=== PATIENT | male | born 1970 | race Two or more races ===

== ENCOUNTER 2018-02-10 13:43 | Emergency (ER) | payer SELFPAY ==
[~2018-02-10] VITALS: Ht 165.1 cm; Wt 72.6 kg
[2018-02-10] MEDS ORDERED: SODIUM CHLORIDE 0.9% 1,000 ML IV ONE ×2 (14:15→14:30)
[2018-02-10] MEDS ORDERED: LORazepam 2MG/ML-1ML VIAL IV ONE (14:30)
[2018-02-10 15:06] LABS: Albumin 3.4 g/dL (3.4-5.0); BUN/Creatinine Ratio 5.9; Basophils # (auto) 0.1 uL; Bilirubin, Total 1.7 mg/dL (0.2-1.0); Calcium 7.9 mg/dL (8.5-10.1); Eosinophils # (auto) 0.1 uL; Eosinophils % (auto) 0.7 % (0.0-7.0); Hematocrit 43.8 % (41.0-53.0); Hemoglobin 15.2 g/dL (13.5-17.5); Lymphocytes # (auto) 1.1 uL; Lymphocytes % (auto) 16.4 % (10.0-50.0); Mean Corpuscular Hemoglobin 33.9 pg (28.0-32.0); Mean Corpuscular Hgb Conc. 34.8 g/dL (32.0-36.0); Mean Corpuscular Volume 97.3 fL (80.0-100.0); Monocytes # (auto) 0.6 uL; Monocytes % (auto) 8.9 % (0.0-12.0); Nucleated Red Blood Cells % 0.1 %; Platelet Count (auto) 174 10^3/uL (140-450); Potassium 3.5 mmol/L (3.5-5.1); Total Protein 8.8 g/dL (6.4-8.2); White Blood Cell 6.8 10^3/uL (4.4-10.8)
[2018-02-10 15:40] LABS: Urine Bacteria NONE SEEN /hpf (None Seen); Urine Blood 1+ /uL (Negative); Urine Mucus FEW (None Seen); Urine WBC <1 /hpf (0 - 3)
[2018-02-10 16:27] LABS: Amphetamine Screen, Urine NEGATIVE (NEGATIVE); Barbiturate Scree,Urine NEGATIVE (NEGATIVE); Benzodiazephine Screen, Urine NEGATIVE (NEGATIVE); Cannabinoid Screen, Urine NEGATIVE (NEGATIVE); Cocaine Screen, Urine NEGATIVE (NEGATIVE); Opiate Scree,Urine NEGATIVE (NEGATIVE); Phencyclidine Screen, Urine NEGATIVE (NEGATIVE)
[2018-02-10 17:20] VITALS: BP 159/96
== END 2018-02-10 17:38 | disposition home or self-care (01) ==
LOC: ER 13:46
DX: T78.40XA Allergy, unspecified, initial encounter (principal); F10.239 Alcohol dependence with withdrawal, unspecified; X58.XXXA Exposure to other specified factors, initial encounter
CPT/HCPCS: 36415; 80053; 80307; 80320; 81001; 85025; 93005; 94761; 96361; 96374; 99285; J2060; J7030

== ENCOUNTER 2018-04-02 13:34 | Emergency (ER) | payer MEDICAID ==
[~2018-04-02] VITALS: Ht 165.1 cm; Wt 72.6 kg
[2018-04-02 15:11] VITALS: BP 142/82
[2018-04-02] MEDS ORDERED: GABAPENTIN 300 MG CAP PO ONE (16:15)
== END 2018-04-02 16:21 | disposition home or self-care (01) ==
LOC: ER 13:34
DX: G89.29 Other chronic pain (principal); M79.671 Pain in right foot

== ENCOUNTER → 2020-01-21 | Emergency (ER) | payer MEDICAID ==
[~2020-01-21] VITALS: Ht 165.1 cm; Wt 72.6 kg
[~2020-01-21] MED LIST: LORazepam 2MG/ML-1ML VIAL IV ONE; ONDANSETRON HCL 4 MG/2 ML VIAL IV ONE; SODIUM CHLORIDE 0.9% 1,000 ML IV ONE
[2020-01-21 18:37] LABS: Urine Bacteria NONE SEEN /hpf (None Seen); Urine Blood 2+ /uL (Negative); Urine Mucus FEW (None Seen); Urine Specific Gravity 1.018 (1.001-1.035); Urine WBC 5 /hpf (0 - 3)
[2020-01-21 18:38] LABS: Eosinophils # (auto) 0.1 10 ^3/uL (0-0.8); Hemoglobin 14.4 g/dL (13.5-17.5); Neutrophils # (auto) 4.6 10 ^3/uL (1.6-8.6); White Blood Cell 8.1 10^3/uL (4.4-10.8)
[2020-01-21 18:39] LABS: Urine Hyaline Cast FEW /lpf (0 - 2)
[2020-01-21 18:40] LABS: Basophils # (auto) 0 10 ^3/uL (0-0.2); Basophils % (auto) 0.2 % (0.0-2.0); Eosinophils % (auto) 1.5 % (0.0-7.0); Hematocrit 41.1 % (41.0-53.0); Lymphocytes # (auto) 2.2 10 ^3/uL (0.4-5.4); Lymphocytes % (auto) 27.9 % (10.0-50.0); Mean Corpuscular Hemoglobin 35.8 pg (28.0-32.0); Mean Corpuscular Hgb Conc. 35.1 g/dL (32.0-36.0); Monocytes # (auto) 1.1 10 ^3/uL (0-1.3); Monocytes % (auto) 13.1 % (0.0-12.0); Neutrophils % (auto) 57.3 % (37.0-80.0); Platelet Count (auto) 68 10^3/uL (140-450); Red Blood Cells 4.03 10^6/uL (4.5-5.90); Red Cell Distribution Width 14.5 % (11.8-14.3)
[2020-01-21 18:56] LABS: Albumin 2.5 g/dL (3.4-5.0); BUN/Creatinine Ratio 5.2; Calcium 7.8 mg/dL (8.5-10.1); Potassium 3.6 mmol/L (3.5-5.1)
[2020-01-21 18:58] LABS: Bilirubin, Total 3.4 mg/dL (0.2-1.0); Total Protein 8.7 g/dL (6.4-8.2)
[2020-01-21 19:06] LABS: Amphetamine Screen, Urine NEGATIVE (NEGATIVE); Barbiturate Scree,Urine NEGATIVE (NEGATIVE); Benzodiazephine Screen, Urine NEGATIVE (NEGATIVE); Cannabinoid Screen, Urine NEGATIVE (NEGATIVE); Cocaine Screen, Urine NEGATIVE (NEGATIVE); Opiate Scree,Urine NEGATIVE (NEGATIVE); Phencyclidine Screen, Urine NEGATIVE (NEGATIVE)
[2020-01-22] VITALS: BP 131/75
== END | disposition home or self-care (01) ==
LOC: ER 17:46
DX: F10.239 Alcohol dependence with withdrawal, unspecified (principal); R11.2 Nausea with vomiting, unspecified; R53.1 Weakness; Y90.8 Blood alcohol level of 240 mg/100 ml or more
CPT/HCPCS: 36415; 80053; 80307; 80320; 81001; 82140; 85025; 93005; 96361; 96374; 96375; 99284; J2060; J2405; J7030

== ENCOUNTER 2020-02-25 16:51 | Inpatient (IN) | payer MEDICAID ==
[~2020-02-25] VITALS: Ht 167.6 cm; Wt 72.4 kg
[2020-02-25 18:16] LABS: Basophils # (auto) 0.1 10 ^3/uL (0-0.2); Eosinophils # (auto) 0.2 10 ^3/uL (0-0.8); Eosinophils % (auto) 2.8 % (0.0-7.0); Hemoglobin 13.6 g/dL (13.5-17.5); Monocytes # (auto) 0.9 10 ^3/uL (0-1.3); White Blood Cell 8.4 10^3/uL (4.4-10.8)
[2020-02-25 18:17] LABS: Urine Bacteria FEW /hpf (None Seen); Urine Blood 3+ /uL (Negative); Urine Budding Yeast FEW /hpf (None Seen); Urine Hyaline Cast FEW /lpf (0 - 2); Urine Mucus FEW (None Seen); Urine Specific Gravity 1.018 (1.001-1.035); Urine WBC 8 /hpf (0 - 3)
[2020-02-25 18:18] LABS: Hematocrit 39.7 % (41.0-53.0); Lymphocytes # (auto) 1.9 10 ^3/uL (0.4-5.4); Lymphocytes % (auto) 22.8 % (10.0-50.0); Mean Corpuscular Hemoglobin 35.9 pg (28.0-32.0); Mean Corpuscular Hgb Conc. 34.4 g/dL (32.0-36.0); Mean Corpuscular Volume 104.4 fL (80.0-100.0); Monocytes % (auto) 10.5 % (0.0-12.0); Neutrophils # (auto) 5.3 10 ^3/uL (1.6-8.6); Neutrophils % (auto) 62.9 % (37.0-80.0); Platelet Count (auto) 198 10^3/uL (140-450); Red Cell Distribution Width 13.9 % (11.8-14.3)
[2020-02-25 18:25] LABS: Albumin 2.2 g/dL (3.4-5.0); BUN/Creatinine Ratio 5.1; Calcium 7.6 mg/dL (8.5-10.1); Potassium 3.7 mmol/L (3.5-5.1)
[2020-02-25 18:28] LABS: Bilirubin, Total 2.9 mg/dL (0.2-1.0); Total Protein 7.9 g/dL (6.4-8.2)
[2020-02-25] MEDS ORDERED: MORPHINE SULF INJ 2 MG/ML SYRINGE 1ML IV PRN (20:30)
[2020-02-25] MEDS ORDERED: CEFOTAXIME SODIUM 1 GM in D5W 5% 50 ML IV ONE (20:30)
[2020-02-25] MEDS ORDERED: FUROSEMIDE 100 MG/10ML VIAL IV ONE (20:30)
[2020-02-25] MEDS ORDERED: NITROGLYCERIN 0.4 MG SL TAB SL PRN (20:30)
[2020-02-25] MEDS ORDERED: ALBUMIN 25% 100 ML IV SCH (20:30)
[2020-02-25] MEDS ORDERED: ALBUMIN 5% 50 ML IV ONE (20:30)
[2020-02-25] MEDS ORDERED: PROPRANOLOL HCL 20 MG TAB PO ONE (20:30)
[2020-02-25] MEDS ORDERED: LORazepam 2MG/ML-1ML VIAL IV PRN (20:30)
[2020-02-25] MEDS ORDERED: LACTULOSE 20Gm/30ML SOLN PO ONE (20:45)
[2020-02-25] MEDS ORDERED: LACTULOSE 20Gm/30ML SOLN PR ONE (20:45)
[2020-02-25 22:30] VITALS: BP 151/85
--- NOTE | 2020-02-25 22:30 | NUR ---
Telemetry admit from ER JIAN ETIENNE admitted to Telemetry unit.. Patient oriented to Kim Donald RN primary RN, unit, room, bed, and unit policies regarding patient care and visiting hours. Patient now on continuous telemetry monitoring, tele box # 65. Patient weighed by bedscale and encouraged to call if they need something. All questions and concerns addressed, patient verbalized understanding. Bed is in lowest locked position with bed rails up x2 and call light is within reach of the patient.
[2020-02-25 22:58] VITALS: BP 151/85
[2020-02-26] MEDS ORDERED: PIPERACILLIN-TAZOB 3.375GM 100 ML IV SCH
--- NOTE | 2020-02-26 | NUR ---
Reconcile meds: Patient unable to recall medications from home. Asked the patient if in the AM he could contact brothers to send medication list for medication reconciliation and to notify the nurse. Patient verbalized understanding. Will notify day shift nurse.
--- NOTE | 2020-02-26 00:02 | NUR ---
Hospitalist paged: Paged Hospitalist regarding patients nausea. No nausea medication ordered. Waiting for call back.
--- NOTE | 2020-02-26 00:39 | NUR ---
Hospitalist called back: Hospitalist Adan called back. Updated about patient and notified that the patient was having some nausea with no nuasea medication ordered. New orders received. To place orders.
[2020-02-26] MEDS ORDERED: ONDANSETRON HCL 4 MG/2 ML VIAL IV PRN (00:45)
--- NOTE | 2020-02-26 03:50 | NUR ---
Called lab to verify if Mrsa swab was received: Called lab to verify if MRSA swab of nares was received. tattoo technician confirmed that it was received and that they have it, and that it will take a while to process.
[2020-02-26 05:52] VITALS: BP 125/73
[2020-02-26] MEDS ORDERED: CEFOTAXIME SODIUM 1 GM in D5W 5% 50 ML IV SCH (06:00)
[2020-02-26] MEDS ORDERED: FUROSEMIDE 20 MG/2 ML VIAL IV SCH (06:00)
[2020-02-26] MEDS: LACTULOSE 20Gm/30ML SOLN PO SCH ×3 (06:03→17:37)
[2020-02-26 07:17] LABS: Basophils # (auto) 0.1 10 ^3/uL (0-0.2); Eosinophils # (auto) 0.2 10 ^3/uL (0-0.8); Hematocrit 37.4 % (41.0-53.0); Monocytes # (auto) 0.7 10 ^3/uL (0-1.3); Neutrophils # (auto) 4.4 10 ^3/uL (1.6-8.6); White Blood Cell 6.5 10^3/uL (4.4-10.8)
[2020-02-26 07:20] LABS: Eosinophils % (auto) 3.3 % (0.0-7.0); Hemoglobin 13.1 g/dL (13.5-17.5); Lymphocytes # (auto) 1.2 10 ^3/uL (0.4-5.4); Lymphocytes % (auto) 17.7 % (10.0-50.0); Mean Corpuscular Hemoglobin 36.3 pg (28.0-32.0); Mean Corpuscular Hgb Conc. 35.1 g/dL (32.0-36.0); Mean Corpuscular Volume 103.6 fL (80.0-100.0); Monocytes % (auto) 11.2 % (0.0-12.0); Neutrophils % (auto) 66.8 % (37.0-80.0); Nucleated Red Blood Cells % 0.2 %; Platelet Count (auto) 168 10^3/uL (140-450); Red Blood Cells 3.61 10^6/uL (4.5-5.90); Red Cell Distribution Width 13.9 % (11.8-14.3)
[2020-02-26 07:30] LABS: INR 1.33 (0.9-1.15); Partial Thromboplastin Time 31.2 sec (23.64-32.05)
--- NOTE | 2020-02-26 07:30 | NUR ---
No diet ordered. With orders for Paracentesis.
--- NOTE | 2020-02-26 07:31 | NUR ---
Closing note: Patient resting in bed with breaths even and unlabored. Reminded patient to obtain his medication list from home. Patient verbalized understanding. Bed is in lowest locked position with bed rails up x2 and call light is within reach. Care endorsed to day shift nurse.
[2020-02-26 07:34] LABS: Magnesium 1.4 mg/dL (1.6-2.6); Potassium 3.1 mmol/L (3.5-5.1)
[2020-02-26 07:41] LABS: BUN/Creatinine Ratio 5.3; Bilirubin, Total 3.5 mg/dL (0.2-1.0); Calcium 7.3 mg/dL (8.5-10.1); Phosphorus 3.1 mg/dL (2.5-4.90); Total Protein 7.3 g/dL (6.4-8.2)
--- NOTE | 2020-02-26 08:05 | NUR ---
Patient in bed, awake. Enlarged, distended abdomen noted. Tumbler Machine Operator Helper at bedside.
[2020-02-26 09:00] VITALS: BP 124/80
--- NOTE | 2020-02-26 09:35 | NUR ---
Patient complained he's hungry. No diet ordered. Virgil hare MD.
--- NOTE | 2020-02-26 09:40 | NUR ---
Paged Dr. Martinez.
--- NOTE | 2020-02-26 09:46 | NUR ---
Called Radiology. Spoke with Melissa. No specific time for Paracentesis today, patient can eat as per Radiology.
--- NOTE | 2020-02-26 10:10 | NUR ---
Tour Bus Driver at bedside explaining to patient the Paracentesis.
[2020-02-26] MEDS: PROPRANOLOL HCL 20 MG TAB PO SCH ×2 (10:12→21:56)
[2020-02-26] MEDS: cefTRIAXone 1GM/50ML D5W 50 ML IV SCH (10:12)
[2020-02-26] MEDS: SPIRONOLACTONE 25 MG TAB PO SCH (10:13)
[2020-02-26] MEDS: DOCUSATE SOD 100 MG CAP PO SCH ×2 (10:13→21:56)
[2020-02-26] MEDS: LISINOPRIL 10 MG TAB PO SCH (10:13)
--- NOTE | 2020-02-26 10:15 | NUR ---
Patient stated he will think about in 30 minutes if he will have the Paracentesis today or not.
--- NOTE | 2020-02-26 10:45 | NUR ---
Patient stated he wants to have the Paracentesis.
--- NOTE | 2020-02-26 11:22 | NUR ---
Patient complained of two bulges under his right and left jawline. Will inform the MD.
[2020-02-26] MEDS ORDERED: POTASSIUM CHLORIDE 40 MEQ, LIDOCAINE 1% (LOCAL ANESTH.) 4 ML in SODIUM CHL 0.9% 100 ML IV ONE (12:00)
--- NOTE | 2020-02-26 12:00 | NUR ---
Yusuf Fournier came over. to put in new orders. Dr. Jeff ordered low salt diet after the Paracentesis.
--- NOTE | 2020-02-26 12:05 | NUR ---
Eusebio Diaz has seen the patient for GI Consult. is aware of the Paracentesis. Dr. Boykin put in new orders.
[2020-02-26] MEDS: MAGNESIUM SULFATE 1GM/100ML 100 ML IV SCH ×2 (12:34→14:41)
--- NOTE | 2020-02-26 12:40 | NUR ---
New IV line started on the right AC, 20 gauge, in one attempt, intact and patent. Patient able to tolerate it.
[2020-02-26 13:00] VITALS: BP 133/92
--- NOTE | 2020-02-26 13:20 | NUR ---
Patient off unit. At Radiology for Paracentesis.
--- NOTE | 2020-02-26 14:40 | NUR ---
Patient back to room post paracentesis.
[2020-02-26 16:50] VITALS: BP 144/86
--- NOTE | 2020-02-26 19:20 | NUR ---
Opening Shift Note Assumed care of patient. Patient is awake and alert. No S/S of distress/SOB or pain. Instructed on POC and to call for assist PRN, will continue to monitor for changes Q1hr and PRN. Bed locked in lowest position and bed rails up x2. Call light within reach.
[2020-02-26 22:00] VITALS: BP 125/73
[2020-02-27] MEDS: LACTULOSE 20Gm/30ML SOLN PO SCH ×3 (00:03→11:53)
[2020-02-27 05:00] VITALS: BP 135/77
[2020-02-27 06:22] LABS: Basophils # (auto) 0 10 ^3/uL (0-0.2); Eosinophils # (auto) 0.2 10 ^3/uL (0-0.8); Lymphocytes # (auto) 1.2 10 ^3/uL (0.4-5.4); Monocytes # (auto) 0.8 10 ^3/uL (0-1.3); White Blood Cell 7.6 10^3/uL (4.4-10.8)
[2020-02-27 06:24] LABS: Basophils % (auto) 0.6 % (0.0-2.0); Eosinophils % (auto) 2.4 % (0.0-7.0); Hematocrit 36.8 % (41.0-53.0); Lymphocytes % (auto) 15.9 % (10.0-50.0); Mean Corpuscular Hemoglobin 36.9 pg (28.0-32.0); Mean Corpuscular Hgb Conc. 35.4 g/dL (32.0-36.0); Mean Corpuscular Volume 104.2 fL (80.0-100.0); Monocytes % (auto) 10.8 % (0.0-12.0); Neutrophils # (auto) 5.4 10 ^3/uL (1.6-8.6); Neutrophils % (auto) 70.3 % (37.0-80.0); Platelet Count (auto) 117 10^3/uL (140-450); Red Blood Cells 3.53 10^6/uL (4.5-5.90); Red Cell Distribution Width 13.4 % (11.8-14.3)
[2020-02-27 06:37] LABS: Potassium 3.2 mmol/L (3.5-5.1)
[2020-02-27 06:50] LABS: Albumin 1.7 g/dL (3.4-5.0); BUN/Creatinine Ratio 11.6; Bilirubin, Total 4.6 mg/dL (0.2-1.0); Calcium 7.2 mg/dL (8.5-10.1); Magnesium 1.8 mg/dL (1.6-2.6); Total Protein 6.4 g/dL (6.4-8.2)
[2020-02-27 09:00] VITALS: BP 141/85
[2020-02-27] MEDS: cefTRIAXone 1GM/50ML D5W 50 ML IV SCH (09:04)
[2020-02-27] MEDS: SPIRONOLACTONE 25 MG TAB PO SCH (09:05)
[2020-02-27] MEDS: DOCUSATE SOD 100 MG CAP PO SCH (09:05)
[2020-02-27] MEDS: PROPRANOLOL HCL 20 MG TAB PO SCH (09:07)
[2020-02-27] MEDS: LISINOPRIL 10 MG TAB PO SCH (09:08)
[2020-02-27] MEDS ORDERED: FUROSEMIDE 20 MG TAB PO SCH (10:00)
[2020-02-27 12:32] VITALS: BP 130/77
--- NOTE | 2020-02-27 12:43 | NUR ---
AMA Note JIAN ETIENNE states they want to leave the hospital Against Medical Advice (AMA). Patient encouraged to stay for further treatment/stabilization. Doctor Randee paged to inform of patient's wishes. Patient advised of the risks and benefits of leaving AMA. Patient verbalized understanding. Patient encouraged to return to the ER if symptoms do not improve or worsen. IV removed with catheter intact, pressure dressing applied. Telemetry unit returned to ICU. Patient ambulated to elevator with with all personal belongings.
[2020-02-29 14:13] LABS: Hepatitis A Ab IgM Negative; Hepatitis B Core IgM Negative; Hepatitis B Surface Antigen Negative (Negative); Hepatitis C Antibody Negative (Negative)
== END 2020-02-27 12:43 | disposition left against medical advice (07) | DRG 279 ==
LOC: ER 16:51 → TELE 16:52 → TELE-WESTW 22:32
PROVIDERS: ADMIT Hospitalist; ATTEND Internal Medicine
PROC: 0W9G3ZZ Drainage of Peritoneal Cavity, Percutaneous Approach (ICD-10-PCS; principal; 2020-02-26)
DX: K72.90 Hepatic failure, unspecified without coma (principal); E43 Unspecified severe protein-calorie malnutrition; K65.9 Peritonitis, unspecified; E72.20 Disorder of urea cycle metabolism, unspecified; K70.31 Alcoholic cirrhosis of liver with ascites; K76.6 Portal hypertension; I16.9 Hypertensive crisis, unspecified; F10.10 Alcohol abuse, uncomplicated; F17.200 Nicotine dependence, unspecified, uncomplicated; E87.6 Hypokalemia; Z91.19 Patient's noncompliance with other medical treatment and regimen; Z79.899 Other long term (current) drug therapy; Z68.25 Body mass index [BMI] 25.0-25.9, adult; Z53.29 Procedure and treatment not carried out because of patient's decision for other reasons
CPT/HCPCS: 10022; 36415; 74176; 76705; 76942; 80053; 80061; 80074; 81001; 82105; 82140; 82378; 82728; 83036; 83735; 83986; 84100; 85025; 85610; 85730; 87081; 87205; 89051; 96365; 96375; G0378; J0696; J2001; J2543; J7060

== ENCOUNTER 2020-03-11 23:45 | Emergency (ER) | payer MEDICAID ==
[~2020-03-11] VITALS: Ht 167.6 cm; Wt 72.6 kg
[2020-03-11 23:46] VITALS: BP 145/86
== END 2020-03-12 00:43 | disposition left against medical advice (07) ==
LOC: EDBD 23:45 → EDUNIT# 23:45 → ER 23:47
DX: F10.10 Alcohol abuse, uncomplicated (principal); Z53.21 Procedure and treatment not carried out due to patient leaving prior to being seen by health care provider

== ENCOUNTER 2020-03-14 01:06 | Inpatient (IN) | payer MEDICAID ==
[2020-03-14] VITALS (14 sets, daily range): BP systolic 132–154; BP diastolic 80–97
[~2020-03-14] VITALS: Ht 165.1 cm; Wt 73.7 kg
[2020-03-14 02:00] LABS: Eosinophils # (auto) 0.3 10 ^3/uL (0-0.8); Hemoglobin 14.2 g/dL (13.5-17.5); Monocytes # (auto) 0.8 10 ^3/uL (0-1.3)
[2020-03-14 02:02] LABS: Basophils # (auto) 0.1 10 ^3/uL (0-0.2); Basophils % (auto) 1.5 % (0.0-2.0); Eosinophils % (auto) 3.3 % (0.0-7.0); Hematocrit 41.3 % (41.0-53.0); Lymphocytes # (auto) 2.3 10 ^3/uL (0.4-5.4); Lymphocytes % (auto) 24.9 % (10.0-50.0); Mean Corpuscular Hemoglobin 35.9 pg (28.0-32.0); Mean Corpuscular Hgb Conc. 34.4 g/dL (32.0-36.0); Mean Corpuscular Volume 104.2 fL (80.0-100.0); Monocytes % (auto) 8.8 % (0.0-12.0); Neutrophils # (auto) 5.7 10 ^3/uL (1.6-8.6); Neutrophils % (auto) 61.5 % (37.0-80.0); Nucleated Red Blood Cells % 0.1 %; Platelet Count (auto) 232 10^3/uL (140-450); Red Blood Cells 3.96 10^6/uL (4.5-5.90); Red Cell Distribution Width 13.4 % (11.8-14.3); White Blood Cell 9.3 10^3/uL (4.4-10.8)
[2020-03-14 02:18] LABS: Potassium 4.4 mmol/L (3.5-5.1)
[2020-03-14 02:19] LABS: Calcium 7.7 mg/dL (8.5-10.1)
[2020-03-14 02:22] LABS: BUN/Creatinine Ratio 7.7; Bilirubin, Total 3.3 mg/dL (0.2-1.0); Total Protein 8.2 g/dL (6.4-8.2)
[2020-03-14] MEDS ORDERED: MULTIPLE VITAMIN TAB PO ONE (02:45)
[2020-03-14] MEDS ORDERED: FOLIC ACID 1 MG TAB PO ONE (02:45)
[2020-03-14] MEDS ORDERED: THIAMINE 100mg/ml INJ (200mg/2ml VIAL) IV ONE (02:45)
[2020-03-14] MEDS ORDERED: DOCUSATE SOD 100 MG CAP PO PRN (03:00)
[2020-03-14] MEDS ORDERED: HYDROcodone-ACET 5/325MG TAB PO PRN (03:00)
[2020-03-14] MEDS ORDERED: DEXTROSE (50%) 50ML SYRG IV PRN (03:00)
[2020-03-14] MEDS ORDERED: ONDANSETRON HCL 4 MG/2 ML VIAL IV PRN (03:00)
[2020-03-14] MEDS ORDERED: MORPHINE SULF INJ 2 MG/ML SYRINGE 1ML IV PRN (03:00)
[2020-03-14] MEDS ORDERED: ACETAMINOPHEN 325 MG TAB PO PRN (03:00)
[2020-03-14] MEDS ORDERED: LACTULOSE 20Gm/30ML SOLN PO ONE (03:45)
[2020-03-14] MEDS: chlordiazePOXIDE HCL 25 MG CAP PO SCH ×3 (03:47→18:28)
[2020-03-14] MEDS: ACCU-CHEK COMFORT CURVE STRIP VI SCH ×5 (03:48→23:24)
[2020-03-14] MEDS: InsuLIN REG 1unit/0.01ml Soln (100units/ml) SC SCH ×5 (03:48→20:00)
[2020-03-14 04:11] LABS: Urine Amorphous Crystal FEW /hpf (None Seen); Urine Bacteria FEW /hpf (None Seen); Urine Blood 3+ /uL (Negative); Urine Hyaline Cast MANY /lpf (0 - 2); Urine Mucus FEW (None Seen); Urine Specific Gravity 1.022 (1.001-1.035); Urine WBC 9 /hpf (0 - 3)
[2020-03-14 04:21] LABS: Amphetamine Screen, Urine NEGATIVE (NEGATIVE); Barbiturate Scree,Urine NEGATIVE (NEGATIVE); Benzodiazephine Screen, Urine NEGATIVE (NEGATIVE); Cannabinoid Screen, Urine NEGATIVE (NEGATIVE); Cocaine Screen, Urine NEGATIVE (NEGATIVE); Opiate Scree,Urine NEGATIVE (NEGATIVE); Phencyclidine Screen, Urine NEGATIVE (NEGATIVE)
[2020-03-14 07:16] LABS: Basophils # (auto) 0.1 10 ^3/uL (0-0.2); Eosinophils # (auto) 0.2 10 ^3/uL (0-0.8); Mean Corpuscular Volume 103.2 fL (80.0-100.0)
[2020-03-14 07:18] LABS: Basophils % (auto) 0.8 % (0.0-2.0); Eosinophils % (auto) 2.6 % (0.0-7.0); Hematocrit 38.1 % (41.0-53.0); Hemoglobin 13.2 g/dL (13.5-17.5); Lymphocytes # (auto) 1.5 10 ^3/uL (0.4-5.4); Lymphocytes % (auto) 23.9 % (10.0-50.0); Mean Corpuscular Hemoglobin 35.9 pg (28.0-32.0); Mean Corpuscular Hgb Conc. 34.8 g/dL (32.0-36.0); Monocytes # (auto) 0.7 10 ^3/uL (0-1.3); Monocytes % (auto) 10.3 % (0.0-12.0); Neutrophils % (auto) 62.4 % (37.0-80.0); Nucleated Red Blood Cells % 0.1 %; Platelet Count (auto) 152 10^3/uL (140-450); Red Blood Cells 3.69 10^6/uL (4.5-5.90); White Blood Cell 6.4 10^3/uL (4.4-10.8)
[2020-03-14 07:23] LABS: Calcium 7.6 mg/dL (8.5-10.1)
[2020-03-14 07:26] LABS: BUN/Creatinine Ratio 8.8
[2020-03-14 08:23] LABS: INR 1.3 (0.9-1.15)
[2020-03-14] MEDS: CYANOCOBALAMIN 500 MCG TAB PO SCH (10:00)
[2020-03-14] MEDS: FOLIC ACID 1 MG TAB PO SCH (10:00)
[2020-03-14] MEDS: LACTULOSE 20Gm/30ML SOLN PO SCH (16:03)
[2020-03-14] MEDS: FUROSEMIDE 20 MG TAB PO SCH (16:04)
[2020-03-14] MEDS: SPIRONOLACTONE 25 MG TAB PO SCH (16:04)
[2020-03-15] MEDS: ACCU-CHEK COMFORT CURVE STRIP VI SCH ×3 (00:26→10:31)
[2020-03-15] MEDS: InsuLIN REG 1unit/0.01ml Soln (100units/ml) SC SCH ×3 (04:00→10:32)
[2020-03-15 05:00] VITALS: BP_SYST 151; BP_SYST 157; BP_DIAS 92; BP_DIAS 95
[2020-03-15 05:49] LABS: Basophils # (auto) 0 10 ^3/uL (0-0.2); Basophils % (auto) 0.7 % (0.0-2.0); Eosinophils # (auto) 0.3 10 ^3/uL (0-0.8); Hemoglobin 12.9 g/dL (13.5-17.5); Monocytes # (auto) 0.5 10 ^3/uL (0-1.3); Monocytes % (auto) 9.6 % (0.0-12.0); Neutrophils # (auto) 2.9 10 ^3/uL (1.6-8.6)
[2020-03-15 05:52] LABS: Eosinophils % (auto) 5.6 % (0.0-7.0); Hematocrit 36.8 % (41.0-53.0); Lymphocytes # (auto) 1.1 10 ^3/uL (0.4-5.4); Lymphocytes % (auto) 23.6 % (10.0-50.0); Mean Corpuscular Hemoglobin 36.4 pg (28.0-32.0); Mean Corpuscular Hgb Conc. 35.1 g/dL (32.0-36.0); Mean Corpuscular Volume 103.9 fL (80.0-100.0); Neutrophils % (auto) 60.5 % (37.0-80.0); Platelet Count (auto) 95 10^3/uL (140-450); Red Blood Cells 3.54 10^6/uL (4.5-5.90); Red Cell Distribution Width 12.9 % (11.8-14.3); White Blood Cell 4.8 10^3/uL (4.4-10.8)
[2020-03-15 06:14] LABS: Albumin 1.5 g/dL (3.4-5.0); BUN/Creatinine Ratio 12.9; Bilirubin, Total 5.3 mg/dL (0.2-1.0); Potassium 3.5 mmol/L (3.5-5.1); Total Protein 6.3 g/dL (6.4-8.2)
[2020-03-15 09:00] VITALS: BP 161/94
[2020-03-15] MEDS ORDERED: chlordiazePOXIDE HCL 25 MG CAP PO SCH (10:00)
[2020-03-15] MEDS: FUROSEMIDE 20 MG TAB PO SCH (10:05)
[2020-03-15] MEDS: CYANOCOBALAMIN 500 MCG TAB PO SCH (10:05)
[2020-03-15] MEDS: SPIRONOLACTONE 25 MG TAB PO SCH (10:05)
[2020-03-15] MEDS: FOLIC ACID 1 MG TAB PO SCH (10:05)
[2020-03-15] MEDS: LACTULOSE 20Gm/30ML SOLN PO SCH (10:31)
[2020-03-16] MEDS ORDERED: chlordiazePOXIDE HCL 25 MG CAP PO SCH (10:00)
[2020-03-17] MEDS ORDERED: chlordiazePOXIDE HCL 25 MG CAP PO SCH (07:00)
== END 2020-03-15 12:35 | disposition home or self-care (01) | DRG 280 ==
LOC: ER 01:07 → OVERFLOW 01:08 → WEST WING 04:47
PROVIDERS: ADMIT Hospitalist; ATTEND Internal Medicine
PROC: 0W9G3ZX Drainage of Peritoneal Cavity, Percutaneous Approach, Diagnostic (ICD-10-PCS; principal; 2020-03-14)
DX: K70.31 Alcoholic cirrhosis of liver with ascites (principal); E43 Unspecified severe protein-calorie malnutrition; G92 Toxic encephalopathy; D69.59 Other secondary thrombocytopenia; K76.6 Portal hypertension; E88.09 Other disorders of plasma-protein metabolism, not elsewhere classified; R60.1 Generalized edema; I10 Essential (primary) hypertension; R73.9 Hyperglycemia, unspecified; F10.129 Alcohol abuse with intoxication, unspecified; Y90.0 Blood alcohol level of less than 20 mg/100 ml; Z82.49 Family history of ischemic heart disease and other diseases of the circulatory system; Z91.14 Patient's other noncompliance with medication regimen; Z68.27 Body mass index [BMI] 27.0-27.9, adult; Z79.899 Other long term (current) drug therapy
CPT/HCPCS: 10022; 36415; 74176; 76942; 80048; 80053; 80307; 80320; 81001; 82140; 82150; 82962; 83036; 83690; 83986; 85025; 85610; 87081; 87205; 89051; G0378; J1815

== ENCOUNTER 2020-04-09 22:27 | Inpatient (IN) | payer MEDICAID ==
[~2020-04-09] VITALS: Ht 167.6 cm; Wt 74.8 kg
[2020-04-09 23:01] LABS: Eosinophils # (auto) 0.2 10 ^3/uL (0-0.8); Mean Corpuscular Hemoglobin 36.2 pg (28.0-32.0); Mean Corpuscular Hgb Conc. 35.1 g/dL (32.0-36.0); Monocytes # (auto) 0.8 10 ^3/uL (0-1.3)
[2020-04-09 23:03] LABS: Basophils # (auto) 0.1 10 ^3/uL (0-0.2); Basophils % (auto) 0.8 % (0.0-2.0); Eosinophils % (auto) 2.8 % (0.0-7.0); Hematocrit 38.1 % (41.0-53.0); Hemoglobin 13.4 g/dL (13.5-17.5); Lymphocytes # (auto) 1.4 10 ^3/uL (0.4-5.4); Lymphocytes % (auto) 19.5 % (10.0-50.0); Mean Corpuscular Volume 103.1 fL (80.0-100.0); Monocytes % (auto) 11.7 % (0.0-12.0); Neutrophils # (auto) 4.6 10 ^3/uL (1.6-8.6); Neutrophils % (auto) 65.2 % (37.0-80.0); Nucleated Red Blood Cells % 0.1 %; Red Cell Distribution Width 13.8 % (11.8-14.3)
[2020-04-09 23:04] LABS: Platelet Count (auto) 82 10^3/uL (140-450)
[2020-04-09 23:15] LABS: INR 1.29 (0.9-1.15); Partial Thromboplastin Time 29.2 sec (23.64-32.05)
[2020-04-09 23:19] LABS: BUN/Creatinine Ratio 5.5; Calcium 7.8 mg/dL (8.5-10.1); Potassium 3.5 mmol/L (3.5-5.1)
[2020-04-10] MEDS ORDERED: SODIUM CHLORIDE 0.9% 1,000 ML IV ONE (08:47)
[2020-04-10] MEDS ORDERED: PANTOPRAZOLE 40 MG/10 ML VIAL INJ IV STA (08:47)
[2020-04-10] MEDS ORDERED: FUROSEMIDE 40 MG/4 ML VIAL ONE (08:58)
[2020-04-10] MEDS ORDERED: LORazepam 2MG/ML-1ML VIAL IV ONE (09:00)
[2020-04-10] MEDS ORDERED: LACTULOSE 20Gm/30ML SOLN PO ONE (09:00)
[2020-04-10] MEDS ORDERED: FUROSEMIDE 40 MG/4 ML VIAL IV ONE (09:00)
[2020-04-10] MEDS ORDERED: SPIRONOLACTONE 25 MG TAB PO ONE (09:00)
[2020-04-10 10:24] LABS: Magnesium 1.7 mg/dL (1.6-2.6)
[2020-04-10 10:53] LABS: Urine Bacteria FEW /hpf (None Seen); Urine Blood 3+ /uL (Negative); Urine Specific Gravity 1.006 (1.001-1.035); Urine WBC 3 /hpf (0 - 3)
[2020-04-10] MEDS ORDERED: NITROGLYCERIN 0.4 MG SL TAB SL PRN (12:30)
[2020-04-10] MEDS ORDERED: MORPHINE SULF INJ 2 MG/ML SYRINGE 1ML IV PRN (12:30)
[2020-04-10] MEDS: FOLIC ACID 1 MG TAB PO SCH (12:44)
[2020-04-10] MEDS: MULTIPLE VITAMIN TAB PO SCH (12:45)
[2020-04-10] MEDS: THIAMINE 100mg/ml INJ (200mg/2ml VIAL) IV SCH (12:45)
[2020-04-10 14:05] LABS: Amphetamine Screen, Urine NEGATIVE (NEGATIVE); Barbiturate Scree,Urine NEGATIVE (NEGATIVE); Benzodiazephine Screen, Urine NEGATIVE (NEGATIVE); Cannabinoid Screen, Urine NEGATIVE (NEGATIVE); Cocaine Screen, Urine NEGATIVE (NEGATIVE); Opiate Scree,Urine NEGATIVE (NEGATIVE); Phencyclidine Screen, Urine NEGATIVE (NEGATIVE)
[2020-04-10] MEDS: FUROSEMIDE 20 MG/2 ML VIAL IV SCH (18:14)
[2020-04-10] MEDS: chlordiazePOXIDE HCL 25 MG CAP PO SCH ×2 (18:28→23:46)
[2020-04-10] MEDS: PROPRANOLOL HCL 20 MG TAB PO SCH (21:47)
[2020-04-11] MEDS: chlordiazePOXIDE HCL 25 MG CAP PO SCH ×4 (05:44→23:59)
[2020-04-11] MEDS: FUROSEMIDE 20 MG/2 ML VIAL IV SCH (05:50)
[2020-04-11] MEDS: FOLIC ACID 1 MG TAB PO SCH (09:22)
[2020-04-11] MEDS: MULTIPLE VITAMIN TAB PO SCH (09:22)
[2020-04-11] MEDS: SPIRONOLACTONE 25 MG TAB PO SCH (09:23)
[2020-04-11] MEDS: PROPRANOLOL HCL 20 MG TAB PO SCH ×2 (09:24→21:45)
[2020-04-11] MEDS: THIAMINE 100mg/ml INJ (200mg/2ml VIAL) IV SCH (09:29)
[2020-04-11 11:37] VITALS: BP 123/85
[2020-04-11 13:00] VITALS: BP 123/85
[2020-04-11] MEDS ORDERED: ALBUMIN 25% 100 ML IV SCH (13:00)
[2020-04-11 16:54] VITALS: BP 129/79
[2020-04-11] MEDS ORDERED: PROP10TA57 PO (18:34)
[2020-04-11] MEDS ORDERED: FURO40TA4 PO (18:34)
[2020-04-11] MEDS ORDERED: SPIR50TA5 PO (18:34)
[2020-04-11] MEDS ORDERED: LACT10SO59 PO (18:34)
[2020-04-11 22:00] VITALS: BP 119/78
[2020-04-12 05:52] VITALS: BP 115/66
[2020-04-12] MEDS: chlordiazePOXIDE HCL 25 MG CAP PO SCH ×2 (06:45→12:04)
[2020-04-12 08:46] VITALS: BP 100/62
[2020-04-12] MEDS ORDERED: THIAMINE HCL 100 MG TAB PO SCH (10:00)
[2020-04-12] MEDS: MULTIPLE VITAMIN TAB PO SCH (10:00)
[2020-04-12] MEDS: PROPRANOLOL HCL 20 MG TAB PO SCH (10:00)
[2020-04-12] MEDS ORDERED: FUROSEMIDE 40 MG TAB PO SCH (10:00)
[2020-04-12] MEDS: SPIRONOLACTONE 25 MG TAB PO SCH (10:00)
[2020-04-12] MEDS: FOLIC ACID 1 MG TAB PO SCH (10:00)
[2020-04-12] MEDS ORDERED: MULTTAB99 PO (10:52)
[2020-04-12 12:54] VITALS: BP 118/73
[2020-04-12] MEDS: ALBUMIN 25% 100 ML IV SCH ×2 (13:28→14:58)
[2020-04-12 15:01] VITALS: BP 118/73
== END 2020-04-12 16:37 | disposition home or self-care (01) | DRG 280 ==
LOC: ER 22:28 → TELE 22:29 → TELE-CENTR 04-11 10:53 → CENTRAL 04-11 20:15
PROVIDERS: ADMIT Nurse Practitioner Acute Care; ATTEND Internal Medicine
PROC: 0W9G3ZZ Drainage of Peritoneal Cavity, Percutaneous Approach (ICD-10-PCS; principal; 2020-04-12)
DX: K70.31 Alcoholic cirrhosis of liver with ascites (principal); E43 Unspecified severe protein-calorie malnutrition; D69.6 Thrombocytopenia, unspecified; D68.9 Coagulation defect, unspecified; K76.6 Portal hypertension; E88.09 Other disorders of plasma-protein metabolism, not elsewhere classified; F10.239 Alcohol dependence with withdrawal, unspecified; I10 Essential (primary) hypertension; D63.8 Anemia in other chronic diseases classified elsewhere; Z91.14 Patient's other noncompliance with medication regimen; Z80.8 Family history of malignant neoplasm of other organs or systems; Z79.899 Other long term (current) drug therapy; Z82.49 Family history of ischemic heart disease and other diseases of the circulatory system; Z68.26 Body mass index [BMI] 26.0-26.9, adult
CPT/HCPCS: 10022; 36415; 49083; 71046; 76705; 76942; 80053; 80307; 81001; 82140; 83690; 83735; 85025; 85610; 85730; 93005; 96361; 96374; 96375; C9113; G0378; P9047

== ENCOUNTER → 2020-04-25 | Emergency (ER) | payer MEDICAID ==
[~2020-04-25] VITALS: Ht 165.1 cm; Wt 79.8 kg
[~2020-04-25] MED LIST changes: +FURO40TA4 PO; +LACT10SO59 PO; -LORazepam 2MG/ML-1ML VIAL IV ONE; +MULTTAB99 PO; -ONDANSETRON HCL 4 MG/2 ML VIAL IV ONE; +PROP10TA57 PO; -SODIUM CHLORIDE 0.9% 1,000 ML IV ONE; +SPIR50TA5 PO
[2020-04-25 08:58] LABS: Basophils # (auto) 0.1 10 ^3/uL (0-0.2); Eosinophils # (auto) 0.1 10 ^3/uL (0-0.8); Eosinophils % (auto) 2.3 % (0.0-7.0); Hemoglobin 12.7 g/dL (13.5-17.5); Neutrophils % (auto) 72.3 % (37.0-80.0)
[2020-04-25 09:00] LABS: Basophils % (auto) 0.9 % (0.0-2.0); Hematocrit 36.3 % (41.0-53.0); Lymphocytes # (auto) 0.9 10 ^3/uL (0.4-5.4); Mean Corpuscular Hemoglobin 36.4 pg (28.0-32.0); Mean Corpuscular Hgb Conc. 35.1 g/dL (32.0-36.0); Mean Corpuscular Volume 103.7 fL (80.0-100.0); Monocytes # (auto) 0.6 10 ^3/uL (0-1.3); Monocytes % (auto) 10.5 % (0.0-12.0); Neutrophils # (auto) 4.5 10 ^3/uL (1.6-8.6); Nucleated Red Blood Cells % 0.1 %; Platelet Count (auto) 141 10^3/uL (140-450); Red Cell Distribution Width 14.3 % (11.8-14.3); White Blood Cell 6.2 10^3/uL (4.4-10.8)
[2020-04-25 09:12] LABS: INR 1.34 (0.9-1.15); Partial Thromboplastin Time 30.3 sec (23.64-32.05)
[2020-04-25 09:18] LABS: Albumin 1.8 g/dL (3.4-5.0); Calcium 7.2 mg/dL (8.5-10.1); Chloride 101 mmol/L (98-107); Lipase 246 U/L (73-393); Potassium 3.8 mmol/L (3.5-5.1); Sodium 132 mmol/L (136-145)
[2020-04-25 09:26] LABS: Alanine Aminotransferase 33 U/L (16-61); Alkaline Phosphatase 137 U/L (45-117); Anion Gap 6 (5-15); Aspartate Aminotransferase 82 U/L (15-37); BUN/Creatinine Ratio 12.3; Bilirubin, Total 3.1 mg/dL (0.2-1.0); Blood Urea Nitrogen 15 mg/dL (7-18); Carbon Dioxide 25 mmol/L (21-32); GFR African American 82 mL/min; GFR Non-African American 67 mL/min; Glucose 90 mg/dL (74-106)
[2020-04-25 12:27] VITALS: BP 113/64
== END | disposition home or self-care (01) ==
LOC: ER 07:50
DX: K70.31 Alcoholic cirrhosis of liver with ascites (principal); E83.51 Hypocalcemia; E87.1 Hypo-osmolality and hyponatremia; R14.0 Abdominal distension (gaseous); E43 Unspecified severe protein-calorie malnutrition; I10 Essential (primary) hypertension; Z68.29 Body mass index [BMI] 29.0-29.9, adult
CPT/HCPCS: 36415; 49083; 76705; 76942; 80053; 83690; 84484; 85025; 85610; 85730; 99285; C1729; 10022; 99291

== ENCOUNTER 2020-05-31 06:11 | Emergency (ER) | payer MEDICAID ==
[~2020-05-31] VITALS: Ht 165.1 cm; Wt 77.1 kg
[2020-05-31 08:36] LABS: Eosinophils # (auto) 0.3 10 ^3/uL (0-0.8); Lymphocytes # (auto) 1.1 10 ^3/uL (0.4-5.4); Neutrophils # (auto) 3.3 10 ^3/uL (1.6-8.6); White Blood Cell 5.4 10^3/uL (4.4-10.8)
[2020-05-31 08:38] LABS: Basophils # (auto) 0 10 ^3/uL (0-0.2); Basophils % (auto) 0.6 % (0.0-2.0); Eosinophils % (auto) 4.9 % (0.0-7.0); Hematocrit 35.5 % (41.0-53.0); Hemoglobin 12.3 g/dL (13.5-17.5); Lymphocytes % (auto) 19.7 % (10.0-50.0); Mean Corpuscular Hemoglobin 35.4 pg (28.0-32.0); Mean Corpuscular Hgb Conc. 34.6 g/dL (32.0-36.0); Mean Corpuscular Volume 102.4 fL (80.0-100.0); Monocytes # (auto) 0.7 10 ^3/uL (0-1.3); Monocytes % (auto) 13.1 % (0.0-12.0); Neutrophils % (auto) 61.7 % (37.0-80.0); Nucleated Red Blood Cells % 0.1 %; Platelet Count (auto) 151 10^3/uL (140-450); Red Blood Cells 3.47 10^6/uL (4.5-5.90)
[2020-05-31 08:56] LABS: Potassium 3.9 mmol/L (3.5-5.1)
[2020-05-31 09:02] LABS: Albumin 1.9 g/dL (3.4-5.0); BUN/Creatinine Ratio 13.1; Calcium 8.2 mg/dL (8.5-10.1); Total Protein 7.4 g/dL (6.4-8.2)
[2020-05-31 09:51] LABS: Urine Bacteria NONE SEEN /hpf (None Seen); Urine Blood 3+ /uL (Negative); Urine Specific Gravity 1.018 (1.001-1.035); Urine WBC 4 /hpf (0 - 3)
[2020-05-31 11:01] LABS: INR 1.26 (0.9-1.15)
--- NOTE | 2020-05-31 11:52 | NUR ---
PT IN ULTRASOUND FOR A PARACENTESIS WITH DR MARCH. VS [id number]%.
[2020-05-31 14:24] VITALS: BP 100/60
== END 2020-05-31 14:27 | disposition home or self-care (01) ==
LOC: ER 06:11
DX: R14.0 Abdominal distension (gaseous) (principal); K70.31 Alcoholic cirrhosis of liver with ascites; I10 Essential (primary) hypertension; Z79.899 Other long term (current) drug therapy
CPT/HCPCS: 36415; 49083; 76705; 76942; 80053; 81001; 85025; 85610; 99285; C1729; 10022

== ENCOUNTER 2020-06-21 07:33 | Emergency (ER) | payer MEDICAID ==
[~2020-06-21] VITALS: Ht 165.1 cm; Wt 67.8 kg
[2020-06-21 08:52] LABS: Basophils # (auto) 0 10 ^3/uL (0-0.2); Monocytes # (auto) 0.9 10 ^3/uL (0-1.3); Neutrophils # (auto) 3.3 10 ^3/uL (1.6-8.6)
[2020-06-21 08:53] LABS: Basophils % (auto) 0.6 % (0.0-2.0); Eosinophils # (auto) 0.3 10 ^3/uL (0-0.8); Eosinophils % (auto) 4.1 % (0.0-7.0); Hematocrit 37.7 % (41.0-53.0); Hemoglobin 12.9 g/dL (13.5-17.5); Lymphocytes # (auto) 1.6 10 ^3/uL (0.4-5.4); Lymphocytes % (auto) 25.6 % (10.0-50.0); Mean Corpuscular Hemoglobin 35.1 pg (28.0-32.0); Mean Corpuscular Hgb Conc. 34.2 g/dL (32.0-36.0); Mean Corpuscular Volume 102.8 fL (80.0-100.0); Monocytes % (auto) 15.2 % (0.0-12.0); Neutrophils % (auto) 54.5 % (37.0-80.0); Nucleated Red Blood Cells % 0.2 %; Platelet Count (auto) 172 10^3/uL (140-450); Red Blood Cells 3.67 10^6/uL (4.5-5.90); White Blood Cell 6.1 10^3/uL (4.4-10.8)
[2020-06-21 09:05] LABS: INR 1.21 (0.9-1.15); Partial Thromboplastin Time 29.6 sec (23.0-31.2)
[2020-06-21 09:17] LABS: Albumin 2.2 g/dL (3.4-5.0); Calcium 8.5 mg/dL (8.5-10.1); Potassium 3.7 mmol/L (3.5-5.1)
[2020-06-21 09:20] LABS: BUN/Creatinine Ratio 9.9; Bilirubin, Total 2.2 mg/dL (0.2-1.0); Total Protein 7.9 g/dL (6.4-8.2)
[2020-06-21 11:35] LABS: Urine Bacteria NONE SEEN /hpf (None Seen); Urine Blood 3+ /uL (Negative); Urine Specific Gravity 1.008 (1.001-1.035); Urine WBC 2 /hpf (0 - 3)
[2020-06-21 11:43] VITALS: BP 111/66
== END 2020-06-21 12:30 | disposition home or self-care (01) ==
LOC: ER 07:33
DX: K70.31 Alcoholic cirrhosis of liver with ascites (principal)
CPT/HCPCS: 36415; 49083; 76700; 76942; 80053; 81001; 85025; 85610; 85730; 99285; C1729; 10022

== ENCOUNTER 2020-08-09 00:16 | Emergency (ER) | payer MEDICAID ==
[~2020-08-09] VITALS: Ht 165.1 cm; Wt 68.9 kg
[2020-08-09 04:08] LABS: Basophils # (auto) 0 10 ^3/uL (0-0.2); Basophils % (auto) 0.4 % (0.0-2.0); Eosinophils # (auto) 0.1 10 ^3/uL (0-0.8); Eosinophils % (auto) 2.3 % (0.0-7.0); Hematocrit 37.3 % (41.0-53.0); Hemoglobin 12.9 g/dL (13.5-17.5); Lymphocytes # (auto) 0.9 10 ^3/uL (0.4-5.4); Lymphocytes % (auto) 17.4 % (10.0-50.0); Mean Corpuscular Hemoglobin 33.7 pg (28.0-32.0); Mean Corpuscular Hgb Conc. 34.5 g/dL (32.0-36.0); Mean Corpuscular Volume 97.6 fL (80.0-100.0); Monocytes # (auto) 0.5 10 ^3/uL (0-1.3); Monocytes % (auto) 10.9 % (0.0-12.0); Neutrophils # (auto) 3.5 10 ^3/uL (1.6-8.6); Nucleated Red Blood Cells % 0.1 %; Platelet Count (auto) 84 10^3/uL (140-450); Red Blood Cells 3.82 10^6/uL (4.5-5.90); Red Cell Distribution Width 14.1 % (11.8-14.3)
[2020-08-09 04:30] LABS: Albumin 2.4 g/dL (3.4-5.0); Anion Gap 8 (5-15); Blood Urea Nitrogen 7 mg/dL (7-18); Calcium 7.9 mg/dL (8.5-10.1); Carbon Dioxide 24 mmol/L (21-32); Chloride 105 mmol/L (98-107); Glucose 96 mg/dL (74-106); Magnesium 1.8 mg/dL (1.6-2.6); Potassium 3.3 mmol/L (3.5-5.1); Sodium 137 mmol/L (136-145)
[2020-08-09 04:36] LABS: Alanine Aminotransferase 23 U/L (16-61); Alkaline Phosphatase 103 U/L (45-117); Aspartate Aminotransferase 46 U/L (15-37); Bilirubin, Total 2.8 mg/dL (0.2-1.0); GFR African American 154 mL/min; GFR Non-African American 127 mL/min; Total Protein 6.6 g/dL (6.4-8.2)
[2020-08-09 04:46] LABS: INR 1.24 (0.9-1.15); Partial Thromboplastin Time 31.5 sec (23.0-31.2)
[2020-08-09 14:42] LABS: Urine Bacteria FEW /hpf (None Seen); Urine Blood 3+ /uL (Negative); Urine Mucus FEW (None Seen); Urine Specific Gravity 1.015 (1.001-1.035); Urine WBC 46 /hpf (0 - 3)
[2020-08-09 15:00] VITALS: BP 159/96
== END 2020-08-09 15:27 | disposition home or self-care (01) ==
LOC: ER 00:21
DX: R60.1 Generalized edema (principal); K70.31 Alcoholic cirrhosis of liver with ascites; K80.20 Calculus of gallbladder without cholecystitis without obstruction
CPT/HCPCS: 36415; 49083; 71045; 71250; 74176; 76705; 76942; 80053; 80320; 81001; 82140; 83735; 83880; 84484; 85025; 85379; 85610; 85730; 93005; 99285; C1729; 10022

== ENCOUNTER 2020-08-30 15:25 | Inpatient (IN) | payer MEDICAID ==
[~2020-08-30] VITALS: Ht 165.1 cm; Wt 67.6 kg
[2020-08-30 17:05] LABS: Basophils # (auto) 0 10 ^3/uL (0-0.2); Basophils % (auto) 0.5 % (0.0-2.0); Eosinophils # (auto) 0.2 10 ^3/uL (0-0.8); Eosinophils % (auto) 2.1 % (0.0-7.0); Hematocrit 37.4 % (41.0-53.0); Hemoglobin 13.5 g/dL (13.5-17.5); Lymphocytes # (auto) 2.2 10 ^3/uL (0.4-5.4); Lymphocytes % (auto) 26.2 % (10.0-50.0); Mean Corpuscular Hemoglobin 35.4 pg (28.0-32.0); Mean Corpuscular Volume 98.3 fL (80.0-100.0); Monocytes # (auto) 0.7 10 ^3/uL (0-1.3); Monocytes % (auto) 8.3 % (0.0-12.0); Neutrophils # (auto) 5.3 10 ^3/uL (1.6-8.6); Neutrophils % (auto) 62.9 % (37.0-80.0); Platelet Count (auto) 134 10^3/uL (140-450); Red Blood Cells 3.81 10^6/uL (4.5-5.90); Red Cell Distribution Width 14.5 % (11.8-14.3); White Blood Cell 8.4 10^3/uL (4.4-10.8)
[2020-08-30 17:13] LABS: INR 1.18 (0.9-1.15); Partial Thromboplastin Time 30.1 sec (23.0-31.2)
[2020-08-30 21:40] LABS: Calcium 7.5 mg/dL (8.5-10.1); Potassium 3.5 mmol/L (3.5-5.1)
[2020-08-30 21:51] LABS: Albumin 2.8 g/dL (3.4-5.0); BUN/Creatinine Ratio 6.1; Bilirubin, Total 2.3 mg/dL (0.2-1.0); Total Protein 7.5 g/dL (6.4-8.2)
[2020-08-30] MEDS ORDERED: PROP20TA73 PO (22:06)
[2020-08-30] MEDS ORDERED: LISI-646 PO (22:06)
[2020-08-30] MEDS ORDERED: DOCUSATE SOD 100 MG CAP PO PRN (22:15)
[2020-08-30] MEDS ORDERED: MORPHINE SULF INJ 2 MG/ML SYRINGE 1ML IV PRN (22:15)
[2020-08-30] MEDS ORDERED: TEMAZEPAM 15 MG CAP PO PRN (22:15)
[2020-08-30] MEDS ORDERED: NITROGLYCERIN 0.4 MG SL TAB SL PRN (22:15)
[2020-08-30] MEDS ORDERED: ONDANSETRON HCL 4 MG/2 ML VIAL IV PRN (22:15)
[2020-08-31 01:07] LABS: Amphetamine Screen, Urine NEGATIVE (NEGATIVE); Barbiturate Scree,Urine NEGATIVE (NEGATIVE); Benzodiazephine Screen, Urine NEGATIVE (NEGATIVE); Cannabinoid Screen, Urine NEGATIVE (NEGATIVE); Cocaine Screen, Urine NEGATIVE (NEGATIVE); Opiate Scree,Urine NEGATIVE (NEGATIVE); Phencyclidine Screen, Urine NEGATIVE (NEGATIVE)
--- NOTE | 2020-08-31 05:45 | NUR ---
Telemetry admit from ER JIAN ETIENNE admitted to Telemetry unit after SBAR received. Patient oriented to Chacha Sanders, primary RN, unit, room, bed, and unit policies regarding patient care and visiting hours. Patient now on continuous telemetry monitoring, tele box # 78 and telemetry reading on arrival to unit is . Patient placed on bedside oxygen, weighed by bedscale and encouraged to call if they need something. All questions and concerns addressed, patient verbalized understanding. Note:
[2020-08-31 06:19] VITALS: BP 139/78
--- NOTE | 2020-08-31 07:30 | NUR ---
Opening Shift Note Assumed care of patient, awake and alert. No S/S of distress/SOB or pain. Instructed on POC and to call for assistance PRN bed is locked and in lowest position , bed rails up x2 . Will continue to monitor for changes Q1hr and PRN.
[2020-08-31 07:34] LABS: Eosinophils # (auto) 0.1 10 ^3/uL (0-0.8); Hemoglobin 12.7 g/dL (13.5-17.5); Lymphocytes # (auto) 0.8 10 ^3/uL (0.4-5.4); Monocytes # (auto) 0.5 10 ^3/uL (0-1.3); Nucleated Red Blood Cells % 0.1 %; White Blood Cell 5.8 10^3/uL (4.4-10.8)
[2020-08-31 07:35] LABS: Basophils # (auto) 0.1 10 ^3/uL (0-0.2); Basophils % (auto) 0.9 % (0.0-2.0); Eosinophils % (auto) 1.9 % (0.0-7.0); Hematocrit 36.3 % (41.0-53.0); Lymphocytes % (auto) 14.2 % (10.0-50.0); Mean Corpuscular Hemoglobin 34.5 pg (28.0-32.0); Mean Corpuscular Hgb Conc. 34.9 g/dL (32.0-36.0); Mean Corpuscular Volume 99.1 fL (80.0-100.0); Monocytes % (auto) 9.1 % (0.0-12.0); Neutrophils # (auto) 4.3 10 ^3/uL (1.6-8.6); Neutrophils % (auto) 73.9 % (37.0-80.0); Platelet Count (auto) 96 10^3/uL (140-450); Red Blood Cells 3.67 10^6/uL (4.5-5.90); Red Cell Distribution Width 14.6 % (11.8-14.3)
[2020-08-31 07:59] LABS: Albumin 2.3 g/dL (3.4-5.0); Calcium 7.7 mg/dL (8.5-10.1); Potassium 3.7 mmol/L (3.5-5.1)
[2020-08-31 08:02] LABS: BUN/Creatinine Ratio 6.9; Bilirubin, Total 2.5 mg/dL (0.2-1.0); Total Protein 6.6 g/dL (6.4-8.2)
[2020-08-31 09:00] VITALS: BP 134/92
[2020-08-31] MEDS ORDERED: FAMOTIDINE 20 MG TAB PO SCH (10:00)
[2020-08-31] MEDS ORDERED: MULTIPLE VITAMIN TAB PO SCH (10:00)
[2020-08-31] MEDS ORDERED: PROPRANOLOL HCL 20 MG TAB PO SCH (10:00)
[2020-08-31] MEDS ORDERED: FUROSEMIDE 40 MG TAB PO SCH (10:00)
[2020-08-31] MEDS ORDERED: LISINOPRIL 20 MG TAB PO SCH (10:00)
[2020-08-31] MEDS ORDERED: LACTULOSE 10g/15ml SOLN PO SCH (10:00)
--- NOTE | 2020-08-31 10:30 | NUR ---
Paracentesis done at bedside [id number] was removed
[2020-08-31 13:00] VITALS: BP 132/66
--- NOTE | 2020-08-31 16:18 | NUR ---
AMA Note JIAN ETIENNE states they want to leave the hospital Against Medical Advice (AMA). Patient encouraged to stay for further treatment/stabilization. Patient advised of the risks and benefits of leaving AMA. Patient verbalized understanding. Patient encouraged to return to the ER if symptoms do not improve or worsen.
[2020-09-01] MEDS ORDERED: LACTULOSE 20Gm/30ML SOLN PO SCH (10:00)
== END 2020-08-31 16:15 | disposition left against medical advice (07) | DRG 280 ==
LOC: ER 15:25 → WEST WING 15:26 → TELE 22:47 → TELE-WESTW 08-31 05:27
PROVIDERS: ADMIT Nurse Practitioner; ATTEND Internal Medicine
PROC: 0W9G3ZZ Drainage of Peritoneal Cavity, Percutaneous Approach (ICD-10-PCS; principal; 2020-08-31)
DX: K70.31 Alcoholic cirrhosis of liver with ascites (principal); I10 Essential (primary) hypertension; E66.9 Obesity, unspecified; Z53.29 Procedure and treatment not carried out because of patient's decision for other reasons; F10.10 Alcohol abuse, uncomplicated; Z68.24 Body mass index [BMI] 24.0-24.9, adult; Z82.0 Family history of epilepsy and other diseases of the nervous system; Z91.14 Patient's other noncompliance with medication regimen; Z79.899 Other long term (current) drug therapy
CPT/HCPCS: 10022; 36415; 76700; 76942; 80053; 80307; 83690; 85025; 85610; 85730; G0378

== ENCOUNTER 2020-10-08 18:42 | Emergency (ER) | payer MEDICAID ==
[~2020-10-08] VITALS: Ht 165.1 cm; Wt 68.0 kg
[~2020-10-08 18:42] MED LIST changes: +LISI-646 PO; -PROP10TA57 PO; +PROP20TA73 PO; -SPIR50TA5 PO
[2020-10-08 19:59] LABS: Basophils # (auto) 0 10 ^3/uL (0-0.2); Basophils % (auto) 0.5 % (0.0-2.0); Eosinophils # (auto) 0.1 10 ^3/uL (0-0.8); Eosinophils % (auto) 1.6 % (0.0-7.0); Hematocrit 40.2 % (41.0-53.0); Lymphocytes # (auto) 1.3 10 ^3/uL (0.4-5.4); Lymphocytes % (auto) 21.1 % (10.0-50.0); Mean Corpuscular Hemoglobin 33.8 pg (28.0-32.0); Mean Corpuscular Volume 96.7 fL (80.0-100.0); Monocytes # (auto) 0.4 10 ^3/uL (0-1.3); Monocytes % (auto) 7.2 % (0.0-12.0); Neutrophils # (auto) 4.2 10 ^3/uL (1.6-8.6); Neutrophils % (auto) 69.6 % (37.0-80.0); Nucleated Red Blood Cells % 0.1 %; Platelet Count (auto) 117 10^3/uL (140-450); Red Blood Cells 4.15 10^6/uL (4.5-5.90); Red Cell Distribution Width 13.5 % (11.8-14.3)
[2020-10-08] MEDS ORDERED: SODIUM CHLORIDE 0.9% 3,000 ML IV ONE (20:00)
[2020-10-08 20:14] LABS: Albumin 2.7 g/dL (3.4-5.0); Calcium 7.7 mg/dL (8.5-10.1)
[2020-10-08 20:20] LABS: BUN/Creatinine Ratio 10.7; Bilirubin, Total 2.5 mg/dL (0.2-1.0); Total Protein 7.7 g/dL (6.4-8.2)
[2020-10-08] MEDS ORDERED: CALCIUM GLUC 4.65meq/50ml D5AE 50 ML IV ONE (21:45)
[2020-10-09] MEDS ORDERED: ONDANSETRON ODT 4 MG TAB PO ONE (02:45)
[2020-10-09 08:30] VITALS: BP 153/80
== END 2020-10-09 08:37 | disposition home or self-care (01) ==
LOC: EDBD 18:42 → EDUNIT# 18:42 → ER 18:44
DX: F10.929 Alcohol use, unspecified with intoxication, unspecified (principal); R94.5 Abnormal results of liver function studies; E87.6 Hypokalemia; I10 Essential (primary) hypertension; Z79.899 Other long term (current) drug therapy
CPT/HCPCS: 36415; 70490; 80053; 80320; 85025; 96361; 96365; 99285; J0610; J7030; Q0162

== ENCOUNTER 2020-11-18 15:28 | Emergency (ER) | payer MEDICAID ==
[~2020-11-18] VITALS: Ht 167.6 cm; Wt 72.6 kg
[2020-11-18 17:37] VITALS: BP 138/88
== END 2020-11-18 18:45 | disposition home or self-care (01) ==
LOC: ER 15:28
DX: K70.31 Alcoholic cirrhosis of liver with ascites (principal); K80.20 Calculus of gallbladder without cholecystitis without obstruction; K42.9 Umbilical hernia without obstruction or gangrene; I10 Essential (primary) hypertension
CPT/HCPCS: 74176; 93005

== ENCOUNTER 2020-12-15 19:34 | Inpatient (IN) | payer MEDICAID ==
[~2020-12-15] VITALS: Ht 165.1 cm; Wt 71.2 kg
[~2020-12-15 19:34] MED LIST changes: -LISI-646 PO; +LISI20TA28 PO
[2020-12-15 23:00] LABS: Basophils # (auto) 0 10 ^3/uL (0-0.2); Basophils % (auto) 0.5 % (0.0-2.0); Eosinophils # (auto) 0.2 10 ^3/uL (0-0.8); Eosinophils % (auto) 3.6 % (0.0-7.0); Hematocrit 35.7 % (41.0-53.0); Hemoglobin 12.6 g/dL (13.5-17.5); Lymphocytes # (auto) 1.2 10 ^3/uL (0.4-5.4); Lymphocytes % (auto) 18.7 % (10.0-50.0); Mean Corpuscular Hemoglobin 35.2 pg (28.0-32.0); Mean Corpuscular Hgb Conc. 35.3 g/dL (32.0-36.0); Mean Corpuscular Volume 99.9 fL (80.0-100.0); Monocytes # (auto) 0.6 10 ^3/uL (0-1.3); Monocytes % (auto) 9.9 % (0.0-12.0); Neutrophils # (auto) 4.2 10 ^3/uL (1.6-8.6); Neutrophils % (auto) 67.3 % (37.0-80.0); Red Blood Cells 3.57 10^6/uL (4.5-5.90); Red Cell Distribution Width 15.3 % (11.8-14.3); White Blood Cell 6.2 10^3/uL (4.4-10.8)
[2020-12-15 23:22] LABS: Potassium 3.3 mmol/L (3.5-5.1)
[2020-12-15 23:28] LABS: Albumin 2.6 g/dL (3.4-5.0); BUN/Creatinine Ratio 6.3; Calcium 7.6 mg/dL (8.5-10.1)
[2020-12-15 23:31] LABS: Bilirubin, Total 2.7 mg/dL (0.2-1.0); Total Protein 7.4 g/dL (6.4-8.2)
[2020-12-16 04:18] LABS: Urine Bacteria FEW /hpf (None Seen); Urine Blood 3+ /uL (Negative); Urine Hyaline Cast MOD /lpf (0 - 2); Urine Mucus FEW (None Seen); Urine Specific Gravity 1.012 (1.001-1.035); Urine WBC 1 /hpf (0 - 3)
[2020-12-16 04:20] LABS: Amphetamine Screen, Urine NEGATIVE (NEGATIVE); Barbiturate Scree,Urine NEGATIVE (NEGATIVE); Benzodiazephine Screen, Urine POSITIVE (NEGATIVE); Cannabinoid Screen, Urine NEGATIVE (NEGATIVE); Cocaine Screen, Urine NEGATIVE (NEGATIVE); Opiate Scree,Urine NEGATIVE (NEGATIVE); Phencyclidine Screen, Urine NEGATIVE (NEGATIVE)
[2020-12-16] MEDS ORDERED: MORPHINE SULFATE INJECTION 2 MG/ML SYRG IV PRN (07:30)
[2020-12-16] MEDS ORDERED: ACETAMINOPHEN 325 MG TAB PO PRN (07:30)
[2020-12-16] MEDS ORDERED: POTASSIUM CHL 20MEQ/100ML 100 ML IV ONE (07:30)
[2020-12-16] MEDS ORDERED: ONDANSETRON HCL 4 MG/2 ML VIAL IV PRN (07:30)
[2020-12-16] MEDS ORDERED: HYDROcodone-ACET 5/325MG TAB PO PRN (07:30)
[2020-12-16] MEDS ORDERED: hydrALAZINE HCL 20 MG/ML VL IV PRN (07:30)
[2020-12-16] MEDS ORDERED: ALBUMIN 5% 250 ML IV ONE (07:30)
[2020-12-16] MEDS ORDERED: NITROGLYCERIN 0.4 MG SL TAB SL PRN (07:30)
[2020-12-16 08:14] LABS: Basophils # (auto) 0 10 ^3/uL (0-0.2); Lymphocytes # (auto) 0.9 10 ^3/uL (0.4-5.4); Mean Corpuscular Hemoglobin 35.4 pg (28.0-32.0); Neutrophils # (auto) 3.7 10 ^3/uL (1.6-8.6); White Blood Cell 5.3 10^3/uL (4.4-10.8)
[2020-12-16 08:15] LABS: Albumin 2.5 g/dL (3.4-5.0); Calcium 7.3 mg/dL (8.5-10.1); Potassium 3.5 mmol/L (3.5-5.1)
[2020-12-16 08:17] LABS: Basophils % (auto) 0.5 % (0.0-2.0); Eosinophils # (auto) 0.1 10 ^3/uL (0-0.8); Eosinophils % (auto) 2.7 % (0.0-7.0); Hemoglobin 12.1 g/dL (13.5-17.5); Lymphocytes % (auto) 17.7 % (10.0-50.0); Mean Corpuscular Hgb Conc. 35.6 g/dL (32.0-36.0); Mean Corpuscular Volume 99.4 fL (80.0-100.0); Monocytes # (auto) 0.6 10 ^3/uL (0-1.3); Monocytes % (auto) 10.5 % (0.0-12.0); Neutrophils % (auto) 68.6 % (37.0-80.0); Red Blood Cells 3.42 10^6/uL (4.5-5.90); Red Cell Distribution Width 15.3 % (11.8-14.3)
[2020-12-16 08:19] LABS: BUN/Creatinine Ratio 9.9; Total Protein 7.1 g/dL (6.4-8.2)
[2020-12-16] MEDS: FAMOTIDINE (10MG/ML) 2ML VL IV SCH ×2 (09:01→21:39)
[2020-12-16] MEDS: THIAMINE HCL 100 MG TAB PO SCH (09:03)
[2020-12-16] MEDS: FOLIC ACID 1 MG TAB PO SCH (09:03)
[2020-12-16] MEDS: MULTIPLE VITAMIN TAB PO SCH (09:03)
[2020-12-16] MEDS: LISINOPRIL 20 MG TAB PO SCH ×2 (09:05→21:41)
[2020-12-16 09:45] LABS: INR 1.23 (0.9-1.15); Partial Thromboplastin Time 29.1 sec (23.0-31.2)
[2020-12-16] MEDS ORDERED: amLODIPine BESYLATE 5 MG TAB PO SCH (10:00)
[2020-12-16] MEDS: SODIUM CHLOR 0.9% PF (SALINE LOCK) 10ML VIAL/SYR IV SCH ×2 (13:57→21:16)
[2020-12-16] MEDS: SPIRONOLACTONE 25 MG TAB PO SCH (18:06)
[2020-12-16] MEDS: PROPRANOLOL HCL 20 MG TAB PO SCH (21:41)
[2020-12-16 23:50] VITALS: BP 139/78
[2020-12-17 01:54] LABS: Basophils # (auto) 0 10 ^3/uL (0-0.2); Basophils % (auto) 0.3 % (0.0-2.0); Hemoglobin 11.1 g/dL (13.5-17.5); Monocytes # (auto) 0.5 10 ^3/uL (0-1.3)
[2020-12-17 01:56] LABS: Eosinophils # (auto) 0.3 10 ^3/uL (0-0.8); Eosinophils % (auto) 5.9 % (0.0-7.0); Hematocrit 31.2 % (41.0-53.0); Lymphocytes % (auto) 21.7 % (10.0-50.0); Mean Corpuscular Hemoglobin 35.7 pg (28.0-32.0); Mean Corpuscular Hgb Conc. 35.7 g/dL (32.0-36.0); Monocytes % (auto) 10.7 % (0.0-12.0); Neutrophils # (auto) 2.8 10 ^3/uL (1.6-8.6); Neutrophils % (auto) 61.4 % (37.0-80.0); Nucleated Red Blood Cells % 0.1 %; Red Blood Cells 3.12 10^6/uL (4.5-5.90); Red Cell Distribution Width 15.2 % (11.8-14.3); White Blood Cell 4.6 10^3/uL (4.4-10.8)
[2020-12-17 02:05] LABS: BUN/Creatinine Ratio 13.8; Calcium 7.4 mg/dL (8.5-10.1); Potassium 3.5 mmol/L (3.5-5.1)
[2020-12-17 02:08] LABS: Bilirubin, Total 2.9 mg/dL (0.2-1.0); Total Protein 5.6 g/dL (6.4-8.2)
[2020-12-17 04:30] VITALS: BP 127/75
[2020-12-17] MEDS: SPIRONOLACTONE 25 MG TAB PO SCH (05:25)
[2020-12-17] MEDS: SODIUM CHLOR 0.9% PF (SALINE LOCK) 10ML VIAL/SYR IV SCH (05:25)
[2020-12-17 07:21] LABS: Basophils # (auto) 0 10 ^3/uL (0-0.2); Eosinophils # (auto) 0.3 10 ^3/uL (0-0.8); Hemoglobin 11.3 g/dL (13.5-17.5); Lymphocytes # (auto) 1.1 10 ^3/uL (0.4-5.4); Mean Corpuscular Volume 99.6 fL (80.0-100.0); Neutrophils # (auto) 2.6 10 ^3/uL (1.6-8.6); White Blood Cell 4.4 10^3/uL (4.4-10.8)
[2020-12-17 07:24] LABS: Basophils % (auto) 0.3 % (0.0-2.0); Eosinophils % (auto) 6.6 % (0.0-7.0); Hematocrit 31.7 % (41.0-53.0); Lymphocytes % (auto) 24.1 % (10.0-50.0); Mean Corpuscular Hemoglobin 35.4 pg (28.0-32.0); Mean Corpuscular Hgb Conc. 35.5 g/dL (32.0-36.0); Monocytes # (auto) 0.5 10 ^3/uL (0-1.3); Monocytes % (auto) 10.6 % (0.0-12.0); Neutrophils % (auto) 58.4 % (37.0-80.0); Nucleated Red Blood Cells % 0.1 %; Red Blood Cells 3.18 10^6/uL (4.5-5.90); Red Cell Distribution Width 14.9 % (11.8-14.3)
[2020-12-17 08:39] LABS: Calcium 7.1 mg/dL (8.5-10.1); Magnesium 1.4 mg/dL (1.6-2.6); Potassium 3.4 mmol/L (3.5-5.1)
[2020-12-17 08:43] VITALS: BP 122/78
[2020-12-17 08:45] LABS: BUN/Creatinine Ratio 13.7; Bilirubin, Total 3.4 mg/dL (0.2-1.0); Total Protein 5.8 g/dL (6.4-8.2)
[2020-12-17] MEDS: FAMOTIDINE (10MG/ML) 2ML VL IV SCH (09:39)
[2020-12-17] MEDS: MULTIPLE VITAMIN TAB PO SCH (09:40)
[2020-12-17] MEDS: PROPRANOLOL HCL 20 MG TAB PO SCH (09:40)
[2020-12-17] MEDS: LISINOPRIL 20 MG TAB PO SCH (09:41)
[2020-12-17] MEDS: FOLIC ACID 1 MG TAB PO SCH (09:41)
[2020-12-17] MEDS: THIAMINE HCL 100 MG TAB PO SCH (09:45)
[2020-12-17] MEDS ORDERED: POTASSIUM CHLORIDE 20 MEQ, LIDOCAINE 1% (LOCAL ANESTH.) 2 ML in SODIUM CHL 0.9% 100 ML IV ONE (10:00)
[2020-12-17] MEDS: MAGNESIUM SULFATE 1GM/100ML 100 ML IV SCH ×2 (10:31→11:47)
[2020-12-17 13:00] VITALS: BP 117/77
[2020-12-17 15:11] VITALS: BP 117/77
== END 2020-12-17 17:05 | disposition home or self-care (01) | DRG 280 ==
LOC: ER 19:34 → TELE 19:35 → MERGE 19:35 → TELE-WESTW 12-16 23:15
PROVIDERS: ADMIT Nurse Practitioner Family; ATTEND Internal Medicine
PROC: 0W9G3ZZ Drainage of Peritoneal Cavity, Percutaneous Approach (ICD-10-PCS; principal; 2020-12-16)
DX: K70.31 Alcoholic cirrhosis of liver with ascites (principal); E43 Unspecified severe protein-calorie malnutrition; D69.6 Thrombocytopenia, unspecified; D64.9 Anemia, unspecified; E83.42 Hypomagnesemia; Z20.822 Contact with and (suspected) exposure to COVID-19; E87.6 Hypokalemia; F10.229 Alcohol dependence with intoxication, unspecified; I10 Essential (primary) hypertension; K75.9 Inflammatory liver disease, unspecified; Y90.3 Blood alcohol level of 60-79 mg/100 ml; E88.09 Other disorders of plasma-protein metabolism, not elsewhere classified; Z91.19 Patient's noncompliance with other medical treatment and regimen; Z79.899 Other long term (current) drug therapy; Z79.891 Long term (current) use of opiate analgesic; Z79.01 Long term (current) use of anticoagulants
CPT/HCPCS: 10022; 36415; 71045; 76700; 76942; 80053; 80307; 80320; 81001; 82140; 82150; 83690; 83735; 85025; 85610; 85730; 96365; 96375; G0378; J2001; J2405; J3490

== ENCOUNTER 2022-05-01 13:43 | Emergency (ER) | payer MEDICAID ==
[~2022-05-01] VITALS: Ht 167.6 cm; Wt 81.6 kg
[2022-05-01 13:45] VITALS: BP 163/88
[2022-05-01] MEDS ORDERED: THIAMINE 100mg/ml INJ (200mg/2ml VIAL) IV ONE (14:00)
[2022-05-01] MEDS ORDERED: SODIUM CHLORIDE 0.9% 1,000 ML IVB ONE (14:00)
[2022-05-01 14:36] LABS: Basophils # (auto) 0 10 ^3/uL (0-0.2); Eosinophils # (auto) 0.1 10 ^3/uL (0-0.8); Hematocrit 42.1 % (41.0-53.0); Hemoglobin 14.3 g/dL (13.5-17.5); Monocytes # (auto) 0.3 10 ^3/uL (0-1.3); White Blood Cell 3.6 10^3/uL (4.4-10.8)
[2022-05-01 14:37] LABS: Basophils % (auto) 0.4 % (0.0-2.0); Eosinophils % (auto) 1.4 % (0.0-7.0); Lymphocytes # (auto) 0.5 10 ^3/uL (0.4-5.4); Lymphocytes % (auto) 15.2 % (10.0-50.0); Mean Corpuscular Hemoglobin 32.2 pg (28.0-32.0); Mean Corpuscular Volume 94.7 fL (80.0-100.0); Monocytes % (auto) 8.9 % (0.0-12.0); Neutrophils # (auto) 2.7 10 ^3/uL (1.6-8.6); Neutrophils % (auto) 74.1 % (37.0-80.0); Red Blood Cells 4.45 10^6/uL (4.5-5.90); Red Cell Distribution Width 13.8 % (11.8-14.3)
[2022-05-01 14:57] LABS: Albumin 3.2 g/dL (3.4-5.0); Calcium 7.8 mg/dL (8.5-10.1); Potassium 3.3 mmol/L (3.5-5.1)
[2022-05-01 14:59] LABS: BUN/Creatinine Ratio 8.1
[2022-05-01] MEDS ORDERED: ACETAMINOPHEN 325 MG TAB PO ONE ×2 (15:00→15:01)
[2022-05-01 15:01] LABS: Bilirubin, Total 3.1 mg/dL (0.2-1.0); Total Protein 7.5 g/dL (6.4-8.2)
== END 2022-05-01 17:11 | disposition home or self-care (01) ==
LOC: EDBD 13:43 → ER 13:43
DX: K70.30 Alcoholic cirrhosis of liver without ascites (principal); F10.20 Alcohol dependence, uncomplicated; I10 Essential (primary) hypertension; Z98.890 Other specified postprocedural states
CPT/HCPCS: 36415; 71045; 80053; 80320; 85025; 96361; 96374; 99284; J3411; J7030

== ENCOUNTER 2022-07-02 06:01 | Emergency (ER) | payer MEDICAID ==
[~2022-07-02] VITALS: Ht 165.1 cm; Wt 90.5 kg
[2022-07-02] MEDS ORDERED: SODIUM CHLORIDE 0.9% 1,000 ML IV ONE (06:30)
[2022-07-02 07:15] VITALS: BP 172/95
[2022-07-02 07:17] LABS: Basophils # (auto) 0 10 ^3/uL (0-0.2); Basophils % (auto) 0.5 % (0.0-2.0); Eosinophils # (auto) 0 10 ^3/uL (0-0.8); Eosinophils % (auto) 0.8 % (0.0-7.0); Hematocrit 42.3 % (41.0-53.0); Hemoglobin 14.6 g/dL (13.5-17.5); Lymphocytes # (auto) 0.8 10 ^3/uL (0.4-5.4); Lymphocytes % (auto) 16.9 % (10.0-50.0); Mean Corpuscular Hemoglobin 33.1 pg (28.0-32.0); Mean Corpuscular Hgb Conc. 34.4 g/dL (32.0-36.0); Mean Corpuscular Volume 96.2 fL (80.0-100.0); Monocytes # (auto) 0.3 10 ^3/uL (0-1.3); Monocytes % (auto) 7.3 % (0.0-12.0); Neutrophils # (auto) 3.5 10 ^3/uL (1.6-8.6); Neutrophils % (auto) 74.5 % (37.0-80.0); Nucleated Red Blood Cells % 0.1 %; Red Cell Distribution Width 13.7 % (11.8-14.3); White Blood Cell 4.7 10^3/uL (4.4-10.8)
[2022-07-02 07:47] LABS: Albumin 3.3 g/dL (3.4-5.0); Calcium 8.1 mg/dL (8.5-10.1); Potassium 3.6 mmol/L (3.5-5.1)
[2022-07-02 07:51] LABS: Bilirubin, Total 3.1 mg/dL (0.2-1.0); Total Protein 7.4 g/dL (6.4-8.2)
[2022-07-02 08:02] LABS: Urine Bacteria FEW /hpf (None Seen); Urine Blood 1+ /uL (Negative); Urine Specific Gravity 1.017 (1.001-1.035); Urine WBC <1 /hpf (0 - 3)
[2022-07-02 08:09] LABS: Amphetamine Screen, Urine NEGATIVE (NEGATIVE); Barbiturate Scree,Urine NEGATIVE (NEGATIVE); Benzodiazephine Screen, Urine NEGATIVE (NEGATIVE); Cannabinoid Screen, Urine NEGATIVE (NEGATIVE); Cocaine Screen, Urine NEGATIVE (NEGATIVE); Opiate Scree,Urine NEGATIVE (NEGATIVE); Phencyclidine Screen, Urine NEGATIVE (NEGATIVE)
[2022-07-02] MEDS ORDERED: LOSA25TA38 PO (08:23)
== END 2022-07-02 09:30 | disposition home or self-care (01) ==
LOC: EDUNIT# 06:01 → ER 06:01 → EDBD 06:01 → ER 09:29
DX: I16.0 Hypertensive urgency (principal); F10.129 Alcohol abuse with intoxication, unspecified
CPT/HCPCS: 36415; 70450; 80053; 80307; 80320; 81001; 85025; 93005; 96360; 99285; J7030

== ENCOUNTER 2022-07-02 17:30 | Emergency (ER) | payer MEDICAID ==
[~2022-07-02] VITALS: Ht 167.6 cm; Wt 85.0 kg
[~2022-07-02 17:30] MED LIST changes: +LOSA25TA38 PO
[2022-07-02] MEDS ORDERED: cloNIDine HCL 0.1 MG TAB ONE (18:39)
[2022-07-02] MEDS ORDERED: cloNIDine HCL 0.1 MG TAB PO ONE (18:45)
[2022-07-02] MEDS ORDERED: amLODIPine BESYLATE 5 MG TAB PO ONE (23:00)
[2022-07-03 00:30] VITALS: BP 175/98
== END 2022-07-03 02:30 | disposition home or self-care (01) ==
LOC: ER 17:30
DX: I16.0 Hypertensive urgency (principal); K74.60 Unspecified cirrhosis of liver; I10 Essential (primary) hypertension
CPT/HCPCS: 36415; 74176; 84484; 93005

== ENCOUNTER 2022-08-13 16:39 | Emergency (ER) | payer MEDICAID ==
[~2022-08-13] VITALS: Ht 165.1 cm; Wt 79.5 kg
[2022-08-13] MEDS ORDERED: ACETAMINOPHEN 325 MG TAB PO ONE (17:45)
[2022-08-13 19:29] LABS: Basophils # (auto) 0 10 ^3/uL (0-0.2); Eosinophils # (auto) 0 10 ^3/uL (0-0.8); Lymphocytes # (auto) 0.5 10 ^3/uL (0.4-5.4); Mean Corpuscular Hemoglobin 33.5 pg (28.0-32.0); Monocytes # (auto) 0.5 10 ^3/uL (0-1.3); Neutrophils # (auto) 3.4 10 ^3/uL (1.6-8.6); Red Blood Cells 4.25 10^6/uL (4.5-5.90)
[2022-08-13 19:32] LABS: Basophils % (auto) 0.5 % (0.0-2.0); Eosinophils % (auto) 0.9 % (0.0-7.0); Hematocrit 40.9 % (41.0-53.0); Hemoglobin 14.2 g/dL (13.5-17.5); Lymphocytes % (auto) 11.1 % (10.0-50.0); Mean Corpuscular Hgb Conc. 34.8 g/dL (32.0-36.0); Mean Corpuscular Volume 96.2 fL (80.0-100.0); Monocytes % (auto) 11.4 % (0.0-12.0); Neutrophils % (auto) 76.1 % (37.0-80.0); Nucleated Red Blood Cells % 0.2 %; White Blood Cell 4.5 10^3/uL (4.4-10.8)
[2022-08-13 19:48] LABS: Albumin 3.7 g/dL (3.4-5.0); BUN/Creatinine Ratio 5.6; Calcium 8.2 mg/dL (8.5-10.1); Potassium 3.9 mmol/L (3.5-5.1)
[2022-08-13 19:50] LABS: Bilirubin, Total 3.2 mg/dL (0.2-1.0); Total Protein 8.2 g/dL (6.4-8.2)
[2022-08-13] MEDS: SODIUM CHLORIDE 0.9% 1,000 ML IV ONE ×2 (21:54→22:10)
[2022-08-13 23:41] VITALS: BP 184/99
== END 2022-08-13 23:40 | disposition home or self-care (01) ==
LOC: ER 16:48
DX: F10.239 Alcohol dependence with withdrawal, unspecified (principal); R51.9 Headache, unspecified; I10 Essential (primary) hypertension; Z79.899 Other long term (current) drug therapy; Y90.9 Presence of alcohol in blood, level not specified
CPT/HCPCS: 36415; 70450; 80053; 82140; 85025; 93005; 96360; 99285; J7030

== ENCOUNTER 2022-09-30 21:25 | Emergency (ER) | payer MEDICAID ==
[~2022-09-30] VITALS: Ht 165.1 cm; Wt 81.4 kg
[2022-09-30 23:43] LABS: Urine Bacteria NONE SEEN /hpf (None Seen); Urine Blood 2+ /uL (Negative); Urine Specific Gravity 1.018 (1.001-1.035); Urine WBC <1 /hpf (0 - 3)
[2022-09-30] MEDS ORDERED: cloNIDine HCL 0.1 MG TAB PO ONE (23:45)
[2022-09-30 23:57] LABS: Amphetamine Screen, Urine NEGATIVE (NEGATIVE); Barbiturate Scree,Urine NEGATIVE (NEGATIVE); Benzodiazephine Screen, Urine NEGATIVE (NEGATIVE); Cannabinoid Screen, Urine NEGATIVE (NEGATIVE); Cocaine Screen, Urine NEGATIVE (NEGATIVE); Opiate Scree,Urine NEGATIVE (NEGATIVE); Phencyclidine Screen, Urine NEGATIVE (NEGATIVE)
[2022-10-01 00:26] LABS: Alanine Aminotransferase 43 U/L (16-61); Albumin 3.2 g/dL (3.4-5.0); Amylase 92 U/L (25-115); Anion Gap 8 (5-15); Aspartate Aminotransferase 48 U/L (15-37); BUN/Creatinine Ratio 8.9; Blood Urea Nitrogen 7 mg/dL (7-18); Calcium 8.6 mg/dL (8.5-10.1); Carbon Dioxide 23 mmol/L (21-32); Chloride 109 mmol/L (98-107); GFR African American 133 mL/min; GFR Non-African American 110 mL/min; Glucose 102 mg/dL (74-106); Lipase 214 U/L (73-393); Potassium 4.3 mmol/L (3.5-5.1); Sodium 140 mmol/L (136-145)
[2022-10-01 00:29] LABS: Alkaline Phosphatase 103 U/L (45-117); Bilirubin, Total 1.4 mg/dL (0.2-1.0)
[2022-10-01 02:09] LABS: Basophils # (auto) 0 10 ^3/uL (0-0.2); Basophils % (auto) 0.5 % (0.0-2.0); Eosinophils # (auto) 0.3 10 ^3/uL (0-0.8); Eosinophils % (auto) 4.5 % (0.0-7.0); Hematocrit 45.3 % (41.0-53.0); Hemoglobin 15.4 g/dL (13.5-17.5); Lymphocytes # (auto) 1.3 10 ^3/uL (0.4-5.4); Lymphocytes % (auto) 23.5 % (10.0-50.0); Mean Corpuscular Hemoglobin 33.5 pg (28.0-32.0); Mean Corpuscular Hgb Conc. 33.9 g/dL (32.0-36.0); Mean Corpuscular Volume 98.7 fL (80.0-100.0); Monocytes # (auto) 0.8 10 ^3/uL (0-1.3); Monocytes % (auto) 14.4 % (0.0-12.0); Neutrophils # (auto) 3.3 10 ^3/uL (1.6-8.6); Neutrophils % (auto) 57.1 % (37.0-80.0); Nucleated Red Blood Cells % 0.1 %; Red Blood Cells 4.59 10^6/uL (4.5-5.90); Red Cell Distribution Width 14.1 % (11.8-14.3); White Blood Cell 5.7 10^3/uL (4.4-10.8)
[2022-10-01 05:09] VITALS: BP 165/86
== END 2022-10-01 05:17 | disposition home or self-care (01) ==
LOC: ER 21:26
DX: K42.9 Umbilical hernia without obstruction or gangrene (principal); K70.31 Alcoholic cirrhosis of liver with ascites; I10 Essential (primary) hypertension; Z79.899 Other long term (current) drug therapy
CPT/HCPCS: 36415; 74176; 80053; 80307; 80320; 81001; 82140; 82150; 83690; 85025

== ENCOUNTER 2022-10-15 00:11 | Emergency (ER) | payer MEDICAID ==
[~2022-10-15] VITALS: Ht 165.1 cm; Wt 98.8 kg
[2022-10-15 00:57] LABS: Basophils # (auto) 0.1 10 ^3/uL (0-0.2); Basophils % (auto) 1.4 % (0.0-2.0); Eosinophils # (auto) 0.2 10 ^3/uL (0-0.8); Eosinophils % (auto) 3.5 % (0.0-7.0); Hematocrit 44.3 % (41.0-53.0); Hemoglobin 15.2 g/dL (13.5-17.5); Lymphocytes # (auto) 2.5 10 ^3/uL (0.4-5.4); Mean Corpuscular Hemoglobin 33.5 pg (28.0-32.0); Mean Corpuscular Hgb Conc. 34.3 g/dL (32.0-36.0); Mean Corpuscular Volume 97.7 fL (80.0-100.0); Monocytes # (auto) 0.4 10 ^3/uL (0-1.3); Monocytes % (auto) 6.9 % (0.0-12.0); Neutrophils # (auto) 3.1 10 ^3/uL (1.6-8.6); Neutrophils % (auto) 49.2 % (37.0-80.0); Nucleated Red Blood Cells % 0.1 %; Red Blood Cells 4.53 10^6/uL (4.5-5.90); Red Cell Distribution Width 13.8 % (11.8-14.3); White Blood Cell 6.3 10^3/uL (4.4-10.8)
[2022-10-15 01:05] LABS: Albumin 3.4 g/dL (3.4-5.0); Calcium 8.4 mg/dL (8.5-10.1); Potassium 3.7 mmol/L (3.5-5.1)
[2022-10-15 01:07] LABS: BUN/Creatinine Ratio 7.4
[2022-10-15 01:09] LABS: Bilirubin, Total 2.4 mg/dL (0.2-1.0)
[2022-10-15 02:37] LABS: Urine Blood 2+ /uL (Negative); Urine Specific Gravity 1.009 (1.001-1.035); Urine WBC <1 /hpf (0 - 3)
[2022-10-15] MEDS ORDERED: LORazepam 2MG/ML-1ML VIAL IM ONE (06:00)
[2022-10-15] MEDS ORDERED: MORPHINE SULFATE INJ 2 MG/ml SYRG IM ONE (06:00)
[2022-10-15] MEDS ORDERED: SODIUM CHLORIDE 0.9% 1,000 ML IV ONE (06:00)
[2022-10-15 06:39] VITALS: BP 158/84
== END 2022-10-15 06:58 | disposition home or self-care (01) ==
LOC: ER 00:11
DX: K74.60 Unspecified cirrhosis of liver (principal); F10.10 Alcohol abuse, uncomplicated; I10 Essential (primary) hypertension
CPT/HCPCS: 36415; 80053; 81001; 82150; 83690; 84484; 85025; 93005; 96360; 96372; 99285; J2060; J2270; J7030

== ENCOUNTER 2023-01-31 17:27 | Inpatient (IN) | payer MEDICAID ==
[~2023-01-31] VITALS: Ht 165.1 cm; Wt 85.0 kg
[2023-01-31] MEDS ORDERED: SODIUM CHLORIDE 0.9% 1,000 ML IV ONE (18:15)
[2023-01-31] MEDS ORDERED: THIAMINE HCL 100 MG TAB PO ONE (18:15)
[2023-01-31 18:42] LABS: Basophils # (auto) 0 10 ^3/uL (0-0.2); Eosinophils # (auto) 0 10 ^3/uL (0-0.8); Hemoglobin 14.4 g/dL (13.5-17.5); Lymphocytes # (auto) 0.5 10 ^3/uL (0.4-5.4); Mean Corpuscular Hemoglobin 33.9 pg (28.0-32.0); Monocytes # (auto) 0.5 10 ^3/uL (0-1.3); Neutrophils # (auto) 3.7 10 ^3/uL (1.6-8.6); White Blood Cell 4.8 10^3/uL (4.4-10.8)
[2023-01-31 18:44] LABS: Basophils % (auto) 0.2 % (0.0-2.0); Hematocrit 40.7 % (41.0-53.0); Lymphocytes % (auto) 9.8 % (10.0-50.0); Mean Corpuscular Hgb Conc. 35.4 g/dL (32.0-36.0); Mean Corpuscular Volume 95.9 fL (80.0-100.0); Nucleated Red Blood Cells % 0.2 %; Red Blood Cells 4.25 10^6/uL (4.5-5.90); Red Cell Distribution Width 14.1 % (11.8-14.3)
[2023-01-31 19:01] LABS: Albumin 3.4 g/dL (3.4-5.0); Anion Gap 9 (5-15); Blood Urea Nitrogen 6 mg/dL (7-18); Calcium 8.3 mg/dL (8.5-10.1); Carbon Dioxide 21 mmol/L (21-32); Chloride 103 mmol/L (98-107); Glucose 130 mg/dL (74-106); Magnesium 1.5 mg/dL (1.6-2.6); Potassium 3.5 mmol/L (3.5-5.1); Sodium 133 mmol/L (136-145)
[2023-01-31 19:06] LABS: Alanine Aminotransferase 101 U/L (16-61); Alkaline Phosphatase 124 U/L (45-117); Aspartate Aminotransferase 168 U/L (15-37); BUN/Creatinine Ratio 8.6 (10.0-20.0); Blood Alcohol < 3.0 mg/dL (0-5); GFR African American 153 mL/min; GFR Non-African American 126 mL/min; Total Protein 7.8 g/dL (6.4-8.2)
[2023-01-31] MEDS ORDERED: MAGNESIUM SULFATE 1GM/100ML 100 ML IV ONE (19:30)
[2023-01-31] MEDS ORDERED: LORazepam 2MG/ML-1ML VIAL IV ONE (19:45)
[2023-01-31] MEDS ORDERED: chlordiazePOXIDE HCL 25 MG CAP PO ONE (20:45)
[2023-01-31 21:43] LABS: Amphetamine Screen, Urine NEGATIVE (NEGATIVE); Barbiturate Scree,Urine NEGATIVE (NEGATIVE); Benzodiazephine Screen, Urine NEGATIVE (NEGATIVE); Cannabinoid Screen, Urine NEGATIVE (NEGATIVE); Cocaine Screen, Urine NEGATIVE (NEGATIVE); Opiate Scree,Urine NEGATIVE (NEGATIVE); Phencyclidine Screen, Urine NEGATIVE (NEGATIVE)
[2023-01-31 22:11] LABS: Urine Bacteria NONE SEEN /hpf (None Seen); Urine Blood 2+ /uL (Negative); Urine Hyaline Cast FEW /lpf (0 - 2); Urine Mucus FEW (None Seen); Urine Specific Gravity 1.021 (1.001-1.035); Urine WBC 2 /hpf (0 - 3)
[2023-02-01] MEDS ORDERED: DOCUSATE SOD 100 MG CAP PO PRN (08:00)
[2023-02-01] MEDS ORDERED: ONDANSETRON HCL 4 MG/2 ML VIAL IV PRN (08:00)
[2023-02-01] MEDS ORDERED: NITROGLYCERIN 0.4 MG SL TAB SL PRN (08:00)
[2023-02-01] MEDS ORDERED: MORPHINE SULFATE INJ 2 MG/ml SYRG IV PRN (08:00)
[2023-02-01] MEDS: chlordiazePOXIDE HCL 25 MG CAP PO SCH ×2 (08:21→16:13)
[2023-02-01] MEDS: SODIUM CHLORIDE 0.9% 1,000 ML IV SCH ×2 (08:23→16:20)
[2023-02-01] MEDS: FOLIC ACID 1 MG, MULTIPLE VITAMIN 10 ML, MAGNESIUM SULF SDV 50% 8 MEQ, THIAMINE INJ 100... INJ SCH ×5 (13:05)
[2023-02-01 21:30] VITALS: BP 145/85
[2023-02-01 22:00] VITALS: BP 145/85
[2023-02-01] MEDS: PROPRANOLOL HCL 20 MG TAB PO SCH (22:36)
[2023-02-02] VITALS (7 sets, daily range): BP systolic 115–132; BP diastolic 71–84
[2023-02-02] MEDS ORDERED: chlordiazePOXIDE HCL 25 MG CAP PO SCH ×2 (00:15→10:00)
[2023-02-02] MEDS: chlordiazePOXIDE HCL 25 MG CAP PO SCH (00:20)
[2023-02-02] MEDS: SODIUM CHLORIDE 0.9% 1,000 ML IV SCH ×3 (04:43→17:20)
[2023-02-02 07:35] LABS: Potassium 3.5 mmol/L (3.5-5.1)
[2023-02-02 07:59] LABS: Albumin 2.7 g/dL (3.4-5.0); BUN/Creatinine Ratio 9.5 (10.0-20.0); Bilirubin, Total 4.9 mg/dL (0.2-1.0); Total Protein 6.7 g/dL (6.4-8.2)
[2023-02-02 08:52] LABS: Eosinophils # (auto) 0.2 10 ^3/uL (0-0.8); Lymphocytes # (auto) 0.8 10 ^3/uL (0.4-5.4); Monocytes # (auto) 0.6 10 ^3/uL (0-1.3); Neutrophils # (auto) 3.1 10 ^3/uL (1.6-8.6)
[2023-02-02 08:54] LABS: Basophils # (auto) 0.1 10 ^3/uL (0-0.2); Basophils % (auto) 1.2 % (0.0-2.0); Hematocrit 39.1 % (41.0-53.0); Hemoglobin 13.8 g/dL (13.5-17.5); Lymphocytes % (auto) 16.5 % (10.0-50.0); Mean Corpuscular Hemoglobin 34.5 pg (28.0-32.0); Mean Corpuscular Hgb Conc. 35.2 g/dL (32.0-36.0); Mean Corpuscular Volume 98.1 fL (80.0-100.0); Monocytes % (auto) 13.3 % (0.0-12.0); Red Blood Cells 3.99 10^6/uL (4.5-5.90); Red Cell Distribution Width 15.1 % (11.8-14.3); White Blood Cell 4.8 10^3/uL (4.4-10.8)
[2023-02-02] MEDS: PROPRANOLOL HCL 20 MG TAB PO SCH (09:18)
[2023-02-02] MEDS ORDERED: LACTULOSE 20Gm/30ML SOLN PO SCH (10:00)
[2023-02-02] MEDS ORDERED: LISINOPRIL 20 MG TAB PO SCH (10:00)
[2023-02-02] MEDS ORDERED: PANTOPRAZOLE 40 MG TAB PO SCH (10:00)
[2023-02-02] MEDS ORDERED: CHL25C PO (12:42)
[2023-02-02] MEDS: FOLIC ACID 1 MG, MULTIPLE VITAMIN 10 ML, MAGNESIUM SULF SDV 50% 8 MEQ, THIAMINE INJ 100... INJ SCH ×5 (12:50)
[2023-02-03] MEDS ORDERED: chlordiazePOXIDE HCL 25 MG CAP PO SCH (10:00)
[2023-02-04] MEDS ORDERED: chlordiazePOXIDE HCL 25 MG CAP PO SCH (07:00)
== END 2023-02-02 18:15 | disposition home health service (06) | DRG 775 ==
LOC: ER 17:27 → TELE 02-01 08:00 → TELE-WESTW 02-01 21:06
PROVIDERS: ADMIT Nurse Practitioner; ATTEND Nurse Practitioner
DX: F10.139 Alcohol abuse with withdrawal, unspecified (principal); F10.129 Alcohol abuse with intoxication, unspecified; D69.6 Thrombocytopenia, unspecified; K74.60 Unspecified cirrhosis of liver; E83.42 Hypomagnesemia; F41.9 Anxiety disorder, unspecified; F32.A Depression, unspecified; R79.89 Other specified abnormal findings of blood chemistry; Z20.822 Contact with and (suspected) exposure to COVID-19; I10 Essential (primary) hypertension; Z82.0 Family history of epilepsy and other diseases of the nervous system; Z82.49 Family history of ischemic heart disease and other diseases of the circulatory system
CPT/HCPCS: 36415; 70450; 71045; 80053; 80307; 80320; 81001; 82140; 83605; 83690; 83735; 84484; 85025; 87426; 96361; 96365; 96366; 96367; 96375; 99291; G0378

== ENCOUNTER 2023-05-28 08:00 | Inpatient (IN) | payer MEDICAID ==
[~2023-05-28] VITALS: Ht 165.1 cm; Wt 84.6 kg
[~2023-05-28 08:00] MED LIST changes: +CHL25C PO; -LISI20TA28 PO; +LISI20TA56 PO; -LOSA25TA38 PO; -MULTTAB99 PO; +PROP1TAB53 PO; -PROP20TA73 PO
[2023-05-28 09:22] LABS: Basophils # (auto) 0 10 ^3/uL (0-0.2); Eosinophils # (auto) 0.1 10 ^3/uL (0-0.8); Hemoglobin 15.3 g/dL (13.5-17.5); Monocytes # (auto) 0.4 10 ^3/uL (0-1.3); Neutrophils # (auto) 2.5 10 ^3/uL (1.6-8.6); White Blood Cell 3.7 10^3/uL (4.4-10.8)
[2023-05-28 09:25] LABS: Basophils % (auto) 1.1 % (0.0-2.0); Eosinophils % (auto) 3.7 % (0.0-7.0); Hematocrit 44.5 % (41.0-53.0); Lymphocytes # (auto) 0.6 10 ^3/uL (0.4-5.4); Lymphocytes % (auto) 15.9 % (10.0-50.0); Mean Corpuscular Hgb Conc. 34.3 g/dL (32.0-36.0); Monocytes % (auto) 11.8 % (0.0-12.0); Neutrophils % (auto) 67.5 % (37.0-80.0); Nucleated Red Blood Cells % 0.3 %; Red Blood Cells 4.37 10^6/uL (4.5-5.90); Red Cell Distribution Width 14.9 % (11.8-14.3)
[2023-05-28 09:37] LABS: Urine Bacteria FEW /hpf (None Seen); Urine Blood 2+ /uL (Negative); Urine Specific Gravity 1.013 (1.001-1.035); Urine WBC 2 /hpf (0 - 3)
[2023-05-28] MEDS ORDERED: ONDANSETRON ODT 4 MG TAB PO ONE (10:30)
[2023-05-28] MEDS ORDERED: THIAMINE 100mg/ml INJ (200mg/2ml VIAL) IV ONE (10:30)
[2023-05-28] MEDS ORDERED: PANTOPRAZOLE 40 MG/10 ML VIAL INJ IV ONE (10:30)
[2023-05-28] MEDS ORDERED: SODIUM CHLORIDE 0.9% 1,000 ML IV ONE (10:30)
[2023-05-28 10:59] LABS: Albumin 3.5 g/dL (3.4-5.0); Calcium 8.2 mg/dL (8.5-10.1); Potassium 3.6 mmol/L (3.5-5.1)
[2023-05-28 11:03] LABS: BUN/Creatinine Ratio 5.6 (10.0-20.0); Bilirubin, Total 2.9 mg/dL (0.2-1.0); Total Protein 7.9 g/dL (6.4-8.2)
[2023-05-28 11:08] LABS: INR 1.36 (0.9-1.15); Partial Thromboplastin Time 28.9 SEC (24.5-34.5)
[2023-05-28 11:11] LABS: Magnesium 1.8 mg/dL (1.6-2.6)
[2023-05-28] MEDS ORDERED: IOHEXOL 300 MG/ML 100ML BOTTLE IJ ONE (11:27)
[2023-05-28] MEDS ORDERED: NITROGLYCERIN 0.4 MG SL TAB SL PRN (14:15)
[2023-05-28] MEDS ORDERED: MORPHINE SULFATE INJ 2 MG/ml SYRG IV PRN (14:15)
[2023-05-28 14:20] VITALS: PULSE 85; RESP 14; O2SAT 99
[2023-05-28] MEDS ORDERED: ALPRAZolam 0.5 MG TAB PO PRN (14:45)
[2023-05-28] MEDS: SODIUM CHLORIDE 0.9% 1,000 ML IV SCH ×2 (15:01→22:06)
[2023-05-28] MEDS: OCTREOTIDE ACETATE 500 MCG in SODIUM CHL 0.9% 99 ML IV SCH (15:23)
[2023-05-28 19:25] VITALS: PULSE 102; RESP 17; O2SAT 96
[2023-05-28] MEDS: MORPHINE SULFATE INJ 2 MG/ml SYRG IV PRN ×2 (19:28→23:34)
[2023-05-28] MEDS: ONDANSETRON HCL 4 MG/2 ML VIAL IV PRN ×2 (19:28→23:33)
[2023-05-28] MEDS: GABAPENTIN 300 MG CAP PO SCH (22:06)
[2023-05-28] MEDS: PANTOPRAZOLE 40 MG/10 ML VIAL INJ IV SCH (22:06)
[2023-05-29] VITALS (7 sets, daily range): BP systolic 154–166; BP diastolic 87–89; PULSE 73–89; RESP 10–18; TEMP 98.1–98.2; O2SAT 96–99
[2023-05-29] MEDS ORDERED: hydrALAZINE HCL 20 MG/ML VL IV ONE (00:15)
[2023-05-29] MEDS ORDERED: OCTREOTIDE ACETATE 500 MCG/ML VL ONE (00:44)
[2023-05-29] MEDS: OCTREOTIDE ACETATE 500 MCG in SODIUM CHL 0.9% 99 ML IV SCH (00:50)
[2023-05-29] MEDS: ONDANSETRON HCL 4 MG/2 ML VIAL IV PRN (04:32)
[2023-05-29] MEDS: MORPHINE SULFATE INJ 2 MG/ml SYRG IV PRN (04:33)
[2023-05-29 04:48] LABS: Basophils # (auto) 0 10 ^3/uL (0-0.2); Eosinophils # (auto) 0.1 10 ^3/uL (0-0.8); Hemoglobin 15.2 g/dL (13.5-17.5); Lymphocytes # (auto) 0.4 10 ^3/uL (0.4-5.4); Monocytes # (auto) 0.5 10 ^3/uL (0-1.3); Nucleated Red Blood Cells % 0.1 %
[2023-05-29 04:50] LABS: Basophils % (auto) 1.1 % (0.0-2.0); Eosinophils % (auto) 3.6 % (0.0-7.0); Hematocrit 43.4 % (41.0-53.0); Lymphocytes % (auto) 13.6 % (10.0-50.0); Mean Corpuscular Hemoglobin 35.2 pg (28.0-32.0); Mean Corpuscular Hgb Conc. 35.1 g/dL (32.0-36.0); Mean Corpuscular Volume 100.5 fL (80.0-100.0); Monocytes % (auto) 15.4 % (0.0-12.0); Neutrophils % (auto) 66.3 % (37.0-80.0); Red Blood Cells 4.31 10^6/uL (4.5-5.90); Red Cell Distribution Width 14.9 % (11.8-14.3); White Blood Cell 2.9 10^3/uL (4.4-10.8)
[2023-05-29 05:03] LABS: Albumin 3.4 g/dL (3.4-5.0); Calcium 7.8 mg/dL (8.5-10.1); Potassium 3.3 mmol/L (3.5-5.1)
[2023-05-29 05:08] LABS: BUN/Creatinine Ratio 6.4 (10.0-20.0); Bilirubin, Total 5.2 mg/dL (0.2-1.0); Total Protein 7.9 g/dL (6.4-8.2)
[2023-05-29] MEDS: SODIUM CHLORIDE 0.9% 1,000 ML IV SCH ×3 (06:20→18:17)
[2023-05-29] MEDS: GABAPENTIN 300 MG CAP PO SCH ×3 (06:28→22:25)
[2023-05-29] MEDS: PANTOPRAZOLE 40 MG/10 ML VIAL INJ IV SCH ×2 (11:18→22:24)
[2023-05-29] MEDS: FOLIC ACID 1 MG, MULTIPLE VITAMIN 10 ML, MAGNESIUM SULF SDV 50% 8 MEQ, THIAMINE INJ 100... INJ SCH ×5 (12:37)
[2023-05-29] MEDS ORDERED: PROPOFOL 10 MG/ML 20 ML IV ONE (15:16)
[2023-05-29] MEDS ORDERED: ONDANSETRON HCL 4 MG/2 ML VIAL IV PRN (15:45)
[2023-05-29] MEDS: SUCRALFATE 1 GM/10 ML ORAL SUSP PO SCH ×2 (18:16→22:24)
[2023-05-30 05:00] VITALS: BP 144/78; PULSE 99; RESP 18; TEMP 98; O2SAT 95
[2023-05-30] MEDS: GABAPENTIN 300 MG CAP PO SCH ×2 (05:50→13:56)
[2023-05-30] MEDS: SUCRALFATE 1 GM/10 ML ORAL SUSP PO SCH ×3 (05:51→17:00)
[2023-05-30 08:00] VITALS: BP 134/72; PULSE 77; PULSE 81; RESP 20; TEMP 98.3; O2SAT 95
[2023-05-30] MEDS: PANTOPRAZOLE 40 MG/10 ML VIAL INJ IV SCH (09:58)
[2023-05-30 12:00] VITALS: BP 124/71; PULSE 93; RESP 20; TEMP 98.2; O2SAT 97
[2023-05-30] MEDS: FOLIC ACID 1 MG, MULTIPLE VITAMIN 10 ML, MAGNESIUM SULF SDV 50% 8 MEQ, THIAMINE INJ 100... INJ SCH ×5 (12:36)
[2023-05-30 16:00] VITALS: BP 131/89; PULSE 80; RESP 20; TEMP 98.3; O2SAT 96
[2023-05-30] MEDS ORDERED: PANT40TA2 PO (16:15)
[2023-05-30] MEDS: SODIUM CHLORIDE 0.9% 1,000 ML IV SCH (16:15)
[2023-05-30] MEDS ORDERED: SUCR1TAB22 OR (16:15)
[2023-05-30 18:17] VITALS: BP 161/96; TEMP 36.8
== END 2023-05-30 19:12 | disposition home or self-care (01) | DRG 241 ==
LOC: ER 08:00 → TELE 14:04 → TELE-WESTW 05-29 17:20
PROVIDERS: ADMIT Nurse Practitioner; ATTEND Nurse Practitioner
PROC: 0DB98ZX Excision of Duodenum, Via Natural or Artificial Opening Endoscopic, Diagnostic (ICD-10-PCS; 2023-05-29)
PROC: 0DB68ZX Excision of Stomach, Via Natural or Artificial Opening Endoscopic, Diagnostic (ICD-10-PCS; principal; 2023-05-29 15:14)
DX: K29.71 Gastritis, unspecified, with bleeding (principal); E72.20 Disorder of urea cycle metabolism, unspecified; K74.60 Unspecified cirrhosis of liver; F10.129 Alcohol abuse with intoxication, unspecified; F41.9 Anxiety disorder, unspecified; F32.A Depression, unspecified; F10.139 Alcohol abuse with withdrawal, unspecified; D64.9 Anemia, unspecified; I85.00 Esophageal varices without bleeding; I10 Essential (primary) hypertension; Z82.49 Family history of ischemic heart disease and other diseases of the circulatory system; Z82.0 Family history of epilepsy and other diseases of the nervous system; Z80.9 Family history of malignant neoplasm, unspecified; Y90.6 Blood alcohol level of 120-199 mg/100 ml; K25.4 Chronic or unspecified gastric ulcer with hemorrhage
CPT/HCPCS: 36415; 74177; 80053; 80320; 81001; 82140; 82270; 83690; 83735; 85025; 85610; 85730; 96361; 96374; 96375; C9113; G0378; J2405; J2704; Q0162

== ENCOUNTER 2023-12-06 09:41 | Inpatient (IN) | payer MEDICAID ==
[~2023-12-06] VITALS: Ht 317.5 cm; Wt 89.8 kg
[~2023-12-06 09:41] MED LIST changes: -CHL25C PO; +PANT40TA2 PO; +SUCR1TAB22 OR
[2023-12-06 10:31] LABS: Chloride 100 mmol/L (98-107); Potassium 3.6 mmol/L (3.5-5.1); Sodium 133 mmol/L (136-145)
[2023-12-06 10:32] LABS: Anion Gap 11 (5-15); Calcium 9.1 mg/dL (8.5-10.1); Carbon Dioxide 22 mmol/L (20-30)
[2023-12-06 10:37] LABS: Glucose 127 mg/dL (74-106)
[2023-12-06 10:52] LABS: Basophils # (auto) 0 10 ^3/uL (0-0.2); Eosinophils # (auto) 0 10 ^3/uL (0-0.8); Eosinophils % (auto) 0.7 % (0.0-7.0); Lymphocytes # (auto) 0.5 10 ^3/uL (0.4-5.4); Nucleated Red Blood Cells % 0.3 %; White Blood Cell 3.9 10^3/uL (4.4-10.8)
[2023-12-06 10:54] LABS: BUN/Creatinine Ratio 6.7 (10.0-20.0); Basophils % (auto) 0.3 % (0.0-2.0); Blood Urea Nitrogen < 5 mg/dL (9-23); Hematocrit 46.6 % (41.0-53.0); Hemoglobin 16.1 g/dL (13.5-17.5); Lymphocytes % (auto) 12.7 % (10.0-50.0); Mean Corpuscular Hemoglobin 34.6 pg (28.0-32.0); Mean Corpuscular Hgb Conc. 34.5 g/dL (32.0-36.0); Mean Corpuscular Volume 100.4 fL (80.0-100.0); Monocytes # (auto) 0.3 10 ^3/uL (0-1.3); Monocytes % (auto) 8.8 % (0.0-12.0); Neutrophils # (auto) 3.1 10 ^3/uL (1.6-8.6); Neutrophils % (auto) 77.5 % (37.0-80.0); Red Blood Cells 4.64 10^6/uL (4.5-5.90); Red Cell Distribution Width 14.1 % (11.8-14.3)
[2023-12-06 12:36] LABS: Blood Alcohol 4.4 mg/dL (<10)
[2023-12-06] MEDS ORDERED: NITROGLYCERIN 0.4 MG SL TAB SL PRN (15:15)
[2023-12-06] MEDS ORDERED: MORPHINE SULFATE INJ 2 MG/ml SYRG IV PRN (15:15)
[2023-12-06] MEDS: SODIUM CHLORIDE 0.9% 1,000 ML IV ONE ×2 (15:42→16:16)
[2023-12-06 16:21] LABS: Urine Bacteria MOD /hpf (None Seen); Urine Blood 3+ /uL (Negative); Urine Clarity HAZY (Clear); Urine Color Brown (Yellow); Urine Mucus FEW (None Seen); Urine Protein, UAD 3+ (Negative); Urine Specific Gravity 1.026 (1.001-1.035); Urine Sperm PRESENT /hpf (None Seen); Urine WBC 5 /hpf (0 - 3); Urine pH 6.5 (5.0-8.0)
[2023-12-06 16:23] LABS: Amphetamine Screen, Urine Neg (NEGATIVE); Barbiturate Scree,Urine Neg (NEGATIVE); Benzodiazephine Screen, Urine Neg (NEGATIVE); Cocaine Screen, Urine Neg (NEGATIVE); Opiate Scree,Urine Neg (NEGATIVE)
[2023-12-06 16:24] LABS: Cannabinoid Screen, Urine Neg (NEGATIVE); Phencyclidine Screen, Urine Neg (NEGATIVE)
[2023-12-06] MEDS: SODIUM CHLORIDE 0.9% 1,000 ML IV SCH (16:27)
[2023-12-06] MEDS: MORPHINE SULFATE INJ 2 MG/ml SYRG IV PRN (16:28)
[2023-12-06] MEDS: THIAMINE 100mg/ml INJ (200mg/2ml VIAL) IV ONE (17:09)
[2023-12-06 17:25] LABS: Folate (Folic Acid) 13.84 ng/mL (>5.38)
[2023-12-06 17:41] LABS: Alanine Aminotransferase 93 U/L (7-40); Alkaline Phosphatase 117 U/L (46-116); Calcium 8.7 mg/dL (8.5-10.1); Carbon Dioxide 22 mmol/L (20-30); Chloride 102 mmol/L (98-107); Glucose 147 mg/dL (74-106); Potassium 3.5 mmol/L (3.5-5.1)
[2023-12-06 17:42] LABS: Albumin 3.8 g/dL (3.2-4.8); Anion Gap 10 (5-15); Aspartate Aminotransferase 213 U/L (13-40); BUN/Creatinine Ratio 7.5 (10.0-20.0); Bilirubin, Total 7.8 mg/dL (0.2-1.0); Blood Urea Nitrogen 7 mg/dL (9-23); Sodium 134 mmol/L (136-145); Total Protein 8.1 g/dL (5.7-8.2)
[2023-12-06] MEDS: SUCRALFATE 1 GM TAB PO SCH (18:26)
[2023-12-06] MEDS: PROPRANOLOL HCL 20 MG TAB PO SCH (21:53)
[2023-12-06] MEDS: PANTOPRAZOLE 40 MG TAB PO SCH (21:53)
[2023-12-07] VITALS (8 sets, daily range): BP systolic 131–169; BP diastolic 78–98; PULSE 74–80; RESP 16–20; TEMP 98.2–98.6; O2SAT 95–99
[2023-12-07 05:01] LABS: Monocytes % (auto) 13.3 % (0.0-12.0)
[2023-12-07 05:02] LABS: Basophils # (auto) 0 10 ^3/uL (0-0.2); Hemoglobin 15.4 g/dL (13.5-17.5); Lymphocytes # (auto) 0.6 10 ^3/uL (0.4-5.4); Monocytes # (auto) 0.7 10 ^3/uL (0-1.3); Neutrophils # (auto) 3.6 10 ^3/uL (1.6-8.6); Red Cell Distribution Width 14.4 % (11.8-14.3)
[2023-12-07 05:03] LABS: Basophils % (auto) 0.4 % (0.0-2.0); Eosinophils # (auto) 0.2 10 ^3/uL (0-0.8); Eosinophils % (auto) 3.4 % (0.0-7.0); Hematocrit 44.4 % (41.0-53.0); Lymphocytes % (auto) 12.3 % (10.0-50.0); Mean Corpuscular Hemoglobin 35.1 pg (28.0-32.0); Mean Corpuscular Hgb Conc. 34.7 g/dL (32.0-36.0); Mean Corpuscular Volume 101.1 fL (80.0-100.0); Neutrophils % (auto) 70.6 % (37.0-80.0); Nucleated Red Blood Cells % 0.7 %; Red Blood Cells 4.39 10^6/uL (4.5-5.90); White Blood Cell 5.1 10^3/uL (4.4-10.8)
[2023-12-07 05:19] LABS: Alanine Aminotransferase 78 U/L (7-40); Albumin 3.4 g/dL (3.2-4.8); Alkaline Phosphatase 101 U/L (46-116); Anion Gap 10 (5-15); Aspartate Aminotransferase 164 U/L (13-40); BUN/Creatinine Ratio 10.5 (10.0-20.0); Blood Urea Nitrogen 8 mg/dL (9-23); Calcium 8.2 mg/dL (8.7-10.4); Carbon Dioxide 21 mmol/L (20-30); Chloride 104 mmol/L (98-107); Glucose 93 mg/dL (74-106); Lipase 59 U/L (12-53); Potassium 3.7 mmol/L (3.5-5.1); Sodium 135 mmol/L (136-145)
[2023-12-07 05:20] LABS: Bilirubin, Total 7.3 mg/dL (0.2-1.0); Total Protein 7.4 g/dL (5.7-8.2)
[2023-12-07] MEDS: LISINOPRIL 20 MG TAB PO SCH (09:01)
[2023-12-07] MEDS: PANTOPRAZOLE 40 MG/10 ML VIAL INJ IV SCH (09:01)
[2023-12-07] MEDS: FUROSEMIDE 40 MG TAB PO SCH (09:02)
[2023-12-07] MEDS: ENOXAPARIN SOD 40 MG/0.4 ML SYRINGE SC SCH (09:05)
[2023-12-07] MEDS: D5W/SOD CHLO 0.9% 1,000 ML IV SCH (14:30)
[2023-12-08 05:02] VITALS: BP 137/81; PULSE 75; RESP 18; TEMP 98.1; O2SAT 97
[2023-12-08 06:03] LABS: Alanine Aminotransferase 64 U/L (7-40); Albumin 3.2 g/dL (3.2-4.8); Alkaline Phosphatase 91 U/L (46-116); Anion Gap 8 (5-15); Aspartate Aminotransferase 116 U/L (13-40); BUN/Creatinine Ratio 10.8 (10.0-20.0); Bilirubin, Total 5.4 mg/dL (0.2-1.0); Blood Urea Nitrogen 9 mg/dL (9-23); Calcium 7.8 mg/dL (8.7-10.4); Carbon Dioxide 24 mmol/L (20-30); Chloride 105 mmol/L (98-107); Glucose 95 mg/dL (74-106); Lipase 87 U/L (12-53); Potassium 3.4 mmol/L (3.5-5.1); Sodium 137 mmol/L (136-145)
[2023-12-08 06:04] LABS: Total Protein 6.8 g/dL (5.7-8.2)
[2023-12-08 06:16] LABS: Basophils # (auto) 0 10 ^3/uL (0-0.2); Eosinophils # (auto) 0.2 10 ^3/uL (0-0.8); Hemoglobin 14.8 g/dL (13.5-17.5); Red Cell Distribution Width 14.1 % (11.8-14.3)
[2023-12-08 06:24] LABS: Basophils % (auto) 0.5 % (0.0-2.0); Eosinophils % (auto) 4.8 % (0.0-7.0); Hematocrit 43.3 % (41.0-53.0); Lymphocytes # (auto) 0.8 10 ^3/uL (0.4-5.4); Lymphocytes % (auto) 18.3 % (10.0-50.0); Mean Corpuscular Hemoglobin 34.7 pg (28.0-32.0); Mean Corpuscular Hgb Conc. 34.2 g/dL (32.0-36.0); Mean Corpuscular Volume 101.4 fL (80.0-100.0); Monocytes # (auto) 0.8 10 ^3/uL (0-1.3); Monocytes % (auto) 16.6 % (0.0-12.0); Neutrophils # (auto) 2.7 10 ^3/uL (1.6-8.6); Neutrophils % (auto) 59.8 % (37.0-80.0); Nucleated Red Blood Cells % 0.3 %; Red Blood Cells 4.27 10^6/uL (4.5-5.90); White Blood Cell 4.5 10^3/uL (4.4-10.8)
[2023-12-08 08:26] VITALS: PULSE 70; RESP 18; O2SAT 98
[2023-12-08 09:00] VITALS: BP 125/74; PULSE 70; RESP 18; TEMP 97.9; O2SAT 98
[2023-12-08] MEDS: ONDANSETRON ODT 4 MG TAB PO ONE (10:17)
[2023-12-08] MEDS: LACTULOSE 20Gm/30ML SOLN PO ONE (10:17)
[2023-12-08] MEDS ORDERED: PANT40TA2 PO (11:21)
[2023-12-08] MEDS ORDERED: LACT10SO59 PO (11:21)
[2023-12-08] MEDS ORDERED: POTASSIUM EFFERVESENT TAB 25 MEQ PO ONE (11:30)
[2023-12-08 11:34] VITALS: BP 125/74; PULSE 70; RESP 18; TEMP 97.9; O2SAT 98
[2023-12-09 10:06] LABS: AFP Serum Tumor Marker 4.3 ng/mL (0.0-8.4); PSA Free 0.18 ng/mL; Prostate Specific Antigen 0.3 ng/mL (0.0-4.0)
== END 2023-12-08 13:11 | disposition home or self-care (01) | DRG 241 ==
LOC: ER 09:41 → OVERFLOW 15:16 → WEST WING 15:16
PROVIDERS: ADMIT Nurse Practitioner Family; ATTEND Nurse Practitioner Family
DX: K29.20 Alcoholic gastritis without bleeding (principal); K85.20 Alcohol induced acute pancreatitis without necrosis or infection; D69.6 Thrombocytopenia, unspecified; K70.31 Alcoholic cirrhosis of liver with ascites; E87.1 Hypo-osmolality and hyponatremia; F32.A Depression, unspecified; F41.9 Anxiety disorder, unspecified; I10 Essential (primary) hypertension; E80.6 Other disorders of bilirubin metabolism; F10.239 Alcohol dependence with withdrawal, unspecified; K80.20 Calculus of gallbladder without cholecystitis without obstruction; Z82.0 Family history of epilepsy and other diseases of the nervous system; Z82.49 Family history of ischemic heart disease and other diseases of the circulatory system
CPT/HCPCS: 36415; 74176; 80048; 80053; 80307; 80320; 81001; 82105; 82140; 82607; 82746; 83690; 84154; 85025; C9113; G0378; J7042; Q0162

== ENCOUNTER 2024-02-17 08:23 | Emergency (ER) | payer MEDICAID ==
[~2024-02-17] VITALS: Ht 165.1 cm; Wt 88.8 kg
[~2024-02-17 08:23] MED LIST changes: -SUCR1TAB22 OR; +SUCR1TAB31 OR
[2024-02-17] MEDS: SODIUM CHLORIDE 0.9% 1,000 ML IV ONE (09:16)
[2024-02-17] MEDS: cloNIDine HCL 0.1 MG TAB PO ONE (09:18)
[2024-02-17 09:56] LABS: Basophils # (auto) 0 10 ^3/uL (0-0.2); Eosinophils # (auto) 0.1 10 ^3/uL (0-0.8); Monocytes # (auto) 0.4 10 ^3/uL (0-1.3); Neutrophils # (auto) 2.9 10 ^3/uL (1.6-8.6); White Blood Cell 4.3 10^3/uL (4.4-10.8)
[2024-02-17 09:57] LABS: Chloride 105 mmol/L (98-107); Potassium 3.9 mmol/L (3.5-5.1); Sodium 137 mmol/L (136-145)
[2024-02-17 09:58] LABS: Anion Gap 12 (5-15); Basophils % (auto) 1.1 % (0.0-2.0); Calcium 8.3 mg/dL (8.5-10.1); Carbon Dioxide 20 mmol/L (20-30); Eosinophils % (auto) 2.3 % (0.0-7.0); Hematocrit 44.1 % (41.0-53.0); Hemoglobin 15.5 g/dL (13.5-17.5); Lymphocytes # (auto) 0.8 10 ^3/uL (0.4-5.4); Lymphocytes % (auto) 19.4 % (10.0-50.0); Mean Corpuscular Hemoglobin 35.7 pg (28.0-32.0); Mean Corpuscular Hgb Conc. 35.1 g/dL (32.0-36.0); Mean Corpuscular Volume 101.6 fL (80.0-100.0); Monocytes % (auto) 8.8 % (0.0-12.0); Neutrophils % (auto) 68.4 % (37.0-80.0); Nucleated Red Blood Cells % 0.5 %; Red Blood Cells 4.35 10^6/uL (4.5-5.90); Red Cell Distribution Width 15.1 % (11.8-14.3)
[2024-02-17 10:03] LABS: Glucose 155 mg/dL (74-106)
[2024-02-17 10:09] LABS: BUN/Creatinine Ratio 8.1 (10.0-20.0); Blood Urea Nitrogen < 5 mg/dL (9-23)
[2024-02-17 10:30] LABS: Magnesium 1.5 mg/dL (1.6-2.6)
[2024-02-17 11:12] VITALS: BP 143/82; PULSE 94; RESP 15; TEMP 98.2; O2SAT 96
[2024-02-17] MEDS ORDERED: MULT-1018 PO (11:18)
[2024-02-17 11:31] LABS: Platelet Estimate Decreased
[2024-02-17 11:32] LABS: Macrocytosis Slight
== END 2024-02-17 11:27 | disposition home or self-care (01) ==
LOC: ER 08:23
DX: S01.511A Laceration without foreign body of lip, initial encounter (principal); I16.0 Hypertensive urgency; F10.10 Alcohol abuse, uncomplicated; F41.9 Anxiety disorder, unspecified; F32.9 Major depressive disorder, single episode, unspecified; Z98.890 Other specified postprocedural states; Z79.899 Other long term (current) drug therapy; X58.XXXA Exposure to other specified factors, initial encounter; Y93.89 Activity, other specified; Y92.89 Other specified places as the place of occurrence of the external cause; Y99.8 Other external cause status; Y90.0 Blood alcohol level of less than 20 mg/100 ml
CPT/HCPCS: 36415; 80048; 83735; 85025; 93005; 96360; 99284; J7030

== ENCOUNTER 2024-04-04 09:17 | Inpatient (IN) | payer MEDICAID ==
[~2024-04-04] VITALS: Ht 167.6 cm; Wt 89.3 kg
[2024-04-04 01:00] VITALS: BP 155/90; PULSE 83; RESP 18; TEMP 98.3; O2SAT 96
[~2024-04-04 09:17] MED LIST changes: +MULT-1018 PO
[2024-04-04 09:55] VITALS: PULSE 109; RESP 16; O2SAT 94
[2024-04-04] MEDS: THIAMINE 100mg/ml INJ (200mg/2ml VIAL) IV ONE (10:14)
[2024-04-04] MEDS: LORazepam 2MG/ML-1ML VIAL IV ONE (10:14)
[2024-04-04] MEDS: SODIUM CHLORIDE 0.9% 1,000 ML IVB ONE (10:14)
[2024-04-04 10:27] LABS: Basophils # (auto) 0 10 ^3/uL (0-0.2); Eosinophils # (auto) 0.1 10 ^3/uL (0-0.8); Hemoglobin 15.4 g/dL (13.5-17.5); Lymphocytes # (auto) 1.1 10 ^3/uL (0.4-5.4); Monocytes # (auto) 0.5 10 ^3/uL (0-1.3); Neutrophils # (auto) 2.6 10 ^3/uL (1.6-8.6)
[2024-04-04 10:29] LABS: Eosinophils % (auto) 1.7 % (0.0-7.0); Hematocrit 44.3 % (41.0-53.0); Mean Corpuscular Hemoglobin 35.4 pg (28.0-32.0); Mean Corpuscular Hgb Conc. 34.8 g/dL (32.0-36.0); Mean Corpuscular Volume 101.8 fL (80.0-100.0); Monocytes % (auto) 12.3 % (0.0-12.0); Nucleated Red Blood Cells % 0.2 %; Red Blood Cells 4.36 10^6/uL (4.5-5.90); Red Cell Distribution Width 13.9 % (11.8-14.3); White Blood Cell 4.3 10^3/uL (4.4-10.8)
[2024-04-04 10:37] LABS: Chloride 103 mmol/L (98-107); Potassium 3.2 mmol/L (3.5-5.1); Sodium 136 mmol/L (136-145)
[2024-04-04 10:38] LABS: Anion Gap 10 (5-15); Calcium 8.5 mg/dL (8.5-10.1); Carbon Dioxide 23 mmol/L (20-30)
[2024-04-04 10:43] LABS: Blood Alcohol 282.6 mg/dL (<10); Glucose 132 mg/dL (74-106)
[2024-04-04 10:44] LABS: BUN/Creatinine Ratio 6.9 (10.0-20.0); Blood Urea Nitrogen < 5 mg/dL (9-23)
[2024-04-04] MEDS ORDERED: ACETAMINOPHEN 325 MG TAB PO PRN (13:30)
[2024-04-04] MEDS ORDERED: NITROGLYCERIN 0.4 MG SL TAB SL PRN (13:30)
[2024-04-04] MEDS ORDERED: MORPHINE SULFATE INJ 2 MG/ml SYRG IV PRN (13:30)
[2024-04-04 14:12] LABS: Alanine Aminotransferase 56 U/L (7-40); Albumin 3.2 g/dL (3.2-4.8); Alkaline Phosphatase 89 U/L (46-116); Anion Gap 6 (5-15); Aspartate Aminotransferase 135 U/L (13-40); Bilirubin, Total 2.9 mg/dL (0.2-1.0); Carbon Dioxide 27 mmol/L (20-30); Chloride 106 mmol/L (98-107); Glucose 111 mg/dL (74-106); Potassium 3.6 mmol/L (3.5-5.1); Sodium 139 mmol/L (136-145); Total Protein 7.2 g/dL (5.7-8.2)
[2024-04-04 14:14] LABS: BUN/Creatinine Ratio 7.7 (10.0-20.0); Blood Urea Nitrogen < 5 mg/dL (9-23)
[2024-04-04] MEDS ORDERED: LORazepam 2MG/ML-1ML VIAL IV PRN (15:00)
[2024-04-04] MEDS: POTASSIUM EFFERVESENT TAB 25 MEQ PO ONE (15:16)
[2024-04-04] MEDS: SODIUM CHLORIDE 0.9% 2,000 ML IV ONE (15:18)
[2024-04-04] MEDS: SODIUM CHLORIDE 0.9% 1,000 ML IV SCH (17:52)
[2024-04-04] MEDS: FOLIC ACID 1 MG, MAGNESIUM SULF SDV 50% 8 MEQ, MULTIPLE VITAMIN 10 ML, THIAMINE INJ 100... INJ SCH (18:29)
[2024-04-04] MEDS: SUCRALFATE 1 GM TAB PO SCH (18:45)
[2024-04-04] MEDS: ONDANSETRON HCL 4 MG/2 ML VIAL IV PRN (20:46)
[2024-04-04] MEDS: PROPRANOLOL HCL 20 MG TAB PO SCH (21:36)
[2024-04-04] MEDS: PANTOPRAZOLE 40 MG TAB PO SCH (21:37)
[2024-04-04 23:34] VITALS: O2SAT 96
[2024-04-05] VITALS (8 sets, daily range): BP systolic 133–154; BP diastolic 68–92; PULSE 69–98; RESP 16–18; TEMP 97.6–98.5; O2SAT 95–96
[2024-04-05 05:42] LABS: Basophils # (auto) 0 10 ^3/uL (0-0.2); Basophils % (auto) 0.4 % (0.0-2.0); Eosinophils # (auto) 0 10 ^3/uL (0-0.8); Eosinophils % (auto) 1.1 % (0.0-7.0); Hemoglobin 14.1 g/dL (13.5-17.5); Lymphocytes # (auto) 0.5 10 ^3/uL (0.4-5.4); Lymphocytes % (auto) 9.7 % (10.0-50.0); Mean Corpuscular Hemoglobin 35.7 pg (28.0-32.0); Mean Corpuscular Hgb Conc. 35.3 g/dL (32.0-36.0); Monocytes # (auto) 0.5 10 ^3/uL (0-1.3); Monocytes % (auto) 11.4 % (0.0-12.0); Neutrophils # (auto) 3.6 10 ^3/uL (1.6-8.6); Neutrophils % (auto) 77.4 % (37.0-80.0); Nucleated Red Blood Cells % 0.1 %; Red Blood Cells 3.96 10^6/uL (4.5-5.90); Red Cell Distribution Width 14.1 % (11.8-14.3); White Blood Cell 4.7 10^3/uL (4.4-10.8)
[2024-04-05 05:57] LABS: Alanine Aminotransferase 64 U/L (7-40); Albumin 3.2 g/dL (3.2-4.8); Alkaline Phosphatase 95 U/L (46-116); Anion Gap 8 (5-15); Aspartate Aminotransferase 182 U/L (13-40); Calcium 7.5 mg/dL (8.7-10.4); Carbon Dioxide 25 mmol/L (20-30); Chloride 101 mmol/L (98-107); Glucose 143 mg/dL (74-106); Potassium 3.4 mmol/L (3.5-5.1)
[2024-04-05 05:58] LABS: Bilirubin, Total 5.4 mg/dL (0.2-1.0); Total Protein 7.1 g/dL (5.7-8.2)
[2024-04-05 06:18] LABS: BUN/Creatinine Ratio 6.9 (10.0-20.0); Blood Urea Nitrogen < 5 mg/dL (9-23); Sodium 134 mmol/L (136-145)
[2024-04-05 07:08] LABS: Macrocytosis Slight; Platelet Estimate Decreased
[2024-04-05] MEDS ORDERED: MULTIPLE VITAMIN TAB PO SCH (10:00)
[2024-04-05] MEDS ORDERED: LISINOPRIL 20 MG TAB PO SCH (10:00)
[2024-04-05] MEDS ORDERED: ENOXAPARIN SOD 40 MG/0.4 ML SYRINGE SC SCH (10:00)
[2024-04-05] MEDS: chlordiazePOXIDE HCL 5 MG CAP PO SCH (11:32)
[2024-04-06] VITALS (7 sets, daily range): BP systolic 142–150; BP diastolic 87–92; PULSE 65–80; RESP 16–18; TEMP 98–98.4; O2SAT 95–97
[2024-04-06] MEDS: POTASSIUM EFFERVESENT TAB 25 MEQ PO ONE (12:04)
[2024-04-06] MEDS ORDERED: SUCR1TAB31 OR (12:41)
[2024-04-06] MEDS ORDERED: LISI20TA56 PO (12:41)
[2024-04-06] MEDS ORDERED: FURO40TA4 PO (12:41)
[2024-04-06] MEDS ORDERED: PROP1TAB53 PO (12:41)
[2024-04-06] MEDS ORDERED: MULT-1018 PO (12:42)
[2024-04-06] MEDS ORDERED: LACT10SO59 PO (12:42)
[2024-04-06] MEDS ORDERED: PANT40TA2 PO (12:42)
== END 2024-04-06 15:30 | disposition home or self-care (01) | DRG 280 ==
LOC: ER 09:17 → TELE 13:26 → TELE-WESTW 23:12
PROVIDERS: ADMIT Nurse Practitioner Family; ATTEND Nurse Practitioner Acute Care
DX: K70.31 Alcoholic cirrhosis of liver with ascites (principal); D69.6 Thrombocytopenia, unspecified; E66.01 Morbid (severe) obesity due to excess calories; F10.139 Alcohol abuse with withdrawal, unspecified; F10.129 Alcohol abuse with intoxication, unspecified; E87.6 Hypokalemia; I10 Essential (primary) hypertension; F32.A Depression, unspecified; Y90.8 Blood alcohol level of 240 mg/100 ml or more; F41.9 Anxiety disorder, unspecified; Z79.899 Other long term (current) drug therapy; Z68.31 Body mass index [BMI] 31.0-31.9, adult
CPT/HCPCS: 36415; 80048; 80053; 80320; 83735; 85025; 96361; 96374; 96375; G0378; J2405

== ENCOUNTER 2024-07-29 16:15 | Inpatient (IN) | payer MEDICAID ==
[~2024-07-29] VITALS: Ht 160 cm; Wt 82.4 kg
[2024-07-29 16:49] LABS: Urine Bacteria None Seen /hpf (None Seen)
[2024-07-29 17:02] LABS: Amphetamine Screen, Urine Neg (NEGATIVE); Barbiturate Scree,Urine Neg (NEGATIVE); Benzodiazephine Screen, Urine Neg (NEGATIVE); Cocaine Screen, Urine Neg (NEGATIVE); Opiate Scree,Urine Neg (NEGATIVE)
[2024-07-29 17:03] LABS: Cannabinoid Screen, Urine Neg (NEGATIVE); Phencyclidine Screen, Urine Neg (NEGATIVE)
[2024-07-29 17:06] LABS: Urine Blood 1+ /uL (Negative); Urine Clarity Clear (Clear); Urine Color Yellow (Yellow); Urine Protein, UAD Negative (Negative); Urine Specific Gravity 1.003 (1.001-1.035); Urine Urobilinogen 2 mg/dL (Negative); Urine WBC <1 /hpf (0 - 3); Urine pH 5.5 (5.0-9.0)
[2024-07-29 18:16] LABS: Basophils # (auto) 0.1 10 ^3/uL (0-0.2); Hemoglobin 14.4 g/dL (13.5-17.5); Lymphocytes # (auto) 1.9 10 ^3/uL (0.4-5.4); Nucleated Red Blood Cells % 0.1 %; Platelet Count (auto) 179 10^3/uL (140-450)
[2024-07-29 18:18] LABS: Basophils % (auto) 1.2 % (0.0-2.0); Eosinophils # (auto) 0.4 10 ^3/uL (0-0.8); Eosinophils % (auto) 6.4 % (0.0-7.0); Hematocrit 39.7 % (41.0-53.0); Lymphocytes % (auto) 27.5 % (10.0-50.0); Mean Corpuscular Hemoglobin 38.5 pg (28.0-32.0); Mean Corpuscular Hgb Conc. 36.3 g/dL (32.0-36.0); Mean Corpuscular Volume 106.1 fL (80.0-100.0); Monocytes % (auto) 14.6 % (0.0-12.0); Neutrophils # (auto) 3.4 10 ^3/uL (1.6-8.6); Neutrophils % (auto) 50.3 % (37.0-80.0); Red Blood Cells 3.74 10^6/uL (4.5-5.90); White Blood Cell 6.8 10^3/uL (4.4-10.8)
[2024-07-29 18:32] LABS: Alanine Aminotransferase 119 U/L (7-40); Albumin 3.2 g/dL (3.2-4.8); Alkaline Phosphatase 116 U/L (46-116); Anion Gap 7 (5-15); Aspartate Aminotransferase 221 U/L (13-40); Bilirubin, Total 5.5 mg/dL (0.2-1.0); Calcium 8.6 mg/dL (8.7-10.4); Carbon Dioxide 23 mmol/L (20-30); Chloride 110 mmol/L (98-107); Glucose 98 mg/dL (74-106); Lipase 36 U/L (12-53); Potassium 3.5 mmol/L (3.5-5.1); Sodium 140 mmol/L (136-145)
[2024-07-29 18:33] LABS: Total Protein 7.4 g/dL (5.7-8.2)
[2024-07-29 18:38] LABS: Lactic Acid w/Reflex 2.1 mmol/L (0.4-2.0)
[2024-07-29 18:39] LABS: BUN/Creatinine Ratio 6.3 (10.0-20.0); Blood Urea Nitrogen < 5 mg/dL (9-23)
[2024-07-29 21:56] LABS: INR 1.3 (0.9-1.15); Partial Thromboplastin Time 28.8 SEC (24.5-34.5); Prothrombin Time 13.5 sec (9.3-11.8)
[2024-07-30] VITALS (10 sets, daily range): BP systolic 120–157; BP diastolic 53–98; PULSE 94–120; RESP 16–27; TEMP 98–98.3; O2SAT 96–100
[2024-07-30] MEDS: FUROSEMIDE 20 MG TAB PO ONE (00:03)
[2024-07-30] MEDS: SPIRONOLACTONE 25 MG TAB PO ONE (00:03)
[2024-07-30] MEDS: THIAMINE 100mg/ml INJ (200mg/2ml VIAL) IV ONE (00:19)
[2024-07-30] MEDS ORDERED: ACETAMINOPHEN 500 MG TAB PO PRN (06:15)
[2024-07-30] MEDS ORDERED: hydrALAZINE HCL 20 MG/ML VL IV PRN (06:15)
[2024-07-30] MEDS: ENOXAPARIN SOD 40 MG/0.4 ML SYRINGE SC ONE (06:38)
[2024-07-30 09:09] LABS: Hepatitis B Core Total AB Negative (Negative)
[2024-07-30 09:42] LABS: Chloride 105 mmol/L (98-107); Potassium 3.1 mmol/L (3.5-5.1); Sodium 140 mmol/L (136-145)
[2024-07-30 09:43] LABS: Calcium 8.8 mg/dL (8.7-10.4)
[2024-07-30 09:48] LABS: Glucose 107 mg/dL (74-106)
[2024-07-30 10:05] LABS: BUN/Creatinine Ratio 6.3 (10.0-20.0); Blood Urea Nitrogen < 5 mg/dL (9-23)
[2024-07-30 10:07] LABS: Lactic Acid w/Reflex 2.8 mmol/L (0.4-2.0)
[2024-07-30 10:15] LABS: Anion Gap 11 (5-15); Carbon Dioxide 24 mmol/L (20-31)
[2024-07-30 10:19] LABS: Hepatitis A Total Antibody Positive (Negative); Hepatitis B Surface Antibody Negative (Negative); Hepatitis B Surface Antigen Negative (Negative); Hepatitis C Antibody Negative (Negative)
[2024-07-30] MEDS: FUROSEMIDE 40 MG TAB PO SCH (10:54)
[2024-07-30] MEDS: SPIRONOLACTONE 25 MG TAB PO SCH (10:54)
[2024-07-30 11:09] LABS: Basophils # (auto) 0 10 ^3/uL (0-0.2); Basophils % (auto) 0.6 % (0.0-2.0); Eosinophils # (auto) 0.3 10 ^3/uL (0-0.8); Eosinophils % (auto) 5.1 % (0.0-7.0); Hematocrit 41.9 % (41.0-53.0); Hemoglobin 15.2 g/dL (13.5-17.5); Lymphocytes # (auto) 1.3 10 ^3/uL (0.4-5.4); Lymphocytes % (auto) 24.3 % (10.0-50.0); Mean Corpuscular Hemoglobin 38.7 pg (28.0-32.0); Mean Corpuscular Hgb Conc. 36.3 g/dL (32.0-36.0); Mean Corpuscular Volume 106.7 fL (80.0-100.0); Monocytes # (auto) 0.7 10 ^3/uL (0-1.3); Monocytes % (auto) 12.7 % (0.0-12.0); Neutrophils % (auto) 57.3 % (37.0-80.0); Nucleated Red Blood Cells % 0.3 %; Platelet Count (auto) 164 10^3/uL (140-450); Red Blood Cells 3.93 10^6/uL (4.5-5.90); White Blood Cell 5.2 10^3/uL (4.4-10.8)
[2024-07-30 12:32] LABS: Albumin 3.3 g/dL (3.2-4.8); Bilirubin, Direct 4.1 mg/dL (<0.3); Bilirubin, Total 5.9 mg/dL (0.2-1.0)
[2024-07-30] MEDS: LISINOPRIL 20 MG TAB PO SCH (16:37)
[2024-07-30] MEDS ORDERED: ONDANSETRON HCL 4 MG/2 ML VIAL IV PRN (17:15)
[2024-07-30] MEDS: POTASSIUM CHL 20 Meq TABLET PO ONE (18:06)
[2024-07-30] MEDS: FOLIC ACID 1 MG, MULTIPLE VITAMIN 10 ML, MAGNESIUM SULF SDV 50% 8 MEQ, THIAMINE INJ 100... INJ SCH (18:10)
[2024-07-30] MEDS: MAGNESIUM OXIDE 400 MG TAB PO SCH (21:40)
[2024-07-30 22:35] LABS: Body Fluid Polymorphonuclear 3 % (0-25); Body Fluid Red Blood Cells 730 CUMM (0-2000); Body Fluid White Blood Cells 152 CUMM (0-200)
[2024-07-31] VITALS (7 sets, daily range): BP systolic 133–149; BP diastolic 76–85; PULSE 86–106; RESP 17–20; TEMP 98.1–98.8; O2SAT 98–99
[2024-07-31] MEDS ORDERED: HYDROcodone-ACET 5/325MG TAB PO PRN (00:15)
[2024-07-31 07:47] LABS: Basophils # (auto) 0 10 ^3/uL (0-0.2); Basophils % (auto) 0.5 % (0.0-2.0); Eosinophils # (auto) 0.2 10 ^3/uL (0-0.8); Eosinophils % (auto) 4.5 % (0.0-7.0); Hematocrit 37.8 % (41.0-53.0); Hemoglobin 13.6 g/dL (13.5-17.5); Lymphocytes % (auto) 19.9 % (10.0-50.0); Mean Corpuscular Hemoglobin 38.6 pg (28.0-32.0); Mean Corpuscular Hgb Conc. 36.1 g/dL (32.0-36.0); Monocytes # (auto) 0.8 10 ^3/uL (0-1.3); Monocytes % (auto) 15.3 % (0.0-12.0); Neutrophils % (auto) 59.8 % (37.0-80.0); Nucleated Red Blood Cells % 0.2 %; Platelet Count (auto) 119 10^3/uL (140-450); Red Blood Cells 3.53 10^6/uL (4.5-5.90)
[2024-07-31 08:10] LABS: Alanine Aminotransferase 90 U/L (7-40); Albumin 2.8 g/dL (3.2-4.8); Alkaline Phosphatase 116 U/L (46-116); Anion Gap 8 (5-15); Aspartate Aminotransferase 156 U/L (13-40); Calcium 8.3 mg/dL (8.7-10.4); Carbon Dioxide 27 mmol/L (20-31); Chloride 103 mmol/L (98-107); Glucose 106 mg/dL (74-106); Magnesium 1.6 mg/dL (1.6-2.6); Potassium 3.1 mmol/L (3.5-5.1); Sodium 138 mmol/L (136-145)
[2024-07-31 08:11] LABS: Bilirubin, Total 7.5 mg/dL (0.2-1.0)
[2024-07-31 08:16] LABS: BUN/Creatinine Ratio 6.8 (10.0-20.0); Blood Urea Nitrogen < 5 mg/dL (9-23)
[2024-07-31] MEDS: POTASSIUM CHL 20 Meq TABLET PO ONE ×2 (08:30→15:18)
[2024-07-31] MEDS: ENOXAPARIN SOD 40 MG/0.4 ML SYRINGE SC SCH (10:30)
[2024-07-31] MEDS ORDERED: THIA100T10 PO (11:23)
[2024-07-31] MEDS ORDERED: FOLI-119 PO (11:23)
[2024-07-31] MEDS ORDERED: OMEP1CAP70 PO (11:23)
[2024-07-31] MEDS ORDERED: ACAM1TAB PO (11:23)
[2024-07-31] MEDS ORDERED: SPIR100T PO (12:14)
[2024-07-31] MEDS ORDERED: MAGN400T40 OR (16:03)
[2024-07-31] MEDS ORDERED: POTA-180 PO (16:03)
[2024-07-31] MEDS ORDERED: FURO1TAB31 PO (16:03)
[2024-08-01 12:06] LABS: Protein, Body Fluid 2.7 g/dL (.)
== END 2024-07-31 16:54 | disposition home or self-care (01) | DRG 280 ==
LOC: ER 16:15 → OVERFLOW 07-30 00:51 → WEST WING 07-30 00:51
PROVIDERS: ADMIT Internal Medicine Geriatric Medicine; ATTEND Emergency Medicine
PROC: 0W9G3ZZ Drainage of Peritoneal Cavity, Percutaneous Approach (ICD-10-PCS; principal; 2024-07-30)
DX: K70.31 Alcoholic cirrhosis of liver with ascites (principal); D75.89 Other specified diseases of blood and blood-forming organs; F10.10 Alcohol abuse, uncomplicated; F41.9 Anxiety disorder, unspecified; F32.A Depression, unspecified; K80.20 Calculus of gallbladder without cholecystitis without obstruction; K42.9 Umbilical hernia without obstruction or gangrene; F10.139 Alcohol abuse with withdrawal, unspecified; E80.6 Other disorders of bilirubin metabolism; I10 Essential (primary) hypertension; R74.01 Elevation of levels of liver transaminase levels; Y90.9 Presence of alcohol in blood, level not specified; Z79.899 Other long term (current) drug therapy
CPT/HCPCS: 36415; 49083; 71046; 74176; 76705; 76942; 80048; 80053; 80076; 80307; 80320; 81001; 82140; 82306; 82607; 82746; 83036; 83605; 83615; 83690; 83735; 83986; 84100; 84443; 85025; 85610; 85730; 86704; 86706; 86708; 86803; 87077; 87186; 87205; 87340; 89051; G0378

== ENCOUNTER 2024-08-21 08:06 | Emergency (ER) | payer MEDICAID ==
[~2024-08-21] VITALS: Ht 165.1 cm; Wt 83.6 kg
[~2024-08-21 08:06] MED LIST changes: +ACAM1TAB PO; +FOLI-119 PO; +FURO1TAB31 PO; +MAGN400T40 OR; +OMEP1CAP70 PO; -PANT40TA2 PO; +POTA-180 PO; +SPIR100T PO; +THIA100T10 PO
[2024-08-21 08:46] VITALS: BP 142/79; PULSE 72; RESP 18; TEMP 98.9; O2SAT 98
[2024-08-21] MEDS: LIDOCAINE 1% HCL (LOCAL ANESTH.) INJ 20ML MDV IJ ONE (09:05)
[2024-08-21] MEDS: cefTRIAXone SOD 1,000 MG VL IM ONE (09:15)
[2024-08-21] MEDS ORDERED: BACDST PO (09:25)
[2024-08-21] MEDS ORDERED: NAPR-746 PO (09:25)
== END 2024-08-21 09:41 | disposition home or self-care (01) ==
LOC: ER 08:06
DX: N49.2 Inflammatory disorders of scrotum (principal); I10 Essential (primary) hypertension; F41.9 Anxiety disorder, unspecified; F32.A Depression, unspecified; K74.60 Unspecified cirrhosis of liver; Z79.899 Other long term (current) drug therapy; Z98.890 Other specified postprocedural states
CPT/HCPCS: 55100; 87070; 87075; 87076; 99284; J0696; J2003

== ENCOUNTER 2024-08-23 09:32 | Emergency (ER) | payer MEDICAID ==
[~2024-08-23] VITALS: Ht 165.1 cm; Wt 83.9 kg
[~2024-08-23 09:32] MED LIST changes: +BACDST PO; +NAPR-746 PO
[2024-08-23 10:07] VITALS: BP 128/75; PULSE 71; RESP 18; TEMP 98.6; O2SAT 99
== END 2024-08-23 10:49 | disposition home or self-care (01) ==
LOC: ER 09:32
DX: N45.4 Abscess of epididymis or testis (principal); I10 Essential (primary) hypertension; F41.9 Anxiety disorder, unspecified; F32.9 Major depressive disorder, single episode, unspecified; F10.90 Alcohol use, unspecified, uncomplicated; Z48.01 Encounter for change or removal of surgical wound dressing; Z98.890 Other specified postprocedural states; Z79.899 Other long term (current) drug therapy; Y90.0 Blood alcohol level of less than 20 mg/100 ml

== ENCOUNTER 2024-08-25 09:17 | Emergency (ER) | payer MEDICAID ==
[~2024-08-25] VITALS: Ht 165.1 cm; Wt 83.1 kg
[2024-08-25 10:30] VITALS: BP 122/72; PULSE 74; RESP 17; TEMP 98.4; O2SAT 97
== END 2024-08-25 11:04 | disposition home or self-care (01) ==
LOC: ER 09:17
DX: Z48.817 Encounter for surgical aftercare following surgery on the skin and subcutaneous tissue (principal); I10 Essential (primary) hypertension; Z79.899 Other long term (current) drug therapy; Z98.890 Other specified postprocedural states; Z87.442 Personal history of urinary calculi

== ENCOUNTER 2024-08-27 08:44 | Emergency (ER) | payer MEDICAID ==
[~2024-08-27] VITALS: Ht 165.1 cm; Wt 85.0 kg
[2024-08-27 09:10] VITALS: BP 116/72; PULSE 76; RESP 18; TEMP 97.9; O2SAT 98
== END 2024-08-27 09:39 | disposition home or self-care (01) ==
LOC: ER 08:44
DX: L02.214 Cutaneous abscess of groin (principal); I10 Essential (primary) hypertension; F41.9 Anxiety disorder, unspecified; F32.9 Major depressive disorder, single episode, unspecified; F10.90 Alcohol use, unspecified, uncomplicated; Z48.01 Encounter for change or removal of surgical wound dressing; Z98.890 Other specified postprocedural states; Z79.899 Other long term (current) drug therapy; Y90.0 Blood alcohol level of less than 20 mg/100 ml

== ENCOUNTER 2024-08-29 09:08 | Emergency (ER) | payer MEDICAID ==
[~2024-08-29] VITALS: Ht 165.1 cm; Wt 80.9 kg
[2024-08-29 09:38] VITALS: BP 102/77; PULSE 78; RESP 20; TEMP 99.7; O2SAT 100
== END 2024-08-29 09:46 | disposition home or self-care (01) ==
LOC: ER 09:08
DX: Z48.00 Encounter for change or removal of nonsurgical wound dressing (principal); I10 Essential (primary) hypertension; F41.9 Anxiety disorder, unspecified; F32.A Depression, unspecified; Z79.899 Other long term (current) drug therapy; Z98.890 Other specified postprocedural states

== ENCOUNTER 2024-10-22 08:14 | Emergency (ER) | payer MEDICAID ==
[~2024-10-22] VITALS: Ht 165.1 cm; Wt 91.0 kg
--- NOTE | 2024-10-22 08:38 | ED.PDOC ---
GI ASSESSMENT HPI Comments 54 year old male presents to the ED with chief complaint of abdominal distention. Patient reports that he has liver cirrhosis and has been experiencing abdominal distention over the past few days. Patient relays that he has been without his water pill medication for the past week, unable to get a refill from his PCP. Patient states he last needed to be drained of fluid about 2 months ago. Patient denies any N/V/D, abdominal pain, dizziness, fever, chills, or SOB. Chief Complaint: Abdominal Pain Time Seen by MD: 08:35 Primary Care Provider: ? Reviewed Notes: Nurses Notes, Medications, Allergies Allergies: Coded Allergies: NO KNOWN ALLERGIES (Unverified , 03/12/20) Home Meds Active Scripts Naproxen (Naproxen) 500 Mg Tab, 500 MG PO BID, #30 TAB Prov:JIMBO ALEXANDER 08/21/24 Sulfamethoxazole W/Trimethopri (Bactrim Ds Tablet) 1 Tab Tb, 1 TAB PO BID for 10 Days, #20 TAB Prov:JIMBO ALEXANDER 08/21/24 Magnesium Oxide (MAGNESIUM OXIDE) 400 Mg Tab, 400 MG OR DAILY for 30 Days, #30 TAB Prov:PORSCHE CROWE RESIDENT 07/31/24 Potassium Chloride (Potassium Chloride ER) 20 Meq Tab, 20 MEQ PO DAILY for 30 Days, #30 TAB Prov:PORSCHE CROWE [facility] 07/31/24 Furosemide (Lasix) 40 Mg Tab, 40 MG PO DAILY for 30 Days, #30 TAB Prov:PORSCHE CROWE [facility] 07/31/24 Spironolactone (Aldactone) 100 Mg Tab, 100 MG PO DAILY for 30 Days, #30 TAB 2 Refills Prov:PORSCHE CROWE RESIDENT 07/31/24 Multiple Vitamin (Multivitamins) Tab, 1 TAB PO DAILY for 90 Days, #90 TAB 0 Refills Prov:SALCANDYONENITALESLIE PRINT PROJECT MANAGER 04/06/24 Lactulose (Enulose) 10 Gm/15 Ml Sharon, 30 ML PO DAILY for 30 Days, #473 ML Prov:SALNENITA MONTANOOLPH PRINT PROJECT MANAGER 04/06/24 Sucralfate (CARAFATE) 1 Gm Tab, 1 GM OR QID for 30 Days, #120 TAB Prov:NENITA MULLIGANOLPH PRINT PROJECT MANAGER 04/06/24 Lisinopril (Lisinopril) 20 Mg Tab, 1 TAB PO DAILYPRN for 60 Days, #60 TAB Prov:ANUJ MULLIGAN PRINT PROJECT MANAGER 04/06/24 Propranolol HCl (Propranolol Hydrochloride) 20 Mg Tab, 1 TAB PO BID for 60 Days, #120 TAB Prov:ANUJ MULLIGAN PRINT PROJECT MANAGER 04/06/24 Furosemide (Furosemide) 40 Mg Tab, 40 MG PO DAILY for 60 Days, #60 TAB Prov:ANUJ MULLIGAN PRINT PROJECT MANAGER 04/06/24 Reported Medications Acamprosate Calcium (ACAMPROSATE CALCIUM DR) 333 Mg Tab, 333 MG PO QID, TAB 07/31/24 Folic Acid (Folic Acid) 1 Mg Tab, 1 MG PO DAILY, TAB 07/31/24 Thiamine Hcl (VITAMIN B-1) 100 Mg Tb, 100 MG PO DAILY, TAB 07/31/24 Omeprazole (Omeprazole Dr) 20 Mg Cap, 20 MG PO DAILY, CAP 07/31/24 Information Source: Patient Mode of Arrival: Ambulatory Timing: Days Duration: Since onset Prehospital treatment: None Quality: None Vomitus: None Stool: Normal Severity: Moderate Recent: None Recent Hx of: Liver Disease Past Medical History PAST MEDICAL HISTORY: Anxiety, Depression, HTN, Kidney Stones, Liver Surgical History: Hernia Repair Family History Family History: Reviewed,noncontributory to illness, Family hx of Cancer Social History Smoker: Non-Smoker Alcohol: Heavy, Sober Drugs: Denies Drug Use Lives In: Home Constitutional: denies: chills, diaphoresis, fatigue, fever, malaise, sweats, weakness, others EENTM: denies: blurred vision, double vision, ear bleeding, ear discharge, ear drainage, ear pain, ear ringing, eye pain, eye redness, hearing loss, mouth pain, mouth swelling, nasal discharge, nose bleeding, nose congestion, nose pain, photophobia, tearing, throat pain, throat swelling, voice changes, others Respiratory: denies: cough, hemoptysis, orthopnea, SOB at rest, shortness of breath, SOB with excertion, stridor, wheezing, others Cardiovascular: denies: chest pain, dizzy spells, diaphoresis, Dyspnea on exertion, edema, irregular heart beat, left arm pain, lightheadedness, palpitations, PND, syncope, others Gastrointestinal: reports: abdomen distended; denies: abdominal pain, blood streaked bowels, constipated, diarrhea, dysphagia, difficulty swallowing, hematemesis, melena, nausea, poor appetite, poor fluid intake, rectal bleeding, rectal pain, vomiting, others Genitourinary: denies: burning, dysuria, flank pain, frequency, hematuria, incontinence, penile discharge, penile sore, pain, testicle pain, testicle swelling, urgency, others Neurological: denies: dizziness, fainting, headache, left sided numbness, left sided weakness, numbness, paresthesia, pre-existing deficit, right sided numbness, right sided weakness, seizure, speech problems, tingling, tremors, weakness, others Musculoskeletal: denies: back pain, gout, joint pain, joint swelling, muscle pain, muscle stiffness, neck pain, others Integumetry: denies: bruises, change in color, change in hair/nails, dryness, laceration, lesions, lumps, rash, wounds, others Allergic/Immunocompromised: denies: Difficulty Healing, Frequent Infections, Hives, Itching, others Hematologic/Lymphatic: denies: anemia, blood clots, easy bleeding, easy bruising, swollen glands, others Endocrine: denies: excessive hunger, excessive sweating, excessive thirst, excessive urination, flushing, intolerance to cold, intolerance to heat, unexplained weight gain, unexplained weight loss, others Psychiatric: denies: anxiety, bipolar disorder, depression, hopeless, panic disorder, schizophrenia, sleepless, suicidal, others All Other Systems: Reviewed and Negative Physical Exam General Appearance: Moderate Distress, Normal HEENT: Normal ENT Inspection, PERRL/EOMI, Scleral Icterus (L), Scleral Icterus (R) Neck: Full Range of Motion, Non-Tender, Normal, Normal Inspection Respiratory: Chest Non-Tender, Lungs Clear, No Accessory Muscle Use, No Respira tory Distress, Normal Breath Sounds Cardiovascular: No Edema, No JVD, No Murmur, No Gallop, Normal Peripheral Pulses, Regular Rate/Rhythm Breast Exam: Deferred Gastrointestinal: Distended, No Organomegaly, Non Tender, No Pulsatile Mass, Normal Bowel Sounds Genitalia: Deferred Pelvic: Deferred Rectal: Deferred Extremities: No calf tenderness, Normal capillary refill, Normal inspection, Normal range of motion, Non-tender, No pedal edema Musculoskeletal : Apperance: Normal Neurologic: Alert, school age program teacher II-XII nml as Tested, No Motor Deficits, Normal Affect, Normal Mood, No Sensory Deficits Cerebellar Function: Normal Reflexes: Normal Skin: Dry, Normal Color, Warm Peripheral Pulses: 3+ Radial (R), 3+ Radial (L) Lymphatic: No Adenopathy Was a procedure done? Was a procedure done?: No GI differential Dx Differential Diagnosis: Diverticular disease, Esophagitis, Gastritis/PUD, Gastroenteritis X-Ray, Labs, Meds, VS Vital Signs Date Time Temp Pulse Resp B/P (MAP) Pulse Ox O2 Delivery O2 Flow Rate FiO2 10/22/24 08:34 98.5 82 16 116/75 (89) 99 Patient alert. Abdominal distention. Continues to drink alcohol. Vitals stable. Abdomen is distended. Sclerae icterus. Liver cirrhosis. It has been few months since he had paracentesis. Reviewed his previous visit. Explained to the patient. Continue cardiac monitoring. Time of 1ST Reevaluation: 09:35 Reevaluation 1ST: Unchanged Patient Education/Counseling: Diagnosis, Treatment Family Education/Counseling: No Family Present Departure 1 Departure Time of Disposition: 09:14 Impression: Primary Impression: Alcoholic cirrhosis of liver with ascites Disposition: ADMITTED INPATIENT Admit to: Med Surg Condition: Guarded Critical Care Note Critical Care Time?: Yes (45 min-critical care time only) Stability Stability form required: No Heart Score Heart Score: Heart Score Response (Comments) Value History N/A 0 EKG N/A 0 Age N/A 0 Risk Factors N/A 0 Troponin N/A 0 Total 0 I personally scribed for JUN BRYANT MD ([email or web address]) on 10/22/24 at 08:38. Electronically submitted by Raj Fuentes ([email or web address]). JUN BRYANT MD Oct 22, 2024 08:38
[2024-10-22 10:12] LABS: Hemoglobin 13.7 g/dL (13.5-17.5); White Blood Cell 4.3 10^3/uL (4.4-10.8)
[2024-10-22 10:14] LABS: Hematocrit 39.6 % (41.0-53.0); Mean Corpuscular Hemoglobin 38.3 pg (28.0-32.0); Mean Corpuscular Hgb Conc. 34.5 g/dL (32.0-36.0); Mean Corpuscular Volume 111.1 fL (80.0-100.0); Platelet Count (auto) 131 10^3/uL (140-450); Red Blood Cells 3.56 10^6/uL (4.5-5.90); Red Cell Distribution Width 15.3 % (11.8-14.3)
[2024-10-22 10:15] LABS: Potassium 4.9 mmol/L (3.5-5.1); Sodium 138 mmol/L (136-145)
[2024-10-22 10:16] LABS: Anion Gap 4 (5-15); Carbon Dioxide 25 mmol/L (20-31)
[2024-10-22 10:17] LABS: Calcium 9.1 mg/dL (8.7-10.4)
[2024-10-22 10:21] LABS: BUN/Creatinine Ratio 10.2 (10.0-20.0); Glucose 97 mg/dL (74-106)
[2024-10-22 10:26] LABS: Band Neutrophils % (manual) 0; Basophils % (manual) 0 (0.0-2.0); Blast Cells 0; Metamyelocytes % 0; Myelocytes % 0; Promyelocytes % 0; Reactive Lymphocytes 0
[2024-10-22 10:40] LABS: Blood Urea Nitrogen 9 mg/dL (9-23); Chloride 109 mmol/L (98-107)
[2024-10-22 10:41] LABS: Anisocytosis Slight; Eosinophils % (manual) 1 (0-7); Lymphocytes % (manual) 12 (10.0-50.0); Macrocytosis Slight; Monocytes % (manual) 23 (0-12); Platelet Estimate Decreased
[2024-10-22 11:12] LABS: INR 1.41 (0.9-1.15); Partial Thromboplastin Time 28.1 SEC (24.5-34.5); Prothrombin Time 14.6 sec (9.3-11.8)
[2024-10-22 12:10] VITALS: BP 143/80; PULSE 74; RESP 16; TEMP 98.1; O2SAT 99
[2024-10-22] MEDS ORDERED: SPIR100T4 PO (22:39)
== END 2024-10-22 12:22 | disposition left against medical advice (07) ==
LOC: ER 08:20
DX: K70.31 Alcoholic cirrhosis of liver with ascites (principal); I10 Essential (primary) hypertension; F41.9 Anxiety disorder, unspecified; F32.9 Major depressive disorder, single episode, unspecified; F10.90 Alcohol use, unspecified, uncomplicated; Z98.890 Other specified postprocedural states; Z79.899 Other long term (current) drug therapy; Y90.0 Blood alcohol level of less than 20 mg/100 ml
CPT/HCPCS: 36415; 80048; 85007; 85027; 85610; 85730

== ENCOUNTER 2024-10-22 22:18 | Emergency (ER) | payer MEDICAID ==
[~2024-10-22] VITALS: Ht 167.6 cm; Wt 92.7 kg
[2024-10-22] MEDS ORDERED: SPIR100T4 PO (22:39)
--- NOTE | 2024-10-22 22:47 | ED.PDOC ---
GI ASSESSMENT HPI Comments 54-year-old male who came to ER for abdominal pain. Patient does have history of alcoholic liver cirrhosis with ascites. Patient was seen here earlier today, for similar complaints of abdominal pain and distention, was advised admission for paracentesis, however patient decided to sign AMA. Paracentesis was not done. Patient coming back today still with abdominal pain and distention, with protruding umbilical hernia. Chief Complaint: Abdominal Pain Time Seen by MD: 22:46 Primary Care Provider: ? Reviewed Notes: Nurses Notes Allergies: Coded Allergies: NO KNOWN ALLERGIES (Unverified , 03/12/20) Home Meds Active Scripts Spironolactone (Spironolactone) 100 Mg Tab, 1 TAB PO DAILY for 90 Days, #90 TAB 3 Refills Prov:ALCIDES SIMON MD 10/22/24 Naproxen (Naproxen) 500 Mg Tab, 500 MG PO BID, #30 TAB Prov:JIMBO ALEXANDER 08/21/24 Sulfamethoxazole W/Trimethopri (Bactrim Ds Tablet) 1 Tab Tb, 1 TAB PO BID for 10 Days, #20 TAB Prov:JIMBO ALEXANDER 08/21/24 Magnesium Oxide (MAGNESIUM OXIDE) 400 Mg Tab, 400 MG OR DAILY for 30 Days, #30 TAB Prov:PORSCHE CROWE RESIDENT 07/31/24 Potassium Chloride (Potassium Chloride ER) 20 Meq Tab, 20 MEQ PO DAILY for 30 Days, #30 TAB Prov:PORSCHE CROWE RESIDENT 07/31/24 Furosemide (Lasix) 40 Mg Tab, 40 MG PO DAILY for 30 Days, #30 TAB Prov:PORSCHE CROWE RESIDENT 07/31/24 Spironolactone (Aldactone) 100 Mg Tab, 100 MG PO DAILY for 30 Days, #30 TAB 2 Refills Prov:PORSCHE CROWE RESIDENT 07/31/24 Multiple Vitamin (Multivitamins) Tab, 1 TAB PO DAILY for 90 Days, #90 TAB 0 Refills Prov:ANUJ MULLIGAN GREEN END DEPARTMENT SUPERVISOR 04/06/24 Lactulose (Enulose) 10 Gm/15 Ml Sharon, 30 ML PO DAILY for 30 Days, #473 ML Prov:ANUJ MULLIGAN GREEN END DEPARTMENT SUPERVISOR 04/06/24 Sucralfate (CARAFATE) 1 Gm Tab, 1 GM OR QID for 30 Days, #120 TAB Prov:SALBINO,LESLIE GREEN END DEPARTMENT SUPERVISOR 04/06/24 Lisinopril (Lisinopril) 20 Mg Tab, 1 TAB PO DAILYPRN for 60 Days, #60 TAB Prov:ANUJ MULLIGAN GREEN END DEPARTMENT SUPERVISOR 04/06/24 Propranolol HCl (Propranolol Hydrochloride) 20 Mg Tab, 1 TAB PO BID for 60 Days, #120 TAB Prov:ANUJ MULLIGAN GREEN END DEPARTMENT SUPERVISOR 04/06/24 Furosemide (Furosemide) 40 Mg Tab, 40 MG PO DAILY for 60 Days, #60 TAB Prov:ANUJ MULLIGAN GREEN END DEPARTMENT SUPERVISOR 04/06/24 Reported Medications Acamprosate Calcium (ACAMPROSATE CALCIUM DR) 333 Mg Tab, 333 MG PO QID, TAB 07/31/24 Folic Acid (Folic Acid) 1 Mg Tab, 1 MG PO DAILY, TAB 07/31/24 Thiamine Hcl (VITAMIN B-1) 100 Mg Tb, 100 MG PO DAILY, TAB 07/31/24 Omeprazole (Omeprazole Dr) 20 Mg Cap, 20 MG PO DAILY, CAP 07/31/24 Information Source: Patient Mode of Arrival: Ambulatory Timing: Hours Duration: Since onset Prehospital treatment: None Quality: Aching Vomitus: None Stool: Normal Severity: Moderate Recent Hx of: Liver Disease Pain Location: Periumbilical Modifying Factors: Nothing Associated sign and symptoms: Abdominal Pain Past Medical History PAST MEDICAL HISTORY: Anxiety, Depression, HTN, Kidney Stones, Liver Surgical History: Hernia Repair Family History Family History: Reviewed,noncontributory to illness, Family hx of Cancer Social History Smoker: Non-Smoker Alcohol: Heavy Drugs: Denies Drug Use Lives In: Home Constitutional: denies: chills, diaphoresis, fatigue, fever, malaise, sweats, weakness, others EENTM: denies: blurred vision, double vision, ear bleeding, ear discharge, ear drainage, ear pain, ear ringing, eye pain, eye redness, hearing loss, mouth pain, mouth swelling, nasal discharge, nose bleeding, nose congestion, nose pain, photophobia, tearing, throat pain, throat swelling, voice changes, others Respiratory: denies: cough, hemoptysis, orthopnea, SOB at rest, shortness of breath, SOB with excertion, stridor, wheezing, others Cardiovascular: denies: chest pain, dizzy spells, diaphoresis, Dyspnea on exertion, edema, irregular heart beat, left arm pain, lightheadedness, palpitations, PND, syncope, others Gastrointestinal: reports: abdomen distended, abdominal pain; denies: blood streaked bowels, constipated, diarrhea, dysphagia, difficulty swallowing, hematemesis, melena, nausea, poor appetite, poor fluid intake, rectal bleeding, rectal pain, vomiting, others Genitourinary: denies: burning, dysuria, flank pain, frequency, hematuria, incontinence, penile discharge, penile sore, pain, testicle pain, testicle swelling, urgency, others Neurological: denies: dizziness, fainting, headache, left sided numbness, left sided weakness, numbness, paresthesia, pre-existing deficit, right sided numbness, right sided weakness, seizure, speech problems, tingling, tremors, weakness, others Musculoskeletal: denies: back pain, gout, joint pain, joint swelling, muscle pain, muscle stiffness, neck pain, others Integumetry: denies: bruises, change in color, change in hair/nails, dryness, laceration, lesions, lumps, rash, wounds, others Allergic/Immunocompromised: denies: Difficulty Healing, Frequent Infections, Hives, Itching, others Hematologic/Lymphatic: denies: anemia, blood clots, easy bleeding, easy bruising, swollen glands, others Endocrine: denies: excessive hunger, excessive sweating, excessive thirst, excessive urination, flushing, intolerance to cold, intolerance to heat, unexplained weight gain, unexplained weight loss, others Psychiatric: denies: anxiety, bipolar disorder, depression, hopeless, panic disorder, schizophrenia, sleepless, suicidal, others Physical Exam General Appearance: No Apparent Distress, Normal HEENT: Normal ENT Inspection, Pharynx Normal, TMs Normal Neck: Full Range of Motion, Non-Tender, Normal, Normal Inspection Respiratory: Chest Non-Tender, Lungs Clear, No Accessory Muscle Use, No Respiratory Distress, Normal Breath Sounds Cardiovascular: No Edema, No JVD, No Murmur, No Gallop, Normal Peripheral Pulses, Regular Rate/Rhythm Breast Exam: Deferred Gastrointestinal: No Organomegaly, Non Tender, No Pulsatile Mass, Normal Bowel Sounds, Soft Genitalia: Deferred Pelvic: Deferred Rectal: Deferred Extremities: No calf tenderness, Normal capillary refill, Normal inspection, Normal range of motion, Non-tender, No pedal edema Musculoskeletal : Apperance: Normal Neurologic: Alert, single needle operator II-XII nml as Tested, No Motor Deficits, Normal Affect, Normal Mood, No Sensory Deficits Cerebellar Function: Normal Reflexes: Normal Skin: Dry, Normal Color, Warm Lymphatic: No Adenopathy Was a procedure done? Was a procedure done?: No GI differential Dx Differential Diagnosis: Bowel Obstruction, Gastritis/PUD, Gastroenteritis, Hernia, Hepatitis, Other (Liver cirrhosis) X-Ray, Labs, Meds, VS Vital Signs Date Time Temp Pulse Resp B/P (MAP) Pulse Ox O2 Delivery O2 Flow Rate FiO2 10/22/24 22:39 99.5 79 18 154/81 (105) 99 Time of 1ST Reevaluation: 22:44 Reevaluation 1ST: Unchanged Time of 2ND Reevaluation: 23:00 Reevaluation 2ND: Improved Patient Education/Counseling: Diagnosis, Treatment Family Education/Counseling: No Family Present Departure 1 Departure Time of Disposition: 23:00 Impression: Primary Impression: Abdominal ascites Additional Impression: Cirrhosis of liver Disposition: 01 HOME / SELF CARE / HOMELESS Condition: Stable Additional Instructions: Follow up with your primary physician Return to the ED for any worsening symptoms or concerns e-Prescriptions Spironolactone (Spironolactone) 100 Mg Tab 1 TAB PO DAILY for 90 Days, #90 TAB 3 Refills Prov: ALCIDES SIMON MD 10/22/24 Discharged With: Self Critical Care Note Critical Care Time?: No Stability Stability form required: No Heart Score Heart Score: Heart Score Response (Comments) Value History N/A 0 EKG N/A 0 Age N/A 0 Risk Factors N/A 0 Troponin N/A 0 Total 0 I personally scribed for ALCIDES SIMON MD ([email or web address]) on 10/22/24 at 22:47. Electronically submitted by Sathya Whitaker ([email or web address]). ALCIDES SIMON MD Oct 22, 2024 22:47
[2024-10-23] MEDS: SPIRONOLACTONE 25 MG TAB PO ONE (03:48)
[2024-10-23 03:51] VITALS: BP 142/82; PULSE 67; RESP 19; TEMP 98; O2SAT 100
== END 2024-10-23 04:00 | disposition home or self-care (01) ==
LOC: ER 22:18
DX: K74.60 Unspecified cirrhosis of liver (principal); R18.8 Other ascites; I10 Essential (primary) hypertension; F41.9 Anxiety disorder, unspecified; F32.9 Major depressive disorder, single episode, unspecified; F10.90 Alcohol use, unspecified, uncomplicated; Z98.890 Other specified postprocedural states; Z79.899 Other long term (current) drug therapy; Y90.0 Blood alcohol level of less than 20 mg/100 ml

== ENCOUNTER 2024-11-25 11:35 | Inpatient (IN) | payer MEDICAID ==
[~2024-11-25] VITALS: Ht 165.1 cm; Wt 89.1 kg
[~2024-11-25 11:35] MED LIST changes: +SPIR100T4 PO
--- NOTE | 2024-11-25 11:54 | ED.PDOC ---
GI ASSESSMENT HPI Comments 54 y/o M with PMHX of liver cirrhosis presents to the ED for CC of abdominal distension. Patient states that he has been experiencing abdominal distension with associated cough and abdominal discomfort x months. Patient relays, that discomfort is unbearable and worsens at night waking him up from his sleep. Patient drinks heavily, denies smoking tobacco, or illicit drugs. Patient denies fever, chills, headache, body-aches, or N/V/D. No other symptoms or modifying factors at this time. Time Seen by MD: 11:45 Primary Care Provider: ? Reviewed Notes: Nurses Notes, Medications, Allergies Allergies: Coded Allergies: NO KNOWN ALLERGIES (Unverified , 03/12/20) Home Meds Active Scripts Spironolactone (Spironolactone) 100 Mg Tab, 1 TAB PO DAILY for 90 Days, #90 TAB 3 Refills Prov:ALCIDES SIMON MD 10/22/24 Naproxen (Naproxen) 500 Mg Tab, 500 MG PO BID, #30 TAB Prov:JIMBO ALEXANDER 08/21/24 Sulfamethoxazole W/Trimethopri (Bactrim Ds Tablet) 1 Tab Tb, 1 TAB PO BID for 10 Days, #20 TAB Prov:JIMBO ALEXANDER 08/21/24 Magnesium Oxide (MAGNESIUM OXIDE) 400 Mg Tab, 400 MG OR DAILY for 30 Days, #30 TAB Prov:PORSCHE CROWE RESIDENT 07/31/24 Potassium Chloride (Potassium Chloride ER) 20 Meq Tab, 20 MEQ PO DAILY for 30 Days, #30 TAB Prov:PORSCHE CROWE RESIDENT 07/31/24 Furosemide (Lasix) 40 Mg Tab, 40 MG PO DAILY for 30 Days, #30 TAB Prov:PORSCHE CROWE RESIDENT 07/31/24 Spironolactone (Aldactone) 100 Mg Tab, 100 MG PO DAILY for 30 Days, #30 TAB 2 Refills Prov:PORSCHE CROWE 07/31/24 Multiple Vitamin (Multivitamins) Tab, 1 TAB PO DAILY for 90 Days, #90 TAB 0 Refills Prov:ANUJ MULLIGAN [employer] 04/06/24 Lactulose (Enulose) 10 Gm/15 Ml [place], 30 ML PO DAILY for 30 Days, #473 ML Prov:ANUJ MULLIGAN [employer] 04/06/24 Sucralfate (CARAFATE) 1 Gm Tab, 1 GM OR QID for 30 Days, #120 TAB Prov:ANUJ MULLIGAN [employer] 04/06/24 Lisinopril (Lisinopril) 20 Mg Tab, 1 TAB PO DAILYPRN for 60 Days, #60 TAB Prov:ANUJ MULLIGAN [employer] 04/06/24 Propranolol HCl (Propranolol Hydrochloride) 20 Mg Tab, 1 TAB PO BID for 60 Days, #120 TAB Prov:ANUJ MULLIGAN [employer] 04/06/24 Furosemide (Furosemide) 40 Mg Tab, 40 MG PO DAILY for 60 Days, #60 TAB Prov:ANUJ MULLIGAN [employer] 04/06/24 Reported Medications Acamprosate Calcium (ACAMPROSATE CALCIUM DR) 333 Mg Tab, 333 MG PO QID, TAB 07/31/24 Folic Acid (Folic Acid) 1 Mg Tab, 1 MG PO DAILY, TAB 07/31/24 Thiamine Hcl (VITAMIN B-1) 100 Mg Tb, 100 MG PO DAILY, TAB 07/31/24 Omeprazole (Omeprazole Dr) 20 Mg Cap, 20 MG PO DAILY, CAP 07/31/24 Information Source: Patient Mode of Arrival: Ambulatory Timing: Months Duration: Since onset Prehospital treatment: None Quality: None Vomitus: None Stool: Normal Severity: Moderate Recent: None Recent Hx of: None Pain Location: Diffuse Modifying Factors: Nothing Associated sign and symptoms: None Past Medical History PAST MEDICAL HISTORY: Anxiety, Depression, HTN, Kidney Stones, Liver Surgical History: Hernia Repair Family History Family History: Reviewed,noncontributory to illness, Family hx of Cancer Social History Smoker: Non-Smoker Alcohol: Heavy Drugs: Denies Drug Use Lives In: Home Constitutional: denies: chills, diaphoresis, fatigue, fever, malaise, sweats, weakness, others EENTM: denies: blurred vision, double vision, ear bleeding, ear discharge, ear drainage, ear pain, ear ringing, eye pain, eye redness, hearing loss, mouth pain, mouth swelling, nasal discharge, nose bleeding, nose congestion, nose pain, photophobia, tearing, throat pain, throat swelling, voice changes, others Respiratory: reports: cough; denies: hemoptysis, orthopnea, SOB at rest, shortness of breath, SOB with excertion, stridor, wheezing, others Cardiovascular: denies: chest pain, dizzy spells, diaphoresis, Dyspnea on exertion, edema, irregular heart beat, left arm pain, lightheadedness, palpitations, PND, syncope, others Gastrointestinal: reports: abdomen distended, abdominal pain; denies: blood streaked bowels, constipated, diarrhea, dysphagia, difficulty swallowing, hematemesis, melena, nausea, poor appetite, poor fluid intake, rectal bleeding, rectal pain, vomiting, others Genitourinary: denies: burning, dysuria, flank pain, frequency, hematuria, incontinence, penile discharge, penile sore, pain, testicle pain, testicle swelling, urgency, others Neurological: denies: dizziness, fainting, headache, left sided numbness, left sided weakness, numbness, paresthesia, pre-existing deficit, right sided numbness, right sided weakness, seizure, speech problems, tingling, tremors, weakness, others Musculoskeletal: denies: back pain, gout, joint pain, joint swelling, muscle pain, muscle stiffness, neck pain, others Integumetry: denies: bruises, change in color, change in hair/nails, dryness, laceration, lesions, lumps, rash, wounds, others Allergic/Immunocompromised: denies: Difficulty Healing, Frequent Infections, Hives, Itching, others Hematologic/Lymphatic: denies: anemia, blood clots, easy bleeding, easy bruising, swollen glands, others Endocrine: denies: excessive hunger, excessive sweating, excessive thirst, excessive urination, flushing, intolerance to cold, intolerance to heat, unexplained weight gain, unexplained weight loss, others Psychiatric: denies: anxiety, bipolar disorder, depression, hopeless, panic disorder, schizophrenia, sleepless, suicidal, others All Other Systems: Reviewed and Negative Physical Exam General Appearance: Moderate Distress HEENT: Normal ENT Inspection, Pharynx Normal, TMs Normal Neck: Full Range of Motion, Non-Tender, Normal, Normal Inspection Respiratory: Chest Non-Tender, Lungs Clear, No Accessory Muscle Use, No Respiratory Distress, Normal Breath Sounds Cardiovascular: No Edema, No JVD, No Murmur, No Gallop, Normal Peripheral Pul ses, Regular Rate/Rhythm Breast Exam: Deferred Gastrointestinal: Distended, Hepatomegaly, Non Tender, No Pulsatile Mass, Normal Bowel Sounds Genitalia: Deferred Pelvic: Deferred Rectal: Deferred Extremities: No calf tenderness, Normal capillary refill, Pedal edema Musculoskeletal : Apperance: Normal Neurologic: Alert, homeworker II-XII nml as Tested, Motor Weakness, Normal Affect, Normal Mood, No Sensory Deficits Cerebellar Function: Normal Reflexes: Normal Skin: Dry, Normal Color, Warm Lymphatic: No Adenopathy EKG EKG : Pulse Rate (adult): 134 [place]: Normal Cardiac Rhythm: ST Block: None Hypertrophy: None ST: Normal Was a procedure done? Was a procedure done?: No GI differential Dx Differential Diagnosis: Gastritis/PUD, Gastroenteritis, Electrolyte Imbalance, Food Poisoning, Bacterial, Viral X-Ray, Labs, Meds, VS Vital Signs Date Time Temp Pulse Resp B/P (MAP) Pulse Ox O2 Delivery O2 Flow Rate FiO2 11/25/24 12:11 134 11/25/24 12:03 98.5 139 20 168/95 (119) 99 Lab Test 11/25/24 11:54 Range/Units White Blood Count 3.0 L 4.4-10.8 10^3/uL Red Blood Count 4.34 L 4.5-5.90 10^6/uL Hemoglobin 16.1 13.5-17.5 g/dL Hematocrit 45.3 41.0-53.0 % Mean Corpuscular Volume 104.4 H 80.0-100.0 fL Mean Corpuscular Hemoglobin 37.2 H 28.0-32.0 pg Mean Corpuscular Hemoglobin Concent 35.6 32.0-36.0 g/dL Red Cell Distribution Width 13.6 11.8-14.3 % Platelet Count 118 L 140-450 10^3/uL Mean Platelet Volume 6.5 L 6.9-10.8 fL Neutrophils (%) (Auto) 68.3 37.0-80.0 % Lymphocytes (%) (Auto) 18.2 10.0-50.0 % Monocytes (%) (Auto) 11.6 0.0-12.0 % Eosinophils (%) (Auto) 1.2 0.0-7.0 % Basophils (%) (Auto) 0.7 0.0-2.0 % Neutrophils # (Auto) 2.0 1.6-8.6 10 ^3/uL Lymphocytes # (Auto) 0.5 0.4-5.4 10 ^3/uL Monocytes # (Auto) 0.3 0-1.3 10 ^3/uL Eosinophils # (Auto) 0 0-0.8 10 ^3/uL Basophils # (Auto) 0 0-0.2 10 ^3/uL Nucleated Red Blood Cells 0.2 % Prothrombin Time 13.3 H 9.3-11.8 sec Prothrombin Time INR 1.29 H 0.9-1.15 Activated Partial Thromboplast Time 30.1 24.5-34.5 SEC Sodium Level 138 136-145 mmol/L Potassium Level 3.5 3.5-5.1 mmol/L Chloride Level 106 98-107 mmol/L Carbon Dioxide Level 24 20-31 mmol/L Anion Gap 8 5-15 Blood Urea Nitrogen < 5 L 9-23 mg/dL Creatinine 0.76 0.700-1.30 mg/dL Glomerular Filtration Rate Calc 107 >90 mL/min BUN/Creatinine Ratio 6.6 L 10.0-20.0 Serum Glucose 123 H 74-106 mg/dL Calcium Level 8.6 L 8.7-10.4 mg/dL Total Bilirubin 3.7 H 0.2-1.0 mg/dL Aspartate Amino Transferase (AST) 134 H 13-40 U/L Alanine Aminotransferase (ALT) 46 H 7-40 U/L Alkaline Phosphatase 113 46-116 U/L Ammonia 26 11-32 umol/L Total Protein 8.4 H 5.7-8.2 g/dL Albumin 3.3 3.2-4.8 g/dL Lipase 39 12-53 U/L Plasma/Serum Blood Alcohol 251.2 H <10 mg/dL CT ABD PEL: FINDINGS: Lung bases: Minimal atelectasis in the lung bases. Liver: Cirrhotic liver morphology with lobulated contour relative enlargement of the left hepatic lobe. Heterogeneous density of the liver. Limited evaluation for liver lesions on noncontrast enhanced exam. Biliary: Multiple calcified gallstones in the gallbladder. Spleen: Unremarkable. Pancreas: Grossly unremarkable in its noncontrast enhanced appearance. Adrenal glands: Unremarkable. No mass. Kidneys: No hydronephrosis. No renal or ureteral calculi. Aorta/Vascular: Scattered atherosclerotic calcification. No abdominal aortic aneurysm. Retroperitoneum: No mass or lymphadenopathy. Bowel/mesentery: No small bowel obstruction. Appendix is visualized and appears unremarkable. Moderate to large amount of abdominal and pelvic ascites. Edematous appearance of the omentum, likely due to the ascites, with no discrete omental masses visualized, similar in appearance compared to the prior CT. There are gastric and esophageal varices. Pelvic organs: Grossly unremarkable. Bladder: Unremarkable. No mass. Abdominal wall: Moderate sized umbilical hernia containing ascites, measuring up to 9 cm. Bones: No acute fracture or suspicious intraosseous lesion. IMPRESSION: 1. Cirrhotic liver morphology. 2. Moderate to large amount of abdominal and pelvic ascites. 3. Esophageal and gastric varices. 4. Umbilical hernia containing ascites. 5. Cholelithiasis. 6. Additional findings as detailed above. ATED BY: MANJEET SCHMITT DO DICTATED DATE/TIME: 11/25/241247 SIGNED BY: MANJEET SCHMITT DO SIGNED DATE/TIME: 11/25/241247 CC: The patient will be admitted to the hospitalist The patient has cholelithiasis as well as ascites from liver cirrhosis The patient's alcohol level is 251 The lipase is within normal limits The liver enzymes are elevated The CBC shows within normal limits The INR is 1.29 The patient was being admitted Images Reviewed?: Images reviewed and evaluated by me Time of 1ST Reevaluation: 12:25 Reevaluation 1ST: Unchanged Patient Education/Counseling: Diagnosis, Treatment, Prognosis Family Education/Counseling: No Family Present Departure 1 Departure Time of Disposition: 13:54 Impression: Primary Impression: Alcohol abuse Additional Impressions: Intractable abdominal pain Cholelithiasis Qualified Codes: K80.20 - Calculus of gallbladder without cholecystitis without obstruction Liver cirrhosis Qualified Codes: K70.31 - Alcoholic cirrhosis of liver with ascites Disposition: 09 ADMITTED INPATIENT Admit to: Med Surg Condition: Fair Critical Care Note Critical Care Time?: Yes (35 min-critical care time only) Stability Stability form required: Yes Unstable for transfer: Telemetry monitoring (Telemetry monitoring required), ED Physician Assesment (Clinical assesment) Heart Score Heart Score: Heart Score Response (Comments) Value History N/A 0 EKG N/A 0 Age N/A 0 Risk Factors N/A 0 Troponin N/A 0 Total 0 I personally scribed for RG BLOUNT MD ([email or web address]) on 11/25/24 at 11:54. Electronically submitted by Cara Joaquin ([email or web address]). I personally scribed for RG BLOUNT MD ([email or web address]) on 11/25/24 at 12:11. Electronically submitted by Cara Nuñez ([email or web address]). I personally scribed for RG BLOUNT MD ([email or web address]) on 11/25/24 at 12:57. Electronically submitted by Cara Nuñez [email or web address]). RG BLOUNT MD Nov 25, 2024 11:54
[2024-11-25 12:11] LABS: Basophils # (auto) 0 10 ^3/uL (0-0.2); Eosinophils # (auto) 0 10 ^3/uL (0-0.8); Eosinophils % (auto) 1.2 % (0.0-7.0); Lymphocytes # (auto) 0.5 10 ^3/uL (0.4-5.4); Mean Corpuscular Volume 104.4 fL (80.0-100.0); Red Cell Distribution Width 13.6 % (11.8-14.3)
[2024-11-25 12:13] LABS: Basophils % (auto) 0.7 % (0.0-2.0); Hematocrit 45.3 % (41.0-53.0); Hemoglobin 16.1 g/dL (13.5-17.5); Lymphocytes % (auto) 18.2 % (10.0-50.0); Mean Corpuscular Hemoglobin 37.2 pg (28.0-32.0); Mean Corpuscular Hgb Conc. 35.6 g/dL (32.0-36.0); Monocytes # (auto) 0.3 10 ^3/uL (0-1.3); Monocytes % (auto) 11.6 % (0.0-12.0); Neutrophils % (auto) 68.3 % (37.0-80.0); Nucleated Red Blood Cells % 0.2 %; Platelet Count (auto) 118 10^3/uL (140-450); Red Blood Cells 4.34 10^6/uL (4.5-5.90)
[2024-11-25 12:30] LABS: Albumin 3.3 g/dL (3.2-4.8); Alkaline Phosphatase 113 U/L (46-116); Anion Gap 8 (5-15); Carbon Dioxide 24 mmol/L (20-31); Chloride 106 mmol/L (98-107); Lipase 39 U/L (12-53); Potassium 3.5 mmol/L (3.5-5.1); Sodium 138 mmol/L (136-145)
[2024-11-25 12:36] LABS: INR 1.29 (0.9-1.15); Partial Thromboplastin Time 30.1 SEC (24.5-34.5); Prothrombin Time 13.3 sec (9.3-11.8)
[2024-11-25 12:43] LABS: Alanine Aminotransferase 46 U/L (7-40); Aspartate Aminotransferase 134 U/L (13-40); BUN/Creatinine Ratio 6.6 (10.0-20.0); Bilirubin, Total 3.7 mg/dL (0.2-1.0); Blood Urea Nitrogen < 5 mg/dL (9-23); Calcium 8.6 mg/dL (8.7-10.4); Glucose 123 mg/dL (74-106); Total Protein 8.4 g/dL (5.7-8.2)
--- NOTE | 2024-11-25 12:50 | DVH ---
CLINICAL INFORMATION: 54 years old, Male; pain. TECHNIQUE: Axial CT images of the abdomen and pelvis were obtained without IV contrast. Coronal and sagittal reformatted images were obtained, reviewed, and stored. Evaluation of the parenchymal organs is limited without IV contrast. Evaluation of the bowel and mesentery is limited without oral contra st. All CT scans at this medical facility are performed using dose modulation techniques as appropria te to a performed exam including the following: Automated exposure control was utilized; adjustment o f the MA and/or KV according to patient size; and use of iterative reconstruction technique. CTDIvol = 21.17, 0.07, 0.07 mGy DLP = 1293.08 mGy-cm COMPARISON: CT CT AB PEL WO CON-NO ORAL OR IV on DOS: 07/29/24, CT CT AB PEL WO CON-NO ORAL OR IV on D OS: 12/06/23, CT ABD PELVIS WO CONTRAST on DOS: 09/30/22 FINDINGS: Lung bases: Minimal atelectasis in the lung bases. Liver: Cirrhotic liver morphology with lobulated contour relative enlargement of the left hepatic lo be. Heterogeneous density of the liver. Limited evaluation for liver lesions on noncontrast enhanced exam. Biliary: Multiple calcified gallstones in the gallbladder. Spleen: Unremarkable. Pancreas: Grossly unremarkable in its noncontrast enhanced appearance. Adrenal glands: Unremarkable. No mass. Kidneys: No hydronephrosis. No renal or ureteral calculi. Aorta/Vascular: Scattered atherosclerotic calcification. No abdominal aortic aneurysm. Retroperitoneum: No mass or lymphadenopathy. Bowel/mesentery: No small bowel obstruction. Appendix is visualized and appears unremarkable. Modera te to large amount of abdominal and pelvic ascites. Edematous appearance of the omentum, likely due t o the ascites, with no discrete omental masses visualized, similar in appearance compared to the prio r CT. There are gastric and esophageal varices. Pelvic organs: Grossly unremarkable. Bladder: Unremarkable. No mass. Abdominal wall: Moderate sized umbilical hernia containing ascites, measuring up to 9 cm. Bones: No acute fracture or suspicious intraosseous lesion. IMPRESSION: 1. Cirrhotic liver morphology. 2. Moderate to large amount of abdominal and pelvic ascites. 3. Esophageal and gastric varices. 4. Umbilical hernia containing ascites. 5. Cholelithiasis. 6. Additional findings as detailed above.
[2024-11-25] MEDS ORDERED: LORazepam 2MG/ML-1ML VIAL IV PRN (14:15)
[2024-11-25] MEDS ORDERED: ACETAMINOPHEN 325 MG TAB PO PRN (14:15)
[2024-11-25] MEDS ORDERED: ONDANSETRON HCL 4 MG/2 ML VIAL IV PRN (14:15)
--- NOTE | 2024-11-25 14:22 | DVHHP2 ---
History of Present Illness Reason for Visit: Abdominal distention History of Present Illness Yang Martin is a 54-year-old male with past medical history of hypertension, anxiety, depression, kidney stones, esophageal varices, umbilical hernia, cholelithiasis, alcohol dependence, alcoholic liver cirrhosis who presents to the ED for abdominal distention and pain for 2-3 months. Patient also states that he has a cough, nausea, and headache which is constant and throbbing 10/10. Patient reports that he drinks 6 beers per day, quit smoking, and does not use illicit drugs. Patient denies any chest pain, shortness of breath, abdominal pain, vomiting, diarrhea,, lightheadedness, fever, chills, dizziness, visual disturbances, and tremors. Hepatobiliary: Cirrhosis Psych: Anxiety, Depression Past Medical History Alcoholic liver cirrhosis Alcohol dependence Kidney stones Esophageal varices Umbilical hernia Cholelithiasis Past Surgical History: Hernia Repair, Other (EGD) Family History: Cancer, DM, Other (Mom with cancer and brother with diabetes) Smoke: Quit ALCOHOL: heavy Drugs: None Lives: with Family Domestic Violence: Neg Review of Systems Constitutional: Yes: Other (Headache); No: Fever, Chills, Sweats, Weakness, Malaise Eyes: No: Pain, Vision change, Conjunctivae inflammation, Eyelid inflammation, Other, Redness ENT: No: Ear pain, Ear discharge, Nose pain, Nose discharge, Nose congestion, Mouth pain, Mouth swelling, Throat pain, Throat swelling, Other Respiratory: Cough; No: Dry, Shortness of breath, SOB with excertion, Wheezing, Hemoptysis, Pleuritic Pain, Sputum, Wheezing, Other Cardiovascular: No: Chest Pain, Palpitations, Orthopnea, Paroxysmal Noc. Dyspnea, Edema, Lt Headedness, Other Gastrointestinal: Nausea, Abdominal Pain, Other (Abdominal distention); No: Vomiting, Diarrhea, Constipation, Melena, Hematochezia Genitourinary: No Dysuria, No Frequency, No Incontinence, No Hematuria, No Retention, No Other Musculoskeletal: No: other, neck pain, shoulder pain, arm pain, back pain, hand pain, leg pain, foot pain Skin: No: Rash, Lesions, Jaundice, Bruising, Other Neurological: No: Weakness, Numbness, Incoordination, Change in speech, Confusion, Seizures, Other Allergies: Coded Allergies: NO KNOWN ALLERGIES (Unverified , 5/9/20) Medications Current Medications Medications Dose Ordered Sig/Adama Route Start Time Stop Time Status Last Admin Dose Admin Thiamine HCl 100 mg DAILY PO 11/26/24 10:00 UNV Folic Acid 1 mg DAILY PO 11/26/24 10:00 UNV Multivitamins 1 tab DAILY PO 11/26/24 10:00 UNV Lorazepam 2 mg Q4H PO 11/25/24 14:15 UNV Lorazepam 1 mg Q2HPRN PRN IV 11/25/24 14:15 UNV Sodium Chloride 1,000 ml @ 60 mls/hr [id number] IV 11/25/24 14:15 UNV Acetaminophen/ Hydrocodone Bitart 1 tab Q4HP PRN PO 11/25/24 14:15 UNV Ondansetron HCl 4 mg Q4HP PRN IV 11/25/24 14:15 UNV Acetaminophen 650 mg Q6HP PRN PO 11/25/24 14:15 UNV Furosemide 40 mg DAILY IV 11/26/24 10:00 UNV Spironolactone 25 mg DAILY PO 11/26/24 10:00 UNV Exam Vital Signs Vital Signs Date Time Temp Pulse Resp B/P (MAP) Pulse Ox O2 Delivery O2 Flow Rate FiO2 11/25/24 12:11 134 11/25/24 12:03 98.5 20 168/95 (119) 99 General Appearance: Alert, Oriented X3, Cooperative HEENT: Atraumatic, PERRLA, EOMI, Mucous membr. moist/pink Respiratory: Normal air movement Cardiovascular: Normal S1, Normal S2, No murmurs Extremities: No cyanosis, Normal pulses Skin: No significant lesion Neuro: Normal gait, Normal speech, Strength at 5/5 X4 ext, Normal tone, Sensation intact Psych/Mental Status: Mental status NL, Mood NL Labs/Xrays Labs Test 11/25/24 11:54 Range/Units White Blood Count 3.0 L 4.4-10.8 10^3/uL Red Blood Count 4.34 L 4.5-5.90 10^6/uL Hemoglobin 16.1 13.5-17.5 g/dL Hematocrit 45.3 41.0-53.0 % Mean Corpuscular Volume 104.4 H 80.0-100.0 fL Mean Corpuscular Hemoglobin 37.2 H 28.0-32.0 pg Mean Corpuscular Hemoglobin Concent 35.6 32.0-36.0 g/dL Red Cell Distribution Width 13.6 11.8-14.3 % Platelet Count 118 L 140-450 10^3/uL Mean Platelet Volume 6.5 L 6.9-10.8 fL Neutrophils (%) (Auto) 68.3 37.0-80.0 % Lymphocytes (%) (Auto) 18.2 10.0-50.0 % Monocytes (%) (Auto) 11.6 0.0-12.0 % Eosinophils (%) (Auto) 1.2 0.0-7.0 % Basophils (%) (Auto) 0.7 0.0-2.0 % Neutrophils # (Auto) 2.0 1.6-8.6 10 ^3/uL Lymphocytes # (Auto) 0.5 0.4-5.4 10 ^3/uL Monocytes # (Auto) 0.3 0-1.3 10 ^3/uL Eosinophils # (Auto) 0 0-0.8 10 ^3/uL Basophils # (Auto) 0 0-0.2 10 ^3/uL Nucleated Red Blood Cells 0.2 % Prothrombin Time 13.3 H 9.3-11.8 sec Prothrombin Time INR 1.29 H 0.9-1.15 Activated Partial Thromboplast Time 30.1 24.5-34.5 SEC Sodium Level 138 136-145 mmol/L Potassium Level 3.5 3.5-5.1 mmol/L Chloride Level 106 98-107 mmol/L Carbon Dioxide Level 24 20-31 mmol/L Anion Gap 8 5-15 Blood Urea Nitrogen < 5 L 9-23 mg/dL Creatinine 0.76 0.700-1.30 mg/dL Glomerular Filtration Rate Calc 107 >90 mL/min BUN/Creatinine Ratio 6.6 L 10.0-20.0 Serum Glucose 123 H 74-106 mg/dL Calcium Level 8.6 L 8.7-10.4 mg/dL Total Bilirubin 3.7 H 0.2-1.0 mg/dL Aspartate Amino Transferase (AST) 134 H 13-40 U/L Alanine Aminotransferase (ALT) 46 H 7-40 U/L Alkaline Phosphatase 113 46-116 U/L Ammonia 26 11-32 umol/L Total Protein 8.4 H 5.7-8.2 g/dL Albumin 3.3 3.2-4.8 g/dL Lipase 39 12-53 U/L Plasma/Serum Blood Alcohol 251.2 H <10 mg/dL CLINICAL INFORMATION: 54 years old, Male; pain. TECHNIQUE: Axial CT images of the abdomen and pelvis were obtained without IV contrast. Coronal and sagittal reformatted images were obtained, reviewed, and stored. Evaluation of the parenchymal organs is limited without IV contrast. Evaluation of the bowel and mesentery is limited without oral contrast. All CT scans at this medical facility are performed using dose modulation techniques as appropriate to a performed exam including the following: Automated exposure control was utilized; adjustment of the MA and/or KV according to patient size; and use of iterative reconstruction technique. CTDIvol = 21.17, 0.07, 0.07 mGy DLP = 1293.08 mGy-cm COMPARISON: CT CT AB PEL WO CON-NO ORAL OR IV on DOS: 07/29/24, CT CT AB PEL WO CON-NO ORAL OR IV on DOS: 12/06/23, CT ABD PELVIS WO CONTRAST on DOS: 09/30/22 FINDINGS: Lung bases: Minimal atelectasis in the lung bases. Liver: Cirrhotic liver morphology with lobulated contour relative enlargement of the left hepatic lobe. Heterogeneous density of the liver. Limited evaluation for liver lesions on noncontrast enhanced exam. Biliary: Multiple calcified gallstones in the gallbladder. Spleen: Unremarkable. Pancreas: Grossly unremarkable in its noncontrast enhanced appearance. Adrenal glands: Unremarkable. No mass. Kidneys: No hydronephrosis. No renal or ureteral calculi. Aorta/Vascular: Scattered atherosclerotic calcification. No abdominal aortic aneurysm. Retroperitoneum: No mass or lymphadenopathy. Bowel/mesentery: No small bowel obstruction. Appendix is visualized and appears unremarkable. Moderate to large amount of abdominal and pelvic ascites. Edematous appearance of the omentum, likely due to the ascites, with no discrete omental masses visualized, similar in appearance compared to the prior CT. There are gastric and esophageal varices. Pelvic organs: Grossly unremarkable. Bladder: Unremarkable. No mass. Abdominal wall: Moderate sized umbilical hernia containing ascites, measuring up to 9 cm. Bones: No acute fracture or suspicious intraosseous lesion. IMPRESSION: 1. Cirrhotic liver morphology. 2. Moderate to large amount of abdominal and pelvic ascites. 3. Esophageal and gastric varices. 4. Umbilical hernia containing ascites. 5. Cholelithiasis. 6. Additional findings as detailed above. Assessment/Plan Assessment/Plan Assessment/Plan: Liver cirrhosis with ascites Thrombocytopenia Leukopenia Transaminitis Moderate to large amount of abdominal and pelvic ascites Umbilical hernia containing ascites. Labs EKG Blood alcohol Pneumonia PT/PTT CT abdomen and pelvis UA Lipase Hepatitis panel UDS CIWA Magnesium level UDS Thiamine Folic acid Multivitamins Librium Lasix and spironolactone IR consult Antiemetics Pain management Esophageal and gastric varices. Cholelithiasis. Follow up outpatient with PCP Chronic hypertension Continue home medications Chronic anxiety Chronic depression Follow up outpatient with PCP ETOH abuse Counseled patient on cessation of EtOH use Obesity Educated patient on lifestyle modifications, diet, and exercise FEN/PPX diet HL DVT ppx - hold ac d/t thrombocytopenia PUD PPX -Protonix and sucralfate, home medication Admit patient to telemetry Discussed plan of care with patient and nurse Home meds reconciled Meld score 14 points with 6% estimated 3 month mortality CIWA score at time of admission 11 points Plan discussed with: Patient My Orders Orders - CAMILO PARSONS [employer] DIRECT[employer] Procedure Category Date Status Time * Radiologist Consult CONS 11/25/24 Transmitted 13:36 Acute Hepatitis Panel LAB 11/25/24 Logged 14:02 Drug Screen LAB 11/25/24 Logged 14:02 Chlordiazepoxide Hcl PHA 11/25/24 Logged Capsule (Librium Ca 14:15 Magnesium LAB 11/25/24 Logged 14:02 Thiamine Tab PHA 11/26/24 Logged 10:00 Folic Acid Tablet PHA 11/26/24 Logged 10:00 Multiple Vitamin PHA 11/26/24 Logged Tablet (Mvi Tab) 10:00 Thiamine Tab PHA 11/25/24 Logged 14:15 Multiple Vitamin PHA 11/25/24 Logged Tablet (Mvi Tab) 14:15 Folic Acid Tablet PHA 11/25/24 Logged 14:15 Lorazepam Tablet PHA 11/25/24 Logged (Ativan Tablet) 14:15 Lorazepam Tablet PHA 11/25/24 Logged (Ativan Tablet) 14:15 Lorazepam 2mg/Ml Inj PHA 11/25/24 Logged (Ativan Inj) 14:15 Etoh Withdrawal JOSE 11/25/24 In Process Assessment 14:02 Etoh Withdrawal JOSE 11/25/24 In Process Assessment 14:02 Admit ADMIT 11/25/24 Transmitted 14:02 Allergies JOSE 11/25/24 In Process 14:02 Code Status CODE 11/25/24 Transmitted 14:02 2 Gm Sodium Diet DIET 11/25/24 Transmitted Dinner Sodium Chloride 0.9% PHA 11/25/24 Logged 14:15 Hydrocodone-Acet PHA 11/25/24 Logged 5/325mg Tab ([place] 14:15 Ondansetron Hcl PHA 11/25/24 Logged (Zofran) 14:15 Complete Blood Count LAB 11/26/24 Verified 04:00 Comprehensive LAB 11/26/24 Verified Metabolic Panel 04:00 Acetaminophen Tablet PHA 11/25/24 Logged (Tylenol Tablet) 14:15 Furosemide Injection PHA 11/26/24 Logged (Lasix Injection) 10:00 Furosemide Injection PHA 11/25/24 Logged (Lasix Injection) 14:15 Spironolactone PHA 11/26/24 Logged (Aldactone) 10:00 Spironolactone PHA 11/25/24 Logged (Aldactone) 14:15 Date of Service: Nov 25, 2024 Billing Provider: CAMILO PARSONS Common Visit Codes: [id number] INP/OBS CARE (HIGH) CAMILO PARSONS Nov 25, 2024 14:22
[2024-11-25] MEDS: LORazepam 0.5 MG TAB PO ONE (14:44)
[2024-11-25] MEDS: LORazepam 0.5 MG TAB PO SCH (14:56)
[2024-11-25] MEDS: FOLIC ACID 1 MG TAB PO ONE (14:56)
[2024-11-25] MEDS: MULTIPLE VITAMIN TAB PO ONE (14:57)
[2024-11-25] MEDS: SPIRONOLACTONE 25 MG TAB PO ONE (14:57)
[2024-11-25] MEDS: chlordiazePOXIDE HCL 25 MG CAP PO ONE (14:57)
[2024-11-25] MEDS: THIAMINE HCL 100 MG TAB PO ONE (14:57)
[2024-11-25] MEDS: SODIUM CHLORIDE 0.9% 1,000 ML IV SCH (14:58)
[2024-11-25] MEDS: FUROSEMIDE 40 MG/4 ML VIAL IV ONE (15:09)
[2024-11-25] MEDS ORDERED: LACT10SO3 PO (15:14)
[2024-11-25 15:18] LABS: Urine Bacteria None Seen /hpf (None Seen)
[2024-11-25 15:34] LABS: Urine Blood 2+ /uL (Negative); Urine Clarity Clear (Clear); Urine Color Dark-Yellow (Yellow); Urine Mucus FEW (None Seen); Urine Protein, UAD 1+ (Negative); Urine Specific Gravity 1.022 (1.001-1.035); Urine Squamous Epithelial Cell None Seen /hpf (<5); Urine Urobilinogen 12 mg/dL (Negative); Urine WBC 2 /HPF (0-3)
[2024-11-25 15:49] LABS: Amphetamine Screen, Urine Neg (NEGATIVE)
[2024-11-25 16:06] LABS: Barbiturate Scree,Urine Neg (NEGATIVE); Benzodiazephine Screen, Urine Neg (NEGATIVE); Cannabinoid Screen, Urine Neg (NEGATIVE); Cocaine Screen, Urine Neg (NEGATIVE); Opiate Scree,Urine Neg (NEGATIVE); Phencyclidine Screen, Urine Neg (NEGATIVE)
[2024-11-25] MEDS: ACAMPROSATE CALCIUM 333 MG PO SCH (22:00)
[2024-11-25] MEDS ORDERED: MAGNESIUM OXIDE 400 MG TAB PO SCH (22:00)
[2024-11-25] MEDS: SUCRALFATE 1 GM TAB PO SCH (22:00)
[2024-11-25] MEDS: PROPRANOLOL HCL 20 MG TAB PO SCH (22:18)
[2024-11-25] MEDS: HYDROcodone-ACET 5/325MG TAB PO PRN (22:18)
[2024-11-25 22:39] VITALS: PULSE 120; RESP 18; O2SAT 96
[2024-11-26 07:25] LABS: Hemoglobin 14.5 g/dL (13.5-17.5); White Blood Cell 2.8 10^3/uL (4.4-10.8)
[2024-11-26 07:27] LABS: Hematocrit 40.9 % (41.0-53.0); Mean Corpuscular Hemoglobin 37.2 pg (28.0-32.0); Mean Corpuscular Hgb Conc. 35.5 g/dL (32.0-36.0); Mean Corpuscular Volume 104.9 fL (80.0-100.0); Platelet Count (auto) 86 10^3/uL (140-450); Red Cell Distribution Width 13.2 % (11.8-14.3)
[2024-11-26 07:36] LABS: Albumin 3.4 g/dL (3.2-4.8); Alkaline Phosphatase 105 U/L (46-116); Anion Gap 8 (5-15); Carbon Dioxide 25 mmol/L (20-31); Chloride 101 mmol/L (98-107); Glucose 104 mg/dL (74-106); Potassium 3.7 mmol/L (3.5-5.1); Total Protein 8.1 g/dL (5.7-8.2)
[2024-11-26 07:38] LABS: Basophils % (manual) 0 (0.0-2.0); Blast Cells 0; Metamyelocytes % 0; Myelocytes % 0; Promyelocytes % 0; Reactive Lymphocytes 0
[2024-11-26 07:39] LABS: Alanine Aminotransferase 44 U/L (7-40); Aspartate Aminotransferase 131 U/L (13-40); BUN/Creatinine Ratio 6.1 (10.0-20.0); Bilirubin, Total 3.7 mg/dL (0.2-1.0); Blood Urea Nitrogen < 5 mg/dL (9-23); Calcium 8.2 mg/dL (8.7-10.4); Sodium 134 mmol/L (136-145)
[2024-11-26 08:12] LABS: Band Neutrophils % (manual) 1; Eosinophils % (manual) 3 (0-7); Lymphocytes % (manual) 12 (10.0-50.0); Monocytes % (manual) 22 (0-12); Platelet Estimate Decreased
[2024-11-26 09:22] LABS: Hepatitis A Ab IgM Negative; Hepatitis B Core IgM Negative (Negative); Hepatitis B Surface Antigen Negative (Negative)
[2024-11-26 09:23] LABS: Hepatitis C Antibody Negative (Negative)
[2024-11-26] MEDS ORDERED: PATIENTS OWN MEDICATION (Magnesium Oxide 400 MG) OR SCH (10:00)
--- NOTE | 2024-11-26 11:22 | DVH ---
US PARACENTESIS, HISTORY: ASCITES PROCEDURE: Informed consent was obtained. The patient was placed in supine position. A limited locali zation ultrasound of the abdomen was obtained, and the skin site over the largest pocket of fluid was marked and entry site was prepped with chlorhexidine which was allowed to dry and draped in the usua l sterile fashion. Time out was performed. Following administration of 1% lidocaine local anesthetic, a 5 [place] centesis needle catheter was percutaneously inserted into the peritoneal collection until fluid was aspirated. The catheter was advanced into the fluid collection and the needle removed. Abo ut 8400 cc of fluid was aspirated and specimen sent for appropriate cultures/cytology/cultures and cy tology. The catheter was then removed and a sterile dressing applied. 25 gm of albumin colloid infusi on was given IV. No immediate complication was identified. FINDINGS: Limited ultrasound imaging demonstrates moderate ascites. Aspirated fluid was clear and ser ous. IMPRESSION: US-guided paracentesis with 8.4L removed.
[2024-11-26] MEDS: FUROSEMIDE 40 MG/4 ML VIAL IV SCH (11:47)
[2024-11-26] MEDS: ALBUMIN 25% 100 ML IV ONE (11:47)
[2024-11-26] MEDS: LACTULOSE 20Gm/30ML SOLN PO SCH (11:49)
[2024-11-26] MEDS: MULTIPLE VITAMIN TAB PO SCH (11:49)
[2024-11-26] MEDS: FOLIC ACID 1 MG TAB PO SCH (11:49)
[2024-11-26] MEDS: MAGNESIUM OXIDE 400 MG TAB PO SCH (11:50)
[2024-11-26] MEDS: SPIRONOLACTONE 25 MG TAB PO SCH (11:51)
[2024-11-26] MEDS: LISINOPRIL 20 MG TAB PO SCH (11:52)
[2024-11-26] MEDS: THIAMINE HCL 100 MG TAB PO SCH (12:37)
[2024-11-26 12:48] VITALS: PULSE 97; RESP 12; O2SAT 98
[2024-11-26 13:00] VITALS: BP 145/84; PULSE 91; RESP 21; TEMP 98.1; O2SAT 96
--- NOTE | 2024-11-26 13:44 | DVHPN2 ---
Reviewed: Care Plan, H&P, Labs, Medications, Previous Orders, Radiology Changes from previous H/P or p: No Changes General: Per HPI Eyes: No Pain, No Vision change, No Conjunctivae inflammation, No Eyelid inflammation, No Other, No Redness ENT: No Ear pain, No Ear discharge, No Nose pain, No Nose discharge, No Nose congestion, No Mouth pain, No Mouth swelling, No Throat pain, No Throat swelling, No Other Cardiovascular: No Chest Pain, No Palpitations, No Orthopnea, No Paroxysmal Noc. Dyspnea, No Edema, No Lt Headedness, No Other Respiratory: Cough; No Dry, No Shortness of breath, No SOB with excertion, No Wheezing, No Hemoptysis, No Pleuritic Pain, No Sputum, No Other Gastrointestinal: Nausea; No Vomiting; Abdominal Pain; No Diarrhea, No Constipation, No Melena, No Hematochezia; Other (Abdominal distention) Genitourinary: No Dysuria, No Frequency, No Incontinence, No Hematuria, No Retention, No Other Musculoskeletal: No other, No neck pain, No shoulder pain, No arm pain, No back pain, No hand pain, No leg pain, No foot pain Skin: No Rash, No Lesions, No Jaundice, No Bruising, No Other Objective Vitals Vital Signs Date Time Temp Pulse Resp B/P (MAP) Pulse Ox O2 Delivery O2 Flow Rate FiO2 11/26/24 12:48 97 12 98 Room Air* 0 21 11/26/24 11:52 146/82 11/26/24 11:35 100.7 100.7 Medications Current Medications Medications Dose Ordered Sig/Adama Route Start Time Stop Time Status Last Admin Dose Admin Thiamine HCl 100 mg DAILY PO 11/26/24 10:00 11/26/24 12:37 100 MG Folic Acid 1 mg DAILY PO 11/26/24 10:00 11/26/24 11:49 1 MG Multivitamins 1 tab DAILY PO 11/26/24 10:00 11/26/24 11:49 1 TAB Lorazepam 2 mg Q4H PO 11/25/24 14:15 11/26/24 07:19 2 MG Lorazepam 1 mg Q2HPRN PRN IV 11/25/24 14:15 Acetaminophen/ Hydrocodone Bitart 1 tab Q4HP PRN PO 11/25/24 14:15 11/25/24 22:18 1 TAB Ondansetron HCl 4 mg Q4HP PRN IV 11/25/24 14:15 Acetaminophen 650 mg Q6HP PRN PO 11/25/24 14:15 Furosemide 40 mg DAILY IV 11/26/24 10:00 11/26/24 11:47 40 MG Spironolactone 25 mg DAILY PO 11/26/24 10:00 11/26/24 11:51 25 MG Lactulose 30 ml DAILY PO 11/26/24 10:00 11/26/24 11:49 30 ML Lisinopril 20 mg DAILYPRN PO 11/26/24 10:00 11/26/24 11:52 20 MG Propranolol HCl 20 mg BID PO 11/25/24 22:00 11/26/24 11:51 20 MG Sucralfate 1 gm QID PO 11/25/24 18:00 11/26/24 12:37 1 GM Patient Own Medication 333 mg QID PO 11/25/24 18:00 Patient Own Medication 400 mg DAILY OR 11/26/24 10:00 UNV Magnesium Oxide 40 mg DAILY PO 11/26/24 10:00 11/26/24 11:50 40 MG Laboratory Results Laboratory Tests 11/26/24 07:09 Chemistry Test 11/26/24 07:09 Albumin 3.4 g/dL (3.2-4.8) Calcium Level 8.2 mg/dL (8.7-10.4) L Total Protein 8.1 g/dL (5.7-8.2) LFT Test 11/26/24 07:09 Alanine Aminotransferase (ALT) 44 U/L (7-40) H Alkaline Phosphatase 105 U/L (46-116) Aspartate Amino Transferase (AST) 131 U/L (13-40) H Total Bilirubin 3.7 mg/dL (0.2-1.0) H Urinalysis Test 11/25/24 15:17 Urine Color Dark-yellow (Yellow) Urine Clarity Clear (Clear) Urine pH 6.0 (5.0-9.0) Urine Specific [place] 1.022 (1.001-1.035) Urine Protein 1+ (Negative) H Urine Ketones 1+ (Negative) H Urine Blood 2+ /uL (Negative) H Urine Nitrite Negative (Negative) Urine Bilirubin 1+ (Negative) Urine Urobilinogen 12 mg/dL (Negative) H Urine Leukocyte Esterase Negative /uL (Negative) Urine RBC 46 /hpf (0 - 3) Urine Microscopic WBC 2 /HPF (0-3) Urine Squamous Epithelial Cells None seen /hpf (<5) Urine Bacteria None seen /hpf (None Seen) Urine Mucus Few (None Seen) Urine Glucose Normal mg/dL (Normal) Assessment/Plan Assessment/Plan Yang Martin is a 54-year-old male with past medical history of hypertension, anxiety, depression, kidney stones, esophageal varices, umbilical hernia, cholelithiasis, alcohol dependence, alcoholic liver cirrhosis who presents to the ED for abdominal distention and pain for 2-3 months. Patient also states that he has a cough, nausea, and headache which is constant and throbbing 10/10. Patient reports that he drinks 6 beers per day, quit smoking, and does not use illicit drugs. Patient denies any chest pain, shortness of breath, abdominal pain, vomiting, diarrhea,, lightheadedness, fever, chills, dizziness, visual disturbances, and tremors. Liver cirrhosis with ascites Thrombocytopenia Leukopenia Transaminitis Moderate to large amount of abdominal and pelvic ascites Umbilical hernia containing ascites. Esophageal and gastric varices. Cholelithiasis. Chronic hypertension Chronic anxiety Chronic depression ETOH abuse Obesity Plan discussed with: Patient My Orders Orders - KAYLAN MELVIN DO Procedure Category Date Status Time Lactate LAB 11/26/24 In Process Dehydrogenase, Fluid 11:24 AKYLAN MELVIN DO Nov 26, 2024 13:44
[2024-11-26 13:56] LABS: Body Fluid Polymorphonuclear 11 % (0-25); Body Fluid Red Blood Cells 730 CUMM (0-2000); Body Fluid White Blood Cells 253 CUMM (0-200)
[2024-11-26 14:21] VITALS: BP 141/92; PULSE 92; RESP 15; TEMP 98; O2SAT 98
[2024-11-26 17:00] VITALS: BP 163/93; PULSE 90; RESP 19; TEMP 98.6; O2SAT 97
[2024-11-26 20:00] VITALS: PULSE 91; RESP 20; O2SAT 97
[2024-11-26 21:00] VITALS: BP 140/84; PULSE 96; RESP 20; TEMP 98.5; O2SAT 97
[2024-11-27 05:00] VITALS: BP 117/76; PULSE 82; RESP 19; TEMP 98.5; O2SAT 97
[2024-11-27 08:00] VITALS: PULSE 78; PULSE 80; RESP 16; O2SAT 97
[2024-11-27 09:00] VITALS: BP 119/75; PULSE 80; RESP 16; TEMP 97.8; O2SAT 97
--- NOTE | 2024-11-27 09:34 | ECG ---
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
[2024-11-27 11:06] LABS: Protein, Body Fluid 2.9 g/dL (.)
[2024-11-27 13:00] VITALS: BP 118/71; PULSE 85; RESP 16; TEMP 97.8; O2SAT 98
[2024-11-27] MEDS ORDERED: THIA100T10 PO (13:53)
[2024-11-27] MEDS ORDERED: SPIR25TA PO (13:53)
--- NOTE | 2024-11-27 13:54 | DVHDS2 ---
Discharge Summary Date of Admission Nov 25, 2024 at 14:02 Date of Discharge: Nov 27, 2024 Labs/Diagnostic Data: Laboratory Results Test 11/26/24 11:10 11/26/24 07:09 11/25/24 15:17 11/25/24 11:54 Body Fluid Source Ascities fluid Body Fluid pH 8.0 Body Fluid WBC (Manual) 253 CUMM (0-200) Body Fluid RBC (Manual) 730 CUMM (0-2000) Body Fluid Mononuclear Cells 89 % Body Fluid Polymorphonuclear Cells 11 % (0-25) Body Fluid Glucose 117 mg/dL (.) Body Fluid Total Protein 2.9 g/dL (.) Body Fluid Lactate Dehydrogenase 77 IU/L (.) White Blood Count 2.8 10^3/uL (4.4-10.8) Red Blood Count 3.90 10^6/uL (4.5-5.90) Hemoglobin 14.5 g/dL (13.5-17.5) Hematocrit 40.9 % (41.0-53.0) Mean Corpuscular Volume 104.9 fL (80.0-100.0) Mean Corpuscular Hemoglobin 37.2 pg (28.0-32.0) Mean Corpuscular Hemoglobin Concent 35.5 g/dL (32.0-36.0) Red Cell Distribution Width 13.2 % (11.8-14.3) Platelet Count 86 10^3/uL (140-450) Mean Platelet Volume 6.6 fL (6.9-10.8) Neutrophils (%) (Auto) % (37.0-80.0) Lymphocytes (%) (Auto) % (10.0-50.0) Monocytes (%) (Auto) % (0.0-12.0) Basophils (%) (Auto) % (0.0-2.0) Neutrophils # (Auto) 10 ^3/uL (1.6-8.6) Lymphocytes # (Auto) 10 ^3/uL (0.4-5.4) Monocytes # (Auto) 10 ^3/uL (0-1.3) Differential Total Cells Counted 100.0 (100) Neutrophils % (Manual) 62 (37.0-80.0) Band Neutrophils % (Manual) 1 Lymphocytes % (Manual) 12 (10.0-50.0) Monocytes % (Manual) 22 (0-12) Eosinophils % (Manual) 3 (0-7) Basophils % (Manual) 0 (0.0-2.0) Metamyelocytes % (manual) 0 Myelocytes % (Manual) 0 Promyelocytes % (Manual) 0 Blast Cells % (Manual) 0 Reactive Lymphocytes 0 Platelet Estimate Decreased Sodium Level 134 mmol/L (136-145) Potassium Level 3.7 mmol/L (3.5-5.1) Chloride Level 101 mmol/L (98-107) Carbon Dioxide Level 25 mmol/L (20-31) Anion Gap 8 (5-15) Blood Urea Nitrogen < 5 mg/dL (9-23) Creatinine 0.82 mg/dL (0.700-1.30) Glomerular Filtration Rate Calc 105 mL/min (>90) BUN/Creatinine Ratio 6.1 (10.0-20.0) Serum Glucose 104 mg/dL (74-106) Calcium Level 8.2 mg/dL (8.7-10.4) Total Bilirubin 3.7 mg/dL (0.2-1.0) Aspartate Amino Transferase (AST) 131 U/L (13-40) Alanine Aminotransferase (ALT) 44 U/L (7-40) Alkaline Phosphatase 105 U/L (46-116) Lactate Dehydrogenase 195 U/L (120-246) Total Protein 8.1 g/dL (5.7-8.2) Albumin 3.4 g/dL (3.2-4.8) Urine Color Dark-yellow (Yellow) Urine Clarity Clear (Clear) Urine pH 6.0 (5.0-9.0) Urine Specific [place] 1.022 (1.001-1.035) Urine Protein 1+ (Negative) Urine Ketones 1+ (Negative) Urine Blood 2+ /uL (Negative) Urine Nitrite Negative (Negative) Urine Bilirubin 1+ (Negative) Urine Urobilinogen 12 mg/dL (Negative) Urine Leukocyte Esterase Negative /uL (Negative) Urine RBC 46 /hpf (0 - 3) Urine Microscopic WBC 2 /HPF (0-3) Urine Squamous Epithelial Cells None seen /hpf (<5) Urine Bacteria None seen /hpf (None Seen) Urine Mucus Few (None Seen) Urine Glucose Normal mg/dL (Normal) Urine Opiates Screen Neg (NEGATIVE) Urine Fentanyl Screen Neg (NEGATIVE) Urine Barbiturates Screen Neg (NEGATIVE) Urine Phencyclidine Screen Neg (NEGATIVE) Urine Amphetamines Screen Neg (NEGATIVE) Urine Benzodiazepines Screen Neg (NEGATIVE) Urine Cocaine Screen Neg (NEGATIVE) Urine Cannabinoids Screen Neg (NEGATIVE) Eosinophils (%) (Auto) 1.2 % (0.0-7.0) Eosinophils # (Auto) 0 10 ^3/uL (0-0.8) Basophils # (Auto) 0 10 ^3/uL (0-0.2) Nucleated Red Blood Cells 0.2 % Prothrombin Time 13.3 sec (9.3-11.8) Prothrombin Time INR 1.29 (0.9-1.15) Activated Partial Thromboplast Time 30.1 SEC (24.5-34.5) Magnesium Level 1.4 mg/dL (1.6-2.6) Ammonia 26 umol/L (11-32) Lipase 39 U/L (12-53) Plasma/Serum Blood Alcohol 251.2 mg/dL (<10) Hepatitis A IgM Antibody Negative Hepatitis B Surface Antigen Negative (Negative) Hepatitis B Core IgM Antibody Negative (Negative) Hepatitis C Antibody Negative (Negative) Other Laboratory Tests 11/26/24 07:09 Discharge Statement: "Patient was advised to return to the ER or call 911 if any headaches, dizziness, shortness of breath, chest pain, abdominal pain, bleeding, fevers, or worsening of medical condition. Patient was counseled about treatment plan, medications, possible side effects, patientverbalized understanding. All questions were answered to the best of my ability. This discharge took greater then 30 minutes in planning, reviewing documentation, counseling the patient, and discussing with other team members." ASSESSMENT ASSESSMENT Assessment Date of Service: Nov 27, 2024 Billing Provider: KAYLAN MELVIN DO Common Visit Codes: [id number] DISCH DAY >30min KAYLAN MELVIN DO Nov 27, 2024 13:54
[2024-11-27 16:19] VITALS: BP 119/75; PULSE 80; RESP 16; TEMP 97.8; O2SAT 97
== END 2024-11-27 17:00 | disposition home or self-care (01) | DRG 280 ==
LOC: ER 11:35 → TELE 14:02 → TELE-CENTR 11-26 13:42
PROVIDERS: ADMIT Internal Medicine; ATTEND Internal Medicine
PROC: 0W9G3ZZ Drainage of Peritoneal Cavity, Percutaneous Approach (ICD-10-PCS; principal; 2024-11-26)
DX: K70.31 Alcoholic cirrhosis of liver with ascites (principal); D69.6 Thrombocytopenia, unspecified; I85.10 Secondary esophageal varices without bleeding; D72.819 Decreased white blood cell count, unspecified; F32.A Depression, unspecified; F41.9 Anxiety disorder, unspecified; I10 Essential (primary) hypertension; I86.4 Gastric varices; K42.9 Umbilical hernia without obstruction or gangrene; K80.20 Calculus of gallbladder without cholecystitis without obstruction; E66.9 Obesity, unspecified; F10.20 Alcohol dependence, uncomplicated; Z80.9 Family history of malignant neoplasm, unspecified; Z87.442 Personal history of urinary calculi; Z83.3 Family history of diabetes mellitus; Z87.891 Personal history of nicotine dependence; Z68.32 Body mass index [BMI] 32.0-32.9, adult
CPT/HCPCS: 36415; 49083; 74176; 76942; 80053; 80074; 80307; 80320; 81001; 82140; 83615; 83690; 83735; 83986; 85007; 85025; 85027; 85610; 85730; 87205; 89051; 93005; 99291; G0378; P9047

== ENCOUNTER 2025-01-05 13:45 | Inpatient (IN) | payer MEDICAID ==
[~2025-01-05] VITALS: Ht 165.1 cm; Wt 87.0 kg
[~2025-01-05 13:45] MED LIST changes: +LACT10SO3 PO; +SPIR25TA PO
--- NOTE | 2025-01-05 14:15 | ED.PDOC ---
GI ASSESSMENT HPI Comments 54 y/o M, with PMHX of HTN and liver disease presents to the ED for CC of abdominal pain. Patient states, he has been experiencing diffuse abdominal pain x5days with associated new onset symptoms of cough x3days. Patient comments on, currently taking diuretics. Patient drinks occasional ETOH denies tobacco usage or illicit drug usage. Patient denies fever, chills, body-aches, or N/V/D. No other symptoms or modifying factors at this time. Time Seen by MD: 14:00 Primary Care Provider: ? Reviewed Notes: Nurses Notes, Medications, Allergies Allergies: Coded Allergies: NO KNOWN ALLERGIES (Unverified , 03/12/20) Home Meds Active Scripts Thiamine Hcl (VITAMIN B-1) 100 Mg Tb, 100 MG PO DAILY for 30 Days, #30 TAB 3 Ref ills Prov:KAYLAN MELVIN DO 11/27/24 Spironolactone (Aldactone) 25 Mg Tab, 25 MG PO DAILY for 30 Days, #30 TAB 3 Refills Prov:KAYLAN MELVIN DO 11/27/24 Spironolactone (Spironolactone) 100 Mg Tab, 1 TAB PO DAILY for 90 Days, #90 TAB 3 Refills Prov:ALCIDES SIMON MD 10/22/24 Naproxen (Naproxen) 500 Mg Tab, 500 MG PO BID, #30 TAB Prov:JIMBO ALEXANDER 08/21/24 Sulfamethoxazole W/Trimethopri (Bactrim Ds Tablet) 1 Tab Tb, 1 TAB PO BID for 10 Days, #20 TAB Prov:JIMBO ALEXANDER 08/21/24 Magnesium Oxide (MAGNESIUM OXIDE) 400 Mg Tab, 400 MG OR DAILY for 30 Days, #30 TAB Prov:PORSCHE CROWE RESIDENT 07/31/24 Potassium Chloride (Potassium Chloride ER) 20 Meq Tab, 20 MEQ PO DAILY for 30 Days, #30 TAB Prov:PORSCHE CROWE RESIDENT 07/31/24 Furosemide (Lasix) 40 Mg Tab, 40 MG PO DAILY for 30 Days, #30 TAB Prov:PORSCHE CROWE RESIDENT 07/31/24 Spironolactone (Aldactone) 100 Mg Tab, 100 MG PO DAILY for 30 Days, #30 TAB 2 Refills Prov:PORSCHE CROWE RESIDENT 07/31/24 Multiple Vitamin (Multivitamins) Tab, 1 TAB PO DAILY for 90 Days, #90 TAB 0 Refills Prov:ANUJ MULLIGAN [employer] 04/06/24 Lactulose (Enulose) 10 Gm/15 Ml Sharon, 30 ML PO DAILY for 30 Days, #473 ML Prov:ANUJ MULLIGAN [employer] 04/06/24 Sucralfate (CARAFATE) 1 Gm Tab, 1 GM OR QID for 30 Days, #120 TAB Prov:AMELIE MULLIGANPH [employer] 04/06/24 Lisinopril (Lisinopril) 20 Mg Tab, 1 TAB PO DAILYPRN for 60 Days, #60 TAB Prov:ANUJ MULLIGAN [employer] 04/06/24 Propranolol HCl (Propranolol Hydrochloride) 20 Mg Tab, 1 TAB PO BID for 60 Days, #120 TAB Prov:ANUJ MULLIGAN [employer] 04/06/24 Furosemide (Furosemide) 40 Mg Tab, 40 MG PO DAILY for 60 Days, #60 TAB Prov:ANUJ MULLIGAN [employer] 04/06/24 Reported Medications Lactulose (Lactulose) 10 Gm/15 Ml Sharon, ML PO 11/25/24 Acamprosate Calcium (ACAMPROSATE CALCIUM DR) 333 Mg Tab, 333 MG PO QID, TAB 07/31/24 Folic Acid (Folic Acid) 1 Mg Tab, 1 MG PO DAILY, TAB 07/31/24 Thiamine Hcl (VITAMIN B-1) 100 Mg Tb, 100 MG PO DAILY, TAB 07/31/24 Omeprazole (Omeprazole Dr) 20 Mg Cap, 20 MG PO DAILY, CAP 07/31/24 Information Source: Patient Mode of Arrival: Ambulatory Timing: Days Duration: Since onset Prehospital treatment: None Quality: None Vomitus: None Stool: Normal Severity: Moderate Recent: None Recent Hx of: None Pain Location: Diffuse Associated sign and symptoms: None Past Medical History PAST MEDICAL HISTORY: Anxiety, Depression, HTN, Kidney Stones, Liver Surgical History: Hernia Repair Family History Family History: Reviewed,noncontributory to illness, Family hx of Cancer Social History Smoker: Non-Smoker Alcohol: Heavy Drugs: Denies Drug Use Lives In: Home Constitutional: denies: chills, diaphoresis, fatigue, fever, malaise, sweats, weakness, others EENTM: denies: blurred vision, double vision, ear bleeding, ear discharge, ear drainage, ear pain, ear ringing, eye pain, eye redness, hearing loss, mouth pain, mouth swelling, nasal discharge, nose bleeding, nose congestion, nose pain, photophobia, tearing, throat pain, throat swelling, voice changes, others Respiratory: reports: cough; denies: hemoptysis, orthopnea, SOB at rest, shortness of breath, SOB with excertion, stridor, wheezing, others Cardiovascular: denies: chest pain, dizzy spells, diaphoresis, Dyspnea on exertion, edema, irregular heart beat, left arm pain, lightheadedness, palpitations, PND, syncope, others Gastrointestinal: reports: abdominal pain; denies: abdomen distended, blood streaked bowels, constipated, diarrhea, dysphagia, difficulty swallowing, he matemesis, melena, nausea, poor appetite, poor fluid intake, rectal bleeding, rectal pain, vomiting, others Genitourinary: denies: burning, dysuria, flank pain, frequency, hematuria, incontinence, penile discharge, penile sore, pain, testicle pain, testicle swelling, urgency, others Neurological: denies: dizziness, fainting, headache, left sided numbness, left sided weakness, numbness, paresthesia, pre-existing deficit, right sided numbness, right sided weakness, seizure, speech problems, tingling, tremors, weakness, others Musculoskeletal: denies: back pain, gout, joint pain, joint swelling, muscle pain, muscle stiffness, neck pain, others Integumetry: denies: bruises, change in color, change in hair/nails, dryness, laceration, lesions, lumps, rash, wounds, others Allergic/Immunocompromised: denies: Difficulty Healing, Frequent Infections, Hives, Itching, others Hematologic/Lymphatic: denies: anemia, blood clots, easy bleeding, easy bruising, swollen glands, others Endocrine: denies: excessive hunger, excessive sweating, excessive thirst, excessive urination, flushing, intolerance to cold, intolerance to heat, unexplained weight gain, unexplained weight loss, others Psychiatric: denies: anxiety, bipolar disorder, depression, hopeless, panic disorder, schizophrenia, sleepless, suicidal, others All Other Systems: Reviewed and Negative Physical Exam General Appearance: Moderate Distress, Obese HEENT: Pharynx Normal, Scleral Icterus (L), Scleral Icterus (R), TMs Normal Neck: Full Range of Motion, Non-Tender, Normal, Normal Inspection Respiratory: Chest Non-Tender, Lungs Clear, No Accessory Muscle Use, No Respiratory Distress, Normal Breath Sounds Cardiovascular: No Edema, No JVD, No Murmur, No Gallop, Normal Peripheral Pulses, Regular Rate/Rhythm Breast Exam: Deferred Gastrointestinal: Distended, Hepatomegaly, Non Tender, Soft Genitalia: Deferred Pelvic: Deferred Rectal: Deferred Extremities: No calf tenderness, Normal capillary refill, Pedal edema Musculoskeletal : Apperance: Normal Neurologic: Alert, billing clinician II-XII nml as Tested, Motor Weakness, Normal Affect, Normal Mood, No Sensory Deficits Cerebellar Function: Normal Reflexes: Normal Skin: Dry, Normal Color, Warm Lymphatic: No Adenopathy Was a procedure done? Was a procedure done?: No GI differential Dx Differential Diagnosis: Gastritis/PUD, Gastroenteritis, Inflammatory BD, Ischemic Bowel, Pancreatitis, Other (Liver cirrhosis, ascites) X-Ray, Labs, Meds, VS Vital Signs Date Time Temp Pulse Resp B/P (MAP) Pulse Ox O2 Delivery O2 Flow Rate FiO2 01/05/25 14:22 98.3 100 18 148/108 (121) 96 Lab Test 01/05/25 14:52 Range/Units White Blood Count 4.8 4.4-10.8 10^3/uL Red Blood Count 3.85 L 4.5-5.90 10^6/uL Hemoglobin 14.4 13.5-17.5 g/dL Hematocrit 40.8 L 41.0-53.0 % Mean Corpuscular Volume 106.0 H 80.0-100.0 fL Mean Corpuscular Hemoglobin 37.4 H 28.0-32.0 pg Mean Corpuscular Hemoglobin Concent 35.3 32.0-36.0 g/dL Red Cell Distribution Width 15.1 H 11.8-14.3 % Platelet Count 75 L 140-450 10^3/uL Mean Platelet Volume 7.5 6.9-10.8 fL Neutrophils (%) (Auto) 64.0 37.0-80.0 % Lymphocytes (%) (Auto) 18.0 10.0-50.0 % Monocytes (%) (Auto) 15.1 H 0.0-12.0 % Eosinophils (%) (Auto) 2.3 0.0-7.0 % Basophils (%) (Auto) 0.6 0.0-2.0 % Neutrophils # (Auto) 3.0 1.6-8.6 10 ^3/uL Lymphocytes # (Auto) 0.9 0.4-5.4 10 ^3/uL Monocytes # (Auto) 0.7 0-1.3 10 ^3/uL Eosinophils # (Auto) 0.1 0-0.8 10 ^3/uL Basophils # (Auto) 0 0-0.2 10 ^3/uL Nucleated Red Blood Cells 0.1 % Prothrombin Time 14.9 H 9.3-11.8 sec Prothrombin Time INR 1.46 H 0.9-1.15 Activated Partial Thromboplast Time 30.3 24.5-34.5 SEC Sodium Level 132 L 136-145 mmol/L Potassium Level 3.7 3.5-5.1 mmol/L Chloride Level 99 98-107 mmol/L Carbon Dioxide Level 24 20-31 mmol/L Anion Gap 9 5-15 Blood Urea Nitrogen 6 L 9-23 mg/dL Creatinine 0.82 0.700-1.30 mg/dL Glomerular Filtration Rate Calc 105 >90 mL/min BUN/Creatinine Ratio 7.3 L 10.0-20.0 Serum Glucose 104 74-106 mg/dL Calcium Level 8.5 L 8.7-10.4 mg/dL Total Bilirubin 6.0 H 0.2-1.0 mg/dL Aspartate Amino Transferase (AST) 118 H 13-40 U/L Alanine Aminotransferase (ALT) 46 H 7-40 U/L Alkaline Phosphatase 149 H 46-116 U/L Total Protein 7.9 5.7-8.2 g/dL Albumin 3.0 L 3.2-4.8 g/dL Ultrasound was done for paracentesis. The patient's CBC is within normal limits The INR is 1.46 The chemistry panel shows a bilirubin of 6.0 and the liver enzymes are elevated The patient was being admitted to the hospitalist The patient was receive a paracentesis The patient's ammonia level was done which is pending The patient was being admitted Images Reviewed?: Images reviewed and evaluated by me Time of 1ST Reevaluation: 14:30 Reevaluation 1ST: Unchanged Patient Education/Counseling: Diagnosis, Treatment, Prognosis Family Education/Counseling: No Family Present Departure 1 Departure Time of Disposition: 16:52 Impression: Primary Impression: Alcoholic cirrhosis of liver with ascites Additional Impression: Abdominal distension Disposition: 09 ADMITTED INPATIENT Admit to: Tele Condition: Fair Critical Care Note Critical Care Time?: Yes (45 min-critical care time only) Stability Stability form required: Yes Unstable for transfer: Telemetry monitoring (Telemetry monitoring required), ED Physician Assesment (Clinical assesment) Heart Score Heart Score: Heart Score Response (Comments) Value History N/A 0 EKG N/A 0 Age N/A 0 Risk Factors N/A 0 Troponin N/A 0 Total 0 I personally scribed for RG BLOUNT MD ([email or web address]) on 01/05/25 at 14:15. Electronically submitted by Cara Nuñez ([email or web address]). RG BLOUNT MD Jan 05, 2025 14:15
--- NOTE | 2025-01-05 14:34 | DVH ---
CLINICAL HISTORY: 54 years old, Male; ASCITES CHECK. TECHNIQUE: Grayscale sonographic imaging of the abdomen was performed, assisted by color doppler malinda hnique. COMPARISON: US ABDOMEN LIMITED on DOS: 07/30/24 FINDINGS: Ascites visualized in all 4 quadrants, Likely moderate severe ascites. IMPRESSION: Ascites visualized in all 4 quadrants.
[2025-01-05 15:14] LABS: Basophils # (auto) 0 10 ^3/uL (0-0.2); Basophils % (auto) 0.6 % (0.0-2.0); Eosinophils # (auto) 0.1 10 ^3/uL (0-0.8); Lymphocytes # (auto) 0.9 10 ^3/uL (0.4-5.4)
[2025-01-05 15:16] LABS: Eosinophils % (auto) 2.3 % (0.0-7.0); Hematocrit 40.8 % (41.0-53.0); Hemoglobin 14.4 g/dL (13.5-17.5); Mean Corpuscular Hemoglobin 37.4 pg (28.0-32.0); Mean Corpuscular Hgb Conc. 35.3 g/dL (32.0-36.0); Monocytes # (auto) 0.7 10 ^3/uL (0-1.3); Monocytes % (auto) 15.1 % (0.0-12.0); Nucleated Red Blood Cells % 0.1 %; Platelet Count (auto) 75 10^3/uL (140-450); Red Blood Cells 3.85 10^6/uL (4.5-5.90); Red Cell Distribution Width 15.1 % (11.8-14.3); White Blood Cell 4.8 10^3/uL (4.4-10.8)
[2025-01-05 15:30] LABS: INR 1.46 (0.9-1.15); Partial Thromboplastin Time 30.3 SEC (24.5-34.5); Prothrombin Time 14.9 sec (9.3-11.8)
[2025-01-05 15:38] LABS: Anion Gap 9 (5-15); BUN/Creatinine Ratio 7.3 (10.0-20.0); Carbon Dioxide 24 mmol/L (20-31); Chloride 99 mmol/L (98-107); Glucose 104 mg/dL (74-106); Potassium 3.7 mmol/L (3.5-5.1); Total Protein 7.9 g/dL (5.7-8.2)
[2025-01-05 15:40] LABS: Alanine Aminotransferase 46 U/L (7-40); Alkaline Phosphatase 149 U/L (46-116); Aspartate Aminotransferase 118 U/L (13-40); Blood Urea Nitrogen 6 mg/dL (9-23); Calcium 8.5 mg/dL (8.7-10.4); Sodium 132 mmol/L (136-145)
[2025-01-05] MEDS ORDERED: ONDANSETRON HCL 4 MG/2 ML VIAL IV PRN (18:45)
[2025-01-06] MEDS: PROPRANOLOL HCL 20 MG TAB PO SCH (00:27)
[2025-01-06 00:28] VITALS: PULSE 106; RESP 18; O2SAT 97
--- NOTE | 2025-01-06 04:03 | DVHHP2 ---
History of Present Illness Reason for Visit: Abdominal pain History of Present Illness 54-year-old male with a history of liver cirrhosis presents for evaluation of abdominal distention. Patient reports noticing increased in abdominal distention over the past five days. He states having his last paracentesis approximately two months ago. Denies fever or chills. No nausea or vomiting. No other acute complaints reported. Past Medical History Hypertension, liver disease, depression Past Surgical History Hernia repair Family History Cancer Smoke: No ALCOHOL: heavy Drugs: None Lives: with Family Review of Systems Review of Systems Review of systems are currently negative otherwise addressed in HPI. Allergies: Coded Allergies: NO KNOWN ALLERGIES (Unverified , 03/12/20) Medications Current Medications Medications Dose Ordered Sig/Adama Route Start Time Stop Time Status Last Admin Dose Admin Propranolol HCl 20 mg BID PO 01/05/25 22:00 01/06/25 00:27 20 MG Lisinopril 20 mg DAILY PO 01/06/25 10:00 Spironolactone 100 mg DAILY PO 01/06/25 10:00 Furosemide 40 mg DAILY PO 01/06/25 10:00 Ondansetron HCl 4 mg Q4HP PRN IV 01/05/25 18:45 Exam Vital Signs Vital Signs Date Time Temp Pulse Resp B/P (MAP) Pulse Ox O2 Delivery O2 Flow Rate FiO2 01/06/25 00:28 106 18 97 Room Air* 0 21 01/06/25 00:27 130/81 01/06/25 00:13 98.7 98.7 Exam Gen: 64-year-old male in mild distress Skin: Warm, dry, normal color and texture, no rash. HEENT: Normocephalic atraumatic, mucous membranes moist and pink. Neck: Cervical and supraclavicular nodes normal without enlargement, trachea is midline, thyroid gland is normal without masses. Pulmonary: Clear to auscultation and percussion bilaterally. Cardiac: Regular rate and rhythm. No murmur Abdomen: Soft, nontender, distended, bowel sounds present all 4 quadrants, no guarding, no rigidity, no organomegaly. Extremities: No cyanosis, clubbing, no edema Neuro: Cranial nerves II through XII grossly intact, normal affect and speech, no focal motor deficits. Labs/Xrays ORDERING PHYSICIAN: RG BLOUNT MD PROCEDURE(s): ABDL - ABDOMEN LIMITED REASON: ASCITES CHECK ORDER NUMBER(s): [id number], ACCESSION NUMBER(s): [id number] CLINICAL HISTORY: 54 years old, Male; ASCITES CHECK. TECHNIQUE: Grayscale sonographic imaging of the abdomen was performed, assisted by color doppler technique. COMPARISON: US ABDOMEN LIMITED on DOS: 07/30/24 FINDINGS: Ascites visualized in all 4 quadrants, Likely moderate severe ascites. IMPRESSION: Ascites visualized in all 4 quadrants. Labs Test 01/05/25 19:03 01/05/25 14:52 Range/Units Ammonia 33 H 11-32 umol/L White Blood Count 4.8 4.4-10.8 10^3/uL Red Blood Count 3.85 L 4.5-5.90 10^6/uL Hemoglobin 14.4 13.5-17.5 g/dL Hematocrit 40.8 L 41.0-53.0 % Mean Corpuscular Volume 106.0 H 80.0-100.0 fL Mean Corpuscular Hemoglobin 37.4 H 28.0-32.0 pg Mean Corpuscular Hemoglobin Concent 35.3 32.0-36.0 g/dL Red Cell Distribution Width 15.1 H 11.8-14.3 % Platelet Count 75 L 140-450 10^3/uL Mean Platelet Volume 7.5 6.9-10.8 fL Neutrophils (%) (Auto) 64.0 37.0-80.0 % Lymphocytes (%) (Auto) 18.0 10.0-50.0 % Monocytes (%) (Auto) 15.1 H 0.0-12.0 % Eosinophils (%) (Auto) 2.3 0.0-7.0 % Basophils (%) (Auto) 0.6 0.0-2.0 % Neutrophils # (Auto) 3.0 1.6-8.6 10 ^3/uL Lymphocytes # (Auto) 0.9 0.4-5.4 10 ^3/uL Monocytes # (Auto) 0.7 0-1.3 10 ^3/uL Eosinophils # (Auto) 0.1 0-0.8 10 ^3/uL Basophils # (Auto) 0 0-0.2 10 ^3/uL Nucleated Red Blood Cells 0.1 % Prothrombin Time 14.9 H 9.3-11.8 sec Prothrombin Time INR 1.46 H 0.9-1.15 Activated Partial Thromboplast Time 30.3 24.5-34.5 SEC Sodium Level 132 L 136-145 mmol/L Potassium Level 3.7 3.5-5.1 mmol/L Chloride Level 99 98-107 mmol/L Carbon Dioxide Level 24 20-31 mmol/L Anion Gap 9 5-15 Blood Urea Nitrogen 6 L 9-23 mg/dL Creatinine 0.82 0.700-1.30 mg/dL Glomerular Filtration Rate Calc 105 >90 mL/min BUN/Creatinine Ratio 7.3 L 10.0-20.0 Serum Glucose 104 74-106 mg/dL Calcium Level 8.5 L 8.7-10.4 mg/dL Total Bilirubin 6.0 H 0.2-1.0 mg/dL Aspartate Amino Transferase (AST) 118 H 13-40 U/L Alanine Aminotransferase (ALT) 46 H 7-40 U/L Alkaline Phosphatase 149 H 46-116 U/L Total Protein 7.9 5.7-8.2 g/dL Albumin 3.0 L 3.2-4.8 g/dL Assessment/Plan Assessment/Plan Assessment Abdominal distention with ascites Liver cirrhosis Transaminitis moderate protein malnutrition with associated hypoalbuminemia Plan discussed with: Patient My Orders Orders - HARSHA OBREGON Procedure Category Date Status Time Propranolol Hcl PHA 01/05/25 In Process Tablet (Inderal 22:00 Lisinopril Tablet PHA 01/06/25 In Process (Zestril Tablet) 10:00 Spironolactone PHA 01/06/25 In Process (Aldactone) 10:00 Furosemide Tablet PHA 01/06/25 In Process (Lasix Tablet) 10:00 * Radiologist Consult CONS 01/05/25 Transmitted 18:34 Basic Metabolic Panel LAB 01/06/25 Logged 04:00 Admit ADMIT 01/05/25 Transmitted 18:34 Ondansetron Hcl PHA 01/05/25 In Process (Zofran) 18:45 Condition: Stable JOSE 01/05/25 In Process 18:34 Bedrest With Bathroom JOSE 01/05/25 In Process Privileg 18:34 Hepatic Diet DIET 01/06/25 Transmitted (50gmpro,2gmna) Breakfast Date of Service: Jan 05, 2025 Billing Provider: HARSHA OBRGEON Common Visit Codes: [id number] INP/OBS CARE (MOD) HARSHA OBREGON Jan 06, 2025 04:03
[2025-01-06 07:09] LABS: Anion Gap 11 (5-15); Carbon Dioxide 22 mmol/L (20-31); Chloride 99 mmol/L (98-107); Potassium 4.3 mmol/L (3.5-5.1)
[2025-01-06 07:11] LABS: Calcium 8.8 mg/dL (8.7-10.4)
[2025-01-06 07:15] LABS: Glucose 91 mg/dL (74-106); Sodium 132 mmol/L (136-145)
[2025-01-06 07:16] LABS: BUN/Creatinine Ratio 10.1 (10.0-20.0); Blood Urea Nitrogen 9 mg/dL (9-23)
--- NOTE | 2025-01-06 10:01 | DVH ---
US PARACENTESIS, HISTORY: ASCITES PROCEDURE: Informed consent was obtained. The patient was placed in supine position. A limited locali zation ultrasound of the abdomen was obtained, and the skin site over the largest pocket of fluid was marked and entry site was prepped with chlorhexidine which was allowed to dry and draped in the usua l sterile fashion. Time out was performed. Following administration of 1% lidocaine local anesthetic, a 5 [place] centesis needle catheter was percutaneously inserted into the peritoneal collection until fluid was aspirated. The catheter was advanced into the fluid collection and [place] [id number] cc of fluid was aspirated and specimen sent for appropriate cultures/cytology/cultures and c ytology. The catheter was then removed and a sterile dressing applied. No immediate complication was identified. FINDINGS: Limited ultrasound imaging demonstrates moderate ascites. Aspirated fluid was clear and ser ous. IMPRESSION: US-guided paracentesis with 10.1L removed.
[2025-01-06] MEDS: ALBUMIN 25% 100 ML IV ONE (10:57)
[2025-01-06] MEDS: LACTULOSE 20Gm/30ML SOLN PO SCH (11:39)
[2025-01-06] MEDS: SPIRONOLACTONE 25 MG TAB PO SCH (11:40)
[2025-01-06] MEDS: FUROSEMIDE 40 MG TAB PO SCH (11:43)
[2025-01-06] MEDS: LISINOPRIL 20 MG TAB PO SCH (11:44)
[2025-01-06 11:57] LABS: Body Fluid Polymorphonuclear 8 % (0-25); Body Fluid Red Blood Cells 801 CUMM (0-2000); Body Fluid White Blood Cells 220 CUMM (0-200)
[2025-01-06 17:05] VITALS: BP 122/62; PULSE 90; RESP 20; TEMP 98.4; O2SAT 99
[2025-01-06 20:00] VITALS: PULSE 90
[2025-01-06 21:00] VITALS: BP 93/56; PULSE 91; RESP 17; TEMP 98.5; O2SAT 99
[2025-01-07 01:00] VITALS: BP 93/52; PULSE 84; RESP 18; TEMP 98; O2SAT 96
[2025-01-07 01:48] VITALS: BP 93/52; PULSE 84; RESP 18; TEMP 98; O2SAT 96
[2025-01-07 05:00] VITALS: BP 101/54; PULSE 80; RESP 18; TEMP 98.4; O2SAT 97
[2025-01-07 12:06] LABS: Protein, Body Fluid 2.7 g/dL (.)
== END 2025-01-07 08:07 | disposition left against medical advice (07) | DRG 280 ==
LOC: ER 13:45 → OVERFLOW 18:34 → WEST WING 01-06 17:03
PROVIDERS: ADMIT Hospitalist; ATTEND Hospitalist
PROC: 0W9G3ZX Drainage of Peritoneal Cavity, Percutaneous Approach, Diagnostic (ICD-10-PCS; principal; 2025-01-06)
DX: K70.31 Alcoholic cirrhosis of liver with ascites (principal); E44.0 Moderate protein-calorie malnutrition; E88.09 Other disorders of plasma-protein metabolism, not elsewhere classified; I10 Essential (primary) hypertension; Z53.29 Procedure and treatment not carried out because of patient's decision for other reasons; F41.9 Anxiety disorder, unspecified; F32.A Depression, unspecified; Z68.31 Body mass index [BMI] 31.0-31.9, adult; Z79.1 Long term (current) use of non-steroidal anti-inflammatories (NSAID); Z79.2 Long term (current) use of antibiotics; Z79.899 Other long term (current) drug therapy; Z87.442 Personal history of urinary calculi
CPT/HCPCS: 36415; 49083; 76705; 76942; 80048; 80053; 82140; 83986; 85025; 85610; 85730; 87205; 89051; 99291; G0378; P9047

== ENCOUNTER 2025-02-02 13:36 | Inpatient (IN) | payer MEDICAID ==
[~2025-02-02] VITALS: Ht 165.1 cm; Wt 86.1 kg
[~2025-02-02 13:36] MED LIST changes: +BUME1TAB3 PO; +CHOL20002 PO; +PANT40TA2 PO; +SPIR25TA8 PO
--- NOTE | 2025-02-02 14:05 | ECG ---
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
[2025-02-02 14:20] LABS: Urine Bacteria None Seen /hpf (None Seen)
--- NOTE | 2025-02-02 14:34 | ED.PDOC ---
GI ASSESSMENT HPI Comments HPI: 54 y/o M, withb PMHX of HTN, ASCITES, LIVER CIRRHOSIS presents to the ED for CC of abdominal pain /distention. Patient complains of current 9/10 pain although he does not appear to be in much distress. Patient endorses, being non-complaint with prescription medications. Patient drinks heavily, denies tobacco or illicit drug usage. No other symptoms or modifying factors present at this time. VITALS: Temp: 100.0 BP: 161/112 HR: 130 RR: 17 SPO2: 98% Past medical history: HTN, ASCITES, LIVER CIRRHOSIS Past surgical history: HERNIA chua: HPI: Poor Historian. REVIEW OF SYSTEMS: CONSTITUTIONAL: Denies acute: fever, diaphoresis, chills, HEAD: Denies acute: headache, photophobia Eyes: Denies acute: Double vision, vision loss, eye pain, eye discharge. EARS: Denies acute: tinnitus, hearing loss, ear discharge, ear pain, THROAT: Denies acute: sore throat, swelling, difficulty swallowing , pain with swallowing, change in voice. NECK: Denies acute: neck pain, neck swelling, stiff neck. HEART: Denies acute : chest pain, palpitations, LUNGS: Denies acute: SOB, wheezing, cough, hemoptysis ABDOMEN: Denies acute: Nausea, Vomiting, diarrhea, melena , hematemesis, hematochezia SKIN: Denies acute: rash, redness, lesions, itchiness. EXTREMITIES: Denies acute: calf pain, numbness, tingling, weakness, denies pain in extremity. Denies acute: Low back pain. Neuro: Denies acute: focal neurological deficit, motor or sensory focal neurological deficit, tremors, seizure like activity, confusion, dizziness, change in mental status, loss of bowel or bladder function, cauda equina like symptoms. : Denies acute: dysuria, hematuria, flank pain, increase in urinary frequency. PSYCH: Denies acute: hallucination, suicidal ideation, homicidal ideation. PHYSICAL EXAM: General: ----mild----acute distress, awake and alert. Foul odor poor hygiene appears homeless but denies being homeless Head: normocephalic, atraumatic. Neck: supple, trachea is midline, no swelling. Throat: Normal phonation. Eyes:, no erythema, no purulent discharge, no proptosis, no icterus. Heart: regular tachycardia no significant murmur appreciated. Lungs: no apparent respiratory distress, Able to speak in full sentences. No wheezing, no rhonchi, no crackles. No stridors Clear to auscultation bilaterally. Abdomen: non tender to palpation, noted distended, soft, no guarding, no rebound, + bowel sounds. Umbilical hernia reducible Neuro: Awake, Alert, oriented to name, self, situation, follows commands GCS=15. Speech is normal. Skin: no petechia, no purpura, no cyanosis, non-pale, not jaundice. Lower extremities: --3/4 b/l- Pitting edema no deformity, no focal swelling, no calf TTP. Makes eye contact. moves all four extremities. Face: no apparent facial droop. Ambulating in the ED independently. Chief Complaint: Abdominal Pain Time Seen by MD: 14:00 Primary Care Provider: none Reviewed Notes: Nurses Notes, Medications, Allergies Allergies: Coded Allergies: NO KNOWN ALLERGIES (Unverified , 03/12/20) Home Meds Active Scripts Magnesium Oxide (MAGNESIUM OXIDE) 400 Mg Tab, 400 MG OR DAILY for 30 Days, #30 TAB Prov:PORSCHE CROWE RESIDENT 07/31/24 Potassium Chloride (Potassium Chloride ER) 20 Meq Tab, 20 MEQ PO DAILY for 30 Days, #30 TAB Prov:PORSCHE CROWE RESIDENT 07/31/24 Multiple Vitamin (Multivitamins) Tab, 1 TAB PO DAILY for 90 Days, #90 TAB 0 Refills Prov:ANUJ MULLIGAN PRECISION AGRONOMIST 04/06/24 Sucralfate (CARAFATE) 1 Gm Tab, 1 GM OR QID for 30 Days, #120 TAB Prov:ANUJ MULLIGAN PRECISION AGRONOMIST 04/06/24 Lisinopril (Lisinopril) 20 Mg Tab, 1 TAB PO DAILYPRN for 60 Days, #60 TAB Prov:ANUJ MULLIGAN PRECISION AGRONOMIST 04/06/24 Propranolol HCl (Propranolol Hydrochloride) 20 Mg Tab, 1 TAB PO BID for 60 Days, #120 TAB Prov:ANUJ MULLIGAN PRECISION AGRONOMIST 04/06/24 Reported Medications Furosemide (Furosemide) 40 Mg Tab, 1 TAB PO DAILY for 14 Days, #14 02/03/25 Cholecalciferol (VITAMIN D3) 2,000 Unit Tab, 1 TAB PO DAILY for 90 Days, #90 02/03/25 Spironolactone (Spironolactone) 25 Mg Tab, 1 TAB PO DAILY for 30 Days, #30 02/03/25 Pantoprazole Sodium Sesquihydr (Protonix) 40 Mg Tab, 1 TAB PO BID for 30 Days, #60 02/02/25 Bumetanide (Bumetanide) 1 Mg Tab, 1 TAB PO DAILY for 30 Days, #30 02/02/25 Lactulose (Lactulose) 10 Gm/15 Ml Sharon, ML PO 11/25/24 Acamprosate Calcium (ACAMPROSATE CALCIUM DR) 333 Mg Tab, 333 MG PO QID, TAB 07/31/24 Folic Acid (Folic Acid) 1 Mg Tab, 1 MG PO DAILY, TAB 07/31/24 Thiamine Hcl (VITAMIN B-1) 100 Mg Tb, 1 TAB PO DAILY for 30 Days, #30 07/31/24 Information Source: Patient Mode of Arrival: Ambulatory Timing: Days Duration: Since onset Prehospital treatment: None Quality: None Vomitus: None Stool: Normal Severity: Moderate Recent: None Recent Hx of: None Pain Location: Diffuse Modifying Factors: Nothing Associated sign and symptoms: None Was a procedure done? Was a procedure done?: No GI differential Dx Differential Diagnosis: Gastritis/PUD, Gastroenteritis, Electrolyte Imbalance, Food Poisoning, Bacterial, Viral, Other (DDX include but not limited to diverticulitis, colitis, gastroenteritis, acute abdomen, SBO, enteritis, constipation, volvulus, appendicitis, Gallbladder disease, choledocolithiasis, ascending cholangitis, pancreatitis, intraAbdominal mass/neoplasm, hepatitis, U TI, pylonephritis, kidney stone, aneurysm, dissection, Inflammatory bowel disease, gastroparesis, ischemic bowel.) X-Ray, Labs, Meds, VS Vital Signs Date Time Temp Pulse Resp B/P (MAP) Pulse Ox O2 Delivery O2 Flow Rate FiO2 02/02/25 21:03 22 96 Room Air* 0 21 21 02/02/25 20:16 153/68 02/02/25 19:35 98.9 130 22 153/68 (96) 97 98.9 02/02/25 17:44 98.6 122 22 160/102 (121) 97 98.6 02/02/25 13:55 126 02/02/25 13:46 100.0 130 17 161/112 (128) 98 100.0 Lab Test 02/02/25 16:40 02/02/25 14:51 02/02/25 13:50 Range/Units Lactic Acid Level 2.8 *H 2.7 *H 0.4-2.0 mmol/L Troponin I High Sensitivity 4 4 </=54 ng/L White Blood Count 5.6 4.4-10.8 10^3/uL Red Blood Count 3.85 L 4.5-5.90 10^6/uL Hemoglobin 14.1 13.5-17.5 g/dL Hematocrit 40.1 L 41.0-53.0 % Mean Corpuscular Volume 104.2 H 80.0-100.0 fL Mean Corpuscular Hemoglobin 36.6 H 28.0-32.0 pg Mean Corpuscular Hemoglobin Concent 35.1 32.0-36.0 g/dL Red Cell Distribution Width 14.0 11.8-14.3 % Platelet Count 99 L 140-450 10^3/uL Mean Platelet Volume 6.7 L 6.9-10.8 fL Neutrophils (%) (Auto) 67.3 37.0-80.0 % Lymphocytes (%) (Auto) 17.5 10.0-50.0 % Monocytes (%) (Auto) 13.4 H 0.0-12.0 % Eosinophils (%) (Auto) 1.3 0.0-7.0 % Basophils (%) (Auto) 0.5 0.0-2.0 % Neutrophils # (Auto) 3.7 1.6-8.6 10 ^3/uL Lymphocytes # (Auto) 1.0 0.4-5.4 10 ^3/uL Monocytes # (Auto) 0.7 0-1.3 10 ^3/uL Eosinophils # (Auto) 0.1 0-0.8 10 ^3/uL Basophils # (Auto) 0 0-0.2 10 ^3/uL Nucleated Red Blood Cells 0.0 % Prothrombin Time 13.8 H 9.3-11.8 sec Prothrombin Time INR 1.34 H 0.9-1.15 Activated Partial Thromboplast Time 30.0 24.5-34.5 SEC Sodium Level 132 L 136-145 mmol/L Potassium Level 4.3 3.5-5.1 mmol/L Chloride Level 103 98-107 mmol/L Carbon Dioxide Level 22 20-31 mmol/L Anion Gap 7 5-15 Blood Urea Nitrogen < 5 L 9-23 mg/dL Creatinine 0.73 0.700-1.30 mg/dL Glomerular Filtration Rate Calc 109 >90 mL/min BUN/Creatinine Ratio 6.8 L 10.0-20.0 Serum Glucose 128 H 74-106 mg/dL Calcium Level 8.2 L 8.7-10.4 mg/dL Magnesium Level 1.5 L 1.6-2.6 mg/dL Total Bilirubin 4.1 H 0.2-1.0 mg/dL Aspartate Amino Transferase (AST) 122 H 13-40 U/L Alanine Aminotransferase (ALT) 50 H 7-40 U/L Alkaline Phosphatase 153 H 46-116 U/L B-Type Natriuretic Peptide 10.82 0-100 pg/mL Total Protein 7.8 5.7-8.2 g/dL Albumin 2.9 L 3.2-4.8 g/dL Lipase 38 12-53 U/L Urine Color Yellow Yellow Urine Clarity Turbid H Clear Urine pH 6.0 5.0-9.0 Urine Specific West 1.009 1.001-1.035 Urine Protein Trace H Negative Urine Ketones Negative Negative Urine Blood 1+ H Negative /uL Urine Nitrite Negative Negative Urine Bilirubin 1+ Negative Urine Urobilinogen 12 H Negative mg/dL Urine Leukocyte Esterase Negative Negative /uL Urine RBC <1 0 - 3 /hpf Urine Microscopic WBC 3 0-3 /HPF Urine Squamous Epithelial Cells None seen <5 /hpf Urine Bacteria None seen None Seen /hpf Urine Hyaline Casts Few 0 - 2 /lpf Urine Mucus Few None Seen Urine Sperm Present None Seen /hpf Urine Glucose Normal Normal mg/dL [place] [address] Ph: [phone] DIAGNOSTIC IMAGING Diagnostic Imaging Report : [id number] Signed PATIENT: JIAN ROSA ACCT: [id number] UNIT: [id number] : 1970 LOC: ER ROOM / BED: / AGE / SEX: 54 / M ADM STATUS: REG ER SERVICE 1401 ORDERING PHYSICIAN: MARTA WHITAKER DO PROCEDURE(s): CXRP - CHEST PORTABLE REASON: abd distension ORDER NUMBER(s): [id number], ACCESSION NUMBER(s): [id number] CHEST RADIOGRAPH Indication: abd distension Technique: Single frontal view of the chest was obtained COMPARISON: XY CHEST PORTABLE on DOS: 01/31/23, CXRP on DOS: 05/01/22, CHEST PORTABLE on DOS: 05/01/22 FINDINGS: Lines and Tubes: None Lungs: Bibasilar subsegmental atelectasis. Pleura: No effusion. No pneumothorax. Cardiomediastinal contours: Unremarkable Bones: Unremarkable IMPRESSION: Bibasilar subsegmental atelectasis. ATED BY: URIEL RODRIGUES MD DICTATED DATE/TIME: 02/02/251433 SIGNED BY: URIEL RODRIGUES MD SIGNED DATE/TIME: 02/02/251433 CC: [place] [address] Ph: [phone] DIAGNOSTIC IMAGING Diagnostic Imaging Report : [id number] Signed PATIENT: JIAN ROSA ACCT: [id number] UNIT: [id number] : 1970 LOC: ER ROOM / BED: / AGE / SEX: 54 / M ADM STATUS: REG ER SERVICE 1401 ORDERING PHYSICIAN: MARTA WHITAKER DO PROCEDURE(s): ABPL - CT AB PEL WO CON-NO ORAL OR IV REASON: ascites ORDER NUMBER(s): [id number], ACCESSION NUMBER(s): [id number] CT ABDOMEN AND PELVIS WITHOUT CONTRAST CLINICAL HISTORY: ascites TECHNIQUE: Multiple contiguous axial images of the abdomen and pelvis without intravenous contrast. The images were reformatted degenerate coronal and sagittal reconstructions. All CT scans at this medical facility are performed using dose modulation techniques as appropriate to a performed exam including the following:Automated exposure control was utilized; adjustment of the MA and/or KV according to patient size; and use of iterative reconstruction technique. Radiation Dose Information: CT Dose: CTDI volume is 21.44 mGy. Dose-length product is 1159.29 mGy*cm Comparison: CT CT AB PEL WO CON-NO ORAL OR IV on DOS: 11/25/24, CT CT AB PEL WO CON-NO ORAL OR IV on DOS: 07/29/24 FINDINGS: Evaluation of the abdomen and pelvis is limited without intravenous contrast. The liver again demonstrates cirrhotic morphology with heterogeneous attenuation. There are stable paraesophageal varices. There are calcified gallstones in the gallbladder. The pancreas, kidneys, adrenal glands, and spleen appear within normal limits. There is large amount of ascites. There is no free intraperitoneal air. There is a moderate size umbilical hernia containing ascites. The stomach grossly appears unremarkable. The small and large bowel loops demonstrate normal caliber and distribution. A normal appearing appendix is seen in the right lower quadrant abdomen. The abdominal aorta and IVC appear within normal limits. The bladder appears unremarkable for the degree of distention. Pelvic organ appears within normal limits. There is no gross evidence of a pelvic mass. There is fluid in the pelvis. There is mild atelectasis in the lung bases. There is no acute osseous abnormality. IMPRESSION: 1. Redemonstration of cirrhotic liver with large amount of ascites in esophageal varices. 2. Cholelithiasis. 3. Moderate size umbilical hernia containing ascites. HS:Y ATED BY: CHRIS MCMANUS MD DICTATED DATE/TIME: 02/02/251452 SIGNED BY: CHRIS MCMANUS MD SIGNED DATE/TIME: 02/02/251452 CC: [place] [address] Ph: [phone] DIAGNOSTIC IMAGING Diagnostic Imaging Report : [id number] Signed PATIENT: JIAN ROSA ACCT: [id number] UNIT: [id number] : 1970 LOC: ER ROOM / BED: / AGE / SEX: 54 / M ADM STATUS: REG ER SERVICE 0000 ORDERING PHYSICIAN: MARTA WHITAKER DO PROCEDURE(s): ABDL - ABDOMEN LIMITED REASON: FLUID CHECK ORDER NUMBER(s): [id number], ACCESSION NUMBER(s): [id number] Limited Abdominal Ultrasound - Ascites Evaluation Clinical History: FLUID CHECK Comparison: US ABDOMEN LIMITED on DOS: 01/05/25, US ABDOMEN LIMITED on DOS: 07/30/24 Technique/Findings/Impression: Limited sonographic evaluation of the abdomen was performed to assess for ascites. There is moderate ascites detected. ATED BY: URIEL RODRIGUES MD DICTATED DATE/TIME: 02/02/251625 SIGNED BY: URIEL RODRIGUES MD SIGNED DATE/TIME: 02/02/251625 CC: Time of 1ST Reevaluation: 14:30 Reevaluation 1ST: Unchanged Patient Education/Counseling: Diagnosis, Treatment Family Education/Counseling: Other Comments Patient presented with the above HPI.---abdominal pain/distention---workup was initiated. patient was found with the above mentioned diagnosis. the following medications were ordered: please refer to order lists of meds and tests obtained by myself Dr. Whitaker. Patient ED course and VS have been stabilized. Patient has been reassessed in the ED and remained in a stable condition. Pertinent incidental findings were discussed with the patient and/or family. Patient/family voices understanding and is agreeable with plan. Patient has been observed in the ED adequate length of time to insure improvement/stability. Escalation of care considered: Consideration of escalation to observation or admission Sepsis protocol was initiated. Fluids gestation was appearing conservative given the patient's presentation of volume overload. Lasix was given instead. Patient was ADMITTED to the medicine team for further evaluation and treatment of their presentation. All the reports of any imaging studies that were ordered by myself were reviewed by myself. Departure 1 Departure Time of Disposition: 17:17 Impression: Primary Impression: Sepsis Additional Impression: Ascites Disposition: ADMITTED INPATIENT Admit to: [facility] Condition: Guarded Additional Instructions: [place] [address] Ph: [phone] DIAGNOSTIC IMAGING Diagnostic Imaging Report : [id number] Signed PATIENT: JIAN ROSA ACCT: [id number] UNIT: [id number] : 1970 LOC: ER ROOM / BED: / AGE / SEX: 54 / M ADM STATUS: REG ER SERVICE 1401 ORDERING PHYSICIAN: MARTA WHITAKER DO PROCEDURE(s): CXRP - CHEST PORTABLE REASON: abd distension ORDER NUMBER(s): [id number], ACCESSION NUMBER(s): [id number] CHEST RADIOGRAPH Indication: abd distension Technique: Single frontal view of the chest was obtained COMPARISON: XY CHEST PORTABLE on DOS: 01/31/23, CXRP on DOS: 05/01/22, CHEST PORTABLE on DOS: 05/01/22 FINDINGS: Lines and Tubes: None Lungs: Bibasilar subsegmental atelectasis. Pleura: No effusion. No pneumothorax. Cardiomediastinal contours: Unremarkable Bones: Unremarkable IMPRESSION: Bibasilar subsegmental atelectasis. ATED BY: URIEL RODRIGUES MD DICTATED DATE/TIME: 02/02/251433 SIGNED BY: URIEL RODRIGUES MD SIGNED DATE/TIME: 02/02/251433 CC: [place] [address] Ph: [phone] DIAGNOSTIC IMAGING Diagnostic Imaging Report : [id number] Signed PATIENT: JIAN ROSA ACCT: [id number] UNIT: [id number] : 1970 LOC: ER ROOM / BED: / AGE / SEX: 54 / M ADM STATUS: REG ER SERVICE 1401 ORDERING PHYSICIAN: MARTA WHITAKER DO PROCEDURE(s): ABPL - CT AB PEL WO CON-NO ORAL OR IV REASON: ascites ORDER NUMBER(s): [id number], ACCESSION NUMBER(s): [id number] CT ABDOMEN AND PELVIS WITHOUT CONTRAST CLINICAL HISTORY: ascites TECHNIQUE: Multiple contiguous axial images of the abdomen and pelvis without intravenous contrast. The images were reformatted degenerate coronal and sagittal reconstructions. All CT scans at this medical facility are performed using dose modulation techniques as appropriate to a performed exam including the following:Automated exposure control was utilized; adjustment of the MA and/or KV according to patient size; and use of iterative reconstruction technique. Radiation Dose Information: CT Dose: CTDI volume is 21.44 mGy. Dose-length product is 1159.29 mGy*cm Comparison: CT CT AB PEL WO CON-NO ORAL OR IV on DOS: 11/25/24, CT CT AB PEL WO CON-NO ORAL OR IV on DOS: 07/29/24 FINDINGS: Evaluation of the abdomen and pelvis is limited without intravenous contrast. The liver again demonstrates cirrhotic morphology with heterogeneous attenuation. There are stable paraesophageal varices. There are calcified gallstones in the gallbladder. The pancreas, kidneys, adrenal glands, and spleen appear within normal limits. There is large amount of ascites. There is no free intraperitoneal air. There is a moderate size umbilical hernia containing ascites. The stomach grossly appears unremarkable. The small and large bowel loops demonstrate normal caliber and distribution. A normal appearing appendix is seen in the right lower quadrant abdomen. The abdominal aorta and IVC appear within normal limits. The bladder appears unremarkable for the degree of distention. Pelvic organ appears within normal limits. There is no gross evidence of a pelvic mass. There is fluid in the pelvis. There is mild atelectasis in the lung bases. There is no acute osseous abnormality. IMPRESSION: 1. Redemonstration of cirrhotic liver with large amount of ascites in esophageal varices. 2. Cholelithiasis. 3. Moderate size umbilical hernia containing ascites. HS:Y ATED BY: CHRIS MCMANUS MD DICTATED DATE/TIME: 02/02/251452 SIGNED BY: CHRIS MCMANUS MD SIGNED DATE/TIME: 02/02/251452 CC: [place] [address] Ph: [phone] DIAGNOSTIC IMAGING Diagnostic Imaging Report : [id number] Signed PATIENT: JIAN ROSA ACCT: [id number] UNIT: [id number] : 1970 LOC: ER ROOM / BED: / AGE / SEX: 54 / M ADM STATUS: REG ER SERVICE 0000 ORDERING PHYSICIAN: MARTA WHITAKER DO PROCEDURE(s): ABDL - ABDOMEN LIMITED REASON: FLUID CHECK ORDER NUMBER(s): [id number], ACCESSION NUMBER(s): [id number] Limited Abdominal Ultrasound - Ascites Evaluation Clinical History: FLUID CHECK Comparison: US ABDOMEN LIMITED on DOS: 01/05/25, US ABDOMEN LIMITED on DOS: 07/30/24 Technique/Findings/Impression: Limited sonographic evaluation of the abdomen was performed to assess for ascites. There is moderate ascites detected. ATED BY: URIEL RODRIGUES MD DICTATED DATE/TIME: 02/02/251625 SIGNED BY: URIEL RODRIGUES MD SIGNED DATE/TIME: 02/02/251625 CC: Discharged With: Self Critical Care Note Critical Care Time?: Yes (35 min-critical care time only) Heart Score Heart Score: Heart Score Response (Comments) Value History N/A 0 EKG N/A 0 Age N/A 0 Risk Factors N/A 0 Troponin N/A 0 Total 0 I personally scribed for JULIANNE,MARTA J DO ([email or web address]) on 02/02/25 at 14:34. Electronically submitted by Cara Nuñez ([email or web address]). I personally scribed for JULIANNE,MARTA J DO ([email or web address]) on 02/02/25 at 18:22. Electronically submitted by Cara Nuñez ([email or web address]). I personally scribed for JULIANNE,MARTA J DO ([email or web address]) on 02/02/25 at 18:23. Electronically submitted by Cara Nuñez ([email or web address]). I personally scribed for JULIANNE,MARTA J DO ([email or web address]) on 02/02/25 at 18:24. Electronically submitted by Cara Nuñez ([email or web address]). I personally scribed for JULIANNE,MARTA J DO ([email or web address]) on 02/02/25 at 18:33. Electronically submitted by Cara Nuñez ([email or web address]). I personally scribed for JULIANNE,MARTA J DO ([email or web address]) on 02/02/25 at 19:43. Electronically submitted by Cara Nuñez ([email or web address]). JULIANNE,MARTA J DO Feb 02, 2025 14:34
--- NOTE | 2025-02-02 14:34 | ED.PDOC ---
GI ASSESSMENT HPI Comments chua: HPI: Poor Historian. Past Medical History: Past Surgical History: REVIEW OF SYSTEMS: CONSTITUTIONAL: Denies acute: fever, diaphoresis, chills, HEAD: Denies acute: headache, photophobia Eyes: Denies acute: Double vision, vision loss, eye pain, eye discharge. EARS: Denies acute: tinnitus, hearing loss, ear discharge, ear pain, THROAT: Denies acute: sore throat, swelling, difficulty swallowing , pain with swallowing, change in voice. NECK: Denies acute: neck pain, neck swelling, stiff neck. HEART: Denies acute : chest pain, palpitations, LUNGS: Denies acute: SOB, wheezing, cough, hemoptysis ABDOMEN: Denies acute: Nausea, Vomiting, diarrhea, melena , hematemesis, hematochezia SKIN: Denies acute: rash, redness, lesions, itchiness. EXTREMITIES: Denies acute: calf pain, numbness, tingling, weakness, denies pain in extremity. Denies acute: Low back pain. Neuro: Denies acute: focal neurological deficit, motor or sensory focal neurological deficit, tremors, seizure like activity, confusion, dizziness, change in mental status, loss of bowel or bladder function, cauda equina like symptoms. : Denies acute: dysuria, hematuria, flank pain, increase in urinary frequency. PSYCH: Denies acute: hallucination, suicidal ideation, homicidal ideation. PHYSICAL EXAM: General: ----mild----acute distress, awake and alert. Head: normocephalic, atraumatic. Neck: supple, trachea is midline, no swelling. Throat: Normal phonation. Eyes:, no erythema, no purulent discharge, no proptosis, no icterus. Heart: regular tachycardia no significant murmur appreciated. Lungs: no apparent respiratory distress, Able to speak in full sentences. No wheezing, no rhonchi, no crackles. No stridors Clear to auscultation bilaterally. Abdomen: non tender to palpation, noted distended, soft, no guarding, no rebound, + bowel sounds. Umbilical hernia reducible Neuro: Awake, Alert, oriented to name, self, situation, follows commands GCS=15. Speech is normal. Skin: no petechia, no purpura, no cyanosis, non-pale, not jaundice. Lower extremities: --3/4 b/l- Pitting edema no deformity, no focal swelling, no calf TTP. Makes eye contact. moves all four extremities. Face: no apparent facial droop. Ambulating in the ED independently. ED COURSE: Chief Complaint: Abdominal Pain Time Seen by MD: 13:56 Primary Care Provider: none Reviewed Notes: Nurses Notes, Allergies Allergies: Coded Allergies: NO KNOWN ALLERGIES (Unverified , 03/12/20) Home Meds Active Scripts Thiamine Hcl (VITAMIN B-1) 100 Mg Tb, 100 MG PO DAILY for 30 Days, #30 TAB 3 Refills Prov:KAYLAN MELVIN DO 11/27/24 Spironolactone (Aldactone) 25 Mg Tab, 25 MG PO DAILY for 30 Days, #30 TAB 3 Refills Prov:KAYLAN MELVIN DO 11/27/24 Spironolactone (Spironolactone) 100 Mg Tab, 1 TAB PO DAILY for 90 Days, #90 TAB 3 Refills Prov:ALCIDES SIMON MD 10/22/24 Naproxen (Naproxen) 500 Mg Tab, 500 MG PO BID, #30 TAB Prov:JIMBO ALEXANDER 08/21/24 Sulfamethoxazole W/Trimethopri (Bactrim Ds Tablet) 1 Tab Tb, 1 TAB PO BID for 10 Days, #20 TAB Prov:JIMBO ALEXANDER 08/21/24 Magnesium Oxide (MAGNESIUM OXIDE) 400 Mg Tab, 400 MG OR DAILY for 30 Days, #30 TAB Prov:PORSCHE CROWE RESIDENT 07/31/24 Potassium Chloride (Potassium Chloride ER) 20 Meq Tab, 20 MEQ PO DAILY for 30 Days, #30 TAB Prov:PORSCHE CROWE RESIDENT 07/31/24 Furosemide (Lasix) 40 Mg Tab, 40 MG PO DAILY for 30 Days, #30 TAB Prov:PORSCHE CROWE RESIDENT 07/31/24 Spironolactone (Aldactone) 100 Mg Tab, 100 MG PO DAILY for 30 Days, #30 TAB 2 Refills Prov:PORSCHE CROWE RESIDENT 07/31/24 Multiple Vitamin (Multivitamins) Tab, 1 TAB PO DAILY for 90 Days, #90 TAB 0 Refills Prov:AMELIE MULLIGANPH ADJUNCT PHYSICAL EDUCATION INSTRUCTOR 04/06/24 Lactulose (Enulose) 10 Gm/15 Ml Sharon, 30 ML PO DAILY for 30 Days, #473 ML Prov:AMELIE MULLIGANPH ADJUNCT PHYSICAL EDUCATION INSTRUCTOR 04/06/24 Sucralfate (CARAFATE) 1 Gm Tab, 1 GM OR QID for 30 Days, #120 TAB Prov:AMELIE MULLIGANPH ADJUNCT PHYSICAL EDUCATION INSTRUCTOR 04/06/24 Lisinopril (Lisinopril) 20 Mg Tab, 1 TAB PO DAILYPRN for 60 Days, #60 TAB Prov:AMELIE MULLIGANPH ADJUNCT PHYSICAL EDUCATION INSTRUCTOR 04/06/24 Propranolol HCl (Propranolol Hydrochloride) 20 Mg Tab, 1 TAB PO BID for 60 Days, #120 TAB Prov:AMELIE MULLIGANPH ADJUNCT PHYSICAL EDUCATION INSTRUCTOR 04/06/24 Furosemide (Furosemide) 40 Mg Tab, 40 MG PO DAILY for 60 Days, #60 TAB Prov:AMELIE MULLIGANPH ADJUNCT PHYSICAL EDUCATION INSTRUCTOR 04/06/24 Reported Medications Lactulose (Lactulose) 10 Gm/15 Ml Sharon, ML PO 11/25/24 Acamprosate Calcium (ACAMPROSATE CALCIUM DR) 333 Mg Tab, 333 MG PO QID, TAB 07/31/24 Folic Acid (Folic Acid) 1 Mg Tab, 1 MG PO DAILY, TAB 07/31/24 Thiamine Hcl (VITAMIN B-1) 100 Mg Tb, 100 MG PO DAILY, TAB 07/31/24 Omeprazole (Omeprazole Dr) 20 Mg Cap, 20 MG PO DAILY, CAP 07/31/24 Mode of Arrival: Ambulatory Past Medical History PAST MEDICAL HISTORY: Anxiety, Depression, HTN, Kidney Stones, Liver Surgical History: Hernia Repair Family History Family History: Reviewed,noncontributory to illness, Family hx of Cancer Social History Smoker: Non-Smoker Alcohol: Heavy Drugs: Denies Drug Use Lives In: Home X-Ray, Labs, Meds, VS Vital Signs Date Time Temp Pulse Resp B/P (MAP) Pulse Ox O2 Delivery O2 Flow Rate FiO2 02/02/25 17:44 98.6 122 22 160/102 (121) 97 98.6 02/02/25 13:55 126 02/02/25 13:46 100.0 130 17 161/112 (128) 98 100.0 Lab Test 02/02/25 16:40 02/02/25 14:51 02/02/25 13:50 Range/Units Lactic Acid Level 2.8 *H 2.7 *H 0.4-2.0 mmol/L Troponin I High Sensitivity 4 4 </=54 ng/L White Blood Count 5.6 4.4-10.8 10^3/uL Red Blood Count 3.85 L 4.5-5.90 10^6/uL Hemoglobin 14.1 13.5-17.5 g/dL Hematocrit 40.1 L 41.0-53.0 % Mean Corpuscular Volume 104.2 H 80.0-100.0 fL Mean Corpuscular Hemoglobin 36.6 H 28.0-32.0 pg Mean Corpuscular Hemoglobin Concent 35.1 32.0-36.0 g/dL Red Cell Distribution Width 14.0 11.8-14.3 % Platelet Count 99 L 140-450 10^3/uL Mean Platelet Volume 6.7 L 6.9-10.8 fL Neutrophils (%) (Auto) 67.3 37.0-80.0 % Lymphocytes (%) (Auto) 17.5 10.0-50.0 % Monocytes (%) (Auto) 13.4 H 0.0-12.0 % Eosinophils (%) (Auto) 1.3 0.0-7.0 % Basophils (%) (Auto) 0.5 0.0-2.0 % Neutrophils # (Auto) 3.7 1.6-8.6 10 ^3/uL Lymphocytes # (Auto) 1.0 0.4-5.4 10 ^3/uL Monocytes # (Auto) 0.7 0-1.3 10 ^3/uL Eosinophils # (Auto) 0.1 0-0.8 10 ^3/uL Basophils # (Auto) 0 0-0.2 10 ^3/uL Nucleated Red Blood Cells 0.0 % Prothrombin Time 13.8 H 9.3-11.8 sec Prothrombin Time INR 1.34 H 0.9-1.15 Activated Partial Thromboplast Time 30.0 24.5-34.5 SEC Sodium Level 132 L 136-145 mmol/L Potassium Level 4.3 3.5-5.1 mmol/L Chloride Level 103 98-107 mmol/L Carbon Dioxide Level 22 20-31 mmol/L Anion Gap 7 5-15 Blood Urea Nitrogen < 5 L 9-23 mg/dL Creatinine 0.73 0.700-1.30 mg/dL Glomerular Filtration Rate Calc 109 >90 mL/min BUN/Creatinine Ratio 6.8 L 10.0-20.0 Serum Glucose 128 H 74-106 mg/dL Calcium Level 8.2 L 8.7-10.4 mg/dL Magnesium Level 1.5 L 1.6-2.6 mg/dL Total Bilirubin 4.1 H 0.2-1.0 mg/dL Aspartate Amino Transferase (AST) 122 H 13-40 U/L Alanine Aminotransferase (ALT) 50 H 7-40 U/L Alkaline Phosphatase 153 H 46-116 U/L B-Type Natriuretic Peptide 10.82 0-100 pg/mL Total Protein 7.8 5.7-8.2 g/dL Albumin 2.9 L 3.2-4.8 g/dL Lipase 38 12-53 U/L Urine Color Yellow Yellow Urine Clarity Turbid H Clear Urine pH 6.0 5.0-9.0 Urine Specific [place] 1.009 1.001-1.035 Urine Protein Trace H Negative Urine Ketones Negative Negative Urine Blood 1+ H Negative /uL Urine Nitrite Negative Negative Urine Bilirubin 1+ Negative Urine Urobilinogen 12 H Negative mg/dL Urine Leukocyte Esterase Negative Negative /uL Urine RBC <1 0 - 3 /hpf Urine Microscopic WBC 3 0-3 /HPF Urine Squamous Epithelial Cells None seen <5 /hpf Urine Bacteria None seen None Seen /hpf Urine Hyaline Casts Few 0 - 2 /lpf Urine Mucus Few None Seen Urine Sperm Present None Seen /hpf Urine Glucose Normal Normal mg/dL I personally scribed for MARTA WHITAKER DO ([email or web address]) on 02/02/25 at 18:26. Electron ically submitted by Cara Nuñez ([email or web address]). MARTA WHITAKER DO Feb 02, 2025 14:34
[2025-02-02 14:35] LABS: Urine Blood 1+ /uL (Negative); Urine Clarity Turbid (Clear); Urine Color Yellow (Yellow); Urine Hyaline Cast FEW /lpf (0 - 2); Urine Mucus FEW (None Seen); Urine Protein, UAD TRACE (Negative); Urine Specific Gravity 1.009 (1.001-1.035); Urine Sperm PRESENT /hpf (None Seen); Urine Squamous Epithelial Cell None Seen /hpf (<5); Urine Urobilinogen 12 mg/dL (Negative); Urine WBC 3 /HPF (0-3)
--- NOTE | 2025-02-02 14:55 | DVH ---
CT ABDOMEN AND PELVIS WITHOUT CONTRAST CLINICAL HISTORY: ascites TECHNIQUE: Multiple contiguous axial images of the abdomen and pelvis without intravenous contrast. T he images were reformatted degenerate coronal and sagittal reconstructions. All CT scans at this medical facility are performed using dose modulation techniques as appropriate t o a performed exam including the following:Automated exposure control was utilized; adjustment of the MA and/or KV according to patient size; and use of iterative reconstruction technique. Radiation Dose Information: CT Dose: CTDI volume is 21.44 mGy. Dose-length product is 1159.29 mGy*cm Comparison: CT CT AB PEL WO CON-NO ORAL OR IV on DOS: 11/25/24, CT CT AB PEL WO CON-NO ORAL OR IV on D OS: 07/29/24 FINDINGS: Evaluation of the abdomen and pelvis is limited without intravenous contrast. The liver again demonstrates cirrhotic morphology with heterogeneous attenuation. There are stable pa raesophageal varices. There are calcified gallstones in the gallbladder. The pancreas, kidneys, adrenal glands, and spleen appear within normal limits. There is large amount of ascites. There is no free intraperitoneal air. There is a moderate size umb ilical hernia containing ascites. The stomach grossly appears unremarkable. The small and large bowel loops demonstrate normal caliber and distribution. A normal appearing appendix is seen in the right lower quadrant abdomen. The abdominal aorta and IVC appear within normal limits. The bladder appears unremarkable for the degree of distention. Pelvic organ appears within normal pisano its. There is no gross evidence of a pelvic mass. There is fluid in the pelvis. There is mild atelectasis in the lung bases. There is no acute osseous abnormality. IMPRESSION: 1. Redemonstration of cirrhotic liver with large amount of ascites in esophageal varices. 2. Cholelithiasis. 3. Moderate size umbilical hernia containing ascites. HS:Y
[2025-02-02 15:16] LABS: Eosinophils # (auto) 0.1 10 ^3/uL (0-0.8); Monocytes # (auto) 0.7 10 ^3/uL (0-1.3); Neutrophils # (auto) 3.7 10 ^3/uL (1.6-8.6); White Blood Cell 5.6 10^3/uL (4.4-10.8)
[2025-02-02 15:18] LABS: Basophils # (auto) 0 10 ^3/uL (0-0.2); Basophils % (auto) 0.5 % (0.0-2.0); Eosinophils % (auto) 1.3 % (0.0-7.0); Hematocrit 40.1 % (41.0-53.0); Hemoglobin 14.1 g/dL (13.5-17.5); Lymphocytes % (auto) 17.5 % (10.0-50.0); Mean Corpuscular Hemoglobin 36.6 pg (28.0-32.0); Mean Corpuscular Hgb Conc. 35.1 g/dL (32.0-36.0); Mean Corpuscular Volume 104.2 fL (80.0-100.0); Monocytes % (auto) 13.4 % (0.0-12.0); Neutrophils % (auto) 67.3 % (37.0-80.0); Platelet Count (auto) 99 10^3/uL (140-450); Red Blood Cells 3.85 10^6/uL (4.5-5.90)
[2025-02-02 15:29] LABS: Anion Gap 7 (5-15); Carbon Dioxide 22 mmol/L (20-31); Chloride 103 mmol/L (98-107); Lipase 38 U/L (12-53); Potassium 4.3 mmol/L (3.5-5.1); Total Protein 7.8 g/dL (5.7-8.2)
[2025-02-02 15:32] LABS: INR 1.34 (0.9-1.15); Prothrombin Time 13.8 sec (9.3-11.8)
[2025-02-02 15:37] LABS: Alanine Aminotransferase 50 U/L (7-40); Albumin 2.9 g/dL (3.2-4.8); Alkaline Phosphatase 153 U/L (46-116); Aspartate Aminotransferase 122 U/L (13-40); BUN/Creatinine Ratio 6.8 (10.0-20.0); Bilirubin, Total 4.1 mg/dL (0.2-1.0); Blood Urea Nitrogen < 5 mg/dL (9-23); Calcium 8.2 mg/dL (8.7-10.4); Glucose 128 mg/dL (74-106); Magnesium 1.5 mg/dL (1.6-2.6); Sodium 132 mmol/L (136-145)
[2025-02-02 15:44] LABS: Lactic Acid w/Reflex 2.7 mmol/L (0.4-2.0)
--- NOTE | 2025-02-02 16:28 | DVH ---
Limited Abdominal Ultrasound - Ascites Evaluation Clinical History: FLUID CHECK Comparison: US ABDOMEN LIMITED on DOS: 01/05/25, US ABDOMEN LIMITED on DOS: 07/30/24 Technique/Findings/Impression: Limited sonographic evaluation of the abdomen was performed to assess for ascites. There is moderate ascites detected.
[2025-02-02] MEDS: MAGNESIUM SULFATE 1GM/100ML 100 ML IV ONE (20:16)
[2025-02-02] MEDS: FUROSEMIDE 100 MG/10ML VIAL IV ONE (20:16)
[2025-02-02] MEDS: cefTRIAXone 1GM/50ML D5W 50 ML IV ONE (20:16)
[2025-02-02 21:03] VITALS: RESP 22; O2SAT 96
--- NOTE | 2025-02-02 22:54 | DVHHPRES ---
History of Present Illness Resident Creating Document: JUSTO RETANA RESIDENT Reason for Visit: abdominal distension and pain History of Present Illness This is a 54-year-old male with a history of liver cirrhosis status post multiple paracentesis presented to the ED tonight today with progressively distended abdomen making it difficult for him to breathe and feeling tired. Patient was actually seen here on January 07 for abdominal pain and distention where he had paracentesis. Patient's home medications include bumetanide, propranolol, pantoprazole and folic acid. Patient admits that has not been compliant with his medication he still drinks. His last drink was actually this morning. He denies any fever, hematemesis, but admits to dark tarry stool and lower abdoinal pain. Patient is not confused at this time. In the ED initial vitals were temperature of 100, pulse of 130 respiratory of 32 and blood pressure of 161/112. His lab values were showed mildly mild hypo natremia elevated lactic acid 2.7 and magnesium was low at 1.5. Past medical history: Cirrhosis, hypertension, depression, alcoholism Past surgical history: Hernia repair Social History: Patient lives with friends. He said he was at any job whatever he can find fine his hands do he would do it. Family history is noncontributory Past Medical History See HPI Past Surgical History See HPI Family History See HPI Review of Systems Review of Systems Constitutional: Denies fever no chills; feeling of malaise HEENT: Denies headache, ear pain, ear discharges, conjunctivitis, nasal discharge throat pain Cardiovascular: Denies chest pain, palpitation, orthopnea, PND, or pedal edema Respiratory: Denies shortness of breath, cough cough, sputum production, hemoptysis, GI: abdominal pain, nausea,vomiting, diarrhea distended abdomen, Hematemesis, hematochezia, : Denies frequency, urgency, hematuria, Endocrine: Denies unintentional weight gain or weight loss, feeling of hot flashes, Ankit: Denies easy bruising, bleeding disorders, epistaxis Musculoskeletal: Denies joint pains, muscle aches Psych: No evidence of depression, katherine, suicidal ideation Allergies: Coded Allergies: NO KNOWN ALLERGIES (Unverified , 03/12/20) Exam Vital Signs Vital Signs Date Time Temp Pulse Resp B/P (MAP) Pulse Ox O2 Delivery O2 Flow Rate FiO2 02/02/25 21:03 22 96 Room Air* 0 21 21 02/02/25 20:16 153/68 02/02/25 19:35 98.9 130 98.9 Exam General Appearance: Alert, Oriented X3, Cooperative, mild acute distress HEENT: Atraumatic, PERRLA, EOMI, Mucous membrane moist/pink Respiratory: tachypneic, Clear to auscultation, Normal air movement Cardiovascular: tachycardia, S1, Normal S2, No murmurs, no chest wall t enderness Abdominal: distention, tenderness, bowel sounds present, no scars noted Extremities: No clubbing, No cyanosis, No edema, Normal pulses, No tenderness/swelling Skin: No rashes, No breakdown, No significant lesion Neuro: Normal gait, Normal speech, Strength at 5/5 X4 ext, Normal tone, Sensation intact, Cranial nerves 3-12 NL, Reflexes 2+ Psych/Mental Status: Mental status NL, Mood NL Labs/Xrays Labs Test 02/02/25 16:40 02/02/25 14:51 02/02/25 13:50 Range/Units Lactic Acid Level 2.8 *H 0.4-2.0 mmol/L Troponin I High Sensitivity 4 </=54 ng/L White Blood Count 5.6 4.4-10.8 10^3/uL Red Blood Count 3.85 L 4.5-5.90 10^6/uL Hemoglobin 14.1 13.5-17.5 g/dL Hematocrit 40.1 L 41.0-53.0 % Mean Corpuscular Volume 104.2 H 80.0-100.0 fL Mean Corpuscular Hemoglobin 36.6 H 28.0-32.0 pg Mean Corpuscular Hemoglobin Concent 35.1 32.0-36.0 g/dL Red Cell Distribution Width 14.0 11.8-14.3 % Platelet Count 99 L 140-450 10^3/uL Mean Platelet Volume 6.7 L 6.9-10.8 fL Neutrophils (%) (Auto) 67.3 37.0-80.0 % Lymphocytes (%) (Auto) 17.5 10.0-50.0 % Monocytes (%) (Auto) 13.4 H 0.0-12.0 % Eosinophils (%) (Auto) 1.3 0.0-7.0 % Basophils (%) (Auto) 0.5 0.0-2.0 % Neutrophils # (Auto) 3.7 1.6-8.6 10 ^3/uL Lymphocytes # (Auto) 1.0 0.4-5.4 10 ^3/uL Monocytes # (Auto) 0.7 0-1.3 10 ^3/uL Eosinophils # (Auto) 0.1 0-0.8 10 ^3/uL Basophils # (Auto) 0 0-0.2 10 ^3/uL Nucleated Red Blood Cells 0.0 % Prothrombin Time 13.8 H 9.3-11.8 sec Prothrombin Time INR 1.34 H 0.9-1.15 Activated Partial Thromboplast Time 30.0 24.5-34.5 SEC Sodium Level 132 L 136-145 mmol/L Potassium Level 4.3 3.5-5.1 mmol/L Chloride Level 103 98-107 mmol/L Carbon Dioxide Level 22 20-31 mmol/L Anion Gap 7 5-15 Blood Urea Nitrogen < 5 L 9-23 mg/dL Creatinine 0.73 0.700-1.30 mg/dL Glomerular Filtration Rate Calc 109 >90 mL/min BUN/Creatinine Ratio 6.8 L 10.0-20.0 Serum Glucose 128 H 74-106 mg/dL Calcium Level 8.2 L 8.7-10.4 mg/dL Magnesium Level 1.5 L 1.6-2.6 mg/dL Total Bilirubin 4.1 H 0.2-1.0 mg/dL Aspartate Amino Transferase (AST) 122 H 13-40 U/L Alanine Aminotransferase (ALT) 50 H 7-40 U/L Alkaline Phosphatase 153 H 46-116 U/L B-Type Natriuretic Peptide 10.82 0-100 pg/mL Total Protein 7.8 5.7-8.2 g/dL Albumin 2.9 L 3.2-4.8 g/dL Lipase 38 12-53 U/L Urine Color Yellow Yellow Urine Clarity Turbid H Clear Urine pH 6.0 5.0-9.0 Urine Specific [place] 1.009 1.001-1.035 Urine Protein Trace H Negative Urine Ketones Negative Negative Urine Blood 1+ H Negative /uL Urine Nitrite Negative Negative Urine Bilirubin 1+ Negative Urine Urobilinogen 12 H Negative mg/dL Urine Leukocyte Esterase Negative Negative /uL Urine RBC <1 0 - 3 /hpf Urine Microscopic WBC 3 0-3 /HPF Urine Squamous Epithelial Cells None seen <5 /hpf Urine Bacteria None seen None Seen /hpf Urine Hyaline Casts Few 0 - 2 /lpf Urine Mucus Few None Seen Urine Sperm Present None Seen /hpf Urine Glucose Normal Normal mg/dL Assessment/Plan Assessment/Plan Assessment Sepsis likely due to SBP Alcoholic liver cirrhosis Moderate ascites detected on US Abdominal Hernia Mild hyponatremia Alcoholic pattern transaminitis Cirrhotic liver with large amount of ascites in esophageal varices. Cholelithiasis. Moderate size umbilical hernia containing ascites. Thrombocytopenia Coagulopathy Melena stool Bibasilar subsegmental atelectasis. Plan Empirical coverage: Ceftriaxone Paracentesis today Blood culture Ascitic fluid culture and cytology Incentive spirometry albumin ? GI consult for probable EGD versus colonoscopy Goal of care discussed for more than 35 minutes: Full code Case and plan discussed with Dr. Huntley Plan discussed with: Patient My Orders Orders - JUSTO RETANA RESIDENT Procedure Category Date Status Time Admit ADMIT 02/02/25 Transmitted 22:28 Code Status CODE 02/02/25 Transmitted 22:28 Vital Signs JOSE 02/02/25 In Process 22:28 Review Orders With JOSE 02/02/25 In Process Adm.Md 22:28 Notify Of Changes JOSE 02/02/25 In Process From Base 22:28 Advance Directive JOSE 02/02/25 In Process 22:28 Blood Culture JUAN 02/02/25 Logged 22:28 Patient Condition ORDERS 02/02/25 Transmitted 22:28 Allergies JOSE 02/02/25 In Process 22:28 Drug Screen LAB 02/02/25 Logged 22:28 Notify Of Changes JOSE 02/02/25 In Process From Base 22:28 PTPTT LAB 02/02/25 Logged 22:28 Thyroid Stimulating LAB 02/02/25 Logged Hormone 22:28 Complete Blood Count LAB 02/03/25 Verified 04:00 Comprehensive LAB 02/03/25 Verified Metabolic Panel 04:00 Body Fluid Ph LAB 02/02/25 Logged 22:28 Body Fluid Culture W/ JUAN 02/02/25 Logged GS 22:28 Body Fluids, Diff. LAB 02/02/25 Logged Cell Count 22:28 Lactate LAB 02/02/25 Logged Dehydrogenase, Fluid 22:28 Albumin; Body Fluid LAB 02/02/25 Logged 22:28 Glucose Body Fluid LAB 02/02/25 Logged 22:28 Date of Service: Feb 02, 2025 Billing Provider: YARELIS HUNTLEY MD Common Visit Codes: [id number] INP/OBS CARE (HIGH) JUSTO RETANA RESIDENT Feb 02, 2025 22:54 YARELIS HUNTLEY MD Feb 03, 2025 14:26
[2025-02-02 23:20] LABS: INR 1.31 (0.9-1.15); Partial Thromboplastin Time 28.7 SEC (24.5-34.5); Prothrombin Time 13.5 sec (9.3-11.8)
[2025-02-02 23:30] VITALS: BP 153/95; PULSE 120; RESP 16; TEMP 98.1; O2SAT 98
[2025-02-03] MEDS: FUROSEMIDE 40 MG/4 ML VIAL IV ONE (00:28)
[2025-02-03] MEDS: SPIRONOLACTONE 25 MG TAB PO ONE (00:28)
[2025-02-03] MEDS: ALBUMIN 25% 50 ML IV ONE ×3 (00:30→10:21)
--- NOTE | 2025-02-03 06:25 | DVHNC2 ---
JUNI DEVLIN RESIDENT 02/03/25 0625: Procedure - Paracentesis Procedure Note INDICATION: Liver cirrhosis, massive ascites, paracentesis last 01/07 with 10 L of fluid extraction. PROCEDURE AWNING HANGER: Juni Devlin MD Ultrasound used to [place] location: Y CONSENT: Consent was obtained from the patient prior to the procedure. Indications, risks, and benefits were explained at length. PROCEDURE SUMMARY: A time-out was performed. My hands were washed immediately prior to the procedure. I wore a surgical cap, mask with protective eyewear, sterile gown and sterile gloves throughout the procedure. The area was cleansed and draped in usual sterile fashion using chlorhexidine scrub. Anesthesia was achieved with 1% lidocaine. The RLQ of the abdomen was prepped and draped in a sterile fashion using chlorhexidine scrub. 1% lidocaine was used to numb the skin, soft tissue and peritoneum. The paracentesis catheter was inserted and advanced with negative pressure until straw yellow colored fluid was aspirated. Approximately 60 mL of ascitic fluid was collected and sent for laboratory analysis. The catheter was then connected to the vaccutainer and 9 liters of additional ascitic fluid were drained. The catheter was removed and no leaking was noted. A bandaid was placed over the puncture wound. The patient tolerated the procedure well without any immediate complications. Estimated blood loss was less than 5 mL. The patient tolerated well, hemodynamically stable, patient was given 2 units of 12.5 g of albumin. Appreciate the RN help of Desiree. Appreciate the Support of Dr. Adorno. YARELIS FLANAGAN MD 02/03/25 1446: Date of Service: Feb 03, 2025 Billing Provider: YARELIS FLANAGAN MD Common Visit Codes: PROCEDURE ONLY Procedure Codes: [id number] W/O IMAGING JUNI DEVLIN Feb 03, 2025 06:25 YARELIS FLANAGAN MD Feb 03, 2025 14:46
[2025-02-03 07:45] VITALS: PULSE 127; RESP 16; O2SAT 99
[2025-02-03] MEDS: SODIUM CHLORIDE 0.9% 500 ML IV ONE ×2 (08:23→09:51)
[2025-02-03 08:25] LABS: Basophils # (auto) 0.1 10 ^3/uL (0-0.2); Basophils % (auto) 1.1 % (0.0-2.0); Eosinophils # (auto) 0 10 ^3/uL (0-0.8); Eosinophils % (auto) 0.4 % (0.0-7.0); Hematocrit 36.5 % (41.0-53.0); Hemoglobin 13.1 g/dL (13.5-17.5); Lymphocytes # (auto) 0.7 10 ^3/uL (0.4-5.4); Lymphocytes % (auto) 14.4 % (10.0-50.0); Mean Corpuscular Hgb Conc. 36.1 g/dL (32.0-36.0); Mean Corpuscular Volume 102.7 fL (80.0-100.0); Monocytes # (auto) 0.6 10 ^3/uL (0-1.3); Monocytes % (auto) 11.2 % (0.0-12.0); Neutrophils # (auto) 3.6 10 ^3/uL (1.6-8.6); Neutrophils % (auto) 72.9 % (37.0-80.0); Platelet Count (auto) 68 10^3/uL (140-450); Red Blood Cells 3.55 10^6/uL (4.5-5.90); Red Cell Distribution Width 14.1 % (11.8-14.3)
[2025-02-03 08:39] LABS: Alanine Aminotransferase 38 U/L (7-40); Anion Gap 14 (5-15); Carbon Dioxide 20 mmol/L (20-31); Chloride 98 mmol/L (98-107); Glucose 103 mg/dL (74-106); Total Protein 7.6 g/dL (5.7-8.2)
[2025-02-03 08:40] LABS: Phosphorus 3.5 mg/dL (2.4-5.1)
[2025-02-03 08:42] LABS: Magnesium 1.5 mg/dL (1.6-2.6); Potassium 3.5 mmol/L (3.5-5.1); Sodium 132 mmol/L (136-145)
[2025-02-03 08:43] LABS: Albumin 3.2 g/dL (3.2-4.8); Alkaline Phosphatase 135 U/L (46-116); Aspartate Aminotransferase 85 U/L (13-40); BUN/Creatinine Ratio 6.3 (10.0-20.0); Bilirubin, Total 4.8 mg/dL (0.2-1.0); Blood Urea Nitrogen < 5 mg/dL (9-23); Calcium 8.5 mg/dL (8.7-10.4)
[2025-02-03 08:55] LABS: Lactic Acid w/Reflex 3.5 mmol/L (0.4-2.0)
[2025-02-03] MEDS: MAGNESIUM SULFATE 1GM/100ML 100 ML IV ONE (08:59)
[2025-02-03] MEDS: chlordiazePOXIDE HCL 25 MG CAP PO ONE (09:43)
[2025-02-03] MEDS: SPIRONOLACTONE 25 MG TAB PO SCH (09:46)
[2025-02-03] MEDS: cefTRIAXone 1GM/50ML D5W 50 ML IV SCH (09:59)
[2025-02-03 14:30] VITALS: BP 142/70; PULSE 131; RESP 18; TEMP 98.4; O2SAT 98
[2025-02-03 14:48] VITALS: PULSE 130; RESP 18; O2SAT 96
[2025-02-03 16:39] VITALS: BP 145/83; PULSE 128; RESP 18; TEMP 98; O2SAT 100
[2025-02-03 20:00] VITALS: PULSE 123; RESP 18; O2SAT 96
[2025-02-03 21:00] VITALS: BP 128/71; PULSE 124; RESP 18; TEMP 98.5; O2SAT 97
[2025-02-03] MEDS ORDERED: LORazepam 2MG/ML-1ML VIAL IV PRN (21:00)
--- NOTE | 2025-02-03 21:12 | DVHPNRES ---
Progress Note Date Seen: Feb 03, 2025 Resident Creating Document: SHONAJERSONCIPRIANOPAVEL RESIDENT Medical Necessity Reason Pt with a Central, PICC or Fol: No Subjective Review of Systems This is a 54-year-old male with a history of liver cirrhosis status post multiple paracentesis presented to the ED tonight today with progressively distended abdomen making it difficult for him to breathe and feeling tired. Patient was actually seen here on January 07 for abdominal pain and distention where he had paracentesis. Patient's home medications include bumetanide, propranolol, pantoprazole and folic acid. Patient admits that has not been compliant with his medication and he still drinks. His last drink was actually this morning. He denies any fever, hematemesis, but admits to dark tarry stool and lower abdoinal pain. Patient is not confused at this time. In the ED initial vitals were temperature of 100, pulse of 130 respiratory of 32 and blood pressure of 161/112. His lab values were showed mildly mild hypo natremia elevated lactic acid 2.7 and magnesium was low at 1.5. Past medical history: Cirrhosis, hypertension, depression, alcoholism Past surgical history: Hernia repair Social History: Patient lives with friends. He said he was at any job whatever he can find fine his hands do he would do it. Family history is noncontributory Review of systems Patient was seen and examined at the bedside in the morning, reported significant improvement in the abdominal distention and the pain Denies shortness of breath, chest pain Patient was seen to have tachycardia and sweating, tremors on and extension, mild headache with a CIWA score 11. Patient reported last drink about 24 hours prior to assessment Objective vital signs Vital Sign Date Time Temp Pulse Resp B/P (MAP) Pulse Ox O2 Delivery O2 Flow Rate FiO2 02/03/25 16:39 98.0 128 18 145/83 (103) 100 98.0 02/03/25 14:48 Room Air* 0 21 medications Current Medications Medications Dose Ordered Sig/Adama Route Start Time Stop Time Status Last Admin Dose Admin Spironolactone 100 mg DAILY PO 02/03/25 10:00 02/03/25 09:46 100 MG Ceftriaxone Sodium 50 ml @ 100 mls/hr DAILY@09 IV 02/03/25 09:00 02/03/25 09:59 100 MLS/HR Chlordiazepoxide HCl 50 mg Q8HR PRN PO 02/03/25 22:00 02/04/25 11:00 Examination Constitutional: Patient was alert and oriented X 3 and does not appear to be in acute distress Gen - no pallor, mild scleral icterus, no cyanosis, no clubbing, no LAD, 1+ bilateral lower extremity edema Skin - Patients skin is warm and dry. HEENT - normocephalic, atraumatic, dry mucous membranes. Neck - full ROM, no LAD Pulmonary - B/L equal breath sounds, no crackles , no wheezing, no stridor. cardiovascular - variable S1,S2 heard, no added sounds, no murmurs heard. GI - soft abdomen with distention and flank fullness. No tenderness, guarding or rebound tenderness. no hepatospleenomegaly. Bowel sounds normoactive Neurological - Bilateral upper extremity strength 5/5, bilateral lower extremity strength 5/5, no facial droop, normal speech, no tremor, no sensory deficiets. 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 Redemonstration of cirrhotic liver with large amount of ascites in esophageal varices. 2. Cholelithiasis. 3. Moderate size umbilical hernia containing ascites. Plan - 9 L of ascitic fluid removed and sent to lab for differential cell count, culture, albumin, LDH which are pending - patient given IV fluids and 37.5 g of albumin - Librium and Ativan for alcohol withdrawal - empiric antibiotics ceftriaxone - spironolactone 100 mg daily - Lasix - patient on telemetry Goals of care discussed with the patient for over 20 mins. Full code Plan discussed with Dr. Escudero Plan discussed with: Patient My Orders My Orders Orders - LESLY STEWARD RESIDENT Procedure Category Date Status Time 2 Gm Sodium Diet DIET 02/03/25 Transmitted Breakfast Chlordiazepoxide Hcl PHA 02/03/25 In Process Capsule (Librium Ca 22:00 Date of Service: Feb 03, 2025 Billing Provider: MIKE ESCUDERO MD Common Visit Codes: [id number] INP/OBS CARE(HIGH) LESLY STEWARD RESIDENT Feb 03, 2025 21:12 MIKE ESCUDERO MD Feb 15, 2025 21:50
[2025-02-03 21:14] LABS: Body Fluid Red Blood Cells 228 CUMM (0-2000); Body Fluid White Blood Cells 114 CUMM (0-200)
[2025-02-03] MEDS ORDERED: chlordiazePOXIDE HCL 25 MG CAP PO PRN (22:00)
[2025-02-03] MEDS: LORazepam 2MG/ML-1ML VIAL IV ONE (22:20)
[2025-02-03] MEDS: PANTOPRAZOLE 40 MG TAB PO ONE (22:20)
[2025-02-04] VITALS (8 sets, daily range): BP systolic 120–142; BP diastolic 71–92; PULSE 105–119; RESP 16–19; TEMP 97.9–98.5; O2SAT 96–99
[2025-02-04 04:54] LABS: Basophils # (auto) 0 10 ^3/uL (0-0.2); Eosinophils # (auto) 0.2 10 ^3/uL (0-0.8); Monocytes # (auto) 0.5 10 ^3/uL (0-1.3); Nucleated Red Blood Cells % 0.2 %
[2025-02-04 04:56] LABS: White Blood Cell 3.3 10^3/uL (4.4-10.8)
[2025-02-04 05:14] LABS: Alanine Aminotransferase 31 U/L (7-40); Alkaline Phosphatase 111 U/L (46-116); Anion Gap 8 (5-15); BUN/Creatinine Ratio 9.7 (10.0-20.0); Carbon Dioxide 23 mmol/L (20-31); Chloride 103 mmol/L (98-107); Glucose 102 mg/dL (74-106); Total Protein 6.3 g/dL (5.7-8.2)
[2025-02-04 05:15] LABS: Albumin 2.5 g/dL (3.2-4.8); Aspartate Aminotransferase 73 U/L (13-40); Bilirubin, Total 4.9 mg/dL (0.2-1.0); Blood Urea Nitrogen 7 mg/dL (9-23); Magnesium 1.6 mg/dL (1.6-2.6); Potassium 3.3 mmol/L (3.5-5.1); Sodium 134 mmol/L (136-145)
[2025-02-04 05:32] LABS: Basophils % (auto) 0.4 % (0.0-2.0); Eosinophils % (auto) 7.3 % (0.0-7.0); Hematocrit 32.9 % (41.0-53.0); Hemoglobin 11.9 g/dL (13.5-17.5); Lymphocytes # (auto) 0.7 10 ^3/uL (0.4-5.4); Lymphocytes % (auto) 22.4 % (10.0-50.0); Mean Corpuscular Hemoglobin 37.4 pg (28.0-32.0); Mean Corpuscular Hgb Conc. 36.1 g/dL (32.0-36.0); Mean Corpuscular Volume 103.5 fL (80.0-100.0); Monocytes % (auto) 15.9 % (0.0-12.0); Neutrophils # (auto) 1.8 10 ^3/uL (1.6-8.6); Platelet Count (auto) 48 10^3/uL (140-450); Red Blood Cells 3.18 10^6/uL (4.5-5.90); Red Cell Distribution Width 13.8 % (11.8-14.3)
[2025-02-04 06:40] LABS: Macrocytosis Slight; Platelet Estimate Decreased
[2025-02-04] MEDS: PANTOPRAZOLE 40 MG/10 ML VIAL INJ IV SCH (10:19)
[2025-02-04] MEDS: POTASSIUM CHL 20 Meq TABLET PO ONE (10:20)
[2025-02-04] MEDS: SODIUM CHLORIDE 0.9% 500 ML IV ONE ×2 (12:15→20:15)
[2025-02-04] MEDS: chlordiazePOXIDE HCL 25 MG CAP PO ONE ×2 (12:16→22:15)
--- NOTE | 2025-02-04 22:27 | DVHPNRES ---
Progress Note Date Seen: Feb 04, 2025 Resident Creating Document: LESLY STEWARD RESIDENT Medical Necessity Reason Pt with a Central, PICC or Fol: No Subjective Review of Systems Patient was seen and examined at the bedside Denies abdominal pain, shortness of breath, chest pain Objective vital signs Vital Sign Date Time Temp Pulse Resp B/P (MAP) Pulse Ox O2 Delivery O2 Flow Rate FiO2 02/04/25 20:53 97.9 107 16 120/76 (91) 96 97.9 02/04/25 19:32 Room Air* 0 21 Total Intake and Output 02/03/25 02/03/25 02/04/25 15:00 23:00 07:00 Intake Total 1200 ml 660 ml 730 ml Output Total 450 ml Balance 1200 ml 660 ml 280 ml medications Current Medications Medications Dose Ordered Sig/Adama Route Start Time Stop Time Status Last Admin Dose Admin Spironolactone 100 mg DAILY PO 02/03/25 10:00 02/04/25 10:18 100 MG Ceftriaxone Sodium 50 ml @ 100 mls/hr DAILY@09 IV 02/03/25 09:00 02/04/25 10:20 100 MLS/HR Lorazepam 1 mg Q12HP PRN IV 02/03/25 21:00 Pantoprazole Sodium 40 mg DAILY IV 02/04/25 10:00 02/04/25 10:19 40 MG Examination Constitutional: Patient was alert and oriented X 3 and does not appear to be in acute distress Gen - no pallor, mild scleral icterus, no cyanosis, no clubbing, no LAD, 1+ bilateral lower extremity edema Skin - Patients skin is warm and dry. HEENT - normocephalic, atraumatic, dry mucous membranes. Neck - full ROM, no LAD Pulmonary - B/L equal breath sounds, no crackles , no wheezing, no stridor. cardiovascular - variable S1,S2 heard, no added sounds, no murmurs heard. GI - soft abdomen with mild distention and flank fullness. No tenderness, guarding or rebound tenderness. no hepatospleenomegaly. Bowel sounds normoactive Neurological - Bilateral upper extremity strength 5/5, bilateral lower extremity strength 5/5, no facial droop, normal speech, no tremor, no sensory deficiets. laboratory and microbiology Laboratory Tests 02/04/25 04:25 Test 02/04/25 04:25 Range/Units Serum Glucose 102 74-106 mg/dL Microbiology Date/Time Source Procedure Growth Status 02/03/25 05:00 Ascities Fluid Gram Stain - Final Resulted 02/03/25 05:00 Ascities Fluid Body Fluid Culture - Preliminary Resulted 02/02/25 22:46 Blood Blood Culture - Preliminary NO GROWTH AFTER 24 HOURS OF INCUBATION. Resulted Problem List/Assessment/Plan Problem List/Assessment/Plan Assessment Sepsis with possible SBP Lactic acidosis Ascites likely due to alcoholic liver cirrhosis Alcoholic liver cirrhosis with MELD Na-20, Child Moon class C Hyperbilirubinemia Umbilical hernia Alcohol withdrawal syndrome CT abdomen pelvis without contrast IMPRESSION: 1. Redemonstration of cirrhotic liver with large amount of ascites in esophageal varices. 2. Cholelithiasis. 3. Moderate size umbilical hernia containing ascites. Plan - 9 L of ascitic fluid removed and sent to lab for differential cell count, culture, albumin, LDH which are pending - patient given IV fluids and 37.5 g of albumin - Librium for alcohol withdrawal - empiric antibiotics ceftriaxone - spironolactone 100 mg daily - Lasix - patient on telemetry Goals of care discussed with the patient for over 20 mins. Full code Plan discussed with Dr. Escudero Plan discussed with: Patient My Orders My Orders Orders - LESLY STEWARD Procedure Category Date Status Time Sodium Chloride 0.9% PHA 02/04/25 In Process 20:15 Date of Service: Feb 04, 2025 Billing Provider: MIKE ESCUDERO MD Common Visit Codes: [id number] INP/OBS CARE(HIGH) LESLY STEWARD RESIDENT Feb 04, 2025 22:27 MIKE ESCUDERO MD Feb 16, 2025 19:44
[2025-02-05 00:44] VITALS: BP 123/78; PULSE 109; RESP 14; TEMP 98; O2SAT 97
[2025-02-05 04:48] VITALS: BP 129/77; PULSE 108; RESP 15; TEMP 97.9; O2SAT 99
[2025-02-05 06:47] LABS: Basophils # (auto) 0.1 10 ^3/uL (0-0.2); Basophils % (auto) 1.2 % (0.0-2.0); Eosinophils # (auto) 0.2 10 ^3/uL (0-0.8); Eosinophils % (auto) 5.7 % (0.0-7.0); Hematocrit 33.5 % (41.0-53.0); Hemoglobin 12.1 g/dL (13.5-17.5); Lymphocytes # (auto) 0.8 10 ^3/uL (0.4-5.4); Lymphocytes % (auto) 19.5 % (10.0-50.0); Mean Corpuscular Hemoglobin 37.6 pg (28.0-32.0); Mean Corpuscular Hgb Conc. 36.1 g/dL (32.0-36.0); Monocytes # (auto) 0.7 10 ^3/uL (0-1.3); Monocytes % (auto) 15.9 % (0.0-12.0); Neutrophils # (auto) 2.4 10 ^3/uL (1.6-8.6); Neutrophils % (auto) 57.7 % (37.0-80.0); Nucleated Red Blood Cells % 0.1 %; Platelet Count (auto) 57 10^3/uL (140-450); Red Blood Cells 3.22 10^6/uL (4.5-5.90); Red Cell Distribution Width 13.8 % (11.8-14.3); White Blood Cell 4.2 10^3/uL (4.4-10.8)
[2025-02-05 06:58] LABS: Alanine Aminotransferase 29 U/L (7-40); Alkaline Phosphatase 102 U/L (46-116); Anion Gap 8 (5-15); BUN/Creatinine Ratio 12.7 (10.0-20.0); Blood Urea Nitrogen 9 mg/dL (9-23); Carbon Dioxide 22 mmol/L (20-31); Chloride 103 mmol/L (98-107); Glucose 92 mg/dL (74-106); Total Protein 5.8 g/dL (5.7-8.2)
[2025-02-05 07:02] LABS: Albumin 2.4 g/dL (3.2-4.8); Aspartate Aminotransferase 64 U/L (13-40); Potassium 3.5 mmol/L (3.5-5.1); Sodium 133 mmol/L (136-145)
[2025-02-05 07:28] VITALS: BP 124/84; PULSE 55; RESP 20; TEMP 97.8; O2SAT 94
[2025-02-05 08:00] VITALS: PULSE 101; RESP 19; O2SAT 94
[2025-02-05] MEDS ORDERED: chlordiazePOXIDE HCL 25 MG CAP PO SCH (10:00)
[2025-02-05 13:07] LABS: Protein, Body Fluid 2.5 g/dL (.)
--- NOTE | 2025-02-05 14:41 | DVHDS2 ---
Discharge Summary Date of Admission Feb 02, 2025 at 22:28 Date of Discharge: Feb 05, 2025 Labs/Diagnostic Data: Laboratory Results Test 02/05/25 05:40 02/04/25 04:25 02/03/25 18:19 02/03/25 08:00 White Blood Count 4.2 10^3/uL (4.4-10.8) Red Blood Count 3.22 10^6/uL (4.5-5.90) Hemoglobin 12.1 g/dL (13.5-17.5) Hematocrit 33.5 % (41.0-53.0) Mean Corpuscular Volume 104.0 fL (80.0-100.0) Mean Corpuscular Hemoglobin 37.6 pg (28.0-32.0) Mean Corpuscular Hemoglobin Concent 36.1 g/dL (32.0-36.0) Red Cell Distribution Width 13.8 % (11.8-14.3) Platelet Count 57 10^3/uL (140-450) Mean Platelet Volume 7.9 fL (6.9-10.8) Neutrophils (%) (Auto) 57.7 % (37.0-80.0) Lymphocytes (%) (Auto) 19.5 % (10.0-50.0) Monocytes (%) (Auto) 15.9 % (0.0-12.0) Eosinophils (%) (Auto) 5.7 % (0.0-7.0) Basophils (%) (Auto) 1.2 % (0.0-2.0) Neutrophils # (Auto) 2.4 10 ^3/uL (1.6-8.6) Lymphocytes # (Auto) 0.8 10 ^3/uL (0.4-5.4) Monocytes # (Auto) 0.7 10 ^3/uL (0-1.3) Eosinophils # (Auto) 0.2 10 ^3/uL (0-0.8) Basophils # (Auto) 0.1 10 ^3/uL (0-0.2) Nucleated Red Blood Cells 0.1 % Sodium Level 133 mmol/L (136-145) Potassium Level 3.5 mmol/L (3.5-5.1) Chloride Level 103 mmol/L (98-107) Carbon Dioxide Level 22 mmol/L (20-31) Anion Gap 8 (5-15) Blood Urea Nitrogen 9 mg/dL (9-23) Creatinine 0.71 mg/dL (0.700-1.30) Glomerular Filtration Rate Calc 110 mL/min (>90) BUN/Creatinine Ratio 12.7 (10.0-20.0) Serum Glucose 92 mg/dL (74-106) Calcium Level 8.0 mg/dL (8.7-10.4) Total Bilirubin 4.0 mg/dL (0.2-1.0) Aspartate Amino Transferase (AST) 64 U/L (13-40) Alanine Aminotransferase (ALT) 29 U/L (7-40) Alkaline Phosphatase 102 U/L (46-116) Total Protein 5.8 g/dL (5.7-8.2) Albumin 2.4 g/dL (3.2-4.8) Platelet Estimate Decreased Macrocytosis Slight Magnesium Level 1.6 mg/dL (1.6-2.6) Lactic Acid Level 1.4 mmol/L (0.4-2.0) Phosphorus Level 3.5 mg/dL (2.4-5.1) Test 02/03/25 05:00 02/02/25 22:46 02/02/25 16:40 02/02/25 14:51 Body Fluid Source Ascities fluid Body Fluid pH 8.0 Body Fluid WBC (Manual) 114 CUMM (0-200) Body Fluid RBC (Manual) 228 CUMM (0-2000) Body Fluid Mononuclear Cells 94 % Body Fluid Polymorphonuclear Cells 6 % (0-25) Body Fluid Glucose 130 mg/dL (.) Body Fluid Total Protein 2.5 g/dL (.) Body Fluid Albumin 1.0 g/dL (Not Estab.) Body Fluid Lactate Dehydrogenase 56 IU/L (.) Body Fluid Amylase 20 U/L (.) Prothrombin Time 13.5 sec (9.3-11.8) Prothrombin Time INR 1.31 (0.9-1.15) Activated Partial Thromboplast Time 28.7 SEC (24.5-34.5) Thyroid Stimulating Hormone (TSH) 3.95 uIU/mL (0.55-4.78) Troponin I High Sensitivity 4 ng/L (</=54) B-Type Natriuretic Peptide 10.82 pg/mL (0-100) Lipase 38 U/L (12-53) Test 02/02/25 13:50 Urine Color Yellow (Yellow) Urine Clarity Turbid (Clear) Urine pH 6.0 (5.0-9.0) Urine Specific [place] 1.009 (1.001-1.035) Urine Protein Trace (Negative) Urine Ketones Negative (Negative) Urine Blood 1+ /uL (Negative) Urine Nitrite Negative (Negative) Urine Bilirubin 1+ (Negative) Urine Urobilinogen 12 mg/dL (Negative) Urine Leukocyte Esterase Negative /uL (Negative) Urine RBC <1 /hpf (0 - 3) Urine Microscopic WBC 3 /HPF (0-3) Urine Squamous Epithelial Cells None seen /hpf (<5) Urine Bacteria None seen /hpf (None Seen) Urine Hyaline Casts Few /lpf (0 - 2) Urine Mucus Few (None Seen) Urine Sperm Present /hpf (None Seen) Urine Glucose Normal mg/dL (Normal) Other Laboratory Tests 02/05/25 05:40 Brief Hx & Hospital Course: 54 M with cirrhosis, alcohol use, ascites admitted for concern of SBP. Patient received para inpatient, removed 9L, received albumin and ABX. SBP ruled out by lab, however pt has lactic acidosis and alchol withdrawal. patient was not taking lasix and aldactone at home. patient left AMA today. Condition at Discharge: Good Final Diagnosis/Problems List Alcoholic cirrhosis alcohol withdrawal alcohol use lactic acidosis cannot r/o sepsis SBP ruled out Discharge Disposition: AMA 31 Discharge Statement: "Patient was advised to return to the ER or call 911 if any headaches, dizziness, shortness of breath, chest pain, abdominal pain, bleeding, fevers, or worsening of medical condition. Patient was counseled about treatment plan, medications, possible side effects, patientverbalized understanding. All questions were answered to the best of my ability. This discharge took greater then 30 minutes in planning, reviewing documentation, counseling the patient, and discussing with other team members." ASSESSMENT ASSESSMENT Assessment Date of Service: Feb 05, 2025 Billing Provider: MIKE ESCUDERO MD Common Visit Codes: [id number]/OBS DISCH DAY >30min MIKE ESCUDERO MD Feb 05, 2025 14:41
--- NOTE | 2025-02-06 14:34 | DVHSR ---
APPROVED REPORT EXAM: Two-dimensional and M-mode echocardiogram with Doppler and color Doppler. Blood Pressure: 140/92 mmHg INDICATION Sinus tachycardia? structural heart disease RISK FACTORS Height: 65, Weight: 194 DIMENSIONS LVDd4.4 (3.8-5.7cm)LA (2D)4.1 (1.9-4.0cm)Aortic Root3.5 (2.0-3.7cm) LVDs2.9 (2.5-4.0cm)LA (MM) (1.9-4.0cm)Aortic Cusp Exc1.8 (1.5-2.0cm) EF (%) 63.0 (55-70%)Rt. Atrium (1.9-4.0cm)Asc. Aorta cm IVSd1.1 (0.7-1.1cm)RV (D) (1.8-2.4cm) PWd1.2 (0.7-1.1cm) Mitral Valve MitralMitral Stenosis E wave0.93m/sMV Mean GR.mmHg A wave1.15m/sMV Peak GR.mmHg E/A ratio0.82D MVAcm2 DECEL [id number] 1/2 [id number] IVRTmsDop MVA5.88cm2 Aortic Valve Aortic ValveAortic Stenosis V11.47m/Fernandez Mean GR.8mmHg V21.93m/Fernandez Peak GR.15mmHg LVOT Diameter1.9 (1.8-2.4cm)Doppler AVA2.16cm2 Pulmonic Valve V21.57m/s Tricuspid Valve TR Velocity2.46m/s [id number] Other Information Technically limited study due to patient position and body habitus. Conclusion Sinus rhythm. Concentric LVH with left atrial enlargement. Valves appear to be structurally normal. EF of 65% with normal RV function. Dopplers unremarkable. Mild TR. No pericardial effusion masses or vegetations.
== END 2025-02-05 09:10 | disposition left against medical advice (07) | DRG 720 ==
LOC: ER 13:36 → OVERFLOW 22:28 → CENTRAL 02-03 14:28 → TELE-CENTR 02-03 14:48
PROVIDERS: ADMIT Student in an Organized Health Care Education/Training Program; ATTEND Student in an Organized Health Care Education/Training Program
PROC: 0W9G3ZZ Drainage of Peritoneal Cavity, Percutaneous Approach (ICD-10-PCS; principal; 2025-02-03)
DX: A41.9 Sepsis, unspecified organism (principal); E87.20 Acidosis, unspecified; D69.6 Thrombocytopenia, unspecified; D68.9 Coagulation defect, unspecified; E87.1 Hypo-osmolality and hyponatremia; K70.31 Alcoholic cirrhosis of liver with ascites; Z53.29 Procedure and treatment not carried out because of patient's decision for other reasons; I10 Essential (primary) hypertension; K42.9 Umbilical hernia without obstruction or gangrene; K80.20 Calculus of gallbladder without cholecystitis without obstruction; J98.11 Atelectasis; E80.6 Other disorders of bilirubin metabolism; F10.939 Alcohol use, unspecified with withdrawal, unspecified; Z68.32 Body mass index [BMI] 32.0-32.9, adult; Z79.1 Long term (current) use of non-steroidal anti-inflammatories (NSAID); Z79.899 Other long term (current) drug therapy; Y90.9 Presence of alcohol in blood, level not specified
CPT/HCPCS: 36415; 49083; 71045; 74176; 76705; 80053; 81001; 82150; 83605; 83690; 83735; 83880; 83986; 84100; 84443; 84484; 85025; 85610; 85730; 87040; 87205; 89051; 93005; 93306; 96365; 96375; 99291; G0378; J2470

== ENCOUNTER 2025-02-18 05:38 | Inpatient (IN) | payer MEDICAID ==
[~2025-02-18] VITALS: Ht 165.1 cm; Wt 83.3 kg
[~2025-02-18 05:38] MED LIST changes: -BACDST PO; -FURO1TAB31 PO; -LACT10SO59 PO; -NAPR-746 PO; -OMEP1CAP70 PO; -SPIR100T PO; -SPIR100T4 PO; -SPIR25TA PO
--- NOTE | 2025-02-18 06:43 | ED.PDOC ---
GI ASSESSMENT HPI Comments 54 y/o M, with PMHx of liver cirrhosis, ascites, HTN, and kidney stones presents to the ED for CC of abdominal pain. Patient states, that he has been experiencing abdominal pain with abdominal distension since, being discharged from [facility] on 02/05/25. Patient drinks heavily, and receives routine paracentesis to remove excess abdominal fluid; last paracentesis was performed on 02/03/25 where 9L of ascitic fluid was drained. Patient endorses, still drinking. Upon arrival to the ED patient is tachycardiac and hypertensive. Patient denies any nausea, vomiting, or diarrhea. No other symptoms or modifying factors present at this time. Chief Complaint: Abdominal Pain Time Seen by MD: 06:30 Primary Care Provider: none Reviewed Notes: Nurses Notes, Medications, Allergies Allergies: Coded Allergies: NO KNOWN ALLERGIES (Unverified , 03/12/20) Home Meds Active Scripts Magnesium Oxide (MAGNESIUM OXIDE) 400 Mg Tab, 400 MG OR DAILY for 30 Days, #30 TAB Prov:PORSCHE CROWE RESIDENT 07/31/24 Potassium Chloride (Potassium Chloride ER) 20 Meq Tab, 20 MEQ PO DAILY for 30 Days, #30 TAB Prov:PORSCHE CROWE RESIDENT 07/31/24 Multiple Vitamin (Multivitamins) Tab, 1 TAB PO DAILY for 90 Days, #90 TAB 0 Refills Prov:ANUJ MULLIGAN HAZARDOUS MATERIAL TECHNICIAN 04/06/24 Sucralfate (CARAFATE) 1 Gm Tab, 1 GM OR QID for 30 Days, #120 TAB Prov:ANUJ MULLIGAN HAZARDOUS MATERIAL TECHNICIAN 04/06/24 Lisinopril (Lisinopril) 20 Mg Tab, 1 TAB PO DAILYPRN for 60 Days, #60 TAB Prov:ANUJ MULLIGAN HAZARDOUS MATERIAL TECHNICIAN 04/06/24 Propranolol HCl (Propranolol Hydrochloride) 20 Mg Tab, 1 TAB PO BID for 60 Days, #120 TAB Prov:ANUJ MULLIGAN HAZARDOUS MATERIAL TECHNICIAN 04/06/24 Reported Medications Furosemide (Furosemide) 40 Mg Tab, 1 TAB PO DAILY for 14 Days, #14 02/03/25 Cholecalciferol (VITAMIN D3) 2,000 Unit Tab, 1 TAB PO DAILY for 90 Days, #90 02/03/25 Spironolactone (Spironolactone) 25 Mg Tab, 1 TAB PO DAILY for 30 Days, #30 02/03/25 Pantoprazole Sodium Sesquihydr (Protonix) 40 Mg Tab, 1 TAB PO BID for 30 Days, #60 02/02/25 Bumetanide (Bumetanide) 1 Mg Tab, 1 TAB PO DAILY for 30 Days, #30 02/02/25 Lactulose (Lactulose) 10 Gm/15 Ml Sharon, ML PO 11/25/24 Acamprosate Calcium (ACAMPROSATE CALCIUM DR) 333 Mg Tab, 333 MG PO QID, TAB 07/31/24 Folic Acid (Folic Acid) 1 Mg Tab, 1 MG PO DAILY, TAB 07/31/24 Thiamine Hcl (VITAMIN B-1) 100 Mg Tb, 1 TAB PO DAILY for 30 Days, #30 07/31/24 Information Source: Patient Mode of Arrival: Ambulatory Timing: Days Duration: Since onset Prehospital treatment: None Quality: None Vomitus: None Stool: Normal Severity: Moderate Recent Hx of: None Pain Location: Diffuse Modifying Factors: Nothing Associated sign and symptoms: None Past Medical History PAST MEDICAL HISTORY: Anxiety, Depression, HTN, Kidney Stones, Liver Surgical History: Hernia Repair Family History Family History: Reviewed,noncontributory to illness, Family hx of Cancer Social History Smoker: Non-Smoker Alcohol: Heavy Drugs: Denies Drug Use Lives In: Home Constitutional: denies: chills, diaphoresis, fatigue, fever, malaise, sweats, weakness, others EENTM: denies: blurred vision, double vision, ear bleeding, ear discharge, ear drainage, ear pain, ear ringing, eye pain, eye redness, hearing loss, mouth pain, mouth swelling, nasal discharge, nose bleeding, nose congestion, nose pain, photophobia, tearing, throat pain, throat swelling, voice changes, others Respiratory: denies: cough, hemoptysis, orthopnea, SOB at rest, shortness of breath, SOB with excertion, stridor, wheezing, others Gastrointestinal: reports: abdomen distended, abdominal pain; denies: blood streaked bowels, constipated, diarrhea, dysphagia, difficulty swallowing, hematemesis, melena, nausea, poor appetite, poor fluid intake, rectal bleeding, rectal pain, vomiting, others Genitourinary: denies: burning, dysuria, flank pain, frequency, hematuria, incontinence, penile discharge, penile sore, pain, testicle pain, testicle swelling, urgency, others Neurological: denies: dizziness, fainting, headache, left sided numbness, left sided weakness, numbness, paresthesia, pre-existing deficit, right sided numbn ess, right sided weakness, seizure, speech problems, tingling, tremors, weakness, others Musculoskeletal: denies: back pain, gout, joint pain, joint swelling, muscle pain, muscle stiffness, neck pain, others Integumetry: denies: bruises, change in color, change in hair/nails, dryness, laceration, lesions, lumps, rash, wounds, others Allergic/Immunocompromised: denies: Difficulty Healing, Frequent Infections, Hives, Itching, others Hematologic/Lymphatic: denies: anemia, blood clots, easy bleeding, easy bruising, swollen glands, others Endocrine: denies: excessive hunger, excessive sweating, excessive thirst, excessive urination, flushing, intolerance to cold, intolerance to heat, unexplained weight gain, unexplained weight loss, others Psychiatric: denies: anxiety, bipolar disorder, depression, hopeless, panic disorder, schizophrenia, sleepless, suicidal, others All Other Systems: Reviewed and Negative Physical Exam General Appearance: Moderate Distress HEENT: Normal ENT Inspection, Pharynx Normal, TMs Normal Neck: Full Range of Motion, Non-Tender, Normal, Normal Inspection Respiratory: Chest Non-Tender, Lungs Clear, No Accessory Muscle Use, No Respiratory Distress, Normal Breath Sounds Cardiovascular: No Edema, No JVD, No Murmur, No Gallop, Normal Peripheral Pulses, Regular Rate/Rhythm Breast Exam: Deferred Gastrointestinal: Distended Genitalia: Deferred Pelvic: Deferred Rectal: Deferred Extremities: No calf tenderness Musculoskeletal : Apperance: Normal Neurologic: Alert Cerebellar Function: Normal Reflexes: Normal Skin: Jaundice, Pallor Peripheral Pulses: 3+ Radial (R), 3+ Radial (L) Lymphatic: No Adenopathy Was a procedure done? Was a procedure done?: No GI differential Dx Differential Diagnosis: Constipation, Diverticular disease, Esophagitis, Gastritis/PUD, Gastroenteritis X-Ray, Labs, Meds, VS Vital Signs Date Time Temp Pulse Resp B/P (MAP) Pulse Ox O2 Delivery O2 Flow Rate FiO2 02/18/25 06:11 98.1 120 25 160/106 (124) 96 98.1 02/18/25 05:48 99.1 125 20 162/108 (126) 98 99.1 Lab Test 02/18/25 06:18 Range/Units White Blood Count 4.4 4.4-10.8 10^3/uL Red Blood Count 3.78 L 4.5-5.90 10^6/uL Hemoglobin 13.9 13.5-17.5 g/dL Hematocrit 39.7 L 41.0-53.0 % Mean Corpuscular Volume 105.0 H 80.0-100.0 fL Mean Corpuscular Hemoglobin 36.7 H 28.0-32.0 pg Mean Corpuscular Hemoglobin Concent 35.0 32.0-36.0 g/dL Red Cell Distribution Width 13.7 11.8-14.3 % Platelet Count 135 L 140-450 10^3/uL Mean Platelet Volume 6.9 6.9-10.8 fL Neutrophils (%) (Auto) 62.8 37.0-80.0 % Lymphocytes (%) (Auto) 20.9 10.0-50.0 % Monocytes (%) (Auto) 11.9 0.0-12.0 % Eosinophils (%) (Auto) 3.4 0.0-7.0 % Basophils (%) (Auto) 1.0 0.0-2.0 % Neutrophils # (Auto) 2.8 1.6-8.6 10 ^3/uL Lymphocytes # (Auto) 0.9 0.4-5.4 10 ^3/uL Monocytes # (Auto) 0.5 0-1.3 10 ^3/uL Eosinophils # (Auto) 0.1 0-0.8 10 ^3/uL Basophils # (Auto) 0 0-0.2 10 ^3/uL Nucleated Red Blood Cells 0.1 % Prothrombin Time 12.8 H 9.3-11.8 sec Prothrombin Time INR 1.23 H 0.9-1.15 Sodium Level 130 L 136-145 mmol/L Potassium Level 3.9 3.5-5.1 mmol/L Chloride Level 101 98-107 mmol/L Carbon Dioxide Level 21 20-31 mmol/L Anion Gap 8 5-15 Blood Urea Nitrogen < 5 L 9-23 mg/dL Creatinine 0.68 L 0.700-1.30 mg/dL Glomerular Filtration Rate Calc 111 >90 mL/min BUN/Creatinine Ratio 7.4 L 10.0-20.0 Serum Glucose 108 H 74-106 mg/dL Lactic Acid Level 1.9 0.4-2.0 mmol/L Calcium Level 8.3 L 8.7-10.4 mg/dL Magnesium Level 1.6 1.6-2.6 mg/dL Total Bilirubin 3.8 H 0.2-1.0 mg/dL Aspartate Amino Transferase (AST) 97 H 13-40 U/L Alanine Aminotransferase (ALT) 37 7-40 U/L Alkaline Phosphatase 126 H 46-116 U/L Total Protein 7.4 5.7-8.2 g/dL Albumin 2.8 L 3.2-4.8 g/dL Lipase 43 12-53 U/L Plasma/Serum Blood Alcohol 103.1 H <10 mg/dL Hepatitis A IgM Antibody Pending Hepatitis B Surface Antigen Pending Hepatitis B Core IgM Antibody Pending Hepatitis C Antibody Pending Current Medications Medications (Trade) Dose Ordered Sig/Adama Route Start Time Stop Time Status Last Admin Labetalol HCl (Labetalol HCl) 10 mg ONCE ONCE IV 02/18/25 07:00 02/18/25 07:01 DC 02/18/25 07:22 [place] [id number] Ph: [phone] DIAGNOSTIC IMAGING Diagnostic Imaging Report : [id number] Signed PATIENT: JIAN ROSA ACCT: [id number] UNIT: [id number] : 1970 LOC: OVERFLOW ROOM / BED: [address] [place] [address] AGE / SEX: 54 / M ADM STATUS: ADM IN SERVICE 0658 ORDERING PHYSICIAN: JUN BRYANT MD PROCEDURE(s): PARAC - PARACENTESIS REASON: ASCITES ORDER NUMBER(s): [id number], ACCESSION NUMBER(s): [id number] US PARACENTESIS, HISTORY: ASCITES PROCEDURE: Informed consent was obtained. The patient was placed in supine position. A limited localization ultrasound of the abdomen was obtained, and the skin site over the largest pocket of fluid was marked and entry site was prepped with chlorhexidine which was allowed to dry and draped in the usual sterile fashion. Time out was performed. Following administration of 1% lidocaine local anesthetic, a 5 Faroese centesis needle catheter was percutaneously inserted into the peritoneal collection until fluid was aspirated. The catheter was advanced into the fluid collection and the needle removed. About [id number] cc of fluid was aspirated . The catheter was then removed and a sterile dressing applied. gm of albumin colloid infusion was given IV. No immediate complication was identified. FINDINGS: Limited ultrasound imaging demonstrates large ascites. Aspirated fluid was clear and serous. IMPRESSION: US-guided paracentesis with 11.3L removed. ATED BY: LANDRY ROSARIO MD DICTATED DATE/TIME: 02/18/25926 SIGNED BY: LANDRY ROSARIO MD SIGNED DATE/TIME: 02/18/25926 CC: Patient alert. Came in because of distended abdomen. He continues to drink alcohol. Blood pressure elevated. Counseled patient on effects of drinking for 15 minutes. Was given labetalol. He will require paracentesis. Intervention radiology consultation. Reviewed his previous visit. Explained to the patient. Continue monitoring. Time of 1ST Reevaluation: 07:00 Reevaluation 1ST: Unchanged Patient Education/Counseling: Diagnosis, Treatment Family Education/Counseling: No Family Present Departure 1 Departure Time of Disposition: 06:57 Impression: Primary Impression: Hepatic cirrhosis Qualified Codes: K70.31 - Alcoholic cirrhosis of liver with ascites Additional Impressions: Hypertensive urgency Abdominal distention Disposition: ADMITTED INPATIENT Admit to: Med Surg Condition: Guarded Critical Care Note Critical Care Time?: Yes (45 min-critical care time only) Critical care comment: Abdominal distention alcoholic cirrhosis continue monitoring Stability Stability form required: No Heart Score Heart Score: Heart Score Response (Comments) Value History N/A 0 EKG N/A 0 Age N/A 0 Risk Factors N/A 0 Troponin N/A 0 Total 0 I personally scribed for JUN BRYANT MD ([email or web address]) on 02/18/25 at 06:43. Electronically submitted by Cara Nuñez ([email or web address]). I personally scribed for JUN BRYANT MD ([email or web address]) on 02/18/25 at 10:28. Electronically submitted by Cara Nuñez [email or web address]). JUN BRYANT MD Feb 18, 2025 06:43
[2025-02-18 07:05] LABS: Alanine Aminotransferase 37 U/L (7-40); Anion Gap 8 (5-15); Carbon Dioxide 21 mmol/L (20-31); Chloride 101 mmol/L (98-107); Lipase 43 U/L (12-53); Potassium 3.9 mmol/L (3.5-5.1); Total Protein 7.4 g/dL (5.7-8.2)
[2025-02-18 07:10] LABS: Albumin 2.8 g/dL (3.2-4.8); Alkaline Phosphatase 126 U/L (46-116); Aspartate Aminotransferase 97 U/L (13-40); BUN/Creatinine Ratio 7.4 (10.0-20.0); Bilirubin, Total 3.8 mg/dL (0.2-1.0); Blood Urea Nitrogen < 5 mg/dL (9-23); Calcium 8.3 mg/dL (8.7-10.4); Glucose 108 mg/dL (74-106); Sodium 130 mmol/L (136-145)
[2025-02-18 07:11] LABS: Basophils # (auto) 0 10 ^3/uL (0-0.2); Eosinophils # (auto) 0.1 10 ^3/uL (0-0.8); Eosinophils % (auto) 3.4 % (0.0-7.0); Hematocrit 39.7 % (41.0-53.0); Hemoglobin 13.9 g/dL (13.5-17.5); Lymphocytes # (auto) 0.9 10 ^3/uL (0.4-5.4); Lymphocytes % (auto) 20.9 % (10.0-50.0); Mean Corpuscular Hemoglobin 36.7 pg (28.0-32.0); Monocytes # (auto) 0.5 10 ^3/uL (0-1.3); Monocytes % (auto) 11.9 % (0.0-12.0); Neutrophils # (auto) 2.8 10 ^3/uL (1.6-8.6); Neutrophils % (auto) 62.8 % (37.0-80.0); Nucleated Red Blood Cells % 0.1 %; Platelet Count (auto) 135 10^3/uL (140-450); Red Blood Cells 3.78 10^6/uL (4.5-5.90); Red Cell Distribution Width 13.7 % (11.8-14.3); White Blood Cell 4.4 10^3/uL (4.4-10.8)
[2025-02-18] MEDS ORDERED: ACETAMINOPHEN 325 MG TAB PO PRN (07:15)
[2025-02-18] MEDS ORDERED: ONDANSETRON HCL 4 MG/2 ML VIAL IV PRN (07:15)
[2025-02-18] MEDS ORDERED: MORPHINE SULFATE INJ 2 MG/ml SYRG IV PRN (07:15)
[2025-02-18] MEDS: LABETALOL HCL 20 MG/4 ML VL IV ONE (07:22)
[2025-02-18 08:09] LABS: INR 1.23 (0.9-1.15); Prothrombin Time 12.8 sec (9.3-11.8)
[2025-02-18 08:17] VITALS: PULSE 98; RESP 16; O2SAT 97
--- NOTE | 2025-02-18 08:23 | DVHHP2 ---
History of Present Illness Reason for Visit: Abdominal pain History of Present Illness Yang Martin is a 54-year-old male with past medical history of hypertension, anxiety, depression, kidney stones, esophageal varices, umbilical hernia, cholelithiasis, alcohol dependence, alcoholic liver cirrhosis who presents to the ED for abdominal distention and pain. Patient states that he was recently here in 02/03/25 and had 9 L drained via paracentesis. Patient reports that he drinks 3 beers per day, quit smoking, and does not use illicit drugs. Patient denies any chest pain, shortness of breath, abdominal pain, vomiting, diarrhea,, lightheadedness, fever, chills, dizziness, visual disturbances, and tremors. Cardiovascular: HTN Hepatobiliary: Cirrhosis Psych: Anxiety, Depression Past Medical History kidney stones esophageal varices umbilical hernia cholelithiasis alcohol dependence Past Surgical History: Hernia Repair Family History: Cancer, DM, Other (Mom with cancer and brother with diabetes) Smoke: Quit ALCOHOL: heavy Drugs: None Lives: with Family Domestic Violence: Neg Review of Systems Gastrointestinal: Abdominal Pain, Other (Abdominal Distention) Allergies: Coded Allergies: NO KNOWN ALLERGIES (Unverified , 03/12/20) Exam Vital Signs Vital Signs Date Time Temp Pulse Resp B/P (MAP) Pulse Ox O2 Delivery O2 Flow Rate FiO2 02/18/25 06:11 98.1 120 25 160/106 (124) 96 98.1 General Appearance: Alert, Oriented X3, Cooperative, No acute distress HEENT: Atraumatic, PERRLA, EOMI, Mucous membr. moist/pink Respiratory: Normal air movement Cardiovascular: Normal S1, Normal S2 Abdominal: Other (Abdominal distention) Extremities: Normal pulses Skin: No significant lesion Neuro: Normal speech, Strength at 5/5 X4 ext, Normal tone, Sensation intact Psych/Mental Status: Mental status NL, Mood NL Labs/Xrays Labs Test 02/18/25 06:18 Range/Units White Blood Count 4.4 4.4-10.8 10^3/uL Red Blood Count 3.78 L 4.5-5.90 10^6/uL Hemoglobin 13.9 13.5-17.5 g/dL Hematocrit 39.7 L 41.0-53.0 % Mean Corpuscular Volume 105.0 H 80.0-100.0 fL Mean Corpuscular Hemoglobin 36.7 H 28.0-32.0 pg Mean Corpuscular Hemoglobin Concent 35.0 32.0-36.0 g/dL Red Cell Distribution Width 13.7 11.8-14.3 % Platelet Count 135 L 140-450 10^3/uL Mean Platelet Volume 6.9 6.9-10.8 fL Neutrophils (%) (Auto) 62.8 37.0-80.0 % Lymphocytes (%) (Auto) 20.9 10.0-50.0 % Monocytes (%) (Auto) 11.9 0.0-12.0 % Eosinophils (%) (Auto) 3.4 0.0-7.0 % Basophils (%) (Auto) 1.0 0.0-2.0 % Neutrophils # (Auto) 2.8 1.6-8.6 10 ^3/uL Lymphocytes # (Auto) 0.9 0.4-5.4 10 ^3/uL Monocytes # (Auto) 0.5 0-1.3 10 ^3/uL Eosinophils # (Auto) 0.1 0-0.8 10 ^3/uL Basophils # (Auto) 0 0-0.2 10 ^3/uL Nucleated Red Blood Cells 0.1 % Sodium Level 130 L 136-145 mmol/L Potassium Level 3.9 3.5-5.1 mmol/L Chloride Level 101 98-107 mmol/L Carbon Dioxide Level 21 20-31 mmol/L Anion Gap 8 5-15 Blood Urea Nitrogen < 5 L 9-23 mg/dL Creatinine 0.68 L 0.700-1.30 mg/dL Glomerular Filtration Rate Calc 111 >90 mL/min BUN/Creatinine Ratio 7.4 L 10.0-20.0 Serum Glucose 108 H 74-106 mg/dL Lactic Acid Level 1.9 0.4-2.0 mmol/L Calcium Level 8.3 L 8.7-10.4 mg/dL Total Bilirubin 3.8 H 0.2-1.0 mg/dL Aspartate Amino Transferase (AST) 97 H 13-40 U/L Alanine Aminotransferase (ALT) 37 7-40 U/L Alkaline Phosphatase 126 H 46-116 U/L Total Protein 7.4 5.7-8.2 g/dL Albumin 2.8 L 3.2-4.8 g/dL Lipase 43 12-53 U/L Assessment/Plan Assessment/Plan Assessment Rule out SBP Liver cirrhosis with ascites Thrombocytopenia Hyponatremia Hyperbilirubinemia Hypoalbuminemia ETOH abuse Obesity History of hypertension History of kidney stones History of hernia repair History of anxiety History of depression Plan Admit to telemetry IV antibiotics for empirical coverage CT abdomen and pelvis Blood culture Urine cultures UA Ultrasound/IR for paracentesis Blood alcohol PT/PTT CIWA UDS Hepatitis panel Diurese Magnesium level Thiamine Folic acid Multivitamins Librium Antiemetics Pain management Counseled patient on cessation of EtOH use Educated patient on lifestyle modifications, diet, and exercise DVT ppx - hold ac d/t thrombocytopenia, scds PUD PPX -Protonix and sucralfate, home medication Discussed plan of care with patient and nurse Home meds reconciled Meld score 20 points with 19.6% estimated 3 month mortality CIWA score at time of admission 0 points Plan discussed with: Patient My Orders Orders - CAMILO PARSONS Procedure Category Date Status Time Zosyn Extended PHA 02/18/25 Transmitted Infusion 14:00 Prothrombin Time W/ LAB 02/18/25 Transmitted INR 07:03 Admit ADMIT 02/18/25 Transmitted 07:03 Allergies JOSE 02/18/25 Transmitted 07:03 Code Status CODE 02/18/25 Transmitted 07:03 Hydrocodone-Acet PHA 02/18/25 Transmitted 5/325mg Tab ([place] 07:15 Ondansetron Hcl PHA 02/18/25 Transmitted (Zofran) 07:15 Complete Blood Count LAB 02/19/25 Verified 04:00 Comprehensive LAB 02/19/25 Verified Metabolic Panel 04:00 Cardiac DIET 02/18/25 Transmitted Diet-2gna,Lofat,Lochol Breakfast Acetaminophen Tablet PHA 02/18/25 Transmitted (Tylenol Tablet) 07:15 Morphine Sulfate PHA 02/18/25 Transmitted Injection 07:15 Sequential JOSE 02/18/25 Transmitted Compression Device Date of Service: Feb 18, 2025 Billing Provider: CAMILO PARSONS Common Visit Codes: [id number] INP/OBS CARE (HIGH) CAMILO PARSONS Feb 18, 2025 08:23
--- NOTE | 2025-02-18 08:57 | DVH ---
CLINICAL INFORMATION: Abdominal pain. TECHNIQUE: Axial CT images of the abdomen and pelvis were obtained without IV contrast. Coronal and s agittal reformatted images were obtained, reviewed, and stored. Evaluation of the parenchymal organs is limited without IV contrast. Evaluation of the bowel and mesentery is limited without oral contras t. All CT scans at this medical facility are performed using dose modulation techniques as appropriat e to a performed exam including the following: Automated exposure control was utilized; adjustment of the MA and/or KV according to patient size; and use of iterative reconstruction technique. CTDIvol = 23.57 mGy DLP = 1429.97 mGy-cm COMPARISON: CT CT AB PEL WO CON-NO ORAL OR IV on DOS: 02/02/25, CT CT AB PEL WO CON-NO ORAL OR IV on DO S: 11/25/24, CT CT AB PEL WO CON-NO ORAL OR IV on DOS: 07/29/24 FINDINGS: Lung bases: Atelectasis in the lung bases. Liver: Cirrhotic liver morphology with nodular contour and relative enlargement of the left hepatic l obe. Biliary: Calcified gallstones in the gallbladder. Spleen: Unremarkable. Pancreas: Grossly unremarkable in its noncontrast enhanced appearance. Adrenal glands: Unremarkable. No mass. Kidneys: No hydronephrosis. No renal or ureteral calculi. Aorta/Vascular: Scattered atherosclerotic calcification. No abdominal aortic aneurysm. Retroperitoneum: No mass or lymphadenopathy. Bowel/mesentery: No small bowel obstruction. Appendix is not visualized. Large amount of ascites in t he abdomen and pelvis. Gastroesophageal varices. Pelvic organs: Grossly unremarkable. Bladder: Grossly unremarkable. Abdominal wall: Moderate-sized ventral hernia near the level of the umbilicus, containing ascites. Bones: No acute fracture or suspicious intraosseous lesion. IMPRESSION: 1. Large amount of ascites in the abdomen and pelvis. 2. Cirrhotic liver morphology. 3. Ventral hernia containing ascites. 4. Gastroesophageal varices. 5. Portions of the anterior aspect of the abdomen are excluded from the [id number] of the exam, li miting evaluation.
[2025-02-18] MEDS ORDERED: chlordiazePOXIDE HCL 5 MG CAP PO PRN (09:00)
[2025-02-18] MEDS: PIPERACILLIN-TAZOB 3.375GM 100 ML IV ONE (09:15)
[2025-02-18 09:27] LABS: Blood Alcohol 103.1 mg/dL (<10)
--- NOTE | 2025-02-18 09:29 | DVH ---
US PARACENTESIS, HISTORY: ASCITES PROCEDURE: Informed consent was obtained. The patient was placed in supine position. A limited locali zation ultrasound of the abdomen was obtained, and the skin site over the largest pocket of fluid was marked and entry site was prepped with chlorhexidine which was allowed to dry and draped in the usua l sterile fashion. Time out was performed. Following administration of 1% lidocaine local anesthetic, a 5 Guatemalan centesis needle catheter was percutaneously inserted into the peritoneal collection until fluid was aspirated. The catheter was advanced into the fluid collection and [place] [id number] cc of fluid was aspirated . The catheter was then removed and a sterile dressing applied. g m of albumin colloid infusion was given IV. No immediate complication was identified. FINDINGS: Limited ultrasound imaging demonstrates large ascites. Aspirated fluid was clear and serous . IMPRESSION: US-guided paracentesis with 11.3L removed.
[2025-02-18 09:35] LABS: Magnesium 1.6 mg/dL (1.6-2.6)
[2025-02-18] MEDS ORDERED: FUROSEMIDE 40 MG/4 ML VIAL IV SCH (10:00)
[2025-02-18] MEDS ORDERED: THIAMINE HCL 100 MG TAB PO SCH (10:00)
[2025-02-18] MEDS ORDERED: MULTIPLE VITAMIN TAB PO SCH (10:00)
[2025-02-18] MEDS ORDERED: PATIENTS OWN MEDICATION (Folic Acid 1 MG) PO SCH (10:00)
[2025-02-18] MEDS ORDERED: LISINOPRIL 20 MG TAB PO SCH (10:00)
[2025-02-18] MEDS: PANTOPRAZOLE 40 MG TAB PO SCH (10:20)
[2025-02-18] MEDS: MAGNESIUM OXIDE 400 MG TAB PO SCH (10:21)
[2025-02-18] MEDS: POTASSIUM CHL 20 Meq TABLET PO SCH (10:21)
[2025-02-18] MEDS: FOLIC ACID 1 MG TAB PO SCH (10:21)
[2025-02-18] MEDS: THIAMINE HCL 100 MG TAB PO SCH (10:21)
[2025-02-18] MEDS: MULTIPLE VITAMIN TAB PO SCH (10:21)
[2025-02-18] MEDS: CHOLECALCIFEROL (VITD3) 1,000UNIT=25mCg TAB PO SCH (10:22)
[2025-02-18] MEDS: LACTULOSE 20Gm/30ML SOLN PO SCH (10:23)
[2025-02-18] MEDS: BUMETANIDE 1 MG TAB PO SCH (10:23)
[2025-02-18] MEDS: PROPRANOLOL HCL 20 MG TAB PO SCH (10:23)
[2025-02-18] MEDS: SPIRONOLACTONE 25 MG TAB PO SCH (10:23)
[2025-02-18] MEDS: SUCRALFATE 1 GM TAB PO SCH (11:36)
[2025-02-18] MEDS: ACAMPROSATE CALCIUM 333 MG PO SCH (12:00)
[2025-02-18] MEDS: HYDROcodone-ACET 5/325MG TAB PO PRN (12:08)
[2025-02-18] MEDS: PIPERACILLIN-TAZOB 3.375GM 100 ML IV SCH (16:43)
[2025-02-18 17:57] VITALS: BP 121/77; PULSE 81; PULSE 87; RESP 16; RESP 18; TEMP 99.5; O2SAT 99
[2025-02-18] MEDS: FUROSEMIDE 100 MG/10ML VIAL IV SCH (18:21)
[2025-02-18 20:00] VITALS: PULSE 78; PULSE 84; RESP 20; O2SAT 98
[2025-02-18 20:39] LABS: Urine Bacteria None Seen /hpf (None Seen)
[2025-02-18 21:00] VITALS: BP 136/80; PULSE 84; RESP 20; TEMP 97.6; O2SAT 98
[2025-02-18 21:05] LABS: Urine Blood Negative /uL (Negative); Urine Clarity Clear (Clear); Urine Color Light-Yellow (Yellow); Urine Protein, UAD Negative (Negative); Urine Specific Gravity 1.005 (1.001-1.035); Urine Squamous Epithelial Cell None Seen /hpf (<5); Urine Urobilinogen Normal (Negative); Urine WBC < 1 /HPF (0-3); Urine pH 6.5 (5.0-9.0)
[2025-02-18 21:11] LABS: Benzodiazephine Screen, Urine Neg (NEGATIVE)
[2025-02-18 21:33] LABS: Amphetamine Screen, Urine Neg (NEGATIVE); Barbiturate Scree,Urine Neg (NEGATIVE); Cannabinoid Screen, Urine Neg (NEGATIVE); Cocaine Screen, Urine Neg (NEGATIVE); Opiate Scree,Urine Neg (NEGATIVE); Phencyclidine Screen, Urine Neg (NEGATIVE)
[2025-02-19] VITALS (9 sets, daily range): BP systolic 94–115; BP diastolic 60–67; PULSE 72–84; RESP 16–20; TEMP 97.6–98.7; O2SAT 98–99
[2025-02-19 08:24] LABS: Basophils # (auto) 0 10 ^3/uL (0-0.2); Eosinophils # (auto) 0.2 10 ^3/uL (0-0.8); Hemoglobin 12.6 g/dL (13.5-17.5); Lymphocytes # (auto) 0.8 10 ^3/uL (0.4-5.4); Monocytes # (auto) 0.6 10 ^3/uL (0-1.3); Red Blood Cells 3.41 10^6/uL (4.5-5.90)
[2025-02-19 08:29] LABS: Basophils % (auto) 0.7 % (0.0-2.0); Eosinophils % (auto) 4.9 % (0.0-7.0); Hematocrit 35.4 % (41.0-53.0); Mean Corpuscular Hemoglobin 36.8 pg (28.0-32.0); Mean Corpuscular Hgb Conc. 35.5 g/dL (32.0-36.0); Mean Corpuscular Volume 103.8 fL (80.0-100.0); Monocytes % (auto) 15.5 % (0.0-12.0); Neutrophils # (auto) 2.3 10 ^3/uL (1.6-8.6); Neutrophils % (auto) 57.9 % (37.0-80.0); Nucleated Red Blood Cells % 0.1 %; Platelet Count (auto) 98 10^3/uL (140-450); Red Cell Distribution Width 13.8 % (11.8-14.3)
[2025-02-19 08:37] LABS: Alanine Aminotransferase 28 U/L (7-40); Alkaline Phosphatase 101 U/L (46-116); Anion Gap 9 (5-15); BUN/Creatinine Ratio 9.4 (10.0-20.0); Blood Urea Nitrogen 10 mg/dL (9-23); Carbon Dioxide 26 mmol/L (20-31); Chloride 100 mmol/L (98-107); Glucose 92 mg/dL (74-106); Potassium 3.9 mmol/L (3.5-5.1); Total Protein 5.8 g/dL (5.7-8.2)
[2025-02-19 08:38] LABS: Albumin 2.2 g/dL (3.2-4.8); Aspartate Aminotransferase 66 U/L (13-40); Bilirubin, Total 4.3 mg/dL (0.2-1.0); Calcium 8.1 mg/dL (8.7-10.4); Sodium 135 mmol/L (136-145)
[2025-02-19 11:40] LABS: Hepatitis A Ab IgM Negative; Hepatitis B Core IgM Negative (Negative); Hepatitis B Surface Antigen Negative (Negative); Hepatitis C Antibody Negative (Negative)
[2025-02-20] VITALS (8 sets, daily range): BP systolic 96–110; BP diastolic 55–67; PULSE 69–96; RESP 15–20; TEMP 98–98.2; O2SAT 96–100
[2025-02-21 01:00] VITALS: BP 91/52; PULSE 77; RESP 18; TEMP 98.4; O2SAT 97
[2025-02-21 05:00] VITALS: BP 94/57; PULSE 73; RESP 17; TEMP 98.5; O2SAT 98
[2025-02-21 08:00] VITALS: PULSE 79
[2025-02-21 09:00] VITALS: BP 99/63; PULSE 76; RESP 18; TEMP 97.9; O2SAT 97
[2025-02-21] MEDS ORDERED: BUME1TAB3 PO (12:20)
--- NOTE | 2025-02-21 12:20 | DVHDS2 ---
Discharge Summary Date of Admission Feb 18, 2025 at 07:03 Date of Discharge: Feb 21, 2025 Labs/Diagnostic Data: Laboratory Results Test 02/19/25 07:40 02/18/25 20:37 02/18/25 06:18 White Blood Count 4.0 10^3/uL (4.4-10.8) Red Blood Count 3.41 10^6/uL (4.5-5.90) Hemoglobin 12.6 g/dL (13.5-17.5) Hematocrit 35.4 % (41.0-53.0) Mean Corpuscular Volume 103.8 fL (80.0-100.0) Mean Corpuscular Hemoglobin 36.8 pg (28.0-32.0) Mean Corpuscular Hemoglobin Concent 35.5 g/dL (32.0-36.0) Red Cell Distribution Width 13.8 % (11.8-14.3) Platelet Count 98 10^3/uL (140-450) Mean Platelet Volume 7.0 fL (6.9-10.8) Neutrophils (%) (Auto) 57.9 % (37.0-80.0) Lymphocytes (%) (Auto) 21.0 % (10.0-50.0) Monocytes (%) (Auto) 15.5 % (0.0-12.0) Eosinophils (%) (Auto) 4.9 % (0.0-7.0) Basophils (%) (Auto) 0.7 % (0.0-2.0) Neutrophils # (Auto) 2.3 10 ^3/uL (1.6-8.6) Lymphocytes # (Auto) 0.8 10 ^3/uL (0.4-5.4) Monocytes # (Auto) 0.6 10 ^3/uL (0-1.3) Eosinophils # (Auto) 0.2 10 ^3/uL (0-0.8) Basophils # (Auto) 0 10 ^3/uL (0-0.2) Nucleated Red Blood Cells 0.1 % Sodium Level 135 mmol/L (136-145) Potassium Level 3.9 mmol/L (3.5-5.1) Chloride Level 100 mmol/L (98-107) Carbon Dioxide Level 26 mmol/L (20-31) Anion Gap 9 (5-15) Blood Urea Nitrogen 10 mg/dL (9-23) Creatinine 1.06 mg/dL (0.700-1.30) Glomerular Filtration Rate Calc 84 mL/min (>90) BUN/Creatinine Ratio 9.4 (10.0-20.0) Serum Glucose 92 mg/dL (74-106) Calcium Level 8.1 mg/dL (8.7-10.4) Total Bilirubin 4.3 mg/dL (0.2-1.0) Aspartate Amino Transferase (AST) 66 U/L (13-40) Alanine Aminotransferase (ALT) 28 U/L (7-40) Alkaline Phosphatase 101 U/L (46-116) Total Protein 5.8 g/dL (5.7-8.2) Albumin 2.2 g/dL (3.2-4.8) Urine Color Light-yellow (Yellow) Urine Clarity Clear (Clear) Urine pH 6.5 (5.0-9.0) Urine Specific [place] 1.005 (1.001-1.035) Urine Protein Negative (Negative) Urine Ketones Negative (Negative) Urine Blood Negative /uL (Negative) Urine Nitrite Negative (Negative) Urine Bilirubin Negative (Negative) Urine Urobilinogen Normal mg/dL (Negative) Urine Leukocyte Esterase Negative /uL (Negative) Urine RBC 4 /hpf (0 - 3) Urine Microscopic WBC < 1 /HPF (0-3) Urine Squamous Epithelial Cells None seen /hpf (<5) Urine Bacteria None seen /hpf (None Seen) Urine Glucose Normal mg/dL (Normal) Urine Opiates Screen Neg (NEGATIVE) Urine Fentanyl Screen Neg (NEGATIVE) Urine Barbiturates Screen Neg (NEGATIVE) Urine Phencyclidine Screen Neg (NEGATIVE) Urine Amphetamines Screen Neg (NEGATIVE) Urine Benzodiazepines Screen Neg (NEGATIVE) Urine Cocaine Screen Neg (NEGATIVE) Urine Cannabinoids Screen Neg (NEGATIVE) Prothrombin Time 12.8 sec (9.3-11.8) Prothrombin Time INR 1.23 (0.9-1.15) Lactic Acid Level 1.9 mmol/L (0.4-2.0) Magnesium Level 1.6 mg/dL (1.6-2.6) Lipase 43 U/L (12-53) Plasma/Serum Blood Alcohol 103.1 mg/dL (<10) Hepatitis A IgM Antibody Negative Hepatitis B Surface Antigen Negative (Negative) Hepatitis B Core IgM Antibody Negative (Negative) Hepatitis C Antibody Negative (Negative) Other Laboratory Tests 02/19/25 07:40 Brief Hx & Hospital Course: Yang Martin is a 54-year-old male with past medical history of hypertension, anxiety, depression, kidney stones, esophageal varices, umbilical hernia, cholelithiasis, alcohol dependence, alcoholic liver cirrhosis who presents to the ED for abdominal distention and pain. Patient states that he was recently here in 02/03/25 and had 9 L drained via paracentesis. Patient reports that he drinks 3 beers per day, quit smoking, and does not use illicit drugs. Patient denies any chest pain, shortness of breath, abdominal pain, vomiting, diarrhea,, lightheadedness, fever, chills, dizziness, visual disturbances, and tremors. Rule out SBP Liver cirrhosis with ascites Thrombocytopenia Hyponatremia Hyperbilirubinemia Hypoalbuminemia ETOH abuse Obesity History of hypertension History of kidney stones History of hernia repair History of anxiety History of depression pt had paracentesis done in ER however due to significant fluid overload with edema in LE b/l, will continue with diuresis daily improved and discharged to home increase bumex to bid Condition at Discharge: Fair Final Diagnosis/Problems List see above Discharge Disposition: Home Discharge Instruct/Medications Diet: Cardiac 2g Na,low cholest Activity: No Restrictions, As Tolerated Discharge Statement: "Patient was advised to return to the ER or call 911 if any headaches, dizziness, shortness of breath, chest pain, abdominal pain, bleeding, fevers, or worsening of medical condition. Patient was counseled about treatment plan, medications, possible side effects, patientverbalized understanding. All questions were answered to the best of my ability. This discharge took greater then 30 minutes in planning, reviewing documentation, counseling the patient, and discussing with other team members." ASSESSMENT ASSESSMENT Assessment Date of Service: Feb 21, 2025 Billing Provider: KAYLAN MELVIN DO Common Visit Codes: [id number] DISCH DAY >30min KAYLAN MELVIN DO Feb 21, 2025 12:20
--- NOTE | 2025-02-21 12:22 | DVHPN2 ---
Reviewed: Care Plan, H&P, Labs, Medications Changes from previous H/P or p: No Changes General: Per HPI Gastrointestinal: Abdominal Pain, Other (Abdominal Distention) Objective Vitals Vital Signs Date Time Temp Pulse Resp B/P (MAP) Pulse Ox O2 Delivery O2 Flow Rate FiO2 02/21/25 09:59 99/63 02/21/25 09:00 97.9 76 18 97 97.9 02/21/25 08:04 Room Air* 0 21 Intake/Output Intake and Output 02/21/25 07:00 Intake Total 1000 ml Output Total 2200 ml Balance -1200 ml Intake Oral 800 ml IV Total 200 ml Output Urine Total 2200 ml # Voids 4 # Bowel Movements 1 General Appearance: Alert, Oriented X3 Cardiovascular: Regular rate, Normal S1 Abdomen: Normal bowel sounds Neuro: Normal speech Medications Current Medications Medications Dose Ordered Sig/Adama Route Start Time Stop Time Status Last Admin Dose Admin Piperacillin Sod/ Tazobactam Sod 100 ml @ 25 mls/hr Q8HR IV 02/18/25 14:00 02/21/25 06:32 25 MLS/HR Acetaminophen/ Hydrocodone Bitart 1 tab Q4HP PRN PO 02/18/25 07:15 02/18/25 12:08 1 TAB Ondansetron HCl 4 mg Q4HP PRN IV 02/18/25 07:15 Acetaminophen 650 mg Q6HP PRN PO 02/18/25 07:15 Morphine Sulfate 2 mg Q4HPRN PRN IV 02/18/25 07:15 Spironolactone 25 mg DAILY PO 02/18/25 10:00 02/21/25 09:56 25 MG Lisinopril 20 mg DAILYPRN PO 02/18/25 10:00 Hold Pantoprazole Sodium 40 mg BID PO 02/18/25 10:00 02/21/25 09:56 40 MG Propranolol HCl 20 mg BID PO 02/18/25 10:00 02/20/25 21:39 20 MG Sucralfate 1 gm ACHS PO 02/18/25 11:30 02/21/25 11:54 1 GM Cholecalciferol 2,000 unit DAILY PO 02/18/25 10:00 02/21/25 09:56 2,000 UNIT Magnesium Oxide 400 mg DAILY PO 02/18/25 10:00 02/21/25 09:56 400 MG Potassium Chloride 20 meq DAILY PO 02/18/25 10:00 02/21/25 09:56 20 MEQ Lactulose 15 ml DAILY PO 02/18/25 10:00 02/21/25 09:55 15 ML Thiamine HCl 100 mg DAILY PO 02/18/25 10:00 02/21/25 09:56 100 MG Folic Acid 1 mg DAILY PO 02/18/25 10:00 02/21/25 09:56 1 MG Multivitamins 1 tab DAILY PO 02/18/25 10:00 02/21/25 09:56 1 TAB Chlordiazepoxide HCl 5 mg Q6HPRN PRN PO 02/18/25 09:00 Furosemide 60 mg BIDD IV 02/18/25 18:00 02/20/25 17:01 60 MG Laboratory Results Laboratory Tests 02/19/25 07:40 Urinalysis Test 02/18/25 20:37 Urine Color Light-yellow (Yellow) Urine Clarity Clear (Clear) Urine pH 6.5 (5.0-9.0) Urine Specific [place] 1.005 (1.001-1.035) Urine Protein Negative (Negative) Urine Ketones Negative (Negative) Urine Blood Negative /uL (Negative) Urine Nitrite Negative (Negative) Urine Bilirubin Negative (Negative) Urine Urobilinogen Normal mg/dL (Negative) Urine Leukocyte Esterase Negative /uL (Negative) Urine RBC 4 /hpf (0 - 3) Urine Microscopic WBC < 1 /HPF (0-3) Urine Squamous Epithelial Cells None seen /hpf (<5) Urine Bacteria None seen /hpf (None Seen) Urine Glucose Normal mg/dL (Normal) Microbiology Microbiology Date/Time Source Procedure Growth Status 02/18/25 20:55 Nose MRSA Screen - Final Complete 02/18/25 20:37 Voided Urine Urine Culture - Final Pseudomonas aeruginosa Complete 02/18/25 06:18 Blood Blood Culture - Preliminary NO GROWTH AFTER 72 HOURS OF INCUBATION. Resulted Labs and/or images reviewed: Labs reviewed by me, Image(s) reviewed by me Assessment/Plan Assessment/Plan Rule out SBP Liver cirrhosis with ascites Thrombocytopenia Hyponatremia Hyperbilirubinemia Hypoalbuminemia ETOH abuse Obesity History of hypertension History of kidney stones History of hernia repair History of anxiety History of depression pt had paracentesis done in ER however due to significant fluid overload with edema in LE b/l, will continue with diuresis daily Plan discussed with: Patient My Orders Orders - MELVIN,KAYLAN T DO Procedure Category Date Status Time Discharge DISCHARGE 02/21/25 Transmitted 12:18 Date of Service: Feb 19, 2025 Billing Provider: KAYLAN MELVIN DO Common Visit Codes: [id number] INP/OBS CARE(HIGH) KAYLAN MELVIN DO Feb 21, 2025 12:22
--- NOTE | 2025-02-21 12:23 | DVHPN2 ---
Reviewed: Care Plan, H&P, Labs, Medications Changes from previous H/P or p: No Changes General: Per HPI Gastrointestinal: Abdominal Pain, Other (Abdominal Distention) Objective Vitals Vital Signs Date Time Temp Pulse Resp B/P (MAP) Pulse Ox O2 Delivery O2 Flow Rate FiO2 02/21/25 09:59 99/63 02/21/25 09:00 97.9 76 18 97 97.9 02/21/25 08:04 Room Air* 0 21 Intake/Output Intake and Output 02/21/25 07:00 Intake Total 1000 ml Output Total 2200 ml Balance -1200 ml Intake Oral 800 ml IV Total 200 ml Output Urine Total 2200 ml # Voids 4 # Bowel Movements 1 General Appearance: Alert, Oriented X3 Cardiovascular: Regular rate, Normal S1 Abdomen: Normal bowel sounds Neuro: Normal speech Medications Current Medications Medications Dose Ordered Sig/Adama Route Start Time Stop Time Status Last Admin Dose Admin Piperacillin Sod/ Tazobactam Sod 100 ml @ 25 mls/hr Q8HR IV 02/18/25 14:00 02/21/25 06:32 25 MLS/HR Acetaminophen/ Hydrocodone Bitart 1 tab Q4HP PRN PO 02/18/25 07:15 02/18/25 12:08 1 TAB Ondansetron HCl 4 mg Q4HP PRN IV 02/18/25 07:15 Acetaminophen 650 mg Q6HP PRN PO 02/18/25 07:15 Morphine Sulfate 2 mg Q4HPRN PRN IV 02/18/25 07:15 Spironolactone 25 mg DAILY PO 02/18/25 10:00 02/21/25 09:56 25 MG Lisinopril 20 mg DAILYPRN PO 02/18/25 10:00 Hold Pantoprazole Sodium 40 mg BID PO 02/18/25 10:00 02/21/25 09:56 40 MG Propranolol HCl 20 mg BID PO 02/18/25 10:00 02/20/25 21:39 20 MG Sucralfate 1 gm ACHS PO 02/18/25 11:30 02/21/25 11:54 1 GM Cholecalciferol 2,000 unit DAILY PO 02/18/25 10:00 02/21/25 09:56 2,000 UNIT Magnesium Oxide 400 mg DAILY PO 02/18/25 10:00 02/21/25 09:56 400 MG Potassium Chloride 20 meq DAILY PO 02/18/25 10:00 02/21/25 09:56 20 MEQ Lactulose 15 ml DAILY PO 02/18/25 10:00 02/21/25 09:55 15 ML Thiamine HCl 100 mg DAILY PO 02/18/25 10:00 02/21/25 09:56 100 MG Folic Acid 1 mg DAILY PO 02/18/25 10:00 02/21/25 09:56 1 MG Multivitamins 1 tab DAILY PO 02/18/25 10:00 02/21/25 09:56 1 TAB Chlordiazepoxide HCl 5 mg Q6HPRN PRN PO 02/18/25 09:00 Furosemide 60 mg BIDD IV 02/18/25 18:00 02/20/25 17:01 60 MG Laboratory Results Laboratory Tests 02/19/25 07:40 Urinalysis Test 02/18/25 20:37 Urine Color Light-yellow (Yellow) Urine Clarity Clear (Clear) Urine pH 6.5 (5.0-9.0) Urine Specific [place] 1.005 (1.001-1.035) Urine Protein Negative (Negative) Urine Ketones Negative (Negative) Urine Blood Negative /uL (Negative) Urine Nitrite Negative (Negative) Urine Bilirubin Negative (Negative) Urine Urobilinogen Normal mg/dL (Negative) Urine Leukocyte Esterase Negative /uL (Negative) Urine RBC 4 /hpf (0 - 3) Urine Microscopic WBC < 1 /HPF (0-3) Urine Squamous Epithelial Cells None seen /hpf (<5) Urine Bacteria None seen /hpf (None Seen) Urine Glucose Normal mg/dL (Normal) Microbiology Microbiology Date/Time Source Procedure Growth Status 02/18/25 20:55 Nose MRSA Screen - Final Complete 02/18/25 20:37 Voided Urine Urine Culture - Final Pseudomonas aeruginosa Complete 02/18/25 06:18 Blood Blood Culture - Preliminary NO GROWTH AFTER 72 HOURS OF INCUBATION. Resulted Assessment/Plan Assessment/Plan Rule out SBP Liver cirrhosis with ascites Thrombocytopenia Hyponatremia Hyperbilirubinemia Hypoalbuminemia ETOH abuse Obesity History of hypertension History of kidney stones History of hernia repair History of anxiety History of depression pt had paracentesis done in ER however due to significant fluid overload with edema in LE b/l, will continue with diuresis daily Plan discussed with: Patient My Orders Orders - KAYLAN MELVIN DO Procedure Category Date Status Time Discharge DISCHARGE 02/21/25 Transmitted 12:18 Date of Service: Feb 20, 2025 Billing Provider: KAYLAN MELVIN DO Common Visit Codes: [id number] INP/OBS CARE(HIGH) KAYLAN MELVIN DO Feb 21, 2025 12:23
[2025-02-21 12:50] VITALS: BP 101/63; PULSE 85; RESP 16; O2SAT 97
[2025-02-21 12:52] VITALS: BP 99/63; PULSE 79; TEMP 36.6
--- NOTE | 2025-02-21 20:37 | DVHINCON2 ---
Date of service: Feb 20, 2025 Referring Physician Kaylan Melvin MD Reason for Consultation Hyponatremia History of Present Illness Yang Calvo is a 54-year-old M with Past Medical History pertinent for Hypertension, Anxiety, Depression and Alcoholic liver cirrhosis who presented to the hospital with complaint of abdominal distention and pain. Patient reports also undergoing paracentesis on 02/03/25 with 9L drained. Patient reports drinking at least 3 beers per day. Denies smoking or any illicit drug use. While in ED, CT Abdomen Pelvis reported large amount of ascites in the abdomen and pelvis; cirrhotic liver morphology; ventral hernia containing ascites; gastroesophageal varices; portions of the anterior aspect of the abdomen are excluded from the [id number] of the exam, limiting evaluation.Patient underwent paracentesis in ED. Labs were also remarkable for Na 130 improved to 135 yesterday. Allergies: Coded Allergies: NO KNOWN ALLERGIES (Unverified , 03/12/20) Home Meds Active Scripts Bumetanide (Bumetanide) 1 Mg Tab, 1 TAB PO BID for 30 Days, #60 TAB 3 Refills Prov:KAYLAN MELVIN DO 02/21/25 Magnesium Oxide (MAGNESIUM OXIDE) 400 Mg Tab, 400 MG OR DAILY for 30 Days, #30 TAB Prov:PORSCHE CROWE RESIDENT 07/31/24 Potassium Chloride (Potassium Chloride ER) 20 Meq Tab, 20 MEQ PO DAILY for 30 Days, #30 TAB Prov:PORSCHE CROWE RESIDENT 07/31/24 Multiple Vitamin (Multivitamins) Tab, 1 TAB PO DAILY for 90 Days, #90 TAB 0 Refills Prov:ANUJ MULLIGAN YOUTH MANAGER 04/06/24 Sucralfate (CARAFATE) 1 Gm Tab, 1 GM OR QID for 30 Days, #120 TAB Prov:SALANUJ MONTANO YOUTH MANAGER 04/06/24 Lisinopril (Lisinopril) 20 Mg Tab, 1 TAB PO DAILYPRN for 60 Days, #60 TAB Prov:SALANUJ MONTANO YOUTH MANAGER 04/06/24 Propranolol HCl (Propranolol Hydrochloride) 20 Mg Tab, 1 TAB PO BID for 60 Days, #120 TAB Prov:ANUJ MULLIGAN YOUTH MANAGER 04/06/24 Reported Medications Furosemide (Furosemide) 40 Mg Tab, 1 TAB PO DAILY for 14 Days, #14 02/03/25 Cholecalciferol (VITAMIN D3) 2,000 Unit Tab, 1 TAB PO DAILY for 90 Days, #90 02/03/25 Spironolactone (Spironolactone) 25 Mg Tab, 1 TAB PO DAILY for 30 Days, #30 02/03/25 Pantoprazole Sodium Sesquihydr (Protonix) 40 Mg Tab, 1 TAB PO BID for 30 Days, #60 02/02/25 Lactulose (Lactulose) 10 Gm/15 Ml [place], ML PO 11/25/24 Acamprosate Calcium (ACAMPROSATE CALCIUM DR) 333 Mg Tab, 333 MG PO QID, TAB 07/31/24 Folic Acid (Folic Acid) 1 Mg Tab, 1 MG PO DAILY, TAB 07/31/24 Thiamine Hcl (VITAMIN B-1) 100 Mg Tb, 1 TAB PO DAILY for 30 Days, #30 07/31/24 Family History: FH: cancer G8 MOTHER Hypertension G8 FATHER, , Onset:Unknown G8 FATHER Hypertension G8 FATHER, , Onset:Unknown G8 FATHER Seizure disorder G8 BROTHER, (unknown) Review of Systems Gastrointestinal: Abdominal Pain, Other (Abdominal Distention) All other systems reviewed and negative unless otherwise noted in HPI. H&P Exam Vital Signs/I&O Vital Sign Date Time Temp Pulse Resp B/P (MAP) Pulse Ox O2 Delivery O2 Flow Rate FiO2 02/21/25 12:52 36.6 79 02/21/25 12:50 16 101/63 (76) 97 02/21/25 08:04 Room Air* 0 21 Intake and Output 02/20/25 02/21/25 19:00 07:00 Intake Total 1000 ml Output Total 1050 ml 1150 ml Balance -50 ml -1150 ml Intake Oral 800 ml IV Total 200 ml Output Urine Total 1050 ml 1150 ml # Voids 4 # Bowel Movements 1 Physical Exam Vitals and nursing notes reviewed. General Appearance: In no acute distress. HEENT: Atraumatic, PERRLA, EOMI, Mucous membr. moist/pink Respiratory: Normal air movement Cardiovascular: Normal S1, Normal S2 Abdominal: Soft, Nontender, nondistended Extremities: Normal pulses Skin: No significant lesion Neuro: Alert, Oriented X3, Normal speech, Strength at 5/5 X4 ext, Normal tone, Sensation intact Psych/Mental Status: Mental status NL, Mood NL Labs/Diagnostic Data Labs/Diagnostic Data Laboratory Tests Test 02/19/25 07:40 02/18/25 20:37 02/18/25 06:18 Range/Units White Blood Count 4.0 L 4.4 4.4-10.8 10^3/uL Red Blood Count 3.41 L 3.78 L 4.5-5.90 10^6/uL Hemoglobin 12.6 L 13.9 13.5-17.5 g/dL Hematocrit 35.4 #L 39.7 L 41.0-53.0 % Mean Corpuscular Volume 103.8 H 105.0 H 80.0-100.0 fL Mean Corpuscular Hemoglobin 36.8 H 36.7 H 28.0-32.0 pg Mean Corpuscular Hemoglobin Concent 35.5 35.0 32.0-36.0 g/dL Red Cell Distribution Width 13.8 13.7 11.8-14.3 % Platelet Count 98 L 135 L 140-450 10^3/uL Mean Platelet Volume 7.0 6.9 6.9-10.8 fL Neutrophils (%) (Auto) 57.9 62.8 37.0-80.0 % Lymphocytes (%) (Auto) 21.0 20.9 10.0-50.0 % Monocytes (%) (Auto) 15.5 H 11.9 0.0-12.0 % Eosinophils (%) (Auto) 4.9 3.4 0.0-7.0 % Basophils (%) (Auto) 0.7 1.0 0.0-2.0 % Neutrophils # (Auto) 2.3 2.8 1.6-8.6 10 ^3/uL Lymphocytes # (Auto) 0.8 0.9 0.4-5.4 10 ^3/uL Monocytes # (Auto) 0.6 0.5 0-1.3 10 ^3/uL Eosinophils # (Auto) 0.2 0.1 0-0.8 10 ^3/uL Basophils # (Auto) 0 0 0-0.2 10 ^3/uL Nucleated Red Blood Cells 0.1 0.1 % Sodium Level 135 #L 130 L 136-145 mmol/L Potassium Level 3.9 3.9 3.5-5.1 mmol/L Chloride Level 100 101 98-107 mmol/L Carbon Dioxide Level 26 21 20-31 mmol/L Anion Gap 9 8 5-15 Blood Urea Nitrogen 10 < 5 L 9-23 mg/dL Creatinine 1.06 0.68 L 0.700-1.30 mg/dL Glomerular Filtration Rate Calc 84 111 >90 mL/min BUN/Creatinine Ratio 9.4 L 7.4 L 10.0-20.0 Serum Glucose 92 108 H 74-106 mg/dL Calcium Level 8.1 L 8.3 L 8.7-10.4 mg/dL Total Bilirubin 4.3 H 3.8 H 0.2-1.0 mg/dL Aspartate Amino Transferase (AST) 66 H 97 H 13-40 U/L Alanine Aminotransferase (ALT) 28 37 7-40 U/L Alkaline Phosphatase 101 126 H 46-116 U/L Total Protein 5.8 7.4 5.7-8.2 g/dL Albumin 2.2 L 2.8 L 3.2-4.8 g/dL Urine Color Light-yellow Yellow Urine Clarity Clear Clear Urine pH 6.5 5.0-9.0 Urine Specific [place] 1.005 1.001-1.035 Urine Protein Negative Negative Urine Ketones Negative Negative Urine Blood Negative Negative /uL Urine Nitrite Negative Negative Urine Bilirubin Negative Negative Urine Urobilinogen Normal Negative mg/dL Urine Leukocyte Esterase Negative Negative /uL Urine RBC 4 0 - 3 /hpf Urine Microscopic WBC < 1 0-3 /HPF Urine Squamous Epithelial Cells None seen <5 /hpf Urine Bacteria None seen None Seen /hpf Urine Glucose Normal Normal mg/dL Urine Opiates Screen Neg NEGATIVE Urine Fentanyl Screen Neg NEGATIVE Urine Barbiturates Screen Neg NEGATIVE Urine Phencyclidine Screen Neg NEGATIVE Urine Amphetamines Screen Neg NEGATIVE Urine Benzodiazepines Screen Neg NEGATIVE Urine Cocaine Screen Neg NEGATIVE Urine Cannabinoids Screen Neg NEGATIVE Prothrombin Time 12.8 H 9.3-11.8 sec Prothrombin Time INR 1.23 H 0.9-1.15 Lactic Acid Level 1.9 0.4-2.0 mmol/L Magnesium Level 1.6 1.6-2.6 mg/dL Lipase 43 12-53 U/L Plasma/Serum Blood Alcohol 103.1 H <10 mg/dL Hepatitis A IgM Antibody Negative Hepatitis B Surface Antigen Negative Negative Hepatitis B Core IgM Antibody Negative Negative Hepatitis C Antibody Negative Negative Microbiology Date/Time Source Procedure Growth Status 02/18/25 20:55 Nose MRSA Screen - Final Complete 02/18/25 20:37 Voided Urine Urine Culture - Final Pseudomonas aeruginosa Complete Assessment Liver cirrhosis with ascites Hyponatremia Thrombocytopenia Hyperbilirubinemia Hypoalbuminemia ETOH abuse Obesity Plan/Recommendation Agreement with your ongoing assessment and plan of care. S/p paracentesis. Diuretics with Bumex BID. Monitor daily labs; electrolyte replacement prn. Pain management prn. Additional plan as per the hospital course. Plan discussed with: Patient, Other (RN) GIACOMO VALENCIA DO Feb 21, 2025 20:37
--- NOTE | 2025-02-21 20:37 | DVHPN2 ---
Progress Note - Dictate Date Seen: Feb 21, 2025 Has the PT tested + for MRSA If YES, has PT been informed?: No Medical Necessity Reason Pt with a Central, PICC or Fol: No Subjective Patient was seen and evaluated in follow up. No acute events overnight. Patient denies any complaints. Reports feeling better. vital signs Vital Sign Date Time Temp Pulse Resp B/P (MAP) Pulse Ox O2 Delivery O2 Flow Rate FiO2 02/21/25 12:52 36.6 79 02/21/25 12:50 16 101/63 (76) 97 02/21/25 08:04 Room Air* 0 21 Total Intake and Output 02/20/25 02/20/25 02/21/25 15:00 23:00 07:00 Intake Total 100 ml 900 ml Output Total 1050 ml 1150 ml Balance -950 ml 900 ml -1150 ml objective Vitals and nursing notes reviewed. General Appearance: In no acute distress. HEENT: Atraumatic, PERRLA, EOMI, Mucous membr. moist/pink Respiratory: Normal air movement Cardiovascular: Normal S1, Normal S2 Abdominal: Soft, Nontender, nondistended Extremities: Normal pulses Skin: No significant lesion Neuro: Alert, Oriented X3, Normal speech, Strength at 5/5 X4 ext, Normal tone, Sensation intact Psych/Mental Status: Mental status NL, Mood NL laboratory and microbiology Laboratory Tests 02/19/25 07:40 Test 02/19/25 07:40 Range/Units Serum Glucose 92 74-106 mg/dL Problem List Liver cirrhosis with ascites Hyponatremia Thrombocytopenia Hyperbilirubinemia Hypoalbuminemia ETOH abuse Obesity Assessment/Plan DC planning in progress. Cleared for discharge from Nephrology standpoint. Plan discussed with: Patient, Other (RN) GIACOMO VALENCIA DO Feb 21, 2025 20:37
== END 2025-02-21 15:00 | disposition home or self-care (01) | DRG 280 ==
LOC: ER 05:38 → OVERFLOW 07:03 → TELE-WESTW 17:57
PROVIDERS: ADMIT Internal Medicine; ATTEND Internal Medicine
PROC: 0W9G3ZZ Drainage of Peritoneal Cavity, Percutaneous Approach (ICD-10-PCS; principal; 2025-02-18)
DX: K70.31 Alcoholic cirrhosis of liver with ascites (principal); K65.2 Spontaneous bacterial peritonitis; D69.6 Thrombocytopenia, unspecified; E87.1 Hypo-osmolality and hyponatremia; E88.09 Other disorders of plasma-protein metabolism, not elsewhere classified; R65.10 Systemic inflammatory response syndrome (SIRS) of non-infectious origin without acute organ dysfunction; F10.20 Alcohol dependence, uncomplicated; K42.9 Umbilical hernia without obstruction or gangrene; K80.20 Calculus of gallbladder without cholecystitis without obstruction; E66.9 Obesity, unspecified; Z68.30 Body mass index [BMI] 30.0-30.9, adult; E87.70 Fluid overload, unspecified; F32.A Depression, unspecified; F41.9 Anxiety disorder, unspecified; I10 Essential (primary) hypertension; I16.0 Hypertensive urgency; Z80.9 Family history of malignant neoplasm, unspecified; Z82.0 Family history of epilepsy and other diseases of the nervous system; Z82.49 Family history of ischemic heart disease and other diseases of the circulatory system; Z83.3 Family history of diabetes mellitus; Z87.442 Personal history of urinary calculi
CPT/HCPCS: 36415; 49083; 74176; 76942; 80053; 80074; 80307; 80320; 81001; 83605; 83690; 83735; 85025; 85610; 87040; 87081; 87086; 87088; 87186; 99291; G0378; J2543

== ENCOUNTER 2025-03-10 08:05 | Inpatient (IN) | payer MEDICAID ==
[~2025-03-10] VITALS: Ht 167.6 cm; Wt 79.9 kg
[2025-03-10 09:40] LABS: Urine Bacteria None Seen /hpf (None Seen)
--- NOTE | 2025-03-10 09:44 | ED.PDOC ---
GI ASSESSMENT HPI Comments 54 year old male presents to the ED with chief complaint of abdominal distention. Patient reports that he has liver cirrhosis and has been experiencing abdominal distention and mild pain, needing a paracentesis to be performed. Patient relays that he had his abdomen drained 2-3 weeks ago in [facility]. Patient notes he has an appointment with his liver specialist in 2 weeks. Patient denies any N/V/D, dizziness, fever, chills, or chest pain. Chief Complaint: Abdominal Pain Time Seen by MD: 09:38 Primary Care Provider: UNKNOWN Reviewed Notes: Nurses Notes, Medications, Allergies Allergies: Coded Allergies: NO KNOWN ALLERGIES (Unverified , 03/12/20) Home Meds Active Scripts Bumetanide (Bumetanide) 1 Mg Tab, 1 TAB PO BID for 30 Days, #60 TAB 3 Refills Prov:KAYLAN MELVIN DO 02/21/25 Magnesium Oxide (MAGNESIUM OXIDE) 400 Mg Tab, 400 MG OR DAILY for 30 Days, #30 TAB Prov:PORSCHE CROWE RESIDENT 07/31/24 Potassium Chloride (Potassium Chloride ER) 20 Meq Tab, 20 MEQ PO DAILY for 30 Days, #30 TAB Prov:PORSCHE CROWE RESIDENT 07/31/24 Multiple Vitamin (Multivitamins) Tab, 1 TAB PO DAILY for 90 Days, #90 TAB 0 Refills Prov:ANUJ MULLIGAN ENTRY LEVEL SOFTWARE ENGINEER 04/06/24 Sucralfate (CARAFATE) 1 Gm Tab, 1 GM OR QID for 30 Days, #120 TAB Prov:ANUJ MULLIGAN EN[employer] LEVEL SOFTWARE ENGINEER 04/06/24 Lisinopril (Lisinopril) 20 Mg Tab, 1 TAB PO DAILYPRN for 60 Days, #60 TAB Prov:ANUJ MULLIGAN EN[employer] LEVEL SOFTWARE ENGINEER 04/06/24 Propranolol HCl (Propranolol Hydrochloride) 20 Mg Tab, 1 TAB PO BID for 60 Days, #120 TAB Prov:ANUJ MULLIGAN ENTRY LEVEL SOFTWARE ENGINEER 04/06/24 Reported Medications Furosemide (Furosemide) 40 Mg Tab, 1 TAB PO DAILY for 14 Days, #14 02/03/25 Cholecalciferol (VITAMIN D3) 2,000 Unit Tab, 1 TAB PO DAILY for 90 Days, #90 02/03/25 Spironolactone (Spironolactone) 25 Mg Tab, 1 TAB PO DAILY for 30 Days, #30 02/03/25 Pantoprazole Sodium Sesquihydr (Protonix) 40 Mg Tab, 1 TAB PO BID for 30 Days, #60 02/02/25 Lactulose (Lactulose) 10 Gm/15 Ml [place], ML PO 11/25/24 Acamprosate Calcium (ACAMPROSATE CALCIUM DR) 333 Mg Tab, 333 MG PO QID, TAB 07/31/24 Folic Acid (Folic Acid) 1 Mg Tab, 1 MG PO DAILY, TAB 07/31/24 Thiamine Hcl (VITAMIN B-1) 100 Mg Tb, 1 TAB PO DAILY for 30 Days, #30 07/31/24 Information Source: Patient Mode of Arrival: Ambulatory Timing: Days Duration: Since onset Prehospital treatment: None Quality: Aching Vomitus: None Stool: Normal Severity: Moderate Recent: None Recent Hx of: Liver Disease Pain Location: Diffuse Associated sign and symptoms: Abdominal Pain Past Medical History PAST MEDICAL HISTORY: Anxiety, Depression, HTN, Kidney Stones, Liver Surgical History: Hernia Repair Family History Family History: Reviewed,noncontributory to illness, Family hx of Cancer Social History Smoker: Non-Smoker Alcohol: Heavy Drugs: Denies Drug Use Lives In: Home Constitutional: denies: chills, diaphoresis, fatigue, fever, malaise, sweats, weakness, others EENTM: denies: blurred vision, double vision, ear bleeding, ear discharge, ear drainage, ear pain, ear ringing, eye pain, eye redness, hearing loss, mouth pain, mouth swelling, nasal discharge, nose bleeding, nose congestion, nose pain, photophobia, tearing, throat pain, throat swelling, voice changes, others Respiratory: denies: cough, hemoptysis, orthopnea, SOB at rest, shortness of breath, SOB with excertion, stridor, wheezing, others Cardiovascular: denies: chest pain, dizzy spells, diaphoresis, Dyspnea on exertion, edema, irregular heart beat, left arm pain, lightheadedness, palpitations, PND, syncope, others Gastrointestinal: reports: abdomen distended, abdominal pain; denies: blood streaked bowels, constipated, diarrhea, dysphagia, difficulty swallowing, hematemesis, melena, nausea, poor appetite, poor fluid intake, rectal bleeding, rectal pain, vomiting, others Genitourinary: denies: burning, dysuria, flank pain, frequency, hematuria, incontinence, penile discharge, penile sore, pain, testicle pain, testicle swell ing, urgency, others Neurological: denies: dizziness, fainting, headache, left sided numbness, left sided weakness, numbness, paresthesia, pre-existing deficit, right sided numbness, right sided weakness, seizure, speech problems, tingling, tremors, weakness, others Musculoskeletal: denies: back pain, gout, joint pain, joint swelling, muscle pain, muscle stiffness, neck pain, others Integumetry: denies: bruises, change in color, change in hair/nails, dryness, laceration, lesions, lumps, rash, wounds, others Allergic/Immunocompromised: denies: Difficulty Healing, Frequent Infections, Hives, Itching, others Hematologic/Lymphatic: denies: anemia, blood clots, easy bleeding, easy bruising, swollen glands, others Endocrine: denies: excessive hunger, excessive sweating, excessive thirst, excessive urination, flushing, intolerance to cold, intolerance to heat, unexplained weight gain, unexplained weight loss, others Psychiatric: denies: anxiety, bipolar disorder, depression, hopeless, panic disorder, schizophrenia, sleepless, suicidal, others All Other Systems: Reviewed and Negative Physical Exam General Appearance: No Apparent Distress, Normal HEENT: Normal ENT Inspection, Pharynx Normal, TMs Normal Neck: Full Range of Motion, Non-Tender, Normal, Normal Inspection Respiratory: Chest Non-Tender, Lungs Clear, No Accessory Muscle Use, No Respiratory Distress, Normal Breath Sounds Cardiovascular: No Edema, No JVD, No Murmur, No Gallop, Normal Peripheral Pulses, Regular Rate/Rhythm Breast Exam: Deferred Gastrointestinal: Distended, No Organomegaly, Non Tender, No Pulsatile Mass, Normal Bowel Sounds Genitalia: Deferred Pelvic: Deferred Rectal: Deferred Extremities: No calf tenderness, Normal capillary refill, Normal inspection, Normal range of motion, Non-tender, No pedal edema Musculoskeletal : Apperance: Normal Neurologic: Alert, electrotyper apprentice II-XII nml as Tested, No Motor Deficits, Normal Affect, Normal Mood, No Sensory Deficits Cerebellar Function: Normal Reflexes: Normal Skin: Dry, Normal Color, Warm Lymphatic: No Adenopathy Was a procedure done? Was a procedure done?: No GI differential Dx Differential Diagnosis: Gastritis/PUD, Gastroenteritis, Electrolyte Imbalance, Other (Worsening cirrhosis, SBP) X-Ray, Labs, Meds, VS Vital Signs Date Time Temp Pulse Resp B/P (MAP) Pulse Ox O2 Delivery O2 Flow Rate FiO2 03/10/25 08:23 98.6 84 16 128/82 (97) 98 98.6 Lab Test 03/10/25 09:42 03/10/25 08:42 Range/Units White Blood Count 5.2 4.4-10.8 10^3/uL Red Blood Count 3.74 L 4.5-5.90 10^6/uL Hemoglobin 13.7 13.5-17.5 g/dL Hematocrit 38.1 L 41.0-53.0 % Mean Corpuscular Volume 101.8 H 80.0-100.0 fL Mean Corpuscular Hemoglobin 36.6 H 28.0-32.0 pg Mean Corpuscular Hemoglobin Concent 36.0 32.0-36.0 g/dL Red Cell Distribution Width 13.6 11.8-14.3 % Platelet Count 170 140-450 10^3/uL Mean Platelet Volume 6.7 L 6.9-10.8 fL Neutrophils (%) (Auto) 60.0 37.0-80.0 % Lymphocytes (%) (Auto) 19.1 10.0-50.0 % Monocytes (%) (Auto) 17.9 H 0.0-12.0 % Eosinophils (%) (Auto) 2.4 0.0-7.0 % Basophils (%) (Auto) 0.6 0.0-2.0 % Neutrophils # (Auto) 3.1 1.6-8.6 10 ^3/uL Lymphocytes # (Auto) 1.0 0.4-5.4 10 ^3/uL Monocytes # (Auto) 0.9 0-1.3 10 ^3/uL Eosinophils # (Auto) 0.1 0-0.8 10 ^3/uL Basophils # (Auto) 0 0-0.2 10 ^3/uL Nucleated Red Blood Cells 0.2 % Prothrombin Time 13.1 H 9.3-11.8 sec Prothrombin Time INR 1.26 H 0.9-1.15 Activated Partial Thromboplast Time 28.0 24.5-34.5 SEC Sodium Level 135 L 136-145 mmol/L Potassium Level 3.5 3.5-5.1 mmol/L Chloride Level 101 98-107 mmol/L Carbon Dioxide Level 26 20-31 mmol/L Anion Gap 8 5-15 Blood Urea Nitrogen 8 L 9-23 mg/dL Creatinine 0.90 0.700-1.30 mg/dL Glomerular Filtration Rate Calc 102 >90 mL/min BUN/Creatinine Ratio 8.9 L 10.0-20.0 Serum Glucose 99 74-106 mg/dL Calcium Level 8.5 L 8.7-10.4 mg/dL Total Bilirubin 3.9 H 0.2-1.0 mg/dL Aspartate Amino Transferase (AST) 54 H 13-40 U/L Alanine Aminotransferase (ALT) 17 7-40 U/L Alkaline Phosphatase 95 46-116 U/L Total Protein 6.9 5.7-8.2 g/dL Albumin 2.7 L 3.2-4.8 g/dL Urine Color Light-yellow Yellow Urine Clarity Clear Clear Urine pH 6.0 5.0-9.0 Urine Specific [place] 1.003 1.001-1.035 Urine Protein Negative Negative Urine Ketones Negative Negative Urine Blood 1+ H Negative /uL Urine Nitrite Negative Negative Urine Bilirubin Negative Negative Urine Urobilinogen Normal Negative mg/dL Urine Leukocyte Esterase Negative Negative /uL Urine RBC 1 0 - 3 /hpf Urine Microscopic WBC < 1 0-3 /HPF Urine Squamous Epithelial Cells None seen <5 /hpf Urine Bacteria None seen None Seen /hpf Urine Glucose Normal Normal mg/dL Time of 1ST Reevaluation: 10:38 Reevaluation 1ST: Unchanged Patient Education/Counseling: Diagnosis, Treatment Family Education/Counseling: No Family Present Additional Information The following tests were ordered, and results were reviewed by me: CMP, CBC, PTPTT Additional Information was gathered from interviewing the following independent historians: None I reviewed and agreed with the following test results read by other providers: None I discussed treatment and results with medical personnel and: patient Comprehensive systems review obtained and negative except for what is stated in the HPI. Departure 1 Departure Time of Disposition: 10:52 (Patient with a worsening shortness of breath and abdominal pain likely secondary to cirrhosis and volume overload. We will admit patient for further workup and expert consultation) Impression: Primary Impression: Shortness of breath Additional Impressions: Intractable abdominal pain Cirrhosis of liver Qualified Codes: K74.60 - Unspecified cirrhosis of liver; R18.8 - Other ascites Disposition: 09 ADMITTED INPATIENT Admit to: Med Surg Condition: Serious Critical Care Note Critical Care Time?: Yes Critical care comment: Acute shortness of breath Authorized and Performed by: Dm Cherry MD Total critical care time: Approximately 39 minutes Due to a high probability of clinically significant, life threatening deterioration, the patient required my highest level of preparedness to intervene emergently and I personally spent this critical care time directly and personally managing the patient. This critical care time included obtaining a history; examining the patient; pulse oximetry; ordering and review of studies; arranging urgent treatment with development of a management plan; evaluation of patient's response to treatment; frequent reassessment; and, discussions with other providers. This critical care time was performed to assess and manage the high probability of imminent, life-threatening deterioration that could result in multi-organ failure. It was exclusive of separately billable procedures and treating other patients and teaching time. Please see my other sections and the rest of the note for further information on patient assessment and treatment. Stability Stability form required: No Heart Score Heart Score: Heart Score Response (Comments) Value History N/A 0 EKG N/A 0 Age N/A 0 Risk Factors N/A 0 Troponin N/A 0 Total 0 I personally scribed for DM CEHRRY MD ([email or web address]) on 03/10/25 at 09:44. Electronically submitted by Raj Fuentes ([email or web address]). DM CHERRY MD March 10, 2025 09:44
[2025-03-10 09:55] LABS: Urine Blood 1+ /uL (Negative); Urine Clarity Clear (Clear); Urine Color Light-Yellow (Yellow); Urine Protein, UAD Negative (Negative); Urine Specific Gravity 1.003 (1.001-1.035); Urine Squamous Epithelial Cell None Seen /hpf (<5); Urine Urobilinogen Normal (Negative); Urine WBC < 1 /HPF (0-3)
[2025-03-10 10:09] LABS: INR 1.26 (0.9-1.15); Prothrombin Time 13.1 sec (9.3-11.8)
[2025-03-10 10:10] LABS: Alanine Aminotransferase 17 U/L (7-40); Alkaline Phosphatase 95 U/L (46-116); Anion Gap 8 (5-15); BUN/Creatinine Ratio 8.9 (10.0-20.0); Carbon Dioxide 26 mmol/L (20-31); Chloride 101 mmol/L (98-107); Glucose 99 mg/dL (74-106); Total Protein 6.9 g/dL (5.7-8.2)
[2025-03-10 10:12] LABS: Albumin 2.7 g/dL (3.2-4.8); Aspartate Aminotransferase 54 U/L (13-40); Bilirubin, Total 3.9 mg/dL (0.2-1.0); Blood Urea Nitrogen 8 mg/dL (9-23); Calcium 8.5 mg/dL (8.7-10.4); Potassium 3.5 mmol/L (3.5-5.1); Sodium 135 mmol/L (136-145)
[2025-03-10 10:17] LABS: Basophils # (auto) 0 10 ^3/uL (0-0.2); Basophils % (auto) 0.6 % (0.0-2.0); Eosinophils # (auto) 0.1 10 ^3/uL (0-0.8); Eosinophils % (auto) 2.4 % (0.0-7.0); Hematocrit 38.1 % (41.0-53.0); Hemoglobin 13.7 g/dL (13.5-17.5); Lymphocytes % (auto) 19.1 % (10.0-50.0); Mean Corpuscular Hemoglobin 36.6 pg (28.0-32.0); Mean Corpuscular Volume 101.8 fL (80.0-100.0); Monocytes # (auto) 0.9 10 ^3/uL (0-1.3); Monocytes % (auto) 17.9 % (0.0-12.0); Neutrophils # (auto) 3.1 10 ^3/uL (1.6-8.6); Nucleated Red Blood Cells % 0.2 %; Platelet Count (auto) 170 10^3/uL (140-450); Red Blood Cells 3.74 10^6/uL (4.5-5.90); Red Cell Distribution Width 13.6 % (11.8-14.3); White Blood Cell 5.2 10^3/uL (4.4-10.8)
[2025-03-10] MEDS: ONDANSETRON HCL 4 MG/2 ML VIAL IV ONE (11:54)
[2025-03-10] MEDS: MORPHINE SULFATE 4 MG/ML SYR/VIAL IV ONE (11:56)
[2025-03-10] MEDS: FUROSEMIDE 40 MG/4 ML VIAL IV ONE (11:57)
[2025-03-10] MEDS ORDERED: HYDROcodone-ACET 5/325MG TAB PO PRN (12:45)
[2025-03-10] MEDS ORDERED: DOCUSATE SOD 100 MG CAP PO PRN (12:45)
[2025-03-10] MEDS ORDERED: ONDANSETRON HCL 4 MG/2 ML VIAL IV PRN (12:45)
[2025-03-10] MEDS ORDERED: ACETAMINOPHEN 325 MG TAB PO PRN (12:45)
--- NOTE | 2025-03-10 12:59 | DVHHP2 ---
History of Present Illness Reason for Visit: Abdominal pain History of Present Illness Yang Martin is a 54-year-old male with past medical history of ETOH dependance, liver cirrhosis, GERD, and hypertension, who came in for abdominal pain. Patient came in due to needing a paracentesis. He was last seen here about 3 weeks ago and had about 11L taken off. He has since been following with his primary care provider as an outpatient working to get approval for scheduled outpatient paracentesis completed. He has a referral and appointment to see GI, but has not seen them to establish care yet. He was told it could take up to 1 month for everything to be finalized and get his paracenteses scheduled. Cardiovascular: HTN GI: GERD Hepatobiliary: Cirrhosis Past Surgical History: Hernia Repair Smoke: No ALCOHOL: heavy Drugs: None Lives: Alone Domestic Violence: Neg Review of Systems Constitutional: No: Fever, Chills, Sweats, Weakness, Malaise, Other Eyes: No: Pain, Vision change, Conjunctivae inflammation, Eyelid inflammation, Other, Redness ENT: No: Ear pain, Ear discharge, Nose pain, Nose discharge, Nose congestion, Mouth pain, Mouth swelling, Throat pain, Throat swelling, Other Respiratory: SOB with excertion; No: Cough, Dry, Shortness of breath, Wheezing, Hemoptysis, Pleuritic Pain, Sputum, Wheezing, Other Cardiovascular: No: Chest Pain, Palpitations, Orthopnea, Paroxysmal Noc. Dyspnea, Edema, Lt Headedness, Other Gastrointestinal: Abdominal Pain; No: Nausea, Vomiting, Diarrhea, Constipation, Melena, Hematochezia, Other Genitourinary: No Dysuria, No Frequency, No Incontinence, No Hematuria, No Retention, No Other Musculoskeletal: No: other, neck pain, shoulder pain, arm pain, back pain, hand pain, leg pain, foot pain Skin: No: Rash, Lesions, Jaundice, Bruising, Other Neurological: No: Weakness, Numbness, Incoordination, Change in speech, Confusion, Seizures, Other Allergies: Coded Allergies: NO KNOWN ALLERGIES (Unverified , 03/12/20) Exam Vital Signs Vital Signs Date Time Temp Pulse Resp B/P (MAP) Pulse Ox O2 Delivery O2 Flow Rate FiO2 03/10/25 12:12 98.2 79 16 131/79 (96) 100 98.2 03/10/25 12:09 Room Air* 0 21 General Appearance: Alert, Oriented X3, Cooperative, moderate distress HEENT: Atraumatic, PERRLA Respiratory: Clear to auscultation, Normal air movement Cardiovascular: Regular rate, Normal S1, Normal S2 Abdominal: Other (abdomen is firm, distended) Extremities: No clubbing, No cyanosis, Normal pulses Skin: No rashes, No breakdown, No significant lesion Neuro: Normal gait, Normal speech, Strength at 5/5 X4 ext, Normal tone Psych/Mental Status: Mental status NL, Mood NL Labs/Xrays Labs Test 03/10/25 09:42 03/10/25 08:42 Range/Units White Blood Count 5.2 4.4-10.8 10^3/uL Red Blood Count 3.74 L 4.5-5.90 10^6/uL Hemoglobin 13.7 13.5-17.5 g/dL Hematocrit 38.1 L 41.0-53.0 % Mean Corpuscular Volume 101.8 H 80.0-100.0 fL Mean Corpuscular Hemoglobin 36.6 H 28.0-32.0 pg Mean Corpuscular Hemoglobin Concent 36.0 32.0-36.0 g/dL Red Cell Distribution Width 13.6 11.8-14.3 % Platelet Count 170 140-450 10^3/uL Mean Platelet Volume 6.7 L 6.9-10.8 fL Neutrophils (%) (Auto) 60.0 37.0-80.0 % Lymphocytes (%) (Auto) 19.1 10.0-50.0 % Monocytes (%) (Auto) 17.9 H 0.0-12.0 % Eosinophils (%) (Auto) 2.4 0.0-7.0 % Basophils (%) (Auto) 0.6 0.0-2.0 % Neutrophils # (Auto) 3.1 1.6-8.6 10 ^3/uL Lymphocytes # (Auto) 1.0 0.4-5.4 10 ^3/uL Monocytes # (Auto) 0.9 0-1.3 10 ^3/uL Eosinophils # (Auto) 0.1 0-0.8 10 ^3/uL Basophils # (Auto) 0 0-0.2 10 ^3/uL Nucleated Red Blood Cells 0.2 % Prothrombin Time 13.1 H 9.3-11.8 sec Prothrombin Time INR 1.26 H 0.9-1.15 Activated Partial Thromboplast Time 28.0 24.5-34.5 SEC Sodium Level 135 L 136-145 mmol/L Potassium Level 3.5 3.5-5.1 mmol/L Chloride Level 101 98-107 mmol/L Carbon Dioxide Level 26 20-31 mmol/L Anion Gap 8 5-15 Blood Urea Nitrogen 8 L 9-23 mg/dL Creatinine 0.90 0.700-1.30 mg/dL Glomerular Filtration Rate Calc 102 >90 mL/min BUN/Creatinine Ratio 8.9 L 10.0-20.0 Serum Glucose 99 74-106 mg/dL Calcium Level 8.5 L 8.7-10.4 mg/dL Total Bilirubin 3.9 H 0.2-1.0 mg/dL Aspartate Amino Transferase (AST) 54 H 13-40 U/L Alanine Aminotransferase (ALT) 17 7-40 U/L Alkaline Phosphatase 95 46-116 U/L Total Protein 6.9 5.7-8.2 g/dL Albumin 2.7 L 3.2-4.8 g/dL Urine Color Light-yellow Yellow Urine Clarity Clear Clear Urine pH 6.0 5.0-9.0 Urine Specific [place] 1.003 1.001-1.035 Urine Protein Negative Negative Urine Ketones Negative Negative Urine Blood 1+ H Negative /uL Urine Nitrite Negative Negative Urine Bilirubin Negative Negative Urine Urobilinogen Normal Negative mg/dL Urine Leukocyte Esterase Negative Negative /uL Urine RBC 1 0 - 3 /hpf Urine Microscopic WBC < 1 0-3 /HPF Urine Squamous Epithelial Cells None seen <5 /hpf Urine Bacteria None seen None Seen /hpf Urine Glucose Normal Normal mg/dL Assessment/Plan Assessment/Plan Assessment: Cirrhosis of liver, GERD, Hypertension, Plan: Admit to Med-Surg, IR consult for paracentesis, PT/PTT, Ammonia level in am, Pain management, Supplemental oxygen as needed, Home medications reconciled, Plan discussed with: Patient My Orders Orders - JEFFERY HINOJOSA Procedure Category Date Status Time Admit ADMIT 03/10/25 Verified 12:43 Code Status CODE 03/10/25 Verified 12:43 Sodium Chloride Lock PHA 03/10/25 Verified (Saline Lock Ns) 14:00 Hydrocodone-Acet PHA 03/10/25 Verified 5/325mg Tab ([place] 12:45 Ondansetron Hcl PHA 03/10/25 Verified (Zofran) 12:45 Docusate Sodium PHA 03/10/25 Verified Capsule (Colace 12:45 Complete Blood Count LAB 03/11/25 Verified 04:00 Comprehensive LAB 03/11/25 Verified Metabolic Panel 04:00 Condition: Serious JOSE 03/10/25 Verified 12:43 Acetaminophen Tablet PHA 03/10/25 Verified (Tylenol Tablet) 12:45 Ammonia LAB 03/11/25 Verified 04:00 Bumetanide Tablet PHA 03/10/25 Verified (Bumex Tablet) 22:00 Pantoprazole Tablet PHA 03/10/25 Verified (Protonix Tablet) 22:00 Propranolol Hcl PHA 03/10/25 Verified Tablet (Inderal 22:00 Thiamine Tab PHA 03/11/25 Verified 10:00 (Nf) Cholecalciferol PHA 03/11/25 Verified (Vitamin D3) 10:00 (Nf) Folic Acid PHA 03/11/25 Verified 10:00 Maintain Fluid JOSE 03/10/25 Verified Restrictions 12:43 Date of Service: March 10, 2025 Billing Provider: JEFFERY HINOJOSA Common Visit Codes: [id number] INP/OBS CARE (MOD) JEFFERY HINOJOSA March 10, 2025 12:59
--- NOTE | 2025-03-10 13:29 | DVH ---
PROCEDURE: ULTRASOUND GUIDED PARACENTESIS HISTORY: 54 Male requiring paracentesis. TECHNIQUE: The risks and benefits of the procedure including but not limited to bleeding, infection and injury t o abdominal organs were explained to the patient and written informed consent was obtained. Optimal site for puncture was determined using ultrasound and the area sterilized and draped. Using a 5 [place] DotAligneh catheter, paracentesis was performed in the right lower abdomen. Approximately 13.5 liters of straw colored fluid was removed. The patient tolerated the procedure well. There were no immediate complications. IMPRESSION: Ultrasound-guided paracentesis with no immediate complications.
[2025-03-10] MEDS: SODIUM CHLOR 0.9% PF (SALINE LOCK) 10ML VIAL/SYR IV SCH (14:53)
--- NOTE | 2025-03-10 15:18 | ED.PDOC ---
Was a procedure done? Was a procedure done?: Yes Sedation Sedation?: No Other Procedure Procedure US Guided Paracentesis Indication Ascites Anesthetic Lidocaine 1% Prep Chlorhexadine Success Yes. Removed 13.5L Informed consent obtained: Yes Risks, benefits, and alternati: Yes DM CHERRY MD March 10, 2025 15:18
[2025-03-10 15:36] LABS: Body Fluid Red Blood Cells 376 CUMM (0-2000); Body Fluid White Blood Cells 125 CUMM (0-200)
[2025-03-10] MEDS: ALBUMIN 5% 250 ML IV ONE (15:40)
[2025-03-10] MEDS: BUMETANIDE 1 MG TAB PO SCH (18:00)
[2025-03-10 18:30] VITALS: BP 101/47; PULSE 84; TEMP 98.4; O2SAT 100
[2025-03-10 21:00] VITALS: BP 102/63; PULSE 86; RESP 16; TEMP 97.8; O2SAT 98
[2025-03-10] MEDS: PANTOPRAZOLE 40 MG TAB PO SCH (22:11)
[2025-03-10] MEDS: PROPRANOLOL HCL 20 MG TAB PO SCH (22:12)
[2025-03-11 01:00] VITALS: BP 103/61; PULSE 80; RESP 18; TEMP 98.1; O2SAT 98
[2025-03-11 05:00] VITALS: BP 103/63; PULSE 77; RESP 18; TEMP 98.2; O2SAT 99
[2025-03-11 06:56] LABS: Alanine Aminotransferase 17 U/L (7-40); Alkaline Phosphatase 69 U/L (46-116); Anion Gap 8 (5-15); Aspartate Aminotransferase 38 U/L (13-40); BUN/Creatinine Ratio 13.4 (10.0-20.0); Blood Urea Nitrogen 11 mg/dL (9-23); Carbon Dioxide 27 mmol/L (20-31); Chloride 102 mmol/L (98-107); Glucose 99 mg/dL (74-106); Sodium 137 mmol/L (136-145)
[2025-03-11 07:02] LABS: Albumin 2.1 g/dL (3.2-4.8); Bilirubin, Total 2.5 mg/dL (0.2-1.0); Calcium 7.7 mg/dL (8.7-10.4); Potassium 3.1 mmol/L (3.5-5.1); Total Protein 5.2 g/dL (5.7-8.2)
[2025-03-11 07:50] LABS: Basophils # (auto) 0 10 ^3/uL (0-0.2); Basophils % (auto) 0.5 % (0.0-2.0); Eosinophils # (auto) 0.1 10 ^3/uL (0-0.8); Eosinophils % (auto) 3.5 % (0.0-7.0); Hematocrit 35.4 % (41.0-53.0); Hemoglobin 12.8 g/dL (13.5-17.5); Lymphocytes # (auto) 0.9 10 ^3/uL (0.4-5.4); Lymphocytes % (auto) 23.8 % (10.0-50.0); Mean Corpuscular Hemoglobin 36.6 pg (28.0-32.0); Mean Corpuscular Hgb Conc. 36.2 g/dL (32.0-36.0); Mean Corpuscular Volume 101.3 fL (80.0-100.0); Monocytes # (auto) 0.6 10 ^3/uL (0-1.3); Monocytes % (auto) 16.7 % (0.0-12.0); Neutrophils # (auto) 2.1 10 ^3/uL (1.6-8.6); Neutrophils % (auto) 55.5 % (37.0-80.0); Nucleated Red Blood Cells % 0.1 %; Platelet Count (auto) 132 10^3/uL (140-450); Red Cell Distribution Width 14.1 % (11.8-14.3); White Blood Cell 3.8 10^3/uL (4.4-10.8)
[2025-03-11 09:00] VITALS: BP 99/59; PULSE 74; RESP 16; TEMP 97.7; O2SAT 99
[2025-03-11] MEDS: CHOLECALCIFEROL (VITD3) 1,000UNIT=25mCg TAB PO SCH (09:57)
[2025-03-11] MEDS: FOLIC ACID 1 MG TAB PO SCH (09:58)
[2025-03-11] MEDS: THIAMINE HCL 100 MG TAB PO SCH (09:58)
--- NOTE | 2025-03-11 11:13 | DVHDS2 ---
Discharge Summary Date of Admission March 10, 2025 at 12:43 Date of Discharge: March 11, 2025 Admitting Diagnosis Cirrhosis of liver, GERD, Hypertension, Labs/Diagnostic Data: Laboratory Results Test 03/11/25 05:51 03/10/25 14:05 03/10/25 09:42 03/10/25 08:42 White Blood Count 3.8 10^3/uL (4.4-10.8) Red Blood Count 3.50 10^6/uL (4.5-5.90) Hemoglobin 12.8 g/dL (13.5-17.5) Hematocrit 35.4 % (41.0-53.0) Mean Corpuscular Volume 101.3 fL (80.0-100.0) Mean Corpuscular Hemoglobin 36.6 pg (28.0-32.0) Mean Corpuscular Hemoglobin Concent 36.2 g/dL (32.0-36.0) Red Cell Distribution Width 14.1 % (11.8-14.3) Platelet Count 132 10^3/uL (140-450) Mean Platelet Volume 7.2 fL (6.9-10.8) Neutrophils (%) (Auto) 55.5 % (37.0-80.0) Lymphocytes (%) (Auto) 23.8 % (10.0-50.0) Monocytes (%) (Auto) 16.7 % (0.0-12.0) Eosinophils (%) (Auto) 3.5 % (0.0-7.0) Basophils (%) (Auto) 0.5 % (0.0-2.0) Neutrophils # (Auto) 2.1 10 ^3/uL (1.6-8.6) Lymphocytes # (Auto) 0.9 10 ^3/uL (0.4-5.4) Monocytes # (Auto) 0.6 10 ^3/uL (0-1.3) Eosinophils # (Auto) 0.1 10 ^3/uL (0-0.8) Basophils # (Auto) 0 10 ^3/uL (0-0.2) Nucleated Red Blood Cells 0.1 % Sodium Level 137 mmol/L (136-145) Potassium Level 3.1 mmol/L (3.5-5.1) Chloride Level 102 mmol/L (98-107) Carbon Dioxide Level 27 mmol/L (20-31) Anion Gap 8 (5-15) Blood Urea Nitrogen 11 mg/dL (9-23) Creatinine 0.82 mg/dL (0.700-1.30) Glomerular Filtration Rate Calc 105 mL/min (>90) BUN/Creatinine Ratio 13.4 (10.0-20.0) Serum Glucose 99 mg/dL (74-106) Calcium Level 7.7 mg/dL (8.7-10.4) Total Bilirubin 2.5 mg/dL (0.2-1.0) Aspartate Amino Transferase (AST) 38 U/L (13-40) Alanine Aminotransferase (ALT) 17 U/L (7-40) Alkaline Phosphatase 69 U/L (46-116) Ammonia 29 umol/L (11-32) Total Protein 5.2 g/dL (5.7-8.2) Albumin 2.1 g/dL (3.2-4.8) Body Fluid Source Peritoneal fluid Body Fluid pH 8.0 Body Fluid WBC (Manual) 125 CUMM (0-200) Body Fluid RBC (Manual) 376 CUMM (0-2000) Body Fluid Mononuclear Cells 93 % Body Fluid Polymorphonuclear Cells 7 % (0-25) Prothrombin Time 13.1 sec (9.3-11.8) Prothrombin Time INR 1.26 (0.9-1.15) Activated Partial Thromboplast Time 28.0 SEC (24.5-34.5) Urine Color Light-yellow (Yellow) Urine Clarity Clear (Clear) Urine pH 6.0 (5.0-9.0) Urine Specific Ernul 1.003 (1.001-1.035) Urine Protein Negative (Negative) Urine Ketones Negative (Negative) Urine Blood 1+ /uL (Negative) Urine Nitrite Negative (Negative) Urine Bilirubin Negative (Negative) Urine Urobilinogen Normal mg/dL (Negative) Urine Leukocyte Esterase Negative /uL (Negative) Urine RBC 1 /hpf (0 - 3) Urine Microscopic WBC < 1 /HPF (0-3) Urine Squamous Epithelial Cells None seen /hpf (<5) Urine Bacteria None seen /hpf (None Seen) Urine Glucose Normal mg/dL (Normal) Other Laboratory Tests 03/11/25 05:51 Brief Hx & Hospital Course: This is a 54 years old male with past medical history of alcohol abuse, liver cirrhosis, GERD, hypertension come to emergency department because of severe abdominal pain. The patient had a paracentesis done three weeks ago with 11 L of fluid taking off. He had follow up with his primary care physician and is working to get approval for outpatient paracentesis. However he did not have that set up done yet. Per patient his primary care physician had to refer him to the GI specialist and it will take up to almost a month or more to get outpatient paracentesis set up. Today he started having severe abdominal pain so he come into emergency department for further evaluation. The patient was found to have ascites through physical examined. So the patient subsequently had paracentesis done today with 13 L of fluid removed from his abdomen. The patient is hopeful that he will get his set up outpatient so he woke have to come to hospital more often. Physical exam: HEENT: Normocephalic atraumatic pupils equal react to light and accommodation. Extraocular muscles intact, conjunctiva pink, oropharynx moist, no thrush, no exudate. Lymphatic: No lymphadenopathy Cardiovascular exam: S1, S2 was heard. No murmurs, rubs, gallops Lung: Clear on auscultation bilaterally, no wheeze, rale, rhonchi. GI: Abdominal soft, nondistended, nontenderness, positive bowel sounds. Extremity: No crepitus, cyanosis, edema. Pedal pulses present bilateral. Full range of motion. Skin: Normal turgor, no rash. Psych: Alert, oriented x3. Neurology: No focal deficits, cranial nerve II to XII grossly intact. This medical document was created using an electronic medical record system with [employer] direct computerized dictation system. Although this document has been carefully reviewed, there may still be some phonetic and typographical errors. These areas are purely typographical due to imperfections of the software programs, and do not reflect any compromise in the patient's medical care. Condition at Discharge: Stable Final Diagnosis/Problems List Cirrhosis of liver, status post paracentesis. GERD, Hypertension, Discharge Disposition: Home Discharge Statement: "Patient was advised to return to the ER or call 911 if any headaches, dizziness, shortness of breath, chest pain, abdominal pain, bleeding, fevers, or worsening of medical condition. Patient was counseled about treatment plan, medications, possible side effects, patient�verbalized understanding. All questions were answered to the best of my ability. This discharge took greater then 30 minutes in planning, reviewing documentation, counseling the patient, and discussing with other team members." ASSESSMENT ASSESSMENT Assessment Date of Service: March 11, 2025 Billing Provider: JOSE WISE MD Common Visit Codes: 52931-YTA/OBS DISCH DAY >30min OJSE WISE MD March 11, 2025 11:13
[2025-03-11] MEDS: POTASSIUM CHL 20 Meq TABLET PO ONE (11:25)
[2025-03-11 13:00] VITALS: BP 99/60; PULSE 78; RESP 17; TEMP 98; O2SAT 100
[2025-03-12 12:07] LABS: Protein, Body Fluid 2.2 g/dL (.)
== END 2025-03-11 14:20 | disposition home or self-care (01) ==
LOC: ER 08:22 → OVERFLOW 12:43 → TELE-CENTR 18:22
PROVIDERS: ADMIT Internal Medicine; ATTEND Internal Medicine
PROC: 0W9G3ZZ Drainage of Peritoneal Cavity, Percutaneous Approach (ICD-10-PCS; principal; 2025-03-10)
DX: K74.60 Unspecified cirrhosis of liver (principal); R18.8 Other ascites; I10 Essential (primary) hypertension; F41.9 Anxiety disorder, unspecified; K21.9 Gastro-esophageal reflux disease without esophagitis; Z87.442 Personal history of urinary calculi; Z79.899 Other long term (current) drug therapy
CPT/HCPCS: 36415; 49083; 76942; 80053; 81001; 82140; 83986; 85025; 85610; 85730; 87205; 89051; 99291; G0378; J2405

== ENCOUNTER 2025-04-01 06:43 | Inpatient (IN) | payer MEDICAID ==
[~2025-04-01] VITALS: Ht 165.1 cm; Wt 79.3 kg
[~2025-04-01 06:43] MED LIST changes: -FURO40TA4 PO
--- NOTE | 2025-04-01 07:27 | ED.PDOC ---
GI ASSESSMENT HPI Comments 54 y/o M, with PMHx of liver cirrhosis, kidney stones, anxiety, depression, and HTN presents to the ED for CC of abdominal pain. Patient states, he has been experiencing diffuse abdominal pain d/t abdominal ascetics not being drained in [id number]. Patient relays, associated symptoms of shortness of breath as a result. Patient reports, that he still continues to drink heavily. Patient denies hematochezia, hematemesis, nausea, or chest pain. No other symptoms or modifying factors present at this time. Time Seen by MD: 07:05 Primary Care Provider: UNKNOWN Reviewed Notes: Nurses Notes, Medications, Allergies Allergies: Coded Allergies: NO KNOWN ALLERGIES (Unverified , 03/12/20) Home Meds Active Scripts Bumetanide (Bumetanide) 1 Mg Tab, 1 TAB PO BID for 30 Days, #60 TAB 3 Refills Prov:KAYLAN MELVIN DO 02/21/25 Magnesium Oxide (MAGNESIUM OXIDE) 400 Mg Tab, 400 MG OR DAILY for 30 Days, #30 TAB Prov:PORSCHE CROWE RESIDENT 07/31/24 Potassium Chloride (Potassium Chloride ER) 20 Meq Tab, 20 MEQ PO DAILY for 30 Days, #30 TAB Prov:PORSCHE CROWE RESIDENT 07/31/24 Multiple Vitamin (Multivitamins) Tab, 1 TAB PO DAILY for 90 Days, #90 TAB 0 Refills Prov:ANUJ MULLIGAN [employer] BUSINESS ANALYST 04/06/24 Sucralfate (CARAFATE) 1 Gm Tab, 1 GM OR QID for 30 Days, #120 TAB Prov:ANUJ MULLIGAN [employer] BUSINESS ANALYST 04/06/24 Lisinopril (Lisinopril) 20 Mg Tab, 1 TAB PO DAILYPRN for 60 Days, #60 TAB Prov:ANUJ MULLIGAN [employer] BUSINESS ANALYST 04/06/24 Propranolol HCl (Propranolol Hydrochloride) 20 Mg Tab, 1 TAB PO BID for 60 Days, #120 TAB Prov:ANUJ MULLIGAN [employer] BUSINESS ANALYST 04/06/24 Reported Medications Cholecalciferol (VITAMIN D3) 2,000 Unit Tab, 1 TAB PO DAILY for 90 Days, #90 02/03/25 Spironolactone (Spironolactone) 25 Mg Tab, 1 TAB PO DAILY for 30 Days, #30 02/03/25 Pantoprazole Sodium Sesquihydr (Protonix) 40 Mg Tab, 1 TAB PO BID for 30 Days, #60 02/02/25 Lactulose (Lactulose) 10 Gm/15 Ml Sharon, ML PO 11/25/24 Acamprosate Calcium (ACAMPROSATE CALCIUM DR) 333 Mg Tab, 333 MG PO QID, TAB 07/31/24 Folic Acid (Folic Acid) 1 Mg Tab, 1 MG PO DAILY, TAB 07/31/24 Thiamine Hcl (VITAMIN B-1) 100 Mg Tb, 1 TAB PO DAILY for 30 Days, #30 07/31/24 Information Source: Patient Mode of Arrival: Ambulatory Timing: Weeks Duration: Since onset Prehospital treatment: None Quality: None Vomitus: None Stool: Normal Severity: Moderate Recent: None Recent Hx of: None Pain Location: Diffuse Modifying Factors: Nothing Associated sign and symptoms: Abdominal Pain Past Medical History PAST MEDICAL HISTORY: Anxiety, Depression, HTN, Kidney Stones, Liver Surgical History: Hernia Repair Family History Family History: Reviewed,noncontributory to illness, Family hx of Cancer Social History Smoker: Non-Smoker Alcohol: Heavy Drugs: Denies Drug Use Lives In: Home Constitutional: denies: chills, diaphoresis, fatigue, fever, malaise, sweats, weakness, others EENTM: denies: blurred vision, double vision, ear bleeding, ear discharge, ear drainage, ear pain, ear ringing, eye pain, eye redness, hearing loss, mouth pain, mouth swelling, nasal discharge, nose bleeding, nose congestion, nose pain, photophobia, tearing, throat pain, throat swelling, voice changes, others Respiratory: reports: shortness of breath; denies: cough, hemoptysis, orthopnea, SOB at rest, SOB with excertion, stridor, wheezing, others Gastrointestinal: reports: abdomen distended, abdominal pain; denies: blood streaked bowels, constipated, diarrhea, dysphagia, difficulty swallowing, hematemesis, melena, nausea, poor appetite, poor fluid intake, rectal bleeding, rectal pain, vomiting, others Genitourinary: denies: burning, dysuria, flank pain, frequency, hematuria, incontinence, penile discharge, penile sore, pain, testicle pain, testicle swelling, urgency, others Neurological: denies: dizziness, fainting, headache, left sided numbness, left sided weakness, numbness, paresthesia, pre-existing deficit, right sided numbness, right sided weakness, seizure, speech problems, tingling, tremors, weakness, others Musculoskeletal: denies: back pain, gout, joint pain, joint swelling, muscle pain, muscle stiffness, neck pain, others Integumetry: denies: bruises, change in color, change in hair/nails, dryness, laceration, lesions, lumps, rash, wounds, others Allergic/Immunocompromised: denies: Difficulty Healing, Frequent Infections, Hives, Itching, others Hematologic/Lymphatic: denies: anemia, blood clots, easy bleeding, easy bruising, swollen glands, others Endocrine: denies: excessive hunger, excessive sweating, excessive thirst, excessive urination, flushing, intolerance to cold, intolerance to heat, unexplained weight gain, unexplained weight loss, others Psychiatric: denies: anxiety, bipolar disorder, depression, hopeless, panic disorder, schizophrenia, sleepless, suicidal, others All Other Systems: Reviewed and Negative Physical Exam General Appearance: Moderate Distress HEENT: Scleral Icterus (L), Scleral Icterus (R) Neck: Full Range of Motion, Non-Tender, Normal, Normal Inspection Respiratory: Chest Non-Tender, Lungs Clear, No Accessory Muscle Use, No Respiratory Distress, Normal Breath Sounds Cardiovascular: No Edema, No JVD, No Murmur, No Gallop, Normal Peripheral Pulses, Tachycardia Breast Exam: Deferred Gastrointestinal: Distended Genitalia: Deferred Pelvic: Deferred Rectal: Deferred Extremities: No calf tenderness, Normal capillary refill, Normal inspection, Normal range of motion, Non-tender, No pedal edema Musculoskeletal : Apperance: Normal Neurologic: Alert, treatment specialist II-XII nml as Tested, No Motor Deficits, Normal Affect, Normal Mood, No Sensory Deficits Cerebellar Function: Normal Reflexes: Normal Skin: Jaundice Peripheral Pulses: 3+ Radial (R), 3+ Radial (L) Lymphatic: No Adenopathy EKG EKG : Pulse Rate (adult): 102 Cardiac Rhythm: ST Was a procedure done? Was a procedure done?: No GI differential Dx Differential Diagnosis: Constipation, Diverticular disease, Esophagitis, Gastritis/PUD, Gastroenteritis, Other (abdominal ascites) X-Ray, Labs, Meds, VS Vital Signs Date Time Temp Pulse Resp B/P (MAP) Pulse Ox O2 Delivery O2 Flow Rate FiO2 04/01/25 06:43 97.9 100 20 132/86 (101) 98 97.9 Patient alert. Saturation pristine on room air. Patient jaundiced. Answering questions. Complaining of shortness a breath. Continues to drink alcohol. Counseled patient on effects of drinking alcohol for 15 minutes. Examination distended abdomen. Ascites. Last time he had paracentesis was three weeks ago. Reviewed his history. Explained to the patient that he will need paracentesis. Continue monitoring. EKG reviewed does not show any acute changes. Time of 1ST Reevaluation: 07:35 Reevaluation 1ST: Unchanged Patient Education/Counseling: Diagnosis, Treatment Family Education/Counseling: No Family Present Departure 1 Departure Time of Disposition: 07:31 Impression: Primary Impression: Alcoholic cirrhosis of liver with ascites Disposition: ADMITTED INPATIENT Admit to: Med Surg Condition: Guarded Critical Care Note Critical Care Time?: Yes (90 min-critical care time only) Critical care comment: Abdomen is distended paracentesis continue monitoring Stability Stability form required: No Heart Score Heart Score: Heart Score Response (Comments) Value History N/A 0 EKG N/A 0 Age N/A 0 Risk Factors N/A 0 Troponin N/A 0 Total 0 I personally scribed for JUN BRYANT MD ([email or web address]) on 04/01/25 at 07:27. Electronically submitted by Cara Nuñez ([email or web address]). JUN BRYANT MD April 01, 2025 07:27
--- NOTE | 2025-04-01 07:54 | DVH ---
CHEST RADIOGRAPH Indication: sob Technique: Single frontal view of the chest was obtained Comparison: XY CHEST PORTABLE on DOS: 02/02/25 FINDINGS: Lines and Tubes: None Lungs: No focal consolidation. Pleura: No effusion. No pneumothorax. Cardiomediastinal contours: Unremarkable Bones: No acute osseous abnormality. IMPRESSION: 1. No acute cardiopulmonary disease.
[2025-04-01 07:58] LABS: Urine Bacteria None Seen /hpf (None Seen)
[2025-04-01 08:09] LABS: Basophils # (auto) 0 10 ^3/uL (0-0.2); Basophils % (auto) 0.5 % (0.0-2.0); Eosinophils # (auto) 0.2 10 ^3/uL (0-0.8); Eosinophils % (auto) 4.8 % (0.0-7.0); Hematocrit 39.2 % (41.0-53.0); Hemoglobin 14.1 g/dL (13.5-17.5); Lymphocytes # (auto) 0.9 10 ^3/uL (0.4-5.4); Lymphocytes % (auto) 24.2 % (10.0-50.0); Mean Corpuscular Hemoglobin 36.2 pg (28.0-32.0); Mean Corpuscular Hgb Conc. 35.9 g/dL (32.0-36.0); Mean Corpuscular Volume 100.9 fL (80.0-100.0); Monocytes # (auto) 0.7 10 ^3/uL (0-1.3); Neutrophils % (auto) 52.3 % (37.0-80.0); Nucleated Red Blood Cells % 0.2 %; Platelet Count (auto) 112 10^3/uL (140-450); Red Blood Cells 3.89 10^6/uL (4.5-5.90); White Blood Cell 3.8 10^3/uL (4.4-10.8)
[2025-04-01 08:11] LABS: Alanine Aminotransferase 26 U/L (7-40); Anion Gap 7 (5-15); BUN/Creatinine Ratio 5.7 (10.0-20.0); Calcium 8.7 mg/dL (8.7-10.4); Carbon Dioxide 26 mmol/L (20-31); Chloride 98 mmol/L (98-107); Monocytes % (auto) 18.2 % (0.0-12.0); Potassium 3.8 mmol/L (3.5-5.1); Total Protein 7.3 g/dL (5.7-8.2)
[2025-04-01 08:12] LABS: Albumin 2.8 g/dL (3.2-4.8); Alkaline Phosphatase 121 U/L (46-116); Aspartate Aminotransferase 64 U/L (13-40); Bilirubin, Total 3.6 mg/dL (0.2-1.0); Blood Urea Nitrogen 5 mg/dL (9-23); Glucose 124 mg/dL (74-106); Sodium 131 mmol/L (136-145)
[2025-04-01 08:19] LABS: Urine Blood TRACE /uL (Negative); Urine Clarity Clear (Clear); Urine Color Light-Yellow (Yellow); Urine Protein, UAD Negative (Negative); Urine Specific Gravity 1.004 (1.001-1.035); Urine Squamous Epithelial Cell FEW /hpf (<5); Urine Urobilinogen 2 mg/dL (Negative)
[2025-04-01] MEDS ORDERED: MORPHINE SULFATE INJ 2 MG/ml SYRG IV PRN ×2 (10:45)
[2025-04-01] MEDS ORDERED: ONDANSETRON HCL 4 MG/2 ML VIAL IV PRN (10:45)
[2025-04-01] MEDS ORDERED: NITROGLYCERIN 0.4 MG SL TAB SL PRN (10:45)
[2025-04-01] MEDS ORDERED: ACETAMINOPHEN 325 MG TAB PO PRN (10:45)
--- NOTE | 2025-04-01 10:59 | DVHHP2 ---
History of Present Illness Reason for Visit: Abdominal pain History of Present Illness Yang Martin is a 54-year-old male with past medical history of hypertension, anxiety, depression, kidney stones, esophageal varices, umbilical hernia, cholelithiasis, alcohol dependence, alcoholic liver cirrhosis who presents to the ED for abdominal distention and pain with nausea and headache x5 days. Patient states that the last time he was here he had about 12 L drained. He also endorses smoking 6 beers per day and this morning he already had 1 beer. Patient denies any chest pain, shortness of breath, vomiting, diarrhea,, lightheadedness, fever, chills, dizziness, visual disturbances, tremors, anxiety, or altered level of consciousness. Patient states that he lives at home with his brother. Cardiovascular: HTN Hepatobiliary: Cirrhosis Psych: Anxiety, Depression Past Medical History kidney stones esophageal varices umbilical hernia cholelithiasis alcohol dependence Past Surgical History: Hernia Repair Family History: Cancer, DM, Other (Mom with cancer in brother with diabetes) Smoke: Quit ALCOHOL: heavy Drugs: None Lives: with Family Domestic Violence: Neg Review of Systems Constitutional: Yes: Other (Headache) Gastrointestinal: Nausea, Abdominal Pain, Other (Distention) Allergies: Coded Allergies: NO KNOWN ALLERGIES (Unverified , 03/12/20) Medications Current Medications Medications Dose Ordered Sig/Adama Route Start Time Stop Time Status Last Admin Dose Admin Ceftriaxone Sodium 50 ml @ 100 mls/hr DAILY@09 IV 04/02/25 09:00 UNV Acetaminophen/ Hydrocodone Bitart 1 tab Q4HP PRN PO 04/01/25 10:45 UNV Ondansetron HCl 4 mg Q4HP PRN IV 04/01/25 10:45 UNV Acetaminophen 650 mg Q6HP PRN PO 04/01/25 10:45 UNV Morphine Sulfate 2 mg Q4HPRN PRN IV 04/01/25 10:45 UNV Nitroglycerin 0.4 mg Q5MINP PRN SL 04/01/25 10:45 UNV Morphine Sulfate 2 mg Q30M PRN IV 04/01/25 10:45 UNV Exam Vital Signs Vital Signs Date Time Temp Pulse Resp B/P (MAP) Pulse Ox O2 Delivery O2 Flow Rate FiO2 04/01/25 09:38 98.6 103 16 150/97 (114) 98 98.6 General Appearance: Alert, Oriented X3, Cooperative, No acute distress HEENT: Atraumatic, PERRLA, EOMI Respiratory: Normal air movement Cardiovascular: Normal S1, Normal S2 Neuro: Normal gait, Normal speech, Strength at 5/5 X4 ext, Normal tone, Sensation intact Psych/Mental Status: Mental status NL, Mood NL Labs/Xrays Labs Test 04/01/25 07:40 04/01/25 07:35 Range/Units Urine Color Light-yellow Yellow Urine Clarity Clear Clear Urine pH 6.0 5.0-9.0 Urine Specific [place] 1.004 1.001-1.035 Urine Protein Negative Negative Urine Ketones Negative Negative Urine Blood Trace H Negative /uL Urine Nitrite Negative Negative Urine Bilirubin Negative Negative Urine Urobilinogen 2 H Negative mg/dL Urine Leukocyte Esterase Negative Negative /uL Urine RBC <1 0 - 3 /hpf Urine Microscopic WBC 0-3 /HPF Urine Squamous Epithelial Cells Few <5 /hpf Urine Bacteria None seen None Seen /hpf Urine Glucose Normal Normal mg/dL White Blood Count 3.8 L 4.4-10.8 10^3/uL Red Blood Count 3.89 L 4.5-5.90 10^6/uL Hemoglobin 14.1 13.5-17.5 g/dL Hematocrit 39.2 L 41.0-53.0 % Mean Corpuscular Volume 100.9 H 80.0-100.0 fL Mean Corpuscular Hemoglobin 36.2 H 28.0-32.0 pg Mean Corpuscular Hemoglobin Concent 35.9 32.0-36.0 g/dL Red Cell Distribution Width 14.0 11.8-14.3 % Platelet Count 112 L 140-450 10^3/uL Mean Platelet Volume 6.2 L 6.9-10.8 fL Neutrophils (%) (Auto) 52.3 37.0-80.0 % Lymphocytes (%) (Auto) 24.2 10.0-50.0 % Monocytes (%) (Auto) 18.2 H 0.0-12.0 % Eosinophils (%) (Auto) 4.8 0.0-7.0 % Basophils (%) (Auto) 0.5 0.0-2.0 % Neutrophils # (Auto) 2.0 1.6-8.6 10 ^3/uL Lymphocytes # (Auto) 0.9 0.4-5.4 10 ^3/uL Monocytes # (Auto) 0.7 0-1.3 10 ^3/uL Eosinophils # (Auto) 0.2 0-0.8 10 ^3/uL Basophils # (Auto) 0 0-0.2 10 ^3/uL Nucleated Red Blood Cells 0.2 % Sodium Level 131 L 136-145 mmol/L Potassium Level 3.8 3.5-5.1 mmol/L Chloride Level 98 98-107 mmol/L Carbon Dioxide Level 26 20-31 mmol/L Anion Gap 7 5-15 Blood Urea Nitrogen 5 L 9-23 mg/dL Creatinine 0.88 0.700-1.30 mg/dL Glomerular Filtration Rate Calc 103 >90 mL/min BUN/Creatinine Ratio 5.7 L 10.0-20.0 Serum Glucose 124 H 74-106 mg/dL Calcium Level 8.7 8.7-10.4 mg/dL Total Bilirubin 3.6 H 0.2-1.0 mg/dL Aspartate Amino Transferase (AST) 64 H 13-40 U/L Alanine Aminotransferase (ALT) 26 7-40 U/L Alkaline Phosphatase 121 H 46-116 U/L Total Protein 7.3 5.7-8.2 g/dL Albumin 2.8 L 3.2-4.8 g/dL CT CT AB PEL WO CON-NO ORAL OR IV INDICATION: PAIN AND DISTENSION EXAM DATE: 04/01/2025 11:18 AM COMPARISON: CT CT AB PEL WO CON-NO ORAL OR IV on DOS: 02/18/25, CT CT AB PEL WO CON-NO ORAL OR IV on DOS: 02/02/25, CT CT AB PEL WO CON-NO ORAL OR IV on DOS: 11/25/24 RADIATION DOSE: CTDIvol: 21.74 mGy, DLP: 1186.22 mGy*cm PROCEDURE: Helical CT images were obtained of the abdomen and pelvis without IV contrast Sagittal and coronal reconstructions are provided. ORAL CONTRAST: None. ADDITIONAL IMAGES / REFORMATS: None All CT scans at this medical facility are performed using dose modulation techniques as appropriate to a performed exam including the following: Automated exposure control was utilized; adjustment of the MA and/or KV according to patient size; and use of iterative reconstruction technique. FINDINGS: LUNG BASE: Bibasilar atelectasis is seen. LIVER: Nodular and heterogeneous liver. GALLBLADDER AND BILIARY TREE: Cholelithiasis. No intra- or extrahepatic biliary ductal dilation. PANCREAS: Normal. SPLEEN: Normal. BOWEL: Normal. ADRENALS: Normal. KIDNEYS AND URETER: Normal. BLADDER: Normal. REPRODUCTIVE ORGANS: Normal. LYMPH NODES:No lymphadenopathy. PERITONEUM: Large ascites. VESSELS: Scattered atherosclerotic calcifications are noted. RETROPERITONEUM: Normal. ABDOMINAL WALL: Normal. BONES: Scattered osseous degenerative changes are noted. IMPRESSION: Nodular and heterogeneous liver seen with cirrhosis. Gastroesophageal varices are seen. Large amount of ascites. US PARACENTESIS, HISTORY: ASCITES PROCEDURE: Informed consent was obtained. The patient was placed in supine position. A limited localization ultrasound of the abdomen was obtained, and the skin site over the largest pocket of fluid was marked and entry site was prepped with chlorhexidine which was allowed to dry and draped in the usual sterile fashion. Time out was performed. Following administration of 1% lidocaine local anesthetic, a 5 [place] centesis needle catheter was percutaneously inserted into the peritoneal collection until fluid was aspirated. The catheter was advanced into the fluid collection and the needle removed. About 07693 cc of fluid was aspirated . The catheter was then removed and a sterile dressing applied. 60 gm of albumin colloid infusion was given IV. No immediate complication was identified. FINDINGS: Limited ultrasound imaging demonstrates large ascites. Aspirated fluid was clear and serous. IMPRESSION: US-guided paracentesis with 14.1L removed. CHEST RADIOGRAPH Indication: sob Technique: Single frontal view of the chest was obtained Comparison: XY CHEST PORTABLE on DOS: 02/02/25 FINDINGS: Lines and Tubes: None Lungs: No focal consolidation. Pleura: No effusion. No pneumothorax. Cardiomediastinal contours: Unremarkable Bones: No acute osseous abnormality. IMPRESSION: 1. No acute cardiopulmonary disease. Assessment/Plan Assessment/Plan Assessment Rule out SBP Liver cirrhosis with ascites Thrombocytopenia Hyponatremia Hyperbilirubinemia Hypoalbuminemia ETOH abuse Obesity Gastroesophageal varices History of hypertension History of kidney stones History of hernia repair History of anxiety History of depression Plan Admit to telemetry IV antibiotics for empirical coverage CT abdomen and pelvis noted patient on PPIs and no hematemesis or melena room hematochezia endorsed or noted Blood culture Urine cultures UA Ultrasound/IR for paracentesis, -14L paracentesis Blood alcohol noted PT/INR CIWA UDS Hepatitis panel Diurese Magnesium level Thiamine Folic acid Multivitamins Librium Antiemetics Pain management Counseled patient on cessation of EtOH use Educated patient on lifestyle modifications, diet, and exercise DVT ppx - hold ac d/t thrombocytopenia, scds PUD PPX -Protonix and sucralfate, home medication Discussed plan of care with patient and nurse Home meds reconciled CIWA score at time of admission 2 points Plan discussed with: Patient My Orders Orders - CAMILO PARSONS SHIFT COORDINATOR Procedure Category Date Status Time Ceftriaxone 1gm/50ml PHA 04/02/25 Logged D5w (Rocephin) 09:00 Ammonia LAB 04/01/25 Logged 10:34 Admit ADMIT 04/01/25 Transmitted 10:34 Allergies JOSE 04/01/25 In Process 10:34 Code Status CODE 04/01/25 Transmitted 10:34 Hydrocodone-Acet PHA 04/01/25 Logged 5/325mg Tab ([place] 10:45 Ondansetron Hcl PHA 04/01/25 Logged (Zofran) 10:45 Complete Blood Count LAB 04/02/25 Verified 04:00 Comprehensive LAB 04/02/25 Verified Metabolic Panel 04:00 Cardiac DIET 04/01/25 Transmitted Diet-2gna,Lofat,Lochol Lunch Acetaminophen Tablet PHA 04/01/25 Logged (Tylenol Tablet) 10:45 Morphine Sulfate PHA 04/01/25 Logged Injection 10:45 Sequential JOSE 04/01/25 In Process Compression Device Nitroglycerin PHA 04/01/25 Logged Sublingual (Ntrostat 10:45 Morphine Sulfate PHA 04/01/25 Logged Injection 10:45 Stat Ekg For Chest JOSE 04/01/25 In Process Pain 10:34 Notify Of Changes JOSE 04/01/25 In Process From Base 10:34 Balance Truer For JOSE 04/01/25 In Process 24 Hours 10:34 Emergency Dysrhythmia JOSE 04/01/25 In Process Protocol 10:34 Rhythm Strips Once JOSE 04/01/25 In Process Every Shift 10:34 Oxygen By Nasal RT 04/01/25 Transmitted Cannula 10:34 Lipase LAB 04/01/25 In Process 10:38 Blood Alcohol LAB 04/01/25 In Process 10:38 Bumetanide Tablet PHA 04/01/25 Verified (Bumex Tablet) 22:00 Lisinopril Tablet PHA 04/02/25 Verified (Zestril Tablet) 10:00 Multiple Vitamin PHA 04/02/25 Verified Tablet (Mvi Tab) 10:00 Pantoprazole Tablet PHA 04/01/25 Verified (Protonix Tablet) 22:00 Propranolol Hcl PHA 04/01/25 Verified Tablet (Inderal 22:00 Spironolactone PHA 04/02/25 Verified (Aldactone) 10:00 Sucralfate Tab PHA 04/01/25 Verified (Carafate Tab) 12:00 Thiamine Tab PHA 04/02/25 Verified 10:00 (Nf) Acamprosate PHA 04/01/25 Verified Calcium (Acamprosate 12:00 (Nf) Cholecalciferol PHA 04/02/25 Verified (Vitamin D3) 10:00 (Nf) Folic Acid PHA 04/02/25 Verified 10:00 (Nf) Magnesium Oxide PHA 04/02/25 Verified 10:00 Date of Service: April 01, 2025 Billing Provider: CAMILO PARSONS Common Visit Codes: [id number] INP/OBS CARE (HIGH) CAMILO PARSONS April 01, 2025 10:59
[2025-04-01 11:11] LABS: Blood Alcohol 145.9 mg/dL (<10)
[2025-04-01 12:00] VITALS: PULSE 105; RESP 20; O2SAT 98
--- NOTE | 2025-04-01 12:00 | DVH ---
CT CT AB PEL WO CON-NO ORAL OR IV INDICATION: PAIN AND DISTENSION EXAM DATE: 04/01/2025 11:18 AM COMPARISON: CT CT AB PEL WO CON-NO ORAL OR IV on DOS: 02/18/25, CT CT AB PEL WO CON-NO ORAL OR IV on D OS: 02/02/25, CT CT AB PEL WO CON-NO ORAL OR IV on DOS: 11/25/24 RADIATION DOSE: CTDIvol: 21.74 mGy, DLP: 1186.22 mGy*cm PROCEDURE: Helical CT images were obtained of the abdomen and pelvis without IV contrast Sagittal and coronal reconstructions are provided. ORAL CONTRAST: None. ADDITIONAL IMAGES / REFORMATS: None All C T scans at this medical facility are performed using dose modulation techniques as appropriate to a p erformed exam including the following: Automated exposure control was utilized; adjustment of the MA and/or KV according to patient size; and use of iterative reconstruction technique. FINDINGS: LUNG BASE: Bibasilar atelectasis is seen. LIVER: Nodular and heterogeneous liver. GALLBLADDER AND BILIARY TREE: Cholelithiasis. No intra- or extrahepatic biliary ductal dilation. PANCREAS: Normal. SPLEEN: Normal. BOWEL: Normal. ADRENALS: Normal. KIDNEYS AND URETER: Normal. BLADDER: Normal. REPRODUCTIVE ORGANS: Normal. LYMPH NODES:No lymphadenopathy. PERITONEUM: Large ascites. VESSELS: Scattered atherosclerotic calcifications are noted. RETROPERITONEUM: Normal. ABDOMINAL WALL: Normal. BONES: Scattered osseous degenerative changes are noted. IMPRESSION: Nodular and heterogeneous liver seen with cirrhosis. Gastroesophageal varices are seen. Large amount of ascites.
[2025-04-01] MEDS: SUCRALFATE 1 GM TAB PO SCH (13:03)
[2025-04-01] MEDS: PROPRANOLOL HCL 20 MG TAB PO SCH (13:07)
[2025-04-01] MEDS: LISINOPRIL 20 MG TAB PO SCH (13:07)
--- NOTE | 2025-04-01 14:31 | DVH ---
US PARACENTESIS, HISTORY: ASCITES PROCEDURE: Informed consent was obtained. The patient was placed in supine position. A limited locali zation ultrasound of the abdomen was obtained, and the skin site over the largest pocket of fluid was marked and entry site was prepped with chlorhexidine which was allowed to dry and draped in the usua l sterile fashion. Time out was performed. Following administration of 1% lidocaine local anesthetic, a 5 [place] centesis needle catheter was percutaneously inserted into the peritoneal collection until fluid was aspirated. The catheter was advanced into the fluid collection and [place] [id number] cc of fluid was aspirated . The catheter was then removed and a sterile dressing applied. 60 gm of albumin colloid infusion was given IV. No immediate complication was identified. FINDINGS: Limited ultrasound imaging demonstrates large ascites. Aspirated fluid was clear and serous . IMPRESSION: US-guided paracentesis with 14.1L removed.
[2025-04-01 15:24] LABS: Body Fluid Red Blood Cells 135 CUMM (0-2000); Body Fluid White Blood Cells 193 CUMM (0-200)
[2025-04-01] MEDS: ACAMPROSATE CALCIUM 333 MG PO SCH (15:32)
[2025-04-01] MEDS: ALBUMIN 25% 100 ML IV ONE (16:38)
[2025-04-01] MEDS: chlordiazePOXIDE HCL 5 MG CAP PO PRN (16:39)
[2025-04-01] MEDS: HYDROcodone-ACET 5/325MG TAB PO PRN (16:39)
[2025-04-01] MEDS: PANTOPRAZOLE 40 MG TAB PO SCH (16:40)
[2025-04-01] MEDS: BUMETANIDE 1 MG TAB PO SCH (16:41)
[2025-04-01 17:18] VITALS: BP 91/55; PULSE 89; RESP 18; TEMP 98.2; O2SAT 96
[2025-04-01 17:52] VITALS: PULSE 89; RESP 18; O2SAT 96
[2025-04-01 18:09] LABS: INR 1.36 (0.9-1.15)
[2025-04-01 20:00] VITALS: PULSE 92; RESP 17; O2SAT 98
[2025-04-01 21:00] VITALS: BP 96/58; PULSE 87; RESP 17; TEMP 97.4; O2SAT 98
[2025-04-02] VITALS (9 sets, daily range): BP systolic 92–107; BP diastolic 55–68; PULSE 80–94; RESP 18; TEMP 97.9–98.7; O2SAT 98–100
[2025-04-02 08:33] LABS: Hematocrit 33.9 % (41.0-53.0)
[2025-04-02 08:34] LABS: Hemoglobin 12.1 g/dL (13.5-17.5); Mean Corpuscular Hemoglobin 36.4 pg (28.0-32.0); Mean Corpuscular Hgb Conc. 35.7 g/dL (32.0-36.0); Mean Corpuscular Volume 101.9 fL (80.0-100.0); Platelet Count (auto) 75 10^3/uL (140-450); Red Blood Cells 3.33 10^6/uL (4.5-5.90); Red Cell Distribution Width 13.9 % (11.8-14.3); White Blood Cell 3.8 10^3/uL (4.4-10.8)
[2025-04-02 08:40] LABS: Basophils % (manual) 0 (0.0-2.0); Blast Cells 0; Metamyelocytes % 0; Myelocytes % 0; Promyelocytes % 0; Reactive Lymphocytes 0
[2025-04-02 08:52] LABS: Alanine Aminotransferase 17 U/L (7-40); Alkaline Phosphatase 87 U/L (46-116); Anion Gap 7 (5-15); BUN/Creatinine Ratio 10.9 (10.0-20.0); Blood Urea Nitrogen 11 mg/dL (9-23); Carbon Dioxide 27 mmol/L (20-31); Chloride 102 mmol/L (98-107); Glucose 96 mg/dL (74-106); Potassium 3.7 mmol/L (3.5-5.1); Sodium 136 mmol/L (136-145)
[2025-04-02 09:03] LABS: Albumin 2.3 g/dL (3.2-4.8); Aspartate Aminotransferase 45 U/L (13-40); Bilirubin, Total 3.5 mg/dL (0.2-1.0); Calcium 8.5 mg/dL (8.7-10.4); Total Protein 5.6 g/dL (5.7-8.2)
[2025-04-02 09:36] LABS: Band Neutrophils % (manual) 3; Eosinophils % (manual) 3 (0-7); Lymphocytes % (manual) 21 (10.0-50.0); Monocytes % (manual) 16 (0-12)
[2025-04-02 09:37] LABS: Macrocytosis Slight; Platelet Estimate Decreased
[2025-04-02] MEDS ORDERED: PATIENTS OWN MEDICATION (Magnesium Oxide 400 MG) OR SCH (10:00)
[2025-04-02] MEDS ORDERED: PATIENTS OWN MEDICATION (Cholecalciferol (Vitamin D3) 1 TAB) PO SCH (10:00)
[2025-04-02] MEDS ORDERED: PATIENTS OWN MEDICATION (Folic Acid 1 MG) PO SCH (10:00)
[2025-04-02] MEDS: cefTRIAXone 1GM/50ML D5W 50 ML IV SCH (10:19)
[2025-04-02] MEDS: THIAMINE HCL 100 MG TAB PO SCH (10:19)
[2025-04-02] MEDS: SPIRONOLACTONE 25 MG TAB PO SCH (10:20)
[2025-04-02] MEDS: MAGNESIUM OXIDE 400 MG TAB PO SCH (10:20)
[2025-04-02] MEDS: MULTIPLE VITAMIN TAB PO SCH (10:20)
[2025-04-02] MEDS: FOLIC ACID 1 MG TAB PO SCH (10:20)
[2025-04-02] MEDS: CHOLECALCIFEROL (VITD3) 1,000UNIT=25mCg TAB PO SCH (10:20)
[2025-04-02 10:56] LABS: Hepatitis A Ab IgM Negative; Hepatitis B Core IgM Negative (Negative); Hepatitis B Surface Antigen Negative (Negative); Hepatitis C Antibody Negative (Negative)
--- NOTE | 2025-04-02 22:40 | DVHPN2 ---
Reviewed: Care Plan, H&P, Labs, Medications, Previous Orders, Radiology Changes from previous H/P or p: No Changes General: Per HPI Gastrointestinal: Nausea, Abdominal Pain, Other (Distention) Objective Vitals Vital Signs Date Time Temp Pulse Resp B/P (MAP) Pulse Ox O2 Delivery O2 Flow Rate FiO2 04/02/25 21:20 94 101/64 04/02/25 21:00 98.2 18 100 98.2 04/02/25 08:10 Room Air* 0 21 Intake/Output Intake and Output 04/02/25 07:00 Intake Total 1000 ml Balance 1000 ml Intake Oral 1000 ml # Voids 8 # Bowel Movements 1 General Appearance: Alert, Oriented X3 Cardiovascular: Regular rate, Normal S1, Normal S2 Medications Current Medications Medications Dose Ordered Sig/Adama Route Start Time Stop Time Status Last Admin Dose Admin Ceftriaxone Sodium 50 ml @ 100 mls/hr DAILY@09 IV 04/02/25 09:00 04/02/25 10:19 100 MLS/HR Acetaminophen/ Hydrocodone Bitart 1 tab Q4HP PRN PO 04/01/25 10:45 04/01/25 16:39 1 TAB Ondansetron HCl 4 mg Q4HP PRN IV 04/01/25 10:45 Acetaminophen 650 mg Q6HP PRN PO 04/01/25 10:45 Morphine Sulfate 2 mg Q4HPRN PRN IV 04/01/25 10:45 Nitroglycerin 0.4 mg Q5MINP PRN SL 04/01/25 10:45 Morphine Sulfate 2 mg Q30M PRN IV 04/01/25 10:45 Bumetanide 1 mg BIDD PO 04/01/25 18:00 04/02/25 17:30 1 MG Lisinopril 20 mg DAILY PO 04/01/25 12:22 04/01/25 13:07 20 MG Multivitamins 1 tab DAILY PO 04/02/25 10:00 04/02/25 10:20 1 TAB Pantoprazole Sodium 40 mg BIDAC PO 04/01/25 17:00 04/02/25 17:08 40 MG Propranolol HCl 20 mg BID PO 04/01/25 12:23 04/02/25 21:20 20 MG Spironolactone 25 mg DAILY PO 04/02/25 10:00 04/02/25 10:20 25 MG Sucralfate 1 gm QID PO 04/01/25 12:00 04/02/25 21:19 1 GM Thiamine HCl 100 mg DAILY PO 04/02/25 10:00 04/02/25 10:19 100 MG Patient Own Medication 333 mg QID PO 04/01/25 12:00 Patient Own Medication 1 tab DAILY PO 04/02/25 10:00 UNV Patient Own Medication 1 mg DAILY PO 04/02/25 10:00 UNV Patient Own Medication 400 mg DAILY OR 04/02/25 10:00 UNV Chlordiazepoxide HCl 5 mg Q6HPRN PRN PO 04/01/25 11:00 04/01/25 16:39 5 MG Magnesium Oxide 400 mg DAILY PO 04/02/25 10:00 04/02/25 10:20 400 MG Folic Acid 1 mg DAILY PO 04/02/25 10:00 04/02/25 10:20 1 MG Cholecalciferol 2,000 unit DAILY PO 04/02/25 10:00 04/02/25 10:20 2,000 UNIT Laboratory Results Laboratory Tests 04/02/25 07:19 Chemistry Test 04/02/25 07:19 Albumin 2.3 g/dL (3.2-4.8) L Calcium Level 8.5 mg/dL (8.7-10.4) L Total Protein 5.6 g/dL (5.7-8.2) L LFT Test 04/02/25 07:19 Alanine Aminotransferase (ALT) 17 U/L (7-40) Alkaline Phosphatase 87 U/L (46-116) Aspartate Amino Transferase (AST) 45 U/L (13-40) H Total Bilirubin 3.5 mg/dL (0.2-1.0) H Urinalysis Test 04/01/25 07:40 Urine Color Light-yellow (Yellow) Urine Clarity Clear (Clear) Urine pH 6.0 (5.0-9.0) Urine Specific [place] 1.004 (1.001-1.035) Urine Protein Negative (Negative) Urine Ketones Negative (Negative) Urine Blood Trace /uL (Negative) H Urine Nitrite Negative (Negative) Urine Bilirubin Negative (Negative) Urine Urobilinogen 2 mg/dL (Negative) H Urine Leukocyte Esterase Negative /uL (Negative) Urine RBC <1 /hpf (0 - 3) Urine Microscopic WBC /HPF (0-3) Urine Squamous Epithelial Cells Few /hpf (<5) Urine Bacteria None seen /hpf (None Seen) Urine Glucose Normal mg/dL (Normal) Microbiology Microbiology Date/Time Source Procedure Growth Status 04/01/25 14:20 Ascities Fluid Gram Stain Pending Resulted 04/01/25 14:20 Ascities Fluid Body Fluid Culture - Preliminary Resulted 04/01/25 11:13 Blood Blood Culture - Preliminary NO GROWTH AFTER 24 HOURS OF INCUBATION. Resulted 04/01/25 07:40 Voided Urine Urine Culture - Preliminary Resulted Labs and/or images reviewed: Labs reviewed by me, Image(s) reviewed by me Assessment/Plan Assessment/Plan Yang Martin is a 54-year-old male with past medical history of hypertension, anxiety, depression, kidney stones, esophageal varices, umbilical hernia, cholelithiasis, alcohol dependence, alcoholic liver cirrhosis who presents to the ED for abdominal distention and pain with nausea and headache x5 days. Patient states that the last time he was here he had about 12 L drained. He also endorses smoking 6 beers per day and this morning he already had 1 beer. Patient denies any chest pain, shortness of breath, vomiting, diarrhea,, lightheadedness, fever, chills, dizziness, visual disturbances, tremors, anxiety, or altered level of consciousness. Patient states that he lives at home with his brother. Rule out SBP Liver cirrhosis with ascites Thrombocytopenia Hyponatremia Hyperbilirubinemia Hypoalbuminemia ETOH abuse Obesity Gastroesophageal varices History of hypertension History of kidney stones History of hernia repair History of anxiety History of depression 04/02/2025 pt had para with >9 liter taken out pending evaluation for further para Plan discussed with: Patient Date of Service: April 02, 2025 Billing Provider: KAYLAN MELVIN DO Common Visit Codes: [id number] INP/OBS CARE(HIGH) KAYLAN MELVIN DO April 02, 2025 22:40
[2025-04-03] VITALS (10 sets, daily range): BP systolic 89–113; BP diastolic 54–65; PULSE 74–96; RESP 17–18; TEMP 98–99.3; O2SAT 95–100
[2025-04-03] MEDS: FUROSEMIDE 100 MG/10ML VIAL IV SCH (05:36)
[2025-04-04] VITALS (8 sets, daily range): BP systolic 95–117; BP diastolic 57–73; PULSE 73–82; RESP 16–20; TEMP 97.6–98.8; O2SAT 96–100
--- NOTE | 2025-04-04 09:08 | MEDREC ---
[facility] Intervention Section I [facility] Intervention: Review courses of therapy (PLEASE CONSIDER REVIEWING COURSE OF THERAPY BASED ON CULTURE RESULTS IF CLINICALLY RELEVANT) BOBBY RDZ PHARMACIST Apr 04, 2025 09:08
--- NOTE | 2025-04-04 11:02 | DVHPN2 ---
Reviewed: Care Plan Changes from previous H/P or p: No Changes General: Per HPI Gastrointestinal: Nausea, Abdominal Pain, Other (Distention) Objective Vitals Vital Signs Date Time Temp Pulse Resp B/P (MAP) Pulse Ox O2 Delivery O2 Flow Rate FiO2 04/04/25 09:07 80 96/56 04/04/25 08:39 98.3 20 99 98.3 04/04/25 08:00 Room Air* 0 21 Intake/Output Intake and Output 04/04/25 07:00 Intake Total 1550 ml Output Total 450 ml Balance 1100 ml Intake Oral 1500 ml IV Total 50 ml Output Urine Total 450 ml # Voids 5 # Bowel Movements 1 Medications Current Medications Medications Dose Ordered Sig/Adama Route Start Time Stop Time Status Last Admin Dose Admin Ceftriaxone Sodium 50 ml @ 100 mls/hr DAILY@09 IV 04/02/25 09:00 04/04/25 09:01 100 MLS/HR Acetaminophen/ Hydrocodone Bitart 1 tab Q4HP PRN PO 04/01/25 10:45 04/01/25 16:39 1 TAB Ondansetron HCl 4 mg Q4HP PRN IV 04/01/25 10:45 Acetaminophen 650 mg Q6HP PRN PO 04/01/25 10:45 Morphine Sulfate 2 mg Q4HPRN PRN IV 04/01/25 10:45 Nitroglycerin 0.4 mg Q5MINP PRN SL 04/01/25 10:45 Morphine Sulfate 2 mg Q30M PRN IV 04/01/25 10:45 Bumetanide 1 mg BIDD PO 04/01/25 18:00 04/03/25 17:54 1 MG Lisinopril 20 mg DAILY PO 04/01/25 12:22 04/01/25 13:07 20 MG Multivitamins 1 tab DAILY PO 04/02/25 10:00 04/04/25 09:05 1 TAB Pantoprazole Sodium 40 mg BIDAC PO 04/01/25 17:00 04/04/25 06:36 40 MG Propranolol HCl 20 mg BID PO 04/01/25 12:23 04/03/25 22:24 20 MG Spironolactone 25 mg DAILY PO 04/02/25 10:00 04/04/25 09:05 25 MG Sucralfate 1 gm QID PO 04/01/25 12:00 04/04/25 06:37 1 GM Thiamine HCl 100 mg DAILY PO 04/02/25 10:00 04/04/25 09:06 100 MG Patient Own Medication 333 mg QID PO 04/01/25 12:00 Patient Own Medication 1 tab DAILY PO 04/02/25 10:00 UNV Patient Own Medication 1 mg DAILY PO 04/02/25 10:00 UNV Patient Own Medication 400 mg DAILY OR 04/02/25 10:00 UNV Chlordiazepoxide HCl 5 mg Q6HPRN PRN PO 04/01/25 11:00 04/01/25 16:39 5 MG Magnesium Oxide 400 mg DAILY PO 04/02/25 10:00 04/04/25 09:07 400 MG Folic Acid 1 mg DAILY PO 04/02/25 10:00 04/04/25 09:06 1 MG Cholecalciferol 2,000 unit DAILY PO 04/02/25 10:00 04/04/25 09:05 2,000 UNIT Furosemide 80 mg BIDD IV 04/03/25 06:00 04/03/25 17:54 80 MG Laboratory Results Laboratory Tests 04/02/25 07:19 Urinalysis Test 04/01/25 07:40 Urine Color Light-yellow (Yellow) Urine Clarity Clear (Clear) Urine pH 6.0 (5.0-9.0) Urine Specific [place] 1.004 (1.001-1.035) Urine Protein Negative (Negative) Urine Ketones Negative (Negative) Urine Blood Trace /uL (Negative) H Urine Nitrite Negative (Negative) Urine Bilirubin Negative (Negative) Urine Urobilinogen 2 mg/dL (Negative) H Urine Leukocyte Esterase Negative /uL (Negative) Urine RBC <1 /hpf (0 - 3) Urine Microscopic WBC /HPF (0-3) Urine Squamous Epithelial Cells Few /hpf (<5) Urine Bacteria None seen /hpf (None Seen) Urine Glucose Normal mg/dL (Normal) Microbiology Microbiology Date/Time Source Procedure Growth Status 04/01/25 14:20 Ascities Fluid Gram Stain Pending Resulted 04/01/25 14:20 Ascities Fluid Body Fluid Culture - Preliminary Resulted 04/01/25 11:13 Blood Blood Culture - Preliminary NO GROWTH AFTER 48 HOURS OF INCUBATION. Resulted 04/01/25 07:40 Voided Urine Urine Culture - Final Klebsiella oxytoca Pseudomonas aeruginosa Complete Assessment/Plan Assessment/Plan Yang Martin is a 54-year-old male with past medical history of hypertension, anxiety, depression, kidney stones, esophageal varices, umbilical hernia, cholelithiasis, alcohol dependence, alcoholic liver cirrhosis who presents to the ED for abdominal distention and pain with nausea and headache x5 days. Patient states that the last time he was here he had about 12 L drained. He also endorses smoking 6 beers per day and this morning he already had 1 beer. Patient denies any chest pain, shortness of breath, vomiting, diarrhea,, lightheadedness, fever, chills, dizziness, visual disturbances, tremors, anxiety, or altered level of consciousness. Patient states that he lives at home with his brother. Rule out SBP Liver cirrhosis with ascites Thrombocytopenia Hyponatremia Hyperbilirubinemia Hypoalbuminemia ETOH abuse Obesity Gastroesophageal varices History of hypertension History of kidney stones History of hernia repair History of anxiety History of depression 04/02/2025 pt had para with >9 liter taken out pending evaluation for further para 04/03/2025 pt evaluated at bedside still has distended abd will consult pulm for evaluate for para Plan discussed with: Patient Date of Service: April 03, 2025 Billing Provider: KAYLAN MELVIN DO Common Visit Codes: [id number] INP/OBS CARE(MOD) KAYLAN MELVIN DO Apr 04, 2025 11:02
--- NOTE | 2025-04-04 12:45 | DVH ---
Technique: Real-time ultrasound imaging of the abdomen was performed with grayscale imaging. Indication: for need for another paracentesis Comparison: None Findings: Small to moderate volume of ascites fluid. Cirrhotic morphology liver Impression: 1. As above
--- NOTE | 2025-04-04 22:08 | DVHPN2 ---
Reviewed: Care Plan, H&P, Labs, Medications, Previous Orders, Radiology Changes from previous H/P or p: No Changes General: Per HPI Gastrointestinal: Nausea, Abdominal Pain, Other (Distention) Objective Vitals Vital Signs Date Time Temp Pulse Resp B/P (MAP) Pulse Ox O2 Delivery O2 Flow Rate FiO2 04/04/25 21:00 97.8 80 17 100/68 (79) 99 97.8 04/04/25 20:00 Room Air* 0 21 Intake/Output Intake and Output 04/04/25 07:00 Intake Total 1550 ml Output Total 450 ml Balance 1100 ml Intake Oral 1500 ml IV Total 50 ml Output Urine Total 450 ml # Voids 5 # Bowel Movements 1 General Appearance: Alert, Oriented X3 Cardiovascular: Regular rate, Normal S1, Normal S2 Medications Current Medications Medications Dose Ordered Sig/Adama Route Start Time Stop Time Status Last Admin Dose Admin Ceftriaxone Sodium 50 ml @ 100 mls/hr DAILY@09 IV 04/02/25 09:00 04/04/25 09:01 100 MLS/HR Acetaminophen/ Hydrocodone Bitart 1 tab Q4HP PRN PO 04/01/25 10:45 04/01/25 16:39 1 TAB Ondansetron HCl 4 mg Q4HP PRN IV 04/01/25 10:45 Acetaminophen 650 mg Q6HP PRN PO 04/01/25 10:45 Morphine Sulfate 2 mg Q4HPRN PRN IV 04/01/25 10:45 Nitroglycerin 0.4 mg Q5MINP PRN SL 04/01/25 10:45 Morphine Sulfate 2 mg Q30M PRN IV 04/01/25 10:45 Bumetanide 1 mg BIDD PO 04/01/25 18:00 04/04/25 17:58 1 MG Lisinopril 20 mg DAILY PO 04/01/25 12:22 04/01/25 13:07 20 MG Multivitamins 1 tab DAILY PO 04/02/25 10:00 04/04/25 09:05 1 TAB Pantoprazole Sodium 40 mg BIDAC PO 04/01/25 17:00 04/04/25 17:58 40 MG Propranolol HCl 20 mg BID PO 04/01/25 12:23 04/03/25 22:24 20 MG Spironolactone 25 mg DAILY PO 04/02/25 10:00 04/04/25 09:05 25 MG Sucralfate 1 gm QID PO 04/01/25 12:00 04/04/25 17:58 1 GM Thiamine HCl 100 mg DAILY PO 04/02/25 10:00 04/04/25 09:06 100 MG Patient Own Medication 333 mg QID PO 04/01/25 12:00 Patient Own Medication 1 tab DAILY PO 04/02/25 10:00 UNV Patient Own Medication 1 mg DAILY PO 04/02/25 10:00 UNV Patient Own Medication 400 mg DAILY OR 04/02/25 10:00 UNV Chlordiazepoxide HCl 5 mg Q6HPRN PRN PO 04/01/25 11:00 04/01/25 16:39 5 MG Magnesium Oxide 400 mg DAILY PO 04/02/25 10:00 04/04/25 09:07 400 MG Folic Acid 1 mg DAILY PO 04/02/25 10:00 04/04/25 09:06 1 MG Cholecalciferol 2,000 unit DAILY PO 04/02/25 10:00 04/04/25 09:05 2,000 UNIT Furosemide 80 mg BIDD IV 04/03/25 06:00 04/04/25 17:57 80 MG Laboratory Results Laboratory Tests 04/02/25 07:19 Urinalysis Test 04/01/25 07:40 Urine Color Light-yellow (Yellow) Urine Clarity Clear (Clear) Urine pH 6.0 (5.0-9.0) Urine Specific [place] 1.004 (1.001-1.035) Urine Protein Negative (Negative) Urine Ketones Negative (Negative) Urine Blood Trace /uL (Negative) H Urine Nitrite Negative (Negative) Urine Bilirubin Negative (Negative) Urine Urobilinogen 2 mg/dL (Negative) H Urine Leukocyte Esterase Negative /uL (Negative) Urine RBC <1 /hpf (0 - 3) Urine Microscopic WBC /HPF (0-3) Urine Squamous Epithelial Cells Few /hpf (<5) Urine Bacteria None seen /hpf (None Seen) Urine Glucose Normal mg/dL (Normal) Microbiology Microbiology Date/Time Source Procedure Growth Status 04/01/25 14:20 Ascities Fluid Gram Stain - Final Resulted 04/01/25 14:20 Ascities Fluid Body Fluid Culture - Preliminary Resulted 04/01/25 11:13 Blood Blood Culture - Preliminary NO GROWTH AFTER 72 HOURS OF INCUBATION. Resulted 04/01/25 07:40 Voided Urine Urine Culture - Final Klebsiella oxytoca Pseudomonas aeruginosa Complete Assessment/Plan Assessment/Plan Yang Martin is a 54-year-old male with past medical history of hypertension, anxiety, depression, kidney stones, esophageal varices, umbilical hernia, cholelithiasis, alcohol dependence, alcoholic liver cirrhosis who presents to the ED for abdominal distention and pain with nausea and headache x5 days. Patient states that the last time he was here he had about 12 L drained. He also endorses smoking 6 beers per day and this morning he already had 1 beer. Patient denies any chest pain, shortness of breath, vomiting, diarrhea,, lightheadedness, fever, chills, dizziness, visual disturbances, tremors, anxiety, or altered level of consciousness. Patient states that he lives at home with his brother. Rule out SBP Liver cirrhosis with ascites Thrombocytopenia Hyponatremia Hyperbilirubinemia Hypoalbuminemia ETOH abuse Obesity Gastroesophageal varices History of hypertension History of kidney stones History of hernia repair History of anxiety History of depression 04/02/2025 pt had para with >9 liter taken out pending evaluation for further para 04/03/2025 pt evaluated at bedside still has distended abd will consult pulm for evaluate for para 04/04/2025 obtained abd US and pt has mild to moderate ascites still consulted IR to do para Plan discussed with: Patient My Orders Orders - KAYLAN MELVIN DO Procedure Category Date Status Time Abdomen Limited US 04/04/25 Resulted 11:01 Date of Service: Apr 04, 2025 Billing Provider: KAYLAN MELVIN DO Common Visit Codes: [id number] INP/OBS CARE(HIGH) KAYLAN MELVIN DO Apr 04, 2025 22:08
[2025-04-05 01:00] VITALS: BP 95/53; PULSE 79; RESP 17; TEMP 98; O2SAT 99
[2025-04-05 05:00] VITALS: BP 89/57; PULSE 79; RESP 17; TEMP 98; O2SAT 99
[2025-04-05 08:00] VITALS: PULSE 72; PULSE 80; O2SAT 99
[2025-04-05 08:59] VITALS: BP 102/65; PULSE 71; RESP 16; TEMP 97.9; O2SAT 98
--- NOTE | 2025-04-05 09:32 | DVH ---
US PARACENTESIS, HISTORY: PARA PROCEDURE: Informed consent was obtained. The patient was placed in supine position. A limited locali zation ultrasound of the abdomen was obtained, and the skin site over the largest pocket of fluid was marked and entry site was prepped with chlorhexidine which was allowed to dry and draped in the usua l sterile fashion. Time out was performed. Following administration of 1% lidocaine local anesthetic, a 5 Portuguese centesis needle catheter was percutaneously inserted into the peritoneal collection until fluid was aspirated. The catheter was advanced into the fluid collection and the needle removed. Abo [place] 4150 cc of fluid was aspirated . The catheter was then removed and a sterile dressing applied. No immediate complication was identified. FINDINGS: Limited ultrasound imaging demonstrates mild ascites. Aspirated fluid was clear and serous. IMPRESSION: US-guided paracentesis with 4.2L removed.
--- NOTE | 2025-04-05 12:08 | ECG ---
[facility] Test Date: 2025-04-01 Test Time: 07:26:32 Pat Name: JIAN GOULD Department: ER Room: 0288T A Gender: M [place] Aide: YIN : 1970 Requested By: JUN BRYANT Order Number: [id number] Reading MD: Yobani Subramanian Measurements Intervals [place] Rate: 102 P: 43 NH: 143 QRS: 17 QRSD: 83 T: -20 QT: 360 QTc: 469 Interpretive Statements Sinus tachycardia Inferior infarct, age indeterminate Electronically Signed On 04-07-2025 14:42:03 PDT by Yobani Subramanian Please click the below link to view image of tracing.
[2025-04-05 13:17] VITALS: BP 98/55; PULSE 78; RESP 18; TEMP 97.6; O2SAT 99
[2025-04-05 16:46] VITALS: BP 96/59; PULSE 80; RESP 18; TEMP 98.7; O2SAT 99
[2025-04-05] MEDS ORDERED: FURO1TAB31 PO (19:20)
--- NOTE | 2025-04-05 19:24 | DVHDS2 ---
Discharge Summary Date of Admission April 01, 2025 at 10:45 Date of Discharge: Apr 05, 2025 Labs/Diagnostic Data: Laboratory Results Test 04/02/25 07:19 04/01/25 17:25 04/01/25 14:20 04/01/25 11:00 White Blood Count 3.8 10^3/uL (4.4-10.8) Red Blood Count 3.33 10^6/uL (4.5-5.90) Hemoglobin 12.1 g/dL (13.5-17.5) Hematocrit 33.9 % (41.0-53.0) Mean Corpuscular Volume 101.9 fL (80.0-100.0) Mean Corpuscular Hemoglobin 36.4 pg (28.0-32.0) Mean Corpuscular Hemoglobin Concent 35.7 g/dL (32.0-36.0) Red Cell Distribution Width 13.9 % (11.8-14.3) Platelet Count 75 10^3/uL (140-450) Mean Platelet Volume 7.0 fL (6.9-10.8) Neutrophils (%) (Auto) % (37.0-80.0) Lymphocytes (%) (Auto) % (10.0-50.0) Monocytes (%) (Auto) % (0.0-12.0) Basophils (%) (Auto) % (0.0-2.0) Neutrophils # (Auto) 10 ^3/uL (1.6-8.6) Lymphocytes # (Auto) 10 ^3/uL (0.4-5.4) Monocytes # (Auto) 10 ^3/uL (0-1.3) Differential Total Cells Counted 100.0 (100) Neutrophils % (Manual) 57 (37.0-80.0) Band Neutrophils % (Manual) 3 Lymphocytes % (Manual) 21 (10.0-50.0) Monocytes % (Manual) 16 (0-12) Eosinophils % (Manual) 3 (0-7) Basophils % (Manual) 0 (0.0-2.0) Metamyelocytes % (manual) 0 Myelocytes % (Manual) 0 Promyelocytes % (Manual) 0 Blast Cells % (Manual) 0 Reactive Lymphocytes 0 Platelet Estimate Decreased Macrocytosis Slight Sodium Level 136 mmol/L (136-145) Potassium Level 3.7 mmol/L (3.5-5.1) Chloride Level 102 mmol/L (98-107) Carbon Dioxide Level 27 mmol/L (20-31) Anion Gap 7 (5-15) Blood Urea Nitrogen 11 mg/dL (9-23) Creatinine 1.01 mg/dL (0.700-1.30) Glomerular Filtration Rate Calc 89 mL/min (>90) BUN/Creatinine Ratio 10.9 (10.0-20.0) Serum Glucose 96 mg/dL (74-106) Calcium Level 8.5 mg/dL (8.7-10.4) Total Bilirubin 3.5 mg/dL (0.2-1.0) Aspartate Amino Transferase (AST) 45 U/L (13-40) Alanine Aminotransferase (ALT) 17 U/L (7-40) Alkaline Phosphatase 87 U/L (46-116) Total Protein 5.6 g/dL (5.7-8.2) Albumin 2.3 g/dL (3.2-4.8) Prothrombin Time 14.0 sec (9.3-11.8) Prothrombin Time INR 1.36 (0.9-1.15) Body Fluid Source Peritoneal fluid Body Fluid pH 8.0 Body Fluid WBC (Manual) 193 CUMM (0-200) Body Fluid RBC (Manual) 135 CUMM (0-2000) Body Fluid Mononuclear Cells 75 % Body Fluid Polymorphonuclear Cells 25 % (0-25) Body Fluid Glucose 126 mg/dL (.) Body Fluid Total Protein 2.0 g/dL (.) Body Fluid Lactate Dehydrogenase 59 IU/L (.) Ammonia 14 umol/L (11-32) Test 04/01/25 07:40 04/01/25 07:35 Urine Color Light-yellow (Yellow) Urine Clarity Clear (Clear) Urine pH 6.0 (5.0-9.0) Urine Specific [place] 1.004 (1.001-1.035) Urine Protein Negative (Negative) Urine Ketones Negative (Negative) Urine Blood Trace /uL (Negative) Urine Nitrite Negative (Negative) Urine Bilirubin Negative (Negative) Urine Urobilinogen 2 mg/dL (Negative) Urine Leukocyte Esterase Negative /uL (Negative) Urine RBC <1 /hpf (0 - 3) Urine Microscopic WBC /HPF (0-3) Urine Squamous Epithelial Cells Few /hpf (<5) Urine Bacteria None seen /hpf (None Seen) Urine Glucose Normal mg/dL (Normal) Eosinophils (%) (Auto) 4.8 % (0.0-7.0) Eosinophils # (Auto) 0.2 10 ^3/uL (0-0.8) Basophils # (Auto) 0 10 ^3/uL (0-0.2) Nucleated Red Blood Cells 0.2 % Magnesium Level 1.5 mg/dL (1.6-2.6) Lipase 48 U/L (12-53) Plasma/Serum Blood Alcohol 145.9 mg/dL (<10) Hepatitis A IgM Antibody Negative Hepatitis B Surface Antigen Negative (Negative) Hepatitis B Core IgM Antibody Negative (Negative) Hepatitis C Antibody Negative (Negative) Other Laboratory Tests 04/02/25 07:19 Brief Hx & Hospital Course: Final diagnoses: Liver cirrhosis with ascites Thrombocytopenia Hyponatremia Hyperbilirubinemia Hypoalbuminemia ETOH abuse Obesity Gastroesophageal varices History of hypertension History of kidney stones History of hernia repair History of anxiety History of depression s/p paracentesis x 2 He is doing well Asymptomatic now Would like to go home DC home Continue aldactone Add Lasix f/u w PCP [facility] Condition at Discharge: Stable Final Diagnosis/Problems List Liver cirrhosis with ascites Thrombocytopenia Hyponatremia Hyperbilirubinemia Hypoalbuminemia ETOH abuse Obesity Gastroesophageal varices History of hypertension History of kidney stones History of hernia repair History of anxiety History of depression Discharge Disposition: Home SNF Discharge Will this Physician continue t: No Discharge Instruct/Medications Diet: Cardiac 2g Na,low cholest Activity: No Restrictions, As Tolerated Follow Up/Referral: PCP [facility] Medications: Same home meds Add Lasix 40 mg qd Discharge Statement: "Patient was advised to return to the ER or call 911 if any headaches, dizziness, shortness of breath, chest pain, abdominal pain, bleeding, fevers, or worsening of medical condition. Patient was counseled about treatment plan, medications, possible side effects, patientverbalized understanding. All questions were answered to the best of my ability. This discharge took greater then 30 minutes in planning, reviewing documentation, counseling the patient, and discussing with other team members." ASSESSMENT ASSESSMENT Assessment Liver cirrhosis with ascites Thrombocytopenia Hyponatremia Hyperbilirubinemia Hypoalbuminemia ETOH abuse Obesity Gastroesophageal varices History of hypertension History of kidney stones History of hernia repair History of anxiety History of depression Date of Service: Apr 05, 2025 Billing Provider: JN ABRAHAM MD Common Visit Codes: [id number] DISCH DAY >30min JN ABRAHAM MD Apr 05, 2025 19:24
== END 2025-04-05 19:00 | disposition home or self-care (01) | DRG 280 ==
LOC: ER 06:43 → OVERFLOW 10:45 → TELE-WESTW 17:12
PROVIDERS: ADMIT Internal Medicine Geriatric Medicine; ATTEND Internal Medicine Geriatric Medicine
PROC: 0W9G3ZZ Drainage of Peritoneal Cavity, Percutaneous Approach (ICD-10-PCS; principal; 2025-04-01)
PROC: 0W9G3ZZ Drainage of Peritoneal Cavity, Percutaneous Approach (ICD-10-PCS; 2025-04-05)
DX: K70.30 Alcoholic cirrhosis of liver without ascites (principal); D69.6 Thrombocytopenia, unspecified; I85.10 Secondary esophageal varices without bleeding; E87.1 Hypo-osmolality and hyponatremia; E88.09 Other disorders of plasma-protein metabolism, not elsewhere classified; I86.4 Gastric varices; I10 Essential (primary) hypertension; F41.9 Anxiety disorder, unspecified; F32.A Depression, unspecified; K80.20 Calculus of gallbladder without cholecystitis without obstruction; E66.9 Obesity, unspecified; F17.200 Nicotine dependence, unspecified, uncomplicated; F10.20 Alcohol dependence, uncomplicated; Y90.9 Presence of alcohol in blood, level not specified; Z83.3 Family history of diabetes mellitus; Z87.442 Personal history of urinary calculi; Z80.9 Family history of malignant neoplasm, unspecified; Z68.28 Body mass index [BMI] 28.0-28.9, adult; Z79.899 Other long term (current) drug therapy
CPT/HCPCS: 36415; 49083; 71045; 74176; 76705; 76942; 80053; 80074; 80320; 81001; 82140; 83690; 83735; 83986; 85007; 85025; 85027; 85610; 87040; 87086; 87088; 87186; 87205; 89051; 93005; 99291; 99292; G0378; P9047

== ENCOUNTER 2025-04-11 13:15 | Inpatient (IN) | payer MEDICAID ==
[~2025-04-11] VITALS: Ht 165.1 cm; Wt 77.8 kg
[2025-04-11] MEDS: THIAMINE 100mg/ml INJ (200mg/2ml VIAL) IV ONE (07:30)
[2025-04-11] MEDS: PROPRANOLOL HCL 20 MG TAB PO SCH (07:30)
[2025-04-11] MEDS: FOLIC ACID 1 MG in D5W 5% 50 ML INJ ONE (07:30)
[2025-04-11] MEDS: PANTOPRAZOLE 40 MG/10 ML VIAL INJ IV ONE ×2 (07:30→14:31)
[2025-04-11] MEDS: FOLIC ACID 1 MG, MAGNESIUM SULF SDV 50% 8 MEQ, MULTIPLE VITAMIN 10 ML, THIAMINE INJ 100... INJ SCH (08:48)
[~2025-04-11 13:15] MED LIST changes: +FURO1TAB31 PO
[2025-04-11] MEDS ORDERED: PANT40T PO (13:40)
[2025-04-11] MEDS ORDERED: FURO40TA4 PO (13:40)
[2025-04-11] MEDS ORDERED: SODIUM CHLORIDE 0.9% 1,000 ML IV ONE (13:45)
--- NOTE | 2025-04-11 13:53 | ED.PDOC ---
GI ASSESSMENT HPI Comments 54 y.o male with PMHx of HTN, Liver cirrhosis, ascites, paracentesis, depression and anxiety, presents to the ED for a chief complaint of nausea, vomiting and diarrhea that started 4 days ago. Patient reports diarrhea went from loose to watery, presents with uncontrollable tremors and chills. Patient has a history of heavy ETOH use, last drink was this morning, states one small can of beer. Patient states he normally drinks about 6 cans of beer per day. Patient denies abdominal pain but states he has extreme discomfort from the nausea, vomiting and diarrhea. Patient has been seen at this ED multiple times for similar complaint, last visit was on April 01, 2025 and discharged on April 05, 2025. He denies any bloody stool, hematemesis, melena, fever, chills, chest pain, or SOB. Chief Complaint: Nausea/Vomiting Time Seen by MD: 13:36 Primary Care Provider: UNKNOWN Reviewed Notes: Nurses Notes, Medications, Allergies Allergies: Coded Allergies: NO KNOWN ALLERGIES (Unverified , 03/12/20) Home Meds Active Scripts Furosemide (Lasix) 40 Mg Tab, 40 MG PO DAILY for 30 Days, #30 TAB 3 Refills Prov:JN ABRAHAM MD 04/05/25 Bumetanide (Bumetanide) 1 Mg Tab, 1 TAB PO BID for 30 Days, #60 TAB 3 Refills Prov:KAYLAN MELVIN DO 02/21/25 Magnesium Oxide (MAGNESIUM OXIDE) 400 Mg Tab, 400 MG OR DAILY for 30 Days, #30 TAB Prov:PORSCHE CROWE RESIDENT 07/31/24 Potassium Chloride (Potassium Chloride ER) 20 Meq Tab, 20 MEQ PO DAILY for 30 Days, #30 TAB Prov:PORSCHE CROWE RESIDENT 07/31/24 Multiple Vitamin (Multivitamins) Tab, 1 TAB PO DAILY for 90 Days, #90 TAB 0 Refills Prov:ANUJ MULLIGAN ENGINEER SERGEANT 04/06/24 Sucralfate (CARAFATE) 1 Gm Tab, 1 GM OR QID for 30 Days, #120 TAB Prov:ANUJ MULLIGAN ENGINEER SERGEANT 04/06/24 Lisinopril (Lisinopril) 20 Mg Tab, 1 TAB PO DAILYPRN for 60 Days, #60 TAB Prov:ANUJ MULLIGAN ENGINEER SERGEANT 04/06/24 Propranolol HCl (Propranolol Hydrochloride) 20 Mg Tab, 1 TAB PO BID for 60 Days, #120 TAB Prov:ANUJ MULLIGAN ENGINEER SERGEANT 04/06/24 Reported Medications Pantoprazole Sodium Sesquihydr (Pantoprazole Sodium) 40 Mg Tab, 1 TAB PO BID 04/11/25 Furosemide (Furosemide) 40 Mg Tab, 1 TAB PO DAILY 04/11/25 Cholecalciferol (VITAMIN D3) 2,000 Unit Tab, 1 TAB PO DAILY for 90 Days, #90 02/03/25 Spironolactone (Spironolactone) 25 Mg Tab, 1 TAB PO DAILY for 30 Days, #30 02/03/25 Pantoprazole Sodium Sesquihydr (Protonix) 40 Mg Tab, 1 TAB PO BID for 30 Days, #60 02/02/25 Lactulose (Lactulose) 10 Gm/15 Ml [place], ML PO 11/25/24 Acamprosate Calcium (ACAMPROSATE CALCIUM DR) 333 Mg Tab, 333 MG PO QID, TAB 07/31/24 Folic Acid (Folic Acid) 1 Mg Tab, 1 MG PO DAILY, TAB 07/31/24 Thiamine Hcl (VITAMIN B-1) 100 Mg Tb, 1 TAB PO DAILY for 30 Days, #30 07/31/24 Information Source: Patient Mode of Arrival: Ambulatory Timing: Days (4) Duration: Since onset Quality: Other Vomitus: Hard Stool: Loose, Watery Severity: Moderate Recent: None Recent Hx of: None Pain Location: None Modifying Factors: Nothing Associated sign and symptoms: Nausea, Vomiting, Diarrhea Past Medical History PAST MEDICAL HISTORY: Anxiety, Depression, HTN, Kidney Stones, Liver Surgical History: Hernia Repair Family History Family History: Reviewed,noncontributory to illness, Family hx of Cancer Social History Smoker: Non-Smoker Alcohol: Heavy Drugs: Denies Drug Use Lives In: Home Constitutional: denies: chills, diaphoresis, fatigue, fever, malaise, sweats, weakness, others EENTM: denies: blurred vision, double vision, ear bleeding, ear discharge, ear drainage, ear pain, ear ringing, eye pain, eye redness, hearing loss, mouth pain, mouth swelling, nasal discharge, nose bleeding, nose congestion, nose whitney n, photophobia, tearing, throat pain, throat swelling, voice changes, others Respiratory: denies: cough, hemoptysis, orthopnea, SOB at rest, shortness of breath, SOB with excertion, stridor, wheezing, others Cardiovascular: denies: chest pain, dizzy spells, diaphoresis, Dyspnea on exertion, edema, irregular heart beat, left arm pain, lightheadedness, palpitations, PND, syncope, others Gastrointestinal: reports: abdominal pain, diarrhea, nausea, vomiting; denies: abdomen distended, blood streaked bowels, constipated, dysphagia, difficulty swallowing, hematemesis, melena, poor appetite, poor fluid intake, rectal bleeding, rectal pain, others Genitourinary: denies: burning, dysuria, flank pain, frequency, hematuria, i ncontinence, penile discharge, penile sore, pain, testicle pain, testicle swelling, urgency, others Neurological: denies: dizziness, fainting, headache, left sided numbness, left sided weakness, numbness, paresthesia, pre-existing deficit, right sided numbness, right sided weakness, seizure, speech problems, tingling, tremors, weakness, others Musculoskeletal: denies: back pain, gout, joint pain, joint swelling, muscle pain, muscle stiffness, neck pain, others Integumetry: denies: bruises, change in color, change in hair/nails, dryness, laceration, lesions, lumps, rash, wounds, others Allergic/Immunocompromised: denies: Difficulty Healing, Frequent Infections, Hives, Itching, others Hematologic/Lymphatic: denies: anemia, blood clots, easy bleeding, easy bruising, swollen glands, others Endocrine: denies: excessive hunger, excessive sweating, excessive thirst, excessive urination, flushing, intolerance to cold, intolerance to heat, unexplained weight gain, unexplained weight loss, others Psychiatric: denies: anxiety, bipolar disorder, depression, hopeless, panic disorder, schizophrenia, sleepless, suicidal, others All Other Systems: Reviewed and Negative Physical Exam General Appearance: Mild Distress HEENT: Other (Pupils and face symmetric. Moist mucous membranes.) Neck: Full Range of Motion, Normal Inspection Respiratory: Decreased Breath Sounds, No Accessory Muscle Use, No Respiratory Distress Cardiovascular: No JVD, Tachycardia Breast Exam: Deferred Gastrointestinal: Diffuse, Distended, Non Tender, Soft, Other (Actively vomiting) Genitalia: Deferred Pelvic: Deferred Rectal: Deferred Extremities: Normal inspection, Normal range of motion, Non-tender Neurologic: Alert (Oriented x4), Normal Affect, Normal Mood, Other (Tremulous) Cerebellar Function: Tremor Reflexes: NOT DONE Skin: Dry, Normal Color, Warm Lymphatic: NOT DONE Was a procedure done? Was a procedure done?: No GI differential Dx Differential Diagnosis: Diverticular disease, Gastritis/PUD, Gastroenteritis, Hepatitis, Inflammatory BD, Ischemic Bowel, Pancreatitis, UTI, Dehydration, Drug toxicity, Electrolyte Imbalance, Food Poisoning, Bacterial, Viral, Hypovolemia, Renal Failure Other Differential Diagnosis Alcohol withdrawal X-Ray, Labs, Meds, VS Vital Signs Date Time Temp Pulse Resp B/P (MAP) Pulse Ox O2 Delivery O2 Flow Rate FiO2 04/11/25 19:00 100 22 122/78 (93) 97 04/11/25 17:00 102 22 125/83 (97) 97 04/11/25 15:05 100.0 98 22 119/83 (95) 97 100.0 04/11/25 15:04 98 16 118/93 04/11/25 14:32 96 18 152/104 04/11/25 13:33 100.0 112 22 168/91 (116) 98 100.0 Lab Test 04/11/25 19:25 04/11/25 16:32 04/11/25 14:31 Range/Units Urine Color Pending Urine Clarity Pending Urine pH Pending Urine Specific [place] Pending Urine Protein Pending Urine Ketones Pending Urine Blood Pending Urine Nitrite Pending Urine Bilirubin Pending Urine Urobilinogen Pending Urine Leukocyte Esterase Pending Urine RBC Pending Urine Microscopic WBC Pending Urine Squamous Epithelial Cells Pending Urine Bacteria Pending Urine Glucose Pending Lactic Acid Level 1.9 2.8 *H 0.4-2.0 mmol/L White Blood Count 5.6 4.4-10.8 10^3/uL Red Blood Count 4.06 L 4.5-5.90 10^6/uL Hemoglobin 14.6 13.5-17.5 g/dL Hematocrit 40.7 L 41.0-53.0 % Mean Corpuscular Volume 100.2 H 80.0-100.0 fL Mean Corpuscular Hemoglobin 35.9 H 28.0-32.0 pg Mean Corpuscular Hemoglobin Concent 35.9 32.0-36.0 g/dL Red Cell Distribution Width 13.9 11.8-14.3 % Platelet Count 159 140-450 10^3/uL Mean Platelet Volume 6.9 6.9-10.8 fL Neutrophils (%) (Auto) 37.0-80.0 % Lymphocytes (%) (Auto) 10.0-50.0 % Monocytes (%) (Auto) 0.0-12.0 % Basophils (%) (Auto) 0.0-2.0 % Neutrophils # (Auto) 1.6-8.6 10 ^3/uL Lymphocytes # (Auto) 0.4-5.4 10 ^3/uL Monocytes # (Auto) 0-1.3 10 ^3/uL Differential Total Cells Counted 100.0 100 Neutrophils % (Manual) 67 37.0-80.0 Band Neutrophils % (Manual) 1 Lymphocytes % (Manual) 22 10.0-50.0 Monocytes % (Manual) 6 0-12 Eosinophils % (Manual) 4 0-7 Basophils % (Manual) 0 0.0-2.0 Metamyelocytes % (manual) 0 Myelocytes % (Manual) 0 Promyelocytes % (Manual) 0 Blast Cells % (Manual) 0 Reactive Lymphocytes 0 Platelet Estimate Adequate Sodium Level 129 L 136-145 mmol/L Potassium Level 3.1 L 3.5-5.1 mmol/L Chloride Level 97 L 98-107 mmol/L Carbon Dioxide Level 22 20-31 mmol/L Anion Gap 10 5-15 Blood Urea Nitrogen 9 9-23 mg/dL Creatinine 0.88 0.700-1.30 mg/dL Glomerular Filtration Rate Calc 103 >90 mL/min BUN/Creatinine Ratio 10.2 10.0-20.0 Serum Glucose 121 H 74-106 mg/dL Calcium Level 7.9 L 8.7-10.4 mg/dL Total Bilirubin 2.3 H 0.2-1.0 mg/dL Aspartate Amino Transferase (AST) 68 H 13-40 U/L Alanine Aminotransferase (ALT) 28 7-40 U/L Alkaline Phosphatase 121 H 46-116 U/L Ammonia 31 11-32 umol/L Total Protein 7.1 5.7-8.2 g/dL Albumin 2.9 L 3.2-4.8 g/dL Lipase 55 H 12-53 U/L Current Medications Medications (Trade) Dose Ordered Sig/Adama Route Start Time Stop Time Status Last Admin Morphine Sulfate 4 mg ONCE ONCE IV 04/11/25 13:45 04/11/25 13:47 DC 04/11/25 14:32 Ondansetron HCl (Zofran) 4 mg ONCE ONCE IV 04/11/25 13:45 04/11/25 13:47 DC 04/11/25 14:32 Pantoprazole Sodium (Protonix) 40 mg ONCE ONCE IV 04/11/25 13:45 04/11/25 13:47 DC 04/11/25 14:31 Piperacillin Sod/ Tazobactam Sod 100 ml @ 100 mls/hr ONCE ONCE IV 04/11/25 13:45 04/11/25 14:44 DC 04/11/25 14:32 Lorazepam (Ativan Inj) 1 mg ONCE ONCE IV 04/11/25 13:45 04/11/25 13:47 DC 04/11/25 14:31 Sodium Chloride 500 ml @ 500 mls/hr Q1H ONCE IV 04/11/25 14:00 04/11/25 14:59 DC 04/11/25 14:32 Vancomycin HCl 250 ml @ 250 mls/hr Q1H IV 04/11/25 16:45 04/11/25 18:44 DC 04/11/25 17:49 PROCEDURE(s): ABPL - CT AB PEL WO CON-NO ORAL OR IV REASON: abd pain n/v/d ORDER NUMBER(s): [id number], ACCESSION NUMBER(s): [id number] CT CT AB PEL WO CON-NO ORAL OR IV INDICATION: abd pain n/v/d EXAM DATE: 04/11/2025 01:51 PM COMPARISON: CT CT AB PEL WO CON-NO ORAL OR IV on DOS: 04/01/25, CT CT AB PEL WO CON-NO ORAL OR IV on DOS: 02/18/25, CT CT AB PEL WO CON-NO ORAL OR IV on DOS: 02/02/25 RADIATION DOSE: CTDIvol: 15.97 mGy, DLP: 945.51 mGy*cm PROCEDURE: Helical CT images were obtained of the abdomen and pelvis without IV contrast Sagittal and coronal reconstructions are provided. ORAL CONTRAST: None. ADDITIONAL IMAGES / REFORMATS: None All CT scans at this medical facility are performed using dose modulation techniques as appropriate to a performed exam including the following: Automated exposure control was utilized; adjustment of the MA and/or KV according to patient size; and use of iterative reconstruction technique. FINDINGS: LUNG BASE: Normal. LIVER: Cirrhosis with esophageal varices. GALLBLADDER AND BILIARY TREE: No calcified gallstones. Normal caliber wall. No intra- or extrahepatic biliary ductal dilation. PANCREAS: Normal. SPLEEN: Normal. BOWEL: Portal hypertensive enteropathy. ADRENALS: Normal. KIDNEYS AND URETER: Normal. BLADDER: Normal. REPRODUCTIVE ORGANS: Normal. LYMPH NODES:No lymphadenopathy. PERITONEUM: Moderate ascites. VESSELS: Scattered atherosclerotic calcifications are noted. RETROPERITONEUM: Normal. ABDOMINAL WALL: Fluid filled ventral hernia. BONES: Scattered osseous degenerative changes are noted. IMPRESSION: Cirrhosis with esophageal varices. Moderate ascites. Portal hypertensive enteropathy. X-Ray, Labs, Meds, VS Comment 54 y.o male with PMHx of HTN, Liver cirrhosis, ascites, paracentesis, depression and anxiety presents with nausea, vomiting, diarrhea and tremor Vitals remarkable for temperature 100, heart rate 112, respiratory rate 22, BP 168/91 Exam remarkable for tachycardia, nontender moderately distended abdomen, active vomiting and tremor Rhythm strip independently interpreted by me: Sinus rhythm rate 112, no ectopy. CT abdomen and pelvis IMPRESSION: Cirrhosis with esophageal varices. Moderate ascites. Portal hypertensive enteropathy. CBC unremarkable, metabolic panel remarkable for sodium 129, potassium 3.1, chloride 97, elevated AST, total bili and alkaline phos, lipase 55, lactate 2.8, normal ammonia level, UA pending Patient treated with the following in the ED: 1.5 L 0.9 normal saline IV bolus, morphine 4 mg IV, Zofran 4 mg IV, Protonix 40 mg IV, Zosyn 4.5 g IV, vancomycin IV per pharmacy, Ativan 1 mg IV, effervescent potassium 50 mEq p.o., Librium 50 mEq p.o. On re-evaluation, patient is no longer vomiting or tachycardic. Vitals are stable. Patient does not appear septic at this time. Tachycardia and increased respiratory rate are likely due to alcohol withdrawal and/or electrolyte imbalance/dehydration. Plan is to admit the patient for treatment of early alcohol withdrawal, IV hydration, electrolyte correction. Time of 1ST Reevaluation: 14:00 Reevaluation 1ST: Unchanged Patient Education/Counseling: Diagnosis, Treatment Family Education/Counseling: No Family Present Sepsis Sepsis Reasesment Focused Exam Orders: Laboratory Tests 04/11/25 14:31: Lactic Acid Level 2.8 04/11/25 16:32: Lactic Acid Level 1.9 Recent Procedure: No On Antibiotic Therapy: No Respiratory Rate >20: Yes Heart Rate >90: Yes Temp<36 C (96.8 F) or >38.3 C: No SBP <90 or MAP <65 mmHG: No New Acute Mental Status Change: No Is the patient on CPAP, BIPAP,: No IV fluid given: Yes Departure 1 Departure Time of Disposition: 16:00 Impression: Primary Impression: Nausea vomiting and diarrhea Additional Impressions: Electrolyte imbalance Alcohol withdrawal Qualified Codes: F10.939 - Alcohol use, unspecified with withdrawal, unspecified Disposition: ADMITTED INPATIENT Admit to: Med Surg Condition: Fair Critical Care Note Critical Care Time?: No Stability Stability form required: No I personally scribed for CLAUDIA BRUNER MD ([email or web address]) on 04/11/25 at 13:53. Electronically submitted by Kim Marina ([facility]). I personally scribed for CLAUDIA BRUNER MD ([email or web address]) on 04/11/25 at 15:38. Electronically submitted by Kim Marina ([facility]). CLAUDIA BRUNER MD Apr 11, 2025 13:53
[2025-04-11] MEDS: LORazepam 2MG/ML-1ML VIAL IV ONE ×2 (14:31→21:15)
[2025-04-11] MEDS: ONDANSETRON HCL 4 MG/2 ML VIAL IV ONE (14:32)
[2025-04-11] MEDS: PIPERACILLIN-TAZO 4.5GM 100 ML IV ONE (14:32)
[2025-04-11] MEDS: SODIUM CHLORIDE 0.9% 500 ML IV ONE (14:32)
[2025-04-11] MEDS: MORPHINE SULFATE 4 MG/ML SYR/VIAL IV ONE (14:32)
--- NOTE | 2025-04-11 14:35 | DVH ---
CT CT AB PEL WO CON-NO ORAL OR IV INDICATION: abd pain n/v/d EXAM DATE: 04/11/2025 01:51 PM COMPARISON: CT CT AB PEL WO CON-NO ORAL OR IV on DOS: 04/01/25, CT CT AB PEL WO CON-NO ORAL OR IV on D OS: 02/18/25, CT CT AB PEL WO CON-NO ORAL OR IV on DOS: 02/02/25 RADIATION DOSE: CTDIvol: 15.97 mGy, DLP: 945.51 mGy*cm PROCEDURE: Helical CT images were obtained of the abdomen and pelvis without IV contrast Sagittal and coronal reconstructions are provided. ORAL CONTRAST: None. ADDITIONAL IMAGES / REFORMATS: None All C T scans at this medical facility are performed using dose modulation techniques as appropriate to a p erformed exam including the following: Automated exposure control was utilized; adjustment of the MA and/or KV according to patient size; and use of iterative reconstruction technique. FINDINGS: LUNG BASE: Normal. LIVER: Cirrhosis with esophageal varices. GALLBLADDER AND BILIARY TREE: No calcified gallstones. Normal caliber wall. No intra- or extrahepatic biliary ductal dilation. PANCREAS: Normal. SPLEEN: Normal. BOWEL: Portal hypertensive enteropathy. ADRENALS: Normal. KIDNEYS AND URETER: Normal. BLADDER: Normal. REPRODUCTIVE ORGANS: Normal. LYMPH NODES:No lymphadenopathy. PERITONEUM: Moderate ascites. VESSELS: Scattered atherosclerotic calcifications are noted. RETROPERITONEUM: Normal. ABDOMINAL WALL: Fluid filled ventral hernia. BONES: Scattered osseous degenerative changes are noted. IMPRESSION: Cirrhosis with esophageal varices. Moderate ascites. Portal hypertensive enteropathy.
[2025-04-11 14:38] LABS: Hematocrit 40.7 % (41.0-53.0); Hemoglobin 14.6 g/dL (13.5-17.5); Mean Corpuscular Hemoglobin 35.9 pg (28.0-32.0); Mean Corpuscular Hgb Conc. 35.9 g/dL (32.0-36.0); Mean Corpuscular Volume 100.2 fL (80.0-100.0); Platelet Count (auto) 159 10^3/uL (140-450); Red Blood Cells 4.06 10^6/uL (4.5-5.90); Red Cell Distribution Width 13.9 % (11.8-14.3); White Blood Cell 5.6 10^3/uL (4.4-10.8)
[2025-04-11 14:40] LABS: Basophils % (manual) 0 (0.0-2.0); Blast Cells 0; Metamyelocytes % 0; Myelocytes % 0; Promyelocytes % 0; Reactive Lymphocytes 0
[2025-04-11 14:57] LABS: Alanine Aminotransferase 28 U/L (7-40); Anion Gap 10 (5-15); BUN/Creatinine Ratio 10.2 (10.0-20.0); Carbon Dioxide 22 mmol/L (20-31); Total Protein 7.1 g/dL (5.7-8.2)
[2025-04-11 15:02] LABS: Band Neutrophils % (manual) 1; Eosinophils % (manual) 4 (0-7); Lymphocytes % (manual) 22 (10.0-50.0); Monocytes % (manual) 6 (0-12); Platelet Estimate Adequate
[2025-04-11 15:13] LABS: Lactic Acid w/Reflex 2.8 mmol/L (0.4-2.0)
[2025-04-11 15:16] LABS: Albumin 2.9 g/dL (3.2-4.8); Alkaline Phosphatase 121 U/L (46-116); Bilirubin, Total 2.3 mg/dL (0.2-1.0); Blood Urea Nitrogen 9 mg/dL (9-23); Calcium 7.9 mg/dL (8.7-10.4); Chloride 97 mmol/L (98-107); Glucose 121 mg/dL (74-106); Lipase 55 U/L (12-53); Potassium 3.1 mmol/L (3.5-5.1); Sodium 129 mmol/L (136-145)
[2025-04-11 15:28] LABS: Aspartate Aminotransferase 68 U/L (13-40)
[2025-04-11] MEDS: VANCOMYCIN PER PHARMACY 0 MG IV SCH (16:57)
[2025-04-11] MEDS: VANCOMYCIN 1GM/200ML PM 250 ML IV SCH (17:03)
[2025-04-11 19:38] LABS: Urine Bacteria None Seen /hpf (None Seen)
[2025-04-11 19:48] LABS: Urine Blood 1+ /uL (Negative); Urine Clarity Clear (Clear); Urine Color Yellow (Yellow); Urine Protein, UAD Negative (Negative); Urine Specific Gravity 1.021 (1.001-1.035); Urine Squamous Epithelial Cell FEW /hpf (<5); Urine Urobilinogen Normal (Negative); Urine WBC 1 /HPF (0-3); Urine pH 5.5 (5.0-9.0)
[2025-04-11] MEDS ORDERED: DOCUSATE SOD 100 MG CAP PO PRN (20:30)
[2025-04-11] MEDS ORDERED: NITROGLYCERIN 0.4 MG SL TAB SL PRN (20:30)
[2025-04-11] MEDS ORDERED: ONDANSETRON HCL 4 MG/2 ML VIAL IV PRN (20:30)
[2025-04-11] MEDS: chlordiazePOXIDE HCL 25 MG CAP PO ONE (20:37)
[2025-04-11] MEDS ORDERED: MORPHINE SULFATE 4 MG/ML SYR/VIAL IV PRN ×2 (21:00)
[2025-04-11 21:13] LABS: Benzodiazephine Screen, Urine Neg (NEGATIVE); Opiate Scree,Urine Pos (NEGATIVE)
[2025-04-11] MEDS: LORazepam 2MG/ML-1ML VIAL IV SCH (21:15)
[2025-04-11 21:50] LABS: INR 1.24 (0.9-1.15); Prothrombin Time 12.9 sec (9.3-11.8)
[2025-04-11 21:50] LABS: Amphetamine Screen, Urine Neg (NEGATIVE); Barbiturate Scree,Urine Neg (NEGATIVE); Cannabinoid Screen, Urine Neg (NEGATIVE); Cocaine Screen, Urine Neg (NEGATIVE); Phencyclidine Screen, Urine Neg (NEGATIVE)
--- NOTE | 2025-04-11 21:54 | DVH ---
ULTRASOUND DOPPLER CLINICAL HISTORY: rule out hepatobiliary pathology TECHNIQUE: Sonographic examination of the abdomen was performed. COMPARISON: US ABDOMEN LIMITED on DOS: 04/04/25, US ABDOMEN LIMITED on DOS: 02/02/25, US ABDOMEN LIMITED on DOS: 01/05/25 Findings/ IMPRESSION: Liver measures 12 cm with coarse echotexture portal vein demonstrates hepatopetal flow. Gallbladder demonstrates multiple mobile stones with negative sonographic reece's sign and no pericholecystic fr ee fluid. Mild gallbladder wall thickening. Common bile duct not visualized on this study. Pancreas i s obscured due to overlying bowel gas. Right kidney measures 8.6 cm craniocaudal. Left kidney measur es 9.7 cm craniocaudal. No evidence of renal stones or hydronephrosis. Fluid seen in all 4 quadrants of the abdomen. Overall findings equivocal for acute cholecystitis. Recommend further evaluation wit h HIDA scan or MRCP if clinically indicated. Atrophic liver with coarse echotexture concerning for li jon disease.
[2025-04-11] MEDS ORDERED: VANCOMYCIN PER PHARMACY 0 MG IV SCH ×2 (22:00)
[2025-04-11] MEDS: SUCRALFATE 1 GM/10 ML ORAL SUSP PO SCH (22:00)
--- NOTE | 2025-04-11 22:19 | DVHHPRES ---
History of Present Illness Resident Creating Document: TONY DEVLIN RESIDENT History of Present Illness Mr. Deejay Calvo, A 54-year-old male with a history of hypertension, chronic alcohol use, liver cirrhosis with ascites, recurrent paracentesis, anxiety and depression arrived ambulatory after experiencing four days of moderate nausea, vomiting (hard), and loose, watery diarrhea, with no recent history, pain, or modifying factors, 2/10 generalized abdominal pain, Nonblood vomiting, watery diarrhea, chills, and tremors, reporting his last alcohol intake (1 beer) was earlier today, though he typically consumes six daily. The differential diagnosis includes diverticular disease, gastritis or peptic ulcer disease, gastroenteritis, hepatitis, ischemic bowel, pancreatitis, urinary tract infection, dehydration, drug toxicity, electrolyte imbalance, food poisoning, bacterial or viral GI infections, hypovolemia, Spontaneous Bacterial Peritonitis (SBP) and alcohol withdrawal. The patient has had multiple ED visits and inpatient admissions for similar complaints, most recently from April 01 to April 05, 2025; he denies bloody stool, hematemesis, melena, fever, chills, chest pain, or shortness of breath, and has poor healthcare follow-up with no established PCP. Past Medical History Anxiety, Depression, HTN, Kidney Stones, Liver Cirrhosis with esophageal varices. Moderate ascites. Portal hypertensive enteropathy Past Surgical History Hernia Repair Family History: Other (Reviewed,noncontributory to illness, Family hx of Cancer) Smoke: No ALCOHOL: heavy Drugs: None Lives: with Family (at home ) Domestic Violence: Neg Review of Systems Constitutional: Yes: Malaise; No: Fever, Chills, Sweats, Weakness, Other Eyes: No: Pain, Vision change, Conjunctivae inflammation, Eyelid inflammation, Other, Redness ENT: No: Ear pain, Ear discharge, Nose pain, Nose discharge, Nose congestion, Mouth pain, Mouth swelling, Throat pain, Throat swelling, Other Respiratory: No: Cough, Dry, Shortness of breath, SOB with excertion, Wheezing, Hemoptysis, Pleuritic Pain, Sputum, Wheezing, Other Cardiovascular: No: Chest Pain, Palpitations, Orthopnea, Paroxysmal Noc. Dyspnea, Edema, Lt Headedness, Other Gastrointestinal: Nausea, Vomiting, Abdominal Pain, Diarrhea; No: Constipation, Melena, Hematochezia, Other Genitourinary: No Dysuria, No Frequency, No Incontinence, No Hematuria, No Retention, No Other Musculoskeletal: No: other, neck pain, shoulder pain, arm pain, back pain, hand pain, leg pain, foot pain Skin: No: Rash, Lesions, Jaundice, Bruising, Other Neurological: No: Weakness, Numbness, Incoordination, Change in speech, Confusion, Seizures, Other Allergies: Coded Allergies: NO KNOWN ALLERGIES (Unverified , 03/12/20) Medications Current Medications Medications Dose Ordered Sig/Adama Route Start Time Stop Time Status Last Admin Dose Admin Vancomycin HCl 0 ml @ 0 mls/hr UD IV 04/11/25 13:45 Ondansetron HCl 4 mg Q4HP PRN IV 04/11/25 20:30 Docusate Sodium 100 mg BIDPRN PRN PO 04/11/25 20:30 Morphine Sulfate 2 mg Q4HPRN PRN IV 04/11/25 21:00 Nitroglycerin 0.4 mg Q5MINP PRN SL 04/11/25 20:30 Morphine Sulfate 2 mg Q30M PRN IV 04/11/25 21:00 Piperacillin Sod/ Tazobactam Sod 100 ml @ 25 mls/hr Q6HR IV 04/12/25 00:00 Pantoprazole Sodium 40 mg DAILY IV 04/12/25 10:00 Thiamine HCl 100 mg DAILY PO 04/12/25 10:00 Folic Acid 1 mg DAILY PO 04/12/25 10:00 Multivitamins 1 tab DAILY PO 04/12/25 10:00 Lorazepam 1 mg Q4H IV 04/11/25 21:15 Folic Acid 1 mg/ Magnesium Sulfate 8 meq/ Multivitamins 10 ml/Thiamine HCl 100 mg/Sodium Chloride 1,013.2 ml @ 126.247 mls/hr DAILY INJ 04/11/25 21:15 04/12/25 23:55 Vancomycin HCl 0 ml @ 0 mls/hr UD IV 04/11/25 22:00 UNV Exam Vital Signs Vital Signs Date Time Temp Pulse Resp B/P (MAP) Pulse Ox O2 Delivery O2 Flow Rate FiO2 04/11/25 19:00 100 22 122/78 (93) 97 04/11/25 15:05 100.0 100.0 General Appearance: Alert, Oriented X3, Cooperative, moderate distress HEENT: Atraumatic, PERRLA, EOMI, Mucous membr. moist/pink Respiratory: Clear to auscultation, Normal air movement Cardiovascular: Regular rate, Normal S1, Normal S2, No murmurs, Other (tachycardic) Abdominal: Normal bowel sounds, Soft, Other (generalized tenderness. no guarding, fluctuation, flank full. ) Extremities: No clubbing, No cyanosis, No edema, Normal pulses, No tenderness/swelling Skin: No rashes, No breakdown, No significant lesion Neuro: Strength at 5/5 X4 ext, Normal tone, Sensation intact, Cranial nerves 3- 12 NL, Reflexes 2+, Other (fine tremor b/l upper limb ) Psych/Mental Status: Mental status NL, Mood NL, Other (no homicidal or suicidal ideation) Labs/Xrays Labs Test 04/11/25 21:10 04/11/25 19:25 04/11/25 16:32 04/11/25 14:31 Range/Units Prothrombin Time 12.9 H 9.3-11.8 sec Prothrombin Time INR 1.24 H 0.9-1.15 Urine Color Yellow Yellow Urine Clarity Clear Clear Urine pH 5.5 5.0-9.0 Urine Specific [place] 1.021 1.001-1.035 Urine Protein Negative Negative Urine Ketones Negative Negative Urine Blood 1+ H Negative /uL Urine Nitrite Negative Negative Urine Bilirubin Negative Negative Urine Urobilinogen Normal Negative mg/dL Urine Leukocyte Esterase Negative Negative /uL Urine RBC 4 0 - 3 /hpf Urine Microscopic WBC 1 0-3 /HPF Urine Squamous Epithelial Cells Few <5 /hpf Urine Bacteria None seen None Seen /hpf Urine Glucose Normal Normal mg/dL Urine Opiates Screen Pos NEGATIVE Urine Fentanyl Screen Neg NEGATIVE Urine Barbiturates Screen Neg NEGATIVE Urine Phencyclidine Screen Neg NEGATIVE Urine Amphetamines Screen Neg NEGATIVE Urine Benzodiazepines Screen Neg NEGATIVE Urine Cocaine Screen Neg NEGATIVE Urine Cannabinoids Screen Neg NEGATIVE Lactic Acid Level 1.9 0.4-2.0 mmol/L White Blood Count 5.6 4.4-10.8 10^3/uL Red Blood Count 4.06 L 4.5-5.90 10^6/uL Hemoglobin 14.6 13.5-17.5 g/dL Hematocrit 40.7 L 41.0-53.0 % Mean Corpuscular Volume 100.2 H 80.0-100.0 fL Mean Corpuscular Hemoglobin 35.9 H 28.0-32.0 pg Mean Corpuscular Hemoglobin Concent 35.9 32.0-36.0 g/dL Red Cell Distribution Width 13.9 11.8-14.3 % Platelet Count 159 140-450 10^3/uL Mean Platelet Volume 6.9 6.9-10.8 fL Neutrophils (%) (Auto) 37.0-80.0 % Lymphocytes (%) (Auto) 10.0-50.0 % Monocytes (%) (Auto) 0.0-12.0 % Basophils (%) (Auto) 0.0-2.0 % Neutrophils # (Auto) 1.6-8.6 10 ^3/uL Lymphocytes # (Auto) 0.4-5.4 10 ^3/uL Monocytes # (Auto) 0-1.3 10 ^3/uL Differential Total Cells Counted 100.0 100 Neutrophils % (Manual) 67 37.0-80.0 Band Neutrophils % (Manual) 1 Lymphocytes % (Manual) 22 10.0-50.0 Monocytes % (Manual) 6 0-12 Eosinophils % (Manual) 4 0-7 Basophils % (Manual) 0 0.0-2.0 Metamyelocytes % (manual) 0 Myelocytes % (Manual) 0 Promyelocytes % (Manual) 0 Blast Cells % (Manual) 0 Reactive Lymphocytes 0 Platelet Estimate Adequate Sodium Level 129 L 136-145 mmol/L Potassium Level 3.1 L 3.5-5.1 mmol/L Chloride Level 97 L 98-107 mmol/L Carbon Dioxide Level 22 20-31 mmol/L Anion Gap 10 5-15 Blood Urea Nitrogen 9 9-23 mg/dL Creatinine 0.88 0.700-1.30 mg/dL Glomerular Filtration Rate Calc 103 >90 mL/min BUN/Creatinine Ratio 10.2 10.0-20.0 Serum Glucose 121 H 74-106 mg/dL Calcium Level 7.9 L 8.7-10.4 mg/dL Magnesium Level 1.4 L 1.6-2.6 mg/dL Total Bilirubin 2.3 H 0.2-1.0 mg/dL Aspartate Amino Transferase (AST) 68 H 13-40 U/L Alanine Aminotransferase (ALT) 28 7-40 U/L Alkaline Phosphatase 121 H 46-116 U/L Ammonia 31 11-32 umol/L Total Protein 7.1 5.7-8.2 g/dL Albumin 2.9 L 3.2-4.8 g/dL Lipase 55 H 12-53 U/L Thyroid Stimulating Hormone (TSH) 4.95 H 0.55-4.78 uIU/mL Plasma/Serum Blood Alcohol 39.0 H <10 mg/dL Assessment/Plan Assessment/Plan Assessment: # Portal hypertensive enteropathy # Cholelithiasis # Cholecystitis not yet ruled out # possible spontaneous bacterial peritonitis, gram negatives/ Gram-positive/ and with anaerobes # SIRS response/ sepsis likely due to above # severe sepsis with lactic acidosis , lactic acid is trending down. # likely gastroenteritis # dehydration, secondary to GI fluid loss. # Hepatitis A history # Ascites # Alcohol abuse # Mild hyponatremia, hypervolemic # mild hypokalemia # hyperbilirubinemia # hypoalbuminemia # hypo-magnesemia # gastroesophageal varices # history of hypertension # history of kidney stones # history of hernia repair # history of anxiety # history of depression # recurrent paracentesis # Macrocytic anemia # mild transaminitis Likely due to alcohol with to 2 to 1 pattern # medical nonadherence # Alcohol intoxication # High risk of refeeding syndrome Plan: # Daily CBC & CMP. Blood culture, stool workup pending. check for stool occult blood. # Given recurrent paracentesis with possible SBP and sepsis with lactic acidosis we will cover broadly with Zosyn and vancomycin for g negatives, g positives and anaerobes. # Therapeutic and/or diagnostic paracentesis to be done. # Careful hydration, if 3rd spacing consider increasing serum albumin given a liver cirrhosis and hypoalbuminemia. # Alcohol cessation counseling done at bedside. # Last alcohol this morning. CIWA score, close monitoring with IV Ativan as needed. # IV ppi to continue for now H&H stable, no active bleeding noted. Sucralfate 1 g q.i.d.. # High-risk of electrolyte disturbances, close monitoring of electrolytes and careful correction. # Poor nutrition high-risk of refeeding syndrome, close monitoring. # Continue other home medications as tolerated. # RUQ ultrasound to check hepatobiliary pathology/ venous thrombosis. # NPO for now, patient is vomiting, as needed Zofran. Check EKG for baseline. Continue telemetry monitoring. # Replenish potassium with oral potassium. # We will hold lactulose for now given active diarrhea But given portal hypertensive enteropathy we will continue 20 b.i.d. of propranolol For nonselective beta blockade. # Further workup for macrocytosis and replenish appropriately. # Avoidance strictly of NSAIDs and Alcohol , given liver disease limit Tylenol use. # Holding antihypertensives given comparatively softer blood pressure with active sepsis and possible underlying infection. # Close follow up with the GI team/ hepatology. # social work consult for the patient to have a plan with alcohol cessation. # Needs close follow up [facility] Code status: Full code, goals of care discussion took 37 minutes total along with the care plan. Patient admitted in patient telemetry for further workup and management. Patient is agreeable to the plan. Discussed with Dr. Huntley. Plan discussed with: Patient My Orders Orders - TONY DEVLIN RESIDENT Procedure Category Date Status Time Admit ADMIT 04/11/25 Transmitted 20:21 Allergies JOSE 04/11/25 In Process 20:21 Code Status CODE 04/11/25 Transmitted 20:21 Ondansetron Hcl PHA 04/11/25 In Process (Zofran) 20:30 Docusate Sodium PHA 04/11/25 In Process Capsule (Colace 20:30 Complete Blood Count LAB 04/12/25 Verified 04:00 Comprehensive LAB 04/12/25 Verified Metabolic Panel 04:00 Npo (Nothing By DIET 04/12/25 Transmitted Mouth) Diet Breakfast Condition: Serious JOSE 04/11/25 In Process 20:21 Sequential JOSE 04/11/25 In Process Compression Device Nitroglycerin PHA 04/11/25 In Process Sublingual (Ntrostat 20:30 Oxygen By Nasal RT 04/11/25 Transmitted Cannula 20:21 Stat Ekg For Chest JOSE 04/11/25 In Process Pain 20:21 Notify Md Of Changes JOSE 04/11/25 In Process From Base 20:21 Interactive Media Marketing Director For JOSE 04/11/25 In Process 24 Hours 20:21 Emergency Dysrhythmia JOSE 04/11/25 In Process Protocol 20:21 Rhythm Strips Once JOSE 04/11/25 In Process Every Shift 20:21 Morphine Sulfate PHA 04/11/25 In Process Injection 21:00 Morphine Sulfate PHA 04/11/25 In Process Injection 21:00 LIVER US 04/11/25 Resulted 20:39 Piperacillin-Tazob PHA 04/12/25 In Process 3.375gm (Zosyn 3.375g 00:00 Vitamin B12 LAB 04/11/25 In Process 20:57 Folate (Folic Acid) LAB 04/11/25 In Process 20:57 Stool Occult Blood LAB 04/11/25 Logged 20:57 Pantoprazole PHA 04/12/25 In Process (Protonix) 10:00 Stool Bacterial JUAN 04/11/25 Logged Culture 20:59 Stool Wbc LAB 04/11/25 Logged 20:59 Electrocardigram EKG 04/11/25 Logged 21:05 Thiamine Tab PHA 04/12/25 In Process 10:00 Folic Acid Tablet PHA 04/12/25 In Process 10:00 Multiple Vitamin PHA 04/12/25 In Process Tablet (Mvi Tab) 10:00 Lorazepam 2mg/Ml Inj PHA 04/11/25 In Process (Ativan Inj) 21:15 Etoh Withdrawal JOSE 04/11/25 In Process Assessment 21:05 Etoh Withdrawal JOSE 04/11/25 In Process Assessment 21:05 Folic Acid... PHA 04/11/25 In Process 21:15 Vancomycin Per PHA 04/11/25 Pending Pharmacy 22:00 Potassium Effervesent PHA 04/11/25 Logged Tab (Klor-Con/Ef) 22:00 Sucralfate Susp PHA 04/11/25 Logged (Carafate Susp) 22:00 Propranolol Hcl PHA 04/11/25 Logged Tablet (Inderal 22:15 Date of Service: Apr 11, 2025 Billing Provider: YARELIS HUNTLEY MD Common Visit Codes: [id number] INP/OBS CARE (HIGH) Secondary Visit Codes: [id number] CARE PLAN 30 MINUTES TONY DEVLIN RESIDENT Apr 11, 2025 22:19
[2025-04-12] MEDS: PIPERACILLIN-TAZOB 3.375GM 100 ML IV SCH
[2025-04-12 05:18] LABS: Lymphocytes # (auto) 0.5 10 ^3/uL (0.4-5.4)
[2025-04-12 05:20] LABS: Basophils # (auto) 0 10 ^3/uL (0-0.2); Basophils % (auto) 0.8 % (0.0-2.0); Eosinophils # (auto) 0.1 10 ^3/uL (0-0.8); Eosinophils % (auto) 2.7 % (0.0-7.0); Hematocrit 36.3 % (41.0-53.0); Hemoglobin 13.3 g/dL (13.5-17.5); Lymphocytes % (auto) 8.8 % (10.0-50.0); Mean Corpuscular Hemoglobin 36.8 pg (28.0-32.0); Mean Corpuscular Volume 100.2 fL (80.0-100.0); Monocytes # (auto) 0.8 10 ^3/uL (0-1.3); Monocytes % (auto) 14.7 % (0.0-12.0); Neutrophils # (auto) 3.8 10 ^3/uL (1.6-8.6); Platelet Count (auto) 123 10^3/uL (140-450); Red Blood Cells 3.63 10^6/uL (4.5-5.90); Red Cell Distribution Width 13.7 % (11.8-14.3); White Blood Cell 5.3 10^3/uL (4.4-10.8)
[2025-04-12 05:28] LABS: Mean Corpuscular Hgb Conc. 36.7 g/dL (32.0-36.0)
[2025-04-12 05:34] LABS: Alanine Aminotransferase 24 U/L (7-40); Alkaline Phosphatase 96 U/L (46-116); Anion Gap 7 (5-15); BUN/Creatinine Ratio 11.3 (10.0-20.0); Blood Urea Nitrogen 11 mg/dL (9-23); Carbon Dioxide 25 mmol/L (20-31); Chloride 100 mmol/L (98-107); Total Protein 5.9 g/dL (5.7-8.2)
[2025-04-12 05:36] LABS: Albumin 2.4 g/dL (3.2-4.8); Aspartate Aminotransferase 50 U/L (13-40); Calcium 8.2 mg/dL (8.7-10.4); Glucose 118 mg/dL (74-106); Potassium 3.2 mmol/L (3.5-5.1); Sodium 132 mmol/L (136-145)
[2025-04-12 07:44] VITALS: PULSE 105; RESP 18; O2SAT 100
[2025-04-12 07:47] LABS: Bilirubin, Direct 1.6 mg/dL (<0.3)
[2025-04-12 07:48] LABS: Magnesium 1.5 mg/dL (1.6-2.6)
[2025-04-12] MEDS: MAGNESIUM SULFATE 1GM/100ML 100 ML IV ONE ×2 (08:01→09:00)
[2025-04-12] MEDS: POTASSIUM EFFERVESENT TAB 25 MEQ PO ONE (08:01)
[2025-04-12] MEDS: POTASSIUM CHLORIDE 40 MEQ, LIDOCAINE 1% (LOCAL ANESTH.) 4 ML in SODIUM CHL 0.9% 250 ML IV ONE (09:00)
[2025-04-12] MEDS ORDERED: THIAMINE HCL 100 MG TAB PO SCH (10:00)
[2025-04-12] MEDS ORDERED: FOLIC ACID 1 MG TAB PO SCH (10:00)
[2025-04-12] MEDS ORDERED: MULTIPLE VITAMIN TAB PO SCH (10:00)
[2025-04-12] MEDS ORDERED: PANTOPRAZOLE 40 MG/10 ML VIAL INJ IV SCH (10:00)
[2025-04-12] MEDS: SPIRONOLACTONE 25 MG TAB PO SCH (10:15)
[2025-04-12] MEDS: FUROSEMIDE 40 MG/4 ML VIAL IV SCH (10:15)
[2025-04-12] MEDS: PANTOPRAZOLE 40 MG/10 ML VIAL INJ IV SCH (10:17)
[2025-04-12] MEDS: LACTULOSE 20Gm/30ML SOLN PO SCH (10:35)
[2025-04-12 11:20] LABS: Folate (Folic Acid) 11.85 ng/mL (>5.38)
[2025-04-12 11:20] LABS: Free T3 3.52 pg/mL (2.3-4.2)
[2025-04-12 11:22] LABS: Free T4 (Free Thyroxine) 1.22 ng/dL (0.89-1.76)
--- NOTE | 2025-04-12 12:25 | DVHPNRES ---
Progress Note Date Seen: Apr 12, 2025 Resident Creating Document: JOSE D PETERSEN RESIDENT Has the PT tested + for MRSA If YES, has PT been informed?: No Medical Necessity Reason Pt with a Central, PICC or Fol: No Subjective Review of Systems Mr. Deejay Calvo, A 54-year-old male with a history of hypertension, chronic alcohol use, liver cirrhosis with ascites, recurrent paracentesis, anxiety and depression arrived ambulatory after experiencing four days of moderate nausea, vomiting (hard), and loose, watery diarrhea, with no recent history, pain, or modifying factors, 2/10 generalized abdominal pain, Nonblood vomiting, watery diarrhea, chills, and tremors, reporting his last alcohol intake (1 beer) was earlier today, though he typically consumes six daily. The differential diagnosis includes diverticular disease, gastritis or peptic ulcer disease, gastroenteritis, hepatitis, ischemic bowel, pancreatitis, urinary tract infection, dehydration, drug toxicity, electrolyte imbalance, food poisoning, bacterial or viral GI infections, hypovolemia, Spontaneous Bacterial Peritonitis (SBP) and alcohol withdrawal. The patient has had multiple ED visits and inpatient admissions for similar complaints, most recently from April 01 to April 05, 2025; he denies bloody stool, hematemesis, melena, fever, chills, chest pain, or shortness of breath, and has poor healthcare follow-up with no established PCP. Past Medical History Anxiety, Depression, HTN, Kidney Stones, Liver Cirrhosis with esophageal varices. Moderate ascites. Portal hypertensive enteropathy Past Surgical History Hernia Repair Family History: Other (Reviewed,noncontributory to illness, Family hx of Cancer) Smoke: No ALCOHOL: heavy Drugs: None Lives: with Family (at home ) Domestic Violence: Neg 04/12/2025: paracentesis done 6.2 lt drained, possible GI bleeding FOB pending, albumin ordered Objective vital signs Vital Sign Date Time Temp Pulse Resp B/P (MAP) Pulse Ox O2 Delivery O2 Flow Rate FiO2 04/12/25 10:15 108/73 04/12/25 10:00 106 12 99 04/12/25 08:00 98.3 98.3 04/12/25 07:44 Room Air* 0 21 Total Intake and Output 04/11/25 04/11/25 04/12/25 15:00 23:00 07:00 Intake Total 250 ml Balance 250 ml medications Current Medications Medications Dose Ordered Sig/Adama Route Start Time Stop Time Status Last Admin Dose Admin Piperacillin Sod/ Tazobactam Sod 100 ml @ 25 mls/hr Q6HR IV 04/12/25 00:00 04/12/25 05:43 25 MLS/HR Folic Acid 1 mg/ Magnesium Sulfate 8 meq/ Multivitamins 10 ml/Thiamine HCl 100 mg/Sodium Chloride 1,013.2 ml @ 126.247 mls/hr DAILY INJ 04/11/25 21:15 04/12/25 23:55 04/12/25 08:48 126.247 MLS/HR Vancomycin HCl 0 ml @ 0 mls/hr UD IV 04/11/25 22:00 Sucralfate 1 gm QID@0600,1130,1700,2200 PO 04/11/25 22:00 04/12/25 12:01 1 GM Propranolol HCl 20 mg BID PO 04/11/25 22:15 Pantoprazole Sodium 40 mg BID IV 04/12/25 10:00 04/12/25 10:17 40 MG Vancomycin HCl 200 ml @ 160 mls/hr Q12H IV 04/12/25 10:00 Lactulose 30 ml BID PO 04/12/25 10:15 04/12/25 10:35 30 ML Furosemide 40 mg DAILY IV 04/12/25 10:15 Spironolactone 25 mg DAILY PO 04/12/25 10:15 Examination General Appearance: Alert, Oriented X3, Cooperative, moderate distress HEENT: Atraumatic, PERRLA, EOMI, Mucous membr. moist/pink Respiratory: Clear to auscultation, Normal air movement Cardiovascular: Regular rate, Normal S1, Normal S2, No murmurs, Other (tachycardic) Abdominal: Normal bowel sounds, Soft, Other (generalized tenderness. no guarding, fluctuation, flank full. ) Extremities: No clubbing, No cyanosis, No edema, Normal pulses, No tenderness/swelling Skin: No rashes, No breakdown, No significant lesion Neuro: Strength at 5/5 X4 ext, Normal tone, Sensation intact, Cranial nerves 3- 12 NL, Reflexes 2+, Other (fine tremor b/l upper limb ) Psych/Mental Status: Mental status NL, Mood NL, Other (no homicidal or suicidal ideation) laboratory and microbiology Laboratory Tests 04/12/25 05:05 Test 04/12/25 05:05 Range/Units Serum Glucose 118 H 74-106 mg/dL Microbiology Date/Time Source Procedure Growth Status 04/11/25 19:25 Voided Urine Urine Culture - Preliminary Resulted Problem List/Assessment/Plan Problem List/Assessment/Plan # Portal hypertensive enteropathy # Cholelithiasis # Cholecystitis? # spontaneous bacterial peritonitis,rule out # sepsis? # possible gastroenteritis # dehydration, secondary to GI fluid loss. # Hepatitis A history # Ascites sp paracentesisi # Alcohol abuse # Mild hyponatremia, hypervolemic # mild hypokalemia # hyperbilirubinemia # hypoalbuminemia # hypo-magnesemia # gastroesophageal varices # history of hypertension # history of kidney stones # history of anxiety # history of depression # Macrocytic anemia # mild transaminitis Likely due to alcohol with to 2 to 1 pattern # medical nonadherence # Alcohol intoxication Plan: Hepatic diet Banana bag given Furosemide 40 mg IV daily Protonix BID Propranolol Spironolactone Sucralfate Vancomycin Zosyn Pending GI consult Pending HIDA scan CIWA score 3 Code status: Full code, goals of care discussion took 37 minutes total along with the care plan. Patient admitted in patient telemetry for further workup and management. Patient is agreeable to the plan. Discussed with Dr. Escudero Plan discussed with: Patient, Other My Orders My Orders Orders - JOSE D PETERSEN RESIDENT Procedure Category Date Status Time Pantoprazole PHA 04/12/25 In Process (Protonix) 10:00 Lactulose Oral PHA 04/12/25 In Process 10:15 Furosemide Injection PHA 04/12/25 In Process (Lasix Injection) 10:15 Spironolactone PHA 04/12/25 In Process (Aldactone) 10:15 * [facility] D[facility] Certified Alcohol Counselor CONS 04/12/25 Transmitted 11:35 Date of Service: Apr 12, 2025 Billing Provider: MIKE ESCUDERO MD Common Visit Codes: [id number] INP/OBS CARE(HIGH) JOSE D PETERSEN RESIDENT Apr 12, 2025 12:25 MIKE ESCUDERO MD Apr 13, 2025 15:39
[2025-04-12] MEDS: VANCOMYCIN 1GM/200ML PM 200 ML IV SCH (13:23)
--- NOTE | 2025-04-12 14:27 | DVH ---
US PARACENTESIS, HISTORY: ASCITES PROCEDURE: Informed consent was obtained. The patient was placed in supine position. A limited locali zation ultrasound of the abdomen was obtained, and the skin site over the largest pocket of fluid was marked and entry site was prepped with chlorhexidine which was allowed to dry and draped in the usua l sterile fashion. Time out was performed. Following administration of 1% lidocaine local anesthetic, a 5 [place] centesis needle catheter was percutaneously inserted into the peritoneal collection until fluid was aspirated. The catheter was advanced into the fluid collection and the needle removed. [place] 6150 cc of fluid was aspirated . The catheter was then removed and a sterile dressing applied. No immediate complication was identified. FINDINGS: Limited ultrasound imaging demonstrates moderate ascites. Aspirated fluid was clear and ser ous. IMPRESSION: US-guided paracentesis with 6.2L removed.
[2025-04-12 15:30] VITALS: PULSE 93; RESP 18; O2SAT 99
[2025-04-12 16:40] VITALS: BP 131/78; PULSE 91; RESP 18; TEMP 99.2; O2SAT 100
[2025-04-12 17:12] LABS: Body Fluid Red Blood Cells 850 CUMM (0-2000); Body Fluid White Blood Cells 317 CUMM (0-200)
[2025-04-12] MEDS: ALBUMIN 25% 100 ML IV SCH (17:49)
--- NOTE | 2025-04-12 18:32 | DVHINCON2 ---
Date of service: Apr 12, [address] Moon Reason for Consultation Abdominal pain cirrhosis ascites nausea anorexia History of Present Illness This 54-year-old male with a history of chronic alcohol abuse liver cirrhosis with ascites occurring requiring recurrent paracentesis had came with complaints of nausea vomiting anorexia watery bowel movements no bleeding Denies Any unusual food ingestion No history of any hepatitis Past Medical History Depression hypertension liver cirrhosis ascites kidney Past Surgical History Hernia Family History: FH: cancer G8 MOTHER, Hypertension G8 FATHER, , Onset:Unknown G8 FATHER, Hypertension G8 FATHER, , Onset:Unknown G8 FATHER, Seizure disorder G8 BROTHER, (unknown) Family History Noncontributory Social History History of moderate heavy drinking smoking Allergies: Coded Allergies: NO KNOWN ALLERGIES (Unverified , 03/12/20) Home Meds Active Scripts Furosemide (Lasix) 40 Mg Tab, 40 MG PO DAILY for 30 Days, #30 TAB 3 Refills Prov:JN ABRAHAM MD 04/05/25 Bumetanide (Bumetanide) 1 Mg Tab, 1 TAB PO BID for 30 Days, #60 TAB 3 Refills Prov:KAYLAN MELVIN DO 02/21/25 Magnesium Oxide (MAGNESIUM OXIDE) 400 Mg Tab, 400 MG OR DAILY for 30 Days, #30 TAB Prov:PORSCHE CROWE RESIDENT 07/31/24 Potassium Chloride (Potassium Chloride ER) 20 Meq Tab, 20 MEQ PO DAILY for 30 Days, #30 TAB Prov:PORSCHE CROWE RESIDENT 07/31/24 Multiple Vitamin (Multivitamins) Tab, 1 TAB PO DAILY for 90 Days, #90 TAB 0 Refills Prov:ANUJ MULLIGAN SLOT FLOOR PERSON 04/06/24 Sucralfate (CARAFATE) 1 Gm Tab, 1 GM OR QID for 30 Days, #120 TAB Prov:ANUJ MULLIGAN SL[employer] FLOOR PERSON 04/06/24 Lisinopril (Lisinopril) 20 Mg Tab, 1 TAB PO DAILYPRN for 60 Days, #60 TAB Prov:ANUJ MULLIGAN SL[employer] FLOOR PERSON 04/06/24 Propranolol HCl (Propranolol Hydrochloride) 20 Mg Tab, 1 TAB PO BID for 60 Days, #120 TAB Prov:ANUJ MULLIGAN SL[employer] FLOOR PERSON 04/06/24 Reported Medications Pantoprazole Sodium Sesquihydr (Pantoprazole Sodium) 40 Mg Tab, 1 TAB PO BID 04/11/25 Furosemide (Furosemide) 40 Mg Tab, 1 TAB PO DAILY 04/11/25 Cholecalciferol (VITAMIN D3) 2,000 Unit Tab, 1 TAB PO DAILY for 90 Days, #90 02/03/25 Spironolactone (Spironolactone) 25 Mg Tab, 1 TAB PO DAILY for 30 Days, #30 02/03/25 Pantoprazole Sodium Sesquihydr (Protonix) 40 Mg Tab, 1 TAB PO BID for 30 Days, #60 02/02/25 Lactulose (Lactulose) 10 Gm/15 Ml [place], ML PO 11/25/24 Acamprosate Calcium (ACAMPROSATE CALCIUM DR) 333 Mg Tab, 333 MG PO QID, TAB 07/31/24 Folic Acid (Folic Acid) 1 Mg Tab, 1 MG PO DAILY, TAB 07/31/24 Thiamine Hcl (VITAMIN B-1) 100 Mg Tb, 1 TAB PO DAILY for 30 Days, #30 07/31/24 Current Medications Current Medications Medications (Trade) Dose Ordered Sig/Adama Route PRN Reason Start Time Stop Time Status Last Admin Ondansetron HCl (Zofran) 4 mg Q4HP PRN IV NAUSEA / VOMITING 04/11/25 20:30 04/12/25 08:56 DC Docusate Sodium (Colace Capsule) 100 mg BIDPRN PRN PO FOR CONSTIPATION 04/11/25 20:30 04/12/25 08:56 DC Morphine Sulfate 2 mg Q4HPRN PRN IV SEVERE PAIN (7-10 PAIN SCALE) 04/11/25 21:00 04/12/25 08:56 DC Nitroglycerin (Ntrostat Sublingual) 0.4 mg Q5MINP PRN SL FOR CHEST PAIN 04/11/25 20:30 04/12/25 08:56 DC Morphine Sulfate 2 mg Q30M PRN IV FOR CHEST PAIN 04/11/25 21:00 04/12/25 08:56 DC Piperacillin Sod/ Tazobactam Sod 100 ml @ 25 mls/hr Q6HR IV 04/12/25 00:00 04/12/25 05:43 Pantoprazole Sodium (Protonix) 40 mg DAILY IV 04/12/25 10:00 04/12/25 08:58 DC Thiamine HCl 100 mg DAILY PO 04/12/25 10:00 6/9/25 08:56 DC Folic Acid 1 mg DAILY PO 04/12/25 10:00 04/12/25 08:56 DC Multivitamins (Mvi Tab) 1 tab DAILY PO 04/12/25 10:00 04/12/25 08:56 DC Lorazepam (Ativan Inj) 1 mg Q4H IV 04/11/25 21:15 04/12/25 08:56 DC 04/12/25 05:43 Folic Acid 1 mg/ Magnesium Sulfate 8 meq/ Multivitamins 10 ml/Thiamine HCl 100 mg/Sodium Chloride 1,013.2 ml @ 126.247 mls/hr DAILY INJ 04/11/25 21:15 04/12/25 23:55 04/12/25 08:48 Vancomycin HCl 0 ml @ 0 mls/hr UD IV 04/11/25 22:00 04/11/25 21:56 DC Vancomycin HCl 0 ml @ 0 mls/hr UD IV 04/11/25 22:00 Sucralfate (Carafate Susp) 1 gm QID@0600,1130,1700,2200 PO 04/11/25 22:00 04/12/25 16:29 Propranolol HCl (Inderal Tablet) 20 mg BID PO 04/11/25 22:15 Pantoprazole Sodium (Protonix) 40 mg BID IV 04/12/25 10:00 04/12/25 10:17 Vancomycin HCl 200 ml @ 160 mls/hr Q12H IV 04/12/25 10:00 04/12/25 13:23 Lactulose 30 ml BID PO 04/12/25 10:15 04/12/25 10:35 Furosemide (Lasix Injection) 40 mg DAILY IV 04/12/25 10:15 Spironolactone (Aldactone) 25 mg DAILY PO 04/12/25 10:15 Albumin Human 100 ml @ 100 mls/hr Q8H IV 04/12/25 16:15 04/13/25 09:14 04/12/25 17:49 Review of Systems Noncontributory Vital Signs Vital Signs Date Time Temp Pulse Resp B/P (MAP) Pulse Ox O2 Delivery O2 Flow Rate FiO2 04/12/25 16:40 99.2 91 18 131/78 (95) 100 99.2 04/12/25 16:40 Room Air* 0 21 Physical Exam Moderately built and nourished male in no acute distress Lungs clear ENT examination no pallor no icterus Lungs clear Cardiovascular unremarkable Abdomen is soft no tenderness no rigidity no guarding no masses Extremities no edema Neuro grossly intact Labs/Diagnostic Data Labs Test 04/12/25 13:00 04/12/25 05:05 04/11/25 21:10 04/11/25 19:25 Range/Units Body Fluid Source Peritoneal fluid Body Fluid pH 8.0 Body Fluid WBC (Manual) 317 H 0-200 CUMM Body Fluid RBC (Manual) 850 0-2000 CUMM Body Fluid Mononuclear Cells 70 % Body Fluid Polymorphonuclear Cells 30 H 0-25 % White Blood Count 5.3 4.4-10.8 10^3/uL Red Blood Count 3.63 L 4.5-5.90 10^6/uL Hemoglobin 13.3 L 13.5-17.5 g/dL Hematocrit 36.3 #L 41.0-53.0 % Mean Corpuscular Volume 100.2 H 80.0-100.0 fL Mean Corpuscular Hemoglobin 36.8 H 28.0-32.0 pg Mean Corpuscular Hemoglobin Concent 36.7 H 32.0-36.0 g/dL Red Cell Distribution Width 13.7 11.8-14.3 % Platelet Count 123 L 140-450 10^3/uL Mean Platelet Volume 6.6 L 6.9-10.8 fL Neutrophils (%) (Auto) 73.0 37.0-80.0 % Lymphocytes (%) (Auto) 8.8 L 10.0-50.0 % Monocytes (%) (Auto) 14.7 H 0.0-12.0 % Eosinophils (%) (Auto) 2.7 0.0-7.0 % Basophils (%) (Auto) 0.8 0.0-2.0 % Neutrophils # (Auto) 3.8 1.6-8.6 10 ^3/uL Lymphocytes # (Auto) 0.5 0.4-5.4 10 ^3/uL Monocytes # (Auto) 0.8 0-1.3 10 ^3/uL Eosinophils # (Auto) 0.1 0-0.8 10 ^3/uL Basophils # (Auto) 0 0-0.2 10 ^3/uL Nucleated Red Blood Cells 0.0 % Sodium Level 132 L 136-145 mmol/L Potassium Level 3.2 L 3.5-5.1 mmol/L Chloride Level 100 98-107 mmol/L Carbon Dioxide Level 25 20-31 mmol/L Anion Gap 7 5-15 Blood Urea Nitrogen 11 9-23 mg/dL Creatinine 0.97 0.700-1.30 mg/dL Glomerular Filtration Rate Calc 93 >90 mL/min BUN/Creatinine Ratio 11.3 10.0-20.0 Serum Glucose 118 H 74-106 mg/dL Calcium Level 8.2 L 8.7-10.4 mg/dL Magnesium Level 1.5 L 1.6-2.6 mg/dL Total Bilirubin 3.0 H 0.2-1.0 mg/dL Direct Bilirubin 1.6 H <0.3 mg/dL Aspartate Amino Transferase (AST) 50 H 13-40 U/L Alanine Aminotransferase (ALT) 24 7-40 U/L Alkaline Phosphatase 96 46-116 U/L Total Protein 5.9 5.7-8.2 g/dL Albumin 2.4 L 3.2-4.8 g/dL Free Thyroxine (T4) Calculated 1.22 0.89-1.76 ng/dL Free Triiodothyronine (T3) pg/mL 3.52 2.3-4.2 pg/mL Random Vancomycin Level 13.9 H 5-10 ug/mL Prothrombin Time 12.9 H 9.3-11.8 sec Prothrombin Time INR 1.24 H 0.9-1.15 Urine Color Yellow Yellow Urine Clarity Clear Clear Urine pH 5.5 5.0-9.0 Urine Specific [place] 1.021 1.001-1.035 Urine Protein Negative Negative Urine Ketones Negative Negative Urine Blood 1+ H Negative /uL Urine Nitrite Negative Negative Urine Bilirubin Negative Negative Urine Urobilinogen Normal Negative mg/dL Urine Leukocyte Esterase Negative Negative /uL Urine RBC 4 0 - 3 /hpf Urine Microscopic WBC 1 0-3 /HPF Urine Squamous Epithelial Cells Few <5 /hpf Urine Bacteria None seen None Seen /hpf Urine Glucose Normal Normal mg/dL Urine Opiates Screen Pos NEGATIVE Urine Fentanyl Screen Neg NEGATIVE Urine Barbiturates Screen Neg NEGATIVE Urine Phencyclidine Screen Neg NEGATIVE Urine Amphetamines Screen Neg NEGATIVE Urine Benzodiazepines Screen Neg NEGATIVE Urine Cocaine Screen Neg NEGATIVE Urine Cannabinoids Screen Neg NEGATIVE Test 04/11/25 16:32 04/11/25 14:31 Range/Units Lactic Acid Level 1.9 0.4-2.0 mmol/L Differential Total Cells Counted 100.0 100 Neutrophils % (Manual) 67 37.0-80.0 Band Neutrophils % (Manual) 1 Lymphocytes % (Manual) 22 10.0-50.0 Monocytes % (Manual) 6 0-12 Eosinophils % (Manual) 4 0-7 Basophils % (Manual) 0 0.0-2.0 Metamyelocytes % (manual) 0 Myelocytes % (Manual) 0 Promyelocytes % (Manual) 0 Blast Cells % (Manual) 0 Reactive Lymphocytes 0 Platelet Estimate Adequate Ammonia 31 11-32 umol/L Lipase 55 H 12-53 U/L Vitamin B12 Level 1012 H 211-911 pg/mL Folic Acid 11.85 >5.38 ng/mL Thyroid Stimulating Hormone (TSH) 4.95 H 0.55-4.78 uIU/mL Plasma/Serum Blood Alcohol 39.0 H <10 mg/dL Microbiology Date/Time Source Procedure Growth Status 04/11/25 19:25 Voided Urine Urine Culture - Preliminary Resulted 04/11/25 14:31 Blood Blood Culture - Preliminary NO GROWTH AFTER 24 HOURS OF INCUBATION. Resulted Assessment 54-year-old with a history of cirrhosis history of hypertension admitted with complaints of abdominal pain nausea vomiting diarrhea no bleeding no hematemesis or melena patient has got his kidney history of heavy alcoholism with cirrhosis and requiring paracentesis often Physical examination unremarkable labs showed that the lipase little high 55 TSH is high afford 0.95 clinical impression is cirrhosis with ascites possible mild gastritis cholelithiasis possible gastroenteritis with a history of alcohol abuse alcoholic liver disease. Plan/Recommendation Suggestions watch closely the labs in case symptoms persist may need further evaluation as we treat with PPIs and symptomatic treatment for the time being follow up the liver enzymes closely. As well as the lipase. Thank you for asking me to take part in the care of pleasant man Dr. Erika Minor discussed with: Patient AUGUSTA ASHFORD MD Apr 12, 2025 18:32
[2025-04-12 20:00] VITALS: PULSE 106; PULSE 109; RESP 20; O2SAT 98
[2025-04-12 21:00] VITALS: BP 109/60; PULSE 104; RESP 20; TEMP 97.9; O2SAT 98
[2025-04-13 01:00] VITALS: BP 100/64; PULSE 82; RESP 18; TEMP 98; O2SAT 98
[2025-04-13 05:00] VITALS: BP 96/56; PULSE 84; RESP 19; TEMP 98.2; O2SAT 99
[2025-04-13 05:22] LABS: Hemoglobin 11.4 g/dL (13.5-17.5); Mean Corpuscular Volume 101.2 fL (80.0-100.0); Red Cell Distribution Width 13.7 % (11.8-14.3)
[2025-04-13 05:24] LABS: Hematocrit 31.6 % (41.0-53.0); Mean Corpuscular Hemoglobin 36.5 pg (28.0-32.0); Mean Corpuscular Hgb Conc. 36.1 g/dL (32.0-36.0); Platelet Count (auto) 81 10^3/uL (140-450); Red Blood Cells 3.12 10^6/uL (4.5-5.90); White Blood Cell 2.9 10^3/uL (4.4-10.8)
[2025-04-13 05:29] LABS: Basophils % (manual) 0 (0.0-2.0); Blast Cells 0; Metamyelocytes % 0; Myelocytes % 0; Promyelocytes % 0; Reactive Lymphocytes 0
[2025-04-13 05:30] LABS: Alanine Aminotransferase 15 U/L (7-40); Albumin 2.4 g/dL (3.2-4.8); Alkaline Phosphatase 60 U/L (46-116); Anion Gap 8 (5-15); BUN/Creatinine Ratio 12.2 (10.0-20.0); Blood Urea Nitrogen 10 mg/dL (9-23); Carbon Dioxide 22 mmol/L (20-31); Chloride 103 mmol/L (98-107); Glucose 103 mg/dL (74-106); Potassium 3.7 mmol/L (3.5-5.1); Sodium 133 mmol/L (136-145)
[2025-04-13 05:31] LABS: Bilirubin, Total 2.8 mg/dL (0.2-1.0)
[2025-04-13 05:40] LABS: Aspartate Aminotransferase 41 U/L (13-40)
[2025-04-13 06:25] LABS: Band Neutrophils % (manual) 1; Eosinophils % (manual) 1 (0-7); Lymphocytes % (manual) 21 (10.0-50.0); Macrocytosis Slight; Monocytes % (manual) 11 (0-12); Platelet Estimate Decreased
[2025-04-13 07:30] VITALS: PULSE 74
[2025-04-13 07:50] VITALS: PULSE 76; RESP 17; O2SAT 100
[2025-04-13 09:00] VITALS: BP 97/64; PULSE 76; RESP 17; TEMP 97.9; O2SAT 100
[2025-04-13 12:07] LABS: Protein, Body Fluid 1.7 g/dL (.)
--- NOTE | 2025-04-13 13:58 | DVH ---
Procedure: UT NM HIDA SCAN Exam Date: 04/13/2025 11:45 AM Clinical History: rule out cholecystitis Comparison Study: None Nuclear Medicine Hepatobiliary Scan. Technique: Following the intravenous administration of 5.5 mCi of technetium 99m labeled Choletec multiple plana r abdominal planar images were obtained in anterior projection in 1 minute intervals for 60 minutes . Right lateral images were obtained at 60 minutes after injection. Findings: Rapid uptake and excretion from the liver. Gallbladder visualized by 60 minutes. Tracer seen within t he small bowel extending to almost the terminal ileum. Impression: 1. Patent cystic duct.
[2025-04-13 14:20] VITALS: BP 100/66; PULSE 76; RESP 17; TEMP 97.9; O2SAT 100
--- NOTE | 2025-04-13 15:31 | DVHDSRES ---
Discharge Summary Date of Admission Resident Creating Document: JOSE D PETERSEN RESIDENT Apr 11, 2025 at 20:21 Date of Discharge: Apr 13, 2025 Admitting Diagnosis #Acute exacerbation of liver cirrhosis Labs/Diagnostic Data: Laboratory Results Test 04/13/25 13:45 04/13/25 04:47 04/12/25 13:00 04/12/25 05:05 Stool Occult Blood Negative (Negative) Stool Occult Blood Sample #3 (Negative) White Blood Count 2.9 10^3/uL (4.4-10.8) Red Blood Count 3.12 10^6/uL (4.5-5.90) Hemoglobin 11.4 g/dL (13.5-17.5) Hematocrit 31.6 % (41.0-53.0) Mean Corpuscular Volume 101.2 fL (80.0-100.0) Mean Corpuscular Hemoglobin 36.5 pg (28.0-32.0) Mean Corpuscular Hemoglobin Concent 36.1 g/dL (32.0-36.0) Red Cell Distribution Width 13.7 % (11.8-14.3) Platelet Count 81 10^3/uL (140-450) Mean Platelet Volume 7.1 fL (6.9-10.8) Neutrophils (%) (Auto) % (37.0-80.0) Lymphocytes (%) (Auto) % (10.0-50.0) Monocytes (%) (Auto) % (0.0-12.0) Basophils (%) (Auto) % (0.0-2.0) Neutrophils # (Auto) 10 ^3/uL (1.6-8.6) Lymphocytes # (Auto) 10 ^3/uL (0.4-5.4) Monocytes # (Auto) 10 ^3/uL (0-1.3) Differential Total Cells Counted 100.0 (100) Neutrophils % (Manual) 66 (37.0-80.0) Band Neutrophils % (Manual) 1 Lymphocytes % (Manual) 21 (10.0-50.0) Monocytes % (Manual) 11 (0-12) Eosinophils % (Manual) 1 (0-7) Basophils % (Manual) 0 (0.0-2.0) Metamyelocytes % (manual) 0 Myelocytes % (Manual) 0 Promyelocytes % (Manual) 0 Blast Cells % (Manual) 0 Reactive Lymphocytes 0 Platelet Estimate Decreased Macrocytosis Slight Sodium Level 133 mmol/L (136-145) Potassium Level 3.7 mmol/L (3.5-5.1) Chloride Level 103 mmol/L (98-107) Carbon Dioxide Level 22 mmol/L (20-31) Anion Gap 8 (5-15) Blood Urea Nitrogen 10 mg/dL (9-23) Creatinine 0.82 mg/dL (0.700-1.30) Glomerular Filtration Rate Calc 105 mL/min (>90) BUN/Creatinine Ratio 12.2 (10.0-20.0) Serum Glucose 103 mg/dL (74-106) Calcium Level 8.0 mg/dL (8.7-10.4) Total Bilirubin 2.8 mg/dL (0.2-1.0) Aspartate Amino Transferase (AST) 41 U/L (13-40) Alanine Aminotransferase (ALT) 15 U/L (7-40) Alkaline Phosphatase 60 U/L (46-116) Total Protein 5.0 g/dL (5.7-8.2) Albumin 2.4 g/dL (3.2-4.8) Body Fluid Source Peritoneal fluid Body Fluid pH 8.0 Body Fluid WBC (Manual) 317 CUMM (0-200) Body Fluid RBC (Manual) 850 CUMM (0-2000) Body Fluid Mononuclear Cells 70 % Body Fluid Polymorphonuclear Cells 30 % (0-25) Body Fluid Glucose 121 mg/dL (.) Body Fluid Total Protein 1.7 g/dL (.) Body Fluid Lactate Dehydrogenase 69 IU/L (.) Eosinophils (%) (Auto) 2.7 % (0.0-7.0) Eosinophils # (Auto) 0.1 10 ^3/uL (0-0.8) Basophils # (Auto) 0 10 ^3/uL (0-0.2) Nucleated Red Blood Cells 0.0 % Magnesium Level 1.5 mg/dL (1.6-2.6) Direct Bilirubin 1.6 mg/dL (<0.3) Free Thyroxine (T4) Calculated 1.22 ng/dL (0.89-1.76) Free Triiodothyronine (T3) pg/mL 3.52 pg/mL (2.3-4.2) Random Vancomycin Level 13.9 ug/mL (5-10) Test 04/11/25 21:10 04/11/25 19:25 04/11/25 16:32 04/11/25 14:31 Prothrombin Time 12.9 sec (9.3-11.8) Prothrombin Time INR 1.24 (0.9-1.15) Urine Color Yellow (Yellow) Urine Clarity Clear (Clear) Urine pH 5.5 (5.0-9.0) Urine Specific [place] 1.021 (1.001-1.035) Urine Protein Negative (Negative) Urine Ketones Negative (Negative) Urine Blood 1+ /uL (Negative) Urine Nitrite Negative (Negative) Urine Bilirubin Negative (Negative) Urine Urobilinogen Normal mg/dL (Negative) Urine Leukocyte Esterase Negative /uL (Negative) Urine RBC 4 /hpf (0 - 3) Urine Microscopic WBC 1 /HPF (0-3) Urine Squamous Epithelial Cells Few /hpf (<5) Urine Bacteria None seen /hpf (None Seen) Urine Glucose Normal mg/dL (Normal) Urine Opiates Screen Pos (NEGATIVE) Urine Fentanyl Screen Neg (NEGATIVE) Urine Barbiturates Screen Neg (NEGATIVE) Urine Phencyclidine Screen Neg (NEGATIVE) Urine Amphetamines Screen Neg (NEGATIVE) Urine Benzodiazepines Screen Neg (NEGATIVE) Urine Cocaine Screen Neg (NEGATIVE) Urine Cannabinoids Screen Neg (NEGATIVE) Lactic Acid Level 1.9 mmol/L (0.4-2.0) Ammonia 31 umol/L (11-32) Lipase 55 U/L (12-53) Vitamin B12 Level 1012 pg/mL (211-911) Folic Acid 11.85 ng/mL (>5.38) Thyroid Stimulating Hormone (TSH) 4.95 uIU/mL (0.55-4.78) Plasma/Serum Blood Alcohol 39.0 mg/dL (<10) Other Laboratory Tests 04/13/25 04:47 Brief Hx & Hospital Course: A 54-year-old male with a history of hypertension, heavy alcohol use, liver cirrhosis with ascites, esophageal varices, and recurrent paracenteses, presented with four days of hard vomiting and loose watery diarrhea. On admission, he was noted to be hemodynamically stable with evidence of ascites and concern for possible spontaneous bacterial peritonitis (SBP), gastroenteritis, or alcohol withdrawal. He was started on empiric antibiotics including piperacillin-tazobactam and vancomycin. A diagnostic and therapeutic paracentesis drained 6.2 L of fluid. Albumin was administered. SBP was excluded after fluid analysis, GI infection, alcohol withdrawal, and portal hypertensive enteropathy. He had evidence of transaminitis (likely alcohol-related), macrocytic anemia, and mild electrolyte imbalances (hyponatremia, hypomagnesemia). CIWA score was low. GI saw him and stated that scopes can be done as outpatient He was managed with a hepatic diet, banana bag, furosemide, propranolol, spironolactone, sucralfate, vancomycin, Zosyn, and proton pump inhibitors. Goals of care discussion was conducted and he agreed to full code. Discharge Condition: Stable, improved nausea/vomiting, tolerating oral intake. Discharge Medications: Protonix BID Propranolol Spironolactone Sucralfate Continue hepatic diet Alcohol cessation counseling provided Follow-Up Appointments: Primary care in 2-4 weeks GI for further workup and possible elective endoscopy Instructions: Avoid alcohol and NSAIDs Monitor for signs of GI bleeding or encephalopathy Keep follow-up appointments Return to ED if symptoms worsen Case discussed with Dr Escudero Full code Consults/Reason for consult GI due to possible GI bleeding? Operations or Procedures Procedure: NM NM HIDA SCAN Exam Date: 04/13/2025 11:45 AM Clinical History: rule out cholecystitis Comparison Study: None Nuclear Medicine Hepatobiliary Scan. Technique: Following the intravenous administration of 5.5 mCi of technetium 99m labeled Choletec multiple planar abdominal planar images were obtained in anterior projection in 1 minute intervals for 60 minutes . Right lateral images were obtained at 60 minutes after injection. Findings: Rapid uptake and excretion from the liver. Gallbladder visualized by 60 minutes. Tracer seen within the small bowel extending to almost the terminal ileum. Impression: 1. Patent cystic duct. US PARACENTESIS, HISTORY: ASCITES PROCEDURE: Informed consent was obtained. The patient was placed in supine position. A limited localization ultrasound of the abdomen was obtained, and the skin site over the largest pocket of fluid was marked and entry site was prepped with chlorhexidine which was allowed to dry and draped in the usual sterile fashion. Time out was performed. Following administration of 1% lidocaine local anesthetic, a 5 [place] centesis needle catheter was percutaneously inserted into the peritoneal collection until fluid was aspirated. The catheter was advanced into the fluid collection and the needle removed. About 6150 cc of fluid was aspirated . The catheter was then removed and a sterile dressing applied. No immediate complication was identified. FINDINGS: Limited ultrasound imaging demonstrates moderate ascites. Aspirated fluid was clear and serous. IMPRESSION: US-guided paracentesis with 6.2L removed. Condition at Discharge: Stable Final Diagnosis/Problems List #Acute exacerbation of liver cirrhosis # Portal hypertensive enteropathy # Cholelithiasis # Cholecystitis rule out # spontaneous bacterial peritonitis,rule out # sepsis? # possible gastroenteritis # dehydration, secondary to GI fluid loss. # Hepatitis A history # Ascites sp paracentesis # Alcohol abuse # Mild hyponatremia, hypervolemic # mild hypokalemia # hyperbilirubinemia # hypoalbuminemia # hypo-magnesemia # gastroesophageal varices # history of hypertension # history of kidney stones # history of anxiety # history of depression # Macrocytic anemia # mild transaminitis Likely due to alcohol with to 2 to 1 pattern # medical nonadherence # Alcohol intoxication Discharge Disposition: Home Discharge Instruct/Medications Diet: Consistent carbohydrate, Cardiac 2g Na,low cholest Activity: Light activity Follow Up/Referral: dc clinic Medications: see presciption Discharge Statement: "Patient was advised to return to the ER or call 911 if any headaches, dizziness, shortness of breath, chest pain, abdominal pain, bleeding, fevers, or worsening of medical condition. Patient was counseled about treatment plan, medications, possible side effects, patientverbalized understanding. All questions were answered to the best of my ability. This discharge took greater then 30 minutes in planning, reviewing documentation, counseling the patient, and discussing with other team members." ASSESSMENT ASSESSMENT Assessment liver cirrhosis sp paracentesis Date of Service: Apr 13, 2025 Billing Provider: MIKE ESCUDERO MD Common Visit Codes: 18116-JUZ/OBS DISCH DAY >30min JOSE D PETERSEN RESIDENT Apr 13, 2025 15:31 MIKE ESCUDERO MD Apr 15, 2025 12:25
--- NOTE | 2025-04-13 18:44 | DVHPN2 ---
Progress Note - Dictate Date Seen: Apr 13, 2025 (Late entryPatient seen at 4:00 p.m.) Has the PT tested + for MRSA If YES, has PT been informed?: No Medical Necessity Reason Pt with a Central, PICC or Fol: No Subjective Patient underwent paracentesis today by IR And 6.1 L of fluid were removed HIDA scan showed a patent cystic duct Patient seen sitting at the edge of the bed; offers no complaint, tolerating diet, no GI bleeding vital signs Vital Sign Date Time Temp Pulse Resp B/P (MAP) Pulse Ox O2 Delivery O2 Flow Rate FiO2 04/13/25 14:20 97.9 76 17 100 04/13/25 10:01 100/66 04/13/25 07:50 Room Air* 0 21 Total Intake and Output 04/12/25 04/12/25 04/13/25 15:00 23:00 07:00 Intake Total 1191.482 ml 100 ml 400 ml Output Total 6150 ml Balance -4958.518 ml 100 ml 400 ml objective Moderately built and nourished male in no acute distress Lungs clear ENT examination Mild pallor, mild scleral icterus Lungs clear Cardiovascular unremarkable Abdomen is soft no tenderness no rigidity no guarding no masses Extremities no edema Neuro grossly intact laboratory and microbiology Laboratory Tests 04/13/25 04:47 Test 04/13/25 04:47 Range/Units Serum Glucose 103 74-106 mg/dL Problems(with codes): (1) Abdominal ascites (2) Liver cirrhosis (3) Cholelithiasis (4) Alcohol abuse (5) Ascites (6) Abdominal distention Prognosis Plan Discharge planning is in progress Patient was advised to follow up with his PCP He can follow up in my office as an outpatient in 2-4 weeks for ongoing observation management of his chronic liver disease Patient has been counseled to discontinue alcohol and any substance abuse Outpatient follow up with GI Services to discuss elective panendoscopy Plan discussed with: Patient ANGELICA GREEN MD Apr 13, 2025 18:44
== END 2025-04-13 17:00 | disposition home or self-care (01) | DRG 720 ==
LOC: ER 13:15 → OVERFLOW 20:21 → TELE-CENTR 04-12 15:21
PROVIDERS: ADMIT Student in an Organized Health Care Education/Training Program; ATTEND Emergency Medicine
PROC: 0W9G3ZZ Drainage of Peritoneal Cavity, Percutaneous Approach (ICD-10-PCS; principal; 2025-04-12)
DX: A41.9 Sepsis, unspecified organism (principal); E87.20 Acidosis, unspecified; I85.10 Secondary esophageal varices without bleeding; K65.2 Spontaneous bacterial peritonitis; K76.6 Portal hypertension; E87.1 Hypo-osmolality and hyponatremia; R18.8 Other ascites; E88.09 Other disorders of plasma-protein metabolism, not elsewhere classified; K74.60 Unspecified cirrhosis of liver; K75.9 Inflammatory liver disease, unspecified; I10 Essential (primary) hypertension; D53.9 Nutritional anemia, unspecified; F10.139 Alcohol abuse with withdrawal, unspecified; F10.129 Alcohol abuse with intoxication, unspecified; E86.0 Dehydration; K63.9 Disease of intestine, unspecified; E87.6 Hypokalemia; E80.6 Other disorders of bilirubin metabolism; F41.9 Anxiety disorder, unspecified; K63.89 Other specified diseases of intestine; K80.20 Calculus of gallbladder without cholecystitis without obstruction; E83.42 Hypomagnesemia; E86.9 Volume depletion, unspecified; Z91.199 Patient's noncompliance with other medical treatment and regimen due to unspecified reason; Z87.442 Personal history of urinary calculi; Z82.49 Family history of ischemic heart disease and other diseases of the circulatory system; Z82.0 Family history of epilepsy and other diseases of the nervous system; Z79.899 Other long term (current) drug therapy; Y90.1 Blood alcohol level of 20-39 mg/100 ml; K52.9 Noninfective gastroenteritis and colitis, unspecified
CPT/HCPCS: 36415; 49083; 74176; 76705; 76942; 78226; 80053; 80202; 80307; 80320; 81001; 82140; 82248; 82270; 82607; 82746; 83605; 83690; 83735; 83986; 84439; 84443; 84481; 85007; 85025; 85027; 85048; 85610; 87040; 87045; 87086; 87205; 87427; 87493; 89051; 96365; 96375; G0378; J2003; J2405; J2470; J2543; J7060; P9047

== ENCOUNTER 2025-04-27 06:17 | Emergency (ER) | payer MEDICAID ==
[~2025-04-27] VITALS: Ht 165.1 cm; Wt 86.9 kg
[~2025-04-27 06:17] MED LIST changes: +FURO40TA4 PO; +PANT40T PO
--- NOTE | 2025-04-27 07:01 | ED.PDOC ---
GI ASSESSMENT HPI Comments 54 y/o M, with PMHx of alcohol abuse, abdominal ascetics, liver cirrhosis, and HTN presents to the ED for CC of abdominal pain. Patient states, he has been experiencing abdominal pain with associated abdominal distension [id number] following, his regular paracentesis. Patient endorses, still to be drinking heavily up to x4 beers daily. Patient denies nausea, vomiting, or diarrhea. No other symptoms or modifying factors present at this time. Chief Complaint: Abdominal Pain Time Seen by MD: 06:50 Primary Care Provider: UNKNOWN Reviewed Notes: Nurses Notes, Medications, Allergies Allergies: Coded Allergies: NO KNOWN ALLERGIES (Unverified , 03/12/20) Home Meds Active Scripts Furosemide (Lasix) 40 Mg Tab, 40 MG PO DAILY for 30 Days, #30 TAB 3 Refills Prov:JN ABRAHAM MD 04/05/25 Bumetanide (Bumetanide) 1 Mg Tab, 1 TAB PO BID for 30 Days, #60 TAB 3 Refills Prov:KAYLAN MELVIN DO 02/21/25 Magnesium Oxide (MAGNESIUM OXIDE) 400 Mg Tab, 400 MG OR DAILY for 30 Days, #30 TAB Prov:PORSCHE CROWE RESIDENT 07/31/24 Potassium Chloride (Potassium Chloride ER) 20 Meq Tab, 20 MEQ PO DAILY for 30 Days, #30 TAB Prov:PORSCHE CROWE RESIDENT 07/31/24 Multiple Vitamin (Multivitamins) Tab, 1 TAB PO DAILY for 90 Days, #90 TAB 0 Refills Prov:ANUJ MULLIGAN SPECIAL ORDER JEWELER 04/06/24 Sucralfate (CARAFATE) 1 Gm Tab, 1 GM OR QID for 30 Days, #120 TAB Prov:ANUJ MULLIGAN SPECIAL ORDER JEWELER 04/06/24 Lisinopril (Lisinopril) 20 Mg Tab, 1 TAB PO DAILYPRN for 60 Days, #60 TAB Prov:ANUJ MULLIGAN SPECIAL ORDER JEWELER 04/06/24 Propranolol HCl (Propranolol Hydrochloride) 20 Mg Tab, 1 TAB PO BID for 60 Days, #120 TAB Prov:ANUJ MULLIGAN SPECIAL ORDER JEWELER 04/06/24 Reported Medications Pantoprazole Sodium Sesquihydr (Pantoprazole Sodium) 40 Mg Tab, 1 TAB PO BID 04/11/25 Furosemide (Furosemide) 40 Mg Tab, 1 TAB PO DAILY 04/11/25 Cholecalciferol (VITAMIN D3) 2,000 Unit Tab, 1 TAB PO DAILY for 90 Days, #90 02/03/25 Spironolactone (Spironolactone) 25 Mg Tab, 1 TAB PO DAILY for 30 Days, #30 02/03/25 Pantoprazole Sodium Sesquihydr (Protonix) 40 Mg Tab, 1 TAB PO BID for 30 Days, #60 02/02/25 Lactulose (Lactulose) 10 Gm/15 Ml Sharon, ML PO 11/25/24 Acamprosate Calcium (ACAMPROSATE CALCIUM DR) 333 Mg Tab, 333 MG PO QID, TAB 07/31/24 Folic Acid (Folic Acid) 1 Mg Tab, 1 MG PO DAILY, TAB 07/31/24 Thiamine Hcl (VITAMIN B-1) 100 Mg Tb, 1 TAB PO DAILY for 30 Days, #30 07/31/24 Information Source: Patient Mode of Arrival: Ambulatory Timing: Days Duration: Since onset Prehospital treatment: None Quality: None Vomitus: None Stool: Normal Severity: Moderate Recent: None Recent Hx of: None Pain Location: Diffuse Modifying Factors: Nothing Associated sign and symptoms: Abdominal Pain Past Medical History PAST MEDICAL HISTORY: Anxiety, Depression, HTN, Kidney Stones, Liver Surgical History: Hernia Repair Family History Family History: Reviewed,noncontributory to illness, Family hx of Cancer Social History Smoker: Non-Smoker Alcohol: Heavy Drugs: Denies Drug Use Lives In: Home Constitutional: denies: chills, diaphoresis, fatigue, fever, malaise, sweats, weakness, others EENTM: denies: blurred vision, double vision, ear bleeding, ear discharge, ear drainage, ear pain, ear ringing, eye pain, eye redness, hearing loss, mouth pain, mouth swelling, nasal discharge, nose bleeding, nose congestion, nose pain, photophobia, tearing, throat pain, throat swelling, voice changes, others Respiratory: denies: cough, hemoptysis, orthopnea, SOB at rest, shortness of breath, SOB with excertion, stridor, wheezing, others Cardiovascular: denies: chest pain, dizzy spells, diaphoresis, Dyspnea on exertion, edema, irregular heart beat, left arm pain, lightheadedness, palpitations, PND, syncope, others Gastrointestinal: reports: abdomen distended, abdominal pain; denies: blood streaked bowels, constipated, diarrhea, dysphagia, difficulty swallowing, hematemesis, melena, nausea, poor appetite, poor fluid intake, rectal bleeding, rectal pain, vomiting, others Genitourinary: denies: burning, dysuria, flank pain, frequency, hematuria, incontinence, penile discharge, penile sore, pain, testicle pain, testicle swelling, urgency, others Neurological: denies: dizziness, fainting, headache, left sided numbness, left sided weakness, numbness, paresthesia, pre-existing deficit, right sided numbness, right sided weakness, seizure, speech problems, tingling, tremors, wea kness, others Musculoskeletal: denies: back pain, gout, joint pain, joint swelling, muscle pain, muscle stiffness, neck pain, others Integumetry: denies: bruises, change in color, change in hair/nails, dryness, l aceration, lesions, lumps, rash, wounds, others Allergic/Immunocompromised: denies: Difficulty Healing, Frequent Infections, Hives, Itching, others Hematologic/Lymphatic: denies: anemia, blood clots, easy bleeding, easy bruising, swollen glands, others Endocrine: denies: excessive hunger, excessive sweating, excessive thirst, excessive urination, flushing, intolerance to cold, intolerance to heat, unexplained weight gain, unexplained weight loss, others Psychiatric: denies: anxiety, bipolar disorder, depression, hopeless, panic disorder, schizophrenia, sleepless, suicidal, others All Other Systems: Reviewed and Negative Physical Exam General Appearance: Moderate Distress HEENT: Scleral Icterus (L), Scleral Icterus (R) Neck: Full Range of Motion, Non-Tender, Normal, Normal Inspection Respiratory: Chest Non-Tender, Lungs Clear, No Accessory Muscle Use, No Respiratory Distress, Normal Breath Sounds Cardiovascular: No Edema, No JVD, No Murmur, No Gallop, Normal Peripheral Pulses, Regular Rate/Rhythm Breast Exam: Deferred Gastrointestinal: Distended Genitalia: Deferred Pelvic: Deferred Rectal: Deferred Extremities: No calf tenderness, Normal capillary refill, Normal inspection, Normal range of motion, Non-tender, No pedal edema Musculoskeletal : Apperance: Normal Neurologic: Alert, rug cutter helper II-XII nml as Tested, No Motor Deficits, Normal Affect, Normal Mood, No Sensory Deficits Cerebellar Function: Normal Reflexes: Normal Skin: Dry, Jaundice, Warm Peripheral Pulses: 3+ Radial (R), 3+ Radial (L) Lymphatic: No Adenopathy Was a procedure done? Was a procedure done?: No GI differential Dx Differential Diagnosis: Constipation, Diverticular disease, Esophagitis, Gastritis/PUD, Gastroenteritis, Other (abdominal ascites, liver cirrhosis) X-Ray, Labs, Meds, VS Vital Signs Date Time Temp Pulse Resp B/P (MAP) Pulse Ox O2 Delivery O2 Flow Rate FiO2 04/27/25 06:17 99.0 100 16 146/89 (108) 98 99.0 Lab Test 04/27/25 07:04 Range/Units Prothrombin Time 12.3 H 9.3-11.8 sec Prothrombin Time INR 1.18 H 0.9-1.15 Activated Partial Thromboplast Time 29.0 24.5-34.5 SEC Patient alert. Abdomen is distended. Liver failure. Vitals stable. Ambulating. Continues to drink alcohol. Recently here for paracentesis. Reviewed his previous visit. Abdomen is soft. Explained to the patient. Continue monitoring. Time of 1ST Reevaluation: 07:20 Reevaluation 1ST: Unchanged Patient Education/Counseling: Diagnosis, Treatment Family Education/Counseling: No Family Present SEPSIS Sepsis Screen Date sepsis recognized/suspect: Apr 27, 2025 Time Sepsis recognized/suspect: 623 Recent Procedure: No On Antibiotic Therapy: No Respiratory Rate >20: No Heart Rate >90: No Temp<36 C (96.8 F) or >38.3 C: No SBP <90 or MAP <65 mmHG: No New Acute Mental Status Change: No Is the patient on CPAP, BIPAP,: No Physician Orders Paracentesis (04/27/25 06:49) Vital Signs Date Time Temp Pulse Resp B/P (MAP) Pulse Ox O2 Delivery O2 Flow Rate FiO2 04/27/25 06:17 99.0 100 16 146/89 (108) 98 99.0 Departure 1 Departure Time of Disposition: 08:08 Impression: Primary Impression: Alcoholic cirrhosis of liver with ascites Disposition: 01 HOME / SELF CARE / HOMELESS Condition: Good Discharged With: Self Critical Care Note Critical Care Time?: No Stability Stability form required: No Heart Score Heart Score: Heart Score Response (Comments) Value History N/A 0 EKG N/A 0 Age N/A 0 Risk Factors N/A 0 Troponin N/A 0 Total 0 I personally scribed for JUN BRYANT MD ([email or web address]) on 04/27/25 at 07:01. Electronically submitted by Cara Nuñez ([email or web address]). JUN BRYANT MD Apr 27, 2025 07:01
[2025-04-27 07:40] LABS: INR 1.18 (0.9-1.15); Prothrombin Time 12.3 sec (9.3-11.8)
--- NOTE | 2025-04-27 11:15 | DVH ---
PROCEDURE: ULTRASOUND GUIDED PARACENTESIS HISTORY: 54 Male requiring paracentesis. TECHNIQUE: The risks and benefits of the procedure including but not limited to bleeding, infection and injury t o abdominal organs were explained to the patient and written informed consent was obtained. Optimal site for puncture was determined using ultrasound and the area sterilized and draped. Using a 5 Indonesian Yueh catheter, paracentesis was performed in the right lower quadrant abdomen. Approximate ly 11.0 liters of serous fluid was removed. The patient tolerated the procedure well. There were no immediate complications. IMPRESSION: Ultrasound-guided paracentesis with no immediate complications. Performed by Dr. Rosario.
[2025-04-27 11:23] VITALS: BP 136/78; PULSE 73; RESP 18; TEMP 98.5; O2SAT 100
[2025-04-27 14:04] LABS: Body Fluid Red Blood Cells 196 CUMM (0-2000); Body Fluid White Blood Cells 103 CUMM (0-200)
[2025-04-28 13:08] LABS: Protein, Body Fluid 1.8 g/dL (.)
== END 2025-04-27 11:20 | disposition home or self-care (01) ==
LOC: ER 06:17
DX: K70.31 Alcoholic cirrhosis of liver with ascites (principal); I10 Essential (primary) hypertension; F41.9 Anxiety disorder, unspecified; F32.A Depression, unspecified; Z98.890 Other specified postprocedural states; Z79.899 Other long term (current) drug therapy
CPT/HCPCS: 36415; 49083; 76942; 83986; 85610; 85730; 87205; 89051; 99285; C1729

== ENCOUNTER 2025-05-09 12:00 | Inpatient (IN) | payer MEDICAID ==
[~2025-05-09] VITALS: Ht 165.1 cm; Wt 80.5 kg
--- NOTE | 2025-05-09 12:17 | ED.PDOC ---
GI ASSESSMENT HPI Comments 54 y.o male with PMHx of liver cirrhosis and HTN, presents to the ED for a chief complaint of diffused abdominal pain associated with distention x 4 days and nausea with vomiting x today s/p eating breakfast. Patient reports pain is constant, sharp, rating a 9/10 on the pain scale and has no alleviating factors. Patient had a paracentesis 2 weeks ago. Patient denies any diarrhea, fever, chills, bloody stool. Patient admits to drinking alcohol, last drink was yesterday around 1500. Time Seen by MD: 12:10 Primary Care Provider: UNKNOWN Reviewed Notes: Nurses Notes, Medications, Allergies Allergies: Coded Allergies: NO KNOWN ALLERGIES (Unverified , 03/12/20) Home Meds Active Scripts Furosemide (Lasix) 40 Mg Tab, 40 MG PO DAILY for 30 Days, #30 TAB 3 Refills Prov:JN ABRAHAM MD 04/05/25 Bumetanide (Bumetanide) 1 Mg Tab, 1 TAB PO BID for 30 Days, #60 TAB 3 Refills Prov:KAYLAN MELVIN DO 02/21/25 Magnesium Oxide (MAGNESIUM OXIDE) 400 Mg Tab, 400 MG OR DAILY for 30 Days, #30 TAB Prov:PORSCHE CROWE RESIDENT 07/31/24 Potassium Chloride (Potassium Chloride ER) 20 Meq Tab, 20 MEQ PO DAILY for 30 Days, #30 TAB Prov:PORSCHE CROWE RESIDENT 07/31/24 Multiple Vitamin (Multivitamins) Tab, 1 TAB PO DAILY for 90 Days, #90 TAB 0 Refills Prov:ANUJ MULLIGAN PARACHUTE REPAIRER 04/06/24 Sucralfate (CARAFATE) 1 Gm Tab, 1 GM OR QID for 30 Days, #120 TAB Prov:ANUJ MULLIGAN PARACHUTE REPAIRER 04/06/24 Lisinopril (Lisinopril) 20 Mg Tab, 1 TAB PO DAILYPRN for 60 Days, #60 TAB Prov:ANUJ MULLIGAN PARACHUTE REPAIRER 04/06/24 Propranolol HCl (Propranolol Hydrochloride) 20 Mg Tab, 1 TAB PO BID for 60 Days, #120 TAB Prov:ANUJ MULLIGAN PARACHUTE REPAIRER 04/06/24 Reported Medications Pantoprazole Sodium Sesquihydr (Pantoprazole Sodium) 40 Mg Tab, 1 TAB PO BID 04/11/25 Furosemide (Furosemide) 40 Mg Tab, 1 TAB PO DAILY 04/11/25 Cholecalciferol (VITAMIN D3) 2,000 Unit Tab, 1 TAB PO DAILY for 90 Days, #90 02/03/25 Spironolactone (Spironolactone) 25 Mg Tab, 1 TAB PO DAILY for 30 Days, #30 02/03/25 Pantoprazole Sodium Sesquihydr (Protonix) 40 Mg Tab, 1 TAB PO BID for 30 Days, #60 02/02/25 Lactulose (Lactulose) 10 Gm/15 Ml Sharon, ML PO 11/25/24 Acamprosate Calcium (ACAMPROSATE CALCIUM DR) 333 Mg Tab, 333 MG PO QID, TAB 07/31/24 Folic Acid (Folic Acid) 1 Mg Tab, 1 MG PO DAILY, TAB 07/31/24 Thiamine Hcl (VITAMIN B-1) 100 Mg Tb, 1 TAB PO DAILY for 30 Days, #30 07/31/24 Information Source: Patient Mode of Arrival: Ambulatory Timing: Days (4) Duration: Since onset Quality: Sharp Vomitus: Food Particles Stool: Normal Severity: Moderate Recent: None Recent Hx of: None Pain Location: Diffuse Modifying Factors: Nothing Associated sign and symptoms: Nausea, Vomiting, Abdominal Pain Past Medical History PAST MEDICAL HISTORY: Anxiety, Depression, HTN, Kidney Stones, Liver Surgical History: Hernia Repair Family History Family History: Family hx of Cancer Social History Smoker: Non-Smoker Alcohol: Heavy Drugs: Denies Drug Use Lives In: Home Constitutional: denies: chills, diaphoresis, fatigue, fever, malaise, sweats, weakness, others EENTM: denies: blurred vision, double vision, ear bleeding, ear discharge, ear drainage, ear pain, ear ringing, eye pain, eye redness, hearing loss, mouth pain, mouth swelling, nasal discharge, nose bleeding, nose congestion, nose pain, photophobia, tearing, throat pain, throat swelling, voice changes, others Respiratory: denies: cough, hemoptysis, orthopnea, SOB at rest, shortness of breath, SOB with excertion, stridor, wheezing, others Cardiovascular: denies: chest pain, dizzy spells, diaphoresis, Dyspnea on exertion, edema, irregular heart beat, left arm pain, lightheadedness, palpitations, PND, syncope, others Gastrointestinal: reports: abdomen distended, abdominal pain, nausea, vomiting; denies: blood streaked bowels, constipated, diarrhea, dysphagia, difficulty swallowing, hematemesis, melena, poor appetite, poor fluid intake, rectal bleeding, rectal pain, others Genitourinary: denies: burning, dysuria, flank pain, frequency, hematuria, incontinence, penile discharge, penile sore, pain, testicle pain, testicle swelling, urgency, others Neurological: denies: dizziness, fainting, headache, left sided numbness, left sided weakness, numbness, paresthesia, pre-existing deficit, right sided numbness, right sided weakness, seizure, speech problems, tingling, tremors, weakness, others Musculoskeletal: denies: back pain, gout, joint pain, joint swelling, muscle pain, muscle stiffness, neck pain, others Integumetry: denies: bruises, change in color, change in hair/nails, dryness, laceration, lesions, lumps, rash, wounds, others Allergic/Immunocompromised: denies: Difficulty Healing, Frequent Infections, Hives, Itching, others Hematologic/Lymphatic: denies: anemia, blood clots, easy bleeding, easy bruising, swollen glands, others Endocrine: denies: excessive hunger, excessive sweating, excessive thirst, excessive urination, flushing, intolerance to cold, intolerance to heat, unexplained weight gain, unexplained weight loss, others Psychiatric: denies: anxiety, bipolar disorder, depression, hopeless, panic disorder, schizophrenia, sleepless, suicidal, others All Other Systems: Reviewed and Negative Physical Exam General Appearance: Moderate Distress HEENT: Normal ENT Inspection, Pharynx Normal, TMs Normal Neck: Full Range of Motion, Non-Tender, Normal, Normal Inspection Respiratory: Chest Non-Tender, Lungs Clear, No Accessory Muscle Use, No Respiratory Distress, Normal Breath Sounds Cardiovascular: No Edema, No JVD, No Murmur, No Gallop, Normal Peripheral Pulses, Regular Rate/Rhythm Breast Exam: Deferred Gastrointestinal: Distended, No Pulsatile Mass Genitalia: Deferred Pelvic: Deferred Rectal: Deferred Extremities: No calf tenderness, Normal capillary refill, Normal inspection, Normal range of motion, Non-tender, No pedal edema Musculoskeletal : Apperance: Normal Neurologic: Alert, line haul owner operator II-XII nml as Tested, No Motor Deficits, Normal Affect, Normal Mood, No Sensory Deficits Cerebellar Function: Normal Reflexes: Normal Skin: Dry, Normal Color, Warm Lymphatic: No Adenopathy Was a procedure done? Was a procedure done?: No GI differential Dx Differential Diagnosis: Gastroenteritis, Hepatitis, Pancreatitis, Esophageal Varicies X-Ray, Labs, Meds, VS Vital Signs Date Time Temp Pulse Resp B/P (MAP) Pulse Ox O2 Delivery O2 Flow Rate FiO2 05/09/25 14:22 98.7 81 19 130/85 (100) 100 98.7 05/09/25 14:22 81 16 100 Room Air 05/09/25 12:44 87 16 96 Room Air* 0 21 05/09/25 12:11 99.6 130 16 130/90 (103) 96 99.6 05/09/25 12:11 98.3 87 20 128/64 (85) 100 98.3 Lab Test 05/09/25 13:27 Range/Units White Blood Count 4.5 4.4-10.8 10^3/uL Red Blood Count 3.91 L 4.5-5.90 10^6/uL Hemoglobin 14.1 13.5-17.5 g/dL Hematocrit 38.7 L 41.0-53.0 % Mean Corpuscular Volume 99.1 80.0-100.0 fL Mean Corpuscular Hemoglobin 36.0 H 28.0-32.0 pg Mean Corpuscular Hemoglobin Concent 36.4 H 32.0-36.0 g/dL Red Cell Distribution Width 13.8 11.8-14.3 % Platelet Count 131 L 140-450 10^3/uL Mean Platelet Volume 6.0 L 6.9-10.8 fL Neutrophils (%) (Auto) 70.1 37.0-80.0 % Lymphocytes (%) (Auto) 16.3 10.0-50.0 % Monocytes (%) (Auto) 11.6 0.0-12.0 % Eosinophils (%) (Auto) 1.2 0.0-7.0 % Basophils (%) (Auto) 0.8 0.0-2.0 % Neutrophils # (Auto) 3.1 1.6-8.6 10 ^3/uL Lymphocytes # (Auto) 0.7 0.4-5.4 10 ^3/uL Monocytes # (Auto) 0.5 0-1.3 10 ^3/uL Eosinophils # (Auto) 0.1 0-0.8 10 ^3/uL Basophils # (Auto) 0 0-0.2 10 ^3/uL Nucleated Red Blood Cells 0.1 % Prothrombin Time 12.4 H 9.3-11.8 sec Prothrombin Time INR 1.19 H 0.9-1.15 Activated Partial Thromboplast Time 29.1 24.5-34.5 SEC Sodium Level 121 L 136-145 mmol/L Potassium Level 4.5 3.5-5.1 mmol/L Chloride Level 91 L 98-107 mmol/L Carbon Dioxide Level 21 20-31 mmol/L Anion Gap 9 5-15 Blood Urea Nitrogen 9 9-23 mg/dL Creatinine 1.00 0.700-1.30 mg/dL Glomerular Filtration Rate Calc 90 >90 mL/min BUN/Creatinine Ratio 9.0 L 10.0-20.0 Serum Glucose 115 H 74-106 mg/dL Calcium Level 8.5 L 8.7-10.4 mg/dL Total Bilirubin 7.5 H 0.2-1.0 mg/dL Aspartate Amino Transferase (AST) 94 H 13-40 U/L Alanine Aminotransferase (ALT) 33 7-40 U/L Alkaline Phosphatase 134 H 46-116 U/L Total Protein 7.7 5.7-8.2 g/dL Albumin 3.2 3.2-4.8 g/dL Lipase 47 12-53 U/L Ultrasound was done of the abdominal area which shows: Findings/Impression: Moderate volume ascites seen in all 4 quadrants. The patient's CBC is within normal limits The chemistry panel is within normal limits The INR is 1.19 The total bilirubin is elevated at 7.5 The liver enzymes are somewhat elevated as well At this time, the patient is being admitted The patient will require a paracentesis Images Reviewed?: Images reviewed and evaluated by me Time of 1ST Reevaluation: 12:17 Reevaluation 1ST: Unchanged Patient Education/Counseling: Diagnosis, Treatment, Prognosis Family Education/Counseling: No Family Present SEPSIS Sepsis Screen Physician Orders Urinalysis (05/09/25 12:13) Heplock Iv (05/09/25 12:13) Paracentesis (05/09/25 12:13) Abdomen Limited (05/09/25 ) Paracentesis (05/10/25 08:00) Vital Signs Date Time Temp Pulse Resp B/P (MAP) Pulse Ox O2 Delivery O2 Flow Rate FiO2 05/09/25 14:22 98.7 81 19 130/85 (100) 100 98.7 05/09/25 14:22 81 16 100 Room Air 05/09/25 12:44 87 16 96 Room Air* 0 21 05/09/25 12:11 99.6 130 16 130/90 (103) 96 99.6 05/09/25 12:11 98.3 87 20 128/64 (85) 100 98.3 Laboratory Tests Test 05/09/25 13:27 White Blood Count 4.5 10^3/uL (4.4-10.8) Departure 1 Departure Time of Disposition: 16:51 Impression: Primary Impression: Abdominal ascites Qualified Codes: R18.8 - Other ascites Additional Impression: Acute abdominal pain Disposition: ADMITTED INPATIENT Admit to: Med Surg Condition: Fair Critical Care Note Critical Care Time?: No Stability Stability form required: Yes Unstable for transfer: ED Physician Assesment (Clinical assesment) I personally scribed for RG LBOUNT MD ([email or web address]) on 05/09/25 at 12:17. Electronically submitted by Kim Marina ([facility]). RG BLOUNT MD May 09, 2025 12:17
[2025-05-09 12:44] VITALS: PULSE 87; RESP 16; O2SAT 96
--- NOTE | 2025-05-09 13:24 | DVH ---
EXAM: US ABDOMEN LIMITED Clinical History: FLUID CHECK FOR PARACENTESIS Comparison: US LIVER on DOS: 04/11/25, US ABDOMEN LIMITED on DOS: 04/04/25, US ABDOMEN LIMITED on DOS: 02/02/25 Technique: Grayscale ultrasound of the abdomen performed with color Doppler and spectral/pulsed wave form as indicated. Findings/Impression: Moderate volume ascites seen in all 4 quadrants.
[2025-05-09 13:49] LABS: Hematocrit 38.7 % (41.0-53.0); Hemoglobin 14.1 g/dL (13.5-17.5); Mean Corpuscular Hemoglobin 36.0 pg (28.0-32.0); Mean Corpuscular Volume 99.1 fL (80.0-100.0); Nucleated Red Blood Cells % 0.1 %
[2025-05-09 14:04] LABS: INR 1.19 (0.9-1.15); Partial Thromboplastin Time 29.1 SEC (24.5-34.5); Prothrombin Time 12.4 sec (9.3-11.8)
[2025-05-09 14:08] LABS: Alanine Aminotransferase 33 U/L (7-40); Albumin 3.2 g/dL (3.2-4.8); Anion Gap 9 (5-15); BUN/Creatinine Ratio 9.0 (10.0-20.0); Carbon Dioxide 21 mmol/L (20-31); Lipase 47 U/L (12-53); Potassium 4.5 mmol/L (3.5-5.1); Total Protein 7.7 g/dL (5.7-8.2)
[2025-05-09 14:13] LABS: Alkaline Phosphatase 134 U/L (46-116); Bilirubin, Total 7.5 mg/dL (0.2-1.0); Blood Urea Nitrogen 9 mg/dL (9-23); Calcium 8.5 mg/dL (8.7-10.4); Chloride 91 mmol/L (98-107); Glucose 115 mg/dL (74-106); Sodium 121 mmol/L (136-145)
[2025-05-09] MEDS: MORPHINE SULFATE 4 MG/ML SYR/VIAL IV ONE (18:00)
[2025-05-09] MEDS: ONDANSETRON HCL 4 MG/2 ML VIAL IV ONE (18:00)
[2025-05-09] MEDS ORDERED: ONDANSETRON HCL 4 MG/2 ML VIAL IV PRN (18:45)
[2025-05-09 21:00] VITALS: BP 149/91; PULSE 82; RESP 16; TEMP 98.9; O2SAT 100
--- NOTE | 2025-05-09 21:34 | DVHHP2 ---
History of Present Illness Reason for Visit: Abdominal distention History of Present Illness 54-year-old male with a history of alcoholic liver cirrhosis presents for evaluation of abdominal distention. Patient reports having his last paracentesis two weeks ago. Now he presents with recurrent ascites with abdominal discomfort. Denies chest pain or shortness for breath. No fever. Past Medical History Hypertension, depression, kidney stones, liver cirrhosis Past Surgical History Hernia repair Family History Noncontributory Smoke: No ALCOHOL: heavy Drugs: None Lives: with Family Review of Systems Review of Systems Review of systems are currently negative otherwise addressed in HPI. Allergies: Coded Allergies: NO KNOWN ALLERGIES (Unverified , 03/12/20) Medications Current Medications Medications Dose Ordered Sig/Adama Route Start Time Stop Time Status Last Admin Dose Admin Propranolol HCl 20 mg BID PO 05/09/25 22:00 Furosemide 40 mg DAILY PO 05/10/25 10:00 Folic Acid 1 mg DAILY PO 05/10/25 10:00 Thiamine HCl 100 mg DAILY PO 05/10/25 10:00 Lisinopril 20 mg DAILY PO 05/10/25 10:00 Pantoprazole Sodium 40 mg DAILY@0600 PO 05/10/25 06:00 Spironolactone 25 mg DAILY PO 05/10/25 10:00 Ondansetron HCl 4 mg Q4HP PRN IV 05/09/25 18:45 Tramadol HCl 50 mg Q6HP PRN PO 05/09/25 18:45 Exam Vital Signs Vital Signs Date Time Temp Pulse Resp B/P (MAP) Pulse Ox O2 Delivery O2 Flow Rate FiO2 05/09/25 19:29 97.8 82 17 140/90 (107) 100 97.8 05/09/25 14:22 Room Air 05/09/25 12:44 0 21 Exam Gen: 54-year-old male in mild distress Skin: Warm, dry, normal color and texture, no rash. HEENT: Normocephalic atraumatic, mucous membranes moist and pink. Neck: Cervical and supraclavicular nodes normal without enlargement, trachea is midline, thyroid gland is normal without masses. Pulmonary: Clear to auscultation and percussion bilaterally. Cardiac: Regular rate and rhythm. No murmur Abdomen: Soft, nontender, distended with ascites, bowel sounds present all 4 quadrants, no guarding, no rigidity, no organomegaly. Extremities: No cyanosis, clubbing, no edema Neuro: Cranial nerves II through XII grossly intact, normal affect and speech, no focal motor deficits. Labs/Xrays ORDERING PHYSICIAN: RG BLOUNT MD PROCEDURE(s): ABDL - ABDOMEN LIMITED REASON: FLUID CHECK FOR PARACENTESIS ORDER NUMBER(s): [id number], ACCESSION NUMBER(s): [id number] EXAM: US ABDOMEN LIMITED Clinical History: FLUID CHECK FOR PARACENTESIS Comparison: US LIVER on DOS: 04/11/25, US ABDOMEN LIMITED on DOS: 04/04/25, US ABDOMEN LIMITED on DOS: 02/02/25 Technique: Grayscale ultrasound of the abdomen performed with color Doppler and spectral/pulsed waveform as indicated. Findings/Impression: Moderate volume ascites seen in all 4 quadrants. Labs Test 05/09/25 19:20 05/09/25 13:27 Range/Units Ammonia 18 11-32 umol/L White Blood Count 4.5 4.4-10.8 10^3/uL Red Blood Count 3.91 L 4.5-5.90 10^6/uL Hemoglobin 14.1 13.5-17.5 g/dL Hematocrit 38.7 L 41.0-53.0 % Mean Corpuscular Volume 99.1 80.0-100.0 fL Mean Corpuscular Hemoglobin 36.0 H 28.0-32.0 pg Mean Corpuscular Hemoglobin Concent 36.4 H 32.0-36.0 g/dL Red Cell Distribution Width 13.8 11.8-14.3 % Platelet Count 131 L 140-450 10^3/uL Mean Platelet Volume 6.0 L 6.9-10.8 fL Neutrophils (%) (Auto) 70.1 37.0-80.0 % Lymphocytes (%) (Auto) 16.3 10.0-50.0 % Monocytes (%) (Auto) 11.6 0.0-12.0 % Eosinophils (%) (Auto) 1.2 0.0-7.0 % Basophils (%) (Auto) 0.8 0.0-2.0 % Neutrophils # (Auto) 3.1 1.6-8.6 10 ^3/uL Lymphocytes # (Auto) 0.7 0.4-5.4 10 ^3/uL Monocytes # (Auto) 0.5 0-1.3 10 ^3/uL Eosinophils # (Auto) 0.1 0-0.8 10 ^3/uL Basophils # (Auto) 0 0-0.2 10 ^3/uL Nucleated Red Blood Cells 0.1 % Prothrombin Time 12.4 H 9.3-11.8 sec Prothrombin Time INR 1.19 H 0.9-1.15 Activated Partial Thromboplast Time 29.1 24.5-34.5 SEC Sodium Level 121 L 136-145 mmol/L Potassium Level 4.5 3.5-5.1 mmol/L Chloride Level 91 L 98-107 mmol/L Carbon Dioxide Level 21 20-31 mmol/L Anion Gap 9 5-15 Blood Urea Nitrogen 9 9-23 mg/dL Creatinine 1.00 0.700-1.30 mg/dL Glomerular Filtration Rate Calc 90 >90 mL/min BUN/Creatinine Ratio 9.0 L 10.0-20.0 Serum Glucose 115 H 74-106 mg/dL Calcium Level 8.5 L 8.7-10.4 mg/dL Total Bilirubin 7.5 H 0.2-1.0 mg/dL Aspartate Amino Transferase (AST) 94 H 13-40 U/L Alanine Aminotransferase (ALT) 33 7-40 U/L Alkaline Phosphatase 134 H 46-116 U/L Total Protein 7.7 5.7-8.2 g/dL Albumin 3.2 3.2-4.8 g/dL Lipase 47 12-53 U/L Assessment/Plan Assessment/Plan Assessment Alcoholic liver cirrhosis with ascites Jaundice Transaminitis Hyponatremia Plan Admit the patient to [facility] to the hospitalist Resume home medications Radiology consultation Continue treatment per orders. Plan discussed with: Patient My Orders Orders - HARSHA OBREGON AGACNP Procedure Category Date Status Time * Radiologist Consult CONS 05/09/25 Transmitted 18:42 Hepatic Diet DIET 05/10/25 Transmitted (50gmpro,2gmna) Breakfast Propranolol Hcl PHA 05/09/25 In Process Tablet (Inderal 22:00 Furosemide Tablet PHA 05/10/25 In Process (Lasix Tablet) 10:00 Folic Acid Tablet PHA 05/10/25 In Process 10:00 Thiamine Tab PHA 05/10/25 In Process 10:00 Lisinopril Tablet PHA 05/10/25 In Process (Zestril Tablet) 10:00 Pantoprazole Tablet PHA 05/10/25 In Process (Protonix Tablet) 06:00 Spironolactone PHA 05/10/25 In Process (Aldactone) 10:00 Ondansetron Hcl PHA 05/09/25 In Process (Zofran) 18:45 Comprehensive LAB 05/10/25 Verified Metabolic Panel 04:00 Condition: Stable JOSE 05/09/25 In Process 18:42 Bedrest With Bathroom JOSE 05/09/25 In Process Privileg 18:42 Tramadol Hcl (Ultram) PHA 05/09/25 In Process 18:45 Admit ADMIT 05/09/25 Transmitted 19:39 Date of Service: May 09, 2025 Billing Provider: HARSHA OBREGON Common Visit Codes: [id number] INP/OBS CARE (MOD) HARSHA OBREGON May 09, 2025 21:34
[2025-05-09 22:22] VITALS: PULSE 82; RESP 16; O2SAT 100
[2025-05-09] MEDS: PROPRANOLOL HCL 20 MG TAB PO SCH (22:41)
[2025-05-10] VITALS (11 sets, daily range): BP systolic 82–144; BP diastolic 39–84; PULSE 73–85; RESP 16–20; TEMP 97.8–99.5; O2SAT 92–100
[2025-05-10] MEDS: PANTOPRAZOLE 40 MG TAB PO SCH (05:33)
--- NOTE | 2025-05-10 09:10 | DVH ---
PROCEDURE: ULTRASOUND GUIDED PARACENTESIS HISTORY: 54 Male requiring paracentesis. TECHNIQUE: The risks and benefits of the procedure including but not limited to bleeding, infection and injury t o abdominal organs were explained to the patient and written informed consent was obtained. Optimal site for puncture was determined using ultrasound and the area sterilized and draped. Using a 5 Irish Yueh catheter, paracentesis was performed in the right lower quadrant abdomen. Approximate ly 10.4 liters of serous fluid was removed. The patient tolerated the procedure well. There were no immediate complications. IMPRESSION: Ultrasound-guided paracentesis with no immediate complications. Procedure performed by Dr. Rosario.
[2025-05-10] MEDS: ALBUMIN 25% 100 ML IV SCH ×2 (09:30→13:09)
[2025-05-10] MEDS: THIAMINE HCL 100 MG TAB PO SCH (09:30)
[2025-05-10] MEDS: FOLIC ACID 1 MG TAB PO SCH (09:31)
[2025-05-10] MEDS: SPIRONOLACTONE 25 MG TAB PO SCH (09:31)
[2025-05-10] MEDS: FUROSEMIDE 40 MG TAB PO SCH (09:31)
[2025-05-10] MEDS: LISINOPRIL 20 MG TAB PO SCH (09:32)
[2025-05-10 09:55] LABS: Alanine Aminotransferase 27 U/L (7-40); Alkaline Phosphatase 104 U/L (46-116); Anion Gap 11 (5-15); BUN/Creatinine Ratio 10.3 (10.0-20.0); Blood Urea Nitrogen 14 mg/dL (9-23); Potassium 4.2 mmol/L (3.5-5.1); Total Protein 6.1 g/dL (5.7-8.2)
[2025-05-10 09:56] LABS: Albumin 2.5 g/dL (3.2-4.8); Bilirubin, Total 6.0 mg/dL (0.2-1.0); Calcium 8.5 mg/dL (8.7-10.4); Carbon Dioxide 19 mmol/L (20-31); Chloride 92 mmol/L (98-107); Glucose 159 mg/dL (74-106); Sodium 122 mmol/L (136-145)
--- NOTE | 2025-05-10 10:41 | DVHINCON2 ---
Date of service: May 10, 2025 Referring Physician Hospitalist Reason for Consultation urinary retention History of Present Illness History Source: Patient, RN Notes, MD Notes, Old Records Exam Limitations: No limitations HPI 54 yo male with alcoholic liver cirrhosis admitted for abdominal pain and in need of paracentesis. Pt was bladder scanned and was noted to have ">650 mls" residual. pt is voiding without issue. Bladder scan was reporting ascitic fluid collection not bladder volume. Home Meds Active Scripts Furosemide (Lasix) 40 Mg Tab, 40 MG PO DAILY for 30 Days, #30 TAB 3 Refills Prov:JN ABRAHAM MD 04/05/25 Bumetanide (Bumetanide) 1 Mg Tab, 1 TAB PO BID for 30 Days, #60 TAB 3 Refills Prov:KAYLAN MELVIN DO 02/21/25 Magnesium Oxide (MAGNESIUM OXIDE) 400 Mg Tab, 400 MG OR DAILY for 30 Days, #30 TAB Prov:PORSCHE CROWE RESIDENT 07/31/24 Potassium Chloride (Potassium Chloride ER) 20 Meq Tab, 20 MEQ PO DAILY for 30 Days, #30 TAB Prov:PORSCHE CROWE RESIDENT 07/31/24 Multiple Vitamin (Multivitamins) Tab, 1 TAB PO DAILY for 90 Days, #90 TAB 0 Refills Prov:ANUJ MULLIGAN CHANNEL SUPERVISOR 04/06/24 Sucralfate (CARAFATE) 1 Gm Tab, 1 GM OR QID for 30 Days, #120 TAB Prov:ANUJ MULLIGAN CHANNEL SUPERVISOR 04/06/24 Lisinopril (Lisinopril) 20 Mg Tab, 1 TAB PO DAILYPRN for 60 Days, #60 TAB Prov:ANUJ MULLIGAN CHANNEL SUPERVISOR 04/06/24 Propranolol HCl (Propranolol Hydrochloride) 20 Mg Tab, 1 TAB PO BID for 60 Days, #120 TAB Prov:ANUJ MULLIGAN CHANNEL SUPERVISOR 04/06/24 Reported Medications Pantoprazole Sodium Sesquihydr (Pantoprazole Sodium) 40 Mg Tab, 1 TAB PO BID 04/11/25 Furosemide (Furosemide) 40 Mg Tab, 1 TAB PO DAILY 04/11/25 Cholecalciferol (VITAMIN D3) 2,000 Unit Tab, 1 TAB PO DAILY for 90 Days, #90 02/03/25 Spironolactone (Spironolactone) 25 Mg Tab, 1 TAB PO DAILY for 30 Days, #30 02/03/25 Pantoprazole Sodium Sesquihydr (Protonix) 40 Mg Tab, 1 TAB PO BID for 30 Days, #60 02/02/25 Lactulose (Lactulose) 10 Gm/15 Ml Sharon, ML PO 11/25/24 Acamprosate Calcium (ACAMPROSATE CALCIUM DR) 333 Mg Tab, 333 MG PO QID, TAB 07/31/24 Folic Acid (Folic Acid) 1 Mg Tab, 1 MG PO DAILY, TAB 07/31/24 Thiamine Hcl (VITAMIN B-1) 100 Mg Tb, 1 TAB PO DAILY for 30 Days, #30 07/31/24 Past Medical History Patient Family History: FH: cancer G8 MOTHER, Hypertension G8 FATHER, , Onset:Unknown G8 FATHER, Hypertension G8 FATHER, , Onset:Unknown G8 FATHER, Seizure disorder G8 BROTHER, (unknown) H&P Exam Vital Signs Vital Signs Date Time Temp Pulse Resp B/P (MAP) Pulse Ox O2 Delivery O2 Flow Rate FiO2 05/10/25 09:33 99 116/80 05/10/25 09:00 98.0 20 99 98.0 05/09/25 22:22 Room Air* 0 21 General Appeara: Well developed, Well nourished, Normal Appearance, Obese Neuro/Mental St: Alert, Oriented Appearance: Appropriate appearance, Appropriate insight Eye contact/ Speech: Cooperative, Good eye contact, Normal speech Skin Exam: Normal inspection, Normal color, Warm/dry Labs/Xrays Labs Test 05/10/25 09:14 05/10/25 09:00 05/09/25 19:20 05/09/25 13:27 Range/Units Sodium Level 122 L 136-145 mmol/L Potassium Level 4.2 3.5-5.1 mmol/L Chloride Level 92 L 98-107 mmol/L Carbon Dioxide Level 19 L 20-31 mmol/L Anion Gap 11 5-15 Blood Urea Nitrogen 14 9-23 mg/dL Creatinine 1.36 H 0.700-1.30 mg/dL Glomerular Filtration Rate Calc 62 >90 mL/min BUN/Creatinine Ratio 10.3 10.0-20.0 Serum Glucose 159 H 74-106 mg/dL Calcium Level 8.5 L 8.7-10.4 mg/dL Total Bilirubin 6.0 H 0.2-1.0 mg/dL Aspartate Amino Transferase (AST) 70 H 13-40 U/L Alanine Aminotransferase (ALT) 27 7-40 U/L Alkaline Phosphatase 104 46-116 U/L Total Protein 6.1 5.7-8.2 g/dL Albumin 2.5 L 3.2-4.8 g/dL Plasma/Serum Blood Alcohol < 3.0 <10 mg/dL Ammonia 18 11-32 umol/L White Blood Count 4.5 4.4-10.8 10^3/uL Red Blood Count 3.91 L 4.5-5.90 10^6/uL Hemoglobin 14.1 13.5-17.5 g/dL Hematocrit 38.7 L 41.0-53.0 % Mean Corpuscular Volume 99.1 80.0-100.0 fL Mean Corpuscular Hemoglobin 36.0 H 28.0-32.0 pg Mean Corpuscular Hemoglobin Concent 36.4 H 32.0-36.0 g/dL Red Cell Distribution Width 13.8 11.8-14.3 % Platelet Count 131 L 140-450 10^3/uL Mean Platelet Volume 6.0 L 6.9-10.8 fL Neutrophils (%) (Auto) 70.1 37.0-80.0 % Lymphocytes (%) (Auto) 16.3 10.0-50.0 % Monocytes (%) (Auto) 11.6 0.0-12.0 % Eosinophils (%) (Auto) 1.2 0.0-7.0 % Basophils (%) (Auto) 0.8 0.0-2.0 % Neutrophils # (Auto) 3.1 1.6-8.6 10 ^3/uL Lymphocytes # (Auto) 0.7 0.4-5.4 10 ^3/uL Monocytes # (Auto) 0.5 0-1.3 10 ^3/uL Eosinophils # (Auto) 0.1 0-0.8 10 ^3/uL Basophils # (Auto) 0 0-0.2 10 ^3/uL Nucleated Red Blood Cells 0.1 % Prothrombin Time 12.4 H 9.3-11.8 sec Prothrombin Time INR 1.19 H 0.9-1.15 Activated Partial Thromboplast Time 29.1 24.5-34.5 SEC Lipase 47 12-53 U/L Assessment/Plan Problem List: (1) Abdominal ascites (2) Liver cirrhosis Plan no urologic intervention indicated cleared from urology standpoint Plan discussed with: Patient, Other NADIA HAWLEY NP May 10, 2025 10:41
--- NOTE | 2025-05-10 14:04 | DVHPNRES ---
Progress Note Date Seen: May 10, 2025 Resident Creating Document: LEYDA CALZADA RESIDENT Medical Necessity Reason Pt with a Central, PICC or Fol: No Subjective Review of Systems 54-year-old male with a history of alcoholic liver cirrhosis presents for evaluation of abdominal distention. Patient reports having his last paracentesis 2 weeks ago. He presents with recurrent ascites and abdominal discomfort with no relieving factors but aggravated by lying down and moving. Patient Reports it was associated with nausea but no vomiting. He denies chest pain, shortness of breath, Chills or fever. PMH: Hypertension, liver cirrhosis PSH: hernia repair Family history: Reviewed and noncontributory Social history: Patient lives with family. She reports stopping smoking 30 years ago. He does not smoke now. Patient denies taking any drugs. Patient used to take 1 bottle of Tequila which she finished every 2 days as well as14-15 cans of beer per day before his cirrhosis. he continues to drink 1-2 beers per day. Alleries: none Home medication: Spironolactone, propranolol, lactulose, lisinopril ROS: Patient reports feeling much better after paracentesis done. No new complaints reported at this time. Overnight events reviewed. Rest of the ROS is negative. Patient reports: Feels better Objective vital signs Vital Sign Date Time Temp Pulse Resp B/P (MAP) Pulse Ox O2 Delivery O2 Flow Rate FiO2 05/10/25 09:33 99 116/80 05/10/25 09:00 98.0 20 99 98.0 05/10/25 07:30 Room Air* 0 21 Total Intake and Output 05/09/25 05/09/25 05/10/25 15:00 23:00 07:00 Intake Total 800 ml Balance 800 ml medications Current Medications Medications Dose Ordered Sig/Adama Route Start Time Stop Time Status Last Admin Dose Admin Propranolol HCl 20 mg BID PO 05/09/25 22:00 05/10/25 09:33 20 MG Furosemide 40 mg DAILY PO 05/10/25 10:00 05/10/25 09:31 40 MG Folic Acid 1 mg DAILY PO 05/10/25 10:00 05/10/25 09:31 1 MG Thiamine HCl 100 mg DAILY PO 05/10/25 10:00 05/10/25 09:30 100 MG Lisinopril 20 mg DAILY PO 05/10/25 10:00 05/10/25 09:32 20 MG Pantoprazole Sodium 40 mg DAILY@0600 PO 05/10/25 06:00 05/10/25 05:33 40 MG Spironolactone 25 mg DAILY PO 05/10/25 10:00 05/10/25 09:31 25 MG Ondansetron HCl 4 mg Q4HP PRN IV 05/09/25 18:45 Tramadol HCl 50 mg Q6HP PRN PO 05/09/25 18:45 Chlordiazepoxide HCl 25 mg Q6HPRN PRN PO 05/09/25 21:45 Examination Pt is lying on bed General Appearance: Alert, Oriented X3, Cooperative, Not in acute distress HEENT: Atraumatic, Mucous membranes moist/pink Respiratory: Clear to auscultation, Normal air movement, No added sounds Cardiovascular: Regular rate, Normal S1, Normal S2, No murmurs Abdominal: Active bowel sounds, Soft, Mild distention, no tenderness, presence of umblical hernia, reducible abdominal compression bandage is on Extremities: No edema, Normal pulses, No tenderness/swelling Skin: No Significant rash, except past surgical scars Neuro: Normal speech, sensorimotor deficits none Psych/Mental Status: Mental status NL, Mood NL Nurse was there as chief informatics officer during examination laboratory and microbiology Laboratory Tests 05/10/25 09:14 05/09/25 13:27 Test 05/10/25 09:14 Range/Units Serum Glucose 159 H 74-106 mg/dL Labs and/or images reviewed: Labs reviewed by me, Image(s) reviewed by me Problem List/Assessment/Plan Problem List/Assessment/Plan # Chronic Decompensated alcoholic liver cirrhosis with ascites # Transaminitis # Moderate Hyponatremia, asymptomatic, dilutional, probably secondary to above -MELD Score is 16:6% three-month mortality -[facility] Discriminant for: 13.9 good prognosis -USG shows moderate volume ascites seen in all 4 quadrants. -10 L ascitic fluid taken out during paracentesis, sent for cultures -2 bags albumin ordered -Monitor labs -Repeat BNP #Alcohol withdrawal #Alcohol dependence - assess CIWA score - Ativan as needed - patient counseled about cessation of alcohol - Thiamine and folic acid #NIESHA likely due to VMN -monitor that for now GI prophylaxis: Protonix DVT prophylaxis: not indicated Diet: low-salt diet, cardiac diet Goals of care discussed with the patient for more than 27 minutes: Full code status Case discussed with Dr. Calzada patient and nurse. Plan discussed with: Patient, Other (RN) Date of Service: May 10, 2025 Billing Provider: JOSE CALZADA MD Common Visit Codes: [id number] INP/OBS CARE(HIGH) LEYDA CALZADA RESIDENT May 10, 2025 14:04 AZAM ANGELES RESIDENT May 10, 2025 14:28 JOSE CALZADA MD May 10, 2025 18:52
[2025-05-10 15:35] LABS: Potassium 4.3 mmol/L (3.5-5.1)
[2025-05-10 15:36] LABS: Anion Gap 6 (5-15); Calcium 7.6 mg/dL (8.7-10.4); Carbon Dioxide 23 mmol/L (20-31); Chloride 93 mmol/L (98-107); Sodium 122 mmol/L (136-145)
[2025-05-10 15:41] LABS: BUN/Creatinine Ratio 8.2 (10.0-20.0); Blood Urea Nitrogen 16 mg/dL (9-23)
[2025-05-10 15:43] LABS: Glucose 158 mg/dL (74-106)
[2025-05-10] MEDS: ALBUMIN 25% 50 ML IV ONE (16:32)
[2025-05-10] MEDS: SODIUM CHLORIDE 0.9% 500 ML IV ONE (18:19)
[2025-05-10] MEDS: ALBUMIN 25% 100 ML IV ONE (18:22)
[2025-05-10] MEDS: MIDODRINE HCL 10 MG TAB PO ONE ×2 (20:06→22:56)
[2025-05-10 22:57] LABS: Urine Protein, UAD 1+ (Negative)
[2025-05-10] MEDS: SODIUM CHLORIDE 0.9% 250 ML IV ONE (22:57)
[2025-05-10 23:10] LABS: Benzodiazephine Screen, Urine Pos (NEGATIVE)
[2025-05-10 23:11] LABS: Amphetamine Screen, Urine Neg (NEGATIVE)
[2025-05-10 23:12] LABS: Opiate Scree,Urine Neg (NEGATIVE)
[2025-05-10 23:13] LABS: Barbiturate Scree,Urine Neg (NEGATIVE); Cocaine Screen, Urine Neg (NEGATIVE); Phencyclidine Screen, Urine Neg (NEGATIVE)
[2025-05-11] VITALS (39 sets, daily range): BP systolic 64–109; BP diastolic 37–61; PULSE 60–81; RESP 16–24; TEMP 97.9–98.7; O2SAT 91–100
[2025-05-11 01:39] LABS: Cannabinoid Screen, Urine Neg (NEGATIVE)
[2025-05-11] MEDS: MIDODRINE HCL 10 MG TAB PO SCH ×2 (05:34→17:18)
[2025-05-11] MEDS: MIDODRINE HCL 10 MG TAB PO ONE (09:06)
[2025-05-11] MEDS: SODIUM CHLORIDE 0.9% 250 ML IV ONE (09:07)
[2025-05-11 10:08] LABS: Hematocrit 27.2 % (41.0-53.0); Hemoglobin 9.7 g/dL (13.5-17.5); Mean Corpuscular Hemoglobin 36.2 pg (28.0-32.0); Mean Corpuscular Volume 101.4 fL (80.0-100.0); Nucleated Red Blood Cells % 0.1 %
[2025-05-11 10:26] LABS: Alanine Aminotransferase 16 U/L (7-40); Albumin 2.1 g/dL (3.2-4.8); Alkaline Phosphatase 63 U/L (46-116); Anion Gap 6 (5-15); BUN/Creatinine Ratio 9.2 (10.0-20.0); Bilirubin, Total 3.4 mg/dL (0.2-1.0); Blood Urea Nitrogen 24 mg/dL (9-23); Calcium 7.8 mg/dL (8.7-10.4); Carbon Dioxide 22 mmol/L (20-31); Chloride 98 mmol/L (98-107); Glucose 137 mg/dL (74-106); Magnesium 1.3 mg/dL (1.6-2.6); Potassium 3.9 mmol/L (3.5-5.1); Sodium 126 mmol/L (136-145); Total Protein 4.2 g/dL (5.7-8.2)
[2025-05-11] MEDS: SODIUM CHLORIDE 0.9% 500 ML IV ONE (10:45)
[2025-05-11] MEDS: MAGNESIUM SULFATE 1GM/100ML 100 ML IV SCH (12:00)
[2025-05-11] MEDS: ALBUMIN 25% 100 ML IV ONE ×2 (13:00→13:09)
[2025-05-11 13:07] LABS: Glucose, Body Fluid 103.0 mg/dL (.); LD, Body Fluid 49.0 IU/L (.)
--- NOTE | 2025-05-11 15:13 | DVHPNRES ---
Progress Note Date Seen: May 11, 2025 Resident Creating Document: LEYDA CALZADA RESIDENT Medical Necessity Reason Pt with a Central, PICC or Fol: No Subjective Review of Systems 54-year-old male with a history of alcoholic liver cirrhosis presents for evaluation of abdominal distention. Patient reports having his last paracentesis 2 weeks ago. He presents with recurrent ascites and abdominal discomfort with no relieving factors but aggravated by lying down and moving. Patient Reports it was associated with nausea but no vomiting. He denies chest pain, shortness of breath, Chills or fever. PMH: Hypertension, liver cirrhosis PSH: hernia repair Family history: Reviewed and noncontributory Social history: Patient lives with family. She reports stopping smoking 30 years ago. He does not smoke now. Patient denies taking any drugs. Patient used to take 1 bottle of Tequila which she finished every 2 days as well as14-15 cans of beer per day before his cirrhosis. he continues to drink 1-2 beers per day. Alleries: none Home medication: Spironolactone, propranolol, lactulose, lisinopril ROS: Patient seen and reviewed by me in the bedside. Overnight events reviewed. Patient reports he is feeling alright, but that his abdomen has started to swell slightly again. Rest of the ROS is negative. Objective vital signs Vital Sign Date Time Temp Pulse Resp B/P (MAP) Pulse Ox O2 Delivery O2 Flow Rate FiO2 05/11/25 12:51 97.9 75 20 73/39 (50) 91 97.9 05/11/25 08:00 Room Air* 0 21 Total Intake and Output 05/10/25 05/10/25 05/11/25 15:00 23:00 07:00 Intake Total 1750 ml 250 ml Balance 1750 ml 250 ml medications Current Medications Medications Dose Ordered Sig/Adama Route Start Time Stop Time Status Last Admin Dose Admin Folic Acid 1 mg DAILY PO 05/10/25 10:00 05/11/25 09:06 1 MG Thiamine HCl 100 mg DAILY PO 05/10/25 10:00 05/11/25 09:06 100 MG Pantoprazole Sodium 40 mg DAILY@0600 PO 05/10/25 06:00 05/11/25 05:34 40 MG Ondansetron HCl 4 mg Q4HP PRN IV 05/09/25 18:45 Tramadol HCl 50 mg Q6HP PRN PO 05/09/25 18:45 Chlordiazepoxide HCl 25 mg Q6HPRN PRN PO 05/09/25 21:45 Midodrine 5 mg TID@0600,1200,1800 PO 05/11/25 06:00 05/11/25 11:40 5 MG Examination Pt is lying on bed General Appearance: Alert, Oriented X3, Cooperative, Not in acute distress HEENT: Atraumatic, Mucous membranes moist/pink Respiratory: Clear to auscultation, Normal air movement, No added sounds Cardiovascular: Regular rate, Normal S1, Normal S2, No murmurs Abdominal: Active bowel sounds, Soft, Mild distention, no tenderness, presence of umblical hernia, reducible abdominal compression bandage is on Extremities: No edema, Normal pulses, No tenderness/swelling Skin: No Significant rash, except past surgical scars Neuro: Normal speech, sensorimotor deficits none Psych/Mental Status: Mental status NL, Mood NL Nurse was there as extractions technologist during examination laboratory and microbiology Laboratory Tests 05/11/25 09:45 Test 05/11/25 09:45 Range/Units Serum Glucose 137 H 74-106 mg/dL Microbiology Date/Time Source Procedure Growth Status 05/10/25 09:00 Ascities Fluid Gram Stain - Final Resulted 05/10/25 09:00 Ascities Fluid Body Fluid Culture - Preliminary Resulted Labs and/or images reviewed: Labs reviewed by me, Image(s) reviewed by me Problem List/Assessment/Plan Problem List/Assessment/Plan # Acute renal failure with hypotension #NIESHA likely due to VMN -Monitor labs -Midodrine given -IV fluids given # Chronic Decompensated alcoholic liver cirrhosis with ascites # Transaminitis # Moderate Hyponatremia, asymptomatic, dilutional, probably secondary to above -MELD Score is 16:6% three-month mortality -[facility] Discriminant for: 13.9 good prognosis -USG shows moderate volume ascites seen in all 4 quadrants. -10 L ascitic fluid taken out during paracentesis, sent for cultures -2 bags albumin ordered -Monitor labs -Repeat BNP #Alcohol withdrawal #Alcohol dependence - assess CIWA score - Ativan as needed - patient counseled about cessation of alcohol - Thiamine and folic acid GI prophylaxis: Protonix DVT prophylaxis: not indicated Diet: low-salt diet, cardiac diet Goals of care discussed with the patient for more than 27 minutes: Full code status Case discussed with Dr. Calzada, patient and nurse. Plan discussed with: Patient, Other (rn) Date of Service: May 11, 2025 Billing Provider: JOSE CALZADA MD Common Visit Codes: [id number] INP/OBS CARE(HIGH) LEYDA CALZADA RESIDENT May 11, 2025 15:13 JOSE CALZADA MD May 11, 2025 23:37
[2025-05-11] MEDS ORDERED: SODIUM CHLORIDE 0.9% 250 ML IV ONE (15:30)
--- NOTE | 2025-05-11 15:31 | DVH ---
Exam: CT CT AB PEL WO CON-NO ORAL OR IV History: pYELO, CIRRHOSIS Comparison Study: CT CT AB PEL WO CON-NO ORAL OR IV on DOS: 04/11/25, CT CT AB PEL WO CON-NO ORAL OR IV on DOS: 04/01/25, CT CT AB PEL WO CON-NO ORAL OR IV on DOS: 02/18/25 TECHNIQUE: Multidetector CT of the abdomen and pelvis without IV contrast. Axial, coronal and sagitta l multiplanar reformats were obtained from the axial data set by the technologist. Radiation Dose Information: CT Dose: CTDI volume is 13.72 mGy. Dose-length product is 703.39 mGy*cm FINDINGS: Small left with trace right-sided pleural effusions and associated atelectasis. Partially visualized heart is unremarkable. Cirrhotic appearing liver with recanalization of the umbilical vein, upper abdominal varices and scott roesophageal varices. Limited evaluation of the liver parenchyma given noncontrast imaging. Spleen, pancreas and adrenal glands unremarkable. Cholelithiasis with limited evaluation for acute ch olecystitis given surrounding ascites. Kidneys and ureters are unremarkable. Urinary bladder is decompressed with Galvez catheter in place. F oci of air within the urinary bladder which is most likely iatrogenic. Prostate is unremarkable. Mild gastric wall thickening. Small bowel loops unremarkable. Appendix is unremarkable. Mild wall thi ckening of the descending colon and sigmoid which is most likely from inadequate distension. Large volume ascites. No evidence of intraperitoneal free air. No evidence of aortic aneurysm. Mild atherosclerotic calcification of bilateral iliacs. No significant lymphadenopathy. Small to moderate fat and ascitic fluid containing bilateral inguinal hernias. Large ascitic fluid co ntaining multiloculated /septated umbilical hernia. Mild pelvic with minimal lateral and lower back S ubcutaneous fat edema. No acute osseous abnormalities. Mild chronic appearing loss of vertebral body height of L5. Sclerotic focus of the left proximal femur which may represent a bone island. IMPRESSION: Cirrhotic appearing liver with findings of portal venous hypertension. Large volume ascites with a large ascitic fluid containing multiloculated/septated umbilical hernia. Cholelithiasis with limited evaluation for acute cholecystitis given ascites. Mild gastric wall thickening which may be due to inadequate distention/ portal hypertensive gastropat hy /mild gastritis. Additional findings as above.
--- NOTE | 2025-05-11 15:33 | DVH ---
CHEST RADIOGRAPH Indication: sob Technique: Single frontal view of the chest was obtained COMPARISON: XY CHEST PORTABLE on DOS: 04/01/25, XY CHEST PORTABLE on DOS: 02/02/25, XY CHEST PORTABLE on DOS: 01/31/23, CXRP on DOS: 05/01/22, CHEST PORTABLE on DOS: 05/01/22 FINDINGS: Lines and Tubes: None Lungs: Increased interstitial prominence Pleura: No effusion. No pneumothorax. Cardiomediastinal contours: Unremarkable Bones: Unremarkable IMPRESSION: Pulmonary vascular congestion
[2025-05-11] MEDS: NOREPINEPHRINE 8 MG/250ML KIT 250 ML IV SCH (17:18)
[2025-05-11] MEDS: ALBUMIN 25% 100 ML IV SCH (18:42)
[2025-05-12] VITALS (91 sets, daily range): BP systolic 86–124; BP diastolic 41–75; PULSE 61–112; RESP 12–30; TEMP 98.3–100.7; O2SAT 94–100
[2025-05-12 03:38] LABS: Hematocrit 31.5 % (41.0-53.0); Hemoglobin 11.5 g/dL (13.5-17.5); Mean Corpuscular Hemoglobin 36.5 pg (28.0-32.0); Mean Corpuscular Volume 99.8 fL (80.0-100.0); Nucleated Red Blood Cells % 0.0 %
[2025-05-12 03:44] LABS: INR 1.59 (0.9-1.15); Partial Thromboplastin Time 34.4 SEC (24.5-34.5); Prothrombin Time 16.1 sec (9.3-11.8)
[2025-05-12 03:50] LABS: Alanine Aminotransferase 20 U/L (7-40); Albumin 3.4 g/dL (3.2-4.8); Alkaline Phosphatase 70 U/L (46-116); Anion Gap 11 (5-15); BUN/Creatinine Ratio 10.2 (10.0-20.0); Blood Urea Nitrogen 19 mg/dL (9-23); Carbon Dioxide 20 mmol/L (20-31); Chloride 101 mmol/L (98-107); Potassium 3.8 mmol/L (3.5-5.1); Total Protein 5.7 g/dL (5.7-8.2)
[2025-05-12 03:54] LABS: Bilirubin, Total 3.7 mg/dL (0.2-1.0); Calcium 8.5 mg/dL (8.7-10.4); Glucose 130 mg/dL (74-106); Sodium 132 mmol/L (136-145)
[2025-05-12] MEDS: LACTULOSE 20Gm/30ML SOLN PO SCH (09:51)
--- NOTE | 2025-05-12 12:21 | DVHCONRES ---
Date Seen: May 12, 2025 Resident Creating Document: CORTNEY VERGARA RESIDENT Referring Physician Dr. Ledesma History of Present Illness This is a 54-year-old male with history of alcoholic liver cirrhosis, esophageal varices, chronic alcoholic dependence, hypertension, asymptomatic cholelithiasis who presented to the ER with a chief complaint of abdominal distention and shortness of breaths. Subsequently patient underwent paracentesis with 10 L fluid drained, culture was negative, no SBP. Nephrology is consulted for NIESHA Patient seen and examined at the bedside. Requiring Levophed supplementation for hypotension. Ammonia 101. Baseline BUN/creatinine/GFR 11/0.82/105 Family History: FH: cancer G8 MOTHER, Hypertension G8 FATHER, , Onset:Unknown G8 FATHER, Hypertension G8 FATHER, , Onset:Unknown G8 FATHER, Seizure disorder G8 BROTHER, (unknown) Allergies: Coded Allergies: NO KNOWN ALLERGIES (Unverified , 03/12/20) Home Meds Active Scripts Furosemide (Lasix) 40 Mg Tab, 40 MG PO DAILY for 30 Days, #30 TAB 3 Refills Prov:JN ABRAHAM MD 04/05/25 Bumetanide (Bumetanide) 1 Mg Tab, 1 TAB PO BID for 30 Days, #60 TAB 3 Refills Prov:KAYLAN MELVIN DO 02/21/25 Magnesium Oxide (MAGNESIUM OXIDE) 400 Mg Tab, 400 MG OR DAILY for 30 Days, #30 TAB Prov:PORSCHE CROWE RESIDENT 07/31/24 Potassium Chloride (Potassium Chloride ER) 20 Meq Tab, 20 MEQ PO DAILY for 30 Days, #30 TAB Prov:PORSCHE CROWE RESIDENT 07/31/24 Multiple Vitamin (Multivitamins) Tab, 1 TAB PO DAILY for 90 Days, #90 TAB 0 Refills Prov:SALANUJ MONTANO [employer]ICS TEST ENGINEER 04/06/24 Sucralfate (CARAFATE) 1 Gm Tab, 1 GM OR QID for 30 Days, #120 TAB Prov:SALBINNENIAT QuinteroLESLIE [employer]LECTRONICS TEST ENGINEER 04/06/24 Lisinopril (Lisinopril) 20 Mg Tab, 1 TAB PO DAILYPRN for 60 Days, #60 TAB Prov:SALNENITA MONTANOOLPH ELECTRONICS TEST ENGINEER 04/06/24 Propranolol HCl (Propranolol Hydrochloride) 20 Mg Tab, 1 TAB PO BID for 60 Days, #120 TAB Prov:ANUJ MULLIGAN [employer]LECT[employer]ICS TEST ENGINEER 04/06/24 Reported Medications Pantoprazole Sodium Sesquihydr (Pantoprazole Sodium) 40 Mg Tab, 1 TAB PO BID 04/11/25 Furosemide (Furosemide) 40 Mg Tab, 1 TAB PO DAILY 04/11/25 Cholecalciferol (VITAMIN D3) 2,000 Unit Tab, 1 TAB PO DAILY for 90 Days, #90 02/03/25 Spironolactone (Spironolactone) 25 Mg Tab, 1 TAB PO DAILY for 30 Days, #30 02/03/25 Pantoprazole Sodium Sesquihydr (Protonix) 40 Mg Tab, 1 TAB PO BID for 30 Days, #60 02/02/25 Lactulose (Lactulose) 10 Gm/15 Ml Sharon, ML PO 11/25/24 Acamprosate Calcium (ACAMPROSATE CALCIUM DR) 333 Mg Tab, 333 MG PO QID, TAB 07/31/24 Folic Acid (Folic Acid) 1 Mg Tab, 1 MG PO DAILY, TAB 07/31/24 Thiamine Hcl (VITAMIN B-1) 100 Mg Tb, 1 TAB PO DAILY for 30 Days, #30 07/31/24 Current Medications Current Medications Medications (Trade) Dose Ordered Sig/Adama Route PRN Reason Start Time Stop Time Status Last Admin Midodrine (Proamatine Tablet) 10 mg TID@0600,1200,1800 PO 05/11/25 18:00 05/12/25 11:25 Norepinephrine Bitartrate 250 ml @ 3.75 mls/hr Q24H IV 05/11/25 16:30 05/12/25 07:21 DC 05/11/25 17:18 Albumin Human 100 ml @ 100 mls/hr Q6H IV 05/11/25 17:45 05/13/25 17:45 05/12/25 11:25 Lactulose 30 ml TID PO 05/12/25 06:30 05/12/25 11:25 Norepinephrine Bitartrate 250 ml @ 3.75 mls/hr Q24H IV 05/12/25 07:30 Vital Signs Vital Signs Date Time Temp Pulse Resp B/P (MAP) Pulse Ox O2 Delivery O2 Flow Rate FiO2 05/12/25 12:00 21 99 Room Air* 0 21 05/12/25 12:00 76 05/12/25 12:00 98.5 111/60 (77) 98.5 Physical Exam Patient lying in bed, in no acute distress General: Overweight, afebrile, palor, mucosae are moist Cardiovascular: Regular S1 and S2. No murmurs, gallops or rubs. No JVD elevation. Trace pedal edema pitting Respiratory: Normal B/L air entry on room air. Clear lung sounds on auscultation Abdomen: Soft, nontender, abdomen is distended, normoactive bowel sounds, no rebound tenderness, no organomegaly, no masses Genitourinary: Deferred MSK/skin: Mobilizes 4 limbs. Skin is dry and warm Neurological: No motor, no sensitive deficits, normal speech. Pupils are isocoric and reactive. Psych/Mental Status: A/Ox3 Labs/Diagnostic Data Labs Test 05/12/25 02:54 05/11/25 09:45 05/10/25 22:30 05/10/25 09:14 Range/Units White Blood Count 6.6 4.4-10.8 10^3/uL Red Blood Count 3.15 L 4.5-5.90 10^6/uL Hemoglobin 11.5 #L 13.5-17.5 g/dL Hematocrit 31.5 #L 41.0-53.0 % Mean Corpuscular Volume 99.8 80.0-100.0 fL Mean Corpuscular Hemoglobin 36.5 H 28.0-32.0 pg Mean Corpuscular Hemoglobin Concent 36.5 H 32.0-36.0 g/dL Red Cell Distribution Width 14.2 11.8-14.3 % Platelet Count 84 L 140-450 10^3/uL Mean Platelet Volume 7.1 6.9-10.8 fL Neutrophils (%) (Auto) 67.1 37.0-80.0 % Lymphocytes (%) (Auto) 14.9 10.0-50.0 % Monocytes (%) (Auto) 14.5 H 0.0-12.0 % Eosinophils (%) (Auto) 3.0 0.0-7.0 % Basophils (%) (Auto) 0.5 0.0-2.0 % Neutrophils # (Auto) 4.4 1.6-8.6 10 ^3/uL Lymphocytes # (Auto) 1.0 0.4-5.4 10 ^3/uL Monocytes # (Auto) 1.0 0-1.3 10 ^3/uL Eosinophils # (Auto) 0.2 0-0.8 10 ^3/uL Basophils # (Auto) 0 0-0.2 10 ^3/uL Nucleated Red Blood Cells 0.0 % Prothrombin Time 16.1 H 9.3-11.8 sec Prothrombin Time INR 1.59 H 0.9-1.15 Activated Partial Thromboplast Time 34.4 24.5-34.5 SEC Sodium Level 132 #L 136-145 mmol/L Potassium Level 3.8 3.5-5.1 mmol/L Chloride Level 101 98-107 mmol/L Carbon Dioxide Level 20 20-31 mmol/L Anion Gap 11 5-15 Blood Urea Nitrogen 19 9-23 mg/dL Creatinine 1.86 H 0.700-1.30 mg/dL Glomerular Filtration Rate Calc 43 >90 mL/min BUN/Creatinine Ratio 10.2 10.0-20.0 Serum Glucose 130 H 74-106 mg/dL Calcium Level 8.5 L 8.7-10.4 mg/dL Total Bilirubin 3.7 H 0.2-1.0 mg/dL Aspartate Amino Transferase (AST) 60 H 13-40 U/L Alanine Aminotransferase (ALT) 20 7-40 U/L Alkaline Phosphatase 70 46-116 U/L Ammonia 101 H 11-32 umol/L Total Protein 5.7 5.7-8.2 g/dL Albumin 3.4 3.2-4.8 g/dL Magnesium Level 1.3 L 1.6-2.6 mg/dL Urine Color Yellow Yellow Urine Clarity Turbid H Clear Urine pH 6.0 5.0-9.0 Urine Specific Drummond 1.013 1.001-1.035 Urine Protein 1+ H Negative Urine Ketones 1+ H Negative Urine Blood 1+ H Negative /uL Urine Nitrite Negative Negative Urine Bilirubin 1+ Negative Urine Urobilinogen 6 Negative mg/dL Urine Leukocyte Esterase Negative Negative /uL Urine RBC 4 0 - 3 /hpf Urine Microscopic WBC 4 H 0-3 /HPF Urine Squamous Epithelial Cells Few <5 /hpf Urine Bacteria Few H None Seen /hpf Urine Hyaline Casts Mod 0 - 2 /lpf Urine Mucus Few None Seen Urine Sperm Present None Seen /hpf Urine Osmolality 280 mOsm/kg Urine Sodium 16 L 40-220 mmol/L Urine Glucose Normal Normal mg/dL Urine Opiates Screen Neg NEGATIVE Urine Fentanyl Screen Neg NEGATIVE Urine Barbiturates Screen Neg NEGATIVE Urine Phencyclidine Screen Neg NEGATIVE Urine Amphetamines Screen Neg NEGATIVE Urine Benzodiazepines Screen Pos NEGATIVE Urine Cocaine Screen Neg NEGATIVE Urine Cannabinoids Screen Neg NEGATIVE Plasma/Serum Blood Alcohol < 3.0 <10 mg/dL Test 05/10/25 09:00 05/10/25 08:53 05/09/25 13:27 Range/Units Body Fluid Source Peritoneal fluid Body Fluid pH 8.0 Body Fluid WBC (Manual) 102 0-200 CUMM Body Fluid RBC (Manual) 139 0-2000 CUMM Body Fluid Mononuclear Cells 80 % Body Fluid Polymorphonuclear Cells 20 0-25 % Body Fluid Glucose 103 . mg/dL Body Fluid Total Protein 1.7 . g/dL Body Fluid Lactate Dehydrogenase 49 . IU/L Serum Osmolality 264 L 278-298 mOsm/kg Lipase 47 12-53 U/L Microbiology Date/Time Source Procedure Growth Status 05/10/25 09:00 Ascities Fluid Gram Stain - Final Resulted 05/10/25 09:00 Ascities Fluid Body Fluid Culture - Preliminary Resulted Assessment Acute kidney injury likely prerenal given hypotension-FENA 0.3% Chronic Hyponatremia likely beer potomania Anemia likely macrocytic secondary to alcohol use Alcoholic cirrhosis status post paracentesis 10L 05/10 Risk of alcoholic withdrawal Hypoalbuminemia Thrombocytopenia secondary to alcohol use and cirrhosis Hypomagnesemia Plan: Started albumin 25% q.6 hour for 2 days. Wean off IV pressors as blood pressure allows. Sodium 132 and improving. BUN/creatinine trending down Strict I&Os, fluid restriction, low-salt diet Follow up with B12, vitamin-D, PTH levels Monitor H&H Trend ammonia daily Plan discussed with patient in which all questions have been answered Case discussed with Dr. Singleton Addendum Patient seen and examined, plan discussed with resident. Agree with above, we will follow closely Plan discussed with: Patient, Other (Nurse) CORTNEY VERGARA May 12, 2025 12:21 AVE SINGLETON MD May 12, 2025 19:03
[2025-05-12] MEDS: NOREPINEPHRINE 8 MG/250ML KIT 250 ML IV SCH (12:29)
[2025-05-12 13:17] LABS: Protein, Urine 33.1 mg/dL (1-14)
--- NOTE | 2025-05-12 16:40 | DVHPNRES ---
Progress Note Date Seen: May 12, 2025 Resident Creating Document: AZAM ANGELES RESIDENT Medical Necessity Reason Pt with a Central, PICC or Fol: No Subjective Review of Systems Patient seen and examined at the bedside. Overnight events reviewed, no new complaints reported at this time. Patient was ICU status due to hypovolemic shock, currently on Levophed drip and titrating down. Patient reports: No new complaints, Feels better Objective vital signs Vital Sign Date Time Temp Pulse Resp B/P (MAP) Pulse Ox O2 Delivery O2 Flow Rate FiO2 05/12/25 16:00 98.3 81 17 91/57 (68) 98 98.3 05/12/25 16:00 Room Air* 0 21 Total Intake and Output 05/11/25 05/11/25 05/12/25 15:00 23:00 07:00 Intake Total 1050 ml 167.25 ml 205 ml Output Total 2100 ml Balance 1050 ml 167.25 ml -1895 ml medications Current Medications Medications Dose Ordered Sig/Adama Route Start Time Stop Time Status Last Admin Dose Admin Folic Acid 1 mg DAILY PO 05/10/25 10:00 05/12/25 09:51 1 MG Thiamine HCl 100 mg DAILY PO 05/10/25 10:00 05/12/25 09:51 100 MG Pantoprazole Sodium 40 mg DAILY@0600 PO 05/10/25 06:00 05/12/25 05:38 40 MG Ondansetron HCl 4 mg Q4HP PRN IV 05/09/25 18:45 Tramadol HCl 50 mg Q6HP PRN PO 05/09/25 18:45 Chlordiazepoxide HCl 25 mg Q6HPRN PRN PO 05/09/25 21:45 Midodrine 10 mg TID@0600,1200,1800 PO 05/11/25 18:00 05/12/25 11:25 10 MG Albumin Human 100 ml @ 100 mls/hr Q6H IV 05/11/25 17:45 05/13/25 17:45 05/12/25 11:25 100 MLS/HR Lactulose 30 ml TID PO 05/12/25 06:30 05/12/25 11:25 30 ML Norepinephrine Bitartrate 250 ml @ 3.75 mls/hr Q24H IV 05/12/25 07:30 05/12/25 12:29 3.75 MLS/HR Examination Pt is lying on bed General Appearance: Alert, Oriented X3, Cooperative, Not in acute distress HEENT: Atraumatic, Mucous membranes moist/pink Respiratory: Clear to auscultation, Normal air movement, No added sounds Cardiovascular: Regular rate, Normal S1, Normal S2, No murmurs Abdominal: Active bowel sounds, Soft, mild abdominal distention Extremities: No edema, Normal pulses, No tenderness/swelling Skin: No Significant rash, except past surgical scars Neuro: Normal speech, sensorimotor deficits none Psych/Mental Status: Mental status NL, Mood NL Nurse was there as stump shooter during examination laboratory and microbiology Laboratory Tests 05/12/25 02:54 Test 05/12/25 02:54 Range/Units Serum Glucose 130 H 74-106 mg/dL Microbiology Date/Time Source Procedure Growth Status 05/11/25 17:00 Nose MRSA Screen - Final Complete 05/10/25 09:00 Ascities Fluid Gram Stain - Final Resulted 05/10/25 09:00 Ascities Fluid Body Fluid Culture - Preliminary Resulted Labs and/or images reviewed: Labs reviewed by me, Image(s) reviewed by me Problem List/Assessment/Plan Problem List/Assessment/Plan # Hypovolemic shock # NIESHA likely due to VMN And worsened after paracentesis- no getting better -Monitor labs -Midodrine given -IV fluids given - transferred to ICU - started on Levophed drip- titrating down as tolerated - targeted a MAP more than 60 # Chronic Decompensated alcoholic liver cirrhosis with ascites # Transaminitis # Moderate Hyponatremia, asymptomatic, dilutional, probably secondary to above- improving -MELD Score is 16:6% three-month mortality -[facility] Discriminant for: 13.9 good prognosis -USG shows moderate volume ascites seen in all 4 quadrants. -10 L ascitic fluid taken out during paracentesis, sent for cultures -2 bags albumin ordered -Monitor labs -Repeat BNP # Alcohol withdrawal # Alcohol dependence - assess CIWA score - Ativan as needed - patient counseled about cessation of alcohol - Thiamine and folic acid GI prophylaxis: Protonix DVT prophylaxis: not indicated Diet: low-salt diet, cardiac diet Goals of care discussed with the patient for more than 27 minutes: Full code status Case discussed with Dr. Calzada, patient and nurse. Plan discussed with: Patient My Orders My Orders Orders - AZAM ANGELES RESIDENT Procedure Category Date Status Time Lactulose Oral PHA 05/12/25 In Process 06:30 Dietary Evaluation Review Comments: Prtein restriction is guided pt's NIESHA and low GFR, which conflicts with the high protein requirements typically seen in liver cirrhosis. Pt needs to cut out sugary food to avoid hypoglycemia secondary to alcohol withdral symptoms, The recommended diet for this patient is a 2gNA 50 g protein CCHO-60 diet. Expected Outcomes/Goals: Maintain good nutrition, less alcohol withdral and uremic syndrome. Date of Service: May 12, 2025 Billing Provider: JOSE CALZADA MD Common Visit Codes: [id number] INP/OBS CARE(HIGH) AZAM ANGELES RESIDENT May 12, 2025 16:39 JOSE CALZADA MD May 12, 2025 23:15
[2025-05-13] VITALS (39 sets, daily range): BP systolic 90–120; BP diastolic 51–68; PULSE 73–95; RESP 12–26; TEMP 97.8–98.4; O2SAT 92–100
[2025-05-13 04:09] LABS: Hematocrit 31.2 % (41.0-53.0); Hemoglobin 11.4 g/dL (13.5-17.5); Mean Corpuscular Hemoglobin 36.8 pg (28.0-32.0); Mean Corpuscular Volume 100.9 fL (80.0-100.0); Nucleated Red Blood Cells % 0.0 %
[2025-05-13 04:17] LABS: Alanine Aminotransferase 21 U/L (7-40); Albumin 3.5 g/dL (3.2-4.8); Alkaline Phosphatase 57 U/L (46-116); Anion Gap 11 (5-15); BUN/Creatinine Ratio 11.8 (10.0-20.0); Blood Urea Nitrogen 12 mg/dL (9-23); Calcium 8.9 mg/dL (8.7-10.4); Carbon Dioxide 21 mmol/L (20-31); Chloride 106 mmol/L (98-107); Magnesium 1.6 mg/dL (1.6-2.6); Potassium 3.6 mmol/L (3.5-5.1); Sodium 138 mmol/L (136-145)
[2025-05-13 04:29] LABS: Bilirubin, Total 3.5 mg/dL (0.2-1.0); Glucose 112 mg/dL (74-106); Total Protein 5.5 g/dL (5.7-8.2)
[2025-05-13] MEDS: ERGOCALCIFEROL 50,000 UNIT(1.25MG) CAP PO SCH (09:59)
--- NOTE | 2025-05-13 10:38 | DVHPN2 ---
Progress Note Date Seen: May 13, 2025 Resident Creating Document: CORTNEY VERGARA RESIDENT Medical Necessity Reason Pt with a Central, PICC or Fol: No Subjective Review of Systems This is a 54-year-old male with history of alcoholic liver cirrhosis, esophageal varices, chronic alcoholic dependence, hypertension, asymptomatic cholelithiasis who presented to the ER with a chief complaint of abdominal distention and shortness of breaths. Subsequently patient underwent paracentesis with 10 L fluid drained, culture was negative, no SBP. Nephrology is consulted for NIESHA 05/12 - Patient seen and examined at the bedside. Requiring Levophed supplementation for hypotension. Ammonia 101. Baseline BUN/creatinine/GFR 11/0.82/105 05/13-patient seen and examined in ICU. Off Levophed. Urine output 1300 cc. Creatinine baseline 1.0. Objective vital signs Vital Sign Date Time Temp Pulse Resp B/P (MAP) Pulse Ox O2 Delivery O2 Flow Rate FiO2 05/13/25 07:00 74 21 103/58 (73) 98 05/13/25 06:00 Room Air* 0 21 05/13/25 04:00 98.3 98.3 Total Intake and Output 05/12/25 05/12/25 05/13/25 15:00 23:00 07:00 Intake Total 120.75 ml 700 ml 700 ml Output Total 700 ml 600 ml Balance 120.75 ml 0 ml 100 ml medications Current Medications Medications Dose Ordered Sig/Adama Route Start Time Stop Time Status Last Admin Dose Admin Folic Acid 1 mg DAILY PO 05/10/25 10:00 05/13/25 09:59 1 MG Thiamine HCl 100 mg DAILY PO 05/10/25 10:00 05/13/25 09:59 100 MG Pantoprazole Sodium 40 mg DAILY@0600 PO 05/10/25 06:00 05/13/25 05:13 40 MG Ondansetron HCl 4 mg Q4HP PRN IV 05/09/25 18:45 Tramadol HCl 50 mg Q6HP PRN PO 05/09/25 18:45 Chlordiazepoxide HCl 25 mg Q6HPRN PRN PO 05/09/25 21:45 Midodrine 10 mg TID@0600,1200,1800 PO 05/11/25 18:00 05/13/25 05:13 10 MG Albumin Human 100 ml @ 100 mls/hr Q6H IV 05/11/25 17:45 05/13/25 17:45 05/13/25 05:14 100 MLS/HR Lactulose 30 ml TID PO 05/12/25 06:30 05/13/25 05:13 30 ML Norepinephrine Bitartrate 250 ml @ 3.75 mls/hr Q24H IV 05/12/25 07:30 05/12/25 12:29 3.75 MLS/HR Ergocalciferol 50,000 unit Q7D PO 05/13/25 09:00 05/13/25 09:59 50,000 UNIT Examination Patient lying in bed, in no acute distress General: Overweight, afebrile, palor, mucosae are moist Cardiovascular: Regular S1 and S2. No murmurs, gallops or rubs. No JVD elevation. Trace pedal edema pitting Respiratory: Normal B/L air entry on room air. Clear lung sounds on auscultation Abdomen: Soft, nontender, abdomen is distended, normoactive bowel sounds, no rebound tenderness, no organomegaly, no masses Genitourinary: Deferred MSK/skin: Mobilizes 4 limbs. Skin is dry and warm Neurological: No motor, no sensitive deficits, normal speech. Pupils are isocoric and reactive. Psych/Mental Status: A/Ox3 laboratory and microbiology Laboratory Tests 05/13/25 03:01 Test 05/13/25 03:01 Range/Units Serum Glucose 112 H 74-106 mg/dL Microbiology Date/Time Source Procedure Growth Status 05/11/25 17:00 Nose MRSA Screen - Final Complete 05/10/25 09:00 Ascities Fluid Gram Stain - Final Resulted 05/10/25 09:00 Ascities Fluid Body Fluid Culture - Preliminary Resulted Labs and/or images reviewed: Labs reviewed by me, Image(s) reviewed by me Problem List/Assessment/Plan Problem List/Assessment/Plan Acute kidney injury likely prerenal given hypotension-FENA 0.3% Chronic Hyponatremia likely beer potomania Anemia likely macrocytic secondary to alcohol use Alcoholic cirrhosis status post paracentesis 10L 05/10 Risk of alcoholic withdrawal Hypoalbuminemia Thrombocytopenia secondary to alcohol use and cirrhosis Hypomagnesemia Vitamin-D deficiency Plan: Patient is normotensive. Off IV pressors. BUN/creatinine trending down to baseline, Nephrology will sign off at this time. Please reconsult us if necessary. Patient received IV albumin 25% q.6 hour for 2 days - discontinued Sodium 138 and improving. BUN/creatinine trending down Strict I&Os, fluid restriction, low-salt diet Vitamin-D supplemented Monitor H&H Trend ammonia daily Thank you Dr Ledesma for consulting us Plan discussed with patient in which all questions have been answered Case discussed with Dr. Singleton Plan discussed with: Patient My Orders My Orders Orders - CORTNEY VERGARA Procedure Category Date Status Time Urinalysis LAB 05/13/25 Logged 04:00 Communication Order ORDERS 05/12/25 Transmitted 12:19 Ergocalciferol PHA 05/13/25 In Process (Vitamin D 50,000 09:00 Dietary Evaluation Review Comments: Prtein restriction is guided pt's NIESHA and low GFR, which conflicts with the high protein requirements typically seen in liver cirrhosis. Pt needs to cut out sugary food to avoid hypoglycemia secondary to alcohol withdral symptoms, The recommended diet for this patient is a 2gNA 50 g protein CCHO-60 diet. Expected Outcomes/Goals: Maintain good nutrition, less alcohol withdral and uremic syndrome. CORTNEY VERGARA May 13, 2025 10:[address] SINGLETON MD May 13, 2025 13:10
[2025-05-13] MEDS ORDERED: TAMS1CAP25 PO (13:02)
--- NOTE | 2025-05-13 17:42 | DVHDSRES ---
Discharge Summary Date of Admission Resident Creating Document: AZAM ANGELES RESIDENT May 09, 2025 at 19:39 Date of Discharge: May 13, 2025 Admitting Diagnosis Ascites Labs/Diagnostic Data: Laboratory Results Test 05/13/25 03:01 05/12/25 12:30 05/12/25 02:54 05/10/25 22:30 White Blood Count 4.3 10^3/uL (4.4-10.8) Red Blood Count 3.09 10^6/uL (4.5-5.90) Hemoglobin 11.4 g/dL (13.5-17.5) Hematocrit 31.2 % (41.0-53.0) Mean Corpuscular Volume 100.9 fL (80.0-100.0) Mean Corpuscular Hemoglobin 36.8 pg (28.0-32.0) Mean Corpuscular Hemoglobin Concent 36.5 g/dL (32.0-36.0) Red Cell Distribution Width 14.4 % (11.8-14.3) Platelet Count 58 10^3/uL (140-450) Mean Platelet Volume 7.7 fL (6.9-10.8) Neutrophils (%) (Auto) 69.8 % (37.0-80.0) Lymphocytes (%) (Auto) 14.4 % (10.0-50.0) Monocytes (%) (Auto) 13.2 % (0.0-12.0) Eosinophils (%) (Auto) 2.3 % (0.0-7.0) Basophils (%) (Auto) 0.3 % (0.0-2.0) Neutrophils # (Auto) 3.0 10 ^3/uL (1.6-8.6) Lymphocytes # (Auto) 0.6 10 ^3/uL (0.4-5.4) Monocytes # (Auto) 0.6 10 ^3/uL (0-1.3) Eosinophils # (Auto) 0.1 10 ^3/uL (0-0.8) Basophils # (Auto) 0 10 ^3/uL (0-0.2) Nucleated Red Blood Cells 0.0 % Sodium Level 138 mmol/L (136-145) Potassium Level 3.6 mmol/L (3.5-5.1) Chloride Level 106 mmol/L (98-107) Carbon Dioxide Level 21 mmol/L (20-31) Anion Gap 11 (5-15) Blood Urea Nitrogen 12 mg/dL (9-23) Creatinine 1.02 mg/dL (0.700-1.30) Glomerular Filtration Rate Calc 88 mL/min (>90) BUN/Creatinine Ratio 11.8 (10.0-20.0) Serum Glucose 112 mg/dL (74-106) Calcium Level 8.9 mg/dL (8.7-10.4) Magnesium Level 1.6 mg/dL (1.6-2.6) Total Bilirubin 3.5 mg/dL (0.2-1.0) Aspartate Amino Transferase (AST) 62 U/L (13-40) Alanine Aminotransferase (ALT) 21 U/L (7-40) Alkaline Phosphatase 57 U/L (46-116) Ammonia 99 umol/L (11-32) Total Protein 5.5 g/dL (5.7-8.2) Albumin 3.5 g/dL (3.2-4.8) Vitamin B12 Level 1363 pg/mL (211-911) Vitamin D 25-Hydroxy 17.6 ng/mL (30.0-100) Parathyroid Hormone (Intact) 21.9 pg/mL (18.4-80.1) Urine Creatinine 81.34 mg/dL (30.0-125.0) Urine Protein/Creatinine Ratio 0.41 Urine Total Protein 33.1 mg/dL (1-14) Prothrombin Time 16.1 sec (9.3-11.8) Prothrombin Time INR 1.59 (0.9-1.15) Activated Partial Thromboplast Time 34.4 SEC (24.5-34.5) Urine Color Yellow (Yellow) Urine Clarity Turbid (Clear) Urine pH 6.0 (5.0-9.0) Urine Specific Carriere 1.013 (1.001-1.035) Urine Protein 1+ (Negative) Urine Ketones 1+ (Negative) Urine Blood 1+ /uL (Negative) Urine Nitrite Negative (Negative) Urine Bilirubin 1+ (Negative) Urine Urobilinogen 6 mg/dL (Negative) Urine Leukocyte Esterase Negative /uL (Negative) Urine RBC 4 /hpf (0 - 3) Urine Microscopic WBC 4 /HPF (0-3) Urine Squamous Epithelial Cells Few /hpf (<5) Urine Bacteria Few /hpf (None Seen) Urine Hyaline Casts Mod /lpf (0 - 2) Urine Mucus Few (None Seen) Urine Sperm Present /hpf (None Seen) Urine Osmolality 280 mOsm/kg Urine Sodium 16 mmol/L (40-220) Urine Glucose Normal mg/dL (Normal) Urine Opiates Screen Neg (NEGATIVE) Urine Fentanyl Screen Neg (NEGATIVE) Urine Barbiturates Screen Neg (NEGATIVE) Urine Phencyclidine Screen Neg (NEGATIVE) Urine Amphetamines Screen Neg (NEGATIVE) Urine Benzodiazepines Screen Pos (NEGATIVE) Urine Cocaine Screen Neg (NEGATIVE) Urine Cannabinoids Screen Neg (NEGATIVE) Test 05/10/25 09:14 05/10/25 09:00 05/10/25 08:53 05/09/25 13:27 Plasma/Serum Blood Alcohol < 3.0 mg/dL (<10) Body Fluid Source Peritoneal fluid Body Fluid pH 8.0 Body Fluid WBC (Manual) 102 CUMM (0-200) Body Fluid RBC (Manual) 139 CUMM (0-2000) Body Fluid Mononuclear Cells 80 % Body Fluid Polymorphonuclear Cells 20 % (0-25) Body Fluid Glucose 103 mg/dL (.) Body Fluid Total Protein 1.7 g/dL (.) Body Fluid Lactate Dehydrogenase 49 IU/L (.) Serum Osmolality 264 mOsm/kg (278-298) Lipase 47 U/L (12-53) Other Laboratory Tests 05/13/25 03:01 Brief Hx & Hospital Course: 54-year-old male with a history of alcoholic liver cirrhosis presents for evaluation of abdominal distention. Patient reports having his last paracentesis 2 weeks ago. He presents with recurrent ascites and abdominal discomfort with no relieving factors but aggravated by lying down and moving. Patient Reports it was associated with nausea but no vomiting. He denies chest pain, shortness of breath, Chills or fever. Patient required hospital admission for further evaluation and management of Chronic Decompensated alcoholic liver cirrhosis with ascites, ultrasound showed like moderate to severe ascites for which did paracentesis of 10 L of ascitic fluid then patient started having hypotension, started on midodrine and fluids along with albumin but finally he has to on vasopressors and then slowly tapered off from vasopressors, patient also have morbid hyponatremia which is asymptomatic, dilutional so consulted Nephrology and advised to continue monitoring. Patient was counseled regarding cessation of alcohol 1st sound and meds and put him on Librium for possible withdrawals. Patient kidney function got worsened for which we added fluids and eventually got better and patient condition got better improved and hemodynamically stable in any condition to discharge home with optimal medical treatment as prescribed. Patient was advisable healthy lifestyle modifications including diet and exercise and advised to follow with PCP, GI and urology. Pt is lying on bed General Appearance: Alert, Oriented X3, Cooperative, Mild distress HEENT: Atraumatic, Mucous membranes moist/pink Respiratory: Clear to auscultation, Normal air movement, No added sounds Cardiovascular: Regular rate, Normal S1, Normal S2, No murmurs Abdominal/ : Active bowel sounds, Soft, no distention, no tenderness Extremities: No edema, Normal pulses, No tenderness/swelling Skin: No Significant rash, except past surgical scars Neuro: Normal speech, sensorimotor deficits none Psych/Mental Status: Mental status NL, Mood NL Nurse was there as clam sorter during examination Operations or Procedures CT CT AB PEL WO CON-NO ORAL OR IV IMPRESSION: Cirrhotic appearing liver with findings of portal venous hypertension. Large volume ascites with a large ascitic fluid containing multiloculated/septated umbilical hernia. Cholelithiasis with limited evaluation for acute cholecystitis given ascites. Mild gastric wall thickening which may be due to inadequate distention/ portal hypertensive gastropathy /mild gastritis. Additional findings as above. --- EXAM: US ABDOMEN LIMITED Findings/Impression: Moderate volume ascites seen in all 4 quadrants. --- ROCEDURE: ULTRASOUND GUIDED PARACENTESIS IMPRESSION: Ultrasound-guided paracentesis with no immediate complications. Procedure performed by Dr. Rosario. Condition at Discharge: Stable Final Diagnosis/Problems List # Hypovolemic shock # NIESHA likely due to VMN And worsened after paracentesis- Improved # Chronic Decompensated alcoholic liver cirrhosis with ascites # Transaminitis # Moderate Hyponatremia, asymptomatic, dilutional, probably secondary to above- improved # Alcohol withdrawal # Alcohol dependence Discharge Disposition: Home Discharge Instruct/Medications Diet: Consistent carbohydrate, Cardiac 2g Na,low cholest Activity: No Restrictions, As Tolerated Follow Up/Referral: F/u with PCP and GI Medications: As per EMR and resume home meds Scheduled Acamprosate Calcium (Acamprosate Calcium ), 333 MG PO QID, (Reported) Cholecalciferol (Vitamin D3), 1 TAB PO DAILY, (Reported) Folic Acid (Folic Acid), 1 MG PO DAILY, (Reported) Furosemide (Lasix), 40 MG PO DAILY Furosemide (Furosemide), 1 TAB PO DAILY, (Reported) Lisinopril (Lisinopril), 1 TAB PO DAILYPRN Magnesium Oxide (Magnesium Oxide), 400 MG OR DAILY Multiple Vitamin (Multivitamins), 1 TAB PO DAILY Pantoprazole Sodium Sesquihydr (Protonix), 1 TAB PO BID, (Reported) Pantoprazole Sodium Sesquihydr (Pantoprazole Sodium), 1 TAB PO BID, (Reported) Potassium Chloride (Potassium Chloride ER), 20 MEQ PO DAILY Propranolol HCl (Propranolol Hydrochloride), 1 TAB PO BID Spironolactone (Spironolactone), 1 TAB PO DAILY, (Reported) Sucralfate (Carafate), 1 GM OR QID Tamsulosin HCl (Tamsulosin Hydrochloride), 0.4 MG PO HS Thiamine Hcl (Vitamin B-1), 1 TAB PO DAILY, (Reported) Miscellaneous Medications Lactulose (Lactulose), ML PO, (Reported) Discontinued Medications Bumetanide (Bumetanide), 1 TAB PO BID Discharge Statement: "Patient was advised to return to the ER or call 911 if any headaches, dizziness, shortness of breath, chest pain, abdominal pain, bleeding, fevers, or worsening of medical condition. Patient was counseled about treatment plan, medications, possible side effects, patientverbalized understanding. All questions were answered to the best of my ability. This discharge took greater then 30 minutes in planning, reviewing documentation, counseling the patient, and discussing with other team members." ASSESSMENT ASSESSMENT Assessment # Hypovolemic shock # NIESHA likely due to VMN And worsened after paracentesis- Improved # Chronic Decompensated alcoholic liver cirrhosis with ascites # Transaminitis # Moderate Hyponatremia, asymptomatic, dilutional, probably secondary to above- improved # Alcohol withdrawal # Alcohol dependence Date of Service: May 13, 2025 Billing Provider: JOSE WISE MD Common Visit Codes: 42003-PII/OBS DISCH DAY >30min AZAM ANGELES RESIDENT May 13, 2025 17:42 JOSE WISE MD May 14, 2025 07:40
== END 2025-05-13 16:50 | disposition home or self-care (01) | DRG 280 ==
LOC: ER 12:05 → OVERFLOW 19:39 → CENTRAL 19:40 → TELE-CENTR 05-11 13:16 → ICU WEST 05-11 16:44
PROVIDERS: ADMIT Internal Medicine; ATTEND Internal Medicine
PROC: 0W9G3ZZ Drainage of Peritoneal Cavity, Percutaneous Approach (ICD-10-PCS; principal; 2025-05-10)
DX: K70.31 Alcoholic cirrhosis of liver with ascites (principal); N17.0 Acute kidney failure with tubular necrosis; R57.1 Hypovolemic shock; D69.59 Other secondary thrombocytopenia; E87.1 Hypo-osmolality and hyponatremia; F41.9 Anxiety disorder, unspecified; F32.A Depression, unspecified; I10 Essential (primary) hypertension; F10.239 Alcohol dependence with withdrawal, unspecified; D64.9 Anemia, unspecified; E88.09 Other disorders of plasma-protein metabolism, not elsewhere classified; E83.42 Hypomagnesemia; Z87.442 Personal history of urinary calculi; Z82.49 Family history of ischemic heart disease and other diseases of the circulatory system; Z82.0 Family history of epilepsy and other diseases of the nervous system; Z79.899 Other long term (current) drug therapy; Y90.9 Presence of alcohol in blood, level not specified; Z80.8 Family history of malignant neoplasm of other organs or systems
CPT/HCPCS: 36415; 71045; 74176; 76705; 76942; 80048; 80053; 80307; 80320; 81001; 82140; 82306; 82570; 82607; 83690; 83735; 83930; 83935; 83970; 83986; 84156; 84300; 85025; 85610; 85730; 87081; 87205; 89051; 96374; 96375; G0378; J2405; P9047

== ENCOUNTER 2025-05-24 06:29 | Emergency (ER) | payer MEDICAID ==
[~2025-05-24] VITALS: Ht 165.1 cm; Wt 81.1 kg
[~2025-05-24 06:29] MED LIST changes: -BUME1TAB3 PO; +TAMS1CAP25 PO
[2025-05-24 07:12] VITALS: BP 143/58; PULSE 75; RESP 16; TEMP 97.8; O2SAT 100
--- NOTE | 2025-05-24 07:26 | ED.PDOC ---
GI ASSESSMENT HPI Comments 54 y/o M, with PMHx of alcohol abuse, abdominal ascites, liver cirrhosis, anxiety, depression, HTN, and kidney stones presents to the ED for CC of abdominal pain. Patient states, he has been experiencing diffuse abdominal pain with associated abdominal distension and poor appetite onset, 05/10/25. Patient reports, that he was discharged from [facility] on 05/13/25 for Dx:Abdominal pain with ascites and received a paracentesis on 05/10/25 draining 10L of ascitic fluid. Patient comments, that he has stopped drinking as of o3jisti ago. Patient denies fever, chills, hematochezia, or diarrhea. No other associated symptoms, modifiers, recent injuries or sick contacts present at this time. Chief Complaint: Abdominal Pain Time Seen by MD: 07:00 Primary Care Provider: ? Reviewed Notes: Nurses Notes, Medications, Allergies Allergies: Coded Allergies: NO KNOWN ALLERGIES (Unverified , 03/12/20) Home Meds Active Scripts Tamsulosin HCl (Tamsulosin Hydrochloride) 0.4 Mg Cap, 0.4 MG PO HS for 30 Days, #30 CAP Prov:AZAM ANGELES RESIDENT 05/13/25 Furosemide (Lasix) 40 Mg Tab, 40 MG PO DAILY for 30 Days, #30 TAB 3 Refills Prov:JN ABRAHAM MD 04/05/25 Magnesium Oxide (MAGNESIUM OXIDE) 400 Mg Tab, 400 MG OR DAILY for 30 Days, #30 TAB Prov:PORSCHE CROWE RESIDENT 07/31/24 Potassium Chloride (Potassium Chloride ER) 20 Meq Tab, 20 MEQ PO DAILY for 30 Days, #30 TAB Prov:PORSCHE CROWE RESIDENT 07/31/24 Multiple Vitamin (Multivitamins) Tab, 1 TAB PO DAILY for 90 Days, #90 TAB 0 Refills Prov:SALBINONENITALESLIE PRINT PRODUCTION COORDINATOR 04/06/24 Sucralfate (CARAFATE) 1 Gm Tab, 1 GM OR QID for 30 Days, #120 TAB Prov:SALBINOLESLIE PRINT PRODUCTION COORDINATOR 04/06/24 Lisinopril (Lisinopril) 20 Mg Tab, 1 TAB PO DAILYPRN for 60 Days, #60 TAB Prov:SALBINLeonLESLIE PRINT PRODUCTION COORDINATOR 04/06/24 Propranolol HCl (Propranolol Hydrochloride) 20 Mg Tab, 1 TAB PO BID for 60 Days, #120 TAB Prov:SALBINO,LESLIE [employer] PRODUCTION COORDINATOR 04/06/24 Reported Medications Pantoprazole Sodium Sesquihydr (Pantoprazole Sodium) 40 Mg Tab, 1 TAB PO BID 04/11/25 Furosemide (Furosemide) 40 Mg Tab, 1 TAB PO DAILY 04/11/25 Cholecalciferol (VITAMIN D3) 2,000 Unit Tab, 1 TAB PO DAILY for 90 Days, #90 02/03/25 Spironolactone (Spironolactone) 25 Mg Tab, 1 TAB PO DAILY for 30 Days, #30 02/03/25 Pantoprazole Sodium Sesquihydr (Protonix) 40 Mg Tab, 1 TAB PO BID for 30 Days, #60 02/02/25 Lactulose (Lactulose) 10 Gm/15 Ml Sharon, ML PO 11/25/24 Acamprosate Calcium (ACAMPROSATE CALCIUM DR) 333 Mg Tab, 333 MG PO QID, TAB 07/31/24 Folic Acid (Folic Acid) 1 Mg Tab, 1 MG PO DAILY, TAB 07/31/24 Thiamine Hcl (VITAMIN B-1) 100 Mg Tb, 1 TAB PO DAILY for 30 Days, #30 07/31/24 Information Source: Patient Mode of Arrival: Ambulatory Timing: Hours Duration: Since onset Prehospital treatment: None Quality: None Vomitus: None Stool: Normal Severity: Moderate Recent: None Recent Hx of: None Pain Location: None Modifying Factors: Nothing Associated sign and symptoms: Abdominal Pain Past Medical History PAST MEDICAL HISTORY: Anxiety, Depression, HTN, Kidney Stones, Liver Surgical History: Hernia Repair Family History Family History: Family hx of Cancer Social History Smoker: Non-Smoker Alcohol: Heavy Drugs: Denies Drug Use Lives In: Home Constitutional: denies: chills, diaphoresis, fatigue, fever, malaise, sweats, weakness, others EENTM: denies: blurred vision, double vision, ear bleeding, ear discharge, ear drainage, ear pain, ear ringing, eye pain, eye redness, hearing loss, mouth pain, mouth swelling, nasal discharge, nose bleeding, nose congestion, nose pain, photophobia, tearing, throat pain, throat swelling, voice changes, others Respiratory: denies: cough, hemoptysis, orthopnea, SOB at rest, shortness of breath, SOB with excertion, stridor, wheezing, others Cardiovascular: denies: chest pain, dizzy spells, diaphoresis, Dyspnea on exertion, edema, irregular heart beat, left arm pain, lightheadedness, palpitations, PND, syncope, others Gastrointestinal: reports: abdomen distended, abdominal pain, poor appetite; denies: blood streaked bowels, constipated, diarrhea, dysphagia, difficulty swallowing, hematemesis, melena, nausea, poor fluid intake, rectal bleeding, rectal pain, vomiting, others Genitourinary: denies: burning, dysuria, flank pain, frequency, hematuria, incontinence, penile discharge, penile sore, pain, testicle pain, testicle swelling, urgency, others Neurological: denies: dizziness, fainting, headache, left sided numbness, left sided weakness, numbness, paresthesia, pre-existing deficit, right sided numbness, right sided weakness, seizure, speech problems, tingling, tremors, weakness, others Musculoskeletal: denies: back pain, gout, joint pain, joint swelling, muscle pain, muscle stiffness, neck pain, others Integumetry: denies: bruises, change in color, change in hair/nails, dryness, laceration, lesions, lumps, rash, wounds, others Allergic/Immunocompromised: denies: Difficulty Healing, Frequent Infections, Hives, Itching, others Hematologic/Lymphatic: denies: anemia, blood clots, easy bleeding, easy bruising, swollen glands, others Endocrine: denies: excessive hunger, excessive sweating, excessive thirst, excessive urination, flushing, intolerance to cold, intolerance to heat, unexplained weight gain, unexplained weight loss, others Psychiatric: denies: anxiety, bipolar disorder, depression, hopeless, panic disorder, schizophrenia, sleepless, suicidal, others All Other Systems: Reviewed and Negative Physical Exam General Appearance: Moderate Distress HEENT: Normal ENT Inspection, Pharynx Normal, Scleral Icterus (L), Scleral Icterus (R), TMs Normal Neck: Full Range of Motion, Non-Tender, Normal, Normal Inspection Respiratory: Chest Non-Tender, Lungs Clear, No Accessory Muscle Use, No Respiratory Distress, Normal Breath Sounds Cardiovascular: No Edema, No JVD, No Murmur, No Gallop, Normal Peripheral Pulses, Regular Rate/Rhythm Breast Exam: Deferred Gastrointestinal: Distended Genitalia: Deferred Pelvic: Deferred Rectal: Deferred Extremities: No calf tenderness, Normal capillary refill, Normal inspection, Normal range of motion, Non-tender, No pedal edema Musculoskeletal : Apperance: Normal Neurologic: Alert, turn down attendant II-XII nml as Tested, No Motor Deficits, Normal Affect, Normal Mood, No Sensory Deficits Cerebellar Function: Normal Reflexes: Normal Skin: Dry, Normal Color, Warm Peripheral Pulses: 3+ Radial (R), 3+ Radial (L) Lymphatic: No Adenopathy Was a procedure done? Was a procedure done?: No GI differential Dx Differential Diagnosis: Constipation, Diverticular disease, Esophagitis, Gastr itis/PUD, Gastroenteritis, Other (ABDOMINAL ASCITES) X-Ray, Labs, Meds, VS Vital Signs Date Time Temp Pulse Resp B/P (MAP) Pulse Ox O2 Delivery O2 Flow Rate FiO2 05/24/25 07:12 97.8 75 16 143/58 (86) 100 97.8 Lab Test 05/24/25 07:33 Range/Units White Blood Count 4.1 L 4.4-10.8 10^3/uL Red Blood Count 3.71 L 4.5-5.90 10^6/uL Hemoglobin 13.7 13.5-17.5 g/dL Hematocrit 38.1 L 41.0-53.0 % Mean Corpuscular Volume 102.7 H 80.0-100.0 fL Mean Corpuscular Hemoglobin 37.0 H 28.0-32.0 pg Mean Corpuscular Hemoglobin Concent 36.0 32.0-36.0 g/dL Red Cell Distribution Width 14.4 H 11.8-14.3 % Platelet Count 218 140-450 10^3/uL Mean Platelet Volume 7.0 6.9-10.8 fL Neutrophils (%) (Auto) 64.7 37.0-80.0 % Lymphocytes (%) (Auto) 19.0 10.0-50.0 % Monocytes (%) (Auto) 12.4 H 0.0-12.0 % Eosinophils (%) (Auto) 3.3 0.0-7.0 % Basophils (%) (Auto) 0.6 0.0-2.0 % Neutrophils # (Auto) 2.7 1.6-8.6 10 ^3/uL Lymphocytes # (Auto) 0.8 0.4-5.4 10 ^3/uL Monocytes # (Auto) 0.5 0-1.3 10 ^3/uL Eosinophils # (Auto) 0.1 0-0.8 10 ^3/uL Basophils # (Auto) 0 0-0.2 10 ^3/uL Nucleated Red Blood Cells 0.4 % Platelet Estimate Pending Prothrombin Time 12.6 H 9.3-11.8 sec Prothrombin Time INR 1.21 H 0.9-1.15 Activated Partial Thromboplast Time 29.3 24.5-34.5 SEC Sodium Level 134 L 136-145 mmol/L Potassium Level 3.8 3.5-5.1 mmol/L Chloride Level 104 98-107 mmol/L Carbon Dioxide Level 21 20-31 mmol/L Anion Gap 9 5-15 Blood Urea Nitrogen 15 9-23 mg/dL Creatinine 1.23 0.700-1.30 mg/dL Glomerular Filtration Rate Calc 70 >90 mL/min BUN/Creatinine Ratio 12.2 10.0-20.0 Serum Glucose 114 H 74-106 mg/dL Calcium Level 9.8 8.7-10.4 mg/dL Patient alert. Complaining of abdominal distention. History of liver disease with ascites. Vitals stable. States that he has stopped drinking alcohol. He was seen here few weeks ago for paracentesis. Explained to the patient. Continue monitoring. He did have his paracentesis. Insists on going home. Has an appointment with liver specialist. Was told to follow up with his primary care physician. Was told to come back if there is any problem. Time of 1ST Reevaluation: 07:30 Reevaluation 1ST: Unchanged Patient Education/Counseling: Diagnosis, Treatment Family Education/Counseling: No Family Present SEPSIS Sepsis Screen Physician Orders Complete Blood Count (05/24/25 07:11) * Radiologist Consult (05/24/25 07:11) Rbc Morphology (05/24/25 07:33) Paracentesis (05/24/25 09:01) Blood Alcohol (05/24/25 09:29) Comprehensive Metabolic Panel (05/24/25 09:29) Amylase (05/24/25 09:30) Lipase (05/24/25 09:30) Ammonia (05/24/25 09:31) Lactate Dehydrogenase (05/24/25 09:37) Protein, Body Fluid (05/24/25 09:37) Body Fluid Culture W/ Gs (05/24/25 09:37) Glucose Body Fluid (05/24/25 09:37) Body Fluid Ph (05/24/25 09:37) Gram Stain (05/24/25 09:37) Body Fluids, Diff. Cell Count (05/24/25 09:37) Vital Signs Date Time Temp Pulse Resp B/P (MAP) Pulse Ox O2 Delivery O2 Flow Rate FiO2 05/24/25 07:12 97.8 75 16 143/58 (86) 100 97.8 Laboratory Tests Test 05/24/25 07:33 White Blood Count 4.1 10^3/uL (4.4-10.8) L Departure 1 Departure Time of Disposition: 07:31 Impression: Primary Impression: Cirrhosis of liver with ascites Qualified Codes: K70.31 - Alcoholic cirrhosis of liver with ascites Disposition: 01 HOME / SELF CARE / HOMELESS Condition: Good Discharged With: Self Critical Care Note Critical Care Time?: No Stability Stability form required: No Heart Score Heart Score: Heart Score Response (Comments) Value History N/A 0 EKG N/A 0 Age N/A 0 Risk Factors N/A 0 Troponin N/A 0 Total 0 I personally scribed for JUN BRYANT MD ([email or web address]) on 05/24/25 at 07:26. Electronically submitted by Cara Nuñez ([email or web address]). JUN BRYANT MD May 24, 2025 07:26
[2025-05-24 08:05] LABS: Anion Gap 9 (5-15); Carbon Dioxide 21 mmol/L (20-31); Chloride 104 mmol/L (98-107); Potassium 3.8 mmol/L (3.5-5.1)
[2025-05-24 08:06] LABS: Calcium 9.8 mg/dL (8.7-10.4)
[2025-05-24 08:11] LABS: BUN/Creatinine Ratio 12.2 (10.0-20.0); Blood Urea Nitrogen 15 mg/dL (9-23)
[2025-05-24 08:12] LABS: Glucose 114 mg/dL (74-106); Sodium 134 mmol/L (136-145)
[2025-05-24 08:32] LABS: INR 1.21 (0.9-1.15); Partial Thromboplastin Time 29.3 SEC (24.5-34.5); Prothrombin Time 12.6 sec (9.3-11.8)
[2025-05-24 08:46] LABS: Hemoglobin 13.7 g/dL (13.5-17.5)
[2025-05-24 08:48] LABS: Hematocrit 38.1 % (41.0-53.0); Mean Corpuscular Hemoglobin 37.0 pg (28.0-32.0); Mean Corpuscular Volume 102.7 fL (80.0-100.0); Nucleated Red Blood Cells % 0.4 %
[2025-05-24 10:43] LABS: Alanine Aminotransferase 27 U/L (7-40); Albumin 3.5 g/dL (3.2-4.8); Alkaline Phosphatase 83 U/L (46-116); Anion Gap 10 (5-15); BUN/Creatinine Ratio 13.2 (10.0-20.0); Blood Urea Nitrogen 16 mg/dL (9-23); Calcium 9.4 mg/dL (8.7-10.4); Carbon Dioxide 21 mmol/L (20-31); Chloride 104 mmol/L (98-107); Potassium 3.9 mmol/L (3.5-5.1); Total Protein 6.9 g/dL (5.7-8.2)
--- NOTE | 2025-05-24 10:43 | DVH ---
US PARACENTESIS, HISTORY: ASCITES PROCEDURE: Informed consent was obtained. The patient was placed in supine position. A limited locali zation ultrasound of the abdomen was obtained, and the skin site over the largest pocket of fluid was marked and entry site was prepped with chlorhexidine which was allowed to dry and draped in the usua l sterile fashion. Time out was performed. Following administration of 1% lidocaine local anesthetic, a 5 [place] centesis needle catheter was percutaneously inserted into the peritoneal collection until fluid was aspirated. The catheter was advanced into the fluid collection [place] [id number] cc of fluid was aspirated and specimen sent for appropriate cultures/cytology/cultures and c ytology. The catheter was then removed and a sterile dressing applied. No immediate complication was identified. FINDINGS: Limited ultrasound imaging demonstrates moderate to large ascites. Aspirated fluid was endy r and serous. IMPRESSION: US-guided paracentesis with 10.8L removed.
[2025-05-24 10:44] LABS: Bilirubin, Total 3.8 mg/dL (0.2-1.0); Glucose 114 mg/dL (74-106); Sodium 135 mmol/L (136-145)
[2025-05-24 11:07] LABS: Macrocytosis Slight
[2025-05-24 11:25] LABS: Amylase 77 U/L (30-118)
[2025-05-24 11:44] LABS: Lipase 47 U/L (12-53)
[2025-05-25 12:07] LABS: Glucose, Body Fluid 98.0 mg/dL (.); LD, Body Fluid 55.0 IU/L (.)
== END 2025-05-24 10:25 | disposition home or self-care (01) ==
LOC: ER 06:29
DX: K70.31 Alcoholic cirrhosis of liver with ascites (principal); I10 Essential (primary) hypertension; F41.9 Anxiety disorder, unspecified; F32.A Depression, unspecified; Z79.899 Other long term (current) drug therapy; Z87.442 Personal history of urinary calculi; Z98.890 Other specified postprocedural states
CPT/HCPCS: 36415; 49083; 76942; 80048; 80053; 80320; 82150; 83690; 83986; 85025; 85610; 85730; 87205; 89051; 99285; C1729

== ENCOUNTER 2025-06-03 14:03 | Inpatient (IN) | payer MEDICAID ==
[~2025-06-03] VITALS: Ht 165.1 cm; Wt 74.0 kg
--- NOTE | 2025-06-03 14:29 | ED.PDOC ---
GI ASSESSMENT HPI Comments This is a 54 year old male presenting to the ED with chief complaint of abdominal distention. Patient reports that he has liver cirrhosis and has been experiencing abdominal distention for the past few days with associated pain. Patient relays that he was seen by his PCP today, being advised to come to the ED for paracentesis. Patient admits to drinking 3 beers this morning. Patient denies any N/V/D, dizziness, fever, chills, chest pain, or SOB. Chief Complaint: Abdominal Pain Time Seen by MD: 14:26 Primary Care Provider: NONE Reviewed Notes: Nurses Notes, Medications, Allergies Allergies: Coded Allergies: NO KNOWN ALLERGIES (Unverified , 03/12/20) Home Meds Active Scripts Tamsulosin HCl (Tamsulosin Hydrochloride) 0.4 Mg Cap, 0.4 MG PO HS for 30 Days, #30 CAP Prov:AZAM ANGELES RESIDENT 05/13/25 Furosemide (Lasix) 40 Mg Tab, 40 MG PO DAILY for 30 Days, #30 TAB 3 Refills Prov:JN ABRAHAM MD 04/05/25 Magnesium Oxide (MAGNESIUM OXIDE) 400 Mg Tab, 400 MG OR DAILY for 30 Days, #30 TAB Prov:PORSCHE CROWE RESIDENT 07/31/24 Potassium Chloride (Potassium Chloride ER) 20 Meq Tab, 20 MEQ PO DAILY for 30 Days, #30 TAB Prov:PORSCHE CROWE RESIDENT 07/31/24 Multiple Vitamin (Multivitamins) Tab, 1 TAB PO DAILY for 90 Days, #90 TAB 0 Refills Prov:ANUJ MULLIGAN STUDIO OWNER 04/06/24 Sucralfate (CARAFATE) 1 Gm Tab, 1 GM OR QID for 30 Days, #120 TAB Prov:ANUJ MULLIGAN STUDIO OWNER 04/06/24 Lisinopril (Lisinopril) 20 Mg Tab, 1 TAB PO DAILYPRN for 60 Days, #60 TAB Prov:ANUJ MULLIGAN STUDIO OWNER 04/06/24 Propranolol HCl (Propranolol Hydrochloride) 20 Mg Tab, 1 TAB PO BID for 60 Days, #120 TAB Prov:ANUJ MULLIGAN STUDIO OWNER 04/06/24 Reported Medications Pantoprazole Sodium Sesquihydr (Pantoprazole Sodium) 40 Mg Tab, 1 TAB PO BID 04/11/25 Furosemide (Furosemide) 40 Mg Tab, 1 TAB PO DAILY 04/11/25 Cholecalciferol (VITAMIN D3) 2,000 Unit Tab, 1 TAB PO DAILY for 90 Days, #90 02/03/25 Spironolactone (Spironolactone) 25 Mg Tab, 1 TAB PO DAILY for 30 Days, #30 02/03/25 Pantoprazole Sodium Sesquihydr (Protonix) 40 Mg Tab, 1 TAB PO BID for 30 Days, #60 02/02/25 Lactulose (Lactulose) 10 Gm/15 Ml Sharon, ML PO 11/25/24 Acamprosate Calcium (ACAMPROSATE CALCIUM DR) 333 Mg Tab, 333 MG PO QID, TAB 07/31/24 Folic Acid (Folic Acid) 1 Mg Tab, 1 MG PO DAILY, TAB 07/31/24 Thiamine Hcl (VITAMIN B-1) 100 Mg Tb, 1 TAB PO DAILY for 30 Days, #30 07/31/24 Information Source: Patient Mode of Arrival: Ambulatory Timing: Days Duration: Since onset Prehospital treatment: None Quality: Aching Vomitus: None Stool: Normal Severity: Moderate Recent: Ingestion of ETOH Recent Hx of: Liver Disease Pain Location: Diffuse Modifying Factors: Nothing Associated sign and symptoms: Abdominal Pain Past Medical History PAST MEDICAL HISTORY: Anxiety, Depression, HTN, Kidney Stones, Liver Surgical History: Hernia Repair Family History Family History: Family hx of Cancer Social History Smoker: Non-Smoker Alcohol: Heavy Drugs: Denies Drug Use Lives In: Home Constitutional: denies: chills, diaphoresis, fatigue, fever, malaise, sweats, weakness, others EENTM: denies: blurred vision, double vision, ear bleeding, ear discharge, ear drainage, ear pain, ear ringing, eye pain, eye redness, hearing loss, mouth p ain, mouth swelling, nasal discharge, nose bleeding, nose congestion, nose pain, photophobia, tearing, throat pain, throat swelling, voice changes, others Respiratory: denies: cough, hemoptysis, orthopnea, SOB at rest, shortness of br eath, SOB with excertion, stridor, wheezing, others Cardiovascular: denies: chest pain, dizzy spells, diaphoresis, Dyspnea on exertion, edema, irregular heart beat, left arm pain, lightheadedness, palpitations, PND, syncope, others Gastrointestinal: reports: abdomen distended, abdominal pain; denies: blood streaked bowels, constipated, diarrhea, dysphagia, difficulty swallowing, hematemesis, melena, nausea, poor appetite, poor fluid intake, rectal bleeding, rectal pain, vomiting, others Genitourinary: denies: burning, dysuria, flank pain, frequency, hematuria, incontinence, penile discharge, penile sore, pain, testicle pain, testicle swelling, urgency, others Neurological: denies: dizziness, fainting, headache, left sided numbness, left sided weakness, numbness, paresthesia, pre-existing deficit, right sided numbness, right sided weakness, seizure, speech problems, tingling, tremors, weakness, others Musculoskeletal: denies: back pain, gout, joint pain, joint swelling, muscle pain, muscle stiffness, neck pain, others Integumetry: denies: bruises, change in color, change in hair/nails, dryness, laceration, lesions, lumps, rash, wounds, others Allergic/Immunocompromised: denies: Difficulty Healing, Frequent Infections, Hives, Itching, others Hematologic/Lymphatic: denies: anemia, blood clots, easy bleeding, easy bruising, swollen glands, others Endocrine: denies: excessive hunger, excessive sweating, excessive thirst, excessive urination, flushing, intolerance to cold, intolerance to heat, unexplained weight gain, unexplained weight loss, others Psychiatric: denies: anxiety, bipolar disorder, depression, hopeless, panic disorder, schizophrenia, sleepless, suicidal, others All Other Systems: Reviewed and Negative Physical Exam General Appearance: Moderate Distress, Normal HEENT: Normal ENT Inspection, Pharynx Normal, Scleral Icterus (L), Scleral Icterus (R), TMs Normal Neck: Full Range of Motion, Non-Tender, Normal, Normal Inspection Respiratory: Chest Non-Tender, Lungs Clear, No Accessory Muscle Use, No Respiratory Distress, Normal Breath Sounds Cardiovascular: No Edema, No JVD, No Murmur, No Gallop, Normal Peripheral Pulses, Regular Rate/Rhythm Breast Exam: Deferred Gastrointestinal: Distended, No Organomegaly, No Pulsatile Mass, Normal Bowel Sounds Genitalia: Deferred Pelvic: Deferred Rectal: Deferred Extremities: No calf tenderness, Normal capillary refill, Normal inspection, Normal range of motion, Non-tender, No pedal edema Musculoskeletal : Apperance: Normal Neurologic: Alert, sales assistant II-XII nml as Tested, No Motor Deficits, Normal Affect, Normal Mood, No Sensory Deficits Cerebellar Function: Normal Reflexes: Normal Skin: Dry, Normal Color, Warm Peripheral Pulses: 3+ Radial (R), 3+ Radial (L) Lymphatic: No Adenopathy Was a procedure done? Was a procedure done?: No GI differential Dx Differential Diagnosis: Constipation, Diverticular disease, Esophagitis, Gastritis/PUD, Gastroenteritis X-Ray, Labs, Meds, VS Vital Signs Date Time Temp Pulse Resp B/P (MAP) Pulse Ox O2 Delivery O2 Flow Rate FiO2 06/03/25 14:04 97.7 82 18 155/83 99 97.7 Patient alert. Came in because of abdominal distention. Continues to drink alcohol. Saturation pristine on room air. Possible sepsis. Hold the fluids because of liver cirrhosis with ascites. Counseled patient on effects of drinking for 15 minutes. He will need paracentesis. Explained to the patient. Continue monitoring. Time of 1ST Reevaluation: 15:26 Reevaluation 1ST: Unchanged Patient Education/Counseling: Diagnosis, Treatment Family Education/Counseling: No Family Present SEPSIS Sepsis Screen Date sepsis recognized/suspect: Jun 03, 2025 Time Sepsis recognized/suspect: 1406 Recent Procedure: No On Antibiotic Therapy: No Respiratory Rate >20: No Heart Rate >90: No Temp<36 C (96.8 F) or >38.3 C: No SBP <90 or MAP <65 mmHG: No New Acute Mental Status Change: No Is the patient on CPAP, BIPAP,: No Physician Orders Complete Blood Count (06/03/25 14:27) Comprehensive Metabolic Panel (06/03/25 14:27) Ct Ab Pel Wo Con-No Oral Or Iv (06/03/25 14:27) Blood Culture (06/03/25 14:27) Lactic Acid W/ Reflex Order (06/03/25 14:27) Ceftriaxone 1gm/50ml D5w (Rocephin) (06/03/25 14:30) Metronidazole 500mg/100ml (Flagyl 500mg/ (06/03/25 14:30) Vital Signs Date Time Temp Pulse Resp B/P (MAP) Pulse Ox O2 Delivery O2 Flow Rate FiO2 06/03/25 14:04 97.7 82 18 155/83 99 97.7 Departure 1 Departure Time of Disposition: 14:58 Impression: Primary Impression: Alcoholic cirrhosis of liver with ascites Disposition: ADMITTED INPATIENT Admit to: Med Surg Condition: Guarded Critical Care Note Critical Care Time?: No Stability Stability form required: No Heart Score Heart Score: Heart Score Response (Comments) Value History N/A 0 EKG N/A 0 Age N/A 0 Risk Factors N/A 0 Troponin N/A 0 Total 0 I personally scribed for JUN BRYANT MD ([email or web address]) on 06/03/25 at 14:29. Electronically submitted by Raj Fuentes ([email or web address]). JUN BRYANT MD Jun 03, 2025 14:29
[2025-06-03] MEDS ORDERED: SODIUM CHLORIDE 0.9% 1,000 ML IV ONE ×2 (14:30)
--- NOTE | 2025-06-03 15:00 | DVH ---
Exam: CT CT AB PEL WO CON-NO ORAL OR IV History: diffusepain Comparison Study: CT CT AB PEL WO CON-NO ORAL OR IV on DOS: 05/11/25, CT CT AB PEL WO CON-NO ORAL OR IV on DOS: 04/11/25, CT CT AB PEL WO CON-NO ORAL OR IV on DOS: 04/01/25, CT CT AB PEL WO CON-NO ORAL OR IV on DOS: 02/18/25, CT CT AB PEL WO CON-NO ORAL OR IV on DOS: 02/02/25 TECHNIQUE: Multidetector CT of the abdomen and pelvis without IV contrast. Axial, coronal and sagittal multiplan ar reformats were obtained from the axial data set by the technologist. Radiation Dose Information: CT Dose: CTDI volume is 13.72 mGy. Dose-length product is 703.39 mGy*cm FINDINGS: Small left with trace right-sided pleural effusions and associated atelectasis. Partially visualized heart is unremarkable. Cirrhotic appearing liver with recanalization of the umbilical vein, upper abdominal varices and scott roesophageal varices. Limited evaluation of the liver parenchyma given noncontrast imaging. Spleen, pancreas and adrenal glands unremarkable. Cholelithiasis with limited evaluation for acute ch olecystitis given surrounding ascites. Kidneys and ureters are unremarkable. Urinary bladder is decompressed with Galvez catheter in place. F oci of air within the urinary bladder which is most likely iatrogenic. Prostate is unremarkable. Mild gastric wall thickening. Small bowel loops unremarkable. Appendix is unremarkable. Mild wall thi ckening of the descending colon and sigmoid which is most likely from inadequate distension. Large volume ascites. No evidence of intraperitoneal free air. No evidence of aortic aneurysm. Mild atherosclerotic calcification of bilateral iliacs. No significant lymphadenopathy. Small to moderate fat and ascitic fluid containing bilateral inguinal hernias. Large ascitic fluid co ntaining multiloculated /septated umbilical hernia. Mild pelvic with minimal lateral and lower back S ubcutaneous fat edema. No acute osseous abnormalities. Mild chronic appearing loss of vertebral body height of L5. Sclerotic focus of the left proximal femur which may represent a bone island. Impression:Cirrhotic appearing liver with findings of portal venous hypertension. Large volume ascite s with a large ascitic fluid containing multiloculated/septated umbilical hernia. Cholelithiasis with limited evaluation for acute cholecystitis given ascites. Mild gastric wall thickening which may be due to inadequate distention/ portal hypertensive gastropathy /mild gastritis. Additional findings as above.
[2025-06-03 15:20] LABS: Hemoglobin 14.9 g/dL (13.5-17.5); Nucleated Red Blood Cells % 0.1 %
[2025-06-03 15:22] LABS: Hematocrit 41.3 % (41.0-53.0); Mean Corpuscular Hemoglobin 36.0 pg (28.0-32.0); Mean Corpuscular Volume 99.7 fL (80.0-100.0)
[2025-06-03 15:32] LABS: Albumin 3.5 g/dL (3.2-4.8); Anion Gap 10 (5-15); BUN/Creatinine Ratio 8.0 (10.0-20.0); Calcium 9.3 mg/dL (8.7-10.4); Chloride 100 mmol/L (98-107); Potassium 4.3 mmol/L (3.5-5.1); Total Protein 7.8 g/dL (5.7-8.2)
[2025-06-03 15:33] LABS: Alanine Aminotransferase 40 U/L (7-40); Alkaline Phosphatase 126 U/L (46-116); Bilirubin, Total 5.0 mg/dL (0.2-1.0); Blood Urea Nitrogen 8 mg/dL (9-23); Carbon Dioxide 20 mmol/L (20-31); Glucose 106 mg/dL (74-106); Sodium 130 mmol/L (136-145)
[2025-06-03 15:36] LABS: Lactic Acid w/Reflex 2.5 mmol/L (0.4-2.0)
[2025-06-03 17:19] LABS: INR 1.2 (0.9-1.15); Partial Thromboplastin Time 29.3 SEC (24.5-34.5); Prothrombin Time 12.5 sec (9.3-11.8)
--- NOTE | 2025-06-03 17:21 | DVHHP2 ---
History of Present Illness Reason for Visit: Abdominal distention History of Present Illness 54-year-old male presents for evaluation of abdominal distention. Patient with liver cirrhosis secondary to alcohol abuse presents with worsening abdominal distention shortness for breath. Patient reports having a paracentesis two weeks ago. Patient continues to drink alcohol, last time was this morning. Denies fever or chills. Past Medical History Hypertension, liver cirrhosis Past Surgical History Hernia repair Family History Cancer Smoke: No ALCOHOL: heavy Drugs: None Lives: with Family Review of Systems Review of Systems Review of systems are currently negative otherwise addressed in HPI. Allergies: Coded Allergies: NO KNOWN ALLERGIES (Unverified , 03/12/20) Medications Current Medications Medications Dose Ordered Sig/Adama Route Start Time Stop Time Status Last Admin Dose Admin Bumetanide 1 mg BIDD PO 06/03/25 18:00 Tamsulosin HCl 0.4 mg QPM PO 06/03/25 18:00 Propranolol HCl 20 mg BID PO 06/03/25 22:00 Spironolactone 50 mg DAILY PO 06/04/25 10:00 Pantoprazole Sodium 40 mg DAILY@0600 PO 06/04/25 06:00 Ondansetron HCl 4 mg Q4HP PRN IV 06/03/25 15:30 Morphine Sulfate 2 mg Q6HPRN PRN IV 06/03/25 15:30 Chlordiazepoxide HCl 25 mg Q6HPRN PRN PO 06/03/25 17:30 UNV Exam Vital Signs Vital Signs Date Time Temp Pulse Resp B/P (MAP) Pulse Ox O2 Delivery O2 Flow Rate FiO2 06/03/25 14:04 97.7 82 18 155/83 99 97.7 Exam Gen: 54-year-old male in mild distress Skin: Warm, dry, normal color and texture, no rash. HEENT: Normocephalic atraumatic, mucous membranes moist and pink. Neck: Cervical and supraclavicular nodes normal without enlargement, trachea is midline, thyroid gland is normal without masses. Pulmonary: Clear to auscultation and percussion bilaterally. Cardiac: Regular rate and rhythm. No murmur Abdomen: Soft, nontender, distended ascites, bowel sounds present all 4 quad rants, no guarding, no rigidity, no organomegaly. Extremities: No cyanosis, clubbing, no edema Neuro: Cranial nerves II through XII grossly intact, normal affect and speech, no focal motor deficits. Labs/Xrays ORDERING PHYSICIAN: JUN BRYANT MD PROCEDURE(s): ABPL - CT AB PEL WO CON-NO ORAL OR IV REASON: diffusepain ORDER NUMBER(s): [id number], ACCESSION NUMBER(s): [id number] Exam: CT CT AB PEL WO CON-NO ORAL OR IV History: diffusepain Comparison Study: CT CT AB PEL WO CON-NO ORAL OR IV on DOS: 05/11/25, CT CT AB PEL WO CON-NO ORAL OR IV on DOS: 04/11/25, CT CT AB PEL WO CON-NO ORAL OR IV on DOS: 04/01/25, CT CT AB PEL WO CON-NO ORAL OR IV on DOS: 02/18/25, CT CT AB PEL WO CON- NO ORAL OR IV on DOS: 02/02/25 TECHNIQUE: Multidetector CT of the abdomen and pelvis without IV contrast. Axial, coronal and sagittal multiplanar reformats were obtained from the axial data set by the technologist. Radiation Dose Information: CT Dose: CTDI volume is 13.72 mGy. Dose-length product is 703.39 mGy*cm FINDINGS: Small left with trace right-sided pleural effusions and associated atelectasis. Partially visualized heart is unremarkable. Cirrhotic appearing liver with recanalization of the umbilical vein, upper abdominal varices and gastroesophageal varices. Limited evaluation of the liver parenchyma given noncontrast imaging. Spleen, pancreas and adrenal glands unremarkable. Cholelithiasis with limited evaluation for acute cholecystitis given surrounding ascites. Kidneys and ureters are unremarkable. Urinary bladder is decompressed with Galvez catheter in place. Foci of air within the urinary bladder which is most likely iatrogenic. Prostate is unremarkable. Mild gastric wall thickening. Small bowel loops unremarkable. Appendix is unremarkable. Mild wall thickening of the descending colon and sigmoid which is most likely from inadequate distension. Large volume ascites. No evidence of intraperitoneal free air. No evidence of aortic aneurysm. Mild atherosclerotic calcification of bilateral iliacs. No significant lymphadenopathy. Small to moderate fat and ascitic fluid containing bilateral inguinal hernias. Large ascitic fluid containing multiloculated /septated umbilical hernia. Mild pelvic with minimal lateral and lower back Subcutaneous fat edema. No acute osseous abnormalities. Mild chronic appearing loss of vertebral body height of L5. Sclerotic focus of the left proximal femur which may represent a bone island. Impression:Cirrhotic appearing liver with findings of portal venous hypertension. Large volume ascites with a large ascitic fluid containing multiloculated/septated umbilical hernia. Cholelithiasis with limited evaluation for acute cholecystitis given ascites. Mild gastric wall thickening which may be due to inadequate distention/ portal hypertensive gastropathy /mild gastritis. Additional findings as above. Labs Test 06/03/25 16:55 06/03/25 14:57 Range/Units White Blood Count 5.9 4.4-10.8 10^3/uL Red Blood Count 4.14 L 4.5-5.90 10^6/uL Hemoglobin 14.9 13.5-17.5 g/dL Hematocrit 41.3 41.0-53.0 % Mean Corpuscular Volume 99.7 80.0-100.0 fL Mean Corpuscular Hemoglobin 36.0 H 28.0-32.0 pg Mean Corpuscular Hemoglobin Concent 36.1 H 32.0-36.0 g/dL Red Cell Distribution Width 14.4 H 11.8-14.3 % Platelet Count 201 140-450 10^3/uL Mean Platelet Volume 6.5 L 6.9-10.8 fL Neutrophils (%) (Auto) 61.0 37.0-80.0 % Lymphocytes (%) (Auto) 21.4 10.0-50.0 % Monocytes (%) (Auto) 12.6 H 0.0-12.0 % Eosinophils (%) (Auto) 4.2 0.0-7.0 % Basophils (%) (Auto) 0.8 0.0-2.0 % Neutrophils # (Auto) 3.6 1.6-8.6 10 ^3/uL Lymphocytes # (Auto) 1.3 0.4-5.4 10 ^3/uL Monocytes # (Auto) 0.7 0-1.3 10 ^3/uL Eosinophils # (Auto) 0.2 0-0.8 10 ^3/uL Basophils # (Auto) 0 0-0.2 10 ^3/uL Nucleated Red Blood Cells 0.1 % Sodium Level 130 L 136-145 mmol/L Potassium Level 4.3 3.5-5.1 mmol/L Chloride Level 100 98-107 mmol/L Carbon Dioxide Level 20 20-31 mmol/L Anion Gap 10 5-15 Blood Urea Nitrogen 8 L 9-23 mg/dL Creatinine 1.00 0.700-1.30 mg/dL Glomerular Filtration Rate Calc 90 >90 mL/min BUN/Creatinine Ratio 8.0 L 10.0-20.0 Serum Glucose 106 74-106 mg/dL Calcium Level 9.3 8.7-10.4 mg/dL Total Bilirubin 5.0 H 0.2-1.0 mg/dL Aspartate Amino Transferase (AST) 90 H 13-40 U/L Alanine Aminotransferase (ALT) 40 7-40 U/L Alkaline Phosphatase 126 H 46-116 U/L Total Protein 7.8 5.7-8.2 g/dL Albumin 3.5 3.2-4.8 g/dL SEPSIS Sepsis Screen Date sepsis recognized/suspect: Jun 03, 2025 Time Sepsis recognized/suspect: 1405 Recent Procedure: No On Antibiotic Therapy: No Respiratory Rate >20: No Heart Rate >90: No Temp<36 C (96.8 F) or >38.3 C: No SBP <90 or MAP <65 mmHG: No New Acute Mental Status Change: No Is the patient on CPAP, BIPAP,: No Physician Orders Ct Ab Pel Wo Con-No Oral Or Iv (06/03/25 14:27) Blood Culture (06/03/25 14:27) Bumetanide Tablet (Bumex Tablet) (06/03/25 18:00) Tamsulosin Hydrochloride (Flomax) (06/03/25 18:00) Propranolol Hcl Tablet (Inderal Tablet) (06/03/25 22:00) Spironolactone (Aldactone) (06/04/25 10:00) Pantoprazole Tablet (Protonix Tablet) (06/04/25 06:00) PTPTT (06/03/25 15:16) * Radiologist Consult (06/03/25 15:16) Hepatic Diet (50gmpro,2gmna) (06/03/25 Dinner) Basic Metabolic Panel (06/04/25 04:00) Admit (06/03/25 15:16) Ondansetron Hcl (Zofran) (06/03/25 15:30) Condition: Stable (06/03/25 15:16) Bedrest With Bathroom Privileg (06/03/25 15:16) Morphine Sulfate Injection (06/03/25 15:30) Chlordiazepoxide Hcl Capsule (Librium Ca (06/03/25 17:30) Ceftriaxone Ivpb Rocephin (06/04/25 09:00) Ceftriaxone Ivpb Rocephin (06/03/25 17:30) Blood Culture (06/03/25 17:16) Vital Signs Date Time Temp Pulse Resp B/P (MAP) Pulse Ox O2 Delivery O2 Flow Rate FiO2 06/03/25 14:04 97.7 82 18 155/83 99 97.7 Laboratory Tests Test 06/03/25 14:57 06/03/25 16:55 Lactic Acid Level 2.5 mmol/L (0.4-2.0) *H Pending White Blood Count 5.9 10^3/uL (4.4-10.8) Assessment/Plan Assessment/Plan Assessment Abdominal distention with ascites Liver cirrhosis secondary to alcohol abuse Hypertension Lactic acidosis, rule out peritonitis Plan Admit the patient to [facility] to the hospitalist Radiology consultation Resume home medications Continue treatment per orders. Plan discussed with: Patient My Orders Orders - HARSHA OBREGON Procedure Category Date Status Time Bumetanide Tablet PHA 06/03/25 In Process (Bumex Tablet) 18:00 Tamsulosin PHA 06/03/25 In Process Hydrochloride (Flomax) 18:00 Propranolol Hcl PHA 06/03/25 In Process Tablet (Inderal 22:00 Spironolactone PHA 06/04/25 In Process (Aldactone) 10:00 Pantoprazole Tablet PHA 06/04/25 In Process (Protonix Tablet) 06:00 PTPTT LAB 06/03/25 In Process 15:16 * Radiologist Consult CONS 06/03/25 Transmitted 15:16 Hepatic Diet DIET 06/03/25 Transmitted (50gmpro,2gmna) Dinner Basic Metabolic Panel LAB 06/04/25 Verified 04:00 Admit ADMIT 06/03/25 Transmitted 15:16 Ondansetron Hcl PHA 06/03/25 In Process (Zofran) 15:30 Condition: Stable JOSE 06/03/25 In Process 15:16 Bedrest With Bathroom JOSE 06/03/25 In Process Privileg 15:16 Morphine Sulfate PHA 06/03/25 In Process Injection 15:30 Chlordiazepoxide Hcl PHA 06/03/25 Transmitted Capsule (Librium Ca 17:30 Ceftriaxone Ivpb PHA 06/04/25 Transmitted Rocephin 09:00 Ceftriaxone Ivpb PHA 06/03/25 Transmitted Rocephin 17:30 Blood Culture JUAN 06/03/25 Uncollected 17:16 Date of Service: Jun 03, 2025 Billing Provider: HARSHA OBREGON Common Visit Codes: [id number] INP/OBS CARE (HIGH) HARSHA OBREGON Jun 03, 2025 17:21
[2025-06-03] MEDS: cefTRIAXone 1GM/50ML D5W 50 ML IV ONE ×2 (17:41→18:36)
[2025-06-03 17:48] VITALS: PULSE 92; RESP 16; O2SAT 100
[2025-06-03] MEDS: TAMSULOSIN HYDROCHLORIDE 0.4 MG CAP PO SCH (18:39)
[2025-06-03] MEDS: BUMETANIDE 1 MG TAB PO SCH (18:39)
[2025-06-03] MEDS: PROPRANOLOL HCL 20 MG TAB PO SCH (23:39)
[2025-06-04] VITALS (9 sets, daily range): BP systolic 92–115; BP diastolic 58–74; PULSE 82–91; RESP 18–20; TEMP 97.4–98.3; O2SAT 97–100
[2025-06-04] MEDS: ONDANSETRON HCL 4 MG/2 ML VIAL IV PRN (03:02)
[2025-06-04] MEDS: MORPHINE SULFATE INJ 2 MG/ml SYRG IV PRN (03:03)
[2025-06-04] MEDS: PANTOPRAZOLE 40 MG TAB PO SCH (06:14)
[2025-06-04 07:59] LABS: Anion Gap 11 (5-15); Chloride 100 mmol/L (98-107); Potassium 4.7 mmol/L (3.5-5.1)
[2025-06-04 08:02] LABS: Calcium 8.7 mg/dL (8.7-10.4); Carbon Dioxide 19 mmol/L (20-31); Sodium 130 mmol/L (136-145)
[2025-06-04 08:05] LABS: BUN/Creatinine Ratio 11.0 (10.0-20.0); Blood Urea Nitrogen 17 mg/dL (9-23); Glucose 123 mg/dL (74-106)
--- NOTE | 2025-06-04 10:03 | DVH ---
PROCEDURE: Ultrasound-guided paracentesis Procedural Personnel Attending physician(s): Jose Guzman Fellow physician(s): None Resident physician(s): None Advanced practice provider(s): None Pre-procedure diagnosis: Ascites Post-procedure diagnosis: Same Indication: PARACENTESIS Additional clinical history: None Complications: No immediate complications. IMPRESSION: Ultrasound-guided paracentesis with drainage of 5000 mL of serous fluid. Plan: Resume care by clinical team. PROCEDURE SUMMARY: - Ultrasound-guided paracentesis - Additional procedure(s): None PROCEDURE DETAILS: Pre-procedure Consent: Informed consent for the procedure including risks, benefits and alternatives was obtained a nd time-out was performed prior to the procedure. Preparation: The site was prepared and draped using maximal sterile barrier technique including cutan eous antisepsis. Anesthesia/sedation Level of anesthesia/sedation: No sedation Anesthesia/sedation administered by: Not applicable Total intra-service sedation time (minutes): Not applicable Initial abdominal ultrasound Initial abdominal ultrasound was performed. Findings: Large ascites. Paracentesis Local anesthesia was administered. A safe window for paracentesis was identified with ultrasound. The peritoneal cavity was accessed and fluid return confirmed position. Ascites was drained. The cathete r was removed and a sterile dressing was applied. Catheter size (Fr):8 Fluid appearance: serous Volume drained (mL): 5000 Post-drainage ultrasound: Small ascites Albumin Administration Grams of albumin given intravenously: None Additional Details Additional description of procedure: None Registry event: V/3/f Device used: None Equipment details: None Specimens removed: Aspirated fluid was not sent for analysis. Estimated blood loss (mL): Less than 10 Standardized report: [email or web address] Attestation Signer name: Jose Guzman I attest that I was present for the entire procedure. I reviewed the stored images and agree with the report as written.
[2025-06-04] MEDS: cefTRIAXone 1GM/50ML D5W 50 ML IV SCH (10:25)
[2025-06-04] MEDS: SPIRONOLACTONE 25 MG TAB PO SCH (10:25)
--- NOTE | 2025-06-04 17:17 | DVHPN2 ---
Subjective This is a follow up on 54-year-old male who initially presented to the hospital with the abdominal distention status post paracentesis with 5 L fluid was removed. Changes from previous H/P or p: No Changes Objective Vitals Vital Signs Date Time Temp Pulse Resp B/P (MAP) Pulse Ox O2 Delivery O2 Flow Rate FiO2 06/04/25 17:09 103/59 06/04/25 16:52 98.3 91 18 99 98.3 06/04/25 08:00 Room Air* 0 21 Intake/Output Intake and Output 06/04/25 07:00 Intake Total 150 ml Balance 150 ml IV Total 150 ml Exam HEENT pupils are reactive Neck is supple CV is S1-S2 regular rate and rhythm Respiratory viral clear GI posterior bowel sounds soft mildly distended Extremity no edema [employer] no motor deficit Medications Current Medications Medications Dose Ordered Sig/Adama Route Start Time Stop Time Status Last Admin Dose Admin Bumetanide 1 mg BIDD PO 06/03/25 18:00 06/04/25 17:09 1 MG Tamsulosin HCl 0.4 mg QPM PO 06/03/25 18:00 06/04/25 17:08 0.4 MG Propranolol HCl 20 mg BID PO 06/03/25 22:00 06/04/25 10:25 20 MG Spironolactone 50 mg DAILY PO 06/04/25 10:00 06/04/25 10:25 50 MG Pantoprazole Sodium 40 mg DAILY@0600 PO 06/04/25 06:00 06/04/25 06:14 40 MG Ondansetron HCl 4 mg Q4HP PRN IV 06/03/25 15:30 06/04/25 03:02 4 MG Morphine Sulfate 2 mg Q6HPRN PRN IV 06/03/25 15:30 06/04/25 03:03 2 MG Chlordiazepoxide HCl 25 mg Q6HPRN PRN PO 06/03/25 17:30 Ceftriaxone Sodium 50 ml @ 100 mls/hr DAILY@09 IV 06/04/25 09:00 06/04/25 10:25 100 MLS/HR Laboratory Results Laboratory Tests 06/03/25 14:57 06/04/25 07:34 Chemistry Test 06/04/25 07:34 Calcium Level 8.7 mg/dL (8.7-10.4) Microbiology Microbiology Date/Time Source Procedure Growth Status 06/03/25 14:57 Blood Blood Culture - Preliminary NO GROWTH AFTER 24 HOURS OF INCUBATION. Resulted Assessment/Plan Assessment/Plan 54-year-old male with a known history of hypertension, chronic alcoholism, liver cirrhosis presented to the hospital with the abdominal distention found to have 1. Ascites status post paracentesis 2. End-stage liver disease with a recurrent ascites 3. Hypertension -continue pain meds, continue home medication including Lasix and Aldactone, discharge plan. Plan discussed with: Patient Date of Service: Jun 04, 2025 Billing Provider: AWILDA JONES MD Common Visit Codes: [id number] INP/OBS CARE(MOD) AWILDA JONES MD Jun 04, 2025 17:17
[2025-06-05 00:58] VITALS: BP 98/59; PULSE 85; RESP 16; TEMP 98.2; O2SAT 99
[2025-06-05 05:00] VITALS: BP 101/62; PULSE 80; RESP 18; TEMP 98.5; O2SAT 97
[2025-06-05 10:07] VITALS: BP 104/65; PULSE 78; RESP 20; TEMP 98.3; O2SAT 98
[2025-06-05 13:08] LABS: Glucose, Body Fluid 133.0 mg/dL (.); LD, Body Fluid 53.0 IU/L (.)
--- NOTE | 2025-06-09 15:57 | DVHDS2 ---
Discharge Summary Date of Admission Jun 03, 2025 at 15:19 Date of Discharge: Jun 05, 2025 Labs/Diagnostic Data: Laboratory Results Test 06/04/25 10:25 06/04/25 07:34 06/03/25 16:55 06/03/25 14:57 Body Fluid Source Peritoneal fluid Body Fluid pH 8.0 Body Fluid WBC (Manual) 233 CUMM (0-200) Body Fluid RBC (Manual) 419 CUMM (0-2000) Body Fluid Mononuclear Cells 95 % Body Fluid Polymorphonuclear Cells 5 % (0-25) Body Fluid Glucose 133 mg/dL (.) Body Fluid Total Protein 2.0 g/dL (.) Body Fluid Lactate Dehydrogenase 53 IU/L (.) Sodium Level 130 mmol/L (136-145) Potassium Level 4.7 mmol/L (3.5-5.1) Chloride Level 100 mmol/L (98-107) Carbon Dioxide Level 19 mmol/L (20-31) Anion Gap 11 (5-15) Blood Urea Nitrogen 17 mg/dL (9-23) Creatinine 1.55 mg/dL (0.700-1.30) Glomerular Filtration Rate Calc 53 mL/min (>90) BUN/Creatinine Ratio 11.0 (10.0-20.0) Serum Glucose 123 mg/dL (74-106) Calcium Level 8.7 mg/dL (8.7-10.4) Prothrombin Time 12.5 sec (9.3-11.8) Prothrombin Time INR 1.20 (0.9-1.15) Activated Partial Thromboplast Time 29.3 SEC (24.5-34.5) Lactic Acid Level 2.6 mmol/L (0.4-2.0) White Blood Count 5.9 10^3/uL (4.4-10.8) Red Blood Count 4.14 10^6/uL (4.5-5.90) Hemoglobin 14.9 g/dL (13.5-17.5) Hematocrit 41.3 % (41.0-53.0) Mean Corpuscular Volume 99.7 fL (80.0-100.0) Mean Corpuscular Hemoglobin 36.0 pg (28.0-32.0) Mean Corpuscular Hemoglobin Concent 36.1 g/dL (32.0-36.0) Red Cell Distribution Width 14.4 % (11.8-14.3) Platelet Count 201 10^3/uL (140-450) Mean Platelet Volume 6.5 fL (6.9-10.8) Neutrophils (%) (Auto) 61.0 % (37.0-80.0) Lymphocytes (%) (Auto) 21.4 % (10.0-50.0) Monocytes (%) (Auto) 12.6 % (0.0-12.0) Eosinophils (%) (Auto) 4.2 % (0.0-7.0) Basophils (%) (Auto) 0.8 % (0.0-2.0) Neutrophils # (Auto) 3.6 10 ^3/uL (1.6-8.6) Lymphocytes # (Auto) 1.3 10 ^3/uL (0.4-5.4) Monocytes # (Auto) 0.7 10 ^3/uL (0-1.3) Eosinophils # (Auto) 0.2 10 ^3/uL (0-0.8) Basophils # (Auto) 0 10 ^3/uL (0-0.2) Nucleated Red Blood Cells 0.1 % Total Bilirubin 5.0 mg/dL (0.2-1.0) Aspartate Amino Transferase (AST) 90 U/L (13-40) Alanine Aminotransferase (ALT) 40 U/L (7-40) Alkaline Phosphatase 126 U/L (46-116) Total Protein 7.8 g/dL (5.7-8.2) Albumin 3.5 g/dL (3.2-4.8) Other Laboratory Tests 06/04/25 07:34 06/03/25 14:57 Brief Hx & Hospital Course: 54-year-old male with a known history of hypertension, chronic alcoholism, liver cirrhosis presented to the hospital with the abdominal distention found to have recurrent ascites. Eventually patient was admitted IR was consulted. Patient underwent paracentesis in which 5 L was removed. Patient was want to be discharged but patient left against medical advice. Condition at Discharge: Undetermined Final Diagnosis/Problems List 1. Recurrent ascites status post paracentesis 2. End-stage liver disease with a recurrent ascites 3. Chronic alcoholism 4. Hypertension 5. Noncompliance Discharge Disposition: AMA SNF Discharge Will this Physician continue t: No Discharge Instruct/Medications Scheduled Acamprosate Calcium (Acamprosate Calcium Dr), 333 MG PO QID, (Reported) Cholecalciferol (Vitamin D3), 1 TAB PO DAILY, (Reported) Folic Acid (Folic Acid), 1 MG PO DAILY, (Reported) Furosemide (Lasix), 40 MG PO DAILY Furosemide (Furosemide), 1 TAB PO DAILY, (Reported) Lisinopril (Lisinopril), 1 TAB PO DAILYPRN Magnesium Oxide (Magnesium Oxide), 400 MG OR DAILY Multiple Vitamin (Multivitamins), 1 TAB PO DAILY Pantoprazole Sodium Sesquihydr (Protonix), 1 TAB PO BID, (Reported) Pantoprazole Sodium Sesquihydr (Pantoprazole Sodium), 1 TAB PO BID, (Reported) Potassium Chloride (Potassium Chloride ER), 20 MEQ PO DAILY Propranolol HCl (Propranolol Hydrochloride), 1 TAB PO BID Spironolactone (Spironolactone), 1 TAB PO DAILY, (Reported) Sucralfate (Carafate), 1 GM OR QID Tamsulosin HCl (Tamsulosin Hydrochloride), 0.4 MG PO HS Thiamine Hcl (Vitamin B-1), 1 TAB PO DAILY, (Reported) Miscellaneous Medications Lactulose (Lactulose), ML PO, (Reported) Discharge Statement: "Patient was advised to return to the ER or call 911 if any headaches, dizziness, shortness of breath, chest pain, abdominal pain, bleeding, fevers, or worsening of medical condition. Patient was counseled about treatment plan, medications, possible side effects, patientverbalized understanding. All questions were answered to the best of my ability. This discharge took greater then 30 minutes in planning, reviewing documentation, counseling the patient, and discussing with other team members." ASSESSMENT ASSESSMENT Assessment Date of Service: Jun 05, 2025 Billing Provider: AWILDA JONES MD Common Visit Codes: [id number] DISCH DAY >30min AWILDA JONES MD Jun 09, 2025 15:57
== END 2025-06-05 09:45 | disposition left against medical advice (07) | DRG 280 ==
LOC: ER 14:03 → OVERFLOW 15:19 → CENTRAL 06-04 02:25
PROVIDERS: ADMIT Internal Medicine; ATTEND Internal Medicine
PROC: 0W9G3ZZ Drainage of Peritoneal Cavity, Percutaneous Approach (ICD-10-PCS; principal; 2025-06-04)
DX: K70.31 Alcoholic cirrhosis of liver with ascites (principal); E87.20 Acidosis, unspecified; K72.10 Chronic hepatic failure without coma; I10 Essential (primary) hypertension; Z53.29 Procedure and treatment not carried out because of patient's decision for other reasons; F10.10 Alcohol abuse, uncomplicated; F41.9 Anxiety disorder, unspecified; F32.A Depression, unspecified; Z87.442 Personal history of urinary calculi; Z79.899 Other long term (current) drug therapy; Y90.9 Presence of alcohol in blood, level not specified; Z91.199 Patient's noncompliance with other medical treatment and regimen due to unspecified reason
CPT/HCPCS: 36415; 49083; 74176; 76942; 80048; 80053; 83605; 83986; 85025; 85610; 85730; 87040; 87205; 89051; 96365; G0378; J2405; J3490

== ENCOUNTER 2025-06-17 05:53 | Emergency (ER) | payer MEDICAID ==
[~2025-06-17] VITALS: Ht 165.1 cm; Wt 81.0 kg
[2025-06-17 06:27] VITALS: PULSE 72; RESP 19; O2SAT 100
--- NOTE | 2025-06-17 06:31 | ED.PDOC ---
GI ASSESSMENT HPI Comments HPI: This is a 54 year old male presenting to the ED with chief complaint of abdominal distention. Patient reports that he has history of liver cirrhosis and has been having fluid drained from his abdomen for a few months now. Patient relays that it used to be once a month, then once every 2 weeks, and now he needs fluid drained once a week. Patient states he had scheduled outpatient paracentesis yesterday at [facility], but the office had been calling to confirm his appointment did not answer, deciding to come into the ED today for his abdomen to be drained. Patient notes he is currently taking water pills with minimal relief noted. Patient reports that he only feels full from the fluid at this time. Patient denies any abdominal pain, fever, chills, nausea, vomiting, diarrhea, chest pain, or SOB. However patient denies any abdominal pain today. Patient denies any shortness of breath. Initial Vitals BP: 112/72 HR: 77 RR: 18 O2: 100% Temp: 97.8F Past Medical History: Liver cirrhosis, HTN, anxiety, depression, kidney stones Past Surgical History: Hernia Repair Social History: Sober, denies smoking, and drug use. Medications: Lasix, Propranolol, Spirolactone Allergies: NKDA ETIENNE: HPI: Poor Historian. On Lasix and propranolol. REVIEW OF SYSTEMS: CONSTITUTIONAL: Denies acute: fever, diaphoresis, chills, generalized weakness. HEAD: Denies acute: headache, photophobia Eyes: Denies acute: Double vision, vision loss, eye pain, eye discharge. EARS: Denies acute: tinnitus, hearing loss, ear discharge, ear pain, THROAT: Denies acute: sore throat, swelling, difficulty swallowing , pain with swallowing, change in voice. NECK: Denies acute: neck pain, neck swelling, stiff neck. HEART: Denies acute : chest pain, palpitations, LUNGS: Denies acute: SOB, wheezing, cough, hemoptysis ABDOMEN: Denies acute: abdominal pain, Nausea, Vomiting, diarrhea, melena , hematemesis, hematochezia SKIN: Denies acute: rash, redness, lesions, itchiness. EXTREMITIES: Denies acute: calf pain, numbness, tingling, weakness, denies pain in extremity. Denies acute: Low back pain. Neuro: Denies acute: focal neurological deficit, motor or sensory focal neurological deficit, tremors, seizure like activity, confusion, dizziness, change in mental status, loss of bowel or bladder function, cauda equina like symptoms. : Denies acute: dysuria, hematuria, flank pain, increase in urinary frequency. PSYCH: Denies acute: hallucination, suicidal ideation, homicidal ideation. PHYSICAL EXAM: General: ----no----acute distress, awake and alert. Head: normocephalic, atraumatic. Neck: supple, trachea is midline, no swelling. Throat: Normal phonation. Eyes:, no erythema, no purulent discharge, no proptosis, no icterus. Heart: regular rate, regular rhythm, no significant murmur appreciated. Lungs: no apparent respiratory distress, Able to speak in full sentences. No wheezing, no rhonchi, no crackles. No stridors Clear to auscultation bilaterally. Abdomen: non tender to palpation, noted distended, soft, no guarding, no rebound, + bowel sounds. Neuro: Awake, Alert, oriented to name, self, situation, follows commands GCS=15. Speech is normal. Skin: no petechia, no purpura, no cyanosis, non-pale, not jaundice. Lower extremities: --trace- Pitting edema no deformity, no focal swelling, no calf TTP. Makes eye contact. moves all four extremities. Face: no apparent facial droop. Ambulating in the ED independently. ED COURSE: DISCLAIMER: This medical document was created using an electronic medical record system with voice recognition software and computerized dictation system. Although this document has been carefully reviewed, there might still be some phonetic and typographical errors. Occasional wrong-word or "sound-alike" substitutions may have occurred due to the inherent limitations of voice recognition software. These areas are purely typographical due to imperfections of the software programs and do not reflect any compromise in the patient's medical care. Please read the chart carefully and recognize, using context, where these substitutions have occurred. Chief Complaint: Abdominal Pain Time Seen by MD: 06:27 Primary Care Provider: NONE Reviewed Notes: Medications, Allergies Allergies: Coded Allergies: NO KNOWN ALLERGIES (Unverified , 03/12/20) Home Meds Active Scripts Tamsulosin HCl (Tamsulosin Hydrochloride) 0.4 Mg Cap, 0.4 MG PO HS for 30 Days, #30 CAP Prov:AZAM ANGELES RESIDENT 05/13/25 Furosemide (Lasix) 40 Mg Tab, 40 MG PO DAILY for 30 Days, #30 TAB 3 Refills Prov:JN ABRAHAM MD 04/05/25 Magnesium Oxide (MAGNESIUM OXIDE) 400 Mg Tab, 400 MG OR DAILY for 30 Days, #30 TAB Prov:PORSCHE CROWE RESIDENT 07/31/24 Potassium Chloride (Potassium Chloride ER) 20 Meq Tab, 20 MEQ PO DAILY for 30 Days, #30 TAB Prov:PORSCHE CROWE RESIDENT 07/31/24 Multiple Vitamin (Multivitamins) Tab, 1 TAB PO DAILY for 90 Days, #90 TAB 0 Refills Prov:ANUJ MULLIGAN CURRENCY MACHINE OPERATOR 04/06/24 Sucralfate (CARAFATE) 1 Gm Tab, 1 GM OR QID for 30 Days, #120 TAB Prov:ANUJ MULLIGAN CURRENCY MACHINE OPERATOR 04/06/24 Lisinopril (Lisinopril) 20 Mg Tab, 1 TAB PO DAILYPRN for 60 Days, #60 TAB Prov:ANUJ MULLIGAN CURRENCY MACHINE OPERATOR 04/06/24 Propranolol HCl (Propranolol Hydrochloride) 20 Mg Tab, 1 TAB PO BID for 60 Days, #120 TAB Prov:ANUJ MULLIGAN CURRENCY MACHINE OPERATOR 04/06/24 Reported Medications Pantoprazole Sodium Sesquihydr (Pantoprazole Sodium) 40 Mg Tab, 1 TAB PO BID 04/11/25 Furosemide (Furosemide) 40 Mg Tab, 1 TAB PO DAILY 04/11/25 Cholecalciferol (VITAMIN D3) 2,000 Unit Tab, 1 TAB PO DAILY for 90 Days, #90 02/03/25 Spironolactone (Spironolactone) 25 Mg Tab, 1 TAB PO DAILY for 30 Days, #30 02/03/25 Pantoprazole Sodium Sesquihydr (Protonix) 40 Mg Tab, 1 TAB PO BID for 30 Days, #60 02/02/25 Lactulose (Lactulose) 10 Gm/15 Ml Sharon, ML PO 11/25/24 Acamprosate Calcium (ACAMPROSATE CALCIUM DR) 333 Mg Tab, 333 MG PO QID, TAB 07/31/24 Folic Acid (Folic Acid) 1 Mg Tab, 1 MG PO DAILY, TAB 07/31/24 Thiamine Hcl (VITAMIN B-1) 100 Mg Tb, 1 TAB PO DAILY for 30 Days, #30 07/31/24 Information Source: Patient Mode of Arrival: Ambulatory Was a procedure done? Was a procedure done?: No GI differential Dx Differential Diagnosis: Other (SBP, DDX include but not limited to diverticulitis, colitis, gastroenteritis, acute abdomen, SBO, enteritis, constipation, volvulus, appendicitis, Gallbladder disease, choledocolithiasis, ascending cholangitis, pancreatitis, intraAbdominal mass/neoplasm, hepatitis, UTI, pylonephritis, kidney stone, aneurysm, dissection, Inflammatory bowel disease, gastroparesis, ischemic bowel.) X-Ray, Labs, Meds, VS Vital Signs Date Time Temp Pulse Resp B/P (MAP) Pulse Ox O2 Delivery O2 Flow Rate FiO2 06/17/25 08:00 98.3 65 14 114/71 (85) 99 98.3 06/17/25 07:32 66 06/17/25 06:27 98.7 69 16 118/71 (87) 100 98.7 06/17/25 06:27 72 19 100 Room Air* 0 21 06/17/25 05:55 97.8 77 18 112/72 100 97.8 Lab Test 06/17/25 09:00 06/17/25 08:22 06/17/25 06:30 Range/Units Body Fluid Source Pending Body Fluid pH Pending Body Fluid WBC (Manual) Pending Body Fluid RBC (Manual) Pending Body Fluid Mononuclear Cells Pending Body Fluid Polymorphonuclear Cells Pending Body Fluid Glucose Pending Body Fluid Total Protein Pending Body Fluid Lactate Dehydrogenase Pending Urine Color Light-yellow Yellow Urine Clarity Clear Clear Urine pH 6.0 5.0-9.0 Urine Specific [place] 1.007 1.001-1.035 Urine Protein Negative Negative Urine Ketones Negative Negative Urine Blood Negative Negative /uL Urine Nitrite Negative Negative Urine Bilirubin Negative Negative Urine Urobilinogen Normal Negative mg/dL Urine Leukocyte Esterase Negative Negative /uL Urine RBC 1 0 - 3 /hpf Urine Microscopic WBC 0-3 /HPF Urine Squamous Epithelial Cells None seen <5 /hpf Urine Bacteria None seen None Seen /hpf Urine Glucose Normal Normal mg/dL White Blood Count 4.8 4.4-10.8 10^3/uL Red Blood Count 3.58 L 4.5-5.90 10^6/uL Hemoglobin 13.1 L 13.5-17.5 g/dL Hematocrit 36.4 L 41.0-53.0 % Mean Corpuscular Volume 101.5 H 80.0-100.0 fL Mean Corpuscular Hemoglobin 36.4 H 28.0-32.0 pg Mean Corpuscular Hemoglobin Concent 35.9 32.0-36.0 g/dL Red Cell Distribution Width 14.6 H 11.8-14.3 % Platelet Count 168 140-450 10^3/uL Mean Platelet Volume 7.0 6.9-10.8 fL Neutrophils (%) (Auto) 57.2 37.0-80.0 % Lymphocytes (%) (Auto) 22.9 10.0-50.0 % Monocytes (%) (Auto) 14.3 H 0.0-12.0 % Eosinophils (%) (Auto) 5.2 0.0-7.0 % Basophils (%) (Auto) 0.4 0.0-2.0 % Neutrophils # (Auto) 2.8 1.6-8.6 10 ^3/uL Lymphocytes # (Auto) 1.1 0.4-5.4 10 ^3/uL Monocytes # (Auto) 0.7 0-1.3 10 ^3/uL Eosinophils # (Auto) 0.3 0-0.8 10 ^3/uL Basophils # (Auto) 0 0-0.2 10 ^3/uL Nucleated Red Blood Cells 0.0 % Prothrombin Time 12.3 H 9.3-11.8 sec Prothrombin Time INR 1.18 H 0.9-1.15 Activated Partial Thromboplast Time 27.9 24.5-34.5 SEC Sodium Level 137 136-145 mmol/L Potassium Level 4.3 3.5-5.1 mmol/L Chloride Level 106 98-107 mmol/L Carbon Dioxide Level 24 20-31 mmol/L Anion Gap 7 5-15 Blood Urea Nitrogen 14 9-23 mg/dL Creatinine 1.07 0.700-1.30 mg/dL Glomerular Filtration Rate Calc 83 >90 mL/min BUN/Creatinine Ratio 13.1 10.0-20.0 Serum Glucose 96 74-106 mg/dL Lactic Acid Level 2.1 *H 0.4-2.0 mmol/L Calcium Level 8.1 L 8.7-10.4 mg/dL Total Bilirubin 3.2 H 0.2-1.0 mg/dL Aspartate Amino Transferase (AST) 56 H 13-40 U/L Alanine Aminotransferase (ALT) 25 7-40 U/L Alkaline Phosphatase 90 46-116 U/L B-Type Natriuretic Peptide 42.28 0-100 pg/mL Total Protein 6.4 5.7-8.2 g/dL Albumin 2.7 L 3.2-4.8 g/dL Time of 1ST Reevaluation: 07:26 Reevaluation 1ST: Unchanged Time of 2ND Reevaluation: 09:19 (A proximally 7800 cc of ascites were removed. Patient tolerated the procedure well. Patient refused albumin. Patient refused repeat lactic acid for further evaluation. Patient refused IV access. Patient wants to be discharged home. Patient on since the risk of an incomplete workup. However his blood pressure remained stable.) Patient Education/Counseling: Diagnosis, Treatment Family Education/Counseling: No Family Present Departure 1 Departure Time of Disposition: 06:38 Impression: Primary Impression: Cirrhosis of liver with ascites Additional Impression: Status post abdominal paracentesis Disposition: 01 HOME / SELF CARE / HOMELESS Condition: Stable Additional Instructions: Additional instructions: You MUST follow-up with your primary care/family doctor in 1 to 2 days. If you are unable to see your primary care/family doctor, please return to our emergency room for re-assessment and re-evaluation in 1 to 2 days. Return to the emergency room here in our facility or to the nearest ER [facility] if your symptoms change or worsen. CONSULTATIONS: you MUST Follow-up for consultation as soon as possible with: ---gastroenterology in 1-2 days. Please call for appointment. You MUST call the consultants office yourself to make an appointment. You may need to arrange that through your insurance and/or your primary/family doctor. If you are unable to see the cleaning validation consultant in 1 to 2 days, you must return to our emergency room (or any other ER of your choice) for re-assessment and re- evaluation. Adequate fluid hydration. Discharged With: Self Critical Care Note Critical Care Time?: No I personally scribed for MARTA WHITAKER DO ([email or web address]) on 06/17/25 at 06:31. Electronically submitted by Raj Fuentes ([email or web address]). MARTA WHITAKER DO Jun 17, 2025 06:31
[2025-06-17 07:06] LABS: Alanine Aminotransferase 25 U/L (7-40); Alkaline Phosphatase 90 U/L (46-116); Anion Gap 7 (5-15); BUN/Creatinine Ratio 13.1 (10.0-20.0); Blood Urea Nitrogen 14 mg/dL (9-23); Carbon Dioxide 24 mmol/L (20-31); Chloride 106 mmol/L (98-107); Glucose 96 mg/dL (74-106); Potassium 4.3 mmol/L (3.5-5.1); Sodium 137 mmol/L (136-145); Total Protein 6.4 g/dL (5.7-8.2)
[2025-06-17 07:07] LABS: Hemoglobin 13.1 g/dL (13.5-17.5)
[2025-06-17 07:09] LABS: Hematocrit 36.4 % (41.0-53.0); Mean Corpuscular Hemoglobin 36.4 pg (28.0-32.0); Mean Corpuscular Volume 101.5 fL (80.0-100.0); Nucleated Red Blood Cells % 0.0 %
[2025-06-17 07:11] LABS: Albumin 2.7 g/dL (3.2-4.8); Bilirubin, Total 3.2 mg/dL (0.2-1.0); Calcium 8.1 mg/dL (8.7-10.4)
[2025-06-17 07:24] LABS: Lactic Acid w/Reflex 2.1 mmol/L (0.4-2.0)
[2025-06-17 07:26] LABS: INR 1.18 (0.9-1.15); Partial Thromboplastin Time 27.9 SEC (24.5-34.5); Prothrombin Time 12.3 sec (9.3-11.8)
[2025-06-17 07:30] VITALS: PULSE 67; RESP 15; O2SAT 99
[2025-06-17 08:36] LABS: Urine Protein, UAD Negative (Negative)
[2025-06-17] MEDS: FUROSEMIDE 20 MG/2 ML VIAL IV ONE (09:10)
[2025-06-17] MEDS: ALBUMIN 25% 100 ML IV ONE (09:11)
--- NOTE | 2025-06-17 10:09 | ECG ---
[facility] Test Date: 2025-06-17 Test Time: 07:29:27 Pat Name: JIAN GOULD Department: ED Room: Gender: M Crossband Layer: YINA : 1970 Requested By: MARTA WHITAKER Order Number: [id number] Reading MD: Yobani Subramanian Measurements Intervals Wilson Rate: 66 P: -5 NH: 140 QRS: 17 QRSD: 94 T: -9 QT: 422 QTc: 443 Interpretive Statements Sinus rhythm Borderline T abnormalities, inferior leads Electronically Signed On 06-21-2025 22:42:50 PDT by Yobani Subramanian Please click the below link to view image of tracing.
[2025-06-17 10:40] VITALS: BP 124/71; PULSE 71; RESP 16; TEMP 98.2; O2SAT 100
--- NOTE | 2025-06-17 11:04 | DVH ---
Ultrasound-guided paracentesis with drainage of 7800 mL of serous fluid. Plan: Resume care by clinical team. PROCEDURE SUMMARY: - Ultrasound-guided paracentesis - Additional procedure(s): None PROCEDURE DETAILS: Pre-procedure Consent: Informed consent for the procedure including risks, benefits and alternatives was obtained a nd time-out was performed prior to the procedure. Preparation: The site was prepared and draped using maximal sterile barrier technique including cutan eous antisepsis. Anesthesia/sedation Level of anesthesia/sedation: No sedation Anesthesia/sedation administered by: Not applicable Total intra-service sedation time (minutes): Not applicable Initial abdominal ultrasound Initial abdominal ultrasound was performed. Findings: Large ascites. Paracentesis Local anesthesia was administered. A safe window for paracentesis was identified with ultrasound. The peritoneal cavity was accessed and fluid return confirmed position. Ascites was drained. The cathete r was removed and a sterile dressing was applied. Catheter size (Fr):8 Fluid appearance: serous Volume drained (mL): 7800 Post-drainage ultrasound: Small ascites Albumin Administration Grams of albumin given intravenously: None Additional Details Additional description of procedure: None Registry event: V/3/f Device used: None Equipment details: None Specimens removed: Aspirated fluid was not sent for analysis. Estimated blood loss (mL): Less than 10 Standardized report: [email or web address] Attestation Signer name: Jose Guzman I attest that I was present for the entire procedure. I reviewed the stored images and agree with the report as written.
[2025-06-18 12:07] LABS: Glucose, Body Fluid 105.0 mg/dL (.); LD, Body Fluid 53.0 IU/L (.)
== END 2025-06-17 10:47 | disposition home or self-care (01) ==
LOC: ER 05:53
DX: K74.69 Other cirrhosis of liver (principal); R18.8 Other ascites; I10 Essential (primary) hypertension; F32.A Depression, unspecified; F41.9 Anxiety disorder, unspecified; Z98.890 Other specified postprocedural states; Z79.899 Other long term (current) drug therapy; Z87.442 Personal history of urinary calculi
CPT/HCPCS: 36415; 49083; 76942; 80053; 81001; 83605; 83880; 83986; 85025; 85610; 85730; 87205; 89051; 93005; 99285; C1729

== ENCOUNTER 2025-06-24 08:48 | Emergency (ER) | payer MEDICAID ==
[~2025-06-24] VITALS: Ht 165.1 cm; Wt 81.1 kg
[2025-06-24 08:50] VITALS: BP 106/64; PULSE 84; RESP 13; TEMP 98.1; O2SAT 100
== END 2025-06-24 09:26 | disposition left against medical advice (07) ==
LOC: ER 08:48
DX: R10.9 Unspecified abdominal pain (principal); Z53.21 Procedure and treatment not carried out due to patient leaving prior to being seen by health care provider

== ENCOUNTER 2025-06-25 06:27 | Emergency (ER) | payer MEDICAID ==
[~2025-06-25] VITALS: Ht 165.1 cm; Wt 81.4 kg
--- NOTE | 2025-06-25 06:57 | ED.PDOC ---
GI ASSESSMENT HPI Comments 54-year-old male with a history of hypertension, hyperlipidemia, and paracentesis, since the ED with a c/c of paracentesis. Patient states that he has had abdominal distension with associated pain for the past week, with no alleviating factors. Patient notes that his last paracentesis was last . And has since returned to receive another one. She denies any nausea, vomiting, diarrhea, chest pain, recent sick contacts, recent travel, or any other associated symptoms, modifiers at this time. Chief Complaint: Abdominal Pain Time Seen by MD: 06:54 Primary Care Provider: NONE Reviewed Notes: Nurses Notes, Medications, Allergies Allergies: Coded Allergies: NO KNOWN ALLERGIES (Unverified , 03/12/20) Home Meds Active Scripts Tamsulosin HCl (Tamsulosin Hydrochloride) 0.4 Mg Cap, 0.4 MG PO HS for 30 Days, #30 CAP Prov:AZAM ANGELES RESIDENT 05/13/25 Furosemide (Lasix) 40 Mg Tab, 40 MG PO DAILY for 30 Days, #30 TAB 3 Refills Prov:JN ABRAHAM MD 04/05/25 Magnesium Oxide (MAGNESIUM OXIDE) 400 Mg Tab, 400 MG OR DAILY for 30 Days, #30 TAB Prov:PORSCHE CROWE RESIDENT 07/31/24 Potassium Chloride (Potassium Chloride ER) 20 Meq Tab, 20 MEQ PO DAILY for 30 Days, #30 TAB Prov:PORSCHE CROWE RESIDENT 07/31/24 Multiple Vitamin (Multivitamins) Tab, 1 TAB PO DAILY for 90 Days, #90 TAB 0 Refills Prov:ANUJ MULLIGAN SOIL TECHNICIAN 04/06/24 Sucralfate (CARAFATE) 1 Gm Tab, 1 GM OR QID for 30 Days, #120 TAB Prov:ANUJ MULLIGAN SOIL TECHNICIAN 04/06/24 Lisinopril (Lisinopril) 20 Mg Tab, 1 TAB PO DAILYPRN for 60 Days, #60 TAB Prov:ANUJ MULLIGAN SOIL TECHNICIAN 04/06/24 Propranolol HCl (Propranolol Hydrochloride) 20 Mg Tab, 1 TAB PO BID for 60 Days, #120 TAB Prov:ANUJ MULLIGAN SOIL TECHNICIAN 04/06/24 Reported Medications Pantoprazole Sodium Sesquihydr (Pantoprazole Sodium) 40 Mg Tab, 1 TAB PO BID 04/11/25 Furosemide (Furosemide) 40 Mg Tab, 1 TAB PO DAILY 04/11/25 Cholecalciferol (VITAMIN D3) 2,000 Unit Tab, 1 TAB PO DAILY for 90 Days, #90 02/03/25 Spironolactone (Spironolactone) 25 Mg Tab, 1 TAB PO DAILY for 30 Days, #30 02/03/25 Pantoprazole Sodium Sesquihydr (Protonix) 40 Mg Tab, 1 TAB PO BID for 30 Days, #60 02/02/25 Lactulose (Lactulose) 10 Gm/15 Ml Sharon, ML PO 11/25/24 Acamprosate Calcium (ACAMPROSATE CALCIUM DR) 333 Mg Tab, 333 MG PO QID, TAB 07/31/24 Folic Acid (Folic Acid) 1 Mg Tab, 1 MG PO DAILY, TAB 07/31/24 Thiamine Hcl (VITAMIN B-1) 100 Mg Tb, 1 TAB PO DAILY for 30 Days, #30 07/31/24 Information Source: Patient Mode of Arrival: Ambulatory Timing: Weeks Duration: Since onset Prehospital treatment: None Quality: Aching Vomitus: None Stool: Normal Severity: Moderate Recent: None Recent Hx of: None Pain Location: Diffuse Modifying Factors: Exertion Associated sign and symptoms: Abdominal Pain Past Medical History PAST MEDICAL HISTORY: Anxiety, Depression, HTN, Kidney Stones, Liver Surgical History: Hernia Repair Family History Family History: Family hx of Cancer Social History Smoker: Non-Smoker Alcohol: Heavy Drugs: Denies Drug Use Lives In: Home Constitutional: denies: chills, diaphoresis, fatigue, fever, malaise, sweats, weakness, others EENTM: denies: blurred vision, double vision, ear bleeding, ear discharge, ear drainage, ear pain, ear ringing, eye pain, eye redness, hearing loss, mouth pain, mouth swelling, nasal discharge, nose bleeding, nose congestion, nose pain, photophobia, tearing, throat pain, throat swelling, voice changes, others Respiratory: denies: cough, hemoptysis, orthopnea, SOB at rest, shortness of breath, SOB with excertion, stridor, wheezing, others Cardiovascular: denies: chest pain, dizzy spells, diaphoresis, Dyspnea on exertion, edema, irregular heart beat, left arm pain, lightheadedness, pa lpitations, PND, syncope, others Gastrointestinal: reports: abdominal pain; denies: abdomen distended, blood streaked bowels, constipated, diarrhea, dysphagia, difficulty swallowing, hematemesis, melena, nausea, poor appetite, poor fluid intake, rectal bleeding, rectal pain, vomiting, others Genitourinary: denies: burning, dysuria, flank pain, frequency, hematuria, incontinence, penile discharge, penile sore, pain, testicle pain, testicle swel ling, urgency, others Neurological: denies: dizziness, fainting, headache, left sided numbness, left sided weakness, numbness, paresthesia, pre-existing deficit, right sided numbness, right sided weakness, seizure, speech problems, tingling, tremors, weakness, others Musculoskeletal: denies: back pain, gout, joint pain, joint swelling, muscle pain, muscle stiffness, neck pain, others Integumetry: denies: bruises, change in color, change in hair/nails, dryness, laceration, lesions, lumps, rash, wounds, others Allergic/Immunocompromised: denies: Difficulty Healing, Frequent Infections, Hives, Itching, others Hematologic/Lymphatic: denies: anemia, blood clots, easy bleeding, easy bruising, swollen glands, others Endocrine: denies: excessive hunger, excessive sweating, excessive thirst, excessive urination, flushing, intolerance to cold, intolerance to heat, unexplained weight gain, unexplained weight loss, others Psychiatric: denies: anxiety, bipolar disorder, depression, hopeless, panic disorder, schizophrenia, sleepless, suicidal, others All Other Systems: Reviewed and Negative Physical Exam General Appearance: Moderate Distress, Normal, Severe Distress HEENT: Normal ENT Inspection, Pharynx Normal, Scleral Icterus (L), TMs Normal Neck: Full Range of Motion, Non-Tender, Normal, Normal Inspection Respiratory: Chest Non-Tender, Lungs Clear, No Accessory Muscle Use, No R espiratory Distress, Normal Breath Sounds Cardiovascular: No Edema, No JVD, No Murmur, No Gallop, Normal Peripheral Pulses, Regular Rate/Rhythm Breast Exam: Deferred Gastrointestinal: Distended, No Organomegaly, Non Tender, No Pulsatile Mass, Normal Bowel Sounds, Soft Genitalia: Deferred Pelvic: Deferred Rectal: Deferred Extremities: No calf tenderness, Normal capillary refill, Normal inspection, Normal range of motion, Non-tender, No pedal edema Musculoskeletal : Apperance: Normal Neurologic: Alert, telecommunicator supervisor II-XII nml as Tested, No Motor Deficits, Normal Affect, Normal Mood, No Sensory Deficits Cerebellar Function: Normal Reflexes: Normal Skin: Dry, Normal Color, Warm Peripheral Pulses: 3+ Radial (R), 3+ Radial (L) Lymphatic: No Adenopathy Was a procedure done? Was a procedure done?: No GI differential Dx Differential Diagnosis: Constipation, Diverticular disease, Esophagitis, Gastritis/PUD, Gastroenteritis, Other (Paracentesis) X-Ray, Labs, Meds, VS Vital Signs Date Time Temp Pulse Resp B/P (MAP) Pulse Ox O2 Delivery O2 Flow Rate FiO2 06/25/25 06:27 98.1 78 18 119/76 100 98.1 Lab Test 06/25/25 07:12 Range/Units Prothrombin Time 12.2 H 9.3-11.8 sec Prothrombin Time INR 1.17 H 0.9-1.15 ATIENT: JIAN ROSA ACCT: [id number] UNIT: [id number] : 1970 LOC: ER ROOM / BED: / AGE / SEX: 54 / M ADM STATUS: REG ER SERVICE [id number] ORDERING PHYSICIAN: JUN BRYANT MD PROCEDURE(s): PARAC - PARACENTESIS REASON: ASCITES ORDER NUMBER(s): [id number], ACCESSION NUMBER(s): [id number] PROCEDURE: Ultrasound-guided paracentesis Procedural Personnel Attending physician(s): Jose Guzman Fellow physician(s): None Resident physician(s): None Advanced practice provider(s): None Pre-procedure diagnosis: Ascites Post-procedure diagnosis: Same Indication: ASCITES Additional clinical history: None Complications: No immediate complications. IMPRESSION: Ultrasound-guided paracentesis with drainage of 9850 mL of serous fluid. Plan: Resume care by clinical team. PROCEDURE SUMMARY: - Ultrasound-guided paracentesis - Additional procedure(s): None PROCEDURE DETAILS: Pre-procedure Consent: Informed consent for the procedure including risks, benefits and alternatives was obtained and time-out was performed prior to the procedure. Preparation: The site was prepared and draped using maximal sterile barrier technique including cutaneous antisepsis. Anesthesia/sedation Level of anesthesia/sedation: No sedation Anesthesia/sedation administered by: Not applicable Total intra-service sedation time (minutes): Not applicable Initial abdominal ultrasound Initial abdominal ultrasound was performed. Findings: Large ascites. Paracentesis Local anesthesia was administered. A safe window for paracentesis was identified with ultrasound. The peritoneal cavity was accessed and fluid return confirmed position. Ascites was drained. The catheter was removed and a sterile dressing was applied. Catheter size (Fr):8 Fluid appearance: serous Volume drained (mL): 9850 Post-drainage ultrasound: No visible ascites Albumin Administration Grams of albumin given intravenously: None Additional Details Additional description of procedure: None Registry event: V/3/f Device used: None Equipment details: None Specimens removed: Aspirated fluid was not sent for analysis. Estimated blood loss (mL): Less than 10 Standardized report: [email or web address] Attestation Signer name: Jose Guzman I attest that I was present for the entire procedure. I reviewed the stored images and agree with the report as written. Patient alert. Vitals stable. History of liver cirrhosis. Ambulating. No sign of distress. Came in for paracentesis. Reviewed his previous visit. Explained to the patient. Was told to follow up with his primary care patient. Was told to come back if there is any problem. Time of 1ST Reevaluation: 07:25 Reevaluation 1ST: Unchanged Patient Education/Counseling: Diagnosis, Treatment, Need For Follow Up Family Education/Counseling: No Family Present SEPSIS Sepsis Screen Date sepsis recognized/suspect: Jun 25, 2025 Time Sepsis recognized/suspect: 626 Recent Procedure: No On Antibiotic Therapy: No Respiratory Rate >20: No Heart Rate >90: No Temp<36 C (96.8 F) or >38.3 C: No SBP <90 or MAP <65 mmHG: No New Acute Mental Status Change: No Is the patient on CPAP, BIPAP,: No Physician Orders * Radiologist Consult (06/25/25 06:54) Paracentesis (06/25/25 09:02) Lactate Dehydrogenase (06/25/25 09:41) Protein, Body Fluid (06/25/25 09:41) Body Fluid Culture W/ Gs (06/25/25 09:41) Glucose Body Fluid (06/25/25 09:41) Body Fluid Ph (06/25/25 09:41) Gram Stain (06/25/25 09:41) Body Fluids, Diff. Cell Count (06/25/25 09:41) Vital Signs Date Time Temp Pulse Resp B/P (MAP) Pulse Ox O2 Delivery O2 Flow Rate FiO2 06/25/25 06:27 98.1 78 18 119/76 100 98.1 Departure 1 Departure Time of Disposition: 07:59 Impression: Primary Impression: Alcoholic cirrhosis of liver with ascites Disposition: HOME / SELF CARE / HOMELESS Condition: Good Discharged With: Self Critical Care Note Critical Care Time?: No Stability Stability form required: No Heart Score Heart Score: Heart Score Response (Comments) Value History N/A 0 EKG N/A 0 Age N/A 0 Risk Factors N/A 0 Troponin N/A 0 Total 0 I personally scribed for JUN BRYANT MD ([email or web address]) on 06/25/25 at 06:57. Electronically submitted by Shaun Khan ([email or web address]). I personally scribed for JUN BRYANT MD ([email or web address]) on 06/25/25 at 10:04. Electronically submitted by Shaun Khan ([email or web address]). JUN BRYANT MD Jun 25, 2025 06:57
[2025-06-25 08:05] LABS: INR 1.17 (0.9-1.15); Prothrombin Time 12.2 sec (9.3-11.8)
--- NOTE | 2025-06-25 09:53 | DVH ---
PROCEDURE: Ultrasound-guided paracentesis Procedural Personnel Attending physician(s): Jose Guzman Fellow physician(s): None Resident physician(s): None Advanced practice provider(s): None Pre-procedure diagnosis: Ascites Post-procedure diagnosis: Same Indication: ASCITES Additional clinical history: None Complications: No immediate complications. IMPRESSION: Ultrasound-guided paracentesis with drainage of 9850 mL of serous fluid. Plan: Resume care by clinical team. PROCEDURE SUMMARY: - Ultrasound-guided paracentesis - Additional procedure(s): None PROCEDURE DETAILS: Pre-procedure Consent: Informed consent for the procedure including risks, benefits and alternatives was obtained a nd time-out was performed prior to the procedure. Preparation: The site was prepared and draped using maximal sterile barrier technique including cutan eous antisepsis. Anesthesia/sedation Level of anesthesia/sedation: No sedation Anesthesia/sedation administered by: Not applicable Total intra-service sedation time (minutes): Not applicable Initial abdominal ultrasound Initial abdominal ultrasound was performed. Findings: Large ascites. Paracentesis Local anesthesia was administered. A safe window for paracentesis was identified with ultrasound. The peritoneal cavity was accessed and fluid return confirmed position. Ascites was drained. The cathete r was removed and a sterile dressing was applied. Catheter size (Fr):8 Fluid appearance: serous Volume drained (mL): 9850 Post-drainage ultrasound: No visible ascites Albumin Administration Grams of albumin given intravenously: None Additional Details Additional description of procedure: None Registry event: V/3/f Device used: None Equipment details: None Specimens removed: Aspirated fluid was not sent for analysis. Estimated blood loss (mL): Less than 10 Standardized report: [email or web address] Attestation Signer name: Jose Guzman I attest that I was present for the entire procedure. I reviewed the stored images and agree with the report as written.
[2025-06-25 10:20] VITALS: BP 102/64; PULSE 80; RESP 17; TEMP 97.6; O2SAT 100
[2025-06-25 13:43] LABS: Urine Protein, UAD Negative (Negative)
[2025-06-26 12:07] LABS: Glucose, Body Fluid 121.0 mg/dL (.); LD, Body Fluid 49.0 IU/L (.)
== END 2025-06-25 10:25 | disposition home or self-care (01) ==
LOC: ER 06:31
DX: K70.31 Alcoholic cirrhosis of liver with ascites (principal); I10 Essential (primary) hypertension; Z79.899 Other long term (current) drug therapy; Z98.890 Other specified postprocedural states
CPT/HCPCS: 36415; 49083; 76942; 81001; 83986; 85610; 87205; 89051

== ENCOUNTER 2025-07-07 06:32 | Emergency (ER) | payer MEDICAID ==
[~2025-07-07] VITALS: Ht 165.1 cm; Wt 80.0 kg
--- NOTE | 2025-07-07 06:47 | ED.PDOC ---
GI ASSESSMENT HPI Comments This is a 55 year old male presenting to the ED with chief complaint of abdominal distention. Patient reports that he has been experiencing abdominal distention due to fluid build up from his liver cirrhosis. Patient relays that he was seen 1.5 weeks ago to have a paracentesis performed. Patient requests one to be done today to have him drained. Patient denies any abdominal pain, N/V/D, fever, or chills. Chief Complaint: Abdominal Pain Time Seen by MD: 06:45 Primary Care Provider: NONE Reviewed Notes: Nurses Notes, Medications, Allergies Allergies: Coded Allergies: NO KNOWN ALLERGIES (Unverified , 03/12/20) Home Meds Active Scripts Tamsulosin HCl (Tamsulosin Hydrochloride) 0.4 Mg Cap, 0.4 MG PO HS for 30 Days, #30 CAP Prov:AZAM ANGELES RESIDENT 05/13/25 Furosemide (Lasix) 40 Mg Tab, 40 MG PO DAILY for 30 Days, #30 TAB 3 Refills Prov:JN ABRAHAM MD 04/05/25 Magnesium Oxide (MAGNESIUM OXIDE) 400 Mg Tab, 400 MG OR DAILY for 30 Days, #30 TAB Prov:PORSCHE CROWE RESIDENT 07/31/24 Potassium Chloride (Potassium Chloride ER) 20 Meq Tab, 20 MEQ PO DAILY for 30 Days, #30 TAB Prov:PORSCHE CROWE RESIDENT 07/31/24 Multiple Vitamin (Multivitamins) Tab, 1 TAB PO DAILY for 90 Days, #90 TAB 0 Refills Prov:ANUJ MULLIGAN SIPHON OPERATOR 04/06/24 Sucralfate (CARAFATE) 1 Gm Tab, 1 GM OR QID for 30 Days, #120 TAB Prov:ANUJ MULLIGAN SIPHON OPERATOR 04/06/24 Lisinopril (Lisinopril) 20 Mg Tab, 1 TAB PO DAILYPRN for 60 Days, #60 TAB Prov:ANUJ MULLIGAN SIPHON OPERATOR 04/06/24 Propranolol HCl (Propranolol Hydrochloride) 20 Mg Tab, 1 TAB PO BID for 60 Days, #120 TAB Prov:ANUJ MULLIGAN SIPHON OPERATOR 04/06/24 Reported Medications Pantoprazole Sodium Sesquihydr (Pantoprazole Sodium) 40 Mg Tab, 1 TAB PO BID 04/11/25 Furosemide (Furosemide) 40 Mg Tab, 1 TAB PO DAILY 6/8/25 Cholecalciferol (VITAMIN D3) 2,000 Unit Tab, 1 TAB PO DAILY for 90 Days, #90 02/03/25 Spironolactone (Spironolactone) 25 Mg Tab, 1 TAB PO DAILY for 30 Days, #30 02/03/25 Pantoprazole Sodium Sesquihydr (Protonix) 40 Mg Tab, 1 TAB PO BID for 30 Days, #60 02/02/25 Lactulose (Lactulose) 10 Gm/15 Ml Sharon, ML PO 11/25/24 Acamprosate Calcium (ACAMPROSATE CALCIUM DR) 333 Mg Tab, 333 MG PO QID, TAB 07/31/24 Folic Acid (Folic Acid) 1 Mg Tab, 1 MG PO DAILY, TAB 07/31/24 Thiamine Hcl (VITAMIN B-1) 100 Mg Tb, 1 TAB PO DAILY for 30 Days, #30 07/31/24 Information Source: Patient Mode of Arrival: Ambulatory Timing: Weeks Duration: Since onset Prehospital treatment: None Quality: None Vomitus: None Stool: Normal Severity: Moderate Recent: None Recent Hx of: Liver Disease Pain Location: None Modifying Factors: Nothing Past Medical History PAST MEDICAL HISTORY: Anxiety, Depression, HTN, Kidney Stones, Liver Surgical History: Hernia Repair Family History Family History: Family hx of Cancer Social History Smoker: Non-Smoker Alcohol: Heavy Drugs: Denies Drug Use Lives In: Home Constitutional: denies: chills, diaphoresis, fatigue, fever, malaise, sweats, weakness, others EENTM: denies: blurred vision, double vision, ear bleeding, ear discharge, ear drainage, ear pain, ear ringing, eye pain, eye redness, hearing loss, mouth pain, mouth swelling, nasal discharge, nose bleeding, nose congestion, nose pain, photophobia, tearing, throat pain, throat swelling, voice changes, others Respiratory: denies: cough, hemoptysis, orthopnea, SOB at rest, shortness of breath, SOB with excertion, stridor, wheezing, others Cardiovascular: denies: chest pain, dizzy spells, diaphoresis, Dyspnea on exertion, edema, irregular heart beat, left arm pain, lightheadedness, palpitations, PND, syncope, others Gastrointestinal: reports: abdomen distended; denies: abdominal pain, blood streaked bowels, constipated, diarrhea, dysphagia, difficulty swallowing, hematemesis, melena, nausea, poor appetite, poor fluid intake, rectal bleeding, rectal pain, vomiting, others Genitourinary: denies: burning, dysuria, flank pain, frequency, hematuria, incontinence, penile discharge, penile sore, pain, testicle pain, testicle swelling, urgency, others Neurological: denies: dizziness, fainting, headache, left sided numbness, left sided weakness, numbness, paresthesia, pre-existing deficit, right sided numbness, right sided weakness, seizure, speech problems, tingling, tremors, weakness, others Musculoskeletal: denies: back pain, gout, joint pain, joint swelling, muscle pain, muscle stiffness, neck pain, others Integumetry: denies: bruises, change in color, change in hair/nails, dryness, laceration, lesions, lumps, rash, wounds, others Allergic/Immunocompromised: denies: Difficulty Healing, Frequent Infections, Hives, Itching, others Hematologic/Lymphatic: denies: anemia, blood clots, easy bleeding, easy bruising, swollen glands, others Endocrine: denies: excessive hunger, excessive sweating, excessive thirst, excessive urination, flushing, intolerance to cold, intolerance to heat, unexplained weight gain, unexplained weight loss, others Psychiatric: denies: anxiety, bipolar disorder, depression, hopeless, panic disorder, schizophrenia, sleepless, suicidal, others All Other Systems: Reviewed and Negative Physical Exam General Appearance: Mild Distress, Moderate Distress, Normal HEENT: Normal ENT Inspection, PERRL/EOMI, Pharynx Normal, Scleral Icterus (L), Scleral Icterus (R), TMs Normal Neck: Full Range of Motion, Non-Tender, Normal, Normal Inspection Respiratory: Chest Non-Tender, Lungs Clear, No Accessory Muscle Use, No Respiratory Distress, Normal Breath Sounds Cardiovascular: No Edema, No JVD, No Murmur, No Gallop, Normal Peripheral Pulses, Regular Rate/Rhythm Breast Exam: Deferred Gastrointestinal: Distended, No Organomegaly, Non Tender, No Pulsatile Mass, Normal Bowel Sounds, Other (Abdomen protuberant caused by a large ascites you had a paracentesis weekly and half ago) Genitalia: Deferred Pelvic: Deferred Rectal: Deferred Extremities: No calf tenderness, Normal capillary refill, Normal inspection, Normal range of motion, Non-tender, No pedal edema Musculoskeletal : Apperance: Normal Neurologic: Alert, criminal court judge II-XII nml as Tested, No Motor Deficits, Normal Affect, Normal Mood, No Sensory Deficits Cerebellar Function: Normal Reflexes: Normal Skin: Dry, Normal Color, Warm Peripheral Pulses: 1+ carotid (R), 1+ carotid (L) Lymphatic: No Adenopathy Was a procedure done? Was a procedure done?: No GI differential Dx Differential Diagnosis: Pancreatitis, Dehydration, Electrolyte Imbalance, Hypovolemia, Malnutrition, Other (Ascites from cirrhosis) X-Ray, Labs, Meds, VS Vital Signs Date Time Temp Pulse Resp B/P (MAP) Pulse Ox O2 Delivery O2 Flow Rate FiO2 07/07/25 13:14 98.0 62 18 148/80 (102) 97 98.0 07/07/25 13:11 98.0 62 18 148/80 (102) 97 98.0 07/07/25 10:39 52 20 174/84 (114) 96 07/07/25 06:34 98.4 83 18 110/76 100 98.4 Lab Test 07/07/25 08:19 Range/Units White Blood Count 6.0 4.4-10.8 10^3/uL Red Blood Count 3.92 L 4.5-5.90 10^6/uL Hemoglobin 14.2 13.5-17.5 g/dL Hematocrit 39.7 L 41.0-53.0 % Mean Corpuscular Volume 101.2 H 80.0-100.0 fL Mean Corpuscular Hemoglobin 36.1 H 28.0-32.0 pg Mean Corpuscular Hemoglobin Concent 35.7 32.0-36.0 g/dL Red Cell Distribution Width 14.4 H 11.8-14.3 % Platelet Count 173 140-450 10^3/uL Mean Platelet Volume 6.2 L 6.9-10.8 fL Neutrophils (%) (Auto) 66.1 37.0-80.0 % Lymphocytes (%) (Auto) 16.6 10.0-50.0 % Monocytes (%) (Auto) 13.1 H 0.0-12.0 % Eosinophils (%) (Auto) 3.7 0.0-7.0 % Basophils (%) (Auto) 0.5 0.0-2.0 % Neutrophils # (Auto) 4.0 1.6-8.6 10 ^3/uL Lymphocytes # (Auto) 1.0 0.4-5.4 10 ^3/uL Monocytes # (Auto) 0.8 0-1.3 10 ^3/uL Eosinophils # (Auto) 0.2 0-0.8 10 ^3/uL Basophils # (Auto) 0 0-0.2 10 ^3/uL Nucleated Red Blood Cells 0.0 % Prothrombin Time 12.0 H 9.3-11.8 sec Prothrombin Time INR 1.15 0.9-1.15 Activated Partial Thromboplast Time 26.9 24.5-34.5 SEC Sodium Level 133 L 136-145 mmol/L Potassium Level 5.4 H 3.5-5.1 mmol/L Chloride Level 105 98-107 mmol/L Carbon Dioxide Level 19 L 20-31 mmol/L Anion Gap 9 5-15 Blood Urea Nitrogen 17 9-23 mg/dL Creatinine 1.55 H 0.700-1.30 mg/dL Glomerular Filtration Rate Calc 53 >90 mL/min BUN/Creatinine Ratio 11.0 10.0-20.0 Serum Glucose 113 H 74-106 mg/dL Calcium Level 8.8 8.7-10.4 mg/dL Magnesium Level 1.7 1.6-2.6 mg/dL Total Bilirubin 3.1 H 0.2-1.0 mg/dL Aspartate Amino Transferase (AST) 59 H 13-40 U/L Alanine Aminotransferase (ALT) 28 7-40 U/L Alkaline Phosphatase 116 46-116 U/L Total Protein 7.3 5.7-8.2 g/dL Albumin 2.9 L 3.2-4.8 g/dL Lipase 54 H 12-53 U/L [place] [id number] Ph: [phone] DIAGNOSTIC IMAGING Diagnostic Imaging Report : [id number] Signed PATIENT: JIAN ROSA ACCT: [id number] UNIT: [id number] : 1970 LOC: ER ROOM / BED: / AGE / SEX: 55 / M ADM STATUS: REG ER SERVICE 0922 ORDERING PHYSICIAN: LACIE MATTHEW MD PROCEDURE(s): ABDL - ABDOMEN LIMITED REASON: fluid check eval for para ORDER NUMBER(s): [id number], ACCESSION NUMBER(s): [id number] ULTRASOUND ABDOMEN limited, 4 QUADRANTS INDICATION: fluid check eval for para Evaluate for ascites. TECHNIQUE: The four quadrants of the abdomen were scanned in haywood-scale to assess for the presence of ascites. No solid organ assessment was performed. FINDINGS: Large volume ascites. IMPRESSIONS: 1. Large volume ascites. ATED BY: CHENG STATON MD DICTATED DATE/TIME: 07/07/25948 SIGNED BY: CHENG STATON MD SIGNED DATE/TIME: 07/07/25948 CC: X-Ray, Labs, Meds, VS Comment Course in the emergency department eventful patient came in with a large ascites you will be drained soon CBC is negative with the microcytosis INR is 1.15 CMP is negative except for GFR of 53 Magnesium 1.7 Total bilirubin 3.1 Albumin 2.9 Lipase 54 The ultrasound shows a large volume ascites Patient will be drain soon and will be discharged home to follow up with his PCP Images Reviewed?: Images reviewed and evaluated by me Time of 1ST Reevaluation: 07:45 Reevaluation 1ST: Improved Patient Education/Counseling: Diagnosis, Treatment Family Education/Counseling: No Family Present SEPSIS Sepsis Screen Date sepsis recognized/suspect: Jul 07, 2025 Time Sepsis recognized/suspect: 635 Recent Procedure: No On Antibiotic Therapy: No Respiratory Rate >20: No Heart Rate >90: No Temp<36 C (96.8 F) or >38.3 C: No SBP <90 or MAP <65 mmHG: No New Acute Mental Status Change: No Is the patient on CPAP, BIPAP,: No Physician Orders Heplock Iv (07/07/25 06:44) Paracentesis (07/07/25 06:44) * Radiologist Consult (07/07/25 09:15) Abdomen Limited (07/07/25 09:22) Vital Signs Date Time Temp Pulse Resp B/P (MAP) Pulse Ox O2 Delivery O2 Flow Rate FiO2 07/07/25 13:14 98.0 62 18 148/80 (102) 97 98.0 07/07/25 13:11 98.0 62 18 148/80 (102) 97 98.0 07/07/25 10:39 52 20 174/84 (114) 96 07/07/25 06:34 98.4 83 18 110/76 100 98.4 Laboratory Tests Test 07/07/25 08:19 White Blood Count 6.0 10^3/uL (4.4-10.8) Departure 1 Departure Time of Disposition: 12:11 Impression: Primary Impression: Alcoholic cirrhosis of liver with ascites Additional Impressions: Macrocytosis without anemia CKD (chronic kidney disease) stage 3, GFR 30-59 ml/min Severe malnutrition Hyperbilirubinemia Disposition: LEFT AGAINST MEDICAL ADVICE Condition: Fair Discharged With: Self Critical Care Note Critical Care Time?: No Stability Stability form required: No Heart Score Heart Score: Heart Score Response (Comments) Value History N/A 0 EKG N/A 0 Age N/A 0 Risk Factors N/A 0 Troponin N/A 0 Total 0 I personally scribed for LACIE MATTHEW MD ([email or web address]) on 07/07/25 at 06:47. Electronically submitted by Raj Fuentes ([email or web address]). I personally scribed for LACIE MATTHEW MD ([email or web address]) on 07/07/25 at 09:54. Electronically submitted by Raj Fuentes ([email or web address]). LACIE MATTHEW MD Jul 07, 2025 06:47
[2025-07-07 08:31] LABS: Hematocrit 39.7 % (41.0-53.0); Hemoglobin 14.2 g/dL (13.5-17.5); Mean Corpuscular Hemoglobin 36.1 pg (28.0-32.0); Mean Corpuscular Volume 101.2 fL (80.0-100.0); Nucleated Red Blood Cells % 0.0 %
[2025-07-07 08:54] LABS: Alanine Aminotransferase 28 U/L (7-40); Anion Gap 9 (5-15); BUN/Creatinine Ratio 11.0 (10.0-20.0); Blood Urea Nitrogen 17 mg/dL (9-23); Calcium 8.8 mg/dL (8.7-10.4); Chloride 105 mmol/L (98-107); Magnesium 1.7 mg/dL (1.6-2.6); Total Protein 7.3 g/dL (5.7-8.2)
[2025-07-07 08:55] LABS: Albumin 2.9 g/dL (3.2-4.8); Alkaline Phosphatase 116 U/L (46-116); Carbon Dioxide 19 mmol/L (20-31); Glucose 113 mg/dL (74-106); Lipase 54 U/L (12-53); Potassium 5.4 mmol/L (3.5-5.1); Sodium 133 mmol/L (136-145)
[2025-07-07 09:03] LABS: Bilirubin, Total 3.1 mg/dL (0.2-1.0)
--- NOTE | 2025-07-07 09:52 | DVH ---
ULTRASOUND ABDOMEN limited, 4 QUADRANTS INDICATION: fluid check eval for para Evaluate for ascites. TECHNIQUE: The four quadrants of the abdomen were scanned in haywood-scale to assess for the presence of ascites. N o solid organ assessment was performed. FINDINGS: Large volume ascites. IMPRESSIONS: 1. Large volume ascites.
[2025-07-07 09:56] LABS: INR 1.15 (0.9-1.15); Partial Thromboplastin Time 26.9 SEC (24.5-34.5); Prothrombin Time 12.0 sec (9.3-11.8)
[2025-07-07 13:14] VITALS: BP 148/80; PULSE 62; RESP 18; TEMP 98; O2SAT 97
== END 2025-07-07 13:13 | disposition left against medical advice (07) ==
LOC: ER 06:32
DX: K70.31 Alcoholic cirrhosis of liver with ascites (principal); I12.9 Hypertensive chronic kidney disease with stage 1 through stage 4 chronic kidney disease, or unspecified chronic kidney disease; N18.30 Chronic kidney disease, stage 3 unspecified; E80.6 Other disorders of bilirubin metabolism; D75.89 Other specified diseases of blood and blood-forming organs; E80.7 Disorder of bilirubin metabolism, unspecified; F41.9 Anxiety disorder, unspecified; F32.A Depression, unspecified; F10.90 Alcohol use, unspecified, uncomplicated; Z98.890 Other specified postprocedural states; Z87.442 Personal history of urinary calculi; Z79.899 Other long term (current) drug therapy; Y90.9 Presence of alcohol in blood, level not specified
CPT/HCPCS: 36415; 76705; 80053; 83690; 83735; 85025; 85610; 85730

== ENCOUNTER 2025-07-08 07:42 | Inpatient (IN) | payer MEDICAID ==
[~2025-07-08] VITALS: Ht 165.1 cm; Wt 81.6 kg
--- NOTE | 2025-07-08 08:11 | ED.PDOC ---
GI ASSESSMENT HPI Comments This is a 55 year old male presenting to the ED with chief complaint of abdominal distention. Patient reports that he has been experiencing a worsened distended abdomen for the past 4 days due to history of liver cirrhosis. Patient relays that he is here today to have a paracentesis performed, with his last being 1.5 weeks ago. Patient notes he was seen yesterday, but decided to leave after waiting too long. Patient denies any N/V/D, abdominal pain, dizziness, fever, or chills. Chief Complaint: Abdominal Pain Time Seen by MD: 07:52 Primary Care Provider: NONE Reviewed Notes: Nurses Notes, Medications, Allergies Allergies: Coded Allergies: NO KNOWN ALLERGIES (Unverified , 03/12/20) Home Meds Active Scripts Tamsulosin HCl (Tamsulosin Hydrochloride) 0.4 Mg Cap, 0.4 MG PO HS for 30 Days, #30 CAP Prov:AZAM ANGELES RESIDENT 05/13/25 Furosemide (Lasix) 40 Mg Tab, 40 MG PO DAILY for 30 Days, #30 TAB 3 Refills Prov:JN ABRAHAM MD 04/05/25 Magnesium Oxide (MAGNESIUM OXIDE) 400 Mg Tab, 400 MG OR DAILY for 30 Days, #30 TAB Prov:PORSCHE CROWE RESIDENT 07/31/24 Potassium Chloride (Potassium Chloride ER) 20 Meq Tab, 20 MEQ PO DAILY for 30 Days, #30 TAB Prov:PORSCHE CROWE RESIDENT 07/31/24 Multiple Vitamin (Multivitamins) Tab, 1 TAB PO DAILY for 90 Days, #90 TAB 0 Refills Prov:ANUJ MULLIGAN STUDIO OPERATOR 04/06/24 Sucralfate (CARAFATE) 1 Gm Tab, 1 GM OR QID for 30 Days, #120 TAB Prov:ANUJ MULLIGAN STUDIO OPERATOR 04/06/24 Lisinopril (Lisinopril) 20 Mg Tab, 1 TAB PO DAILYPRN for 60 Days, #60 TAB Prov:ANUJ MULLIGAN STUDIO OPERATOR 04/06/24 Propranolol HCl (Propranolol Hydrochloride) 20 Mg Tab, 1 TAB PO BID for 60 Days, #120 TAB Prov:ANUJ MULLIGAN STUDIO OPERATOR 04/06/24 Reported Medications Pantoprazole Sodium Sesquihydr (Pantoprazole Sodium) 40 Mg Tab, 1 TAB PO BID 04/11/25 Furosemide (Furosemide) 40 Mg Tab, 1 TAB PO DAILY 04/11/25 Cholecalciferol (VITAMIN D3) 2,000 Unit Tab, 1 TAB PO DAILY for 90 Days, #90 02/03/25 Spironolactone (Spironolactone) 25 Mg Tab, 1 TAB PO DAILY for 30 Days, #30 02/03/25 Pantoprazole Sodium Sesquihydr (Protonix) 40 Mg Tab, 1 TAB PO BID for 30 Days, #60 02/02/25 Lactulose (Lactulose) 10 Gm/15 Ml Sharon, ML PO 11/25/24 Acamprosate Calcium (ACAMPROSATE CALCIUM DR) 333 Mg Tab, 333 MG PO QID, TAB 07/31/24 Folic Acid (Folic Acid) 1 Mg Tab, 1 MG PO DAILY, TAB 07/31/24 Thiamine Hcl (VITAMIN B-1) 100 Mg Tb, 1 TAB PO DAILY for 30 Days, #30 07/31/24 Information Source: Patient Mode of Arrival: Ambulatory Timing: Days Duration: Since onset Prehospital treatment: None Quality: None Vomitus: None Stool: Normal Severity: Moderate Recent: None Recent Hx of: Liver Disease Past Medical History PAST MEDICAL HISTORY: Anxiety, Depression, HTN, Kidney Stones, Liver Surgical History: Hernia Repair Family History Family History: Reviewed,noncontributory to illness, Family hx of Cancer Social History Smoker: Non-Smoker Alcohol: Heavy, Sober Drugs: Denies Drug Use Lives In: Home Constitutional: denies: chills, diaphoresis, fatigue, fever, malaise, sweats, weakness, others EENTM: denies: blurred vision, double vision, ear bleeding, ear discharge, ear drainage, ear pain, ear ringing, eye pain, eye redness, hearing loss, mouth pain, mouth swelling, nasal discharge, nose bleeding, nose congestion, nose whitney n, photophobia, tearing, throat pain, throat swelling, voice changes, others Respiratory: denies: cough, hemoptysis, orthopnea, SOB at rest, shortness of breath, SOB with excertion, stridor, wheezing, others Cardiovascular: denies: chest pain, dizzy spells, diaphoresis, Dyspnea on exertion, edema, irregular heart beat, left arm pain, lightheadedness, palpitations, PND, syncope, others Gastrointestinal: reports: abdomen distended; denies: abdominal pain, blood streaked bowels, constipated, diarrhea, dysphagia, difficulty swallowing, hematemesis, melena, nausea, poor appetite, poor fluid intake, rectal bleeding, rectal pain, vomiting, others Genitourinary: denies: burning, dysuria, flank pain, frequency, hematuria, incontinence, penile discharge, penile sore, pain, testicle pain, testicle swelling, urgency, others Neurological: denies: dizziness, fainting, headache, left sided numbness, left sided weakness, numbness, paresthesia, pre-existing deficit, right sided numbness, right sided weakness, seizure, speech problems, tingling, tremors, weakness, others Musculoskeletal: denies: back pain, gout, joint pain, joint swelling, muscle pain, muscle stiffness, neck pain, others Integumetry: denies: bruises, change in color, change in hair/nails, dryness, laceration, lesions, lumps, rash, wounds, others Allergic/Immunocompromised: denies: Difficulty Healing, Frequent Infections, Hives, Itching, others Hematologic/Lymphatic: denies: anemia, blood clots, easy bleeding, easy bruising, swollen glands, others Endocrine: denies: excessive hunger, excessive sweating, excessive thirst, excessive urination, flushing, intolerance to cold, intolerance to heat, unexplained weight gain, unexplained weight loss, others Psychiatric: denies: anxiety, bipolar disorder, depression, hopeless, panic disorder, schizophrenia, sleepless, suicidal, others All Other Systems: Reviewed and Negative Physical Exam General Appearance: No Apparent Distress, Normal HEENT: Normal ENT Inspection, Pharynx Normal, TMs Normal Neck: Full Range of Motion, Non-Tender, Normal, Normal Inspection Respiratory: Chest Non-Tender, Lungs Clear, No Accessory Muscle Use, No Respiratory Distress, Normal Breath Sounds Cardiovascular: No Edema, No JVD, No Murmur, No Gallop, Normal Peripheral Pulses, Regular Rate/Rhythm Breast Exam: Deferred Gastrointestinal: Distended, No Organomegaly, Non Tender, No Pulsatile Mass, Normal Bowel Sounds Genitalia: Deferred Pelvic: Deferred Rectal: Deferred Extremities: No calf tenderness, Normal capillary refill, Normal inspection, Normal range of motion, Non-tender, No pedal edema Musculoskeletal : Apperance: Normal Neurologic: Alert, brim flexer II-XII nml as Tested, No Motor Deficits, Normal Affect, Normal Mood, No Sensory Deficits Cerebellar Function: Normal Reflexes: Normal Skin: Dry, Normal Color, Warm Lymphatic: No Adenopathy Was a procedure done? Was a procedure done?: No GI differential Dx Differential Diagnosis: Gastritis/PUD, Gastroenteritis, UTI, Urolithiasis, Dehydration, Electrolyte Imbalance, Food Poisoning X-Ray, Labs, Meds, VS Vital Signs Date Time Temp Pulse Resp B/P (MAP) Pulse Ox O2 Delivery O2 Flow Rate FiO2 07/08/25 09:00 98.3 79 18 99/71 (80) 100 98.3 07/08/25 09:00 18 18 100 Room Air* 0 21 07/08/25 07:52 81 07/08/25 07:43 97.9 82 18 122/64 100 97.9 Lab Test 07/08/25 10:10 07/08/25 08:46 Range/Units Body Fluid Source Pending Body Fluid pH Pending Body Fluid WBC (Manual) Pending Body Fluid RBC (Manual) Pending Body Fluid Mononuclear Cells Pending Body Fluid Polymorphonuclear Cells Pending Body Fluid Glucose Pending Body Fluid Total Protein Pending Body Fluid Lactate Dehydrogenase Pending White Blood Count 5.4 4.4-10.8 10^3/uL Red Blood Count 3.42 L 4.5-5.90 10^6/uL Hemoglobin 12.3 L 13.5-17.5 g/dL Hematocrit 34.6 #L 41.0-53.0 % Mean Corpuscular Volume 101.2 H 80.0-100.0 fL Mean Corpuscular Hemoglobin 36.1 H 28.0-32.0 pg Mean Corpuscular Hemoglobin Concent 35.6 32.0-36.0 g/dL Red Cell Distribution Width 14.7 H 11.8-14.3 % Platelet Count 143 140-450 10^3/uL Mean Platelet Volume 6.2 L 6.9-10.8 fL Neutrophils (%) (Auto) 63.4 37.0-80.0 % Lymphocytes (%) (Auto) 15.3 10.0-50.0 % Monocytes (%) (Auto) 16.4 H 0.0-12.0 % Eosinophils (%) (Auto) 4.2 0.0-7.0 % Basophils (%) (Auto) 0.7 0.0-2.0 % Neutrophils # (Auto) 3.5 1.6-8.6 10 ^3/uL Lymphocytes # (Auto) 0.8 0.4-5.4 10 ^3/uL Monocytes # (Auto) 0.9 0-1.3 10 ^3/uL Eosinophils # (Auto) 0.2 0-0.8 10 ^3/uL Basophils # (Auto) 0 0-0.2 10 ^3/uL Nucleated Red Blood Cells 0.1 % Prothrombin Time 12.3 H 9.3-11.8 sec Prothrombin Time INR 1.18 H 0.9-1.15 Activated Partial Thromboplast Time 27.6 24.5-34.5 SEC Sodium Level 131 L 136-145 mmol/L Potassium Level 3.8 3.5-5.1 mmol/L Chloride Level 102 98-107 mmol/L Carbon Dioxide Level 21 20-31 mmol/L Anion Gap 8 5-15 Blood Urea Nitrogen 21 9-23 mg/dL Creatinine 1.60 H 0.700-1.30 mg/dL Glomerular Filtration Rate Calc 51 >90 mL/min BUN/Creatinine Ratio 13.1 10.0-20.0 Serum Glucose 116 H 74-106 mg/dL Calcium Level 8.3 L 8.7-10.4 mg/dL Total Bilirubin 2.2 H 0.2-1.0 mg/dL Aspartate Amino Transferase (AST) 47 H 13-40 U/L Alanine Aminotransferase (ALT) 24 7-40 U/L Alkaline Phosphatase 113 46-116 U/L Total Protein 6.5 5.7-8.2 g/dL Albumin 2.6 L 3.2-4.8 g/dL Current Medications Medications (Trade) Dose Ordered Sig/Adama Route Start Time Stop Time Status Last Admin Albumin Human 50 ml @ 200 mls/hr ONCE ONCE IV 07/08/25 10:15 07/08/25 10:29 DC 07/08/25 10:35 Time of 1ST Reevaluation: 08:52 Reevaluation 1ST: Unchanged Patient Education/Counseling: Diagnosis, Treatment Family Education/Counseling: No Family Present SEPSIS Sepsis Screen Date sepsis recognized/suspect: Jul 08, 2025 Time Sepsis recognized/suspect: 0744 Recent Procedure: No On Antibiotic Therapy: No Respiratory Rate >20: No Heart Rate >90: No Temp<36 C (96.8 F) or >38.3 C: No SBP <90 or MAP <65 mmHG: No New Acute Mental Status Change: No Is the patient on CPAP, BIPAP,: No Physician Orders Electrocardigram (07/08/25 08:05) Paracentesis (07/08/25 08:06) Lactate Dehydrogenase, Fluid (07/08/25 10:28) Protein, Body Fluid (07/08/25 10:28) Body Fluid Culture W/ Gs (07/08/25 10:28) Glucose Body Fluid (07/08/25 10:28) Body Fluid Ph (07/08/25 10:28) Body Fluids, Diff. Cell Count (07/08/25 10:28) Vital Signs Date Time Temp Pulse Resp B/P (MAP) Pulse Ox O2 Delivery O2 Flow Rate FiO2 07/08/25 09:00 98.3 79 18 99/71 (80) 100 98.3 07/08/25 09:00 18 18 100 Room Air* 0 21 07/08/25 07:52 81 07/08/25 07:43 97.9 82 18 122/64 100 97.9 Laboratory Tests Test 07/08/25 08:46 White Blood Count 5.4 10^3/uL (4.4-10.8) Medications Medications Dose Ordered Sig/Adama Route Start Time Stop Time Status Last Admin Dose Admin Albumin Human 50 ml @ 200 mls/hr ONCE ONCE IV 07/08/25 10:15 07/08/25 10:29 DC 07/08/25 10:35 Departure 1 Departure Time of Disposition: 11:52 (Patient presented with abdominal pain that was concerning for possible appendicits, gastritis, cholecystitis, colitis, gastroenteritis, sbo, or orther possible surgical emergency. Data: 1. I ordered and reviewed the result of at least 3 labs including a CBC, BMP, and Urinalysis. 2. Patient is signed out AMA prior to workup completion.) Impression: Primary Impression: Abdominal ascites Qualified Codes: R18.8 - Other ascites Additional Impression: Intractable abdominal pain Disposition: ADMITTED INPATIENT Admit to: Med Surg Condition: Serious Critical Care Note Critical Care Time?: No Stability Stability form required: No Heart Score Heart Score: Heart Score Response (Comments) Value History N/A 0 EKG N/A 0 Age N/A 0 Risk Factors N/A 0 Troponin N/A 0 Total 0 I personally scribed for DM CHERRY MD ([email or web address]) on 07/08/25 at 08:11. Electronically submitted by Raj Fuentes [email or web address]). DM CHERRY MD Jul 08, 2025 08:11
[2025-07-08 09:00] VITALS: BP 99/71; PULSE 18; RESP 18; TEMP 98.3; O2SAT 100
[2025-07-08 09:01] LABS: Hematocrit 34.6 % (41.0-53.0); Hemoglobin 12.3 g/dL (13.5-17.5); Mean Corpuscular Hemoglobin 36.1 pg (28.0-32.0); Mean Corpuscular Volume 101.2 fL (80.0-100.0); Nucleated Red Blood Cells % 0.1 %
[2025-07-08 09:16] LABS: INR 1.18 (0.9-1.15); Partial Thromboplastin Time 27.6 SEC (24.5-34.5); Prothrombin Time 12.3 sec (9.3-11.8)
[2025-07-08 09:19] LABS: Alanine Aminotransferase 24 U/L (7-40); Albumin 2.6 g/dL (3.2-4.8); Alkaline Phosphatase 113 U/L (46-116); Anion Gap 8 (5-15); BUN/Creatinine Ratio 13.1 (10.0-20.0); Bilirubin, Total 2.2 mg/dL (0.2-1.0); Blood Urea Nitrogen 21 mg/dL (9-23); Calcium 8.3 mg/dL (8.7-10.4); Carbon Dioxide 21 mmol/L (20-31); Chloride 102 mmol/L (98-107); Glucose 116 mg/dL (74-106); Potassium 3.8 mmol/L (3.5-5.1); Sodium 131 mmol/L (136-145); Total Protein 6.5 g/dL (5.7-8.2)
[2025-07-08] MEDS: ALBUMIN 5% 50 ML IV ONE (10:35)
[2025-07-08] MEDS ORDERED: ONDANSETRON HCL 4 MG/2 ML VIAL IV PRN (11:00)
[2025-07-08] MEDS ORDERED: ACETAMINOPHEN 325 MG TAB PO PRN (11:00)
[2025-07-08] MEDS ORDERED: NITROGLYCERIN 0.4 MG SL TAB SL PRN (11:00)
[2025-07-08] MEDS ORDERED: HYDROcodone-ACET 5/325MG TAB PO PRN (11:00)
[2025-07-08] MEDS ORDERED: MORPHINE SULFATE INJ 2 MG/ml SYRG IV PRN ×2 (11:00)
--- NOTE | 2025-07-08 11:05 | DVHHP2 ---
History of Present Illness Reason for Visit: Abdominal distention History of Present Illness Yang Martin is a 55-year-old male with past medical history of anxiety, depression, hypertension, kidney stones, hernia repair, and liver cirrhosis who presents to the ED with abdominal pain with a distention. Patient reports that he comes in every 2 weeks to have his abdomen drained. He also reports that he stopped drinking 3 weeks ago. Patient denies any chest pain, shortness of breath, fever, chills, lightheadedness, weakness, dizziness, nausea vomiting, diarrhea, or urinary symptoms. Cardiovascular: HTN Hepatobiliary: Cirrhosis Psych: Anxiety, Depression Past Medical History Nephrolithiasis Past Surgical History: Hernia Repair Family History: Cancer, Other (Mom with abdominal cancer) Smoke: No ALCOHOL: none (Quit 3 weeks ago) Drugs: None Lives: with Family Domestic Violence: Neg Review of Systems Gastrointestinal: Abdominal Pain, Other (Distention) Allergies: Coded Allergies: NO KNOWN ALLERGIES (Unverified , 03/12/20) Exam Vital Signs Vital Signs Date Time Temp Pulse Resp B/P (MAP) Pulse Ox O2 Delivery O2 Flow Rate FiO2 07/08/25 09:00 98.3 79 18 99/71 (80) 100 98.3 07/08/25 09:00 Room Air* 0 21 General Appearance: Alert, Oriented X3, Cooperative, No acute distress HEENT: Atraumatic, PERRLA, EOMI Respiratory: Clear to auscultation, Normal air movement Cardiovascular: Regular rate, Normal S1, Normal S2, No murmurs Abdominal: Soft Extremities: No clubbing, No cyanosis, Normal pulses Skin: No significant lesion Neuro: Normal gait, Normal speech, Strength at 5/5 X4 ext, Normal tone, Sensation intact Psych/Mental Status: Mental status NL, Mood NL Labs/Xrays Labs Test 07/08/25 08:46 Range/Units White Blood Count 5.4 4.4-10.8 10^3/uL Red Blood Count 3.42 L 4.5-5.90 10^6/uL Hemoglobin 12.3 L 13.5-17.5 g/dL Hematocrit 34.6 #L 41.0-53.0 % Mean Corpuscular Volume 101.2 H 80.0-100.0 fL Mean Corpuscular Hemoglobin 36.1 H 28.0-32.0 pg Mean Corpuscular Hemoglobin Concent 35.6 32.0-36.0 g/dL Red Cell Distribution Width 14.7 H 11.8-14.3 % Platelet Count 143 140-450 10^3/uL Mean Platelet Volume 6.2 L 6.9-10.8 fL Neutrophils (%) (Auto) 63.4 37.0-80.0 % Lymphocytes (%) (Auto) 15.3 10.0-50.0 % Monocytes (%) (Auto) 16.4 H 0.0-12.0 % Eosinophils (%) (Auto) 4.2 0.0-7.0 % Basophils (%) (Auto) 0.7 0.0-2.0 % Neutrophils # (Auto) 3.5 1.6-8.6 10 ^3/uL Lymphocytes # (Auto) 0.8 0.4-5.4 10 ^3/uL Monocytes # (Auto) 0.9 0-1.3 10 ^3/uL Eosinophils # (Auto) 0.2 0-0.8 10 ^3/uL Basophils # (Auto) 0 0-0.2 10 ^3/uL Nucleated Red Blood Cells 0.1 % Prothrombin Time 12.3 H 9.3-11.8 sec Prothrombin Time INR 1.18 H 0.9-1.15 Activated Partial Thromboplast Time 27.6 24.5-34.5 SEC Sodium Level 131 L 136-145 mmol/L Potassium Level 3.8 3.5-5.1 mmol/L Chloride Level 102 98-107 mmol/L Carbon Dioxide Level 21 20-31 mmol/L Anion Gap 8 5-15 Blood Urea Nitrogen 21 9-23 mg/dL Creatinine 1.60 H 0.700-1.30 mg/dL Glomerular Filtration Rate Calc 51 >90 mL/min BUN/Creatinine Ratio 13.1 10.0-20.0 Serum Glucose 116 H 74-106 mg/dL Calcium Level 8.3 L 8.7-10.4 mg/dL Total Bilirubin 2.2 H 0.2-1.0 mg/dL Aspartate Amino Transferase (AST) 47 H 13-40 U/L Alanine Aminotransferase (ALT) 24 7-40 U/L Alkaline Phosphatase 113 46-116 U/L Total Protein 6.5 5.7-8.2 g/dL Albumin 2.6 L 3.2-4.8 g/dL SEPSIS Sepsis Screen Date sepsis recognized/suspect: Jul 08, 2025 Time Sepsis recognized/suspect: 0744 Recent Procedure: No On Antibiotic Therapy: No Respiratory Rate >20: No Heart Rate >90: No Temp<36 C (96.8 F) or >38.3 C: No SBP <90 or MAP <65 mmHG: No New Acute Mental Status Change: No Is the patient on CPAP, BIPAP,: No Physician Orders Electrocardigram (07/08/25 08:05) Paracentesis (07/08/25 08:06) Lactate Dehydrogenase, Fluid (07/08/25 10:28) Protein, Body Fluid (07/08/25 10:28) Body Fluid Culture W/ Gs (07/08/25 10:28) Glucose Body Fluid (07/08/25 10:28) Body Fluid Ph (07/08/25 10:28) Gram Stain (07/08/25 10:28) Body Fluids, Diff. Cell Count (07/08/25 10:28) Vital Signs Date Time Temp Pulse Resp B/P (MAP) Pulse Ox O2 Delivery O2 Flow Rate FiO2 07/08/25 09:00 98.3 79 18 99/71 (80) 100 98.3 07/08/25 09:00 18 18 100 Room Air* 0 21 07/08/25 07:52 81 07/08/25 07:43 97.9 82 18 122/64 100 97.9 Laboratory Tests Test 07/08/25 08:46 White Blood Count 5.4 10^3/uL (4.4-10.8) Medications Medications Dose Ordered Sig/Adama Route Start Time Stop Time Status Last Admin Dose Admin Albumin Human 50 ml @ 200 mls/hr ONCE ONCE IV 07/08/25 10:15 07/08/25 10:29 DC 07/08/25 10:35 200 MLS/HR Assessment/Plan Assessment/Plan Assessment Intractable abdominal pain likely due to ascites Hyperbilirubinemia likely due to alcohol use Hyponatremia NIESHA likely due to ATN History of anxiety History of depression History of hypertension History of kidney stones History of hernia repair History of liver cirrhosis Assessment Admit to med surge Paracentesis -IR IV antibiotics-ceftriaxone Antiemetics Pain management Albumin Body fluids LDH PT/PTT EKG Diet Home medications reconciled DVT prophylaxis-SCDs PUD prophylaxis-PPIs Discussed plan of care with patient and nurse Counseled patient on cessation of alcohol use [id number] Preventive counseling healthy eating habits, physical activity, and regular checkups Patient wants to leave AMA and discussed risks and benefits with him still insists Plan discussed with: Patient Date of Service: Jul 08, 2025 Billing Provider: CAMILO PARSONS Common Visit Codes: 44013-RMQYKTM INP/OBS CARE (HIGH) Secondary Visit Codes: 24391-[id number] COUNSELING IND CAMILO PARSONS Jul 08, 2025 11:05
--- NOTE | 2025-07-08 11:54 | DVH ---
PROCEDURE: Ultrasound-guided paracentesis Procedural Personnel Attending physician(s): Jose Guzman Fellow physician(s): None Resident physician(s): None Advanced practice provider(s): None Pre-procedure diagnosis: Ascites Post-procedure diagnosis: Same Indication: ascites Additional clinical history: None Complications: No immediate complications. IMPRESSION: Ultrasound-guided paracentesis with drainage of 9600 mL of serous fluid. Plan: Resume care by clinical team. PROCEDURE SUMMARY: - Ultrasound-guided paracentesis - Additional procedure(s): None PROCEDURE DETAILS: Pre-procedure Consent: Informed consent for the procedure including risks, benefits and alternatives was obtained a nd time-out was performed prior to the procedure. Preparation: The site was prepared and draped using maximal sterile barrier technique including cutan eous antisepsis. Anesthesia/sedation Level of anesthesia/sedation: No sedation Anesthesia/sedation administered by: Not applicable Total intra-service sedation time (minutes): Not applicable Initial abdominal ultrasound Initial abdominal ultrasound was performed. Findings: Large ascites. Paracentesis Local anesthesia was administered. A safe window for paracentesis was identified with ultrasound. The peritoneal cavity was accessed and fluid return confirmed position. Ascites was drained. The cathete r was removed and a sterile dressing was applied. Catheter size (Fr):8 Fluid appearance: serous Volume drained (mL): 9600 Post-drainage ultrasound: Not performed Albumin Administration Grams of albumin given intravenously: None Additional Details Additional description of procedure: None Registry event: V/3/f Device used: None Equipment details: None Specimens removed: Aspirated fluid was not sent for analysis. Estimated blood loss (mL): Less than 10 Standardized report: [email or web address] Attestation Signer name: Jose Guzman I attest that I was present for the entire procedure. I reviewed the stored images and agree with the report as written.
[2025-07-08] MEDS ORDERED: SUCRALFATE 1 GM TAB PO SCH (12:00)
[2025-07-08] MEDS ORDERED: ACAMPROSATE CALCIUM 333 MG PO SCH (12:00)
[2025-07-08] MEDS ORDERED: PROPRANOLOL HCL 20 MG TAB PO SCH (22:00)
[2025-07-08] MEDS ORDERED: TAMSULOSIN HYDROCHLORIDE 0.4 MG CAP PO SCH (22:00)
[2025-07-08] MEDS ORDERED: PANTOPRAZOLE 40 MG TAB PO SCH (22:00)
[2025-07-09] MEDS ORDERED: THIAMINE HCL 100 MG TAB PO SCH (10:00)
[2025-07-09] MEDS ORDERED: FUROSEMIDE 40 MG TAB PO SCH (10:00)
[2025-07-09] MEDS ORDERED: PATIENTS OWN MEDICATION (Folic Acid 1 MG) PO SCH (10:00)
[2025-07-09] MEDS ORDERED: SPIRONOLACTONE 25 MG TAB PO SCH (10:00)
[2025-07-09] MEDS ORDERED: PATIENTS OWN MEDICATION (Magnesium Oxide 400 MG) OR SCH (10:00)
[2025-07-09] MEDS ORDERED: PATIENTS OWN MEDICATION (Cholecalciferol (Vitamin D3) 1 TAB) PO SCH (10:00)
[2025-07-09] MEDS ORDERED: MULTIPLE VITAMIN TAB PO SCH (10:00)
[2025-07-09] MEDS ORDERED: LACTULOSE 20Gm/30ML SOLN PO SCH (10:00)
--- NOTE | 2025-07-09 11:33 | ECG ---
[facility] Test Date: 2025-07-08 Test Time: 07:52:28 Pat Name: JIAN GOULD Department: ED Room: [address] [place] [address] Gender: M Dedicated Regional Driver: srini : 1970 Requested By: DM CHERRY Order Number: [id number] Reading MD: Yobani Subramanian Measurements Intervals Dania Rate: 81 P: -24 NM: 164 QRS: 31 QRSD: 87 T: -6 QT: 391 QTc: 454 Interpretive Statements Sinus rhythm Abnormal R-wave progression, early transition Borderline T abnormalities, diffuse leads Electronically Signed On 07-12-2025 10:18:28 PDT by Yobani Subramanian Please click the below link to view image of tracing.
[2025-07-09 14:06] LABS: Glucose, Body Fluid 125.0 mg/dL (.); LD, Body Fluid 46.0 IU/L (.)
== END 2025-07-08 11:24 | disposition left against medical advice (07) | DRG 280 ==
LOC: ER 07:42 → OVERFLOW 10:56
PROC: 0W9G3ZZ Drainage of Peritoneal Cavity, Percutaneous Approach (ICD-10-PCS; principal; 2025-07-08)
DX: K70.31 Alcoholic cirrhosis of liver with ascites (principal); N17.0 Acute kidney failure with tubular necrosis; Z53.29 Procedure and treatment not carried out because of patient's decision for other reasons; I10 Essential (primary) hypertension; E80.6 Other disorders of bilirubin metabolism; E87.1 Hypo-osmolality and hyponatremia; F41.9 Anxiety disorder, unspecified; F32.A Depression, unspecified; Z79.899 Other long term (current) drug therapy; Z87.442 Personal history of urinary calculi; Z80.8 Family history of malignant neoplasm of other organs or systems
CPT/HCPCS: 36415; 49082; 76942; 80053; 83986; 85025; 85610; 85730; 87071; 87205; 89051; 93005; 96374; G0378

== ENCOUNTER 2025-07-26 06:30 | Emergency (ER) | payer MEDICAID ==
[~2025-07-26] VITALS: Ht 165.1 cm; Wt 84.7 kg
[2025-07-26 06:36] VITALS: BP 139/89; PULSE 95; RESP 18; TEMP 98.1; O2SAT 100
--- NOTE | 2025-07-26 07:13 | ED.PDOC ---
History of Present Illness HPI Comments 55-year-old male presents to the ER with prior medical history of anxiety, depression, hypertension, kidney stones: Surgical history of hernia repair and a chief complaint of diffuse abdominal pain. Patient reports on having abdomen is distention, recently being drained two weeks ago and was told to have an appointment with a [facility] to get the abdomen drained. Patient notes on seeing his PCP today at 2:30 p.m. and informed that he has not endoscopy at the end of the month. Denies chills, fever, N/V/D, SOB, CP. No other associated symptoms, modifiers, recent injuries or sick contacts present at this time. Chief Complaint: Abdominal Pain Time Seen by MD: 07:00 Primary Care Provider: NONE Reviewed Notes: Nurses Notes, Medications, Allergies Allergies: Coded Allergies: NO KNOWN ALLERGIES (Unverified , 03/12/20) Home Meds Active Scripts Tamsulosin HCl (Tamsulosin Hydrochloride) 0.4 Mg Cap, 0.4 MG PO HS for 30 Days, #30 CAP Prov:AZAM ANGELES RESIDENT 05/13/25 Furosemide (Lasix) 40 Mg Tab, 40 MG PO DAILY for 30 Days, #30 TAB 3 Refills Prov:JN ABRAHAM MD 04/05/25 Magnesium Oxide (MAGNESIUM OXIDE) 400 Mg Tab, 400 MG OR DAILY for 30 Days, #30 TAB Prov:PORSCHE CROWE RESIDENT 07/31/24 Potassium Chloride (Potassium Chloride ER) 20 Meq Tab, 20 MEQ PO DAILY for 30 Days, #30 TAB Prov:PORSCHE CROWE RESIDENT 07/31/24 Multiple Vitamin (Multivitamins) Tab, 1 TAB PO DAILY for 90 Days, #90 TAB 0 Refills Prov:ANUJ MULLIGAN STONECUTTER APPRENTICE HAND 04/06/24 Sucralfate (CARAFATE) 1 Gm Tab, 1 GM OR QID for 30 Days, #120 TAB Prov:ANUJ MULLIGAN STONECUTTER APPRENTICE HAND 04/06/24 Lisinopril (Lisinopril) 20 Mg Tab, 1 TAB PO DAILYPRN for 60 Days, #60 TAB Prov:ANUJ MULLIGAN STONECUTTER APPRENTICE HAND 04/06/24 Propranolol HCl (Propranolol Hydrochloride) 20 Mg Tab, 1 TAB PO BID for 60 Days, #120 TAB Prov:ANUJ MULLIGAN STONECUTTER APPRENTICE HAND 6/3/24 Reported Medications Pantoprazole Sodium Sesquihydr (Pantoprazole Sodium) 40 Mg Tab, 1 TAB PO BID 04/11/25 Furosemide (Furosemide) 40 Mg Tab, 1 TAB PO DAILY 04/11/25 Cholecalciferol (VITAMIN D3) 2,000 Unit Tab, 1 TAB PO DAILY for 90 Days, #90 02/03/25 Spironolactone (Spironolactone) 25 Mg Tab, 1 TAB PO DAILY for 30 Days, #30 02/03/25 Pantoprazole Sodium Sesquihydr (Protonix) 40 Mg Tab, 1 TAB PO BID for 30 Days, #60 02/02/25 Lactulose (Lactulose) 10 Gm/15 Ml Sharon, ML PO 11/25/24 Acamprosate Calcium (ACAMPROSATE CALCIUM DR) 333 Mg Tab, 333 MG PO QID, TAB 07/31/24 Folic Acid (Folic Acid) 1 Mg Tab, 1 MG PO DAILY, TAB 07/31/24 Thiamine Hcl (VITAMIN B-1) 100 Mg Tb, 1 TAB PO DAILY for 30 Days, #30 07/31/24 Information Source: Patient Mode of Arrival: Ambulatory Severity: Moderate Timing: Weeks Duration: Since onset Prehospital treatment: None Past Medical History PAST MEDICAL HISTORY: Anxiety, Depression, HTN, Kidney Stones, Liver Surgical History: Hernia Repair Family History Family History: Reviewed,noncontributory to illness, Unknown Social History Smoker: Non-Smoker Alcohol: Denies ETOH Use Drugs: Denies Drug Use Lives In: Home Constitutional: denies: chills, diaphoresis, fatigue, fever, malaise, sweats, weakness, others EENTM: denies: blurred vision, double vision, ear bleeding, ear discharge, ear drainage, ear pain, ear ringing, eye pain, eye redness, hearing loss, mouth p ain, mouth swelling, nasal discharge, nose bleeding, nose congestion, nose pain, photophobia, tearing, throat pain, throat swelling, voice changes, others Respiratory: denies: cough, hemoptysis, orthopnea, SOB at rest, shortness of br eath, SOB with excertion, stridor, wheezing, others Cardiovascular: denies: chest pain, dizzy spells, diaphoresis, Dyspnea on exertion, edema, irregular heart beat, left arm pain, lightheadedness, palpitations, PND, syncope, others Gastrointestinal: reports: abdomen distended; denies: abdominal pain, blood streaked bowels, constipated, diarrhea, dysphagia, difficulty swallowing, hematemesis, melena, nausea, poor appetite, poor fluid intake, rectal bleeding, rectal pain, vomiting, others Genitourinary: denies: burning, dysuria, flank pain, frequency, hematuria, incontinence, penile discharge, penile sore, pain, testicle pain, testicle swelling, urgency, others Neurological: denies: dizziness, fainting, headache, left sided numbness, left sided weakness, numbness, paresthesia, pre-existing deficit, right sided numbness, right sided weakness, seizure, speech problems, tingling, tremors, weakness, others Musculoskeletal: denies: back pain, gout, joint pain, joint swelling, muscle pain, muscle stiffness, neck pain, others Integumetry: denies: bruises, change in color, change in hair/nails, dryness, laceration, lesions, lumps, rash, wounds, others Allergic/Immunocompromised: denies: Difficulty Healing, Frequent Infections, Hives, Itching, others Hematologic/Lymphatic: denies: anemia, blood clots, easy bleeding, easy bruisin g, swollen glands, others Endocrine: denies: excessive hunger, excessive sweating, excessive thirst, excessive urination, flushing, intolerance to cold, intolerance to heat, unexplained weight gain, unexplained weight loss, others Psychiatric: denies: anxiety, bipolar disorder, depression, hopeless, panic disorder, schizophrenia, sleepless, suicidal, others All Other Systems: Reviewed and Negative Physical Exam General Appearance: No Apparent Distress, Normal HEENT: Normal ENT Inspection, Pharynx Normal, TMs Normal Neck: Full Range of Motion, Non-Tender, Normal, Normal Inspection Respiratory: Chest Non-Tender, Lungs Clear, No Accessory Muscle Use, No Respiratory Distress, Normal Breath Sounds Cardiovascular: No Edema, No JVD, No Murmur, No Gallop, Normal Peripheral Pulses, Regular Rate/Rhythm Breast Exam: Deferred Gastrointestinal: No Organomegaly, Non Tender, No Pulsatile Mass, Normal Bowel Sounds, Soft Genitalia: Deferred Pelvic: Deferred Rectal: Deferred Extremities: No calf tenderness, Normal capillary refill, Normal inspection, Normal range of motion, Non-tender, No pedal edema Musculoskeletal : Apperance: Normal Neurologic: Alert, plastic outfitter II-XII nml as Tested, No Motor Deficits, Normal Affect, Normal Mood, No Sensory Deficits Cerebellar Function: Normal Reflexes: Normal Skin: Dry, Normal Color, Warm Lymphatic: No Adenopathy Was a procedure done? Was a procedure done?: No Differential Dx Considerations may include: Worsening ascites X-Ray, Labs, Meds, VS Vital Signs Date Time Temp Pulse Resp B/P (MAP) Pulse Ox O2 Delivery O2 Flow Rate FiO2 07/26/25 06:36 98.1 95 18 139/89 100 98.1 Lab Test 07/26/25 07:11 Range/Units White Blood Count 4.3 L 4.4-10.8 10^3/uL Red Blood Count 3.86 L 4.5-5.90 10^6/uL Hemoglobin 14.2 13.5-17.5 g/dL Hematocrit 38.7 L 41.0-53.0 % Mean Corpuscular Volume 100.3 H 80.0-100.0 fL Mean Corpuscular Hemoglobin 36.9 H 28.0-32.0 pg Mean Corpuscular Hemoglobin Concent 36.8 H 32.0-36.0 g/dL Red Cell Distribution Width 15.0 H 11.8-14.3 % Platelet Count 145 140-450 10^3/uL Mean Platelet Volume 6.3 L 6.9-10.8 fL Neutrophils (%) (Auto) 60.4 37.0-80.0 % Lymphocytes (%) (Auto) 16.1 10.0-50.0 % Monocytes (%) (Auto) 17.5 H 0.0-12.0 % Eosinophils (%) (Auto) 5.0 0.0-7.0 % Basophils (%) (Auto) 1.0 0.0-2.0 % Neutrophils # (Auto) 2.6 1.6-8.6 10 ^3/uL Lymphocytes # (Auto) 0.7 0.4-5.4 10 ^3/uL Monocytes # (Auto) 0.7 0-1.3 10 ^3/uL Eosinophils # (Auto) 0.2 0-0.8 10 ^3/uL Basophils # (Auto) 0 0-0.2 10 ^3/uL Nucleated Red Blood Cells 0.2 % Prothrombin Time 11.7 9.3-11.8 sec Prothrombin Time INR 1.12 0.9-1.15 Activated Partial Thromboplast Time 28.6 24.5-34.5 SEC Sodium Level 129 L 136-145 mmol/L Potassium Level 4.6 3.5-5.1 mmol/L Chloride Level 102 98-107 mmol/L Carbon Dioxide Level 19 L 20-31 mmol/L Anion Gap 8 5-15 Blood Urea Nitrogen 8 L 9-23 mg/dL Creatinine 1.07 0.700-1.30 mg/dL Glomerular Filtration Rate Calc 82 >90 mL/min BUN/Creatinine Ratio 7.5 L 10.0-20.0 Serum Glucose 104 74-106 mg/dL Calcium Level 8.6 L 8.7-10.4 mg/dL Time of 1ST Reevaluation: 07:30 Reevaluation 1ST: Unchanged Patient Education/Counseling: Diagnosis, Treatment, Prognosis Family Education/Counseling: No Family Present SEPSIS Sepsis Screen Date sepsis recognized/suspect: Jul 26, 2025 Time Sepsis recognized/suspect: 638 Recent Procedure: No On Antibiotic Therapy: No Respiratory Rate >20: No Heart Rate >90: Yes Temp<36 C (96.8 F) or >38.3 C: No SBP <90 or MAP <65 mmHG: No New Acute Mental Status Change: No Is the patient on CPAP, BIPAP,: No Vital Signs Date Time Temp Pulse Resp B/P (MAP) Pulse Ox O2 Delivery O2 Flow Rate FiO2 07/26/25 06:36 98.1 95 18 139/89 100 98.1 Laboratory Tests Test 07/26/25 07:11 White Blood Count 4.3 10^3/uL (4.4-10.8) L Departure 1 Departure Time of Disposition: 10:41 (Patient with a worsening ascites and has follow up this afternoon with his regular doctors. We will discharge patient home with outpatient follow up) Impression: Primary Impression: Abdominal ascites Qualified Codes: R18.8 - Other ascites Disposition: 01 HOME / SELF CARE / HOMELESS Condition: Stable Additional Instructions: It is important to follow up with the regular doctors this afternoon. Discharged With: Self Critical Care Note Critical Care Time?: No Stability Stability form required: No I personally scribed for DM CHERRY MD ([email or web address]) on 07/26/25 at 07:13. Electr onically submitted by Caio Falk ([email or web address]). DM CHERRY MD Jul 26, 2025 07:13
[2025-07-26 07:28] LABS: Hematocrit 38.7 % (41.0-53.0); Hemoglobin 14.2 g/dL (13.5-17.5); Mean Corpuscular Hemoglobin 36.9 pg (28.0-32.0); Mean Corpuscular Volume 100.3 fL (80.0-100.0); Nucleated Red Blood Cells % 0.2 %
[2025-07-26 07:42] LABS: INR 1.12 (0.9-1.15); Partial Thromboplastin Time 28.6 SEC (24.5-34.5); Prothrombin Time 11.7 sec (9.3-11.8)
[2025-07-26 07:48] LABS: Chloride 102 mmol/L (98-107); Potassium 4.6 mmol/L (3.5-5.1)
[2025-07-26 07:49] LABS: Anion Gap 8 (5-15)
[2025-07-26 07:53] LABS: Calcium 8.6 mg/dL (8.7-10.4); Carbon Dioxide 19 mmol/L (20-31); Sodium 129 mmol/L (136-145)
[2025-07-26 07:54] LABS: BUN/Creatinine Ratio 7.5 (10.0-20.0); Glucose 104 mg/dL (74-106)
[2025-07-26 07:55] LABS: Blood Urea Nitrogen 8 mg/dL (9-23)
== END 2025-07-26 11:02 | disposition home or self-care (01) ==
LOC: ER 06:40
DX: R18.8 Other ascites (principal); I10 Essential (primary) hypertension; F41.9 Anxiety disorder, unspecified; F32.A Depression, unspecified; Z87.442 Personal history of urinary calculi; Z79.899 Other long term (current) drug therapy; Z98.890 Other specified postprocedural states
CPT/HCPCS: 36415; 80048; 85025; 85610; 85730